=== PATIENT | female | born 1995 | race Caucasian/White ===

== ENCOUNTER → 2017-05-30 18:09 | Outpatient (CLI) | payer MEDICAID, SELFPAY ==
[2017-05-30 20:51] LABS: Chlamydia Trachomatis by PCR Negative (Negative); Neisserai gonorrhoeae by PCR Negative (Negative); Probe Check PASS; Sample Adequacy Control PASS; Specimen Processing Control PASS
== END ==
PROVIDERS: Visit Provider Obstetrics & Gynecology
DX: N89.8 Other specified noninflammatory disorders of vagina (principal); L29.8 Other pruritus
CPT/HCPCS: 87070; 87205; 87491; 87591

== ENCOUNTER → 2017-07-15 11:46 | Outpatient (CLI) | payer MEDICAID, SELFPAY ==
[2017-07-15 16:31] LABS: Absolute Lymphocyte Count 3.25 X10^3/ul (0.83-4.51); Absolute Neutrophil Count 8.9 X10^3/uL (2.0-7.7); Basophil# 0.05 X10^3/uL; Basophil% 0.4 % (0-1); Hematocrit 36.9 % (37-47); Hemoglobin 11.7 g/dl (12.0-15.0); Lymphocyte # 3.25 X10^3/ul (4.0); Lymphocyte % 24.2 % (19-41); Mean Corp Hgb Conc 31.7 g/gl (32-36); Mean Corpuscular Volume 85.2 fL (81-99); Mean Platelet Vol. 10.6 fl (6.2-12.0); Monocyte# 0.73 X10^3/uL; Monocyte% 5.4 % (0-10); Neutrophil # 8.93 X10^3/uL (2.7-7.7); Neutrophil % 66.6 % (47-70); Platelet Count 427 K/mm3 (150-450); RBC Distribution Width CV 14.5 % (11.6-14.6); RBC Distribution Width SD 44.4 fl (35.1-43.9); Red Blood Count 4.33 M/mm3 (4.2-5.4); White Blood Count 13.4 K/mm3 (4.4-11.0)
[2017-07-15 16:40] LABS: POSITIVE COUNT NO; POSITIVE DIFFERENTIAL NO; POSITIVE MORPHOLOGY NO
== END ==
PROVIDERS: Nurse Practitioner Women's Health; Visit Provider Obstetrics & Gynecology
DX: N92.1 Excessive and frequent menstruation with irregular cycle (principal)
CPT/HCPCS: 36415; 85025

== ENCOUNTER → 2017-07-18 13:26 | Outpatient (CLI) | payer MEDICAID, SELFPAY ==
--- NOTE | 2017-07-18 13:27 | US_ITS ---
STUDY: ULTRASOUND OF THE FEMALE PELVIS - COMPLETE REASON FOR EXAM: Female, 22 years old. Menorrhagia LMP: 07/08/2017 TECHNIQUE: Transabdominal and Transvaginal TECHNICAL QUALITY: Adequate. COMPARISON: None. FINDINGS: The uterus is anteverted and is in a midline position. The uterus measures 8.3 x 4.5 x 3.1 cm. There is a Nabothian cyst of the cervix. The endometrium measures 3 mm in thickness, and is hyperechoic. There is no demonstrated endometrial mass. There is no demonstrated myometrial mass. I.U.D. - The patient does not have an I.U.D. The right ovary is visualized. The right ovary measures 4.1 x 2.6 x 2.6 cm. There is no right ovarian cyst or ovarian mass. There is no visualized right adnexal mass or complex lesion. There is normal arterial and normal venous vascularity. The left ovary is visualized. The left ovary measures 2.7 x 2.7 x 3.8 cm. There is no left ovarian cyst or ovarian mass. There is no visualized left adnexal mass or complex lesion. There is normal arterial and normal venous vascularity. There is minimal fluid in the cul-de-sac. The pre void volume of the bladder was 44 ml. Polycystic ovary disease: No. US/Pelvic (Non ) IMPRESSION: Normal female pelvis. Electronically Signed: Blake Pennington DO at 15:09 EDT Tel , Service support ,
--- NOTE | 2017-07-18 13:27 | US_ITS ---
STUDY: ULTRASOUND OF THE FEMALE PELVIS - COMPLETE REASON FOR EXAM: Female, 22 years old. Menorrhagia LMP: 07/08/2017 TECHNIQUE: Transabdominal and Transvaginal TECHNICAL QUALITY: Adequate. COMPARISON: None. FINDINGS: The uterus is anteverted and is in a midline position. The uterus measures 8.3 x 4.5 x 3.1 cm. There is a Nabothian cyst of the cervix. The endometrium measures 3 mm in thickness, and is hyperechoic. There is no demonstrated endometrial mass. There is no demonstrated myometrial mass. I.U.D. - The patient does not have an I.U.D. The right ovary is visualized. The right ovary measures 4.1 x 2.6 x 2.6 cm. There is no right ovarian cyst or ovarian mass. There is no visualized right adnexal mass or complex lesion. There is normal arterial and normal venous vascularity. The left ovary is visualized. The left ovary measures 2.7 x 2.7 x 3.8 cm. There is no left ovarian cyst or ovarian mass. There is no visualized left adnexal mass or complex lesion. There is normal arterial and normal venous vascularity. There is minimal fluid in the cul-de-sac. The pre void volume of the bladder was 44 ml. Polycystic ovary disease: No. US/Transvaginal Non- IMPRESSION: Normal female pelvis. Electronically Signed: Blake Pennington DO at 15:09 EDT Tel , Service support ,
== END ==
PROVIDERS: Family Provider Nurse Practitioner Family; PCP Nurse Practitioner Family; Visit Provider Nurse Practitioner Women's Health
DX: N92.1 Excessive and frequent menstruation with irregular cycle (principal)
CPT/HCPCS: 76830; 76856; 93976

== ENCOUNTER 2017-12-03 14:38 | Emergency (ER) | payer MEDICAID, SELFPAY ==
[2017-12-03 14:38] VITALS: BP 167/98; PULSE 99; RESP 16; TEMP 37.2; O2SAT 98; BMI 48.5
--- NOTE | 2017-12-03 16:03 | ED.DCSUM_ITS ---
- ER Visit Summary Date of Service: 12/03/17 Chief Complaint: Abdominal pain and diarrhea History of Present Illness: The patient is a 22 F who goes to the [facility]. She reports that 2 days ago she had 4-6 episodes of diarrhea that was not black or bloody. States that she had no diarrhea yesterday. Approximately 930 yesterday evening she took a dose of Pepto-Bismol for heartburn/indigestion. States that today she has had 4 episodes of diarrhea. 3 of these have been black and the last one was dark green. Patient reports that she has cramping epigastric pain that began today. Stated 10 at worst and 6 out of 10 currently. Is worsened by food and relieved by remaining still. She has had nausea without vomiting. She also reports that she has had a poor appetite for 1-2 weeks. She has never had anything like this before. Patient denies sick contacts. Has not been camping out of the country. No possible bad food exposure. Does not drink well water. No recent antibiotic use. Physical Examination: Vitals: Stable. Afebrile. General: Well-nourished and well-developed. Head: Normocephalic atraumatic. Neck: Supple, no lymphadenopathy. No JVD. Nontender. Cardiovascular: Regular rate and rhythm. No murmurs. Respiratory: No respiratory distress. Clear to auscultation bilaterally. Abdominal: Soft, mild epigastric tenderness to palpation, nondistended, normal bowel sounds. No guarding, rebound, or peritoneal signs. Back: Nontender. Extremities: Nontender, no edema. Skin: Normal color, no rash. Neurologic: Alert and oriented ?3. Cranial nerves II through XII are intact. Normal strength and sensation. Psych: Normal affect. Test Results: CBC is remarkable for a white count of 15.0, H&H of 11.0 and 35.9 , platelets of 451. Chem-7 is normal. Of note her BUN is 10. LFTs marked for an AST of 10. Lipase is normal. test is negative. Emergency Department Course and Treatment: Patient was given a dose of Zofran IV and a GI cocktail p.o. She is resting comfortably. Treatment Plan: I suspect the patient's black stool was from the Pepto-Bismol she took yesterday. She will be discharged on Prilosec and Zofran. Instructed to follow-up the [facility] Pastor in 3-5 days if not improving. Return to the emergency department for any worsening symptoms. Disposition: To home in improved and stable condition. Impression: 1. Diarrhea. This note was generated with [employer] dictation software. It may contain incorrect words, spelling, and punctuation that were not noted in review of the chart prior to signing ED Disposition - Plan for ED Patient: Chief Complaint: GI Bleed Instructions: ED Diarrhea Viral Prescriptions: Ondansetron [Zofran Odt] 4 mg PO Q8H PRN PRN #10 tablet PRN Reason: Nausea Omeprazole [Prilosec] 20 mg PO DAILY #30 capsule Referrals: [facility] Lur[facility] Pastor [Primary Care Provider] - 3-5 Days if not improving
[2017-12-03] MEDS: 0.9% Normal Saline 1,000 ML 1000 ML IV (16:06)
[2017-12-03] MEDS: Mag Hydrox/Al Hydrox/Simeth 30 ML UDC PO (16:06)
[2017-12-03] MEDS: Ondansetron 4 MG/2 ML Vial IV (16:06)
[2017-12-03 16:11] LABS: Absolute Lymphocyte Count 3.45 X10^3/ul (0.83-4.51); Absolute Neutrophil Count 10.4 X10^3/uL (2.0-7.7); Basophil# 0.05 X10^3/uL; Basophil% 0.3 % (0-1); Eosinophils% 3.3 % (0-5); Hematocrit 35.9 % (37-47); Lymphocyte # 3.45 X10^3/ul (4.0); Lymphocyte % 22.9 % (19-41); Mean Corp Hgb Conc 30.6 g/gl (32-36); Mean Corpuscular Hgb 24.8 pg (27.0-32.0); Mean Corpuscular Volume 80.9 fL (81-99); Mean Platelet Vol. 9.8 fl (6.2-12.0); Monocyte# 0.67 X10^3/uL; Monocyte% 4.5 % (0-10); Neutrophil # 10.35 X10^3/uL (2.7-7.7); Neutrophil % 68.9 % (47-70); Platelet Count 451 K/mm3 (150-450); RBC Distribution Width CV 15.5 % (11.6-14.6); RBC Distribution Width SD 45.7 fl (35.1-43.9); Red Blood Count 4.44 M/mm3 (4.2-5.4)
[2017-12-03 16:15] LABS: POSITIVE COUNT NO; POSITIVE DIFFERENTIAL NO; POSITIVE MORPHOLOGY NO
[2017-12-03 16:20] LABS: AST(SGOT) 10 U/L (15-37); Alanine Aminotransfer ALT/SGPT 15 U/L (13-56); Albumin, Serum 3.2 g/dL (3.2-5.0); Alkaline Phosphatase 86 U/L (45-117); Anion Gap 6 (5-15); BUN 10 mg/dL (7-18); BUN/Creat Ratio 13.5 RATIO (10-20); Bilirubin, Direct 0.09 mg/dL (0.00-0.30); Calcium,Total 8.7 mg/dL (8.5-10.1); Chloride 107 mmol/L (98-107); Creatinine, Serum 0.74 mg/dL (0.55-1.02); EST Glomerular Filtration Rate 105 mL/min (>60); Est Glom Filt Rate - Afr Amer 127 mL/min (>60); Estimated Creatinine Clearance 116.95 ml/min; Glucose 93 mg/dL (74-106); Lipase 104 U/L (73-393); Potassium 3.5 mmol/L (3.5-5.1); Protein, Total 7.2 g/dL (6.4-8.2); Sodium Level 142 mmol/L (136-145)
[2017-12-03 16:29] LABS: Pregnancy, Serum, hCG Quali. NEGATIVE Negative (0-9 Nonpreg)
[2017-12-03 16:55] VITALS: BP 128/74; PULSE 79; RESP 14; O2SAT 98
== END 2017-12-03 16:56 | disposition home or self-care (01) ==
LOC: ED 15:32
PROVIDERS: Emergency Provider Emergency Medicine
DX: R19.7 Diarrhea, unspecified (principal); R10.13 Epigastric pain
CPT/HCPCS: 80048; 80076; 83690; 84703; 85025; 99284; J7030; A4216; J2405

== ENCOUNTER 2018-04-16 14:52 | Emergency (ER) | payer MEDICAID, SELFPAY ==
[2018-04-16 14:52] VITALS: BMI 47.3
[2018-04-16 14:53] VITALS: BP 179/91; PULSE 101; RESP 18; TEMP 36.4; O2SAT 100; BMI 47.1
--- NOTE | 2018-04-16 16:31 | ED.DCSUM_ITS ---
- ER Visit Summary Date of Service: 04/16/18 Chief Complaint: Atraumatic left shoulder pain and foot pain times 1 month History of Present Illness: The patient is a 22 F Patient presents with atraumatic left shoulder pain and left foot pain. She denies any paresthesia, anesthesia motors. She denies radicular pain. She does report pain medial side of the left arm and states occasionally will shoot down to her wrist. She states she may have lifted something heavy. She does not do overhead work. She has no prior history of shoulder problems. She denies cardiac respiratory symptoms. Her blood pressure is elevated. She denies history of hypertension. She states the pain in her foot is worse when she puts pressure on it. She denies symptoms of claudication. She denies discoloration. There is no known history. Physical Examination: Vital signs remarkable for a blood pressure of 179/91. Repeat is 157/86. BMI is 47.2. HEENT exam unremarkable. There is no pain abrasion over the clavicle or AC joint. She has had pain the patient over the deltoid muscle and proximal humerus. She reports pain medial side with abduction to 90 degrees. Axillary, median, radial and ulnar function intact. Biceps, brachialis and triceps reflex are 2+ and symmetric. Radial pulses palpable and symmetric. Examination left foot reveals no swelling, discoloration. There is no pain to palpation. DP PT pulses are palpable. No rash or lesions noted. Test Results: Three-view x-ray of shoulder was interpreted by me as negative for fracture, subluxation, dislocation or calcification of the supraspinatus tendon. Emergency Department Course and Treatment: X-ray of the left shoulder was obtained to determine if there is evidence of calcification of the supraspinatus tendon or any abnormalities would explain her pain. Treatment Plan: Avoid activity causing pain, ice and anti-inflammatory Disposition: Discharged home Impression: 1. Left shoulder muscle strain nonspecified 2. Left foot pain unknown etiology This note was generated with [employer] dictation software. It may contain incorrect words, spelling, and punctuation that were not noted in review of the chart prior to signing ED Disposition - Plan for ED Patient: Chief Complaint: Upper Extremity Injury Instructions: ED Sprain Shoulder Referrals: Lurdes Arellano [Primary Care Provider] - 1 Week if not improving
--- NOTE | 2018-04-16 16:45 | RAD_ITS ---
STUDY: X-RAY - LEFT SHOULDER REASON FOR EXAM: Female, 22 years old. Left shoulder pain. Unsure of injury. TECHNIQUE: 4 view(s) of the shoulder. COMPARISON: None. FINDINGS: Normal glenohumeral articulation. Normal acromioclavicular joint. Normal acromion. Normal humeral head and visualized proximal humerus. The soft tissue structures are unremarkable. Normal visualized pulmonary apex. RAD/Shoulder min 2 Views IMPRESSION: Normal x-ray examination of the shoulder. Electronically Signed: Thierno Booth MD at 17:24 EST Tel , Service support ,
[2018-04-16 17:06] VITALS: BP 134/80; PULSE 94; RESP 16
== END 2018-04-16 17:07 | disposition home or self-care (01) ==
PROVIDERS: Emergency Provider Emergency Medicine
DX: S46.912A Strain of unspecified muscle, fascia and tendon at shoulder and upper arm level, left arm, initial encounter (principal); X58.XXXA Exposure to other specified factors, initial encounter; M79.672 Pain in left foot; E66.9 Obesity, unspecified; Z68.42 Body mass index [BMI] 45.0-49.9, adult; Z79.899 Other long term (current) drug therapy
CPT/HCPCS: 73030; 99282

== ENCOUNTER 2018-10-07 14:48 | Emergency (ER) | payer MEDICAID, SELFPAY ==
[2018-10-07 14:50] VITALS: BP 167/96; PULSE 101; RESP 18; TEMP 36.2; BMI 47.1
--- NOTE | 2018-10-07 15:12 | ED.VISSUMM ---
- ER Visit Summary Date of Service: 10/07/18 Chief Complaint: [Abdominal pain] History of Present Illness: The patient is a 23 F [presents the emergency department with complaint of abdominal pain that she is had off-and-on for couple of months. Patient states that over the last week she has had decreased appetite and nausea. Patient's complaining of a change in her stool that is somewhat black and kevin. Patient denies using ibuprofen or any type of NSAIDs on a regular basis. Patient is currently on her menstrual period. She denies any fevers. She denies diarrhea but states that the stool is more loose. She denies recent travel. She denies recent antibiotic usage. Patient has a history of PCOS and hypothyroidism. Past surgical history includes tonsils and adenoids.] Physical Examination: [HEENT-PERRLA, EOMI. Cranial nerves II through XII grossly intact. TMs clear. Mucous membranes moist. No adenopathy. Cardiovascular-regular rate and rhythm without murmur or ectopy Lungs-clear to auscultation, chest wall stable without crepitus or subcu emphysema Abdomen-normoactive bowel sounds, soft. Patient has some mild diffuse tenderness over the epigastric region. There is no rebound, rigidity, or perineal signs. No tenderness over McBurney's. She has a negative Clement sign. No masses palpated. Patient is morbidly obese. Rectal exam-patient had no hemorrhoids or fissures noted. No rectal masses palpated in the rectal vault. Patient had brown stool that was formed. Extremities-intact ?4, normal range of motion, normal pulses, atraumatic] Test Results: [CBC with differential white of 14.6, hemoglobin 12, hematocrit 38, placed 398. Chemistries unremarkable. LFTs were normal. Lipase was normal. Urinalysis was normal. hCG was negative. Hemoccult was negative. CT flank showed a right ovarian cyst otherwise nothing acute. She has no tenderness over the right lower quadrant and I feel the cyst is in incidental finding and not the cause of her symptoms.] Emergency Department Course and Treatment: [She was given normal saline and Zofran.] Treatment Plan: [Patient will be given a prescription for Zofran and referral to general surgery medical transcription radiology if her symptoms persist as she may need further work-up such as possibly EGD or colonoscopy.] Disposition: [Discharged home in stable condition] Impression: Abdominal pain-etiology uncertain [] This note was generated with [employer] dictation software. It may contain incorrect words, spelling, and punctuation that were not noted in review of the chart prior to signing ED Disposition - Plan for ED Patient: Referrals: Mariana Pastor,Lurdes Goff [Primary Care Provider] -
[2018-10-07 15:32] LABS: Absolute Lymphocyte Count 3.17 X10^3/ul (0.83-4.51); Absolute Neutrophil Count 10.4 X10^3/uL (2.0-7.7); Basophil# 0.04 X10^3/uL; Basophil% 0.3 % (0-1); Eosinophil# 0.33 X10^3/uL; Eosinophils% 2.3 % (0-5); Hematocrit 38.5 % (37-47); Hemoglobin 12.5 g/dl (12.0-15.0); Lymphocyte # 3.17 X10^3/ul (4.0); Lymphocyte % 21.8 % (19-41); Mean Corp Hgb Conc 32.5 g/gl (32-36); Mean Corpuscular Hgb 25.8 pg (27.0-32.0); Mean Corpuscular Volume 79.5 fL (81-99); Mean Platelet Vol. 9.5 fl (6.2-12.0); Monocyte% 4.1 % (0-10); Neutrophil % 71.3 % (47-70); Platelet Count 398 K/mm3 (150-450); RBC Distribution Width CV 15.8 % (11.6-14.6); RBC Distribution Width SD 46.1 fl (35.1-43.9); Red Blood Count 4.84 M/mm3 (4.2-5.4); White Blood Count 14.6 K/mm3 (4.4-11.0)
[2018-10-07 15:35] LABS: POSITIVE COUNT NO; POSITIVE DIFFERENTIAL NO; POSITIVE MORPHOLOGY NO
[2018-10-07 15:47] LABS: ALB/GLOB Ratio 0.8 RATIO (0.9-2.4); AST(SGOT) 13 U/L (15-37); Alanine Aminotransfer ALT/SGPT 14 U/L (13-56); Albumin, Serum 3.3 g/dL (3.2-5.0); Alkaline Phosphatase 107 U/L (45-117); Anion Gap 8 (5-15); BUN 9 mg/dL (7-18); BUN/Creat Ratio 11.1 RATIO (10-20); Calcium,Total 8.9 mg/dL (8.5-10.1); Chloride 104 mmol/L (98-107); Creatinine, Serum 0.81 mg/dL (0.55-1.02); EST Glomerular Filtration Rate 94 mL/min (>60); Est Glom Filt Rate - Afr Amer 113 mL/min (>60); Estimated Creatinine Clearance 105.94 ml/min; Glucose 111 mg/dL (74-106); Lipase 85 U/L (73-393); Potassium 3.6 mmol/L (3.5-5.1); Protein, Total 7.3 g/dL (6.4-8.2); Sodium Level 139 mmol/L (136-145)
[2018-10-07 15:54] LABS: Internal QC Validated? YES +Cl - CLEAR BKGD; Pregnancy, Serum, hCG Quali. NEGATIVE Negative
[2018-10-07 15:58] LABS: Lactic Acid 1.1 mmol/L (0.4-2.0)
[2018-10-07 16:07] LABS: Color, Urine Yellow (Yellow); Glucose, Dipstick Normal (Normal); Ketone-Dipstick 5 mg/dl (Negative); Leukocyte Esterase-Dipstick 25 /ul (Negative); Nitrite-Dipstick Negative (Negative); Occult Blood-Urine 10 /ul (Negative); Protein-Dipstick 15 mg/dl (Negative); Red Blood Cells-Urine 0 SEEN /hpf (0-5); Urine Bilirubin Dipstick Negative (Negative); Urine Clarity Clear (Clear); Urine Urobilinogen Normal (Normal); Urine pH 6.5 (5.0 - 8.0)
--- NOTE | 2018-10-07 16:07 | CT_ITS ---
STUDY: CT ABDOMEN AND PELVIS WITHOUT CONTRAST REASON FOR EXAM: Female, 23 years old. Epigastric abdominal pain. RADIATION DOSAGE (If Supplied By Facility): CTDIvol = ( 23.49 ) mGy, DLP = ( 1460.32 ) mGycm TECHNIQUE: Transaxial images were obtained from the dome of the diaphragm to the symphysis pubis without oral contrast, and without intravenous contrast. Sagittal and coronal images were reconstructed. Individualized dose optimization techniques were used for this CT. COMPARISON: None. FINDINGS: Lung bases are clear. Visualized heart is normal. The liver is unremarkable. The gallbladder is unremarkable. The spleen and pancreas are unremarkable. The adrenal glands are normal. The kidneys are unremarkable. No stones or hydronephrosis. The aorta is normal in caliber. There is no free fluid, free air, or organized collection. No bowel obstruction or inflammatory change. Normal appendix. Urinary bladder is unremarkable. The right ovary is prominent compared to the left. There is a 2.6 cm cyst, likely physiologic but slightly greater than a typical follicular cyst. Normal abdominal wall. Normal osseous structures. CT/Abdomen/Pelvis without Cont IMPRESSION: Mild right ovarian prominence with a 2.6 cm cyst or dominant follicle. Consider pelvic ultrasound with duplex imaging if the patient has pelvic pain. Electronically Signed: Ranjana Turcios MD at 16:57 EDT Tel , Service support ,
[2018-10-07 16:18] LABS: Bacteria RARE /hpf (None Seen); Mucous, Urine 3+ /hpf (<or=2+); Squamous Epithelial Cells - UA 0-5 SEEN /hpf (5-10); White Blood Cells 0-5 SEEN /hpf (0-5)
--- NOTE | 2018-10-07 17:03 | ED.DEP ---
ED Disposition - Plan for ED Patient: Instructions: ABDOMINAL PAIN, Unknown Cause, (Female) Prescriptions: Ondansetron [Zofran Odt] 4 mg PO Q8H PRN PRN #10 tab PRN Reason: Nausea Prescription Printed Referrals: Lurdes Arellano [Primary Care Provider] - Yaneth Ontiveros MD [STAFF PHYSICIAN] - 3-5 Days
[2018-10-07 17:23] VITALS: BP 150/81; PULSE 86; RESP 18
== END 2018-10-07 17:16 | disposition home or self-care (01) ==
LOC: ED 15:18
PROVIDERS: Emergency Provider Emergency Medicine
DX: R10.13 Epigastric pain (principal); E03.9 Hypothyroidism, unspecified; E28.2 Polycystic ovarian syndrome; Z79.899 Other long term (current) drug therapy; Z72.0 Tobacco use
CPT/HCPCS: 74176; 80053; 81001; 82274; 83605; 83690; 84703; 85025; 99283; A4216

== ENCOUNTER → 2018-10-20 13:55 | Outpatient (CLI) | payer MEDICAID, SELFPAY ==
[2018-10-07 14:50] VITALS: BMI 47.1
--- NOTE | 2018-10-20 13:57 | US_ITS ---
STUDY: ULTRASOUND OF THE FEMALE PELVIS - COMPLETE REASON FOR EXAM: Female, 23 years old. Pain LMP: October 15, 2018 TECHNIQUE: Endovaginal TECHNICAL QUALITY: Adequate. COMPARISON: None. FINDINGS: The uterus is anteverted and is in a midline position. The uterus measures 6.9 x 4.5 x 2.5 cm. Nabothian cyst at the uterine cervix. The endometrium measures 2.3 mm in thickness, and is hyperechoic. There is no demonstrated endometrial mass. There is no demonstrated myometrial mass. The patient does not have an I.U.D. The right ovary is visualized. The right ovary measures 5.7 x 3.2 x 3.0 cm. There is a 3 cm right ovarian cyst. A 3 mm echogenic focus with posterior shadowing possibly a focal calcification. There is normal arterial and normal venous vascularity. The left ovary is visualized. The left ovary measures 3.8 x 3.2 x 2.6 cm. There is no left ovarian cyst or ovarian mass. There is no visualized left adnexal mass or complex lesion. There is normal arterial and normal venous vascularity. There is no fluid in the cul-de-sac. The pre void volume of the bladder was 145 ml. US/Pelvic (Non ) IMPRESSION: Nabothian cyst. Right ovarian cyst and possible calcific focus. Electronically Signed: Kristian Lange DO at 18:28 EDT Tel [phone], Service support ,
--- NOTE | 2018-10-20 13:57 | US_ITS ---
STUDY: ULTRASOUND OF THE FEMALE PELVIS - COMPLETE REASON FOR EXAM: Female, 23 years old. Pain LMP: October 15, 2018 TECHNIQUE: Endovaginal TECHNICAL QUALITY: Adequate. COMPARISON: None. FINDINGS: The uterus is anteverted and is in a midline position. The uterus measures 6.9 x 4.5 x 2.5 cm. Nabothian cyst at the uterine cervix. The endometrium measures 2.3 mm in thickness, and is hyperechoic. There is no demonstrated endometrial mass. There is no demonstrated myometrial mass. The patient does not have an I.U.D. The right ovary is visualized. The right ovary measures 5.7 x 3.2 x 3.0 cm. There is a 3 cm right ovarian cyst. A 3 mm echogenic focus with posterior shadowing possibly a focal calcification. There is normal arterial and normal venous vascularity. The left ovary is visualized. The left ovary measures 3.8 x 3.2 x 2.6 cm. There is no left ovarian cyst or ovarian mass. There is no visualized left adnexal mass or complex lesion. There is normal arterial and normal venous vascularity. There is no fluid in the cul-de-sac. The pre void volume of the bladder was 145 ml. US/Transvaginal Non- IMPRESSION: Nabothian cyst. Right ovarian cyst and possible calcific focus. Electronically Signed: Kristian Lange DO at 18:28 EDT Tel [phone], Service support ,
== END ==
PROVIDERS: Referring Provider Obstetrics & Gynecology; Visit Provider Obstetrics & Gynecology
DX: R10.2 Pelvic and perineal pain (principal)
CPT/HCPCS: 76830; 76856; 93976

== ENCOUNTER → 2018-11-05 14:35 | Outpatient (CLI) | payer MEDICAID, SELFPAY ==
[2018-11-05 11:09] VITALS: BMI 47.1
[2018-11-05 16:45] LABS: Chlamydia Trachomatis by PCR Negative (Negative); Neisserai gonorrhoeae by PCR Negative (Negative); Probe Check PASS; Sample Adequacy Control PASS; Specimen Processing Control PASS
[2018-11-11 10:54] LABS: HPV Reflexed? NOT INDICATED
== END ==
PROVIDERS: Referring Provider Nurse Practitioner Women's Health; Visit Provider Nurse Practitioner Women's Health
DX: Z12.4 Encounter for screening for malignant neoplasm of cervix (principal); A64 Unspecified sexually transmitted disease
CPT/HCPCS: 87491; 87591; 87624; 88175; G0145

== ENCOUNTER → 2018-12-24 08:00 | Outpatient (CLI) | payer MEDICAID, SELFPAY ==
[2018-11-05 11:09] VITALS: BMI 47.1
--- NOTE | 2018-12-24 08:02 | US_ITS ---
STUDY: ULTRASOUND OF THE FEMALE PELVIS - COMPLETE REASON FOR EXAM: Female, 23 years old. Follow-up right ovarian cyst . LMP: December 11, 2018. TECHNIQUE: Transabdominal and Transvaginal TECHNICAL QUALITY: Adequate. COMPARISON: Pelvic ultrasound, October 20, 2018. FINDINGS: The uterus is anteverted and is in a midline position. The uterus measures 7.8 x 3.0 x 4.2 cm cm. There is a Nabothian cyst of the cervix. The endometrium measures mm in thickness, and is hyperechoic. There is no demonstrated endometrial mass. There is no demonstrated myometrial mass. I.U.D. - The patient does not have an I.U.D. The right ovary is visualized. The right ovary measures 5.5 x 2.9 x 2.5 cm. There is a 2.6 x 3.0 x 2.0 cm simple cyst. This appears essentially stable. Focal calcification described on the prior study is not appreciated. There is no visualized right adnexal mass or complex lesion. There is normal arterial and normal venous vascularity. The left ovary is visualized. The left ovary measures 4.2 x 3.2 x 2.5 cm. There are multiple follicles of the left ovary without a dominant cyst. There is no visualized left adnexal mass or complex lesion. There is normal arterial and normal venous vascularity. There is no fluid in the cul-de-sac. The urinary bladder was incompletely distended. Polycystic ovary disease: No. US/Pelvic (Non ) IMPRESSION: 1. Stable right renal cyst. The questionable calcific focus seen on the prior study is no longer noted. 2. Stable uterus and left ovary. Electronically Signed: Miguelito Mares DO at 17:29 EDT Tel [phone], Service support ,
--- NOTE | 2018-12-24 08:02 | US_ITS ---
STUDY: ULTRASOUND OF THE FEMALE PELVIS - COMPLETE REASON FOR EXAM: Female, 23 years old. Follow-up right ovarian cyst . LMP: December 11, 2018. TECHNIQUE: Transabdominal and Transvaginal TECHNICAL QUALITY: Adequate. COMPARISON: Pelvic ultrasound, October 20, 2018. FINDINGS: The uterus is anteverted and is in a midline position. The uterus measures 7.8 x 3.0 x 4.2 cm cm. There is a Nabothian cyst of the cervix. The endometrium measures mm in thickness, and is hyperechoic. There is no demonstrated endometrial mass. There is no demonstrated myometrial mass. I.U.D. - The patient does not have an I.U.D. The right ovary is visualized. The right ovary measures 5.5 x 2.9 x 2.5 cm. There is a 2.6 x 3.0 x 2.0 cm simple cyst. This appears essentially stable. Focal calcification described on the prior study is not appreciated. There is no visualized right adnexal mass or complex lesion. There is normal arterial and normal venous vascularity. The left ovary is visualized. The left ovary measures 4.2 x 3.2 x 2.5 cm. There are multiple follicles of the left ovary without a dominant cyst. There is no visualized left adnexal mass or complex lesion. There is normal arterial and normal venous vascularity. There is no fluid in the cul-de-sac. The urinary bladder was incompletely distended. Polycystic ovary disease: No. US/Transvaginal Non- IMPRESSION: 1. Stable right renal cyst. The questionable calcific focus seen on the prior study is no longer noted. 2. Stable uterus and left ovary. Electronically Signed: Miguelito Mares DO at 17:29 EDT Tel [phone], Service support ,
== END ==
PROVIDERS: Referring Provider Nurse Practitioner Women's Health; Visit Provider Nurse Practitioner Women's Health
DX: N83.201 Unspecified ovarian cyst, right side (principal)
CPT/HCPCS: 76830; 76856; 93976

== ENCOUNTER → 2019-12-14 | Outpatient (CLI) | payer MEDICAID, SELFPAY ==
[2019-12-14 13:14] VITALS: BMI 47.1
[2019-12-17 13:17] LABS: HPV APTIMA, High Risk Negative (Negative)
== END | disposition home or self-care (01) ==
LOC: LABSPEC 14:03
PROVIDERS: Referring Provider Nurse Practitioner Women's Health; Visit Provider Nurse Practitioner Women's Health
DX: N87.0 Mild cervical dysplasia (principal)
CPT/HCPCS: 87624; 88175; G0145

== ENCOUNTER → 2020-01-27 15:53 | Outpatient (CLI) | payer MEDICAID, SELFPAY ==
[2019-12-14 13:14] VITALS: BMI 47.1
[2020-01-27 16:49] LABS: Absolute Lymphocyte Count 3.49 X10^3/uL (0.83-4.51); Basophil# 0.07 X10^3/uL; Basophil% 0.5 % (0-1); Eosinophil# 0.33 X10^3/uL; Eosinophils% 2.4 % (0-5); Hematocrit 38.6 % (37-47); Lymphocyte # 3.49 X10^3/ul (4.0); Lymphocyte % 25.6 % (19-41); Mean Corp Hgb Conc 31.1 g/dL (32-36); Mean Corpuscular Hgb 25.8 pg (27.0-32.0); Mean Platelet Vol. 10.2 fl (6.2-12.0); Monocyte# 0.73 X10^3/uL; Monocyte% 5.4 % (0-10); NRBC Flagged by Analyzer 0 % (0-5); Neutrophil # 8.95 X10^3/uL (2.7-7.7); Neutrophil % 65.6 % (47-70); Platelet Count 481 K/mm3 (150-450); RBC Distribution Width CV 15.2 % (11.6-14.6); RBC Distribution Width SD 46.1 fl (35.1-43.9); Red Blood Count 4.65 M/mm3 (4.2-5.4); White Blood Count 13.6 K/mm3 (4.4-11.0)
[2020-01-27 17:50] LABS: Vitamin D,25 Hydroxy 61.3 ng/mL
[2020-01-27 18:11] LABS: ALB/GLOB Ratio 0.8 RATIO (0.9-2.4); AST(SGOT) 16 U/L (15-37); Alanine Aminotransfer ALT/SGPT 18 U/L (13-56); Albumin, Serum 3.3 g/dL (3.2-5.0); Alkaline Phosphatase 103 U/L (45-117); Anion Gap 6 (5-15); BUN 12 mg/dL (7-18); BUN/Creat Ratio 15.5 RATIO (10-20); Calcium,Total 9.2 mg/dL (8.5-10.1); Chloride 106 mmol/L (98-107); Cholesterol 166 mg/dL (200); Creatinine, Serum 0.78 mg/dL (0.55-1.02); EST Glomerular Filtration Rate 97 mL/min (>60); Est Glom Filt Rate - Afr Amer 118 mL/min (>60); Globulin 4.1 g/dL (2.2-4.2); Glucose 97 mg/dL (74-106); High Density Lipoprotein 44 mg/dL; Potassium 3.8 mmol/L (3.5-5.1); Protein, Total 7.4 g/dL (6.4-8.2); Sodium Level 137 mmol/L (136-145); Thyroid Stim Hormone (TSH) 2.37 uIU/mL (0.358-3.74); Triglycerides 171 mg/dL; Very Low Density Lipoprotein 34 mg/dL (5-40)
== END ==
DX: E03.9 Hypothyroidism, unspecified (principal); E55.9 Vitamin D deficiency, unspecified; E66.01 Morbid (severe) obesity due to excess calories
CPT/HCPCS: 36415; 80053; 80061; 82306; 84439; 84443; 85025

== ENCOUNTER → 2020-12-14 | Outpatient (CLI) | payer MEDICAID, SELFPAY ==
[2020-12-19 22:32] LABS: HPV Reflexed? NOT INDICATED
== END | disposition home or self-care (01) ==
LOC: LABSPEC 15:43
PROVIDERS: Referring Provider Nurse Practitioner Women's Health; Visit Provider Nurse Practitioner Women's Health
DX: Z12.4 Encounter for screening for malignant neoplasm of cervix (principal)
CPT/HCPCS: 88175; G0145

== ENCOUNTER 2021-01-30 18:35 | Emergency (ER) | payer MEDICAID, SELFPAY ==
[2021-01-30 18:37] VITALS: BP 163/83; PULSE 86; RESP 14; TEMP 36.2; O2SAT 96; BMI 44.3
--- NOTE | 2021-01-30 18:43 | EX.ED.GENINJ ---
HPI History of Present Illness Chief Complaint: Laceration Informant: patient Onset/Context/Timing Onset: Today and Hours (1) Mechanism/Context: Incised (Accidentally while cutting boxes with a newly-bladed box knife) Quality of Pain: - (sore) Location: L middle finger Current Severity: Mild Maximum Severity: Moderate Associated Symptoms Associated Symptoms: Negative for Parasthesias, Weakness and Loss of function Narrative Narrative: None work-related injury, patient accidentally cut her left middle finger with a razor blade when she was using a box knife to help break down some boxes. [id number]. Tetanus Immunization: 5-10 years [facility] Medical History (Updated 01/30/21 @ 18:[address] Angelito Bauman MD) Abnormal Pap smear of cervix PCOS (polycystic ovarian syndrome) Thyroid disease Home Medications cholecalciferol (vitamin D3) 1,250 mcg (50,000 unit) capsule 50,000 unit PO QWEEK 05/30/17 [History Last Taken Unknown] levothyroxine 75 mcg tablet 75 mcg PO DAILY 05/30/17 [History Last Taken Unknown] metformin 500 mg tablet 500 mg PO DAILY 05/30/17 [History Last Taken Unknown] spironolactone 50 mg tablet 50 mg PO QAM 05/30/17 [History Last Taken Unknown] norethindrone (contraceptive) 0.35 mg tablet 0.35 mg PO QDAY #84 tab 12/14/20 [Rx Last Taken Unknown] Allergy/AdvReac Type Severity Reaction Status Date / Time clindamycin Allergy Rash Verified 01/30/21 18:36 Family History Grandfather Heart disease Mother Diabetes Grandmother Diabetes Surgical History History of tonsillectomy Social History current occupational status: employed current occupation: [employer] Smoking Status: Current every day smoker tobacco type: cigarettes alcohol intake: never substance use type: does not use caffeine: Yes what type of physical activity do you participate in: none seatbelt use: always do you feel safe at home: Yes additional social history: single ROS ROS ED Constitutional Constitutional ED: Denies chills or fever(s) Musculoskeletal Musculoskeletal: Reports extremity pain; Denies neck pain Integumentary Reports as per HPI and wounds; Denies Abrasions or rash Neurologic Neurologic: Denies paresthesias or weakness EXAM Physical Exam Const Vital Signs: 01/30/21 18:37 Temperature 97.1 F L Temperature Source Temporal Pulse Rate 86 Respiratory Rate 14 Blood Pressure 163/83 H Blood Pressure Mean 109 Pulse Ox 96 Positive well nourished and well developed General Appearance ED: well developed and NAD Neck full ROM and supple Back/Spine normal ROM and normal to inspection Extremity Extremity Narrative: Partial-thickness laceration present to the radial aspect of the left long finger distal phalanx. No bony tenderness. No subungual hematoma. Nail intact without damage. FDS, FDP, extensor all intact. No other injuries apparent to the hand. Neuro oriented x3, no focal motor deficits and no sensory deficits noted Sensorium / Orientation: alert Psych mental status grossly normal and thought process normal Skin no wounds Skin Narrative: 1 cm curvilinear partial-thickness laceration to the radial aspect of the left middle finger distal phalanx, just at the radial aspect of the nail. No active bleeding, not able to easily pull up a flap of skin, no tissue loss. Rashes: no rashes MDM MDM MDM Narrative Medical decision making narrative: I think her tetanus is up-to-date enough to avoid updating her further since this is not a high risk tetanus injury. This wound appears to be holding together well without bleeding, she states that it was a flap there, I think it would be reasonable to clean it and manage it conservatively with bandage without suturing which she is okay with. Discharge Plan Triage Chief Complaint: Laceration ED Provider: Angelito Bauman Dx/Rx/DC Orders Clinical Impression: Laceration of left middle finger Instructions: ED Laceration Small or ... Prescriptions: No Action metformin 500 mg tablet 500 mg PO DAILY RF: 0 cholecalciferol (vitamin D3) 50,000 unit capsule 50,000 unit PO QWEEK RF: 0 spironolactone 50 mg tablet 50 mg PO QAM RF: 0 levothyroxine 75 mcg tablet 75 mcg PO DAILY RF: 0 norethindrone (contraceptive) [Jacquelin] 0.35 mg tablet 0.35 mg PO QDAY Qty: 84 RF: 4 Primary Care Provider: [facility] Lurdes Montiel [facility]errals: [facility] Goff [Primary Care Provider] - As Needed Disposition Disposition: Home, Self Care
== END 2021-01-30 18:50 | disposition home or self-care (01) ==
LOC: ED 18:50
PROVIDERS: Emergency Provider Emergency Medicine
DX: S61.213A Laceration without foreign body of left middle finger without damage to nail, initial encounter (principal); W26.0XXA Contact with knife, initial encounter; Y93.89 Activity, other specified; Y92.9 Unspecified place or not applicable; Y99.9 Unspecified external cause status; F17.210 Nicotine dependence, cigarettes, uncomplicated; E07.9 Disorder of thyroid, unspecified; Z79.899 Other long term (current) drug therapy
CPT/HCPCS: 99282

== ENCOUNTER → 2021-02-09 15:40 | Outpatient (CLI) | payer MEDICAID, SELFPAY ==
[2021-02-09 17:13] LABS: Absolute Lymphocyte Count 3.22 X10^3/uL (0.83-4.51); Absolute Neutrophil Count 6.8 X10^3/uL (2.0-7.7); Basophil# 0.07 X10^3/uL; Basophil% 0.6 % (0-1); Eosinophil# 0.32 X10^3/uL; Eosinophils% 2.9 % (0-5); Hematocrit 40.1 % (37-47); Hemoglobin 12.5 g/dL (12.0-15.0); Lymphocyte # 3.22 X10^3/ul (0.83-4.51); Mean Corp Hgb Conc 31.2 g/dL (32-36); Mean Corpuscular Hgb 26.1 pg (27.0-32.0); Mean Corpuscular Volume 83.7 fL (81-99); Mean Platelet Vol. 10.2 fl (6.2-12.0); Monocyte# 0.65 X10^3/uL; Monocyte% 5.8 % (0-10); NRBC Flagged by Analyzer 0 % (0-5); Neutrophil # 6.82 X10^3/uL (2.7-7.7); Neutrophil % 61.3 % (47-70); Platelet Count 498 K/mm3 (150-450); RBC Distribution Width CV 14.4 % (11.6-14.6); RBC Distribution Width SD 44.1 fl (35.1-43.9); Red Blood Count 4.79 M/mm3 (4.2-5.4); White Blood Count 11.1 K/mm3 (4.4-11.0)
[2021-02-09 17:40] LABS: Vitamin B12 342 pg/mL (211-911); Vitamin D,25 Hydroxy 67.4 ng/mL
[2021-02-09 17:48] LABS: ALB/GLOB Ratio 0.8 RATIO (0.9-2.4); AST(SGOT) 13 U/L (15-37); Alanine Aminotransfer ALT/SGPT 16 U/L (13-56); Albumin, Serum 3.2 g/dL (3.2-5.0); Alkaline Phosphatase 97 U/L (45-117); Anion Gap 6 (5-15); BUN 13 mg/dL (7-18); BUN/Creat Ratio 17.4 RATIO (10-20); Calcium,Total 8.9 mg/dL (8.5-10.1); Chloride 106 mmol/L (98-107); Cholesterol 157 mg/dL (200); Creatinine, Serum 0.75 mg/dL (0.55-1.02); EST Glomerular Filtration Rate 101 mL/min (>60); Est Glom Filt Rate - Afr Amer 122 mL/min (>60); Globulin 4.1 g/dL (2.2-4.2); Glucose 85 mg/dL (74-106); High Density Lipoprotein 34 mg/dL; Iron 48 ug/dL (50-170); Iron Binding Capacity,Total 429 ug/dL (250-450); Potassium 3.8 mmol/L (3.5-5.1); Protein, Total 7.3 g/dL (6.4-8.2); Sodium Level 138 mmol/L (136-145); Thyroid Stim Hormone (TSH) 1.89 uIU/mL (0.358-3.74); Triglycerides 179 mg/dL; Very Low Density Lipoprotein 36 mg/dL (5-40)
== END ==
PROVIDERS: Referring Provider Nurse Practitioner Adult Health; Visit Provider Nurse Practitioner Adult Health
DX: E03.9 Hypothyroidism, unspecified (principal)
CPT/HCPCS: 36415; 80053; 80061; 82306; 82607; 83540; 83550; 84443; 85025

== ENCOUNTER → 2021-08-07 | Outpatient (CLI) | payer MEDICAID, SELFPAY | END | disposition home or self-care (01) | LOC: SL 21:29 | PROVIDERS: Visit Provider Nurse Practitioner Adult Health | DX: F51.11 Primary hypersomnia (principal); R53.83 Other fatigue | CPT/HCPCS: 95810 ==

== ENCOUNTER → 2021-08-09 | Outpatient (CLI) | payer MEDICAID, SELFPAY ==
[2021-08-09 14:19] LABS: Absolute Lymphocyte Count 3.19 X10^3/uL (0.83-4.51); Absolute Neutrophil Count 8.5 X10^3/uL (2.0-7.7); Basophil# 0.09 X10^3/uL; Basophil% 0.7 % (0-1); Eosinophil# 0.43 X10^3/uL; Eosinophils% 3.3 % (0-5); Hemoglobin 13.2 g/dL (12.0-15.0); Lymphocyte # 3.19 X10^3/ul (0.83-4.51); Lymphocyte % 24.6 % (19-41); Mean Corp Hgb Conc 32.2 g/dL (32-36); Mean Corpuscular Hgb 26.9 pg (27.0-32.0); Mean Corpuscular Volume 83.7 fL (81-99); Mean Platelet Vol. 9.5 fl (6.2-12.0); Monocyte% 5.4 % (0-10); NRBC Flagged by Analyzer 0 % (0-5); Neutrophil # 8.51 X10^3/uL (2.7-7.7); Neutrophil % 65.7 % (47-70); Platelet Count 412 K/mm3 (150-450); RBC Distribution Width SD 46.2 fl (35.1-43.9)
[2021-08-09 14:39] LABS: Iron 77 ug/dL (50-170); Iron Binding Capacity,Total 378 ug/dL (250-450); PERCENT IRON SATURATION 20.4 % (15.0-55.0)
== END | disposition home or self-care (01) ==
LOC: LAB 13:51
PROVIDERS: Referring Provider Nurse Practitioner Adult Health; Visit Provider Nurse Practitioner Adult Health
DX: D50.9 Iron deficiency anemia, unspecified (principal)
CPT/HCPCS: 36415; 83540; 83550; 85025

== ENCOUNTER → 2021-11-28 | Outpatient (CLI) | payer MEDICAID, SELFPAY ==
[2021-11-28 13:14] LABS: Hematocrit 38.2 % (37-47); Hemoglobin 12.4 g/dL (12.0-15.0); Mean Corp Hgb Conc 32.5 g/dL (32-36); Mean Corpuscular Hgb 27.7 pg (27.0-32.0); Mean Corpuscular Volume 85.5 fL (81-99); Mean Platelet Vol. 9.6 fl (6.2-12.0); Platelet Count 404 K/mm3 (150-450); RBC Distribution Width CV 14.4 % (11.6-14.6); RBC Distribution Width SD 45.1 fl (35.1-43.9); Red Blood Count 4.47 M/mm3 (4.2-5.4); White Blood Count 13.4 K/mm3 (4.4-11.0)
[2021-11-28 13:33] LABS: Hemoglobin A1c 5.4 % (3.8-5.6)
[2021-11-28 13:42] LABS: ALB/GLOB Ratio 0.8 RATIO (0.9-2.4); AST(SGOT) 13 U/L (15-37); Alanine Aminotransfer ALT/SGPT 21 U/L (13-56); Albumin, Serum 3.3 g/dL (3.2-5.0); Alkaline Phosphatase 88 U/L (45-117); Anion Gap 3 (5-15); BUN 9 mg/dL (7-18); BUN/Creat Ratio 12.9 RATIO (10-20); Calcium,Total 8.8 mg/dL (8.5-10.1); Chloride 104 mmol/L (98-107); Cholesterol 178 mg/dL (200); EST Glomerular Filtration Rate 108 mL/min (>60); Est Glom Filt Rate - Afr Amer 131 mL/min (>60); Glucose 98 mg/dL (74-106); High Density Lipoprotein 29 mg/dL; Potassium 3.9 mmol/L (3.5-5.1); Protein, Total 7.3 g/dL (6.4-8.2); Sodium Level 136 mmol/L (136-145); Triglycerides 169 mg/dL; Very Low Density Lipoprotein 34 mg/dL (5-40)
[2021-11-28 13:43] LABS: Vitamin D,25 Hydroxy 67.9 ng/mL
== END | disposition home or self-care (01) ==
LOC: LAB 12:53
PROVIDERS: Visit Provider Nurse Practitioner Adult Health
DX: Z13.220 Encounter for screening for lipoid disorders (principal); E03.9 Hypothyroidism, unspecified; E61.1 Iron deficiency; Z83.3 Family history of diabetes mellitus
CPT/HCPCS: 36415; 80053; 80061; 82306; 83036; 85027

== ENCOUNTER 2021-11-30 17:41 | Emergency (ER) | payer MEDICAID, SELFPAY ==
[2021-11-30 17:42] VITALS: BP 158/86; PULSE 107; RESP 16; TEMP 36.2; O2SAT 99; BMI 46.5
--- NOTE | 2021-11-30 18:02 | EX.ED.DYSGE1 ---
HPI History of Present Illness Chief Complaint: Other, Pain/Inj Detail of Chief Complaint: Neck abscess denied Informant: patient and parent Onset/Context/Timing Onset: Yesterday Context: Gradual Onset Timing: Intermittent Quality: Complained of pain and palpable mass anterior right side of the neck Location: Anterior right side of the neck Current Severity: Not palpable today Maximum Severity: Discomfort that was alleviated with ibuprofen Worsened by: Unknown Relieved by: Ibuprofen Associated Symptoms Associated Symptoms: No other symptoms or injury Narrative Narrative: Patient is a 26-year-old who had a tooth extracted approximately 2 to 3 months ago. He presents because she felt a palpable mass and was concern for abscess anterior right neck. She has a history of anterior right neck abscess. She states it happens 1-2 times a year. She denies dysphonia. She has difficulty swallowing. She denies difficulty opening closing her mouth. She denies change in voice. She denies fever, chills night sweats. She denies rash. She denies history of medic fever. She denies heart murmur. She does have history of type 2 diabetes and hypertension as well as hypothyroidism. Prior similar symptoms: Yes Recent Illness/Hospitalization: No PFSH PFSH Medical History Abnormal Pap smear of cervix Encounter for screening for COVID-19 PCOS (polycystic ovarian syndrome) Thyroid disease URI (upper respiratory infection) Home Medications cholecalciferol (vitamin D3) 1,250 mcg (50,000 unit) capsule 50,000 unit PO QWEEK 05/30/17 [History Last Taken Unknown] levothyroxine 75 mcg tablet 75 mcg PO DAILY 05/30/17 [History Last Taken Unknown] metformin 500 mg tablet 500 mg PO DAILY 05/30/17 [History Last Taken Unknown] spironolactone 50 mg tablet 50 mg PO QAM 05/30/17 [History Last Taken Unknown] norethindrone (contraceptive) 0.35 mg tablet (Jacquelin) 0.35 mg PO QDAY #84 tabs 12/14/20 [Rx Last Taken Unknown] Allergy/AdvReac Type Severity Reaction Status Date / Time clindamycin Allergy Rash Verified 11/30/21 17:42 Family History Grandfather Heart disease Mother Diabetes Grandmother Diabetes Surgical History History of tonsillectomy Social History current occupational status: employed current occupation: [employer] Smoking Status: Current every day smoker tobacco type: cigarettes alcohol intake: never substance use type: does not use caffeine: Yes what type of physical activity do you participate in: none seatbelt use: always do you feel safe at home: Yes additional social history: single ROS ROS ED Constitutional Constitutional ED: Denies chills, fever(s), subjective, sweats or weight loss Eyes Eyes: Denies blurry vision, change in vision or diplopia ENT ENT ED: Denies ear pain, rhinorrhea or sore throat Cardiovascular Cardiovascular: Denies chest pain or palpitations Respiratory/Chest Respiratory/Chest: Denies cough, dyspnea or dyspnea on exertion Gastrointestinal Gastrointestinal: Denies nausea or vomiting Musculoskeletal Musculoskeletal: Reports neck pain; Denies arthralgias, back pain or myalgias Integumentary Reports abscess; Denies rash Neurologic Neurologic: Denies headache(s), paresthesias or weakness Hematologic/Lymphatic Hematologic/Lymphatic: Reports systems reviewed and no addt'l complaints, except as documented EXAM Physical Exam Const Vital Signs: 11/30/21 17:42 Temperature 97.1 F L Temperature Source Temporal Pulse Rate 107 H Respiratory Rate 16 Blood Pressure 158/86 H Blood Pressure Mean 110 Pulse Ox 99 Oxygen Delivery Method Room Air Positive well nourished, well developed and obese General Appearance ED: well developed and NAD; Negative for cyanotic, diaphoretic or pallor Nutritional Appearance: obese HEENT Reports moist mucous membranes HEENT Narrative: Uvula is midline. There is no erythema exudate the posterior pharynx. There is no intra peritonsillar cellulitis or abscess. Patient has no dysphonia. Patient has numerous fillings noted. There is evidence of gingivitis. There is no trismus. Palpation of the floor of the mouth elicits no palpable mass or tenderness. Eyes PERRL and EOMs intact bilaterally General Eye ED: Negative for pale conjunctiva or scleral icterus Neck no lymphadenopathy, supple and no JVD Neck Narrative: Trachea is midline. There is no inspiratory expiratory stridor. There is no asymmetry. There is no rash. Resp normal respiratory effort and clear to auscultation bilaterally Cardio regular rate, regular rhythm, S1 normal heart sound, S2 normal heart sound and no murmurs Extremity normal to inspection Neuro oriented x3, CN's II-XII intact bilaterally and no sensory deficits noted Sensorium / Orientation: alert Motor Exam: strength 5/5 throughout Psych mental status grossly normal Skin no rashes or lesions noted, no wounds and skin turgor normal General Skin Exam: Negative for jaundice or pallor MDM MDM MDM Narrative Medical decision making narrative: Patient was informed that there is a small possible anterior cervical lymph node. The area of concern for patient is her hyoid bone. Since patient is afebrile. Has no dysphonia no stridor no objective findings she was discharged to home to follow-up with her primary care physician at [facility]. Discharge Plan Triage Chief Complaint: Other, Pain/Inj ED Provider: Alonso Leyva Dx/Rx/DC Orders Clinical Impression: Neck pain on right side Instructions: ED Pain, Acute, Uncertain Cause Prescriptions: No Action metformin 500 mg tablet 500 mg PO DAILY cholecalciferol (vitamin D3) 50,000 unit capsule 50,000 unit PO QWEEK spironolactone 50 mg tablet 50 mg PO QAM levothyroxine 75 mcg tablet 75 mcg PO DAILY norethindrone (contraceptive) [Jacquelin] 0.35 mg tablet 0.35 mg PO QDAY Qty: 84 4RF Rx Instructions: start day 1 of menstrual cycle Primary Care Provider: [facility] - 3-5 Days if not improving Activity Restrictions/Additional Instructions: If you have change in your voice, difficulty swallowing, difficulty breathing. Return to the emergency department immediately 2. If you develop a fever or tenderness/pain right side of your neck follow-up at [facility]. Disposition Disposition: Home, Self Care
[2021-11-30 18:30] VITALS: BP 134/78; PULSE 66; RESP 14; TEMP 37.1; O2SAT 100
== END 2021-11-30 18:31 | disposition home or self-care (01) ==
PROVIDERS: Emergency Provider Emergency Medicine; PCP Nurse Practitioner Adult Health; Visit Provider Emergency Medicine
DX: M54.2 Cervicalgia (principal); Z68.42 Body mass index [BMI] 45.0-49.9, adult; E11.9 Type 2 diabetes mellitus without complications; E03.9 Hypothyroidism, unspecified; E66.9 Obesity, unspecified; F17.210 Nicotine dependence, cigarettes, uncomplicated; Z79.84 Long term (current) use of oral hypoglycemic drugs; Z79.899 Other long term (current) drug therapy
CPT/HCPCS: 99282

== ENCOUNTER → 2021-12-12 | Outpatient (CLI) | payer MEDICAID, SELFPAY | END | disposition home or self-care (01) | LOC: SL 10:16 | PROVIDERS: PCP Nurse Practitioner Adult Health; Visit Provider Internal Medicine Critical Care Medicine | DX: G47.10 Hypersomnia, unspecified (principal) | CPT/HCPCS: 95801; 95806 ==

== ENCOUNTER 2021-12-29 14:04 | Emergency (ER) | payer MEDICAID, SELFPAY ==
[2021-12-29 14:05] VITALS: BP 147/96; PULSE 80; RESP 16; TEMP 36.7; O2SAT 98; BMI 43.8
[2021-12-29 15:18] LABS: Mucous, Urine 0 SEEN /hpf (<or=2+); Red Blood Cells-Urine 0 SEEN /hpf (0-5)
[2021-12-29 15:26] LABS: Absolute Lymphocyte Count 3.01 X10^3/uL (0.83-4.51); Absolute Neutrophil Count 9.8 X10^3/uL (2.0-7.7); Basophil# 0.07 X10^3/uL; Basophil% 0.5 % (0-1); Eosinophil# 0.21 X10^3/uL; Eosinophils% 1.5 % (0-5); Hematocrit 40.6 % (37-47); Hemoglobin 12.9 g/dL (12.0-15.0); Lymphocyte # 3.01 X10^3/ul (0.83-4.51); Lymphocyte % 21.8 % (19-41); Mean Corp Hgb Conc 31.8 g/dL (32-36); Mean Corpuscular Hgb 27.6 pg (27.0-32.0); Mean Corpuscular Volume 86.9 fL (81-99); Mean Platelet Vol. 10.2 fl (6.2-12.0); Monocyte# 0.64 X10^3/uL; Monocyte% 4.6 % (0-10); NRBC Flagged by Analyzer 0 % (0-5); Neutrophil % 71.2 % (47-70); Platelet Count 413 K/mm3 (150-450); RBC Distribution Width SD 44.3 fl (35.1-43.9); Red Blood Count 4.67 M/mm3 (4.2-5.4); White Blood Count 13.8 K/mm3 (4.4-11.0)
[2021-12-29 15:32] LABS: Color, Urine Yellow (Yellow); Glucose, Dipstick Normal (Normal); Ketone-Dipstick Negative (Negative); Leukocyte Esterase-Dipstick Negative /ul (Negative); Nitrite-Dipstick Negative (Negative); Occult Blood-Urine Negative /ul (Negative); Protein-Dipstick Negative (Negative); Specific Gravity, Urine 1.015 (1.002-1.030); Urine Bilirubin Dipstick Negative (Negative); Urine Clarity Sl. Cloudy (Clear); Urine Urobilinogen Normal (Normal)
--- NOTE | 2021-12-29 15:36 | EX.ED.DYSGE1 ---
HPI History of Present Illness Chief Complaint: Dizziness Informant: patient Narrative Narrative: Patient presents with just feeling foggy. She has nausea and diarrhea. She is having epigastric burning. She has not actually vomited. She saw her doctor 2 weeks ago for burning in her epigastrium and chest. She was placed on Pepcid. But she states it did not help a lot. But she only took it if she had symptoms and she is not taking it now. She has history of polycystic ovarian syndrome. She has been taking all of her other medicines. She denies these being new. Her symptoms get worse if she tries to eat because that makes her more nauseated. She does not have a headache. No fevers. No sore throat congestion cough. Her stool is been light espinosa to yellow and watery. She is urinating okay. [facility] Medical History Abnormal Pap smear of cervix Encounter for screening for COVID-19 PCOS (polycystic ovarian syndrome) Thyroid disease URI (upper respiratory infection) Home Medications cholecalciferol (vitamin D3) 1,250 mcg (50,000 unit) capsule 50,000 unit PO QWEEK 05/30/17 [History Last Taken Unknown] levothyroxine 75 mcg tablet 75 mcg PO DAILY 05/30/17 [History Last Taken Unknown] metformin 500 mg tablet 500 mg PO DAILY 05/30/17 [History Last Taken Unknown] spironolactone 50 mg tablet 50 mg PO QAM 05/30/17 [History Last Taken Unknown] norethindrone (contraceptive) 0.35 mg tablet (Jacquelin) 0.35 mg PO QDAY #84 tabs 12/14/20 [Rx Last Taken Unknown] esomeprazole magnesium 20 mg capsule,delayed release (Nexium) 20 mg PO DAILY #30 caps 12/29/21 [Rx Last Taken Unknown] ondansetron 4 mg disintegrating tablet 4 mg PO Q8H PRN nausea and vomiting #10 tabs 12/29/21 [Rx Last Taken Unknown] Allergy/AdvReac Type Severity Reaction Status Date / Time clindamycin Allergy Rash Verified 12/29/21 14:04 Family History Grandfather Heart disease Mother Diabetes Grandmother Diabetes Surgical History History of tonsillectomy Social History current occupational status: employed current occupation: [employer] Smoking Status: Current every day smoker tobacco type: cigarettes alcohol intake: never substance use type: does not use caffeine: Yes what type of physical activity do you participate in: none seatbelt use: always do you feel safe at home: Yes additional social history: single ROS ROS ED Constitutional Constitutional ED: Denies chills, fever(s) or subjective Eyes Eyes: Denies diplopia ENT ENT ED: Denies ear pain, rhinorrhea or sore throat Cardiovascular Cardiovascular: Denies chest pain or palpitations Respiratory/Chest Respiratory/Chest: Denies cough, dyspnea or sputum Gastrointestinal Gastrointestinal: Reports abdominal pain, diarrhea and nausea; Denies constipation, melena or vomiting Genitourinary Genitourinary ED: Denies dysuria or hematuria Musculoskeletal Musculoskeletal: Denies arthralgias, back pain or myalgias Integumentary Denies rash Neurologic Neurologic: Denies headache(s), paresthesias or weakness Endocrine Endocrinology: Denies polydipsia or polyuria Hematologic/Lymphatic Hematologic/Lymphatic: Denies easy bleeding or easy bruising Allergic/Immunologic Allergic/Immunologic ED: Denies urticaria EXAM Physical Exam Const Vital Signs: 12/29/21 14:05 12/29/21 15:24 Temperature 98.0 F Temperature Source Temporal Pulse Rate 80 Respiratory Rate 16 Respiratory Effort Normal Non-Labored Respiratory Pattern Normal Blood Pressure 147/96 H Blood Pressure Mean 113 Pulse Ox 98 Oxygen Delivery Method Room Air Positive well nourished and well developed General Appearance ED: well developed and NAD; Negative for pallor HEENT HEENT Narrative: Mildly dry mucous membranes. No sinus tenderness. Eyes PERRL and EOMs intact bilaterally General Eye ED: Negative for scleral icterus Neck no lymphadenopathy and no JVD Resp normal respiratory effort and clear to auscultation bilaterally Auscultation: Negative for rales, rhonchi or wheezes Cardio regular rate, regular rhythm and no murmurs GI normal to inspection, nondistended, normoactive bowel sounds and non-tender GI Narrative: Abdomen is soft. She feels some mild discomfort with palpation of the epigastrium but no objective tenderness. Certainly no rebound or guarding. No right upper quadrant tenderness. No complaints at all or tenderness in the lower abdomen. I see no rashes. I note no hernia. Back/Spine no CVA tenderness Extremity normal to inspection General Extremety ED: Negative for tenderness Neuro Sensorium / Orientation: alert Psych mental status grossly normal Skin no rashes or lesions noted General Skin Exam: Negative for jaundice or pallor MDM MDM MDM Narrative Medical decision making narrative: Patient CBC shows mild elevation of her white count but this is chronic for her. Electrolytes are unremarkable. Urinalysis is not a clean-catch but no other abnormalities. Liver function test are negative. Patient is feeling better with meds. I think her symptoms are likely due to a viral illness. She states she already had COVID-negative. She has a foggy feeling, nausea vomiting diarrhea and tiredness. We will get her started on next as she has a background history of GERD and is not taking anything. I will also give her prescription for Zofran. We discussed reasons to return. She should be rechecked by her physician in a few days Lab Data Attestation: I reviewed the patient's lab results. Labs: Laboratory Results - last 24 hr 12/29/21 12/29/21 12/29/21 15:12 15:20 15:20 WBC 13.8 H RBC 4.67 Hgb 12.9 Hct 40.6 MCV 86.9 MCH 27.6 MCHC 31.8 L RDW Std Deviation 44.3 H RDW Coeff of Julienne 14.0 Plt Count 413 MPV 10.2 Immature Gran % (Auto) 0.400 Neut % (Auto) 71.2 H Lymph % (Auto) 21.8 Keith % (Auto) 4.6 Eos % (Auto) 1.5 Baso % (Auto) 0.5 Absolute Neuts (auto) 9.8 H Absolute Lymphs (auto) 3.01 Nucleated RBC % 0 Sodium 138 Potassium 4.1 Chloride 106 Carbon Dioxide 24.0 Anion Gap 8 BUN 11 Creatinine 0.77 Estim Creat Clear Calc 108.61 Est GFR (MDRD) Af Amer 117 Est GFR (MDRD) Non-Af 97 BUN/Creatinine Ratio 14.3 Glucose 89 Calcium 9.7 Total Bilirubin Direct Bilirubin AST ALT Alkaline Phosphatase Total Protein Albumin Globulin Lipase Serum , Qual Urine Color Yellow Urine Clarity Sl. Cloudy Urine pH 7.0 Ur Specific Corinne 1.015 Urine Protein Negative Urine Glucose (UA) Normal Urine Ketones Negative Urine Occult Blood Negative Urine Nitrite Negative Urine Bilirubin Negative Urine Urobilinogen Normal Ur Leukocyte Esterase Negative Urine RBC 0 SEEN Urine WBC 0-5 SEEN Ur Squamous Epith Cells 10-25 SEEN Urine Bacteria 2+ Urine Mucus 0 SEEN 12/29/21 12/29/21 15:20 15:20 WBC RBC Hgb Hct MCV MCH MCHC RDW Std Deviation RDW Coeff of Julienne Plt Count MPV Immature Gran % (Auto) Neut % (Auto) Lymph % (Auto) Keith % (Auto) Eos % (Auto) Baso % (Auto) Absolute Neuts (auto) Absolute Lymphs (auto) Nucleated RBC % Sodium Potassium Chloride Carbon Dioxide Anion Gap BUN Creatinine Estim Creat Clear Calc Est GFR (MDRD) Af Amer Est GFR (MDRD) Non-Af BUN/Creatinine Ratio Glucose Calcium Total Bilirubin 0.40 Direct Bilirubin < 0.05 AST 30 ALT 19 Alkaline Phosphatase 86 Total Protein 6.9 Albumin 3.4 Globulin 3.5 Lipase 118 Serum , Qual NEGATIVE Urine Color Urine Clarity Urine pH Ur Specific Corinne Urine Protein Urine Glucose (UA) Urine Ketones Urine Occult Blood Urine Nitrite Urine Bilirubin Urine Urobilinogen Ur Leukocyte Esterase Urine RBC Urine WBC Ur Squamous Epith Cells Urine Bacteria Urine Mucus Discharge Plan Triage Chief Complaint: Dizziness ED Provider: Amilcar Ayala Dx/Rx/DC Orders Clinical Impression: Nausea vomiting and diarrhea Instructions: ED Vomiting and Diarrhea ... Prescriptions: New ondansetron 4 mg tablet,disintegrating 4 mg PO Q8H PRN (Reason: nausea and vomiting) Qty: 10 0RF esomeprazole magnesium [Nexium] 20 mg capsule,delayed release(DR/EC) 20 mg PO DAILY Qty: 30 0RF No Action metformin 500 mg tablet 500 mg PO DAILY cholecalciferol (vitamin D3) 50,000 unit capsule 50,000 unit PO QWEEK spironolactone 50 mg tablet 50 mg PO QAM levothyroxine 75 mcg tablet 75 mcg PO DAILY norethindrone (contraceptive) [Jacquelin] 0.35 mg tablet 0.35 mg PO QDAY Qty: 84 4RF Rx Instructions: start day 1 of menstrual cycle Primary Care Provider: Raya Serrano Referrals: Raya Serrano, [employer] [Primary Care Provider] - 3-5 Days if not improving Disposition Disposition: Home, Self Care
[2021-12-29 15:39] LABS: Anion Gap 8 (5-15); BUN 11 mg/dL (7-18); BUN/Creat Ratio 14.3 RATIO (10-20); Calcium,Total 9.7 mg/dL (8.5-10.1); Chloride 106 mmol/L (98-107); Creatinine, Serum 0.77 mg/dL (0.55-1.02); EST Glomerular Filtration Rate 97 mL/min (>60); Est Glom Filt Rate - Afr Amer 117 mL/min (>60); Estimated Creatinine Clearance 108.61 ml/min; Glucose 89 mg/dL (74-106); Potassium 4.1 mmol/L (3.5-5.1); Sodium Level 138 mmol/L (136-145)
[2021-12-29 15:42] LABS: Internal QC Validated? YES +Cl - CLEAR BKGD; Pregnancy, Serum, hCG Quali. NEGATIVE Negative
[2021-12-29] MEDS: Ondansetron 4 MG/2 ML Vial IV (15:43)
[2021-12-29] MEDS: 0.9% Normal Saline 1,000 ML 999 ML IV (15:43)
[2021-12-29 16:01] LABS: Bacteria 2+ /hpf (None Seen); Squamous Epithelial Cells - UA 10-25 SEEN /hpf (5-10); White Blood Cells 0-5 SEEN /hpf (0-5)
[2021-12-29 16:13] LABS: AST(SGOT) 30 U/L (15-37); Alanine Aminotransfer ALT/SGPT 19 U/L (13-56); Albumin, Serum 3.4 g/dL (3.2-5.0); Alkaline Phosphatase 86 U/L (45-117); Bilirubin, Direct < 0.05 mg/dL (0.00-0.30); Globulin 3.5 g/dL (2.2-4.2); Lipase 118 U/L (73-393); Protein, Total 6.9 g/dL (6.4-8.2)
[2021-12-29 17:21] VITALS: BP 168/72; RESP 16; O2SAT 98
== END 2021-12-29 17:21 | disposition home or self-care (01) ==
PROVIDERS: Emergency Provider Emergency Medicine; PCP Nurse Practitioner Adult Health; Visit Provider Emergency Medicine
DX: R11.2 Nausea with vomiting, unspecified (principal); R19.7 Diarrhea, unspecified
CPT/HCPCS: 80048; 80076; 81001; 83690; 84703; 85025; 96361; 96374; 99283; J7030; A4216; J2405

== ENCOUNTER → 2022-05-30 | Outpatient (CLI) | payer MEDICAID, SELFPAY ==
[2022-05-30 17:27] LABS: T4 Free Direct 1.25 ng/dL (0.76-1.46); Thyroid Stim Hormone (TSH) 2.47 uIU/mL (0.358-3.74)
== END | disposition home or self-care (01) ==
LOC: LAB 16:32
PROVIDERS: Visit Provider Nurse Practitioner Family
DX: E03.9 Hypothyroidism, unspecified (principal)
CPT/HCPCS: 36415; 84439; 84443

== ENCOUNTER 2023-07-24 22:25 | Emergency (ER) | payer MEDICAID, SELFPAY ==
[2023-07-24 22:26] VITALS: BP 160/99; PULSE 139; RESP 18; TEMP 36.4; O2SAT 100; BMI 44.1
--- NOTE | 2023-07-24 23:06 | RAD_ITS ---
EXAM: XR CHEST, 2 VIEWS CLINICAL INDICATION: cough TECHNIQUE: Frontal and lateral views of the chest. COMPARISON: 03/06/2016 FINDINGS: LUNGS AND PLEURAL SPACES: Subtle bibasilar pulmonary opacities, left greater than right may be atelectasis or pneumonia. No pneumothorax. No effusion. HEART: No significant abnormality. Cardiac silhouette not enlarged. MEDIASTINUM: Central airways and mediastinal contour are unremarkable. BONES/JOINTS: No significant abnormality. No acute fracture. SOFT TISSUES: No significant abnormality. RAD/Chest PA and Lateral IMPRESSION: Subtle bibasilar pulmonary opacities, left greater than right may be atelectasis or pneumonia. Electronically Signed: Aleksey Stiles DO at 23:22 EDT ,
[2023-07-24 23:45] VITALS: BP 141/88; BP 144/88; PULSE 104; RESP 16; TEMP 36.6; O2SAT 98
--- NOTE | 2023-07-24 23:45 | EDS_ITS ---
HPI History of Present Illness Chief Complaint: Palpitations Informant: patient and parent Narrative Narrative: Patient is a 28-year-old female with past medical history of hypothyroidism tobacco abuse and morbid obesity. She states she has had cough and wheeze for multiple days and went to an urgent care where she was diagnosed with bronchitis. He was placed on a cough suppressant as well as albuterol inhaler and prednisone. She states since using the albuterol and prednisone she folic her heart has been racing and she feels increased anxiety and secondary to this comes in for evaluation [facility] Medical History (Updated 07/25/23 @ 00:[address] Sam Esquivel, DO) Abnormal Pap smear of cervix Anxiety Depression Elevated blood pressure reading Hypothyroidism PCOS (polycystic ovarian syndrome) Smoker Thyroid disease Home Medications cholecalciferol (vitamin D3) 1,250 mcg (50,000 unit) capsule 50,000 unit PO QWEEK 05/30/17 [History Last Taken Unknown] levothyroxine 75 mcg tablet 75 mcg PO DAILY 05/30/17 [History Last Taken Unknown] metformin 500 mg tablet 500 mg PO DAILY 05/30/17 [History Last Taken Unknown] spironolactone 50 mg tablet 50 mg PO QAM 05/30/17 [History Last Taken Unknown] esomeprazole magnesium 20 mg capsule,delayed release (Nexium) 20 mg PO DAILY #30 caps 12/29/21 [Rx Last Taken Unknown] ondansetron 4 mg disintegrating tablet 4 mg PO Q8H PRN nausea and vomiting #10 tabs 12/29/21 [Rx Last Taken Unknown] norethindrone (contraceptive) 0.35 mg tablet (Jacquelin) 0.35 mg PO QDAY #84 tabs 02/24/23 [Rx Last Taken Unknown] doxycycline hyclate 100 mg capsule 100 mg PO BID 10 days #20 caps 07/24/23 [Rx Last Taken Unknown] Allergy/AdvReac Type Severity Reaction Status Date / Time clindamycin Allergy Rash Verified 07/24/23 22:28 Family History Grandfather Heart disease Mother Diabetes Grandmother Diabetes Surgical History History of tonsillectomy Social History current occupational status: employed current occupation: [employer] Smoking Status: Current every day smoker tobacco type: cigarettes alcohol intake: never substance use type: does not use caffeine: Yes what type of physical activity do you participate in: none frequency: 3-4 times per week seatbelt use: always do you feel safe at home: Yes additional social history: single ROS ROS ED Constitutional Constitutional ED: Denies chills or fever(s) ENT ENT ED: Reports rhinorrhea and sore throat Cardiovascular Cardiovascular: Denies chest pain Respiratory/Chest Respiratory/Chest: Reports cough; Denies dyspnea Gastrointestinal Gastrointestinal: Denies abdominal pain, diarrhea, nausea or vomiting Genitourinary Genitourinary ED: Denies dysuria Musculoskeletal Musculoskeletal: Denies myalgias Integumentary Denies rash Neurologic Neurologic: Denies headache(s) Psychiatric Psychiatric: Reports anxiety Hematologic/Lymphatic Hematologic/Lymphatic: Denies easy bleeding or easy bruising EXAM Physical Exam Const Vital Signs: 07/24/23 22:26 07/24/23 22:40 07/24/23 22:55 Temperature 97.6 F L Temperature Source Temporal Pulse Rate 139 H Respiratory Rate 18 Respiratory Effort Normal Respiratory Pattern Normal Blood Pressure 160/99 H Blood Pressure Mean 119 Pulse Ox 100 Oxygen Delivery Method Room Air 07/24/23 23:45 07/24/23 23:45 Temperature 97.9 F 97.9 F Temperature Source Oral Pulse Rate 104 H 104 H Respiratory Rate 16 16 Respiratory Effort Respiratory Pattern Blood Pressure 144/88 H 141/88 H Blood Pressure Mean 106 105 Pulse Ox 98 98 Oxygen Delivery Method Room Air Positive well nourished, well developed and obese General Appearance ED: well developed; Negative for pallor Nutritional Appearance: obese HEENT HEENT Narrative: Cobblestoning is noted in the posterior pharynx consistent with sinus drainage No airway edema or compromise. No tongue or lip swelling or oral lesions No secondary findings in the posterior pharynx to suggest infection Eyes PERRL and EOMs intact bilaterally General Eye ED: Negative for scleral icterus Neck supple and no JVD Resp normal respiratory effort Resp Narrative: Breath sounds are diminished throughout with diffuse expiratory wheeze but otherwise no nasal flaring retractions tachypnea or accessory muscle use Cardio regular rhythm Rate: tachycardic and other Other Details: Tachycardic rate with regular rhythm No murmurs rubs or gallops Radial and carotid pulses are equal and symmetric Extremity normal to inspection Extremity Narrative: No asymmetric edema no pitting edema negative Homans' sign bilaterally Neuro oriented x3, CN's II-XII intact bilaterally and no sensory deficits noted Sensorium / Orientation: alert Motor Exam: strength 5/5 throughout Psych Psych Narrative: Patient has a nervous/anxious affect Skin no rashes or lesions noted and no wounds General Skin Exam: Negative for jaundice or pallor MDM MDM MDM Narrative Medical decision making narrative: Patient presented to the ER hypertensive and tachycardic. She has history of anxiety and has been using albuterol as well as taking prednisone. She is in no respiratory distress but with the symptoms and vitals there is concern for cardiac dysrhythmia versus adverse medication reaction versus pneumonia. There is also concern for potential DVT/PE the patient denies any recent surgery travel or history of this and she does not have chest pain with inspiration. 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 With concern for pneumonia chest x-ray was obtained which shows subtle bibasilar opacities concerning for developing infection. At this time the patient is not hypoxic or in respiratory distress or showing physical exam changes suggesting sepsis so there is no need for laboratory evaluation. Patient will be placed on antibiotics secondary to this x-ray read. Without any type of medication given the patient's heart rate reduced to essentially normal at 104. This indicates that her tachycardia is most likely anxiety driven. Therefore at this time with no signs of respiratory distress and spontaneous improvement of symptoms I do not feel there is need for further workup and he is otherwise safe for discharge Radiography Diagnostic Testing: Clinical Impression(s) from Imaging Studies Chest X-Ray 07/24/23 23:06 IMPRESSION: Subtle bibasilar pulmonary opacities, left greater than right may be atelectasis or pneumonia. Electronically Signed: Aleksey Stiles DO at 23:22 EDT , 2 view chest x-ray as interpreted by the emergency medicine physician reveals subtle bibasilar haziness concerning for atelectasis versus developing pneumonia Discharge Plan Triage Chief Complaint: Palpitations ED Provider: Sam Esquivel Dx/Rx/DC Orders Clinical Impression: Tobacco use, Pneumonia, Anxiety, Obesity Instructions: ED Pneumonia (Adult) Prescriptions: New doxycycline hyclate 100 mg capsule 100 mg PO BID 10 Days Qty: 20 0RF No Action metformin 500 mg tablet 500 mg PO DAILY cholecalciferol (vitamin D3) 50,000 unit capsule 50,000 unit PO QWEEK spironolactone 50 mg tablet 50 mg PO QAM levothyroxine 75 mcg tablet 75 mcg PO DAILY norethindrone (contraceptive) [Jacquelin] 0.35 mg tablet 0.35 mg PO QDAY Qty: 84 4RF ondansetron 4 mg tablet,disintegrating 4 mg PO Q8H PRN (Reason: nausea and vomiting) Qty: 10 0RF esomeprazole magnesium [Nexium] 20 mg capsule,delayed release(DR/EC) 20 mg PO DAILY Qty: 30 0RF Primary Care [facility] - Activity Restrictions/Additional Instructions: The radiologist felt you are developing pneumonia in your lower lung field and secondary to this take the doxycycline/antibiotic as directed. Continue all the other medications prescribed by the urgent care but please stop using the prednisone as I feel your anxiety and palpitations are related to this. Return to ER should you have any further concerns Disposition Disposition: Home, Self Care Discharge Date/Time: 07/24/23 23:54
[2023-07-24] MEDS: Doxycycline 100 MG CAPSULE PO (23:52)
== END 2023-07-24 23:54 | disposition home or self-care (01) ==
PROVIDERS: Emergency Provider Emergency Medicine; Visit Provider Emergency Medicine
DX: R00.2 Palpitations (principal); E66.01 Morbid (severe) obesity due to excess calories; Z68.41 Body mass index [BMI] 40.0-44.9, adult; F41.8 Other specified anxiety disorders; J18.9 Pneumonia, unspecified organism; F17.210 Nicotine dependence, cigarettes, uncomplicated
CPT/HCPCS: 71046; 99283

== ENCOUNTER 2023-11-22 19:06 | Emergency (ER) | payer MEDICAID, SELFPAY ==
[2023-11-22 19:07] VITALS: BP 155/84; PULSE 75; RESP 18; TEMP 35.1; O2SAT 99; BMI 42.3
--- NOTE | 2023-11-22 20:10 | RAD_ITS ---
INDICATION: COUGH EXAMINATION/TECHNIQUE: X-RAY - XR Chest 1 View COMPARISON: Prior study dated: 07/24/2023 FINDINGS: LINES/DEVICES: None. LUNGS: The lungs are well expanded. No consolidation, edema or effusion. No pneumothorax. MEDIASTINUM AND CARDIOVASCULAR STRUCTURES: Cardiac silhouette not enlarged. Central airways and mediastinal contour are unremarkable. BONES AND SOFT TISSUES: No acute abnormality. RAD/Chest 1 View (Portable) IMPRESSION: No acute pulmonary finding. Electronically Signed: Dre Starkey MD at 22:02 EDT ,
[2023-11-22] MEDS: dexAMETHasone 10 MG/ML Vial PO.IVFORM (20:17)
--- NOTE | 2023-11-22 21:54 | EDS_ITS ---
HPI History of Present Illness Chief Complaint: Cold Sx Informant: patient and parent Narrative Narrative: Patient is a 28-year-old female with history of hypothyroidism and morbid obesity. She states she recently tested positive for COVID-19. She states last night she was lying down and trying to sleep and had difficulty breathing as she felt congested and also noted that her heart rate seem to be dropping low. This concerned her and she could not fall back asleep secondary to this. With concern that her COVID could be worsening her that she may need admitted secondary to that she presents for evaluation [facility] Medical History (Updated 11/26/23 @ 01:[address] Sam Esquivel, DO) Anxiety Depression Hypothyroidism Smoker Elevated blood pressure reading Abnormal Pap smear of cervix PCOS (polycystic ovarian syndrome) Thyroid disease Home Medications ?Medication ?Instructions ?Recorded ?Last Taken ?Type cholecalciferol (vitamin D3) 1,250 50,000 unit PO QWEEK 05/30/17 Unknown History mcg (50,000 unit) capsule levothyroxine 75 mcg tablet 75 mcg PO DAILY 05/30/17 Unknown History metformin 500 mg tablet 500 mg PO DAILY 05/30/17 Unknown History spironolactone 50 mg tablet 50 mg PO QAM 05/30/17 Unknown History esomeprazole magnesium 20 mg 20 mg PO DAILY #30 caps 12/29/21 Unknown Rx capsule,delayed release (Nexium) ondansetron 4 mg disintegrating 4 mg PO Q8H PRN nausea and 12/29/21 Unknown Rx tablet vomiting #10 tabs norethindrone (contraceptive) 0.35 0.35 mg PO QDAY #84 tabs 02/24/23 Unknown Rx mg tablet (Jacquelin) doxycycline hyclate 100 mg capsule 100 mg PO BID 10 days #20 caps 07/24/23 Unknown Rx azelastine 137 mcg (0.1 %) nasal 2 spray intranasal BID #30 mL 11/22/23 Unknown Rx spray dexamethasone 6 mg tablet 6 mg PO DAILY 10 days #10 tabs 11/22/23 Unknown Rx Allergy/AdvReac Type Severity Reaction Status Date / Time clindamycin Allergy Rash Verified 11/22/23 19:07 Family History Grandfather Heart disease Mother Diabetes Grandmother Diabetes Surgical History History of tonsillectomy Social History current occupational status: employed current occupation: [employer] Smoking Status: Current every day smoker tobacco type: cigarettes alcohol intake: never substance use type: does not use caffeine: Yes what type of physical activity do you participate in: none frequency: 3-4 times per week seatbelt use: always do you feel safe at home: Yes additional social history: single ROS ROS ED Constitutional Constitutional ED: Reports chills, fever(s) and subjective ENT ENT ED: Reports rhinorrhea and sore throat Cardiovascular Cardiovascular: Denies chest pain or racing heartbeat Respiratory/Chest Respiratory/Chest: Reports cough and dyspnea Gastrointestinal Gastrointestinal: Denies abdominal pain, diarrhea, nausea or vomiting Genitourinary Genitourinary ED: Denies dysuria Musculoskeletal Musculoskeletal: Reports myalgias Integumentary Denies rash Neurologic Neurologic: Denies headache(s) Hematologic/Lymphatic Hematologic/Lymphatic: Denies easy bleeding or easy bruising Allergic/Immunologic Allergic/Immunologic ED: Denies mouth swelling or tongue swelling EXAM Physical Exam Const Vital Signs: 11/22/23 19:07 11/22/23 19:39 Temperature 95.1 F L Temperature Source Temporal Pulse Rate 75 Respiratory Rate 18 Respiratory Effort Normal Non-Labored Respiratory Pattern Normal Blood Pressure 155/84 H Blood Pressure Mean 107 Pulse Ox 99 Positive well nourished, well developed and obese General Appearance ED: well developed; Negative for pallor Nutritional Appearance: obese HEENT HEENT Narrative: No tongue or lip swelling no oral lesions no airway edema or compromise There is cobblestoning noted in the posterior pharynx consistent with sinus drainage No secondary findings to suggest infection Eyes PERRL and EOMs intact bilaterally General Eye ED: Negative for pale conjunctiva or scleral icterus Neck supple and no JVD Chest Wall palpation of chest normal Chest Narrative: No bony deformity or crepitance noted Resp normal respiratory effort Resp Narrative: Breath sounds are diminished throughout with faint expiratory wheeze in the bilateral lower lobes No orthopnea noted No nasal flaring retractions or accessory muscle use Cardio regular rate and regular rhythm GI normal to inspection, nondistended, normoactive bowel sounds, non-tender, non- distended and no masses Auscultation: normoactive bowel sounds Palpation: soft Extremity normal to inspection Extremity Narrative: No asymmetric edema no pitting edema negative Homans' sign bilaterally Neuro oriented x3, CN's II-XII intact bilaterally and no sensory deficits noted Sensorium / Orientation: alert Motor Exam: strength 5/5 throughout Psych Psych Narrative: Patient has a nervous/anxious affect Skin no rashes or lesions noted General Skin Exam: Negative for jaundice or pallor MDM MDM MDM Narrative Medical decision making narrative: Patient arrived to the ER hypertensive but otherwise with stable vitals. She reported difficulty sleeping when lying down secondary to congestion and sensation that her heart rate was dropping low. Differential diagnosis is pneumonia versus cardiac dysrhythmia versus pleural effusion or pneumothorax. Chest x-ray was obtained which revealed no acute lung pathology. The patient did not have any orthopnea on physical exam and when she was laid flat her heart rate went from 70-65 going against the bradycardia she noted at home. Therefore at this time patient does not have a cardiac dysrhythmia there is no acute lung pathology she is not hypoxic or requiring supplemental oxygen and therefore she can be discharged home as her COVID-19 is not leading to signs of distress History & Record Review Discussion w/independent historian: Patient and Family Radiography Diagnostic Testing: Clinical Impression(s) from Imaging Studies Chest X-Ray 11/22/23 20:10 IMPRESSION: No acute pulmonary finding. Electronically Signed: Dre Starkey MD at 22:02 EDT Reading Location ID and State: [address] [place] [id number] Tel , Service support , Chest x-ray as interpreted by the emergency medicine physician reveals no acute infiltrate pneumothorax or pleural effusion Discharge Plan Triage Chief Complaint: Cold Sx ED Provider: Sam Esquivel Dx/Rx/DC Orders Clinical Impression: COVID-19, Obesity, Hypothyroidism Instructions: Coronavirus Disease 2019 (COVID-19): Caring for Yourself or Others Prescriptions: New azelastine 137 mcg (0.1 %) spray,non-aerosol 2 spray intranasal BID Qty: 30 0RF Rx Instructions: administer into each nostril dexamethasone 6 mg tablet 6 mg PO DAILY 10 Days Qty: 10 0RF No Action metformin 500 mg tablet 500 mg PO DAILY cholecalciferol (vitamin D3) 50,000 unit capsule 50,000 unit PO QWEEK spironolactone 50 mg tablet 50 mg PO QAM levothyroxine 75 mcg tablet 75 mcg PO DAILY norethindrone (contraceptive) [Jacquelin] 0.35 mg tablet 0.35 mg PO QDAY Qty: 84 4RF ondansetron 4 mg tablet,disintegrating 4 mg PO Q8H PRN (Reason: nausea and vomiting) Qty: 10 0RF esomeprazole magnesium [Nexium] 20 mg capsule,delayed release(DR/EC) 20 mg PO DAILY Qty: 30 0RF doxycycline hyclate 100 mg capsule 100 mg PO BID 10 Days Qty: 20 0RF Primary Care Provider: [facility] Lurdes Montiel Referrals: [facility] Dinesh,Lurdes Goff [Primary Care Provider] - Print Language: Estonian Disposition Disposition: Home, Self Care Discharge Date/Time: 11/22/23 22:03
[2023-11-22 21:58] VITALS: BP 160/90; PULSE 69; RESP 18; TEMP 36.7; O2SAT 99
== END 2023-11-22 22:03 | disposition home or self-care (01) ==
PROVIDERS: Emergency Provider Emergency Medicine; Visit Provider Emergency Medicine
DX: U07.1 COVID-19 (principal); E03.9 Hypothyroidism, unspecified; E66.9 Obesity, unspecified; F17.210 Nicotine dependence, cigarettes, uncomplicated; Z79.84 Long term (current) use of oral hypoglycemic drugs; Z79.890 Hormone replacement therapy; Z79.899 Other long term (current) drug therapy
CPT/HCPCS: 71045; 99282

== ENCOUNTER → 2023-12-10 | Outpatient (CLI) | payer MEDICAID, SELFPAY ==
[2023-12-10 12:41] LABS: Absolute Lymphocyte Count 3.27 X10^3/uL (0.83-4.51); Absolute Neutrophil Count 7.7 X10^3/uL (2.0-7.7); Basophil# 0.08 X10^3/uL; Basophil% 0.7 % (0-1); Eosinophil# 0.44 X10^3/uL; Eosinophils% 3.6 % (0-5); Hematocrit 36.9 % (37-47); Hemoglobin 11.8 g/dL (12.0-15.0); Lymphocyte # 3.27 X10^3/ul (0.83-4.51); Lymphocyte % 26.7 % (19-41); Mean Corpuscular Hgb 27.6 pg (27.0-32.0); Mean Corpuscular Volume 86.2 fL (81-99); Monocyte# 0.73 X10^3/uL; NRBC Flagged by Analyzer 0 % (0-5); Neutrophil % 62.8 % (47-70); Platelet Count 410 K/mm3 (150-450); RBC Distribution Width CV 14.3 % (11.6-14.6); RBC Distribution Width SD 45.2 fl (35.1-43.9); Red Blood Count 4.28 M/mm3 (4.2-5.4); White Blood Count 12.2 K/mm3 (4.4-11.0)
[2023-12-10 12:56] LABS: Vitamin D,25 Hydroxy 55.5 ng/mL
[2023-12-10 13:02] LABS: Cholesterol 162 mg/dL (200); High Density Lipoprotein 30 mg/dL; Iron 32 ug/dL (50-170); Iron Binding Capacity,Total 321 ug/dL (250-450); T4 Free Direct 1.26 ng/dL (0.76-1.46); Triglycerides 126 mg/dL; Very Low Density Lipoprotein 25 mg/dL (5-40)
[2023-12-10 13:07] LABS: Hemoglobin A1c 5.3 % (3.8-5.6)
== END | disposition home or self-care (01) ==
LOC: VSLAB 10:52
PROVIDERS: PCP Nurse Practitioner Family; Visit Provider Nurse Practitioner Family
DX: E03.9 Hypothyroidism, unspecified (principal); E61.1 Iron deficiency; R73.03 Prediabetes; E55.9 Vitamin D deficiency, unspecified; E88.9 Metabolic disorder, unspecified
CPT/HCPCS: 36415; 80061; 82306; 83036; 83540; 83550; 84439; 84443; 85025

== ENCOUNTER 2023-12-22 13:15 | Emergency (ER) | payer MEDICAID, SELFPAY ==
[2023-12-22 13:15] VITALS: BP 93/75; PULSE 96; RESP 18; TEMP 36.1; O2SAT 100; BMI 41.6
--- NOTE | 2023-12-22 13:37 | CT_ITS ---
STUDY: CT ABDOMEN AND PELVIS WITH CONTRAST REASON FOR EXAM: Female, 28 years old. epigastric pain, dark stools RADIATION DOSAGE (If Supplied By Facility): CTDIvol = ( 15.41 ) mGy, DLP = ( 1341.35 ) mGycm TECHNIQUE: Transaxial images were obtained from the dome of the diaphragm to the symphysis pubis without oral contrast. IV 100mL Isovue-370 was administered. Sagittal and coronal images were reconstructed. Individualized dose optimization techniques were used for this CT. The protocol utilizes one or more of the following dose reduction techniques: automated exposure control, adjustment of mA and/or kV according to patient size,and/or use of iterative reconstruction technique. COMPARISON: October 07, 2018 CT abdomen and pelvis FINDINGS: The visualized lung bases are unremarkable. The visualized portions of the heart are within normal limits. Normal liver. Normal gallbladder and extrahepatic biliary system. Normal spleen. Normal pancreas. Normal bilateral adrenal glands. Normal right kidney. Normal left kidney. Normal visualized stomach. Normal small intestine. Colonic diverticulosis. Residual oral contrast noted in the colon. The appendix is visualized and appears normal. Normal abdominal aorta. Normal inferior vena cava. Normal retroperitoneum. Normal urinary bladder. Possible hydrosalpinx on the right measuring 2.5 x 5.9 cm. Recommend pelvic ultrasound Normal abdominal wall. Normal osseous structures. CT/Abdomen/Pelvis W IV Cont ONLY IMPRESSION: Possible hydrosalpinx on the right. Otherwise no acute disease. Recommend pelvic ultrasound. Electronically Signed: Mau Spears MD at 16:43 EDT ,
[2023-12-22] MEDS: 0.9% Normal Saline (1000mL) 1,000 ML 999 ML IV (13:47)
[2023-12-22] MEDS: Pantoprazole Sodium 40 MG in 0.9% Normal Saline (100mL MB+) 100 ML 330 MG IV (14:00)
[2023-12-22 14:03] LABS: Absolute Lymphocyte Count 2.69 X10^3/uL (0.83-4.51); Absolute Neutrophil Count 7.7 X10^3/uL (2.0-7.7); Basophil# 0.08 X10^3/uL; Basophil% 0.7 % (0-1); Eosinophil# 0.24 X10^3/uL; Eosinophils% 2.1 % (0-5); Hematocrit 38.2 % (37-47); Hemoglobin 12.3 g/dL (12.0-15.0); Lymphocyte # 2.69 X10^3/ul (0.83-4.51); Lymphocyte % 23.8 % (19-41); Mean Corp Hgb Conc 32.2 g/dL (32-36); Mean Corpuscular Hgb 27.3 pg (27.0-32.0); Mean Corpuscular Volume 84.9 fL (81-99); Mean Platelet Vol. 10.1 fl (6.2-12.0); Monocyte# 0.55 X10^3/uL; Monocyte% 4.9 % (0-10); NRBC Flagged by Analyzer 0 % (0-5); Neutrophil # 7.68 X10^3/uL (2.7-7.7); Neutrophil % 68.1 % (47-70); Platelet Count 425 K/mm3 (150-450); RBC Distribution Width CV 14.2 % (11.6-14.6); RBC Distribution Width SD 43.6 fl (35.1-43.9); White Blood Count 11.3 K/mm3 (4.4-11.0)
[2023-12-22 14:10] LABS: AST(SGOT) 12 U/L (15-37); Alanine Aminotransfer ALT/SGPT 17 U/L (13-56); Albumin, Serum 3.6 g/dL (3.2-5.0); Alkaline Phosphatase 95 U/L (45-117); Anion Gap 7 (5-15); BUN 10 mg/dL (7-18); BUN/Creat Ratio 12.7 RATIO (10-20); Calcium,Total 9.6 mg/dL (8.5-10.1); Chloride 109 mmol/L (98-107); Creatinine, Serum 0.79 mg/dL (0.55-1.02); EST Glomerular Filtration Rate 92 mL/min (>60); Est Glom Filt Rate - Afr Amer 112 mL/min (>60); Estimated Creatinine Clearance 143.87 ml/min; Globulin 3.7 g/dL (2.2-4.2); Glucose 95 mg/dL (74-106); Lipase 27 U/L (13-75); Potassium 3.6 mmol/L (3.5-5.1); Protein, Total 7.3 g/dL (6.4-8.2); Sodium Level 139 mmol/L (136-145)
[2023-12-22 14:33] LABS: Mucous, Urine 0 SEEN /hpf (<or=2+); Red Blood Cells-Urine 0 SEEN /hpf (0-5); White Blood Cells 0 SEEN /hpf (0-5)
[2023-12-22 14:43] LABS: Color, Urine Yellow (Yellow); Glucose, Dipstick Normal (Normal); Ketone-Dipstick Negative (Negative); Leukocyte Esterase-Dipstick Negative /ul (Negative); Nitrite-Dipstick Negative (Negative); Occult Blood-Urine Negative /ul (Negative); Protein-Dipstick Negative (Negative); Urine Bilirubin Dipstick Negative (Negative); Urine Clarity Sl. Cloudy (Clear); Urine Urobilinogen Normal (Normal)
[2023-12-22 14:51] LABS: Internal QC Validated? YES +Cl - CLEAR BKGD
[2023-12-22 14:52] LABS: Pregnancy, Urine Negative Negative; Record Kit Lot#,Urine Preg 772476
[2023-12-22 14:56] LABS: Bacteria 1+ /hpf (None Seen); Squamous Epithelial Cells - UA 0-5 SEEN /hpf (5-10)
[2023-12-22 15:25] VITALS: BP 141/93; PULSE 83; RESP 14; O2SAT 99
--- NOTE | 2023-12-22 16:18 | EX.ED.DYSGE1 ---
HPI History of Present Illness Chief Complaint: GI Bleed Narrative Narrative: Patient is a 28-year-old female past medical history anxiety, depression, hypothyroidism, hypertension, PCOS who presents to the emergency department the chief complaint of abdominal pain for approximately 2 weeks ever since she discontinued her antibiotic that she was on for an infected tooth and for dark stools that she noted last night and then today. Patient denies any blood thinning medications. Patient states her pain is worsening in her upper portion of her abdomen which also prompted her to come here for further evaluation management. She states that nothing like this has happened before. [facility] Medical History Anxiety Depression Hypothyroidism Smoker Elevated blood pressure reading Abnormal Pap smear of cervix PCOS (polycystic ovarian syndrome) Thyroid disease Home Medications ?Medication ?Instructions ?Recorded ?Last Taken ?Type cholecalciferol (vitamin D3) 1,250 50,000 unit PO QWEEK 05/30/17 Unknown History mcg (50,000 unit) capsule levothyroxine 75 mcg tablet 75 mcg PO DAILY 05/30/17 Unknown History metformin 500 mg tablet 500 mg PO DAILY 05/30/17 Unknown History spironolactone 50 mg tablet 50 mg PO QAM 05/30/17 Unknown History esomeprazole magnesium 20 mg 20 mg PO DAILY #30 caps 12/29/21 Unknown Rx capsule,delayed release (Nexium) ondansetron 4 mg disintegrating 4 mg PO Q8H PRN nausea and 12/29/21 Unknown Rx tablet vomiting #10 tabs norethindrone (contraceptive) 0.35 0.35 mg PO QDAY #84 tabs 02/24/23 Unknown Rx mg tablet (Jacquelin) doxycycline hyclate 100 mg capsule 100 mg PO BID 10 days #20 caps 07/24/23 Unknown Rx azelastine 137 mcg (0.1 %) nasal 2 spray intranasal BID #30 mL 11/22/23 Unknown Rx spray dexamethasone 6 mg tablet 6 mg PO DAILY 10 days #10 tabs 11/22/23 Unknown Rx pantoprazole 40 mg tablet,delayed 40 mg PO DAILY #40 tabs 12/22/23 Unknown Rx release (Protonix) Allergy/AdvReac Type Severity Reaction Status Date / Time clindamycin Allergy Rash Verified 12/22/23 13:15 Family History Grandfather Heart disease Mother Diabetes Grandmother Diabetes Surgical History History of tonsillectomy Social History current occupational status: employed current occupation: [employer] Smoking Status: Current every day smoker tobacco type: cigarettes alcohol intake: never substance use type: does not use caffeine: Yes what type of physical activity do you participate in: none frequency: 3-4 times per week seatbelt use: always do you feel safe at home: Yes additional social history: single ROS ROS ED ROS Narrative Constitutional: Denies any fevers, chills, headaches, lightheadedness, dizziness Cardiovascular: Denies chest pain or palpitations Respiratory: Denies coughing wheezing shortness of breath Abdomen: Complains of abdominal pain as noted above as well as dark stools as noted above denies any vomiting : Denies any urinary symptoms Neurological: Denies any numbness, weakness, tingling Musculoskeletal: Denies back pain Skin: Denies rashes or lesions EXAM Physical Exam Narrative Exam Narrative: General: Patient was lying in bed rest comfortably did not appear to be in acute distress Head: Atraumatic, normocephalic Eyes: PERRL bilaterally, EOMI bilateral, no conjunctival injection noted Neck: Soft, supple, trachea midline Cardiovascular: Regular rate and rhythm no murmurs gallops rubs noted Respiratory: Clear to auscultation bilaterally no rales rhonchi or wheezes noted Abdomen: Soft, nondistended, nontender to palpation, bowel sounds present x 4 Extremities: +5/5 strength noted in the bilateral upper and lower extremities Neurological: Patient following commands knew that she was at [facility] years 2023 Skin: Warm, dry, intact Const Vital Signs: 12/22/23 13:15 12/22/23 15:25 Temperature 97 F L Temperature Source Temporal Pulse Rate 96 83 Respiratory Rate 18 14 Blood Pressure 93/75 141/93 H Blood Pressure Mean 81 109 Pulse Ox 100 99 Oxygen Delivery Method Room Air Room Air MDM MDM MDM Narrative Medical decision making narrative: Patient is a 28-year-old female who presented to the emerged part with chief complaint of abdominal pain dark tarry stools. Patient will have a workup performed here on the differential diagnose includes but not limited to viral gastroenteritis, upper gastrointestinal bleed, hemorrhoids, H. pylori. Once workup is obtained reviewed she will be reevaluated. Patient CBC reviewed and show white blood count 11,000, hemoglobin stable 12.3, platelet count was noted be normal at 425. Patient sodium normal at 139, potassium normal at 3.6, creatinine normal at 0.79. Patient's AST and ALT were 12 and 17 respectively, lipase normal at 27. Patient's urinalysis did not reveal any evidence of infection test was negative. Patient CT abdomen pelvis with IV contrast reviewed showed a possible hydrosalpinx on the right no acute processes recommending outpatient ultrasound. Patient was given a hard copy of these results for her own personal records and was advised to call her OB for ultrasound. She can also follow-up on these results with her primary care physician. Did repeat abdominal exam at 4:50 PM and no tenderness to palpation on exam no rebound or guarding noted no concern for a surgical abdomen rectal exam was performed and small amount of sample was obtained was noted to be dark in nature. At this point in time the patient would like to go home. Patient will be placed on Protonix 40 mg twice a day for 5 days and then encouraged to transition to Protonix 40 mg daily. She was given gastroenterology follow-up. Patient was encouraged return with worsening symptoms or other concerns. She is agreeable with this plan all question concerns answered she is discharged home in stable condition. Lab Data Labs: Laboratory Results - last 24 hr 12/22/23 12/22/23 13:49 14:26 WBC 11.3 H RBC 4.50 Hgb 12.3 Hct 38.2 MCV 84.9 MCH 27.3 MCHC 32.2 RDW Std Deviation 43.6 RDW Coeff of Julienne 14.2 Plt Count 425 MPV 10.1 Immature Gran % (Auto) 0.400 Neut % (Auto) 68.1 Lymph % (Auto) 23.8 Marinette % (Auto) 4.9 Eos % (Auto) 2.1 Baso % (Auto) 0.7 Absolute Neuts (auto) 7.7 Absolute Lymphs (auto) 2.69 Nucleated RBC % 0 Sodium 139 Potassium 3.6 Chloride 109 H Carbon Dioxide 23.0 Anion Gap 7 BUN 10 Creatinine 0.79 Estim Creat Clear Calc 143.87 Est GFR (MDRD) Af Amer 112 Est GFR (MDRD) Non-Af 92 BUN/Creatinine Ratio 12.7 Glucose 95 Calcium 9.6 Total Bilirubin 0.40 AST 12 L ALT 17 Alkaline Phosphatase 95 Total Protein 7.3 Albumin 3.6 Globulin 3.7 Albumin/Globulin Ratio 1.0 Lipase 27 Urine Color Yellow Urine Clarity Sl. Cloudy Urine pH 7.0 Ur Specific Galt 1.010 Urine Protein Negative Urine Glucose (UA) Normal Urine Ketones Negative Urine Occult Blood Negative Urine Nitrite Negative Urine Bilirubin Negative Urine Urobilinogen Normal Ur Leukocyte Esterase Negative Urine RBC 0 SEEN Urine WBC 0 SEEN Ur Squamous Epith Cells 0-5 SEEN Urine Bacteria 1+ Urine Mucus 0 SEEN Urine Test Negative Radiography Diagnostic Testing: Clinical Impression(s) from Imaging Studies Abdomen/Pelvis CT 12/22/23 13:37 IMPRESSION: Possible hydrosalpinx on the right. Otherwise no acute disease. Recommend pelvic ultrasound. Electronically Signed: Mau Spears MD at 16:43 EDT Reading Location ID and State: [facility] / MD Tel , Service support , Discharge Plan Triage Chief Complaint: GI Bleed ED Provider: Stephen Alston Dx/Rx/DC Orders Clinical Impression: Abdominal pain, Acute upper GI bleed Prescriptions: New pantoprazole [Protonix] 40 mg tablet,delayed release (DR/EC) 40 mg PO DAILY Qty: 40 0RF No Action metformin 500 mg tablet 500 mg PO DAILY cholecalciferol (vitamin D3) 50,000 unit capsule 50,000 unit PO QWEEK spironolactone 50 mg tablet 50 mg PO QAM levothyroxine 75 mcg tablet 75 mcg PO DAILY norethindrone (contraceptive) [Jacquelin] 0.35 mg tablet 0.35 mg PO QDAY Qty: 84 4RF ondansetron 4 mg tablet,disintegrating 4 mg PO Q8H PRN (Reason: nausea and vomiting) Qty: 10 0RF esomeprazole magnesium [Nexium] 20 mg capsule,delayed release(DR/EC) 20 mg PO DAILY Qty: 30 0RF doxycycline hyclate 100 mg capsule 100 mg PO BID 10 Days Qty: 20 0RF azelastine 137 mcg (0.1 %) spray,non-aerosol 2 spray intranasal BID Qty: 30 0RF Rx Instructions: administer into each nostril dexamethasone 6 mg tablet 6 mg PO DAILY 10 Days Qty: 10 0RF Primary Care Provider: Blanka Lara Referrals: Blanka Lara, GLASS GLAZIER-C [Primary Care Provider] - Friend,DO Kaleb [Med Staff - Active Staff] - Activity Restrictions/Additional Instructions: Take 40 mg of Protonix twice a day for 5 days and then transition to 40 mg daily. Follow-up on the CT abdomen pelvis results with ultrasound as we discussed here. Follow-up with your OB team as well as your primary care physician and you referred to a senior administrative assistant follow-up with them. Return with worsening symptoms or other concerns as discussed here. Print Language: Frisian Disposition Disposition: Home, Self Care
== END 2023-12-22 17:26 | disposition home or self-care (01) ==
PROVIDERS: Emergency Provider Emergency Medicine; PCP Nurse Practitioner Family; Visit Provider Emergency Medicine
DX: K92.1 Melena (principal); I10 Essential (primary) hypertension; F17.210 Nicotine dependence, cigarettes, uncomplicated; Z79.899 Other long term (current) drug therapy
CPT/HCPCS: 74177; 80053; 81001; 81025; 82274; 83690; 85025; 96361; 96365; 99282; Q9967; A4216

== ENCOUNTER 2023-12-29 19:33 | Emergency (ER) | payer MEDICAID, SELFPAY ==
[2023-12-29 19:34] VITALS: BP 174/91; PULSE 90; RESP 18; TEMP 36.6; O2SAT 100; BMI 40.7
--- NOTE | 2023-12-29 19:37 | EKG12_ITS ---
Test Reason : DYSRHYTHMIA Blood Pressure : / mmHG Vent. Rate : 082 BPM Atrial Rate : 082 BPM P-R Int : 160 ms QRS Dur : 084 ms QT Int : 376 ms P-R-T Axes : 044 -04 012 degrees QTc Int : 439 ms Normal sinus rhythm Normal ECG Confirmed by BERNADETTE LLANOS, TONG ([id number]), metropolitan editor BRIONNA LOCKETT ([id number]) on 12/30/2023 7:47:55 AM Referred By: Confirmed By:TONG FLEMING MD
[2023-12-29 20:07] LABS: Absolute Lymphocyte Count 3.42 X10^3/uL (0.83-4.51); Basophil# 0.09 X10^3/uL; Basophil% 0.8 % (0-1); Eosinophil# 0.26 X10^3/uL; Eosinophils% 2.3 % (0-5); Hematocrit 39.8 % (37-47); Hemoglobin 13.1 g/dL (12.0-15.0); Lymphocyte # 3.42 X10^3/ul (0.83-4.51); Lymphocyte % 29.9 % (19-41); Mean Corp Hgb Conc 32.9 g/dL (32-36); Mean Corpuscular Hgb 27.6 pg (27.0-32.0); Mean Corpuscular Volume 83.8 fL (81-99); Mean Platelet Vol. 10.1 fl (6.2-12.0); Monocyte# 0.64 X10^3/uL; Monocyte% 5.6 % (0-10); NRBC Flagged by Analyzer 0 % (0-5); Neutrophil # 6.98 X10^3/uL (2.7-7.7); Neutrophil % 61.1 % (47-70); Platelet Count 458 K/mm3 (150-450); RBC Distribution Width CV 14.3 % (11.6-14.6); RBC Distribution Width SD 43.4 fl (35.1-43.9); Red Blood Count 4.75 M/mm3 (4.2-5.4); White Blood Count 11.4 K/mm3 (4.4-11.0)
[2023-12-29 20:24] LABS: Anion Gap 10 (5-15); BUN 8 mg/dL (7-18); BUN/Creat Ratio 9.6 RATIO (10-20); Calcium,Total 9.4 mg/dL (8.5-10.1); Chloride 108 mmol/L (98-107); Creatinine, Serum 0.84 mg/dL (0.55-1.02); EST Glomerular Filtration Rate 86 mL/min (>60); Est Glom Filt Rate - Afr Amer 105 mL/min (>60); Glucose 112 mg/dL (74-106); Potassium 4.5 mmol/L (3.5-5.1); Sodium Level 137 mmol/L (136-145)
[2023-12-29 20:52] LABS: Partial Thromboplast Time 30.9 Seconds (24.1-36.2)
[2023-12-29 21:14] LABS: Internal QC Validated? YES +Cl - CLEAR BKGD; Pregnancy, Serum, hCG Quali. NEGATIVE Negative
[2023-12-29 21:15] LABS: Record Kit Lot#, Serum Preg. 772476
[2023-12-29 21:34] VITALS: BP 150/84; PULSE 69; RESP 14; O2SAT 100
--- NOTE | 2023-12-29 21:46 | EX.ED.DYSGE1 ---
HPI History of Present Illness Chief Complaint: General Illness Informant: patient Narrative Narrative: Patient states for the past 2 or 3 days she has felt lightheaded and malaised. She has had some tingling all over on occasion but not right now. She denies any fevers, cough, vomiting or diarrhea, other obvious causes of an illness. Denies any recent medication changes except for being on pantoprazole the last time she was here which was about a week ago, she states she had some epigastric discomfort still there but not as bad. She denies any disequilibrium or vertiginous symptoms. When standing up versus changing positions versus turning her head, none of the lightheadedness changes. She states it is a little better when she is lying down trying to sleep. States she also is having a white chunky vaginal discharge without itching or vaginal pain, and she noticed that her urine is cloudy but no dysuria. [facility] Medical History Vitamin D deficiency Iron deficiency Fatigue Anxiety Depression Hypothyroidism Body mass index [BMI] 45.0-49.9, adult Obesity VINEET I (cervical intraepithelial neoplasia I) Abnormal Pap smear of cervix PCOS (polycystic ovarian syndrome) Home Medications ?Medication ?Instructions ?Recorded ?Last Taken ?Type cholecalciferol (vitamin D3) 1,250 50,000 unit PO QWEEK 05/30/17 Unknown History mcg (50,000 unit) capsule levothyroxine 75 mcg tablet 75 mcg PO DAILY 05/30/17 Unknown History spironolactone 50 mg tablet 50 mg PO QAM 05/30/17 Unknown History esomeprazole magnesium 20 mg 20 mg PO DAILY #30 caps 12/29/21 Unknown Rx capsule,delayed release (Nexium) norethindrone (contraceptive) 0.35 0.35 mg PO QDAY #84 tabs 02/24/23 Unknown Rx mg tablet (Jacquelin) pantoprazole 40 mg tablet,delayed 40 mg PO DAILY #40 tabs 12/22/23 Unknown Rx release (Protonix) ferrous sulfate 325 mg (65 mg 325 mg PO DAILY 12/26/23 Unknown History iron) tablet fluconazole 150 mg tablet 150 mg PO .once #1 TAB 12/29/23 Unknown Rx Allergy/AdvReac Type Severity Reaction Status Date / Time clindamycin Allergy Rash Verified 12/29/23 19:37 Family History Grandfather Heart disease Mother Diabetes Grandmother Diabetes Surgical History History of tonsillectomy Social History current occupational status: employed current occupation: [employer] Smoking Status: Current some day smoker tobacco type: cigarettes alcohol intake: never substance use type: does not use caffeine: Yes what type of physical activity do you participate in: none frequency: 3-4 times per week seatbelt use: always do you feel safe at home: Yes additional social history: single ROS ROS ED Constitutional Constitutional ED: Reports fatigue; Denies chills or fever(s) Eyes Eyes: Denies change in vision or diplopia ENT ENT ED: Denies rhinorrhea or sore throat Cardiovascular Cardiovascular: Denies chest pain or palpitations Respiratory/Chest Respiratory/Chest: Denies cough or dyspnea Gastrointestinal Gastrointestinal: Denies abdominal pain, diarrhea, nausea or vomiting Genitourinary Genitourinary ED: Reports urinary frequency and other Details: cloudy urine; white heterogenous vaginal discharge w/o vaginal pain or pruritis ; Denies dysuria or hematuria Musculoskeletal Musculoskeletal: Denies back pain or neck pain Integumentary Denies abscess or rash Neurologic Neurologic: Reports paresthesias; Denies headache(s) or weakness Psychiatric Psychiatric: Denies suicidal thoughts EXAM Physical Exam Const Vital Signs: 12/29/23 19:34 12/29/23 19:37 12/29/23 21:34 Temperature 98 F Temperature Source Oral Pulse Rate 90 69 Respiratory Rate 18 14 Respiratory Effort Respiratory Pattern Blood Pressure 174/91 H 150/84 H Blood Pressure Mean 118 106 Pulse Ox 100 100 Oxygen Delivery Method Room Air Room Air Room Air 12/29/23 22:25 12/29/23 23:00 Temperature Temperature Source Pulse Rate 70 Respiratory Rate 20 H Respiratory Effort Normal Respiratory Pattern Normal Blood Pressure 155/83 H Blood Pressure Mean 107 Pulse Ox 100 Oxygen Delivery Method Room Air Positive well nourished, well developed and obese General Appearance ED: well developed and NAD Nutritional Appearance: obese HEENT Reports moist mucous membranes normocephalic and atraumatic Eyes PERRL and EOMs intact bilaterally Neck full ROM, no lymphadenopathy and supple Resp normal respiratory effort and clear to auscultation bilaterally Cardio regular rate, regular rhythm and no murmurs GI non-tender and non-distended Auscultation: normoactive bowel sounds Palpation: soft Back/Spine no CVA tenderness General Back: other FROM Extremity normal to inspection General Extremety ED: Negative for edema, pulses abnormal or tenderness General Extremity: Negative for edema or pulses abnormal Neuro oriented x3, CN's II-XII intact bilaterally and no sensory deficits noted Sensorium / Orientation: awake and alert Motor Exam: strength 5/5 throughout Psych mental status grossly normal Skin no rashes or lesions noted and no wounds MDM MDM MDM Narrative Medical decision making narrative: Basic labs were obtained in addition to which is negative, she has a decreased bicarb, but no elevated anion gap consistent with a nonanion gap metabolic acidosis. Urinalysis obtained. 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 She does not have any other likely cause of an acute acidosis right now. She does not have acute electrolyte disorder to suggest adrenal insufficiency. It is noted her blood pressure is elevated, 170/91 which could be causing some of her symptoms if it is acute. This was rechecked later it is 150/84. However when I went back to reevaluate the patient after her urinalysis returned negative for infection, she is in the 170s. Renal function is normal. The urine shows protein, her pH is about 6, it is still possible this is aldosterone-related RTA type IV, and after IV fluids her lightheadedness is a little better but still possible blood pressure is related. I want her to follow-up for recheck before committing her to blood pressure medication, unclear at this time if she needs further testing but I do not think she needs anything else emergently. She is comfortable with this plan we are also going to prescribe her fluconazole for the vaginal discharge which may be yeast. Lab Data Attestation: I reviewed the patient's lab results. Labs: Laboratory Results - last 24 hr 12/29/23 12/29/23 20:04 22:28 WBC 11.4 H RBC 4.75 Hgb 13.1 Hct 39.8 MCV 83.8 MCH 27.6 MCHC 32.9 RDW Std Deviation 43.4 RDW Coeff of Julienne 14.3 Plt Count 458 H MPV 10.1 Immature Gran % (Auto) 0.300 Neut % (Auto) 61.1 Lymph % (Auto) 29.9 [place] % (Auto) 5.6 Eos % (Auto) 2.3 Baso % (Auto) 0.8 Absolute Neuts (auto) 7.0 Absolute Lymphs (auto) 3.42 Nucleated RBC % 0 APTT 30.9 Sodium 137 Potassium 4.5 Chloride 108 H Carbon Dioxide 19.0 L Anion Gap 10 BUN 8 Creatinine 0.84 Estim Creat Clear Calc 133.70 Est GFR (MDRD) Af Amer 105 Est GFR (MDRD) Non-Af 86 BUN/Creatinine Ratio 9.6 L Glucose 112 H Calcium 9.4 Serum , Qual NEGATIVE Urine Color Yellow Urine Clarity Sl. Cloudy Urine pH 6.0 Ur Specific [place] 1.020 Urine Protein 30 H Urine Glucose (UA) Normal Urine Ketones 15 H Urine Occult Blood Negative Urine Nitrite Negative Urine Bilirubin 1 H Urine Urobilinogen 4 H Ur Leukocyte Esterase 25 H Urine RBC 0 SEEN Urine WBC 0-5 SEEN Ur Squamous Epith Cells 5-10 SEEN Amorphous Sediment 1+ URATE Urine Bacteria 0 SEEN Urine Mucus 2+ Rhythm Strip Rhythm Strip: Sinus Rhythm Rate: 90 Ectopy: None EKG Initial EKG: Attestation: I personally reviewed and interpreted this EKG as follows: Interpretation: Sinus Rhythm and No Acute Injury Pattern Comments: nml EKG Discharge Plan Triage Chief Complaint: General Illness ED Provider: Angelito Bauman Dx/Rx/DC Orders Clinical Impression: Lightheadedness, Candidiasis of vagina, Metabolic acidosis, normal anion gap (NAG), Episode of hypertension Instructions: Candidiasis Vaginal, Hypertension Dc Prescriptions: New fluconazole 150 mg tablet 150 mg PO .once Qty: 1 0RF No Action cholecalciferol (vitamin D3) 50,000 unit capsule 50,000 unit PO QWEEK spironolactone 50 mg tablet 50 mg PO QAM levothyroxine 75 mcg tablet 75 mcg PO DAILY norethindrone (contraceptive) [Jacquelin] 0.35 mg tablet 0.35 mg PO QDAY Qty: 84 4RF ferrous sulfate 325 mg (65 mg iron) tablet 325 mg PO DAILY esomeprazole magnesium [Nexium] 20 mg capsule,delayed release(DR/EC) 20 mg PO DAILY Qty: 30 0RF pantoprazole [Protonix] 40 mg tablet,delayed release (DR/EC) 40 mg PO DAILY Qty: 40 0RF Primary Care Provider: Blakna Lara Referrals: Blanka Lara, PLASTIC PRESS OPERATOR-C [Primary Care Provider] - As soon as possible (For reevaluation including blood pressure recheck) Print Language: [place]
[2023-12-29] MEDS: 0.9% Normal Saline (500mL Bag) 500 ML 999 ML IV (22:22)
[2023-12-29 22:35] LABS: Bacteria 0 SEEN /hpf (None Seen); Red Blood Cells-Urine 0 SEEN /hpf (0-5)
[2023-12-29 22:37] LABS: Color, Urine Yellow (Yellow); Glucose, Dipstick Normal (Normal); Ketone-Dipstick 15 mg/dl (Negative); Leukocyte Esterase-Dipstick 25 /ul (Negative); Nitrite-Dipstick Negative (Negative); Occult Blood-Urine Negative /ul (Negative); Protein-Dipstick 30 mg/dl (Negative); Urine Clarity Sl. Cloudy (Clear); Urine Urobilinogen 4 mg/dl (Normal)
[2023-12-29 23:00] VITALS: BP 155/83; PULSE 70; RESP 20; O2SAT 100
[2023-12-29 23:15] LABS: Urine Bilirubin Dipstick 1 mg/dL (Negative)
[2023-12-29 23:19] LABS: Amorphous Sediment 1+ URATE; Mucous, Urine 2+ /hpf (<or=2+); Squamous Epithelial Cells - UA 5-10 SEEN /hpf (5-10); White Blood Cells 0-5 SEEN /hpf (0-5)
[2023-12-29 23:41] VITALS: BP 177/82; PULSE 72; RESP 20; TEMP 36.2; O2SAT 100
== END 2023-12-29 23:41 | disposition home or self-care (01) ==
PROVIDERS: Emergency Provider Emergency Medicine; PCP Nurse Practitioner Family; Visit Provider Emergency Medicine
DX: R42 Dizziness and giddiness (principal); B37.31 Acute candidiasis of vulva and vagina; E87.21 Acute metabolic acidosis; R03.0 Elevated blood-pressure reading, without diagnosis of hypertension; F17.210 Nicotine dependence, cigarettes, uncomplicated
CPT/HCPCS: 80048; 81001; 84703; 85025; 85730; 93005; 99284; J7040; A4216

== ENCOUNTER → 2024-01-14 | Outpatient (CLI) | payer MEDICAID, SELFPAY | END | disposition home or self-care (01) | PROVIDERS: PCP Nurse Practitioner Family; Referring Provider Nurse Practitioner Women's Health; Visit Provider Nurse Practitioner Women's Health | DX: Z11.3 Encounter for screening for infections with a predominantly sexual mode of transmission (principal) | CPT/HCPCS: 87491; 87591 ==

== ENCOUNTER → 2024-02-04 | Outpatient (CLI) | payer MEDICAID, SELFPAY ==
--- NOTE | 2024-02-04 14:31 | US_ITS ---
STUDY: ULTRASOUND OF THE FEMALE PELVIS - COMPLETE REASON FOR EXAM: Female, 28 years old. pelvic pain LMP: 01/22/2024 TECHNIQUE: Transabdominal and Transvaginal TECHNICAL QUALITY: Adequate. COMPARISON: 12/24/2018 FINDINGS: The uterus is anteverted and is in a midline position. The uterus measures 7.9 x 4.6 x 3.2 cm. Fluid in the endocervical canal. The endometrium measures 4 mm in thickness, and is hyperechoic. There is no demonstrated endometrial mass. There is no demonstrated myometrial mass. I.U.D. - The patient does not have an I.U.D. The right ovary is visualized. The right ovary measures 4.7 x 3.3 x 3.3 cm. There is no right ovarian cyst or ovarian mass. 4.1 cm oval anechoic mass with increased transmission within the right adnexa consistent with a par ovarian cyst. There is normal arterial and normal venous vascularity. The left ovary is visualized. The left ovary measures 4.6 x 3.7 x 2.7 cm. There is no left ovarian cyst or ovarian mass. There is no visualized left adnexal mass or complex lesion. There is normal arterial and normal venous vascularity. There is no fluid in the cul-de-sac. The pre void volume of the bladder was ml. The post void volume of the bladder was ml. Polycystic ovary disease: No. US/Pelvic w/ Transvaginal IMPRESSION: Some fluid in the endocervical canal. 4.1 cm right ovarian exophytic corpus luteum cyst or a par ovarian cyst. Electronically Signed: Thierno Cuenca MD at 12:12 EDT ,
== END | disposition home or self-care (01) ==
LOC: US 14:28 → SL 14:31
PROVIDERS: PCP Nurse Practitioner Family; Referring Provider Nurse Practitioner Family; Visit Provider Nurse Practitioner Family
DX: G47.10 Hypersomnia, unspecified (principal)
CPT/HCPCS: 76830; 76856; 95810

== ENCOUNTER → 2024-02-11 | Outpatient (CLI) | payer MEDICAID, SELFPAY ==
[2024-02-11 09:20] LABS: Absolute Lymphocyte Count 3.77 X10^3/uL (0.83-4.51); Absolute Neutrophil Count 6.6 X10^3/uL (2.0-7.7); Basophil% 0.9 % (0-1); Eosinophil# 0.44 X10^3/uL; Eosinophils% 3.8 % (0-5); Hematocrit 37.5 % (37-47); Lymphocyte # 3.77 X10^3/ul (0.83-4.51); Lymphocyte % 32.3 % (19-41); Mean Corpuscular Hgb 28.1 pg (27.0-32.0); Mean Corpuscular Volume 87.8 fL (81-99); Mean Platelet Vol. 9.9 fl (6.2-12.0); Monocyte# 0.74 X10^3/uL; Monocyte% 6.3 % (0-10); NRBC Flagged by Analyzer 0 % (0-5); Neutrophil # 6.56 X10^3/uL (2.7-7.7); Neutrophil % 56.3 % (47-70); Platelet Count 414 K/mm3 (150-450); RBC Distribution Width SD 44.6 fl (35.1-43.9); Red Blood Count 4.27 M/mm3 (4.2-5.4); White Blood Count 11.7 K/mm3 (4.4-11.0)
[2024-02-11 09:48] LABS: AST(SGOT) 8 U/L (15-37); Alanine Aminotransfer ALT/SGPT 15 U/L (13-56); Albumin, Serum 3.3 g/dL (3.2-5.0); Alkaline Phosphatase 89 U/L (45-117); Anion Gap 5 (5-15); BUN 7 mg/dL (7-18); BUN/Creat Ratio 9.8 RATIO (10-20); Calcium,Total 9.1 mg/dL (8.5-10.1); Chloride 109 mmol/L (98-107); Creatinine, Serum 0.72 mg/dL (0.55-1.02); EST Glomerular Filtration Rate 103 mL/min (>60); Est Glom Filt Rate - Afr Amer 125 mL/min (>60); Globulin 3.4 g/dL (2.2-4.2); Glucose 93 mg/dL (74-106); Potassium 3.3 mmol/L (3.5-5.1); Protein, Total 6.7 g/dL (6.4-8.2); Sodium Level 142 mmol/L (136-145); T4 Free Direct 1.06 ng/dL (0.76-1.46)
== END | disposition home or self-care (01) ==
LOC: VSLAB 08:39
PROVIDERS: PCP Nurse Practitioner Family; Visit Provider Nurse Practitioner Family
DX: E03.9 Hypothyroidism, unspecified (principal); T50.905A Adverse effect of unspecified drugs, medicaments and biological substances, initial encounter
CPT/HCPCS: 36415; 80053; 84439; 84443; 85025

== ENCOUNTER 2024-03-02 11:34 | Day surgery (SDC) | payer MEDICAID, SELFPAY ==
[2024-03-02] VITALS (7 sets, daily range): BP systolic 130–149; BP diastolic 76–93; PULSE 71–78; RESP 16; TEMP 36.8–36.9; O2SAT 98–100; BMI 41.6
[2024-03-02 12:33] LABS: Internal QC Validated? YES +Cl - CLEAR BKGD; Pregnancy, Urine Negative Negative
--- NOTE | 2024-03-02 13:00 | PRE.ANES_ITS ---
ASA Classification* ASA Classification ASA Classification: 3 Assessment & Plan Anesthesia* Anesthesia Assessment Anesthesia Assessment: Discussed sedation and/or anesthesia options, risks, benefits, and alternatives with patient/parents/legal guardian/POA. Questions invited. The patient/parents/legal guardian/POA seems to understand and agrees to proceed with anesthesia plan. Reviewed the physical assessment, medical history, allergy history and patient home medications list prior to surgery/procedure/anesthetic and documented any changes. Performed airway and anesthesia risk assessments. Anesthesia Type Anesthesia Type: MAC History Source History Obtained from:: Patient and Chart Anesthesia Focused Assessment* Temperature: 98.3 F Pulse Rate: 78 Blood Pressure: 143/91 Respiratory Rate: 16 Pulse Ox: 100 Oxygen Delivery Method: Room Air Airway Assessment Mouth opens: >3 cm Mallampati Score: III Teeth Condition: Chipped/Broken (Patient has 2 broken teeth right upper and lower molars.) Neck Range of motion (ROM): Full ROM Focused Labs Anesthesia Preop lab: CBC WBC 11.7 K/mm3 (4.4-11.0) H 02/11/24 08:39 RBC 4.27 M/mm3 (4.2-5.4) 02/11/24 08:39 Hgb 12.0 g/dL (12.0-15.0) 02/11/24 08:39 Hct 37.5 % (37-47) 02/11/24 08:39 Plt Count 414 K/mm3 (150-450) 02/11/24 08:39 CHEMISTRY Potassium 3.3 mmol/L (3.5-5.1) L 02/11/24 08:39 Sodium 142 mmol/L (136-145) 02/11/24 08:39 BUN 7 mg/dL (7-18) 02/11/24 08:39 Creatinine 0.72 mg/dL (0.55-1.02) 02/11/24 08:39 Glucose 93 mg/dL (74-106) 02/11/24 08:39 TSH 4.000 uIU/mL (0.358-3.740) H 02/11/24 08:39 COAG Urine Test Negative Negative 03/02/24 11:59 Tst Clinic Negative 10/15/17 15:06 Pre-Assessment Diagnosis/Proposed Procedure Planned Operative Procedure(s): EGD Anesthesia History Anesthesia History - skills instructor: Anesthesia History - skills instructor Hx Hospitalization No 02/27/24 13:41 Any Problems With Anesthesia No 02/27/24 13:41 Cholinesterase deficiency No 02/27/24 13:41 You/Your Family Experience No 02/27/24 13:41 fever (hyperthermia) with Relationship Recent Exposure to Contagious No 03/02/24 12:09 Disease Does patient have nerve No 02/27/24 13:41 stimulator Patient instructed to have device shut off --Does patient have Pacemaker No 03/02/24 12:09 or ICD? When Was Last Pacemaker Check QUESTION #4 FULL TEXT: You/Your Family Experience fever (hyperthermia) with Anesthesia Last Oral Intake Last Oral intake: Last Oral Intake NPO since 11:00 03/02/24 12:09 Meds taken in AM with sips of water? Meds patient instructed to take am of surgery PONV PONV - skills instructor: PONV - skills instructor Female Yes 02/27/24 13:41 HX of Motion Sickness No 02/27/24 13:41 HX of N/V After Surgery No 02/27/24 13:41 Non-Smoker No 02/27/24 13:41 Duration of Surgery greater No 02/27/24 13:41 than 60 minutes Number of Risk Factors 1 02/27/24 13:41 PONV Score Low Risk 02/27/24 13:41 Height & Weight Height & Weight: Anesthesia: Height & Weight Height 5 ft 7 in 03/02/24 12:09 Weight: 120.656 kg 03/02/24 12:09 Body Mass Index (BMI) 41.6 03/02/24 12:09 Respiratory Assessment Respiratory Assessment - skills instructor: Respiratory Tract Infection Hx - skills instructor Hx Respiratory Tract Infection No 02/27/24 13:41 STOP Sleep Apnea STOP Sleep Apnea - skills instructor: STOP Sleep Apnea - skills instructor Hx Hypertension Yes: CONTROLLED WITH MED 02/27/24 13:41 Hx Sleep Apnea No 02/27/24 13:41 CPAP BIPAP Do you snore loudly (louder No 02/27/24 13:41 than talking or can be heard Do you often feel tired/ No 02/27/24 13:41 fatigued/ sleepy during daytime? Has anyone observed you stop No 02/27/24 13:41 breathing during sleep? STOP Results Negative 02/27/24 13:41 QUESTION #5 FULL TEXT : Do you snore loudly (louder than talking or can be heard through closed doors)? 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 Specify any problems Hx of Preganancy in last 3 No 02/27/24 13:41 Months Nurse Filling Out Transfusion NBUCHER 02/27/24 13:41 & Questions: Date: 02/27/24 02/27/24 13:41 Time: 13:43 02/27/24 13:41 Patient unable to answer at this time (ie. confused, unrespo /Reproduction History /Reproductive History - skills instructor: /Reproductive Hx- skills instructor Hx Now Gestational Age (in weeks): EDC: Hx Hx Para Hx Section SAB No 03/02/24 10:10 PFSH Medical History COVID-19 Rash Thyroid disease Low iron Heartburn Gastric reflux Smoker Bradycardia Vitamin D deficiency Iron deficiency Fatigue Anxiety Depression Hypothyroidism Body mass index [BMI] 45.0-49.9, adult Obesity VINEET I (cervical intraepithelial neoplasia I) Abnormal Pap smear of cervix PCOS (polycystic ovarian syndrome) Home Medications ?Medication ?Instructions ?Recorded ?Last Taken ?Type cholecalciferol (vitamin D3) 1,250 50,000 unit PO QWEEK 05/30/17 Unknown History mcg (50,000 unit) capsule levothyroxine 75 mcg tablet 75 mcg PO DAILY 05/30/17 Unknown History spironolactone 50 mg tablet 50 mg PO QAM 05/30/17 03/02/24 History ferrous sulfate 325 mg (65 mg 325 mg PO DAILY 12/26/23 Unknown History iron) tablet pantoprazole 40 mg tablet,delayed 40 mg PO QDAY 02/03/24 Unknown History release cetirizine 10 mg tablet (24Hour 10 mg PO DAILY 02/27/24 Unknown History Allergy) norethindrone (contraceptive) 0.35 0.35 mg PO QDAY #84 tabs 03/02/24 03/02/24 Rx mg tablet (Jacquelin) Allergy/AdvReac Type Severity Reaction Status Date / Time clindamycin Allergy Rash Verified 03/02/24 12:09 Family History Grandfather Heart disease Mother Diabetes Grandmother Diabetes Surgical History History of tonsillectomy Social History current occupational status: employed current occupation: [employer] Smoking Status: Current every day smoker (Patient smoked today.) tobacco type: cigarettes alcohol intake: never substance use type: does not use caffeine: Yes what type of physical activity do you participate in: none frequency: 3-4 times per week seatbelt use: always do you feel safe at home: Yes additional social history: single Review of Systems (Anesthesia) ROS Narrative System reviewed and no additional complaints, except as documented.
--- NOTE | 2024-03-02 13:00 | EGD_PTH ---
PATHOLOGY RESULTS PATIENT: RAMY RIVERA LOC: EN U#:[id number] AGE/SX: 28/F ROOM: RE03/02/[address]: Dr. Kaleb Power DO : 1995 BED: DIS: 03/02/2024 SPEC #: [id number] RECD: 03/02/24 17:14 STATUS: BIGG REMarixa #: [id number] DARREN: 03/02/24 13:[address]: Kaleb Power DEPT: SURGICAL PATHOLOGY RECD BY: Danyel Tolentino ENTERED: 03/03/24 07:45 SP TYPE: EGD BIOPSY OT DR: Blanka Lara, [facility], AGRICULTURAL SCIENTIST-C Tissues: Duodenum, NOS Procedures: Surgery Specimen Level IV HEADER OPERATION: EGD with biopsy PRE-OP DIAGNOSIS: Abdominal pain TISSUE SUBMITTED: Duodenum biopsy MICROSCOPIC DIAGNOSIS Duodenum, biopsy: Fragments of duodenal mucosa, no pathologic diagnosis. Fragments of gastric mucosa with mild chronic inflammation. See comment. 03/04/2024 COMMENT Immunohistochemistry for H.pylori can be performed if clinically indicated. Please notify the laboratory if it is needed. MICROSCOPIC DESCRIPTION Slides are reviewed. GROSS DESCRIPTION Received in fixative is one container labeled with the patient's name and designated Duodenum biopsy. The specimen consists of multiple irregular fragments of light espinosa soft tissue that in aggregate measure 1.2 x 0.4 x 0.1 cm. The specimen is totally submitted in one cassette. 03/03/2024 TC:3 CPT:86096
--- NOTE | 2024-03-02 13:16 | PCM.HP.BLA ---
History and Physical Date of Admission: 03/02/24 Nurse's Note: OV 02.03.24 Pt here for c/o abdominal pressure she has been experiencing for about a month. She takes pantoprazole daily. Has never had an EGD or colonoscopy. [facility] Medical History Bradycardia Vitamin D deficiency Iron deficiency Fatigue Anxiety Depression Hypothyroidism Body mass index [BMI] 45.0-49.9, adult Obesity VINEET I (cervical intraepithelial neoplasia I) Abnormal Pap smear of cervix PCOS (polycystic ovarian syndrome) Surgical History History of tonsillectomy Family History Grandfather Heart diseaseMother DiabetesGrandmother Diabetes Social History current occupational status: employed current occupation: [employer] Smoking Status: Current some day smoker tobacco type: cigarettes alcohol intake: never substance use type: does not use caffeine: Yes what type of physical activity do you participate in: none frequency: 3-4 times per week seatbelt use: always do you feel safe at home: Yes additional social history: single HPI HPI Chief Complaint: abdominal pressure Details: RAMY RIVERA, is a 28 F who presents to the office today for establishment with [facility]. She has a PMHx of VINEET I, anxiety, depression, PCOS, hypothyroidism, iron deficiency, bradycardia and hydrosalpinx. She is here today for evaluation of abdominal/epigastric pressure which has been persistent for over a month now. She was seen in the ED here at [facility] about a month ago with normal work up. She has been taking Pantoprazole daily since then and has not noticed much of a difference. She feels all this is related to taking Amoxicillin for a tooth infection. She also mentions that she has intentionally lost some weight recently and wonders if this could be attributing it this feeling. She has had gastritis in the past and tells me it does not feel the same. She has never had an EGD. She denies n/v, heartburn, diarrhea constipation or melena. [facility] ED 12.22.23; visit for abdominal pain and dark stool CT abdomen pelvis 9.06.14; Possible hydrosalpinx on the right. Otherwise no acute disease. Recommend pelvic ultrasound. ROS Const Constitutional: Positive for fatigue and headache(s); No fever(s) or weight change ENT ENT: Positive for headache(s); No difficulty swallowing Gastro GI: Positive for abdominal pain, bloating, heartburn and excessive flatus; No belching, change in bowel habits, change in stool character, coffee ground emesis, constipation, cramping, diarrhea, difficulty swallowing, feeling full early, incontinent of stools, Vomiting blood/hematemesis, Blood in stool, loose stools, Black,tarry stools, nausea/dyspepsia, pain with swallowing, vomiting or other Musc Musculoskeletal: No joint pain Skin Skin: No yellowing of the eye or itchy eyes Neuro Neurology: Positive for headache(s) Psych Psychiatric: Positive for anxiety and Positive for depression Endo Endocrine: Positive for fatigue; No weight change Aller/Imm Allergy/Immunologic: No itchy eyes Brett/Lymp Hematologic/Lymphatic: No easy bleeding or easy bruising Exam Const General: cooperative and comfortable Nutritional Appearance: average body habitus and well nourished HENWA Head: normal to inspection Ears: hearing grossly normal bilaterally Nose: external nose normal Face and sinus: normal facial exam Eyes General: appearance normal, both eyes and all related structures Neck Neck: normal visual inspection Chest Chest palpation & inspection: normal inspection of the chest Resp Effort & Inspection: normal respiratory effort GI Inspection: normal to inspection Palpation: no hepatosplenomegaly Skin General: no rashes or lesions noted Neuro General: patient alert Extrem General: normal to inspection Psych Affect: normal affect Assessment and Plan Assessment and Plan (1) Abdominal pain: Plan: Pt is a 28 yo female here for evaluation of abdominal/epigastric pressure that started over a month ago. She was taking amoxicillin for a tooth infection when this all started. She has also had an intentional weight loss and wonders if this has attributed to it. It does not feel like heartburn to her and daily PPI therapy has not been helpful. She will undergo EGD to evaluate her upper GI tract to rule out hiatal hernia, GERD or ulcer. She is agreeable to this plan -EGD -Continue PPI -F/u in 3 months I have examined the patient and the H&P has been reviewed. There are no clinical changes since date of exam.
--- NOTE | 2024-03-02 13:46 | OP.CCLET_ITS ---
03/02/2024 Blanka Lara [facility], Database Administration Manager-c Re : Upper GI endoscopy procedure for Gabrielle Cooper Dear Marco This procedure was performed on Saturday, March 02, 2024. My impressions and recommendations are as follows: Impressions : - Normal esophagus. - Bilious gastric fluid. - Erythematous mucosa in the gastric body. Biopsied. - Erythematous duodenopathy. Recommendations : - Discharge patient to home. - Resume previous diet. - Continue present medications. - Await pathology results. My findings are described in the full procedure note, which is enclosed. If I can be of further assistance, please feel free to contact me at . Sincerely, Kaleb Power, 03/02/2024 1:46:12 PM This report has been signed electronically.
--- NOTE | 2024-03-02 13:46 | OP.EGD_ITS ---
Patient Name: Gabrielle Cooper Procedure Date: 03/02/2024 1:22 PM Date of : 1995 Age: 28 Procedure: Upper GI endoscopy Indications: Epigastric abdominal pain, Functional Dyspepsia, Failure to respond to medical treatment Providers: Kaleb Power DO Referring MD: Blanka Lara [facility] [place], [employer] Medicines: Monitored Anesthesia Care Patient Profile: This is a 28 year old female. Refer to note in patient chart for documentation of history and physical. Patient has symptoms of chronic abdominal distention, acute epigastric abdominal pain, chronic dyspepsia and chronic nausea. Complications: No immediate complications. Procedure: Pre-Anesthesia Assessment: - Prior to the procedure, a History and Physical was performed, and patient medications and allergies were reviewed. The patient is competent. The risks and benefits of the procedure and the sedation options and risks were discussed with the patient. All questions were answered and informed consent was obtained. Patient identification and proposed procedure were verified by the physician in the pre-procedure area. Mental Status Examination: alert and oriented. Airway Examination: normal oropharyngeal airway and neck mobility. Respiratory Examination: clear to auscultation. CV Examination: normal. Prophylactic Antibiotics: The patient does not require prophylactic antibiotics. Prior Anticoagulants: The patient has taken no anticoagulant or antiplatelet agents. ASA Grade Assessment: II - A patient with mild systemic disease. After reviewing the risks and benefits, the patient was deemed in satisfactory condition to undergo the procedure. The anesthesia plan was to use monitored anesthesia care (MAC). Immediately prior to administration of medications, the patient was re-assessed for adequacy to receive sedatives. The heart rate, respiratory rate, oxygen saturations, blood pressure, adequacy of pulmonary ventilation, and response to care were monitored throughout the procedure. The physical status of the patient was re-assessed after the procedure. After obtaining informed consent, the endoscope was passed under direct vision. Throughout the procedure, the patient's blood pressure, pulse, and oxygen saturations were monitored continuously. The gastroscope was introduced through the mouth, and advanced to the second part of duodenum. The upper GI endoscopy was accomplished without difficulty. The patient tolerated the procedure well. Scope In: 1:35:15 PM Scope Out: 1:39:11 PM Total Procedure Duration Time 0 hours 3 minutes 56 seconds Findings: The examined esophagus was normal. Bilious fluid was found in the gastric body. Patchy mildly erythematous mucosa without bleeding was found in the gastric body. Biopsies were taken with a cold forceps for histology. Verification of patient identification for the specimen was done. Estimated blood loss was minimal. Biopsies were taken with a cold forceps for Helicobacter pylori testing. Verification of patient identification for the specimen was done. Estimated blood loss was minimal. Lack contraction of the stomach. Reglan was given during the procedure to increase gastric motility. Patchy mildly erythematous mucosa without active bleeding and with no stigmata of bleeding was found in the duodenal bulb. Impression: - Normal esophagus. - Bilious gastric fluid. - Erythematous mucosa in the gastric body. Biopsied. - Erythematous duodenopathy. Recommendation: - Discharge patient to home. - Resume previous diet. - Continue present medications. - Await pathology results. Procedure Code(s): --- Professional --- 37280, Esophagogastroduodenoscopy, flexible, transoral; with biopsy, single or multiple CPT copyright 2021 [employer]. All rights reserved. The codes documented in this report are preliminary and upon outpatient coder review may be revised to meet current compliance requirements. Kaleb Power DO 03/02/2024 1:46:12 PM This report has been signed electronically. Number of Addenda: 0 Note Initiated On: 03/02/2024 1:22 PM
--- NOTE | 2024-03-02 13:48 | PCM.POST.ANE ---
Anesthesia: Postop Eval I Current Vital Signs Temperature: 98.3 F Pulse Rate: 74 Blood Pressure: 149/93 Respiratory Rate: 16 Pulse Ox: 99 Oxygen Delivery Method: Room Air Assessment Airway patent: Yes Spontaneous unlabored respirations: Yes Mental status: Awake and Calm nausea: No Vomiting: No Anesthesia Complication: No Fluid Hydration Crystalloid volume administer (ml): 30 Total IV fluid infused: 30 Progress Note Anesthesia document: Postop Eval 1 completed: Yes
--- NOTE | 2024-03-02 16:24 | PCM.POSTANE2 ---
Anesthesia Postop Eval I Sum Postop Eval Completion status Anesthesia document: Postop Eval 1 completed: Yes Anesthesia Postop Eval I Summary Anesthesia Postop Eval I Summary: Anesthesia Postop Eval I: Assessment Summary Airway patent Yes 03/02/24 13:49 [email or web address] Spontaneous unlabored Yes 03/02/24 13:49 [email or web address] respirations Mental status Awake,Calm 03/02/24 13:49 [email or web address] nausea No 03/02/24 13:49 [email or web address] Vomiting No 03/02/24 13:49 [email or web address] Anesthesia Postop Eval I: Fluid Summary Crystalloid volume administer 30 03/02/24 13:49 [email or web address] (ml) Colloids volume administered ( ml) Blood Product volume administered (ml) Total IV fluid infused 30 03/02/24 13:49 [email or web address] Anesthesia Postop Eval I: Summary Notes Anesthesia Complication No 03/02/24 13:49 [email or web address] Anesthesia Complication Comment: Post-operative progress note Anesthesia: Postop Eval II Evaluation Mental status: Awake and Calm Pain Level: 0 nausea: No Vomiting: No Complications Anesthesia Complication: No
== END 2024-03-02 14:33 | disposition home or self-care (01) ==
LOC: EN 11:35 → AC 11:37
PROVIDERS: Anesthesiology; PCP Nurse Practitioner Family; Referring Provider Nurse Practitioner Family; Visit Provider Internal Medicine Gastroenterology
PROC: 0DJ08ZZ Inspection of Upper Intestinal Tract, Via Natural or Artificial Opening Endoscopic (ICD-10-PCS; CPT 43235; principal; 2024-03-02 12:55)
DX: K31.89 Other diseases of stomach and duodenum (principal); F17.210 Nicotine dependence, cigarettes, uncomplicated; E03.9 Hypothyroidism, unspecified; E55.9 Vitamin D deficiency, unspecified; E61.1 Iron deficiency; Z12.4 Encounter for screening for malignant neoplasm of cervix; Z79.899 Other long term (current) drug therapy; K21.9 Gastro-esophageal reflux disease without esophagitis
CPT/HCPCS: 43239; 81025; 88175; 88305; G0145; J2405

== ENCOUNTER → 2024-03-02 | Outpatient (CLI) | payer MEDICAID, SELFPAY | END | disposition home or self-care (01) | LOC: LABSPEC 16:51 | PROVIDERS: PCP Nurse Practitioner Family; Referring Provider Nurse Practitioner Women's Health; Visit Provider Nurse Practitioner Women's Health | DX: Z12.4 Encounter for screening for malignant neoplasm of cervix (principal) | CPT/HCPCS: G0145; 88175 ==

== ENCOUNTER → 2024-03-10 | Outpatient (CLI) | payer MEDICAID, SELFPAY ==
--- NOTE | 2024-03-10 15:21 | US_ITS ---
PROCEDURE: ULTRASOUND OF THE FEMALE PELVIS - COMPLETE REASON FOR EXAM: Female, 28 years old. ovarian cyst f/u TECHNIQUE: Transabdominal and Transvaginal TECHNICAL QUALITY: Adequate. COMPARISON: Pelvic ultrasound dated February 04, 2024. CT of abdomen and pelvis dated December 22, 2023 FINDINGS: * Bilateral simple ovarian cyst are identified in the CT of abdomen and pelvis dated December 22, 2023. * On the pelvic ultrasound dated February 04, 2024 the previously seen left ovarian cyst have resolved, but the right ovarian exophytic cortical based cyst was still present maximally measuring 4.1 cm * On the current study there is no interval change in the cortical-based exophytic cyst arising from the inferior aspect of the right ovary maximally measuring 3.8 x 4.4 x 2.0 cm, which accounting for slight measuring technique and results in no interval change. There is no vascular flow or soft tissue components or septations within this cyst which is simple and benign in appearance. The cysts can be followed up within 3-6 months until 1 year of stability and no interval change or complexity has occurred. The uterus is anteverted and is in a midline position. The uterus measures 7.9 x 5.3 x 3.6 cm. There is no demonstrated myometrial mass. The endometrium measures 6.7 mm in thickness, and is hyperechoic. Minimal endometrial fluid is present. There is no demonstrated endometrial mass. Normal uterine cervix. The right ovary is visualized. The right ovary measures 4.2 x 5.2 x 2.9 cm. There is no right ovarian mass. There is no visualized right adnexal mass or complex lesion. The left ovary is visualized. The left ovary measures 5.0 x 3.8 x 3.3 cm. The degenerated left ovarian follicle noted measuring 1.7 cm which is of no clinical significance and is a normal physiologic process. There is no left ovarian mass. There is no visualized left adnexal mass or complex lesion. Normal color vascular flow and Doppler signal is demonstrated in both ovaries. There is no fluid in the cul-de-sac. US/Pelvic w/ Transvaginal IMPRESSION: 1. Bilateral simple ovarian cyst are identified in the CT of abdomen and pelvis dated December 22, 2023. 2. On the pelvic ultrasound dated February 04, 2024 the previously seen left ovarian cyst have resolved, but the right ovarian exophytic cortical based cyst was still present maximally measuring 4.1 cm 3. On the current study there is no interval change in the cortical-based exophytic cyst arising from the inferior aspect of the right ovary maximally measuring 3.8 x 4.4 x 2.0 cm, which accounting for slight measuring technique and results in no interval change. There is no vascular flow or soft tissue components or septations within this cyst which is simple and benign in appearance. The cysts can be followed up within 3-6 months until 1 year of stability and no interval change or complexity has occurred. Electronically Signed: Raymundo Bo MD at 10:51 EST ,
== END | disposition home or self-care (01) ==
LOC: US 15:21
PROVIDERS: PCP Nurse Practitioner Family; Referring Provider Nurse Practitioner Women's Health; Visit Provider Nurse Practitioner Women's Health
DX: N83.209 Unspecified ovarian cyst, unspecified side (principal)
CPT/HCPCS: 76830; 76856

== ENCOUNTER → 2024-04-12 | Outpatient (CLI) | payer MEDICAID, SELFPAY ==
--- NOTE | 2024-04-12 12:39 | NM_ITS ---
CLINICAL: 28-year-old female with history of epigastric pain. SEMI-SOLID PHASE 99m Tc SULFUR COLLOID GASTRIC EMPTYING STUDY COMPARISON: None available FINDINGS: The patient was administered 1.1 mCi of 99m Tc sulfur colloid mixed with oatmeal and consumed per os. Image acquisitions in the anterior-posterior projections were obtained for 60 minutes. There is prompt visualization of the stomach. There is no gastroesophageal reflux identified. The T ? linear fit was calculated to be 53.72 minutes, (Normal: 12-56 minutes). NM/Gastric Emptying Study IMPRESSION: 1. NORMAL 99m Tc sulfur colloid semi-solid phase (oatmeal) gastric emptying imaging examination. A. There is upper limits of normal and preserved semi-solid phase gastric emptying compared to normal controls with maintained first order kinetics throughout all components of the examination. (Augusto et al, J Nucl Med Tech 38: 186, 2010). Electronically Signed: Thierno Damon DO at 10:24 EST ,
== END | disposition home or self-care (01) ==
LOC: NM 12:39
PROVIDERS: PCP Nurse Practitioner Family; Referring Provider Student in an Organized Health Care Education/Training Program; Visit Provider Student in an Organized Health Care Education/Training Program
DX: R10.13 Epigastric pain (principal)
CPT/HCPCS: 78264; A9541

== ENCOUNTER → 2024-05-06 | Outpatient (CLI) | payer MEDICAID, SELFPAY ==
[2024-05-06 16:30] LABS: Absolute Neutrophil Count 7.8 X10^3/uL (2.0-7.7); Basophil# 0.11 X10^3/uL; Basophil% 0.8 % (0-1); Eosinophil# 0.42 X10^3/uL; Eosinophils% 3.1 % (0-5); Hematocrit 37.8 % (37-47); Hemoglobin 12.3 g/dL (12.0-15.0); Lymphocyte % 33.7 % (19-41); Mean Corp Hgb Conc 32.5 g/dL (32-36); Mean Corpuscular Hgb 27.6 pg (27.0-32.0); Mean Corpuscular Volume 84.9 fL (81-99); Mean Platelet Vol. 9.7 fl (6.2-12.0); Monocyte# 0.71 X10^3/uL; Monocyte% 5.2 % (0-10); NRBC Flagged by Analyzer 0 % (0-5); Neutrophil # 7.78 X10^3/uL (2.7-7.7); Platelet Count 416 K/mm3 (150-450); RBC Distribution Width CV 13.6 % (11.6-14.6); RBC Distribution Width SD 42.5 fl (35.1-43.9); Red Blood Count 4.45 M/mm3 (4.2-5.4); White Blood Count 13.7 K/mm3 (4.4-11.0)
[2024-05-06 16:50] LABS: ALB/GLOB Ratio 0.9 RATIO (0.9-2.4); AST(SGOT) 12 U/L (15-37); Alanine Aminotransfer ALT/SGPT 15 U/L (13-56); Albumin, Serum 3.4 g/dL (3.2-5.0); Alkaline Phosphatase 93 U/L (45-117); Anion Gap 6 (5-15); BUN 12 mg/dL (7-18); BUN/Creat Ratio 18.2 RATIO (10-20); Calcium,Total 9.1 mg/dL (8.5-10.1); Chloride 107 mmol/L (98-107); Creatinine, Serum 0.66 mg/dL (0.55-1.02); EST Glomerular Filtration Rate 113 mL/min (>60); Est Glom Filt Rate - Afr Amer 137 mL/min (>60); Globulin 3.8 g/dL (2.2-4.2); Glucose 78 mg/dL (74-106); Iron 24 ug/dL (50-170); Iron Binding Capacity,Total 422 ug/dL (250-450); PERCENT IRON SATURATION 5.7 % (15.0-55.0); Potassium 3.8 mmol/L (3.5-5.1); Protein, Total 7.2 g/dL (6.4-8.2); Sodium Level 139 mmol/L (136-145); T4 Total, Thyroxin 12.4 ug/dL (4.8-13.9)
== END | disposition home or self-care (01) ==
LOC: VSLAB 15:51
PROVIDERS: PCP Nurse Practitioner Family
DX: E03.9 Hypothyroidism, unspecified (principal); E61.1 Iron deficiency; R03.0 Elevated blood-pressure reading, without diagnosis of hypertension
CPT/HCPCS: 36415; 80053; 83540; 83550; 84436; 84443; 85025

== ENCOUNTER → 2024-06-30 | Outpatient (CLI) | payer MEDICAID, SELFPAY ==
[2024-06-30 16:43] LABS: Absolute Lymphocyte Count 2.54 X10^3/uL (0.83-4.51); Basophil% 0.8 % (0-1); Eosinophil# 0.42 X10^3/uL; Eosinophils% 3.3 % (0-5); Hematocrit 40.1 % (37-47); Hemoglobin 13.1 g/dL (12.0-15.0); Lymphocyte # 2.54 X10^3/ul (0.83-4.51); Lymphocyte % 19.8 % (19-41); Mean Corp Hgb Conc 32.7 g/dL (32-36); Mean Corpuscular Hgb 28.2 pg (27.0-32.0); Mean Corpuscular Volume 86.2 fL (81-99); Mean Platelet Vol. 9.9 fl (6.2-12.0); Monocyte# 0.73 X10^3/uL; Monocyte% 5.7 % (0-10); NRBC Flagged by Analyzer 0 % (0-5); Neutrophil # 8.98 X10^3/uL (2.7-7.7); Neutrophil % 69.9 % (47-70); Platelet Count 407 K/mm3 (150-450); RBC Distribution Width CV 13.9 % (11.6-14.6); Red Blood Count 4.65 M/mm3 (4.2-5.4); White Blood Count 12.8 K/mm3 (4.4-11.0)
[2024-06-30 18:11] LABS: Ferritin 94 ng/mL (22-378); Iron 68 ug/dL (50-170); Iron Binding Capacity,Total 320 ug/dL (250-450); Iron Binding Capacity,Unsat 252 ug/dL (228-428)
== END | disposition home or self-care (01) ==
LOC: BIMLAB 16:01
PROVIDERS: PCP Internal Medicine; Referring Provider Internal Medicine; Visit Provider Internal Medicine
DX: E61.1 Iron deficiency (principal)
CPT/HCPCS: 36415; 82728; 83540; 83550; 85025

== ENCOUNTER → 2024-07-21 | Outpatient (CLI) | payer MEDICAID, SELFPAY ==
--- NOTE | 2024-07-21 12:49 | US_ITS ---
PROCEDURE: PELVIC W/ TRANSVAGINAL REASON FOR EXAM: Follow-up for right ovarian cyst. TECHNIQUE: Transabdominal and transvaginal pelvic ultrasound COMPARISON: Comparison is made with prior study dated July 05, 2024. FINDINGS: Measurements: Uterus: 7.8 cm x 5 cm x 3.2 cm with a volume of 78.05 mL Endometrial Thickness: 6.7 mm Right Ovary: 3.3 cm x 2.6 cm x 3.1 cm with a volume of 32.4 mL. Left Ovary: 3.7 cm x 2.9 cm x 3.7 cm with a volume of 33.7 mL. TRANSABDOMINAL: Uterus: Unremarkable Endometrium: Unremarkable Right ovary: Residual 4.8 cm 3.8 cm x 2.5 cm right ovarian cyst. Left ovary: Unremarkable Transvaginal sonography was performed to better visualize the endometrium. TRANSVAGINAL: Uterus: Unremarkable Endometrium: Unremarkable Right ovary: Persistent 4.8 cm x 3.8 cm 2.5 cm right ovarian cyst. Left ovary: Unremarkable Other adnexal findings: None. Cul-de-sac: No free intraperitoneal fluid identified. Tenderness: US/Pelvic w/ Transvaginal IMPRESSION: Persistent 4.8 cm x 3.8 cm 2.5 cm right ovarian cyst. Reading Location: [place] [id number]
== END | disposition home or self-care (01) ==
LOC: OPUS 12:48
PROVIDERS: PCP Internal Medicine; Referring Provider Nurse Practitioner Women's Health; Visit Provider Nurse Practitioner Women's Health
DX: N83.201 Unspecified ovarian cyst, right side (principal)
CPT/HCPCS: 76830; 76856

== ENCOUNTER 2024-08-11 17:51 | Emergency (ER) | payer MEDICAID, SELFPAY ==
[2024-08-11 17:52] VITALS: BP 157/84; PULSE 92; RESP 15; TEMP 36.9; O2SAT 95; BMI 44.6
--- NOTE | 2024-08-11 20:50 | RAD_ITS ---
PROCEDURE: CHEST PA AND LATERAL 08/11/2024 REASON FOR EXAM: COUGH TECHNIQUE: Frontal and lateral views of the chest. FINDINGS: Hardware: None Heart: The heart size is normal. Mediastinum: The mediastinal contour is unremarkable. Lungs: The lungs are clear. Bones: The bones are unremarkable. RAD/Chest PA and Lateral IMPRESSION: NO ACUTE FINDINGS. Reading Location: [id number]
[2024-08-11 21:03] VITALS: PULSE 88; RESP 18
[2024-08-11] MEDS: Ipratropium/Albuterol Sulfate 3 ML AMPUL.NEB INHALATION (21:03)
--- NOTE | 2024-08-11 21:33 | EDS_ITS ---
HPI History of Present Illness Chief Complaint: Cold Sx Narrative Narrative: Chief complaint and HPI: Cough and viral type symptoms. 29-year-old female with past medical history of anxiety, depression, PCOS presents for evaluation of cough and viral type symptoms. Onset of symptoms was Friday. Patient states that she has had some upper back pain secondary to the cough however this is currently resolved. States she went to urgent care and was given Tessalon Perles and inhaler. Has been using these. No history of asthma. Endorses OTC medications including Mucine. Patient states her symptoms have not improved which is why she presents for further evaluation. She denies any fever, chills, chest pain, shortness of breath, abdominal pain, nausea, vomiting. Review of systems: See HPI Medications: As listed on the chart Allergies: As listed on the chart PFSH: Per chart Vital signs: As listed on the chart. Reviewed. Physical exam: Gen: A&O x3, NAD Head: Normocephalic, atraumatic Eyes: No sclera icterus, conjunctiva clear, PERRL, EOMI ENT: TMs clear BL, moist mucous membranes, posterior oropharynx unremarkable, uvula midline, tonsils not enlarged, no tonsillar exudates Neck: Trachea midline, No JVD, Full ROM, No meningismus CV: RRR, no murmurs, no peripheral edema Resp: Lungs CTA BL, few intermittent wheezing, + cough GI: Abd soft, non-distended, non-tender, no r/r/g Musc: Full ROM, no deformity Skin: Warm, dry, no rash Neuro: Alert, oriented, grossly intact, sensation intact Psych: Cooperative, appropriate mood and affect [facility] Medical History Hypertension Dermatitis Hypersomnolence COVID-19 Rash Thyroid disease Low iron Heartburn Gastric reflux Smoker Bradycardia Vitamin D deficiency Iron deficiency Fatigue Anxiety Depression Hypothyroidism Body mass index [BMI] 45.0-49.9, adult Obesity VINEET I (cervical intraepithelial neoplasia I) Abnormal Pap smear of cervix PCOS (polycystic ovarian syndrome) Home Medications ?Medication ?Instructions ?Recorded ?Last Taken ?Type cholecalciferol (vitamin D3) 1,250 50,000 unit PO QWEE K 05/30/17 Unknown History mcg (50,000 unit) capsule levothyroxine 75 mcg tablet 75 mcg PO DAILY 05/30/17 U nknown History spironolactone 50 mg tablet 50 mg PO QAM 05/30/1702/19 History ferrous sulfate 325 mg (65 mg 325 mg PO DAILY 12/26/23 Unknown History iron) tablet cetirizine 10 mg tablet (24Hour 10 mg PO DAILY 4 Unknown History Allergy) norethindrone (contraceptive) 0.35 0.35 mg PO QDAY #84 tabs 03/02/24 03/02/24 Rx mg tablet (Jacquelin) omeprazole 40 mg capsule,delayed 40 mg PO QDAY #60 cap s 03/10/24 Unknown Rx release docusate sodium 100 mg capsule 100 mg PO QDAY #60 caps 05/07/24 Unknown Rx triamcinolone acetonide 0.1 % 1 applic topical BID PRN rash 06/30/24 Unknown Rx topical cream #453.6 grams Allergy/AdvReac Type Severity Reaction Status Date / Time amoxicillin Allergy Intermediate Rash Verified 08/11/24 17:55 clindamycin Allergy Rash Verified 08/11/24 17:55 Family History Grandfather Heart disease Mother Diabetes Grandmother Diabetes Surgical History History of tonsillectomy Social History adopted: No household members: family current occupational status: employed current occupation: [employer] Smoking Status: Current every day smoker tobacco type: cigarettes alcohol intake: never substance use type: does not use caffeine: Yes frequency: 3-4 times per week seatbelt use: always do you feel safe at home: Yes additional social history: single EXAM Physical Exam Const Vital Signs: 08/11/24 17:52 08/11/24 20:18 08/11/24 21:03 Temperature 98.5 F Temperature Source Oral Pulse Rate 92 88 Respiratory Rate 15 18 Respiratory Effort Normal Non-Labored Respiratory Pattern Normal Normal Blood Pressure 157/84 H Blood Pressure Mean 108 Pulse Ox 95 Oxygen Delivery Method Room Air MDM MDM MDM Narrative Medical decision making narrative: 29-year-old female with past medical history of anxiety, depression, PCOS presents for evaluation of cough and viral type symptoms. Physical exam unremarkable except for few intermittent expiratory wheezing. Differential diagnosis includes but is not limited to viral syndrome, COVID-19 infection, influenza, suspect less likely pneumonia. Vital stable other than mild hypertension. DuoNeb ordered for symptoms. COVID, flu, RSV testing ordered with chest x-ray. I do not think any laboratory workup is needed at this time. Patient is in agreement. COVID, flu, RSV negative. Chest x-ray was personally reviewed and interpreted by me, ED physician. No pneumonia, effusion, cardiomegaly, pneumothorax. Radiology in agreement. On reevaluation, wheezing has resolved. Patient symptoms are likely secondary to viral illness. No need for antibiotics at this time. Follow-up with PCP. She was educated to continue her OTC medications as well as inhaler as needed for wheezing. Return precautions explained. She confirmed understanding of the plan. At the end of her stay in the emergency department, we did lose access to our computer system therefore discharge order and instructions were given via paper. Impression: 1. Viral syndrome 2. Cough Radiography Diagnostic Testing: Clinical Impression(s) from Imaging Studies Chest X-Ray 08/11/24 20:50 IMPRESSION: NO ACUTE FINDINGS. Reading Location: [facility] Discharge Plan Triage Chief Complaint: Cold Sx ED Provider: Nathen Jacobo Dx/Rx/DC Orders Prescriptions: No Action cholecalciferol (vitamin D3) 50,000 unit capsule 50,000 unit PO QWEEK spironolactone 50 mg tablet 50 mg PO QAM levothyroxine 75 mcg tablet 75 mcg PO DAILY ferrous sulfate 325 mg (65 mg iron) tablet 325 mg PO DAILY docusate sodium 100 mg capsule 100 mg PO QDAY Qty: 60 2RF norethindrone (contraceptive) [Jacquelin] 0.35 mg tablet 0.35 mg PO QDAY Qty: 84 4RF triamcinolone acetonide 0.1 % cream 1 applic topical BID PRN (Reason: rash) Qty: 453.6 2RF cetirizine [24Hour Allergy] 10 mg tablet 10 mg PO DAILY omeprazole 40 mg capsule,delayed release(DR/EC) 40 mg PO QDAY Qty: 60 3RF Primary Care Provider: Lenore Meier Referrals: Lenore Meier MD [Primary Care Provider] - Print Language: Croatian Disposition Disposition: Home, Self Care Discharge Date/Time: 08/11/24 22:38
--- NOTE | 2024-08-12 00:59 | ED.RN ---
See downtime charting.
== END 2024-08-11 22:38 | disposition home or self-care (01) ==
LOC: ED 21:02
PROVIDERS: Emergency Provider Surgery; PCP Internal Medicine; Visit Provider Surgery
DX: B34.9 Viral infection, unspecified (principal); R05.9 Cough, unspecified; F17.210 Nicotine dependence, cigarettes, uncomplicated; Z86.16 Personal history of COVID-19
CPT/HCPCS: 71046; 87631; 94640; 99282

== ENCOUNTER 2024-12-16 19:31 | Emergency (ER) | payer BC, MEDICAID, SELFPAY ==
[2024-12-16 19:32] VITALS: BP 145/74; PULSE 73; RESP 16; TEMP 36.8; O2SAT 100; BMI 46.5
[2024-12-16 20:06] VITALS: BP 147/84; PULSE 76; RESP 18; TEMP 36.6; O2SAT 100
--- NOTE | 2024-12-16 20:06 | ED.VIS.GI ---
HPI HPI - GI History of Present Illness Chief Complaint: Diarrhea Diarrhea/Melena/Hematochezia GI Symptom: Positive for Diarrhea Onset: Month(s) (1) Stool Quality: Positive for Watery Narrative Narrative: 29-year-old female past medical history of gastroparesis and constipation as well as gastritis presents with diarrhea that she has had for a month. 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 Power's office today. They took a stool sample and did laboratory work. However, after her appointment she has had 7 episodes of watery stool. She states she usually only has 4-5 episodes a day over the last month. Usually, with her gastroparesis she is constipated so this is different for her. She states that she does not know what to do because she feels dehydrated and weak and she is continuing to have diarrhea multiple episodes a day. She denies any fevers or chills, no nausea or vomiting, no dysuria or hematuria, no exacerbating or alleviating factors. [facility] Medical History Axillary lump Hypertension Dermatitis Hypersomnolence COVID-19 Rash Thyroid disease Low iron Heartburn Gastric reflux Smoker Bradycardia Vitamin D deficiency Iron deficiency Fatigue Anxiety Depression Hypothyroidism Body mass index [BMI] 45.0-49.9, adult Obesity VINEET I (cervical intraepithelial neoplasia I) Abnormal Pap smear of cervix PCOS (polycystic ovarian syndrome) Home Medications ?Medication ?Instructions ?Recorded ?Last Taken ?Type cholecalciferol (vitamin D3) 1,250 50,000 unit PO QWEEK 05/30/17 Unknown History mcg (50,000 unit) capsule spironolactone 50 mg tablet 50 mg PO QAM 05/30/17 03/02/24 History ferrous sulfate 325 mg (65 mg 325 mg PO DAILY 12/26/23 Unknown History iron) tablet norethindrone (contraceptive) 0.35 0.35 mg PO QDAY #84 tabs 03/02/24 03/02/24 Rx mg tablet (Jacquelin) omeprazole 40 mg capsule,delayed 40 mg PO QDAY #60 caps 03/10/24 Unknown Rx release triamcinolone acetonide 0.1 % 1 applic topical BID PRN rash 06/30/24 Unknown Rx topical cream #453.6 grams amlodipine 5 mg tablet 5 mg PO QDAY #30 tabs 10/06/24 Unknown Rx levothyroxine 75 mcg tablet 75 mcg PO DAILY #90 tabs 11/23/24 Unknown Rx Allergy/AdvReac Type Severity Reaction Status Date / Time amoxicillin Allergy Intermediate Rash Verified 12/16/24 19:35 clindamycin Allergy Rash Verified 12/16/24 19:35 Family History Grandfather Heart disease Mother Diabetes Grandmother Diabetes Surgical History History of tonsillectomy Social History adopted: No household members: family current occupational status: employed current occupation: [employer] Smoking Status: Current every day smoker tobacco type: cigarettes alcohol intake: never substance use type: does not use caffeine: Yes frequency: 3-4 times per week seatbelt use: always do you feel safe at home: Yes additional social history: single ROS ROS ED ROS Narrative Review of systems positive for epigastric pain, as well as multiple episodes of watery diarrhea daily for the last month. Endorses generalized weakness and feelings of dehydration. No fevers or chills, no nausea or vomiting, denies prior abdominal surgeries. EXAM Physical Exam Narrative Exam Narrative: Afebrile. Vital signs noted. Nontoxic-appearing. Cardiovascular examination reveals a regular rate and rhythm. Lungs are clear to auscultation bilaterally. Abdomen is soft and nontender with the exception of minimal tenderness in the epigastrium, but no guarding or rebound. Positive bowel sounds. Neurological examination nonfocal, nonlateralizing. Const Vital Signs: 12/16/24 19:32 12/16/24 20:06 12/16/24 21:00 Temperature 98.3 F 97.9 F 97.9 F Temperature Source Temporal Temporal Temporal Pulse Rate 73 76 72 Respiratory Rate 16 18 19 H Blood Pressure 145/74 H 147/84 H 140/87 H Blood Pressure Mean 97 105 104 Pulse Ox 100 100 99 Oxygen Delivery Method Room Air Room Air Room Air 12/16/24 21:31 12/16/24 22:00 Temperature 98 F Temperature Source Oral Pulse Rate 97 78 Respiratory Rate 18 21 H Blood Pressure 138/79 H Blood Pressure Mean 98 Pulse Ox 100 99 Oxygen Delivery Method Room Air Room Air MDM MDM MDM Narrative Medical decision making narrative: Differential diagnosis includes but not limited to gastroenteritis versus colitis versus pancreatitis versus diverticulitis. I reviewed her prior laboratory work and ED visits. I do feel CT imaging is indicated today. Patient will be bolused normal saline 1 L intravenously. I did review her note from the gastroenterology [facility] today. Stool studies were sent. She has been having 3-4 watery stools for the last 2 months according to the note. She has to follow-up in 3 months and consider colonoscopy. I reviewed her laboratory work today and she does have a leukocytosis of 18.3, but compared to prior labs this is a chronic leukocytosis. Hemoglobin 12.9 with hematocrit 39.1, platelet count 391. Sodium is normal at 139 with potassium 3.4, carbon dioxide normal at 22.7, BUN and creatinine normal. LFTs show slightly elevated alk phos of 106 which I think is nonspecific. Lipase normal at 25. I doubt pancreatitis. Urinalysis is negative for infection. 0-5 WBCs. I do not feel antibiotics are indicated for a urinary tract infection. Review of the radiology report of the CT of the abdomen pelvis shows no acute process, no obstruction, no thickened colonic wall. At this point in time, I am unsure as to the cause of her daily diarrhea for 2 months, I do feel she can be discharged to follow-up with gastroenterology. Repeat examination shows that she feels improved and is motivated for discharge after IV fluids. Return instructions were reviewed. Disposition is discharged home in stable condition. History & Record Review Discussion w/independent historian: Patient Additional record(s) reviewed:: Prior outpatient record (Today's gastroenterology visit) and Prior ED visit Lab Data Attestation: I reviewed the patient's lab results. Labs: Laboratory Results - last 24 hr 12/16/24 20:40 WBC 18.3 H RBC 4.40 Hgb 12.9 Hct 39.1 MCV 88.9 MCH 29.3 MCHC 33.0 RDW Std Deviation 44.5 H RDW Coeff of Julienne 13.7 Plt Count 391 MPV 10.2 Immature Gran % (Auto) 0.400 Neut % (Auto) 60.4 Lymph % (Auto) 27.1 [place] % (Auto) 4.7 Eos % (Auto) 6.7 H Baso % (Auto) 0.7 Absolute Neuts (auto) 11.0 H Absolute Lymphs (auto) 4.95 H Nucleated RBC % 0 Sodium 139 Potassium 3.4 Chloride 102 Carbon Dioxide 22.7 Anion Gap 14 BUN 8 Creatinine 0.72 Estim Creat Clear Calc 166.83 Est GFR (MDRD) Non-Af 116 BUN/Creatinine Ratio 10.6 Glucose 93 Calcium 9.2 Total Bilirubin 0.19 AST 15 ALT 11 Alkaline Phosphatase 106 H Total Protein 7.5 Albumin 4.4 Globulin 3.2 Albumin/Globulin Ratio 1.4 Lipase 25 Serum , Qual NEGATIVE Urine Color Straw Urine Clarity Clear Urine pH 6.0 Ur Specific [place] 1.015 Urine Protein 15 H Urine Glucose (UA) Normal Urine Ketones Negative Urine Occult Blood Negative Urine Nitrite Negative Urine Bilirubin Negative Urine Urobilinogen Normal Ur Leukocyte Esterase Negative Urine RBC 0-5 SEEN Urine WBC 0-5 SEEN Ur Squamous Epith Cells 0-5 SEEN Urine Bacteria 0 SEEN Urine Mucus 0 SEEN Radiography Diagnostic Testing: Clinical Impression(s) from Imaging Studies Abdomen/Pelvis CT 12/16/24 21:32 IMPRESSION: 1. No acute findings in the abdomen or pelvis. 2. Right adnexal cyst measures 4.2 x 5.2 x 4.0 cm. Reading Location: [facility] Discharge Plan Triage Chief Complaint: Diarrhea ED Provider: Stef Jaimes Dx/Rx/DC Orders Clinical Impression: Watery stools, Epigastric pain, Diarrhea Instructions: ED Diarrhea, Unknown Cause, ED Epigastric Pain Uncertain Cause Prescriptions: No Action cholecalciferol (vitamin D3) 50,000 unit capsule 50,000 unit PO QWEEK spironolactone 50 mg tablet 50 mg PO QAM ferrous sulfate 325 mg (65 mg iron) tablet 325 mg PO DAILY norethindrone (contraceptive) [Jacquelin] 0.35 mg tablet 0.35 mg PO QDAY Qty: 84 4RF triamcinolone acetonide 0.1 % cream 1 applic topical BID PRN (Reason: rash) Qty: 453.6 2RF amlodipine 5 mg tablet 5 mg PO QDAY Qty: 30 3RF omeprazole 40 mg capsule,delayed release(DR/EC) 40 mg PO QDAY Qty: 60 3RF levothyroxine 75 mcg tablet 75 mcg PO DAILY Qty: 90 0RF Primary Care Provider: Lenore Meier Referrals: Lenore Meier MD [Primary Care Provider] - As soon as possible Friend,DO Kaleb [Med Staff - Active Staff] - As soon as possible Activity Restrictions/Additional Instructions: Follow-up with gastroenterology again, and let them know that you are in the emergency department. You can return to the emergency department with fever, increased pain, or any new or worsening symptoms as well. Print Language: Georgian Disposition Disposition: Home, Self Care
--- OUTSIDE RECORDS SUMMARY | 2024-12-16 20:28 | XMS RPT_ITS | CCD ---
Author Organization [facility] Care Team Providers Care Matcher Operator Name Role Phone Unavailable Primary Care Provider UnavailMARGI Olsen Attending Unavaila RAYA Orellana Referring Unavailable Maggie, COAGULATING DRYING SUPERVISOR-C Raya Primary Care Provider GLENN Serrano-C Raya Referring Provider Pedro ELIZABETH, COAGULATING DRYING SUPERVISOR-C Diane Attending Provider Gage Loagn Primary Care Provider Gage Logan Primary Care Provider PHILLIP BOYKIN Admitting Unavailable KENYA CERNASSICA COAGULATING DRYING SUPERVISOR%C Referring Unavailab le KENYA CERNASSICA COAGULATING DRYING SUPERVISOR%C Consulting Unavailab le PHILLIP BOYKIN Attending Unavailable PHILLIP BOYKIN Primary Care Unavailable PROVIDER, UNKNOWN Consulting Unavailable Gage Logan CNP Primary Care Provider Nehemiah COAGULATING DRYING SUPERVISORKenyaBlanka Primary Care Provider Nehemiah COAGULATING DRYING SUPERVISOR-CKenyaBlanka Primary Care Provider Nehemiah COAGULATING DRYING SUPERVISOR-C, Blanka Referring Provider Agapito Perez Attending Provider Keren Newsome Attending Provider Keren Newsome Referring Provider Anitha ELIZABETH-CKathy Attending Provider Hardeep LLANOS, Dr. Grover Attending Provider Hardeep LLANOS, Dr. Grover Primary Care Provider Hardeep LLANOS, Dr. Grover Referring Provider Nehemiah ELIZABETH-C, Blanka Primary Care Provider Nehemiah COAGULATING DRYING SUPERVISOR-C, Blanka Referring Provider Pedro COAGULATING DRYING SUPERVISOR-C, Diane Attending Provider York COAGULATING DRYING SUPERVISOR-C, Diane Referring Provider Nehemiah COAGULATING DRYING SUPERVISOR-C, Blanka Primary Care Provider Keren Newsome Attending Provider [phone] [facility] center[facility]SobeidaDr. Nathen aguustine DO Emergency Provider GAGE LOGAN Primary Care Unavailable NEHEMIAH, BLANKA Primary Care Unavailable DALIA GONZALES Attending Unavailable NEHEMIAH, BLANKA Primary Care Unavailable JAKE BERNABE Attending Unavailable NEHEMIAH, BLANKA Primary Care Unavailable NEHEMIAH, BLANKA Primary Care Unavailable Nehemiah COAGULATING DRYING SUPERVISOR-C, Blanka Primary Care Provider Nehemiah COAGULATING DRYING SUPERVISOR-C, Blanka [facility] august[facility] DO Attending Provider Oleghe, Efewongbe Referring Unavailable Oleghe, Efewongbe Attending Unavailable Oleghe, Efewongbe Primary Care Unavailable [facility], Blanka Primary Care Unavailabl e Stephen Alston Attending Unavailable Nehemiah VS, Blanka Primary Care Unavailabl e Angelito Bauman Attending Unavailable Nehemiah VS, Blanka Primary Care Unavailabl e Pedro COAGULATING DRYING SUPERVISOR, Diane Referring Unavailable Pedro COAGULATING DRYING SUPERVISORDiane Attending Unavailable [facility], Blanka Primary Care Unavailabl Keren Palomares Referring Unavailable Keren Shields Attending Unavailable Nehemiah VS, Blanka Primary Care Unavailabl e Enhemiah VSC, Blanka Referring Unavailabl e Oleghe, Efewongbe Attending Unavailable Oleghe, Efewongbe Primary Care Unavailable Oleghe, Efewongbe Referring Unavailable Oleghe, Efewongbe Attending Unavailable Nehemiah VS, Blanka Primary Care Unavailabl e Pedro COAGULATING DRYING SUPERVISOR, Diane Attending Unavailable Pedro COAGULATING DRYING SUPERVISOR, Diane Referring Unavailable Nehemiah VSC, Blanka Referring Unavailabl e Kaleb Power Attending Unavailable Nehemiah VS, Blanka Primary Care Unavailabl e Nehemiah VSC, Blanka Attending Unavailabl e Nehemiah VSC, [facility] Primary Care Unavailabl e Nehemiah VSC, Blanka Attending Unavailabl e Nehemiah VSC, [facility] Primary Care Unavailabl e Nehemiah VSC, [facility] Primary Care Unavailabl e Pedro COAGULATING DRYING SUPERVISOR, Diane Attending Unavailable Pedro COAGULATING DRYING SUPERVISOR, Diane Referring Unavailable Pedro COAGULATING DRYING SUPERVISOR, Diane Attending Unavailable Pedro COAGULATING DRYING SUPERVISOR, Diane Referring Unavailable Nehemiah [facility], [facility] Primary Care Unavailabl e [facility] Primary Care Unavailable Nathen Jacobo Attending Unavailabl e Nehemiah VSC, Blanka Referring Unavailabl e Keren Shields Attending Unavailable Nehemiah VSC, [facility] Primary Care Unavailabl e Nehemiah VSC, Blanka Referring Unavailabl e Nehemiah VSC, [facility] Primary Care Unavailabl e Pedro COAGULATING DRYING SUPERVISOR, Diane Attending Unavailable Nehemiah VSC, Blanka Referring Unavailabl e Nehemiha VSC, [facility] Primary Care Unavailabl e Agapito Perez Attending Unavailable [facility] Primary Care Unavailable Pedro COAGULATING DRYING SUPERVISOR, Diane Attending Unavailable Pedro COAGULATING DRYING SUPERVISOR, Diane Referring Unavailable Nehemiah VS, [facility] Primary Care Unavailabl e Beam VSCMinbulance Attending Unavailable Nehemiah [facility], [facility] Primary Care Unavailabl e Pedro COAGULATING DRYING SUPERVISOR, Diane Attending Unavailable Pedro COAGULATING DRYING SUPERVISOR, Diane Referring Unavailable Nehemiah [facility], [facility] Primary Care Unavailabl e Nehemiah VSC, Blanka Referring Unavailabl e Keren Shields Attending Unavailable Nehemiah VSC, Blanka Referring Unavailabl e Nehemiah VSC, [facility] Primary Care Unavailabl e Sal Shinril Attending Unavailable Nehemiah VSC, [facility] Primary Care Unavailabl e Nehemiah VSC, Blanka Referring Unavailabl e York COAGULATING DRYING SUPERVISOR, Diane Attending Unavailable Nehemiah C, [facility] Primary Care Unavailabl e Nehemiah VSC, Blanka Referring Unavailabl e Friend, Kaleb Attending Unavailable Friend, Kaleb Consulting Unavailable Nehemiah C, Blanka Referring Unavailabl e Nehemiah VSC, [facility] Primary Care Unavailabl e Pedro COAGULATING DRYING SUPERVISOR, Diane [facility]ending [facility] Olee, Efewongbe Referring Unavailable Keren Shields Attending Unavailable Nehemiah VSC, Blanka Attending Michael Cerna [facility], Blanka [facility]ff [facility] Referring Michael Vasquez COAGULATING DRYING SUPERVISOR, Diane Consulting Unavailable Hardeep LLANOS, Dr. Grover Primary Care Provider Hardeep LLANOS, Dr. Grover Attending Provider [phone] Hardeep LLANOS, Dr. Grover Referring Provider [phone] Keren Newsome Attending Provider [phone] Allergies Allergy Classification Reported Allergen(s) Allergy Type Date of Onset Reaction(s) Facility (20 sources) Clindamycin; Translations: [CLINDAMYCIN] Drug Allergy 04-18-2016 [facility] (1 source) Clindamycin Drug Allergy [facility] (5 sources) Amoxicillin Drug Allergy 06-30-2024 [facility] (1 source) Amoxicillin Drug Allergy 10-06-2024 [facility] (1 source) Clindamycin Drug Allergy 10-06-2024 [facility] Medications Current Medications Medication Drug Class(es) Dates Sig (Normalized) Sig (Original) [id number] 200 actuat albuterol 0.09 mg/actuat metered dose inhaler (14 sources) beta2-Adrenergic Agonist Start: 08-09-2024 take 2 puff(s) by inhalation every six hours as needed for wheezing albuterol HFA (PROVENTIL HFA, VENTOLIN HFA) 90 mcg/actuation inhaler Inhale 2 puffs as instructed every 6 hours as needed for wheezing/shortnes s of breath. 8 g 08/09/2024 Active Start: 02-19-2016 End: 05-30-2017 Albuterol Sulfate 1 INHALER inhaler Discontinued 1 - 2 NMA INHALATION EVERY 4 HOURS NEEDED as needed for Wheezing 1 0 February 19, 2016 12:00am May 30, 2017 12:22pm Start: 02-19-2016 End: 05-30-2017 take 1 puff(s) by inhalation every four hours as needed Albuterol Sulfate Discontinued 1 - 2 PUFF INHALATION EVERY 4 HOURS NEEDED February 19, 2016 12:00am May 30, 2017 12:22pm amLODIPine 5 mg oral tablet (2 sources) Dihydropyridine Calcium Channel Natividad Start: 10-06-2024 take 1 tablet by mouth once daily Amlodipine 5 mg tablet Active 5 mg PO daily 30 October 06, 2024 12:00am amoxicillin 875 mg oral tablet (2 sources) Penicillin-class Antibacterial Start: 08-18-2024 End: 08-25-2024 take 1 tablet by mouth twice daily amoxicillin (AMOXIL) 875 mg tablet Indications: Acute bronchitis, unspecified organism Take 1 tablet by mouth two times a day for 7 days. 14 tablet 08/18/2024 08/25/2024 Active Start: 08-29-2023 End: 09-08-2023 take 1 tablet by mouth twice daily amoxicillin (AMOXIL) 875 mg tablet Indications: Toothache Take 1 tablet by mouth two times a day for 10 days. 20 tablet 0 08/29/2023 09/08/2023 Active amoxicillin 875 mg / clavulanate 125 mg oral tablet (1 source) Penicillin-class Antibacterial Start: 03-29-2024 End: 04-05-2024 take 1 tablet by mouth twice daily amoxicillin-clavulanate potassium (AUGMENTIN) 875-125 mg per tablet Take 1 tablet by mouth two times a day for 7 days. 14 tablet 03/29/2024 04/05/2024 Active benzonatate 100 mg oral capsule (1 source) Non-narcotic Antitussive Start: 08-09-2024 End: 08-16-2024 take 1 capsule by mouth every eight hours as needed benzonatate (TESSALON PERLE) 100 mg capsule Take 1 capsule by mouth three times a day as needed for cough for up to 7 days. 21 capsule 08/09/2024 08/16/2024 Active Calcium Carbonate / vitamin D3 (7 sources) CALCIUM CARBONAT E/VITAMIN D3 (VITAMIN D-3 ORAL) Take by mouth. Active CALCIUM CARBONAT E/VITAMIN D3 (VITAMIN D-3 ORAL) Take by mouth. 0 Active Comment on above: Take by mouth. cholecalciferol 1.25 mg oral capsule (17 sources) Vitamin D Start: 09-06-2021 Cholecalciferol (vitamin D3) 1.25 MG (10845 UT) capsule Take 50,000 Units by mouth. Taking 54832 units weekly 0 09/06/2021 Active Start: 05-30-2017 take 1 capsule by mo [facility] every week Cholecalciferol (Vitamin D3) 50,000 unit capsule Active 87119 U PO EVERY WEEK May 30, 2017 1:00am ferrous sulfate 325 mg oral tablet (10 sources) Start: 12-26-2023 take 1 tablet by mouth once daily Ferrous Sulfate 325 mg (65 mg iron) tablet Active 325 mg PO DAILY December 26, 2023 12:00am Start: 09-06-2021 take 1 tablet by osmin once daily ferrous sulfate 325 (65 Fe) MG tablet Take 325 mg by mouth daily. 0 09/06/2021 Active take 1 tablet by osmin th once daily ferrous sulfate 325 mg (65 mg iron) tablet Take 1 tablet by mouth once daily. Active 12 hr guaiFENesin 600 mg extended release oral tablet (6 sources) Start: 10-24-2020 take 2 tablets by mouth twice daily guaiFENesin (MUCINEX) 600 mg 12 hr tablet Indications: Suspected COVID-19 virus infection Take 2 tablets by mouth twice daily. 40 tablet 10/24/2020 Active Comment on above: Take 2 tablets by [facility] twice daily. ibuprofen 600 mg oral tablet (7 sources) Nonsteroidal Anti-inflammatory Drug Start: 02-28-2020 take 1 tablet by mouth every six hours as needed ibuprofen (MOTRIN) 600 mg tablet Take 1 tablet by mouth every 6 hours as needed for Pain. 20 tablet 02/28/2020 Active Comment on above: Take 1 tablet by osmin every 6 hours as needed for Pain. levothyroxine sodium 0.075 mg oral tablet (20 sources) l-Thyroxine Start: 05-30-2017 End: 11-23-2024 take 1 tablet by mouth once daily Levothyroxine 75 mcg tablet Active 75 ug PO DAILY 90 0 November 23, 2024 11:33am Start: 11-10-2016 End: 05-30-2017 take 1 tablet by mouth once daily Levothyroxine 50 MCG tablet Discontinued 50 ug PO DAILY November 10, 2016 12:00am May 30, 2017 12:24pm LEVOTHYROXINE SO DIUM (LEVOTHYROXINE ORAL) Take by mouth. Active LEVOTHYROXINE SO DIUM (LEVOTHYROXINE ORAL) Take by mouth. 0 Active Comment on above: Take by mouth. omeprazole 40 mg delayed release oral capsule (17 sources) Proton Pump Inhibitor Start: 03-10-2024 take 1 capsule by mouth once daily Omeprazole 40 mg capsule,delayed release(DR/EC) Active 40 mg PO daily 60 3 March 10, 2024 1:00am Start: 12-03-2017 End: 12-14-2019 take 1 capsule by mouth once daily Omeprazole 20 MG capsule Discontinued 20 mg PO DAILY 30 0 December 03, 2017 12:00am December 14, 2019 1:03pm predniSONE 20 mg oral tablet (13 sources) Start: 08-18-2024 End: 08-22-2024 take 2 tablets by mouth once daily predniSONE (DELTASONE) 20 mg tablet Indications: Acute bronchitis, unspecified organism Take 2 tablets by mouth once daily for 4 days. 8 tablet 08/18/2024 08/22/2024 Active Start: 03-19-2021 End: 03-24-2021 take 2 tablets by mouth once daily Prednisone 10 mg tablet Discontinued 20 mg PO DAILY 10 5 0 March 19, 2021 1:00am March 23, 2021 1:00am March 24, 2021 1:01am Start: 03-19-2021 End: 03-24-2021 take 20 mg by mouth once daily Prednisone Discontinued 20 MG PO DAILY 10 5 March 19, 2021 1:00am March 24, 2021 1:01am spironolactone 50 mg oral tablet (17 sources) Aldosterone Antagonist Start: 05-30-2017 take 1 tablet by mouth once daily in the morning Spironolactone 50 mg tablet Active 50 mg PO EVERY MORNING May 30, 2017 1:00am triamcinolone acetonide 1 mg/ml topical cream (5 sources) Corticosteroid Start: 06-30-2024 Triamcinolone Acetonide 0.1 % cream Active 1 NMA TOPICAL TWICE A DAY as needed for rash 453.6 2 June 30, 2024 12:00am Completed/Discontinued Medications Medication Drug Class(es) Dates Sig (Normalized) Sig (Original) azelastine hydrochloride 0.137 mg/actuat metered dose nasal spray (5 sources) Histamine-1 Receptor Antagonist Start: 11-22-2023 End: 12-29-2023 Azelastine 137 mcg (0.1 %) spray,non-aerosol Discontinued 2 NMA INTRANASAL TWICE A DAY 30 0 November 22, 2023 12:00am December 29, 2023 10:27pm administer into each nostril cetirizine hydrochloride 10 mg oral tablet (5 sources) Histamine-1 Receptor Antagonist Start: 02-27-2024 End: 10-06-2024 take 1 tablet by mouth once daily Cetirizine (24hour Allergy) 10 mg tablet Discontinued 10 mg PO DAILY February 27, 2024 1:00am October 06, 2024 1:40pm Desogestrel-Ethinyl Estradiol (20 sources) Progestin, Estrogen Start: 10-15-2017 End: 10-15-2017 Desogestrel-Ethiny l Estradiol (Apri) 0.15-0.03 mg tablet Discontinued 1 TABLET PO daily October 15, 2017 2:34pm October 15, 2017 2:48pm Start: 10-15-2017 End: 10-15-2017 take 0.15 tablet by mouth once daily Desogestrel-Ethinyl Estradiol (Apri) 0.15-0.03 mg tablet Discontinued 1 {tbl} PO daily October 15, 2017 12:00am October 15, 2017 2:48pm Start: 10-15-2017 End: 10-15-2017 Desogestrel-Ethinyl Estradio l (Apri) 0.15-0.03 mg tablet Discontinued 1 TABLET PO daily October 14, 2017 11:00pm October 15, 2017 1:48pm Start: 10-15-2017 End: 10-15-2017 Desogestrel-Ethinyl Estradio l (Apri) 0.15-0.03 mg tablet Discontinued 1 TABLET PO daily October 15, 2017 12:00am October 15, 2017 2:48pm Start: 05-30-2017 End: 07-15-2017 Desogestrel-Ethinyl Estradio l (Apri) 0.15-0.03 mg tablet Discontinued 1 TABLET PO daily May 30, 2017 12:32pm July 15, 2017 11:33am Start: 05-30-2017 End: 07-15-2017 take 0.15 tablet by mouth once daily Desogestrel-Ethinyl Estradiol (Apri) 0.15-0.03 mg tablet Discontinued 1 {tbl} PO daily 17 04May 30, 2017 1:00am July 15, 2017 11:33am Start: 05-30-2017 End: 07-15-2017 take 0.15 tablet by mouth once daily Desogestrel-Ethinyl Estradiol (Apri) 0.15-0.03 mg tablet Discontinued 1 {tbl} PO daily May 30, 2017 1:00am July 15, 2017 11:33am Start: 05-30-2017 End: 07-15-2017 Desogestrel-Ethinyl Estradio l (Apri) 0.15-0.03 mg tablet Discontinued 1 TABLET PO daily May 30, 2017 12:00am July 15, 2017 10:33am Start: 05-30-2017 End: 07-15-2017 Desogestrel-Ethinyl Estradio l (Apri) 0.15-0.03 mg tablet Discontinued 1 TABLET PO daily May 30, 2017 1:00am July 15, 2017 11:33am dexamethasone 6 mg oral tablet (5 sources) Corticosteroid Start: 11-22-2023 End: 12-26-2023 take 1 tablet by mouth once daily Dexamethasone 6 mg tablet Discontinued 6 mg PO DAILY 10 10 0 November 22, 2023 12:00am December 26, 2023 12:53pm docusate sodium 100 mg oral capsule (5 sources) Start: 05-07-2024 End: 12-16-2024 take 1 capsule by mouth once daily Docusate Sodium 100 mg capsule Discontinued 100 mg PO daily 60 May 07, 2024 1:00am December 16, 2024 9:34am doxycycline hyclate 100 mg oral capsule (6 sources) Tetracycline-class Drug Start: 07-24-2023 End: 12-26-2023 take 1 capsule by mouth twice daily Doxycycline Hyclate 100 mg capsule Discontinued 100 mg PO TWICE A DAY 20 10 0 July 24, 2023 12:00am December 26, 2023 12:53pm ergocalciferol 1.25 mg oral capsule (12 sources) Provitamin D2 Compound Start: 11-10-2016 End: 05-30-2017 Ergocalciferol (Vitamin D2) 50,000 UNIT capsule Discontinued 32718 U PO Q7D November 10, 2016 12:00am May 30, 2017 12:23pm esomeprazole 20 mg delayed release oral capsule (8 sources) Proton Pump Inhibitor Start: 12-29-2021 End: 01-14-2024 take 1 capsule by mouth once daily Esomeprazole Magnesium (Nexium) 20 mg capsule,delayed release(DR/EC) Discontinued 20 mg PO DAILY 30 0 December 29, 2021 12:00am January 14, 2024 2:59pm Norgestimate-Ethinyl Estradiol (20 sources) Progestin, Estrogen Start: 12-14-2020 End: 12-14-2020 Norgestimate-Ethiny l Estradiol (Sprintec (28)) 0.25-35 mg-mcg tablet Discontinued 1 {tbl} PO daily 84 5 December 14, 2020 2:00pm December 14, 2020 2:17pm Start: 12-14-2020 End: 12-14-2020 Norgestimate-Ethinyl Estradi ol (Sprintec (28)) 0.25-35 mg-mcg tablet Discontinued 1 {tbl} PO daily 84 December 14, 2020 2:00pm December 14, 2020 2:17pm Start: 12-14-2020 End: 12-14-2020 take 1 tablet by mouth once daily Norgestimate-Ethinyl Estradiol (Sprintec (28)) 0.25-35 mg-mcg tablet Discontinued 1 TABLET PO daily December 14, 2020 1:00pm December 14, 2020 1:17pm Start: 12-14-2020 End: 12-14-2020 take 1 tablet by mouth once daily Norgestimate-Ethinyl Estradiol (Sprintec (28)) 0.25-35 mg-mcg tablet Discontinued 1 TABLET PO daily December 14, 2020 2:00pm December 14, 2020 2:17pm Start: 01-24-2020 End: 12-29-2021 take 1 tablet by mouth once daily SPRINTEC 0.25-35 mg-mcg per tablet Take 1 tablet by mouth once daily. 01/24/2020 12/29/2021 Discontinued Start: 12-14-2019 End: 12-14-2020 Norgestimate-Ethinyl Estradi ol (Sprintec (28)) 0.25-35 mg-mcg tablet Discontinued 1 {tbl} PO daily 84 5 December 14, 2019 1:10pm December 14, 2020 2:00pm Start: 12-14-2019 End: 12-14-2020 Norgestimate-Ethinyl Estradi ol (Sprintec (28)) 0.25-35 mg-mcg tablet Discontinued 1 {tbl} PO daily 84 December 14, 2019 1:10pm December 14, 2020 2:00pm Start: 12-14-2019 End: 12-14-2020 take 1 tablet by mouth once daily Norgestimate-Ethinyl Estradiol (Sprintec (28)) 0.25-35 mg-mcg tablet Discontinued 1 TABLET PO daily 84 December 14, 2019 12:10pm December 14, 2020 1:00pm Start: 12-14-2019 End: 12-14-2020 take 1 tablet by mouth once daily Norgestimate-Ethinyl Estradiol (Sprintec (28)) 0.25-35 mg-mcg tablet Discontinued 1 TABLET PO daily December 14, 2019 1:10pm December 14, 2020 2:00pm Start: 11-30-2019 End: 12-14-2019 Norgestimate-Ethinyl Estradi ol (Sprintec (28)) 0.25-35 mg-mcg tablet Discontinued 1 {tbl} PO daily 84 0 November 30, 2019 1:20pm December 14, 2019 1:10pm Start: 11-30-2019 End: 12-14-2019 Norgestimate-Ethinyl Estradi ol (Sprintec (28)) 0.25-35 mg-mcg tablet Discontinued 1 {tbl} PO daily November 30, 2019 1:20pm December 14, 2019 1:10pm Start: 11-30-2019 End: 12-14-2019 take 1 tablet by mouth once daily Norgestimate-Ethinyl Estradiol (Sprintec (28)) 0.25-35 mg-mcg tablet Discontinued 1 TABLET PO daily November 30, 2019 12:20pm December 14, 2019 12:10pm Start: 11-30-2019 End: 12-14-2019 take 1 tablet by mouth once daily Norgestimate-Ethinyl Estradiol (Sprintec (28)) 0.25-35 mg-mcg tablet Discontinued 1 TABLET PO daily November 30, 2019 1:20pm December 14, 2019 1:10pm Start: 10-19-2019 End: 11-30-2019 Norgestimate-Ethinyl Estradi ol (Sprintec (28)) 0.25-35 mg-mcg tablet Discontinued 1 {tbl} PO daily 84 0 October 19, 2019 3:28pm November 30, 2019 1:20pm Start: 10-19-2019 End: 11-30-2019 Norgestimate-Ethinyl Estradi ol (Sprintec (28)) 0.25-35 mg-mcg tablet Discontinued 1 {tbl} PO daily 84 October 19, 2019 3:28pm November 30, 2019 1:20pm Start: 10-19-2019 End: 11-30-2019 take 1 tablet by mouth once daily Norgestimate-Ethinyl Estradiol (Sprintec (28)) 0.25-35 mg-mcg tablet Discontinued 1 TABLET PO daily 84 October 19, 2019 2:28pm November 30, 2019 12:20pm Start: 10-19-2019 End: 11-30-2019 take 1 tablet by mouth once daily Norgestimate-Ethinyl Estradiol (Sprintec (28)) 0.25-35 mg-mcg tablet Discontinued 1 TABLET PO daily 84 October 19, 2019 3:28pm November 30, 2019 1:20pm Start: 11-05-2018 End: 10-19-2019 Norgestimate-Ethinyl Estradi ol (Sprintec (28)) 0.25-35 mg-mcg tablet Discontinued 1 {tbl} PO daily 84 4 November 05, 2018 11:25am October 19, 2019 3:28pm Start: 11-05-2018 End: 10-19-2019 Norgestimate-Ethinyl Estradi ol (Sprintec (28)) 0.25-35 mg-mcg tablet Discontinued 1 {tbl} PO daily 84 November 05, 2018 11:25am October 19, 2019 3:28pm Start: 11-05-2018 End: 10-19-2019 take 1 tablet by mouth once daily Norgestimate-Ethinyl Estradiol (Sprintec (28)) 0.25-35 mg-mcg tablet Discontinued 1 TABLET PO daily 84 November 05, 2018 10:25am October 19, 2019 2:28pm Start: 11-05-2018 End: 10-19-2019 take 1 tablet by mouth once daily Norgestimate-Ethinyl Estradiol (Sprintec (28)) 0.25-35 mg-mcg tablet Discontinued 1 TABLET PO daily 84 November 05, 2018 11:25am October 19, 2019 3:28pm Start: 09-21-2018 End: 11-05-2018 Norgestimate-Ethinyl Estradi ol (Sprintec (28)) 0.25-35 mg-mcg tablet Discontinued 1 {tbl} PO daily 84 2 September 21, 2018 3:55pm November 05, 2018 11:25am Start: 09-21-2018 End: 11-05-2018 Norgestimate-Ethinyl Estradi ol (Sprintec (28)) 0.25-35 mg-mcg tablet Discontinued 1 {tbl} PO daily 84 September 21, 2018 3:55pm November 05, 2018 11:25am Start: 09-21-2018 End: 11-05-2018 take 1 tablet by mouth once daily Norgestimate-Ethinyl Estradiol (Sprintec (28)) 0.25-35 mg-mcg tablet Discontinued 1 TABLET PO daily 84 September 21, 2018 2:55pm November 05, 2018 10:25am Start: 09-21-2018 End: 11-05-2018 take 1 tablet by mouth once daily Norgestimate-Ethinyl Estradiol (Sprintec (28)) 0.25-35 mg-mcg tablet Discontinued 1 TABLET PO daily 84 September 21, 2018 3:55pm November 05, 2018 11:25am Start: 08-13-2018 End: 09-21-2018 Norgestimate-Ethinyl Estradi ol (Sprintec (28)) 0.25-35 mg-mcg tablet Discontinued 1 {tbl} PO daily 84 0 August 13, 2018 4:25pm September 21, 2018 3:56pm Start: 08-13-2018 End: 09-21-2018 Norgestimate-Ethinyl Estradi ol (Sprintec (28)) 0.25-35 mg-mcg tablet Discontinued 1 {tbl} PO daily 84 August 13, 2018 4:25pm September 21, 2018 3:56pm Start: 08-13-2018 End: 09-21-2018 take 1 tablet by mouth once daily Norgestimate-Ethinyl Estradiol (Sprintec (28)) 0.25-35 mg-mcg tablet Discontinued 1 TABLET PO daily August 13, 2018 3:25pm September 21, 2018 2:56pm Start: 08-13-2018 End: 09-21-2018 take 1 tablet by mouth once daily Norgestimate-Ethinyl Estradiol (Sprintec (28)) 0.25-35 mg-mcg tablet Discontinued 1 TABLET PO daily August 13, 2018 4:25pm September 21, 2018 3:56pm Start: 01-07-2018 End: 08-13-2018 Norgestimate-Ethinyl Estradi ol (Sprintec (28)) 0.25-35 mg-mcg tablet Discontinued 1 {tbl} PO daily 84 January 07, 2018 3:30pm August 13, 2018 4:26pm Start: 01-07-2018 End: 08-13-2018 Norgestimate-Ethinyl Estradi ol (Sprintec (28)) 0.25-35 mg-mcg tablet Discontinued 1 {tbl} PO daily January 07, 2018 3:30pm August 13, 2018 4:26pm Start: 01-07-2018 End: 08-13-2018 take 1 tablet by mouth once daily Norgestimate-Ethinyl Estradiol (Sprintec (28)) 0.25-35 mg-mcg tablet Discontinued 1 TABLET PO daily January 07, 2018 2:30pm August 13, 2018 3:26pm Start: 01-07-2018 End: 08-13-2018 take 1 tablet by mouth once daily Norgestimate-Ethinyl Estradiol (Sprintec (28)) 0.25-35 mg-mcg tablet Discontinued 1 TABLET PO daily January 07, 2018 3:30pm August 13, 2018 4:26pm Start: 10-15-2017 End: 01-07-2018 take 1 tablet by mouth once daily Norgestimate-Ethinyl Estradiol (Sprintec (28)) 0.25-35 mg-mcg tablet Discontinued 1 TABLET PO daily October 15, 2017 2:48pm January 07, 2018 3:32pm Start: 10-15-2017 End: 01-07-2018 Norgestimate-Ethinyl Estradi ol (Sprintec (28)) 0.25-35 mg-mcg tablet Discontinued 1 {tbl} PO daily 16 07October 15, 2017 12:00am January 07, 2018 3:32pm Start: 10-15-2017 End: 01-07-2018 Norgestimate-Ethinyl Estradi ol (Sprintec (28)) 0.25-35 mg-mcg tablet Discontinued 1 {tbl} PO daily October 15, 2017 12:00am January 07, 2018 3:32pm Start: 10-15-2017 End: 01-07-2018 take 1 tablet by mouth once daily Norgestimate-Ethinyl Estradiol (Sprintec (28)) 0.25-35 mg-mcg tablet Discontinued 1 TABLET PO daily October 14, 2017 11:00pm January 07, 2018 2:32pm Start: 10-15-2017 End: 01-07-2018 take 1 tablet by mouth once daily Norgestimate-Ethinyl Estradiol (Sprintec (28)) 0.25-35 mg-mcg tablet Discontinued 1 TABLET PO daily October 15, 2017 12:00am January 07, 2018 3:32pm fluconazole 150 mg oral tablet (5 sources) Azole Antifungal Start: 12-29-2023 End: 01-14-2024 take 1 tablet by mouth once Fluconazole 150 mg tablet Discontinued 150 mg PO .once 1 0 December 29, 2023 12:00am January 14, 2024 2:59pm Inhalational Spacing Device (1 source) Start: 08-09-2024 End: 08-09-2024 Inhalational Spacing Device 1 device one time only for 1 dose. 1 each 08/09/2024 08/09/2024 metFORMIN hydrochloride 500 mg oral tablet (20 sources) Biguanide Start: 05-30-2017 End: 12-29-2023 take 1 tablet by mouth once daily Metformin 500 mg tablet Discontinued 500 mg PO DAILY May 30, 2017 1:00am December 29, 2023 10:27pm METFORMIN HCL (M ETFORMIN ORAL) Indications: Sore throat Take by mouth. Active METFORMIN HCL (M ETFORMIN ORAL) Indications: Sore throat Take by mouth. 0 Active Comment on above: Take by mouth. naproxen 500 mg oral tablet (12 sources) Nonsteroidal Anti-inflammatory Drug Start: 10-09-19 End: 12-14-19 take 1 tablet by mouth every twelve hours at mealtime Naproxen 500 mg tablet Discontinued 500 mg PO Q12H 30 2 October 08, 2018 12:00am December 14, 2019 1:03pm administer with food or milk norethindrone 0.35 mg oral tablet (20 sources) Start: 12-15-19 End: 03-02-20 take 1 tablet by mouth once daily Norethindrone (Contraceptive) (Jacquelin) 0.35 mg tablet Discontinued 0.35 mg PO daily 84 February 24, 2023 9:18am March 02, 2024 11:15am Comment on above: TAKE 1 TABLET BY OSMIN TH EVERY DAY. START DAY 1 OF MENSTRUAL CYCLE ondansetron 4 mg disintegrating oral tablet (20 sources) Serotonin-3 Receptor Antagonist Start: 12-30-19 End: 12-29-19 take 1 tablet by mouth every eight hours as needed for nausea and vomiting Ondansetron 4 mg tablet,disintegratin g Discontinued 4 mg PO Q8H as needed for nausea and vomiting 10 December 29, 2021 12:00am December 29, 2023 10:28pm Start: 10-07-2018 End: 12-14-2019 take 1 tablet by mouth every eight hours as needed for nausea Ondansetron 4 MG tablet Discontinued 4 mg PO EVERY 8 HOURS NEEDED as needed for Nausea October 07, 2018 12:00am December 14, 2019 1:03pm pantoprazole 40 mg delayed release oral tablet (14 sources) Proton Pump Inhibitor Start: 12-22-2023 End: 03-10-2024 take 1 tablet by mouth once daily Pantoprazole 40 mg tablet,delayed release (DR/EC) Discontinued 40 mg PO daily February 03, 2024 12:00am March 10, 2024 1:50pm Problems Active Problems Problem Classification Problem Date Documented Da te Episodic/Chronic Abdominal pain (20 sources) Pain in pelvis; Translations: [Pelvic and perineal pain] Onset: 4 03-02-2024 Episodic Acute bronchitis (2 sources) Acute bronchitis; Translations: [Acute bronchitis, unspecified] Onset: 5 08-18-2024 Episodic Allergic reactions (9 sources) Inflammatory dermatosis; Translations: [Dermatitis, unspecified] 06-30-2024 Episodic Anxiety disorders (10 sources) Anxiety; Translations: [Anxiety disorder, unspecified] 12-26-2023 Chronic Cardiac dysrhythmias (6 sources) Bradycardia; Translations: [Bradycardia, unspecified] Onset: 4 01-28-2024 Episodic Conditions associated with dizziness or vertigo (6 sources) Lightheadedness; Translations: [Dizziness and giddiness] Onset: 4 01-06-2024 Episodic Disorders of teeth and jaw (2 sources) Toothache; Translations: [Other specified disorders of teeth and supporting structures] 08-29-2023 Episodic Essential hypertension (15 sources) Elevated blood pressure; Translations: [Essential (primary) hypertension] 01-06-2024 Chronic Fluid and electrolyte disorders (5 sources) Metabolic acidosis, normal anion gap (NAG); Translations: [Normal anion gap metabolic acidosis] 01-06-2024 Episodic Gastrointestinal hemorrhage (6 sources) Acute upper gastrointestinal hemorrhage; Translations: [Gastrointestinal hemorrhage, unspecified] Onset: 4 12-30-2023 Episodic Genitourinary symptoms and ill-defined conditions (1 source) Increased frequency of urination; Translations: [Frequency of micturition] 06-28-2023 Episodic Inflammatory diseases of female pelvic organs (6 sources) Hydrosalpinx; 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] Onset: 4 01-14-2024 Chronic Malaise and fatigue (6 sources) Fatigue; Translations: [Other fatigue] Onset: 4 12-26-2023 Episodic Menstrual disorders (20 sources) Menometrorrhagia; Translations: [Excessive and frequent menstruation with irregular cycle] Onset: 6 02-19-2022 Chronic Comment on above: managed with progest erone OCP Mood disorders (5 sources) Depressive disorder; Translations: [Depression] 12-26-2023 Chronic Mycoses (5 sources) Candidiasis of vagina; Translations: [Candidiasis of vagina] 01-06-2024 Episodic Nausea and vomiting (8 sources) Nausea, vomiting and diarrhea; Translations: [Nausea with vomiting, unspecified] 01-06-2022 Episodic Nutritional deficiencies (5 sources) Vitamin D deficiency; Translations: [Vitamin D deficiency, unspecified] 12-26-2023 Chronic Nutritional deficiencies (10 sources) Iron deficiency; Translations: [Iron deficiency] Onset: 03-22-06-30-2024 Episodic Open wounds of extremities (12 sources) Laceration of left middle finger; Translations: [Laceration without foreign body of left middle finger without damage to nail, initial encounter] 02-07-2021 Episodic Other circulatory disease (12 sources) Elevated blood pressure; Translations: [Elevated blood-pressure reading, without diagnosis of hypertension] 12-14-2020 Episodic Comment on above: r/t combo OCP Other circulatory disease (1 source) Elevated blood-pressure reading without diagnosis of hypertension; Translations: [Elevated blood-pressure reading, without diagnosis of hypertension] 02-06-2024 Episodic Other endocrine disorders (9 sources) Polycystic ovary; Translations: [Polycystic ovarian syndrome] 06-30-2024 Chronic Other female genital disorders (12 sources) Cervical intraepithelial neoplasia grade 1; Translations: [Mild cervical dysplasia] 02-19-2022 Episodic Comment on above: colp 04/2017. Neg 10/20; 2019.2022 Other female genital disorders (1 source) Vaginal discharge; Translations: [Other specified noninflammatory disorders of vagina] 06-28-2023 Episodic Other gastrointestinal disorders (8 sources) Constipation; Translations: [Constipation, unspecified] 05-07-2024 Episodic Other gastrointestinal disorders (2 sources) Loose stool; Translations: [Other fecal abnormalities] 12-16-2024 Episodic Other nutritional; endocrine; and metabolic disorders (12 sources) Obesity; Translations: [Obesity, unspecified] 12-14-2020 Chronic Other nutritional; endocrine; and metabolic disorders (7 sources) Body mass index 40+ - severely obese; Translations: [Morbid (severe) obesity due to excess calories] Chronic Other nutritional; endocrine; and metabolic disorders (1 source) Obesity, unspecified; Translations: [Obesity, unspecified] 02-19-2022 Chronic Other skin disorders (2 sources) Mass of axilla; Translations: [Localized swelling, mass and lump, unspecified upper limb] 10-06-2024 Episodic Other upper respiratory infections (7 sources) Upper respiratory infection; Translations: [Acute upper respiratory infection, unspecified] Onset: 5 08-09-2024 Episodic Ovarian cyst (8 sources) Cyst of ovary; Translations: [Unspecified ovarian cyst, right side] Onset: 5 03-02-2024 Episodic Comment on above: 02/2024 4.1cm. 4.8cm. Chronic pain Pneumonia (except that caused by tuberculosis or sexually transmitted disease) (6 sources) Pneumonia; Translations: [Pneumonia, unspecified organism] 07-24-2023 Episodic Residual codes; unclassified (15 sources) Hypersomnia; Translations: [Hypersomnia, unspecified] Chronic Residual codes; unclassified (1 source) Hypersomnia, unspecified; Translations: [Hypersomnia, unspecified] Onset: 5 Chronic Residual codes; unclassified (12 sources) Tobacco use and exposure - finding; Translations: [Tobacco use] 02-19-2022 Episodic Comment on above: counseled: has decre ased. counseled Spondylosis; intervertebral disc disorders; other back problems (10 sources) Neck pain; Translations: [Cervicalgia] 12-08-2021 Episodic Thyroid disorders (20 sources) Acquired hypothyroidism; Translations: [Hypothyroidism, unspecified] Onset: 6 04-18-2016 Chronic Unclassified (4 sources) G47.10 - Hypersomnia, unspecified Unclassified (1 source) Cough, unspecified; Translations: [Cough, unspecified] Onset: 5 Viral infection (5 sources) Disease caused by 2019-nCoV; Translations: [COVID-19] 03-02-2024 Episodic Past or Other Problems Problem Classification Problem Date Documented Da te Episodic/Chronic Immunizations and screening for infectious disease (6 sources) Patient encounter status; Translations: [Encounter for screening for COVID-19] Onset: 02-04-2024 Episodic Other female genital disorders (2 sources) Mild cervical dysplasia; Translations: [Mild dysplasia of cervix] Onset: 03-02-2024 02-19-2022 Episodic Other gastrointestinal disorders (1 source) Constipation, unspecified; Translations: [Constipation, unspecified] Onset: 09-10-2024 Episodic Other screening for suspected conditions (not mental disorders or infectious disease) (1 source) Encounter for screening for malignant neoplasm of cervix; Translations: [Encounter for screening for malignant neoplasm of cervix] Onset: 03-09-2024 Episodic Residual codes; unclassified (2 sources) Tobacco use; Translations: [Tobacco use disorder] Onset: 03-02-2024 02-19-2022 Episodic Results Test Name Value Interpretation Reference Range Facility Internal Medicine Office Vis iton 10-06-2024 Internal Medicine Office Visit [facility] [address] [place] [address] [place] [address] OFFICE VISIT Date of Service: 10/06/24 MR#: [id number] Acct: [id number] Name: GABRIELLE COOPER Rep #: [id number] : 1995 Provider: Dr. Lenore chauhan MD Age/Sex: 29/F Location: [facility] Status: Signed Intake Vital Signs 06/30/24 15:38 08/11/24 17:52 10/06/24 13:38 Height 5 ft 7 in 5 ft 7 in 5 ft 7 in Weight: 300 lb BMI 47.0 BP 142/80 H Blood Pressure Location Lt brachial Position Sitting Respiration 18 Pulse 93 Pulse Source Monitor Temp 98.2 F Temp Source Temporal Pulse Oximetry (%) 98 Oxygen Delivery Method room air Intake Visit Reasons: 3 M FU Chief Complaint: 3 M FU Is patient in pain?: No Allergies amoxicillin Allergy (Intermediate, Verified 10/06/24 13:40) Rash clindamycin Allergy (Verified 10/06/24 13:40) Rash Medications ???Medication ???Instructions ???Recorded ???Confirmed ???Type cholecalciferol (vitamin D3) 1,250 50,000 unit PO QWEEK 05/30/17 History mcg (50,000 unit) capsule spironolactone 50 mg tablet 50 mg PO QAM 05/30/17 10/06/24 His tory ferrous sulfate 325 mg (65 mg 325 mg PO DAILY 12/26/23 10/06/24 History iron) tablet norethindrone (contraceptive) 0.35 0.35 mg PO QDAY #84 tabs 4 10/06/24 Rx mg tablet (Jacquelin) omeprazole 40 mg capsule,delayed 40 mg PO QDAY #60 caps 03/10/24 Rx release docusate sodium 100 mg capsule 100 mg PO QDAY #60 caps 05/07/24 0 10/06/24 Rx triamcinolone acetonide 0.1 % 1 applic topical BID PRN rash 06/1910/06/24 Rx topical cream #453.6 grams levothyroxine 75 mcg tablet 75 mcg PO DAILY #90 tabs 08/23/24 10/06/24 Rx amlodipine 5 mg tablet 5 mg PO QDAY #30 tabs 10/06/24 Rx PFSH Medical History (Updated 10/06/24 @ 20:[address] Lenore Meier MD) Axillary lump Hypertension Dermatitis Hypersomnolence COVID-19 Rash Thyroid disease Low iron Heartburn Gastric reflux Smoker Bradycardia Vitamin D deficiency Iron deficiency Fatigue Anxiety Depression Hypothyroidism Body mass index [BMI] 45.0-49.9, adult Obesity VINEET I (cervical intraepithelial neoplasia I) Abnormal Pap smear of cervix PCOS (polycystic ovarian syndrome) Surgical History History of tonsillectomy Family History Grandfather Heart disease Mother Diabetes Grandmother Diabetes Social History adopted: No household members: family current occupational status: employed current occupation: [employer] Smoking Status: Current every day smoker tobacco type: cigarettes alcohol intake: never substance use type: does not use caffeine: Yes frequency: 3-4 times per week seatbelt use: always do you feel safe at home: Yes additional social history: single HPI HPI Chief Complaint: 3 M FU Details: Gabrielle Cooper, is a 29-year-old female presenting with concerns of elevated blood pressure and an axillary lump. The patient reports her blood pressure readings at home range between 135 and 140 mmHg, despite adherence to spironolactone therapy. She has made dietary changes, including increased water intake and healthier food choices, such as grilled chicken and vegetables. Despite these efforts, her blood pressure remains elevated. She however states that she continues to smoke and does consume a large amount of Mountain Dew. The patient noticed a lump in her right axilla approximately two weeks ago, which appeared shortly after shaving. The lump has not increased in size, is non-tender, and initially had some drainage, which has since resolved. Yet to schedule with sleep medicine due to her schedule. Had a sleep study which was not suggestive of significant sleep apnea. Still reports concerns with sleep. Attestation: Documentation on this patient encounter was supported using ambient scribe technology/ voice AI technology. The patient consented to recording for the purpose of documenting the encounter. Provider reviewed content of the generated note prior to signature. ROS Const Constitutional: No body ache, chills, excessive sweating, fatigue, fever(s), frequent falls, headache(s), snoring, weight change, sleep problems, abnormal sleep pattern or change in appetite Eyes Eyes: No blurry vision, change in vision, eye pain or Light sensitivity ENT ENT: No abnormal hearing, ear or mastoid pain, tinnitus, nasal congestion, headache(s), neck pain or sore throat Resp Respiratory: No cough, shortness of breath, snoring or wheezing Cardio Cardiology: No chest pain at rest, chest pain with exertion, excessive sweating, shortness of breath, dyspnea on e (more content not included)... Normal [facility] 08-18-2024 [facility] Office Visit ([facility] ) GABRIELLE COOPER ([id number]) 1995 F Date Time Provider Department 08/18/24 4:45 PM DALIA GONZALES [facility] During your visit today, we recorded the following information about you: Temperature Pulse Respiration Blood pressure 98.7 degrees 92/minute 16/minute 120/78 Weight 130 kg Dalia Gonzales, JORDEN.[employer]BESTOS REMOVER 08/18/2024 4:55 PM Signed Acute Bronchitis What is acute bronchitis? Acute bronchitis is an infection of the bronchial (say: ?oopnq-oqm-puj?) tree. The bronchial tree is made up of the tubes that carry air into your lungs. When these tubes get infected, they swell and mucus (thick fluid) forms inside them. This makes it hard for you to breathe. You may cough up mucus and wheeze (make a whistling sound when you breathe). What causes acute bronchitis? Acute bronchitis is almost always caused by viruses that attack the lining of the bronchial tree and cause infection. As your body fights back against these viruses, more swelling occurs and more mucus is made. It takes time for your body to kill the viruses and heal the damage to your bronchial tubes. In most cases, the same viruses that cause colds cause acute bronchitis. Research has shown that bacterial infection is a much less common cause of bronchitis than we used to think. Very rarely, an infection caused by a fungus can cause acute bronchitis. How do people get acute bronchitis? The viruses that cause acute bronchitis are sprayed into the air or onto people?s hands when they cough. You can get acute bronchitis if you breathe in these viruses. You can also get it if you touch a hand that is coated with the viruses. If you smoke or are around damaging fumes (such as those in certain kinds of factories), you are more likely to get acute bronchitis and to have it longer. This is because your bronchial tree is already damaged. How is acute bronchitis treated? Most cases of acute bronchitis will go away on their own after a few days or a week. It's a good idea to get plenty of rest, drink lots of noncaffeinated fluids (for example, water and fruit juices) and increase the humidity in your environment. Because acute bronchitis is usually caused by viruses, antibiotics (medicines that kill bacteria) usually do not help. Even if you cough up mucus that is colored or thick, antibiotics probably won?t help you get better any faster. If you smoke, you should cut down on the number of cigarettes you smoke, or stop smoking altogether. This will help your bronchial tree heal faster. For some people with acute bronchitis, doctors prescribe medicines that are usually used to treat asthma. These medicines can help open the bronchial tubes and clear out mucus. They are usually given with an inhaler. An inhaler sprays the medicine right into the bronchial tree. Your doctor will decide if this treatment is right for you. How long will the cough from acute bronchitis last? You should call your doctor if: You continue to wheeze and cough for more than 2 weeks, especially at night or when you are active. You continue to cough for more than 2 weeks and sometimes have a bad-tasting fluid come up into your mouth. You have a cough, you feel very sick and weak, and you have a high fever that doesn?t go down. You cough up blood. You have trouble breathing when you lie down. Your feet swell. Sometimes the cough from acute bronchitis lasts for several weeks or months. Usually this happens because the bronchial tree is taking a long time to heal. However, a cough that doesn?t go away may be a sign of another problem, like asthma or pneumonia. If you smoke it is advised that you quit smoking. CONTACT YOUR DOCTOR IF: You have fevers for longer than five days or a fever more than 102 degrees You are still sick after 10 days After several days you are getting worse rather than better 4. You develop nausea, vomiting, diarrhea, or a rash. Go to the ER if you - experience pressure or pain in your chest - experience difficulty swallowing - experience difficulty breathing Follow up with your physician in 5-7 days or before if your symptoms get worse. Thank you for coming to [facility] today. I appreciate your confidence in choosing the [facility] for your medical care. Dalia Gonzales APRN.ASBESTOS REMOVER [facility] [address] [facility] [id number] Dalia Gonzales APRN.CNP 08/18/2024 5:02 PM Signed [facility] PATIENT NAME: Gabrielle Cooper DATE OF : 1995 TODAYS' DATE: 08/18/2024 Subjective: Ms. Cooper is a 29 year old female The patient is a 29-year-old female presenting for follow-up of a persistent cough and new onset rash. History of Present Illness: Cough: - Persistent cough x2 weeks. - Initial symptoms included cough, congestion, and wheezing (more content not included)... Normal [facility] Chest PA and Lateralon 08-11 Chest PA and Lateral [facility] Imaging Services [address] [place], [place] [address] Chest PA and Lateral MR#: [id number] Acct: [id number] Name: GABRIELLE COOPER Rep #: [id number] : 1995 F 29 From: Thierno Cuenca MD PCP: Dr. Lenore Meier MD Status: [facility] ER Study: Chest PA and Lateral Date of Exam: 08/11/24 Exam# [id number] Ordering Dr: Nathen Jacobo DO PROCEDURE: CHEST PA AND LATERAL 08/11/2024 REASON FOR EXAM: COUGH TECHNIQUE: Frontal and lateral views of the chest. FINDINGS: Hardware: None Heart: The heart size is normal. Mediastinum: The mediastinal contour is unremarkable. Lungs: The lungs are clear. Bones: The bones are unremarkable. RAD/Chest PA and Lateral IMPRESSION: NO ACUTE FINDINGS. Reading Location: [facility] CC: Dr. Nathen Jacobo DO; Dr. Lenore Meier MD Project Engineering Manager: Signed Normal [facility] Emergency Department Summary on 08-11-2024 Emergency Department Summary [facility] Medical Records Department [address] [place] [id number] Emergency Department Summary 08/11/24 MR#: [id number] Acct: [id number] Name: GABRIELLE COOPER Rep #: [id number] : 1995 29 From: Nathen Jacobo DO PCP: Dr. Lenore Meier MD Status:DEP ER Location: ED HPI History of Present Illness Chief Complaint: Cold Sx Narrative Narrative: Chief complaint and HPI: Cough and viral type symptoms. 29-year-old female with past medical history of anxiety, depression, PCOS presents for evaluation of cough and viral type symptoms. Onset of symptoms was Friday. Patient states that she has had some upper back pain secondary to the cough however this is currently resolved. States she went to urgent care and was given Tessalon Perles and inhaler. Has been using these. No history of asthma. Endorses OTC medications including Mucine. Patient states her symptoms have not improved which is why she presents for further evaluation. She denies any fever, chills, chest pain, shortness of breath, abdominal pain, nausea, vomiting. Review of systems: See HPI Medications: As listed on the chart Allergies: As listed on the chart PFSH: Per chart Vital signs: As listed on the chart. Reviewed. Physical exam: Gen: A O x3, NAD Head: Normocephalic, atraumatic Eyes: No sclera icterus, conjunctiva clear, PERRL, EOMI ENT: TMs clear BL, moist mucous membranes, posterior oropharynx unremarkable, uvula midline, tonsils not enlarged, no tonsillar exudates Neck: Trachea midline, No JVD, Full ROM, No meningismus CV: RRR, no murmurs, no peripheral edema Resp: Lungs CTA BL, few intermittent wheezing, + cough GI: Abd soft, non-distended, non-tender, no r/r/g Musc: Full ROM, no deformity Skin: Warm, dry, no rash Neuro: Alert, oriented, grossly intact, sensation intact Psych: Cooperative, appropriate mood and affect [facility] Medical History Hypertension Dermatitis Hypersomnolence COVID-19 Rash Thyroid disease Low iron Heartburn Gastric reflux Smoker Bradycardia Vitamin D deficiency Iron deficiency Fatigue Anxiety Depression Hypothyroidism Body mass index [BMI] 45.0-49.9, adult Obesity VINEET I (cervical intraepithelial neoplasia I) Abnormal Pap smear of cervix PCOS (polycystic ovarian syndrome) Home Medications ???Medication ???Instructions ???Recorded ???Last Taken ???Type cholecalciferol (vitamin D3) 1,250 50,000 unit PO QWEEK 05/30/17 Un known History mcg (50,000 unit) capsule levothyroxine 75 mcg tablet 75 mcg PO DAILY 05/30/17 Unknown H istory spironolactone 50 mg tablet 50 mg PO QAM 05/30/17 03/02/24 His tory ferrous sulfate 325 mg (65 mg 325 mg PO DAILY 12/26/23 Unknown H istory iron) tablet cetirizine 10 mg tablet (24Hour 10 mg PO DAILY 02/27/24 Unknown Hi story Allergy) norethindrone (contraceptive) 0.35 0.35 mg PO QDAY #84 tabs 4 03/02/24 Rx mg tablet (Jacquelin) omeprazole 40 mg capsule,delayed 40 mg PO QDAY #60 caps 03/10/24 Un known Rx release docusate sodium 100 mg capsule 100 mg PO QDAY #60 caps 05/07/24 U nknown Rx triamcinolone acetonide 0.1 % 1 applic topical BID PRN rash 06/19 06/15 Unknown Rx topical cream #453.6 grams Allergy/AdvReac Type Severity Reaction Status Date / Time amoxicillin Allergy Intermediate Rash Verified 08/11/24 17:55 clindamycin Allergy Rash Verified 08/11/24 17:55 Family History Grandfather Heart disease Mother Diabetes Grandmother Diabetes Surgical History History of tonsillectomy Social History adopted: No household members: family current occupational status: employed current occupation: [employer] Smoking Status: Current every day smoker tobacco type: cigarettes alcohol intake: never substance use type: does not use caffeine: Yes frequency: 3-4 times per week seatbelt use: always do you feel safe at home: Yes additional social history: single EXAM Physical Exam Const Vital Signs: 08/11/24 17:52 08/11/24 20:18 08/11/24 21:03 Temperature 98.5 F Temperature Source Oral Pulse Rate 92 88 Respiratory Rate 15 18 Respiratory Effort Normal Non-Labored Respiratory Pattern Normal Normal Blood Pressure 157/84 H Blood Pressure Mean 108 Pulse Ox 95 Oxygen Delivery Method Room Air MDM MDM MDM Narrative Medical decision making narrative: 29-year-old female with past medical history of anxiety, depression, PCOS presents for evaluation of cough and viral type symptoms. Physical exam unremarkable except for few intermittent expiratory wheezing. Differential diagnosis includ (more content not included)... Normal [facility] Influenza virus A and B and SARS-CoV-2 (COVID-19) and Respiratory syncytial virus RNAOrdered By: Nathen Jacobo on 08-11-2024 SARS-CoV-2 (COVID-19) RNA MAGDA+probe Ql (Unsp spec) [facility] M100.678on 08-11-2024 M100.678 Pending SARS-CoV-2 (COVID 19) Negative INFLUENZA A Negative INFLUENZA B Negative RSV PCR Negative Normal [facility] Comment on above: Performed By: #### L 7400.0353 #### [facility] [place], [address] CNOVon 08-09-2024 CNOV Office Visit (WSTR ) NICOLEGABRIELLE ([id number]) 1995 F Date Time Provider Department 08/09/24 7:30 PM JAKE BERNABE [facility] During your visit today, we recorded the following information about you: Temperature Pulse Respiration Blood pressure 97.8 degrees 88/minute 18/minute 118/78 Weight 128.2 kg Jake Bernabe APRN.ASBESTOS REMOVER 08/09/2024 7:50 PM Signed Subjective HPI Nontoxic-appearing 29-year-old female presents urgent care chief complaint cough wheezing nasal congestion sore throat. Duration of symptoms 3 days. Associate symptoms listed above. OTC medications none today. Sick contacts unknown. States mother sick currently with similar signs and symptoms her started a few days after patient's. States does have some shortness of breath with coughing. Did have a rescue inhaler at home where she had a couple puffs less. Did try to use that this did not help. Denies any chest pain or hemoptysis. No pleuritic pain. No fevers. Is not . Is not breast-feeding. Past medical history prescription medications allergies reviewed. .Patient presents with: Cough: Cough and wheezing x 3 days PAST MEDICAL HISTORY Diagnosis Date Hypothyroidism PCOS (polycystic ovarian syndrome) Pre-diabetes PAST SURGICAL HISTORY Procedure Laterality Date TONSILLECTOMY AND ADENOIDECTOMY HX ALLERGIES Clindamycin MEDICATIONS cholecalciferol, Vitamin D3, (VITAMIN D3) 1,250 mcg (50,000 unit) cap capsule Take 1 capsule by mouth one time a week. pantoprazole DR (PROTONIX) 40 mg tablet Take 1 tablet by mouth every afternoon. spironolactone (ALDACTONE) 50 mg tablet Take 50 mg by mouth once daily. ferrous sulfate 325 mg (65 mg iron) tablet Take 1 tablet by mouth once daily. Norethindrone, Contraceptive, 0.35 mg tablet TAKE 1 TABLET BY MOUTH EVERY DAY. START DAY 1 OF MENSTRUAL CYCLE guaiFENesin (MUCINEX) 600 mg 12 hr tablet Take 2 tablets by mouth twice daily. (Patient not taking: Reported on 06/28/2023) ibuprofen (MOTRIN) 600 mg tablet Take 1 tablet by mouth every 6 hours as needed for Pain. (Patient not taking: Reported on 02/06/2024) METFORMIN HCL (METFORMIN ORAL) Take by mouth. (Patient not taking: Reported on 02/06/2024) CALCIUM CARBONATE/VITAMIN D3 (VITAMIN D-3 ORAL) Take by mouth. levothyroxine (SYNTHROID) 75 mcg tablet Take 1 tablet by mouth once daily. FAMILY HISTORY Problem Relation Age of Onset Diabetes Mother Social History Tobacco Use Smoking status: Every Day Current packs/day: 0.50 Average packs/day: 0.5 packs/day for 12.3 years (6.2 ttl pk-yrs) Types: Cigarettes Start date: 04/21/2012 Smokeless tobacco: Never Substance Use Topics Alcohol use: No Drug use: No BP 118/78 Pulse 88 Temp 36.6 ?C (97.8 ?F) (Tympanic) Resp 18 Wt 128.2 kg (282 lb 10.1 oz) LMP 01/21/2024 (Approximate) SpO2 97% BMI 43.84 kg/m? Review of Systems Constitutional: Negative for chills, fever and malaise/fatigue. HENT: Positive for congestion and sore throat. Negative for ear discharge, ear pain and sinus pain. Eyes: Negative for blurred vision, pain, discharge and redness. Respiratory: Positive for cough and wheezing. Negative for hemoptysis, sputum production, shortness of breath and stridor. Cardiovascular: Negative for chest pain. Gastrointestinal: Negative for abdominal pain, diarrhea, nausea and vomiting. Musculoskeletal: Negative for myalgias. Skin: Negative for itching and rash. Neurological: Positive for headaches. Negative for dizziness. Objective Physical Exam Constitutional: General: She is not in acute distress. Appearance: She is not diaphoretic. HENT: Head: Normocephalic. Jaw: No trismus, tenderness, swelling or pain on movement. Nose: Congestion present. Mouth/Throat: Mouth: Mucous membranes are moist. Pharynx: Oropharynx is clear. Uvula midline. No pharyngeal swelling, oropharyngeal exudate, posterior oropharyngeal erythema or uvula swelling. Eyes: Conjunctiva/sclera: Conjunctivae normal. Pupils: Pupils are equal, round, and reactive to light. Cardiovascular: Rate and Rhythm: Normal rate and regular rhythm. Heart sounds: Normal heart sounds. Pulmonary: Effort: Pulmonary effort is normal. No tachypnea, accessory muscle usage or respiratory distress. Breath sounds: No stridor. Wheezing present. No rhonchi or rales. Abdominal: General: There is no distension. Palpations: Abdomen is soft. Tenderness: There is no abdominal tenderness. There is no guarding or rebound. Musculoskeletal: Cervical back: Normal range of motion and neck supple. No edema, erythema, rigidity or tenderness. No pain with movement. Normal range of motion. Lymphadenopathy: Cervical: No cervical adenopathy. Skin: General: Skin is warm and dry. Neurological: Mental Status: She is alert and oriented to person, place, and time. ASSESSMENT/PLAN: 1. URI wi (more content not included)... Normal [facility] Pelvic w/ Transvaginalon Pelvic w/ Transvaginal [facility] Imaging Services [address] [place] [address] [id number] Pelvic w/ Transvaginal MR#: [id number] Acct: [id number] Name: GABRIELLE COOPER Rep #: [id number] : 1995 F 29 From: Samir harris MD PCP: Dr. Lenore Meier MD Status: REG CLI Study: Pelvic w/ Transvaginal Date of Exam: 07/21/24 Exam# [id number] Ordering Dr: Diane Vasquez COAGULATING DRYING SUPERVISOR COAGULATING DRYING SUPERVISOR -C PROCEDURE: PELVIC W/ TRANSVAGINAL REASON FOR EXAM: Follow-up for right ovarian cyst. TECHNIQUE: Transabdominal and transvaginal pelvic ultrasound COMPARISON: Comparison is made with prior study dated July 05, 2024. FINDINGS: Measurements: Uterus: 7.8 cm x 5 cm x 3.2 cm with a volume of 78.05 mL Endometrial Thickness: 6.7 mm Right Ovary: 3.3 cm x 2.6 cm x 3.1 cm with a volume of 32.4 mL. Left Ovary: 3.7 cm x 2.9 cm x 3.7 cm with a volume of 33.7 mL. TRANSABDOMINAL: Uterus: Unremarkable Endometrium: Unremarkable Right ovary: Residual 4.8 cm 3.8 cm x 2.5 cm right ovarian cyst. Left ovary: Unremarkable Transvaginal sonography was performed to better visualize the endometrium. TRANSVAGINAL: Uterus: Unremarkable Endometrium: Unremarkable Right ovary: Persistent 4.8 cm x 3.8 cm 2.5 cm right ovarian cyst. Left ovary: Unremarkable Other adnexal findings: None. Cul-de-sac: No free intraperitoneal fluid identified. Tenderness: US/Pelvic w/ Transvaginal IMPRESSION: Persistent 4.8 cm x 3.8 cm 2.5 cm right ovarian cyst. Reading Location: [place] [address] CC: BELLA Vasquez; Dr. Lenore Meier MD Project Engineering Manager: Signed Normal [facility] Absolute lymphocyte countOrd ered By: Lenore Meier on 06-30-2024 Lymphocytes Auto (Unsp spec) [#/Vol] 2.54 10*3/uL 0.83-4.51 [facility] Absolute neutrophil countOrd ered By: Lenore Meier on 06-30-2024 Neutrophils (Bld) [#/Vol] 9.0 10*3/uL High 2.0-7.7 [facility] Automated lymphocyte count a s percentage of total leukocytesOrdered By: Lenore Meier on 06-30-2024 Lymphocytes/100 WBC Auto (Unsp spec) 19.8 % 19-41 [facility] Basophil percentageOrdered B y: Lenore Meier on 06-30-2024 Basophils/100 WBC (Bld) 0.8 % 0-[address] [facility] CBC W/Diff, Automatedon 06-19 Absolute Lymph 2.54 X10 3/uL Normal 0.83-4.51 [facility] Comment on above: Performed By: #### L 501.9310, L500.4050, L100.0100, L503.6030, L501.9520 #### [facility] [address] [place], [address] Absolute Neut 9.0 X10 3/uL High 2.0-7.7 [facility] Comment on above: Performed By: #### L 501.9310, L500.4050, L100.0100, L503.6030, L501.9520 #### [facility] [address] [place], [address] Basophils/100 WBC (Bld) 0.8 % Normal 0-[address] [facility] Comment on above: Performed By: #### L 501.9310, L500.4050, L100.0100, L503.6030, L501.9520 #### [facility] [address] [place], [address] Eosinophils/100 WBC (Bld) 3.3 % Normal 0-5 [facility] Comment on above: Performed By: #### L 501.9310, L500.4050, L100.0100, L503.6030, L501.9520 #### [facility] [address] [place], [address] Erythrocyte distribution width (RBC) [Ratio] 13.9 % Normal 11.6-14.6 [facility] Comment on above: Performed By: #### L 501.9310, L500.4050, L100.0100, L503.6030, L501.9520 #### [facility] [address] [place], [address] Hematocrit (Bld) [Volume fraction] 40.1 % Normal 37-47 [facility] Comment on above: Performed By: #### L 501.9310, L500.4050, L100.0100, L503.6030, L501.9520 #### [facility] [address] [place], [address] Hemoglobin (Bld) [Mass/Vol] 13.1 g/dL Normal 12.0-15.0 [facility] Comment on above: Performed By: #### L 501.9310, L500.4050, L100.0100, L503.6030, L501.9520 #### [facility] [address] [place], [address] IG% 0.500 Normal 0.0-0.9 [facility] Comment on above: Result Comment: IG% - Immature Granulocytes (promyelocytes, myelocytes and metamyelocytes) > 1% indicates that a LEFT SHIFT is Present. Performed By: #### L 501.9310, L500.4050, L100.0100, L503.6030, L501.9520 #### [facility] [address] [place], [address] Lymphocytes/100 WBC (Bld) 19.8 % Normal 19-41 [facility] Comment on above: Performed By: #### L 501.9310, L500.4050, L100.0100, L503.6030, L501.9520 #### [facility] [address] [place], [address] MCH (RBC) [Entitic mass] 28.2 pg Normal 27.0-32.0 [facility] Comment on above: Performed By: #### L 501.9310, L500.4050, L100.0100, L503.6030, L501.9520 #### [facility] [address] [place], [address] MCHC (RBC) [Mass/Vol] 32.7 g/dL Normal 32-36 [facility] Comment on above: Performed By: #### L 501.9310, L500.4050, L100.0100, L503.6030, L501.9520 #### [facility] [address] [place], [address] MCV (RBC) [Entitic vol] 86.2 fL Normal 81-[address] [facility] Comment on above: Performed By: #### L 501.9310, L500.4050, L100.0100, L503.6030, L501.9520 #### [facility] [address] [place], [address] Monocytes/100 WBC (Bld) 5.7 % Normal 0-[address] [facility] Comment on above: Performed By: #### L 501.9310, L500.4050, L100.0100, L503.6030, L501.9520 #### [facility] [address] [place], [address] Neutrophils/100 WBC (Bld) 69.9 % Normal 47-70 [facility] Comment on above: Performed By: #### L 501.9310, L500.4050, L100.0100, L503.6030, L501.9520 #### [facility] [address] [place], [address] Nucleated RBC (Bld) [#/Vol] 0 10*3/uL Normal 0-5 [facility] Comment on above: Performed By: #### L 501.9310, L500.4050, L100.0100, L503.6030, L501.9520 #### [facility] [address] [place], [address] Platelet mean volume (Bld) [Entitic vol] 9.9 fL Normal 6.2-12.0 [facility] Comment on above: Performed By: #### L 501.9310, L500.4050, L100.0100, L503.6030, L501.9520 #### [facility] [address] [place], [address] Platelets (Bld) [#/Vol] 407 10*3/uL Normal 150-450 [facility] Comment on above: Performed By: #### L 501.9310, L500.4050, L100.0100, L503.6030, L501.9520 #### [facility] [address] [place], [address] RBC (Bld) [#/Vol] 4.65 10*6/uL Normal 4.2-5.4 [facility] Comment on above: Performed By: #### L 501.9310, L500.4050, L100.0100, L503.6030, L501.9520 #### [facility] [address] [place], [address] RDW SD 44.0 fl High 35.1-43.9 [facility] Comment on above: Performed By: #### L 501.9310, L500.4050, L100.0100, L503.6030, L501.9520 #### [facility] [address] [place], [address] WBC (Bld) [#/Vol] 12.8 10*3/uL High 4.4-11.0 [facility] Comment on above: Performed By: #### L 501.9310, L500.4050, L100.0100, L503.6030, L501.9520 #### [facility] [address] [place], [address] Calculated total iron bindin g capacityOrdered By: [facility] Zunildasteff on 06-30-2024 Total Iron Binding Capacity 320 ug/dL 250-450 [facility] Eosinophil percentageOrdered By: [facility] Mauroe on 06-30-2024 Eosinophils/100 WBC (Bld) 3.3 % 0-5 [facility] Erythrocyte distribution wid th ratioOrdered By: joseongbe Krishsteff on 06-30-2024 Erythrocyte distribution width (RBC) [Ratio] 13.9 % 11.6-14.6 [facility] Erythrocyte distribution wid th standard deviationOrdered By: Madinaadamaris Rutherfordpiasteff on 06-30-2024 Erythrocyte distribution width (RBC) [Entitic vol] 44.0 fL High 35.1-43.9 [facility] Erythrocyte distribution width (RBC) [Ratio] 44.0 fl High 35.1-43.9 [facility] Ferritinon 06-30-2024 Ferritin [Mass/Vol] 94 ng/mL Normal 22-378 [facility] Comment on above: Performed By: #### L 501.9310, L500.4050, L100.0100, L503.6030, L501.9520 #### [facility] [address] [place], [address] Hematocrit Auto (Bld) [Volum e fraction]Ordered By: Lenore Meier on 06-30-2024 Hematocrit (Bld) [Volume fraction] 40.1 % 37-47 [facility] Hemoglobin measurementOrdere d By: Lenore Meier on 06-30-2024 Hemoglobin (Bld) [Mass/Vol] 13.1 g/dL 12.0-15.0 [facility] Immature granulocytes/100 WB C Auto (Bld)Ordered By: Lenore Meier on 06-30-2024 Immature granulocytes/100 WBC (Bld) 0.500 % 0.0-0.9 [facility] Comment on above: IG% - Immature Granu locytes (promyelocytes, myelocytes and metamyelocytes) > 1% indicates that a LEFT SHIFT is Present. Internal Medicine Office Vis itojosee 06-30-2024 Internal Medicine Office Visit [facility] [address] [place] [address] [place] [address] OFFICE VISIT Date of Service: 06/30/24 MR#: [id number] Acct: [id number] Name: GABRIELLE COOPER Rep #: [id number] : 1995 Provider: Dr. Lenore chauhan MD Age/Sex: 29/F Location: [facility] Status: Signed Intake Vital Signs 03/02/24 12:09 06/30/24 15:38 Height 5 ft 7 in 5 ft 7 in Weight: 283 lb BMI 44.3 BP 142/80 H Blood Pressure Location Lt brachial Position Sitting Respiration 18 Pulse 105 H Pulse Source Monitor Temp 97.6 F L Temp Source Temporal Pulse Oximetry (%) 98 Oxygen Delivery Method room air Intake Visit Reasons: EST NEW PT - WC PT Chief Complaint: EST NEW PT- WC PT Is patient in pain?: No Allergies amoxicillin Allergy (Intermediate, Verified 06/30/24 15:39) Rash clindamycin Allergy (Verified 06/30/24 15:39) Rash Medications ???Medication ???Instructions ???Recorded ???Confirmed ???Type cholecalciferol (vitamin D3) 1,250 50,000 unit PO QWEEK 05/30/17 History mcg (50,000 unit) capsule levothyroxine 75 mcg tablet 75 mcg PO DAILY 05/30/17 06/30/24 History spironolactone 50 mg tablet 50 mg PO QAM 05/30/17 06/30/24 His tory ferrous sulfate 325 mg (65 mg 325 mg PO DAILY 12/26/23 06/30/24 History iron) tablet cetirizine 10 mg tablet (24Hour 10 mg PO DAILY 02/27/24 06/30/24 H istory Allergy) norethindrone (contraceptive) 0.35 0.35 mg PO QDAY #84 tabs 4 06/30/24 Rx mg tablet (Jacquelin) omeprazole 40 mg capsule,delayed 40 mg PO QDAY #60 caps 03/10/24 Rx release docusate sodium 100 mg capsule 100 mg PO QDAY #60 caps 05/07/24 0 06/30/24 Rx triamcinolone acetonide 0.1 % 1 applic topical BID PRN rash 06/1906/30/24 Rx topical cream #453.6 grams [facility] Medical History (Updated 06/30/24 @ 16:[address] Lenore Meier MD) Hypertension Dermatitis Hypersomnolence COVID-19 Rash Thyroid disease Low iron Heartburn Gastric reflux Smoker Bradycardia Vitamin D deficiency Iron deficiency Fatigue Anxiety Depression Hypothyroidism Body mass index [BMI] 45.0-49.9, adult Obesity VINEET I (cervical intraepithelial neoplasia I) Abnormal Pap smear of cervix PCOS (polycystic ovarian syndrome) Surgical History History of tonsillectomy Family History Grandfather Heart disease Mother Diabetes Grandmother Diabetes Social History (Updated 06/30/24 @ 15:41 by Bhavna Kelley LPN) adopted: No household members: family current occupational status: employed current occupation: [employer] Smoking Status: Current every day smoker (Patient smoked today.) tobacco type: cigarettes alcohol intake: never substance use type: does not use caffeine: Yes frequency: 3-4 times per week seatbelt use: always do you feel safe at home: Yes additional social history: single HPI HPI Chief Complaint: EST NEW PT- WC PT Details: GABRIELLE COOPER, is a 29 F who presents to the office today to establish care. Has some concerns. She reports rash which has been intermittent over the last couple of months. Noted that it flares up with amoxicillin. Has stopped any further use of amoxicillin. Has also noted increased rash on exposure to the sun. Tried an OTC antihistamine which was initially helpful but not completely. History of iron deficiency, currently on ferrous sulfate. She reports heavy menstrual bleeds. Has been on ferrous for many years. Recent labs reviewed and iron level still low. Has not tried iron infusions. She also reports sleeping for very long hours but still feeling tired when she wakes up. Had a sleep study done last year which was not suggestive of sleep apnea. Symptoms continue. Has not been seen by sleep specialist. Chronic history of hypertension, blood pressure today at 142/80 mmHg. She states that she has checked it at home and her readings on average range from 130 systolic to 150. History of tobacco abuse. Does not routinely exercise and eats a lot of fast foods. Currently at a BMI of 44.3. Other chronic medical conditions are stable. ROS Const Constitutional: No body ache, chills, excessive sweating, fatigue, fever(s), frequent falls, headache(s), snoring, weight change, sleep problems, abnormal sleep pattern or change in appetite Eyes Eyes: No blurry vision, change in vision, discharge, floaters, visual disturbances, eye pain or Light sensitivity ENT ENT: No abnormal hearing, ear or mastoid pain, tinnitus, balance problems, nosebleed/epistaxis, nasal congestion, headache(s), neck pain or sore throat Resp Respiratory: No cough, excessive phlegm production, pain on inspiration, shortness of breath, snoring or wheezing Cardi (more content not included)... Normal [facility] Iron (Unsp spec) [Mass/Mass] Ordered By: Lenore Meier on 06-30-2024 Iron [Mass/Vol] 68 ug/dL 50-170 [facility] Iron measurement (mass/mass) Ordered By: Lenore Meier on 06-30-2024 Iron (Unsp spec) [Mass/Mass] 68 ug/dL 50-170 [facility] Iron saturation [Mass fracti on]Ordered By: Lenore Maurosteff on 06-30-2024 Iron Saturation 21.0 % 13-59 [facility] Iron+Iron Binding Capacityon 06-30-2024 Iron [Mass/Vol] 68 ug/dL Normal 50-170 [facility] Comment on above: Performed By: #### L 501.9310, L500.4050, L100.0100, L503.6030, L501.9520 #### [facility] [address] [place], [address] IRON SATURATION 21.0 Normal 13-59 [facility] Comment on above: Performed By: #### L 501.9310, L500.4050, L100.0100, L503.6030, L501.9520 #### [facility] [address] [place], [address] TIBC 320 ug/dL Normal 250-450 [facility] Comment on above: Performed By: #### L 501.9310, L500.4050, L100.0100, L503.6030, L501.9520 #### [facility] [address] [place], [address] UIBC 252 ug/dL Normal 228-428 [facility] Comment on above: Performed By: #### L 501.9310, L500.4050, L100.0100, L503.6030, L501.9520 #### [facility] [address] [place], [address] Lymphocytes Auto (Unsp spec) [#/Vol]Ordered By: Franciscaaleydadiana Rutherfordpiasteff on 06-30-2024 Lymphocytes (Bld) [#/Vol] 2.54 10*3/uL 0.83-4.51 [facility] Lymphocytes/100 WBC Auto (Un sp spec)Ordered By: Franciscaaleydadiana Rutherfordpiae on 06-30-2024 Lymphocytes/100 WBC (Bld) 19.8 % 19-41 [facility] MCV (mean corpuscular volume ) determinationOrdered By: Lenore Mauroe on 06-30-2024 MCV (RBC) [Entitic vol] 86.2 fL 81-[address] [facility] Mean corpuscular hemoglobin (MCH) determinationOrdered By: Lenore Meier on 06-30-2024 MCH (RBC) [Entitic mass] 28.2 pg 27.0-32.0 [facility] Mean corpuscular hemoglobin concentration (MCHC) determinationOrdered By: Franciscashoshonediana Meier on 06-30-2024 MCHC (RBC) [Mass/Vol] 32.7 g/dL 32-36 [facility] Mean platelet volume determi nationOrdered By: Lenore Rutherfordpiasteff on 06-30-2024 Platelet mean volume (Bld) [Entitic vol] 9.9 fL 6.2-12.0 [facility] Monocyte percentageOrdered B y: Lenore Mauroe on 06-30-2024 Monocytes/100 WBC (Bld) 5.7 % 0-[address] [facility] Neutrophil percentageOrdered By: Lenore Meier on 06-30-2024 Neutrophils/100 WBC (Bld) 69.9 % 47-70 [facility] No Panel InformationOrdered By: Lenore Meier on 06-30-2024 Unsaturated Iron Binding Capacity 252 ug/dL 228-428 [facility] Nucleated red blood cell per centageOrdered By: Lenore Mauroe on 06-30-2024 Nucleated RBC/100 WBC (Bld) [Ratio] 0 % 0-5 [facility] Platelet countOrdered By: Madina joseneville Meier on 06-30-2024 Platelets (Bld) [#/Vol] 407 10*3/uL 150-450 [facility] RBC Auto (Bld) [#/Vol]Ordere d By: Lenore Krishnino on 06-30-2024 RBC (Bld) [#/Vol] 4.65 10*6/uL 4.2-5.4 [facility] Serum or plasma ferritin filipe surement (mass/volume)Ordered By: Lenore Meier on 06-30-2024 Ferritin [Mass/Vol] 94 ng/mL 22-378 [facility] Serum or plasma iron saturat ion measurement (mass fraction)Ordered By: Lenore Meier on 06-30-2024 Iron saturation [Mass fraction] 21.0 % 13-59 [facility] White blood cell (WBC) count Ordered By: Madinajoseshoshonediana Rutherfordpiasteff on 06-30-2024 WBC (Bld) [#/Vol] 12.8 10*3/uL High 4.4-11.0 [facility] Gastroenterology Visit Repor ton 05-07-2024 Gastroenterology Visit Report [facility] [address] [place] [address] OFFICE VISIT Date of Service: 05/07/24 MR#: [id number] Acct: [id number] Name: GABRIELLE COOPER Rep #: [id number] : 1995 Provider: AKI Seaman Age/Sex: 28/F Location: [facility] Status: Signed Intake Vital Signs 01/28/24 09:29 03/02/24 12:09 Height 5 ft 7 in 5 ft 7 in Intake Visit Reasons: 3 M FU Chief Complaint: constipation Allergies clindamycin Allergy (Verified 03/02/24 12:09) Rash Nurse's Note: OV 05.06.24 Pt here for f/u and reports constipation, cramping, bloating and indigestion. Pt reports a formed BM daily. Pt was recently on Amoxicillin and noticed her BM seemed to be normal during the course of ATB then when she finished her BM went back to foul smelly and hard. Continues omeprazole daily. [facility] Medical History COVID-19 Rash Thyroid disease Low iron Heartburn Gastric reflux Smoker Bradycardia Vitamin D deficiency Iron deficiency Fatigue Anxiety Depression Hypothyroidism Body mass index [BMI] 45.0-49.9, adult Obesity VINEET I (cervical intraepithelial neoplasia I) Abnormal Pap smear of cervix PCOS (polycystic ovarian syndrome) Surgical History History of tonsillectomy Family History Grandfather Heart disease Mother Diabetes Grandmother Diabetes Social History current occupational status: employed current occupation: [employer] Smoking Status: Current every day smoker (Patient smoked today.) tobacco type: cigarettes alcohol intake: never substance use type: does not use caffeine: Yes what type of physical activity do you participate in: none frequency: 3-4 times per week seatbelt use: always do you feel safe at home: Yes additional social history: single HPI HPI Chief Complaint: constipation Details: GABRIELLE COOPER, is a 28 F who presents to the office today for f/u. [facility] ED 9.2.14; abd pain and dark stool. normal work up. CT abd/pelvis 9..24;CT abdomen pelvis 9..24; Possible hydrosalpinx on the right. Otherwise no acute disease. Recommend pelvic ultrasound. BGI established 10.15.24 w/ abd/epigastric pain and pressure for one month. EGD 03.02.24; - Normal esophagus. - Bilious gastric fluid. - Erythematous mucosa in the gastric body. Biopsied. - Erythematous duodenopathy. GES 12.23.24; 53 minutes normal OV 1.17.25 Pt has been doing well. She is no longer having abd/epigastric pain. She has been on omeprazole 40 mg which she feels has helped. She has also been adhering to a gastroparesis diet. She is having new issues with constipation. Her stools are large an much harder to pass than usual. She is having a bm once a day or every couple of days. She was on amoxicillin recently which helped with her bowels. She is not taking any stool softeners or laxatives. ROS Const Constitutional: Positive for fatigue; No fever(s) or weight change ENT ENT: No difficulty swallowing Gastro GI: Positive for change in bowel habits, constipation and heartburn; No abdominal pain, belching, bloating, change in stool character, coffee ground emesis, cramping, diarrhea, difficulty swallowing, feeling full early, excessive flatus, incontinent of stools, Vomiting blood/hematemesis, Blood in stool, loose stools, Black,tarry stools, nausea/dyspepsia, pain with swallowing, vomiting or other Musc Musculoskeletal: No joint pain Skin Skin: Positive for dry skin and rash; No yellowing of the eye or itchy eyes Psych Psychiatric: No anxiety and No depression Endo Endocrine: Positive for fatigue; No weight change Aller/Imm Allergy/Immunologic: No itchy eyes Brett/Lymp Hematologic/Lymphatic: No easy bleeding or easy bruising Exam Const General: cooperative and comfortable Nutritional Appearance: average body habitus and well nourished [facility] Head: normal to inspection Ears: hearing grossly normal bilaterally Nose: external nose normal Face and sinus: normal facial exam Eyes General: appearance normal, both eyes and all related structures Neck Neck: normal visual inspection Chest Chest palpation inspection: normal inspection of the chest and normal palpation of entire chest wall Resp Effort Inspection: normal respiratory effort Auscultation: Bilateral: Clear to Auscultation Cardio Palpation: normal PMI Rate: regular rate Rhythm: regular rhythm GI Inspection: normal to inspection Auscultation: normal bowel sounds Percussion: normal to percussion Palpation: no hepatosplenomegaly Skin General: no rashes or lesions noted Neuro General: patient alert Ex (more content not included)... Normal [facility] Absolute neutrophil countOrd ered By: [facility] on 05-06-2024 Neutrophils (Bld) [#/Vol] 7.8 10*3/uL High 2.0-7.7 [facility] Albumin to globulin ratioOrd ered By: [facility] on 05-06-2024 Albumin/Globulin [Mass ratio] 0.9 {ratio} 0.9-2.4 [facility] Basophil percentageOrdered B y: [facility] on 05-06-2024 Basophils/100 WBC (Bld) 0.8 % 0-[address] [facility] Bilirubin, totalOrdered By: [facility] on 05-06-2024 Bilirubin [Mass/Vol] 0.10 mg/dL Low 0.20-1.00 [facility] Comment on above: For patients on eltr ombopag therapy, use of Dimension [place] TBIL is not recommended. Blood urea nitrogen (BUN)/cr eatinine ratioOrdered By: Kathy Welsh on 05-06-2024 Urea nitrogen/Creatinine [Mass ratio] 18.2 mg/mg 10-20 [facility] CBC W/Diff, Automatedon 04-21 Absolute Lymph 4.60 X10 3/uL High 0.83-4.51 [facility] Comment on above: Performed By: #### L 501.9310, L500.4050, L100.0100, L503.6030, L501.9520 #### [facility] [address] [place], [address] Absolute Neut 7.8 X10 3/uL High 2.0-7.7 [facility] Comment on above: Performed By: #### L 501.9310, L500.4050, L100.0100, L503.6030, [id number] #### [facility] [address] [place], [address] Basophils/100 WBC (Bld) 0.8 % Normal 0-[address] [facility] Comment on above: Performed By: #### L 501.9310, L500.4050, L100.0100, L503.6030, [id number] #### [facility] [address] [place], [address] Eosinophils/100 WBC (Bld) 3.1 % Normal 0-5 [facility] Comment on above: Performed By: #### L 501.9310, L500.4050, L100.0100, L503.6030, [id number] #### [facility] [address] [place], [address] Erythrocyte distribution width (RBC) [Ratio] 13.6 % Normal 11.6-14.6 [facility] Comment on above: Performed By: #### L 501.9310, L500.4050, L100.0100, L503.6030, [id number] #### [facility] [address] [place], [address] Hematocrit (Bld) [Volume fraction] 37.8 % Normal 37-47 [facility] Comment on above: Performed By: #### L 501.9310, L500.4050, L100.0100, L503.6030, L501.9520 #### [facility] [address] [place], [address] Hemoglobin (Bld) [Mass/Vol] 12.3 g/dL Normal 12.0-15.0 [facility] Comment on above: Performed By: #### L 501.9310, L500.4050, L100.0100, L503.6030, L501.9520 #### [facility] [address] [place], [address] IG% 0.200 Normal 0.0-0.9 [facility] Comment on above: Result Comment: IG% - Immature Granulocytes (promyelocytes, myelocytes and metamyelocytes) > 1% indicates that a LEFT SHIFT is Present. Performed By: #### L 501.9310, L500.4050, L100.0100, L503.6030, L501.9520 #### [facility] [address] [place], [address] Lymphocytes/100 WBC (Bld) 33.7 % Normal 19-41 [facility] Comment on above: Performed By: #### L 501.9310, L500.4050, L100.0100, L503.6030, L501.9520 #### [facility] [address] [place], [address] MCH (RBC) [Entitic mass] 27.6 pg Normal 27.0-32.0 [facility] Comment on above: Performed By: #### L 501.9310, L500.4050, L100.0100, L503.6030, L501.9520 #### [facility] [address] [place], [address] MCHC (RBC) [Mass/Vol] 32.5 g/dL Normal 32-36 [facility] Comment on above: Performed By: #### L 501.9310, L500.4050, L100.0100, L503.6030, L501.9520 #### [facility] [address] [place], [address] MCV (RBC) [Entitic vol] 84.9 fL Normal 81-99 [facility] Comment on above: Performed By: #### L 501.9310, L500.4050, L100.0100, L503.6030, L501.9520 #### [facility] [address] [place], [address] Monocytes/100 WBC (Bld) 5.2 % Normal 0-10 [facility] Comment on above: Performed By: #### L 501.9310, L500.4050, L100.0100, L503.6030, L501.9520 #### [facility] [address] [place], [address] Neutrophils/100 WBC (Bld) 57.0 % Normal 47-70 [facility] Comment on above: Performed By: #### L 501.9310, L500.4050, L100.0100, L503.6030, L501.9520 #### [facility] [address] [place], [address] Nucleated RBC (Bld) [#/Vol] 0 10*3/uL Normal 0-5 [facility] Comment on above: Performed By: #### L 501.9310, L500.4050, L100.0100, L503.6030, L501.9520 #### [facility] [address] [place], [address] Platelet mean volume (Bld) [Entitic vol] 9.7 fL Normal 6.2-12.0 [facility] Comment on above: Performed By: #### L 501.9310, L500.4050, L100.0100, L503.6030, L501.9520 #### [facility] [address] [place], [address] Platelets (Bld) [#/Vol] 416 10*3/uL Normal 150-450 [facility] Comment on above: Performed By: #### L 501.9310, L500.4050, L100.0100, L503.6030, L501.9520 #### [facility] [address] [place], [address] RBC (Bld) [#/Vol] 4.45 10*6/uL Normal 4.2-5.4 [facility] Comment on above: Performed By: #### L 501.9310, L500.4050, L100.0100, L503.6030, L501.9520 #### [facility] [address] [place], [address] RDW SD 42.5 fl Normal 35.1-43.9 [facility] Comment on above: Performed By: #### L 501.9310, L500.4050, L100.0100, L503.6030, L501.9520 #### [facility] [address] [place], [address] WBC (Bld) [#/Vol] 13.7 10*3/uL High 4.4-11.0 [facility] Comment on above: Performed By: #### L 501.9310, L500.4050, L100.0100, L503.6030, L501.9520 #### [facility] [address] [place], [address] Carbon dioxide measurementOr dered By: Zebulun Beam on 05-06-2024 CO2 [Moles/Vol] 26.0 mmol/L 21.0-32.0 [facility] Chloride measurementOrdered By: Zebulun Beam on 05-06-2024 Chloride [Moles/Vol] 107 mmol/L 98-107 [facility] Comprehensive Metabolic Prof ilon 05-06-2024 Albumin [Mass/Vol] 3.4 g/dL Normal 3.2-5.0 [facility] Comment on above: Performed By: #### L 501.9310, L500.4050, L100.0100, L503.6030, L501.9520 #### [facility] [address] [place], [address] Albumin/Globulin [Mass ratio] 0.9 {ratio} Normal 0.9-2.4 [facility] Comment on above: Performed By: #### L 501.9310, L500.4050, L100.0100, L503.6030, L501.9520 #### [facility] [address] [place], [address] ALK P 93 U/L Normal 45-117 [facility] Comment on above: Performed By: #### L 501.9310, L500.4050, L100.0100, L503.6030, L501.9520 #### [facility] [address] [place], [address] ALT [Catalytic activity/Vol] 15 U/L Normal 13-56 [facility] Comment on above: Performed By: #### L 501.9310, L500.4050, L100.0100, L503.6030, L501.9520 #### [facility] [address] [place], [address] AST [Catalytic activity/Vol] 12 U/L Low 15-37 [facility] Comment on above: Performed By: #### L 501.9310, L500.4050, L100.0100, L503.6030, L501.9520 #### [facility] [address] [place], [address] Bilirubin [Mass/Vol] 0.10 mg/dL Low 0.20-1.00 [facility] Comment on above: Result Comment: For patients on eltrombopag therapy, use of Dimension [place] TBIL is not recommended. Performed By: #### L 501.9310, L500.4050, L100.0100, L503.6030, L501.9520 #### [facility] [address] [place], [address] BUN/CRE 18.2 RATIO Normal 10-20 [facility] Comment on above: Performed By: #### L 501.9310, L500.4050, L100.0100, L503.6030, L501.9520 #### [facility] [address] [place], [address] CA,Total 9.1 mg/dL Normal 8.5-10.1 [facility] Comment on above: Performed By: #### L 501.9310, L500.4050, L100.0100, L503.6030, L501.9520 #### [facility] [address] [place], [address] Chloride [Moles/Vol] 107 mmol/L Normal 98-107 [facility] Comment on above: Performed By: #### L 501.9310, L500.4050, L100.0100, L503.6030, L501.9520 #### [facility] [address] [place], [address] CO2 [Moles/Vol] 26.0 mmol/L Normal 21.0-32.0 [facility] Comment on above: Performed By: #### L 501.9310, L500.4050, L100.0100, L503.6030, L501.9520 #### [facility] [address] [place], [address] Creatinine [Mass/Vol] 0.66 mg/dL Normal 0.55-1.02 [facility] Comment on above: Result Comment: The validity of the calculated GFR GFRAA in patients over 70 years has not been determined. Clinical correlation is essential. Performed By: #### L 501.9310, L500.4050, L100.0100, L503.6030, L501.9520 #### [facility] [address] [place], [address] EST GFR - AA 137 mL/min Normal >60 [facility] Comment on above: Result Comment: Afri can Malagasy GFR Calc Performed By: #### L 501.9310, L500.4050, L100.0100, L503.6030, L501.9520 #### [facility] [address] [place], [address] GAP 6 Normal 5-15 [facility] Comment on above: Performed By: #### L 501.9310, L500.4050, L100.0100, L503.6030, L501.9520 #### [facility] [address] [place], [address] GFR/1.73 sq M.predicted among non-blacks MDRD (S/P/Bld) [Vol rate/Area] 113 mL/min/{1.73_m2} Normal >60 [facility] Comment on above: Result Comment: Non- GFR Calc Performed By: #### L 501.9310, L500.4050, L100.0100, L503.6030, L501.9520 #### [facility] [address] [place], [address] Globulin (S) [Mass/Vol] 3.8 g/dL Normal 2.2-4.2 [facility] Comment on above: Performed By: #### L 501.9310, L500.4050, L100.0100, L503.6030, L501.9520 #### [facility] [address] [place], [address] Glucose [Mass/Vol] 78 mg/dL Normal 74-106 [facility] Comment on above: Performed By: #### L 501.9310, L500.4050, L100.0100, L503.6030, L501.9520 #### [facility] [address] [place], [address] Potassium [Moles/Vol] 3.8 mmol/L Normal 3.5-5.1 [facility] Comment on above: Performed By: #### L 501.9310, L500.4050, L100.0100, L503.6030, L501.9520 #### [facility] [address] [place], [address] Sodium [Moles/Vol] 139 mmol/L Normal 136-145 [facility] Comment on above: Performed By: #### L 501.9310, L500.4050, L100.0100, L503.6030, L501.9520 #### [facility] [address] [place], [address] T PROT 7.2 g/dL Normal 6.4-8.2 [facility] Comment on above: Performed By: #### L 501.9310, L500.4050, L100.0100, L503.6030, L501.9520 #### [facility] [address] [place], [address] Urea nitrogen [Mass/Vol] 12 mg/dL Normal 7-18 [facility] Comment on above: Performed By: #### L 501.9310, L500.4050, L100.0100, L503.6030, L501.9520 #### [facility] [place], [address] Eosinophil percentageOrdered By: [facility] 05-[facility]24 Eosinophils/100 WBC (Bld) 3.1 % 0-5 [facility] Erythrocyte distribution wid th ratioOrdered By: [facility] on 05-06-2024 Erythrocyte distribution width (RBC) [Ratio] 13.6 % 11.6-14.6 [facility] Erythrocyte distribution wid th standard deviationOrdered By: [facility] on 05-06-2024 Erythrocyte distribution width (RBC) [Entitic vol] 42.5 fL 35.1-43.9 [facility] Estimated glomerular filtrat ion rate (GFR) AmericanOrdered By: [facility] on 05-06-2024 Estimated GFR (MDRD) Amer 137 mL/min >60 [facility] Comment on above: GFR Calc Glomerular filtration rate ( GFR) estimationOrdered By: [facility] on 05-06-2024 Estimated GFR (MDRD) Non-Af Amer 113 mL/min >60 [facility] Comment on above: Non- GFR Calc Glucose measurementOrdered B y: [facility] on 05-06-2024 Glucose [Mass/Vol] 78 mg/dL 74-106 [facility] Hematocrit Auto (Bld) [Volum e fraction]Ordered By: [facility] on 05-06-2024 Hematocrit (Bld) [Volume fraction] 37.8 % 37-47 [facility] Hemoglobin measurementOrdere d By: [facility] on 05-06-2024 Hemoglobin (Bld) [Mass/Vol] 12.3 g/dL 12.0-15.0 [facility] Immature granulocytes/100 WB C Auto (Bld)Ordered By: [facility] on 05-06-2024 Immature granulocytes/100 WBC (Bld) 0.200 % 0.0-0.9 [facility] Comment on above: IG% - Immature Granu locytes (promyelocytes, myelocytes and metamyelocytes) > 1% indicates that a LEFT SHIFT is Present. Iron (Unsp spec) [Mass/Mass] Ordered By: Zebulun Beam on 05-06-2024 Iron [Mass/Vol] 24 ug/dL Low 50-170 [facility] Iron saturation [Mass fracti on]Ordered By: Zebulun Beam on 05-06-2024 Iron Saturation 5.7 % Low 15.0-55.0 [facility] Iron+Iron Binding Capacityon 05-06-2024 Iron [Mass/Vol] 24 ug/dL Low 50-170 [facility] Comment on above: Performed By: #### L 501.9310, L500.4050, L100.0100, L503.6030, L501.9520 #### [facility] [address] [place], [address] IRON SATURATION 5.7 Low 15.0-55.0 [facility] Comment on above: Performed By: #### L 501.9310, L500.4050, L100.0100, L503.6030, L501.9520 #### [facility] [address] [place], [address] TIBC 422 ug/dL Normal 250-450 [facility] Comment on above: Performed By: #### L 501.9310, L500.4050, L100.0100, L503.6030, L501.9520 #### [facility] [address] [place], [place], [id number] Laboratory - Chemistry and C hemistry - challengeOrdered By: Zebulun Beam on 05-06-2024 AST [Catalytic activity/Vol] 12 U/L Low 15-37 [facility] Lymphocytes Auto (Unsp spec) [#/Vol]Ordered By: Zebulun Beam on 05-06-2024 Lymphocytes (Bld) [#/Vol] 4.60 10*3/uL High 0.83-4.51 [facility] Lymphocytes/100 WBC Auto (Un sp spec)Ordered By: Zebulun Beam on 05-06-2024 Lymphocytes/100 WBC (Bld) 33.7 % 19-41 [facility] MCV (mean corpuscular volume ) determinationOrdered By: Zebulun Beam on 05-06-2024 MCV (RBC) [Entitic vol] 84.9 fL 81-[address] [facility] Mean corpuscular hemoglobin (MCH) determinationOrdered By: Zebulun Beam on 05-06-2024 MCH (RBC) [Entitic mass] 27.6 pg 27.0-32.0 [facility] Mean corpuscular hemoglobin concentration (MCHC) determinationOrdered By: Zebulun Beam on 05-06-2024 MCHC (RBC) [Mass/Vol] 32.5 g/dL 32-36 [facility] Mean platelet volume determi nationOrdered By: Zebulun Beam on 05-06-2024 Platelet mean volume (Bld) [Entitic vol] 9.7 fL 6.2-12.0 [facility] Monocyte percentageOrdered B y: Zebulun Beam on 05-06-2024 Monocytes/100 WBC (Bld) 5.2 % 0-[address] [facility] Neutrophil percentageOrdered By: Zebulun Beam on 05-06-2024 Neutrophils/100 WBC (Bld) 57.0 % 47-70 [facility] Nucleated red blood cell per centageOrdered By: Zebulun Beam on 05-06-2024 Nucleated RBC/100 WBC (Bld) [Ratio] 0 % 0-5 [facility] Platelet countOrdered By: Min pepperun Beam on 05-06-2024 Platelets (Bld) [#/Vol] 416 10*3/uL 150-450 [facility] Potassium measurementOrdered By: Zebulun Beam on 05-06-2024 Potassium [Moles/Vol] 3.8 mmol/L 3.5-5.1 [facility] RBC Auto (Bld) [#/Vol]Ordere d By: Zebulun Beam on 05-06-2024 RBC (Bld) [#/Vol] 4.45 10*6/uL 4.2-5.4 [facility] Serum anion gap measurementO rdered By: Zebulun Beam on 05-06-2024 Anion gap [Moles/Vol] 6 mmol/L 5-15 [facility] Serum globulin measurementOr dered By: Kathy Welsh on 05-06-2024 Globulin (S) [Mass/Vol] 3.8 g/dL 2.2-4.[address] [facility] Serum or plasma alanine yanez otransferase (ALT) measurementOrdered By: Kathy Beam on 05-06-2024 ALT [Catalytic activity/Vol] 15 U/L 13-56 [facility] Serum or plasma albumin teo urement (mass/volume)Ordered By: Kathy Beam on 05-06-2024 Albumin [Mass/Vol] 3.4 g/dL 3.2-5.0 [facility] Serum or plasma alkaline alberto sphatase measurementOrdered By: Kathy Welsh on 05-06-2024 ALP [Catalytic activity/Vol] 93 U/L 45-117 [facility] Serum or plasma calcium teo urement (mass/volume)Ordered By: Kathy Welsh on 05-06-2024 Calcium [Mass/Vol] 9.1 mg/dL 8.5-10.1 [facility] Serum or plasma creatinine m easurement (mass/volume)Ordered By: Kathy Welsh on 05-06-2024 Creatinine [Mass/Vol] 0.66 mg/dL 0.55-1.02 [facility] Comment on above: The validity of the calculated GFR & GFRAA in patients over 70 years has not been determined. Clinical correlation is essential. Serum or plasma thyroxine (T 4) measurement (mass/volume)Ordered By: Kathy Welsh on 05-06-2024 T4 [Mass/Vol] 12.4 ug/dL 4.8-13.9 [facility] Serum or plasma urea nitroge n measurement (mass/volume)Ordered By: Kathy Welsh on 05-06-2024 Urea nitrogen [Mass/Vol] 12 mg/dL 7-18 [facility] Sodium levelOrdered By: Flavio Welsh on 05-06-2024 Sodium [Moles/Vol] 139 mmol/L 136-145 [facility] T4 Total, Thyroxinon 025 T4 [Mass/Vol] 12.4 ug/dL Normal 4.8-13.9 [facility] Comment on above: Performed By: #### L 501.9310, L500.4050, L100.0100, L503.6030, L501.9520 #### [facility] [address] [place], [place], [address] TIBCOrdered By: Kathy Beam on 05-06-2024 Total Iron Binding Capacity 422 ug/dL 250-450 [facility] TSH QnOrdered By: Kathy Be am on 05-06-2024 Thyroid Stimulating Hormone (TSH) 2.640 uIU/mL 0.358-3.740 [facility] Thyroid Stim Hormone (TSH)on 05-06-2024 TSH 2.640 uIU/mL Normal 0.358-3.740 [facility] Comment on above: Performed By: #### L 501.9310, L500.4050, L100.0100, L503.6030, L501.9520 #### [facility] [address] [place], [address] Total proteinOrdered By: Simone Welsh on 05-06-2024 Protein [Mass/Vol] 7.2 g/dL 6.4-8.2 [facility] White blood cell (WBC) count Ordered By: Kathy Welsh on 05-06-2024 WBC (Bld) [#/Vol] 13.7 10*3/uL High 4.4-11.0 [facility] Gastric Emptying Studyon Gastric Emptying Study [facility] Imaging Services [address] [place] [address] [id number] Gastric Emptying Study MR#: [id number] Acct: [id number] Name: GABRIELLE COOPER Rep #: [id number] : 1995 F 28 From: Thierno Mitchell PCP: ANSELMO Irene, [employer]-C Status: REG CLI Study: Gastric Emptying Study Date of Exam: 04/12/24 Exam# [id number] Ordering Dr: Keren Shields [id number] CLINICAL: 28-year-old female with history of epigastric pain. SEMI-SOLID PHASE 99m Tc SULFUR COLLOID GASTRIC EMPTYING STUDY COMPARISON: None available FINDINGS: The patient was administered 1.1 mCi of 99m Tc sulfur colloid mixed with oatmeal and consumed per os. Image acquisitions in the anterior-posterior projections were obtained for 60 minutes. There is prompt visualization of the stomach. There is no gastroesophageal reflux identified. The T ? linear fit was calculated to be 53.72 minutes, (Normal: 12-56 minutes). NM/Gastric Emptying Study IMPRESSION: 1. NORMAL 99m Tc sulfur colloid semi-solid phase (oatmeal) gastric emptying imaging examination. A. There is upper limits of normal and preserved semi-solid phase gastric emptying compared to normal controls with maintained first order kinetics throughout all components of the examination. (Augusto et al, J Nucl Med Tech 38: 186, 2010). 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 Subjective Gabrielle Cooper is a 28 year old female. HPI Presents with a chief complaint of right lower tooth pain over the past 4 days. She has had some drainage from it. She has had tooth infections previously. She does have a dental appointment in 2 days for [facility]. No fevers or chills. Review of Systems Constitutional: Negative. HENT: Positive for dental problem. Respiratory: Negative. Cardiovascular: Negative. Genitourinary: Negative. Musculoskeletal: Negative. All other systems reviewed and are negative. PAST MEDICAL HISTORY Diagnosis Date Hypothyroidism PCOS (polycystic ovarian syndrome) Pre-diabetes Current Outpatient Medications Medication Sig Dispense Refill cholecalciferol, Vitamin D3, (VITAMIN D3) 1,250 mcg (50,000 unit) cap capsule Take 1 capsule by mouth one time a week. pantoprazole DR (PROTONIX) 40 mg tablet Take 1 tablet by mouth every afternoon. spironolactone (ALDACTONE) 50 mg tablet Take 50 mg by mouth once daily. ferrous sulfate 325 mg (65 mg iron) tablet Take 1 tablet by mouth once daily. Norethindrone, Contraceptive, 0.35 mg tablet TAKE 1 TABLET BY MOUTH EVERY DAY. START DAY 1 OF MENSTRUAL CYCLE CALCIUM CARBONATE/VITAMIN D3 (VITAMIN D-3 ORAL) Take by mouth. levothyroxine (SYNTHROID) 75 mcg tablet Take 1 tablet by mouth once daily. amoxicillin-clavulanat e potassium (AUGMENTIN) 875-125 mg per tablet Take 1 tablet by mouth two times a day for 7 days. 14 tablet 0 guaiFENesin (MUCINEX) 600 mg 12 hr tablet Take 2 tablets by mouth twice daily. (Patient not taking: Reported on 06/28/2023) 40 tablet 0 ibuprofen (MOTRIN) 600 mg tablet Take 1 tablet by mouth every 6 hours as needed for Pain. (Patient not taking: Reported on 02/06/2024) 20 tablet 0 METFORMIN HCL (METFORMIN ORAL) Take by mouth. (Patient not taking: Reported on 02/06/2024) No current facility-administered medications for this visit. PAST SURGICAL HISTORY Procedure Laterality Date TONSILLECTOMY AND ADENOIDECTOMY HX FAMILY HISTORY Problem Relation Age of Onset Diabetes Mother Social History Tobacco Use Smoking status: Every Day Current packs/day: 0.50 Average packs/day: 0.5 packs/day for 11.9 years (6.0 ttl pk-yrs) Types: Cigarettes Start date: 04/21/2012 Smokeless tobacco: Never Substance Use Topics Alcohol use: No Drug use: No Objective BP 118/68 Pulse 88 Temp 36.8 ?C (98.3 ?F) Resp 16 Wt 125.3 kg (276 lb 3.8 oz) LMP 01/21/2024 (Approximate) SpO2 98% BMI 42.85 kg/m? Physical Exam Vitals reviewed. Constitutional: Appearance: Normal appearance. HENT: Head: Normocephalic and atraumatic. Mouth/Throat: Comments: Patient has some mild gumline swelling of tooth #29 and 30. Dental decay and cracked tooth noted. Skin: General: Skin is warm and dry. Neurological: Mental Status: She is alert. Assessment and Plan ASSESSMENT/PLAN: 1. Dental infection - ICD9: 522.4, ICD10: K04.7 Will treat with Augmentin. Follow-up with dentist. Patient agreeable. Beto Dobson PA-C Allergies As of Date: 03/29/2024 Noted Allergy Reaction CLINDAMYCIN 04/18/2016 2 - Rash Date Reviewed: 03/29/2024 Reviewed by: Esther Gentile MA - Fully Assessed Reason for Visit: Dental Problem [31] Cmt: right bottom tooth pain x 4 days Primary Visit Diagnosis:Dental infection [K04.7] Order(s):amoxicillin-c lavulanate potassium (AUGMENTIN) 875-125 mg per tabletTake 1 tablet by mouth two times a day for 7 days.Disp: 14 tabletRfl: 0 Prescriptions as of 03/29/2024 - amoxicillin-clavulanat e potassium (AUGMENTIN) 875-125 mg per tablet Take 1 tablet by mouth two times a day for 7 days. - cholecalciferol, Vitamin D3, (VITAMIN D3) 1,250 mcg (50,000 unit) cap capsule Take 1 capsule by mouth one time a week. - pantoprazole DR (PROTONIX) 40 mg tablet Take 1 tablet by mouth every afternoon. - spironolactone (ALDACTONE) 50 mg tablet Take 50 mg by mouth once daily. - ferrous sulfate 325 mg (65 mg iron) tablet Take 1 tablet by mouth once daily. - Norethindrone, Contraceptive, 0.35 mg tablet TAKE 1 TABLET BY MOUTH EVERY DAY. START DAY 1 OF MENSTRUAL CYCLE - guaiFENesin (MUCINEX) 600 mg 12 hr tablet Take 2 tablets by mouth twice daily. - ibuprofen (MOTRIN) 600 mg tablet Take 1 tablet by mouth every 6 hours as needed for Pain. - METFORMIN HCL (METFORMIN ORAL) Take by mouth. - CALCIUM CARBONATE/VITAMIN D3 (VITAMIN D-3 ORAL) Take by mouth. - levothyroxine (SYNTHROID) 75 mcg tablet Take 1 t (more content not included)... Normal [facility] Office Visit Reporton 2023 Office Visit Report [facility] [address] [place] [address] OFFICE VISIT Date of Service: 03/22/24 MR#: [id number] Acct: [id number] Patient: GABRIELLE COOPER Rep #: [id number] : 1995 Provider: AKI Zamudio Age/Sex: 28/F Location: [facility] Status: Signed Intake Vital Signs 03/02/24 12:09 Height 5 ft 7 in Intake Visit Reasons: PE NON DOT DRUG SCREEN/ DOMETIC Chief Complaint: Annual Allergies clindamycin Allergy (Verified 03/02/24 12:09) Rash Office Procedures [facility] Billing Sheet Testing Pre-Employment Drug Screen: Yes 03/24/24 0749 Date Agapito PRABHAKAR Cosigner Signature: Date (if applicable) CC: Normal [facility] PAP I-G w/rfx hrHPV-Aptimaon 03-11-2024 ADEQ Comment Normal . [facility] Comment on above: Order Comment: Speci men Comment: [id number] Specimen Comment: No. of containers..01 ThinPrep Vial Result Comment: Sati sfactory for evaluation. Endocervical and/or squamous metaplastic cells (endocervical component) are present. Performed By: #### L 7400.0353 #### [facility] [address] [place], [address] COMM . Normal . [facility] Comment on above: Order Comment: Speci men Comment: [id number] Specimen Comment: No. of containers..01 ThinPrep Vial Performed By: #### L 7400.0353 #### [facility] [address] [place], [address] COMMENT Comment Normal . [facility] Comment on above: Order Comment: Speci men Comment: [id number] Specimen Comment: No. of containers..01 ThinPrep Vial Result Comment: This liquid based ThinPrep(R) pap test was screened with the use of an image guided system. Performed By: #### L 7400.0353 #### [facility] [address] [place], [address] DIAG Comment Normal . [facility] Comment on above: Order Comment: Speci men Comment: [id number] Specimen Comment: No. of containers..01 ThinPrep Vial Result Comment: NEGA TIVE FOR INTRAEPITHELIAL LESION OR MALIGNANCY. Performed By: #### L 7400.0353 #### [facility] [address] [place], [address] HPV RFLX Comment Normal . [facility] Comment on above: Order Comment: Speci men Comment: [id number] Specimen Comment: No. of containers..01 ThinPrep Vial Result Comment: The HPV DNA reflex criteria were not met with this specimen result therefore, no HPV testing was performed. Performed at: [address] [id number] Reel Cart Operator: Elaine Lorenz MD, Phone: [phone] Performed By: #### L 7400.0353 #### [facility] [address] [place], [address] PAPSMR Comment Normal . [facility] Comment on above: Order Comment: Speci men Comment: [id number] Specimen Comment: No. of containers..01 ThinPrep Vial Result Comment: The Pap smear is a screening test designed to aid in the detection of premalignant and malignant conditions of the uterine cervix. It is not a diagnostic procedure and should not be used as the sole means of detecting cervical cancer. Both false-positive and false-negative reports do occur. Performed By: #### L 7400.0353 #### [facility] [address] [place], [address] PERFORM Comment Normal . [facility] Comment on above: Order Comment: Speci men Comment: [id number] Specimen Comment: No. of containers..01 ThinPrep Vial Result Comment: Aleksander Duncan Beef Grinder (ASCP) Performed By: #### L 7400.0353 #### [facility] [address] [place], [place], [address] Pelvic w/ Transvaginalon Pelvic w/ Transvaginal [facility] Services [address] [place], [place] [address] Pelvic w/ Transvaginal MR#: [id number] Acct: [id number] Name: GABRIELLE COOPER Rep #: [id number] : 1995 F 28 From: Raymundo tovar MD PCP: ANSELMO Irene, COAGULATING DRYING SUPERVISOR-C Status: [facility] CLI Study: Pelvic w/ Transvaginal Date of Exam: 03/10/24 Exam# [id number] Ordering Dr: Diane Vasquez NP COAGULATING DRYING SUPERVISOR -C [id number] PROCEDURE: ULTRASOUND OF THE FEMALE PELVIS - COMPLETE REASON FOR EXAM: Female, 28 years old. ovarian cyst f/u TECHNIQUE: Transabdominal and Transvaginal TECHNICAL QUALITY: Adequate. COMPARISON: Pelvic ultrasound dated February 04, 2024. CT of abdomen and pelvis dated December 22, 2023 FINDINGS: * Bilateral simple ovarian cyst are identified in the CT of abdomen and pelvis dated December 22, 2023. * On the pelvic ultrasound dated February 04, 2024 the previously seen left ovarian cyst have resolved, but the right ovarian exophytic cortical based cyst was still present maximally measuring 4.1 cm * On the current study there is no interval change in the cortical-based exophytic cyst arising from the inferior aspect of the right ovary maximally measuring 3.8 x 4.4 x 2.0 cm, which accounting for slight measuring technique and results in no interval change. There is no vascular flow or soft tissue components or septations within this cyst which is simple and benign in appearance. The cysts can be followed up within 3-6 months until 1 year of stability and no interval change or complexity has occurred. The uterus is anteverted and is in a midline position. The uterus measures 7.9 x 5.3 x 3.6 cm. There is no demonstrated myometrial mass. The endometrium measures 6.7 mm in thickness, and is hyperechoic. Minimal endometrial fluid is present. There is no demonstrated endometrial mass. Normal uterine cervix. The right ovary is visualized. The right ovary measures 4.2 x 5.2 x 2.9 cm. There is no right ovarian mass. There is no visualized right adnexal mass or complex lesion. The left ovary is visualized. The left ovary measures 5.0 x 3.8 x 3.3 cm. The degenerated left ovarian follicle noted measuring 1.7 cm which is of no clinical significance and is a normal physiologic process. There is no left ovarian mass. There is no visualized left adnexal mass or complex lesion. Normal color vascular flow and Doppler signal is demonstrated in both ovaries. There is no fluid in the cul-de-sac. US/Pelvic w/ Transvaginal IMPRESSION: 1. Bilateral simple ovarian cyst are identified in the CT of abdomen and pelvis dated December 22, 2023. 2. On the pelvic ultrasound dated February 04, 2024 the previously seen left ovarian cyst have resolved, but the right ovarian exophytic cortical based cyst was still present maximally measuring 4.1 cm 3. On the current study there is no interval change in the cortical-based exophytic cyst arising from the inferior aspect of the right ovary maximally measuring 3.8 x 4.4 x 2.0 cm, which accounting for slight measuring technique and results in no interval change. There is no vascular flow or soft tissue components or septations within this cyst which is simple and benign in appearance. The cysts can be followed up within 3-6 months until 1 year of stability and no interval change or complexity has occurred. Electronically Signed: Raymundo Bo MD at 10:51 EST Reading Location ID and State: [facility] / [place] , Service support , CC: BELLA Vasquez; [facility] Cerna Project Engineering Manager: Signed Normal [facility] EGD Reporton 03-02-2024 EGD Report [facility] Medical Records Department [address] [place] [address] EGD Report MR#: [id number] Acct: [id number] Name: GABRIELLE COOPER Rep #: [id number] : 1995 28 From: Kaleb Power DO PCP: ANSELMO Irene, BELLA Status:REG [facility] Patient Name: Gabrielle Cooper Procedure Date: 03/02/2024 1:22 PM Date of : 1995 Age: 28 Procedure: Upper GI endoscopy Indications: Epigastric abdominal pain, Functional Dyspepsia, Failure to respond to medical treatment Providers: Kaleb Power DO Referring MD: Blanka Simmons, Glenn-c Medicines: Monitored Anesthesia Care Patient Profile: This is a 28 year old female. Refer to note in patient chart for documentation of history and physical. Patient has symptoms of chronic abdominal distention, acute epigastric abdominal pain, chronic dyspepsia and chronic nausea. Complications: No immediate complications. Procedure: Pre-Anesthesia Assessment: - Prior to the procedure, a History and Physical was performed, and patient medications and allergies were reviewed. The patient is competent. The risks and benefits of the procedure and the sedation options and risks were discussed with the patient. All questions were answered and informed consent was obtained. Patient identification and proposed procedure were verified by the physician in the pre-procedure area. Mental Status Examination: alert and oriented. Airway Examination: normal oropharyngeal airway and neck mobility. Respiratory Examination: clear to auscultation. CV Examination: normal. Prophylactic Antibiotics: The patient does not require prophylactic antibiotics. Prior Anticoagulants: The patient has taken no anticoagulant or antiplatelet agents. ASA Grade Assessment: II - A patient with mild systemic disease. After reviewing the risks and benefits, the patient was deemed in satisfactory condition to undergo the procedure. The anesthesia plan was to use monitored anesthesia care (MAC). Immediately prior to administration of medications, the patient was re-assessed for adequacy to receive sedatives. The heart rate, respiratory rate, oxygen saturations, blood pressure, adequacy of pulmonary ventilation, and response to care were monitored throughout the procedure. The physical status of the patient was re-assessed after the procedure. After obtaining informed consent, the endoscope was passed under direct vision. Throughout the procedure, the patient's blood pressure, pulse, and oxygen saturations were monitored continuously. The gastroscope was introduced through the mouth, and advanced to the second part of duodenum. The upper GI endoscopy was accomplished without difficulty. The patient tolerated the procedure well. Scope In: 1:35:15 PM Scope Out: 1:39:11 PM Total Procedure Duration Time 0 hours 3 minutes 56 seconds Findings: The examined esophagus was normal. Bilious fluid was found in the gastric body. Patchy mildly erythematous mucosa without bleeding was found in the gastric body. Biopsies were taken with a cold forceps for histology. Verification of patient identification for the specimen was done. Estimated blood loss was minimal. Biopsies were taken with a cold forceps for Helicobacter pylori testing. Verification of patient identification for the specimen was done. Estimated blood loss was minimal. Lack contraction of the stomach. Reglan was given during the procedure to increase gastric motility. Patchy mildly erythematous mucosa without active bleeding and with no stigmata of bleeding was found in the duodenal bulb. Impression: - Normal esophagus. - Bilious gastric fluid. - Erythematous mucosa in the gastric body. Biopsied. - Erythematous duodenopathy. Recommendation: - Discharge patient to home. - Resume previous diet. - Continue present medications. - Await pathology results. Procedure Code(s): --- Professional --- 91060, Esophagogastroduodenos copy, flexible, transoral; with biopsy, single or multiple CPT copyright 2021 [employer]. All rights reserved. The codes documented in this report are preliminary and upon rental car porter review may be revised to meet current compliance requirements. Kaleb Power DO 03/02/2024 1:46:12 PM This report has been signed electronically. Number of Addenda: 0 Note Initiated On: 03/02/2024 1:22 PM 03/02/24 1346 Date Kaleb Power DO Cosigner Signature: Date (if indicated) CC: [facility] COAGULATING DRYING SUPERVISOR-C Blanka Cerna; Kaleb Power DO Date Dictated: 03/02/24 1322 Date Transcribed: Project Engineering Manager: LISSETT Signed Normal [facility] H Pylori (initial)on 024 H Pylori (initial) -- ---- Patient Age/Sex Location Account Attending Physician ---- GABRIELLE COOPER EN [id number] Kaleb Power DO ---- Specimen: [id number] Received: 03/12/24-1545 Status: BIGG [place] Num: [id number] Spec Type: IMMUNO Subm Dr: Kaleb Power, PHYSICIAN INSTITUTION [place] [address] SPECIMEN INFORMATION: Tissue Source: Duodenum biopsy Clinical Info: Abdominal pain Specimen Number: [id number] CPT code: 64803 METHODOLOGY: Deparaffinized sections of prefer/formalin-fixed tissue or PAP/DQ stained slides are incubated with monoclonal/polyclonal antibodies/oligonucleo tide probes. Localization is made via biotin free immunoperoxidase method. Appropriate controls are performed and reacted as expected. Results on target cell population are indicated in the following table: RESULTS: ANTIBODY / CLONE RESULT H Pylori (polyclonal) negative These tests were developed and their performance characteristics determined by [facility]. They may not have been cleared or approved by the U.S. Food and Drug Administration. The FDA has determined that such clearance or approval is not necessary. The above immunohistochemical/du alISH markers are ordered and reviewed by the Pathologist. INTERPRETATION: Duodenum, biopsy: Negative for Helicobacter pylori organisms. AM. 03/15/2024 Signed (signature on file) Dr. Rob Peralta DO 03/15/24 1310 ---- Normal [facility] Comment on above: Performed By: #### L 501.9310, L500.4050, L100.0100, L503.6030, L501.9520 #### [facility] [address] [place], [address] MR/POSTOP.ANEon 03-02-2024 MR/POSTOP.ANE [facility] Medical Records Department [address] [place] [address] Anesthesia Postop Eval I 03/02/24 1348 MR#: [id number] Acct: [id number] Name: ADEEL COOPERATUL KAISER Rep #: [id number] : 1995 28 From: William Alston PCP: ANSELMO Irene, COAGULATING DRYING SUPERVISOR-C Status:REG SDC Y Race: C Location: [place] [address] Anesthesia: Postop Eval I Current Vital Signs Temperature: 98.3 F Pulse Rate: 74 Blood Pressure: 149/93 Respiratory Rate: 16 Pulse Ox: 99 Oxygen Delivery Method: Room Air Assessment Airway patent: Yes Spontaneous unlabored respirations: Yes Mental status: Awake and Calm nausea: No Vomiting: No Anesthesia Complication: No Fluid Hydration Crystalloid volume administer (ml): 30 Total IV fluid infused: 30 Progress Note Anesthesia document: Postop Eval 1 completed: Yes 03/02/24 1349 Date William Shepard Signature: Date CC: Signed Normal [facility] [id number] 03-02-2024 MR/POSTOPAN2 [facility] Medical Records Department [address] [place] [address] Anesthesia Postop Eval II 03/02/24 1624 MR#: [id number] Acct: [id number] Name: ADEEL COOPERATUL KAISER Rep #: [id number] : 1995 28 From: Fredy Grant MD PCP: Blanka Nehemiah, VSC, COAGULATING DRYING SUPERVISOR-C Status:DEP SDC Y Race: C Location: EN Anesthesia Postop Eval I Sum Postop Eval Completion status Anesthesia document: Postop Eval 1 completed: Yes Anesthesia Postop Eval I Summary Anesthesia Postop Eval I Summary: Anesthesia Postop Eval I: Assessment Summary Airway patent Yes 03/02/24 13:49 [email or web address] Spontaneous unlabored Yes 03/02/24 13:49 [email or web address] respirations Mental status Awake,Calm 03/02/24 13:49 [email or web address] nausea No 03/02/24 13:49 [email or web address] Vomiting No 03/02/24 13:49 [email or web address] Anesthesia Postop Eval I: Fluid Summary Crystalloid volume administer 30 03/02/24 13:49 [email or web address] (ml) Colloids volume administered ( ml) Blood Product volume administered (ml) Total IV fluid infused 30 03/02/24 13:49 [email or web address] Anesthesia Postop Eval I: Summary Notes Anesthesia Complication No 03/02/24 13:49 [email or web address] Anesthesia Complication Comment: Post-operative progress note Anesthesia: Postop Eval II Evaluation Mental status: Awake and Calm Pain Level: 0 nausea: No Vomiting: No Complications Anesthesia Complication: No 03/02/24 1625 Date Fredy Shepard Signature: Date CC: Signed Normal [facility] Him Director Office Visit Reporton 03-02-2024 Him Director Office Visit Report [facility] [address], [address] [place] [address] OFFICE VISIT Date of Service: 03/02/24 MR#: [id number] Acct: [id number] Name: GABRIELLE COOPER Rep #: [id number] : 1995 Provider: BELLA atkins Age/Sex: 28/F Location[place] [facility] [place] Status: Signed Intake Vital Signs 01/28/24 09:29 03/02/24 10:04 03/02/24 10:10 Height 5 ft 7 in 5 ft 7 in 5 ft 7 in Weight: 267 lb BMI 41.8 BP 126/82 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) Chief Complaint: Annual Visitor Services Specialist Required: No Is patient in pain?: No Allergies clindamycin Allergy (Verified 03/02/24 10:13) Rash Medications ???Medication ???Instructions ???Recorded ???Confirmed ???Type cholecalciferol (vitamin D3) 1,250 50,000 unit PO QWEEK 05/30/17 03/02/24 History mcg (50,000 unit) capsule levothyroxine 75 mcg tablet 75 mcg PO DAILY 05/30/17 03/02/24 History spironolactone 50 mg tablet 50 mg PO QAM 05/30/17 03/02/24 History ferrous sulfate 325 mg (65 mg 325 mg PO DAILY 12/26/23 03/02/24 History iron) tablet pantoprazole 40 mg tablet,delayed 40 mg PO QDAY 02/03/24 03/02/24 History release cetirizine 10 mg tablet (24Hour 10 mg PO DAILY 02/27/24 03/02/24 History Allergy) norethindrone (contraceptive) 0.35 0.35 mg PO QDAY #84 tabs 03/02/24 03/02/24 Rx mg tablet (Jacquelni) Is last menstrual period known: Yes Last Menstrual Period: 01/24/24 Post menopausal: No Patient : No : No Control Method: OCP [facility] Medical History (Updated 03/02/24 @ 10:30 by Diane Vasquez COAGULATING DRYING SUPERVISOR, COAGULATING DRYING SUPERVISOR-C) COVID-19 Rash Thyroid disease Low iron Heartburn Gastric reflux Smoker Bradycardia Vitamin D deficiency Iron deficiency Fatigue Anxiety Depression Hypothyroidism Body mass index [BMI] 45.0-49.9, adult Obesity VINEET I (cervical intraepithelial neoplasia I) Abnormal Pap smear of cervix PCOS (polycystic ovarian syndrome) Surgical History History of tonsillectomy Family History Grandfather Heart disease Mother Diabetes Grandmother Diabetes Social History current occupational status: employed current occupation: [employer] Smoking Status: Current some day smoker tobacco type: cigarettes alcohol intake: never substance use type: does not use caffeine: Yes what type of physical activity do you participate in: none frequency: 3-4 times per week seatbelt use: always do you feel safe at home: Yes additional social history: single History 0 Elective abortions Hx Para Spontaneous abortions Hx # Term Pregnancies Ectopic pregnancies Hx # Pregnancies Multiple births # of living children HPI Encounter for routine gynecological examination Details: GABRIELLE COOPER is a 28 year old who presents for annual exam. Seen in December for pelvic pain. US indicated 4cm cyst. States pain has resolved. Has follow up US later today. Wishes to continue POP. Same sexual partner. Last PAP: 2020 History of abnormal PAP: colp 04/2017 VINEET 1. neg since Last mammogram: age 36 Colon cancer screening: age 46 Other preventative health care screenings: Christie Cerna/Shell Female Reproductive History Last Menstrual Period: 01/24/24 Questions: metorrhagia: No, sexually active: Yes, dyspareunia: No and PCB: No ROS Const Constitutional: Denies fatigue, weight gain or weight loss Cardio Card: Denies chest pain Resp Resp: Denies cough or dyspnea on exertion GI GI: Denies abdominal pain, bloating, change in stool character, constipation or vomiting : Reports as per HPI; Denies difficulty voiding, pelvic pain, urinary frequency, urinary incontinence, urinary urgency, vaginal discharge or vaginal pruritus Exam Const General: cooperative, healthy appearing, no acute distress and well developed Nutritional Appearance: obese Orientation: alert, oriented to person and oriented to place HENNE Head: normal to inspection Neck Neck: normal visual inspection Thyroid: thyroid normal Lymphatic: no lymphadenopathy noted Chest Breast inspection: normal inspection of the breasts and normal inspection of the axillae Breast palpation: normal palpation of the breasts, normal palpation of the axillae and no axillary lymphadenopathy Resp Effort Inspection: normal respiratory effort GI Palpation: soft, no masses and nontender Rectal Exam: deferred External Female Exam: normal external appearance and normal appearance of the urethra Urethra: normal appearance of the urethra and normal palpation Speculum Exam - Vagina: normal appearance of the vagina and normal vaginal discharge Speculum Exam - Cervix: normal (more content not included)... Normal [facility] ,Urineon 03-02-2024 Beta HCG ( test) Ql (U) Negative Normal [facility] Comment on above: Result Comment: Very dilute urine specimens, as indicated by a low specific gravity, may not contain admitting representative levels of hCG. If is still suspected, a first morning urine specimen should be collected 48 hours later and tested. Performed By: #### L 400.7600 #### [facility] [address] [place], [address] Surgery Specimen Level Toan 03-02-2024 Surgery Specimen Level IV ---- Patient Age/Sex Location Account Attending Physician ---- GABRIELLE COOPER 28/ EN [id number] Kaleb Power DO ---- Specimen: [id number] Received: 03/02/24 Status: BIGG Te[place]ada Num: [id number] Spec Type: EGD BIOPSY Subm Dr: Kaleb Power, HEADER OPERATION: EGD with biopsy PRE-OP DIAGNOSIS: Abdominal pain TISSUE SUBMITTED: Duodenum biopsy ---- MICROSCOPIC DIAGNOSIS Duodenum, biopsy: Fragments of duodenal mucosa, no pathologic diagnosis. Fragments of gastric mucosa with mild chronic inflammation. See comment. Tutu 03/04/2024 COMMENT Immunohistochemistry for H.pylori can be performed if clinically indicated. Please notify the laboratory if it is needed. MICROSCOPIC DESCRIPTION Slides are reviewed. GROSS DESCRIPTION Received in fixative is one container labeled with the patient's name and designated Duodenum biopsy. The specimen consists of multiple irregular fragments of light espinosa soft tissue that in aggregate measure 1.2 x 0.4 x 0.1 cm. The specimen is totally submitted in one cassette. . 03/03/2024 TC:3 CPT:71749 ---- Patient Age/Sex Location Account Attending Physician ---- GABRIELLE COOPER EN [id number] Kaleb Power DO ---- Signed (signature on file) Dr. Bharat Bejarano MD 03/04/24 1113 ---- Normal [facility] Comment on above: Performed By: #### L 7400.0353 #### [facility] [address] [place], [address] CBC W/Diff, Automatedon 10-2 -2023 Absolute Lymph 3.77 X10 3/uL Normal 0.83-4.51 [facility] Comment on above: Performed By: #### L 100.0100, L500.4050, L501.9520, L506.0400 #### [facility] [address] [place], [address] Absolute Neut 6.6 X10 3/uL Normal 2.0-7.7 [facility] Comment on above: Performed By: #### L 100.0100, L500.4050, L501.9520, L506.0400 #### [facility] [address] [place], [address] Basophils/100 WBC (Bld) 0.9 % Normal 0-[address] [facility] Comment on above: Performed By: #### L 100.0100, L500.4050, L501.9520, L506.0400 #### [facility] [address] [place], [address] Eosinophils/100 WBC (Bld) 3.8 % Normal 0-5 [facility] Comment on above: Performed By: #### L 100.0100, L500.4050, L501.9520, L506.0400 #### [facility] [address] [place], [address] Erythrocyte distribution width (RBC) [Ratio] 14.0 % Normal 11.6-14.6 [facility] Comment on above: Performed By: #### L 100.0100, L500.4050, L501.9520, L506.0400 #### [facility] [address] [place], [address] Hematocrit (Bld) [Volume fraction] 37.5 % Normal 37-47 [facility] Comment on above: Performed By: #### L 100.0100, L500.4050, L501.9520, L506.0400 #### [facility] [address] [place], [address] Hemoglobin (Bld) [Mass/Vol] 12.0 g/dL Normal 12.0-15.0 [facility] Comment on above: Performed By: #### L 100.0100, L500.4050, L501.9520, L506.0400 #### [facility] [address] [place], [address] IG% 0.400 Normal 0.0-0.9 [facility] Comment on above: Result Comment: IG% - Immature Granulocytes (promyelocytes, myelocytes and metamyelocytes) > 1% indicates that a LEFT SHIFT is Present. Performed By: #### L 100.0100, L500.4050, L501.9520, L506.0400 #### [facility] [address] [place], [address] Lymphocytes/100 WBC (Bld) 32.3 % Normal 19-41 [facility] Comment on above: Performed By: #### L 100.0100, L500.4050, L501.9520, L506.0400 #### [facility] [address] [place], [address] MCH (RBC) [Entitic mass] 28.1 pg Normal 27.0-32.0 [facility] Comment on above: Performed By: #### L 100.0100, L500.4050, L501.9520, L506.0400 #### [facility] [address] [place], [address] MCHC (RBC) [Mass/Vol] 32.0 g/dL Normal 32-36 [facility] Comment on above: Performed By: #### L 100.0100, L500.4050, L501.9520, L506.0400 #### [facility] [address] [place], [address] MCV (RBC) [Entitic vol] 87.8 fL Normal 81-99 [facility] Comment on above: Performed By: #### L 100.0100, L500.4050, L501.9520, L506.0400 #### [facility] [address] [place], [address] Monocytes/100 WBC (Bld) 6.3 % Normal 0-10 [facility] Comment on above: Performed By: #### L 100.0100, L500.4050, L501.9520, L506.0400 #### [facility] [address] [place], [address] Neutrophils/100 WBC (Bld) 56.3 % Normal 47-70 [facility] Comment on above: Performed By: #### L 100.0100, L500.4050, L501.9520, L506.0400 #### [facility] [address] [place], [address] Nucleated RBC (Bld) [#/Vol] 0 10*3/uL Normal 0-5 [facility] Comment on above: Performed By: #### L 100.0100, L500.4050, L501.9520, L506.0400 #### [facility] [address] [place], [address] Platelet mean volume (Bld) [Entitic vol] 9.9 fL Normal 6.2-12.0 [facility] Comment on above: Performed By: #### L 100.0100, L500.4050, L501.9520, L506.0400 #### [facility] [address] [place], [address] Platelets (Bld) [#/Vol] 414 10*3/uL Normal 150-450 [facility] Comment on above: Performed By: #### L 100.0100, L500.4050, L501.9520, L506.0400 #### [facility] [address] [place], [address] RBC (Bld) [#/Vol] 4.27 10*6/uL Normal 4.2-5.4 [facility] Comment on above: Performed By: #### L 100.0100, L500.4050, L501.9520, L506.0400 #### [facility] [address] [place], [address] RDW SD 44.6 fl High 35.1-43.9 [facility] Comment on above: Performed By: #### L 100.0100, L500.4050, L501.9520, L506.0400 #### [facility] [address] [place], [address] WBC (Bld) [#/Vol] 11.7 10*3/uL High 4.4-11.0 [facility] Comment on above: Performed By: #### L 100.0100, L500.4050, L501.9520, L506.0400 #### [facility] [address] [place], [address] Comprehensive Metabolic Prof ilon 02-11-2024 Albumin [Mass/Vol] 3.3 g/dL Normal 3.2-5.0 [facility] Comment on above: Performed By: #### L 100.0100, L500.4050, L501.9520, L506.0400 #### [facility] [address] [place], [address] Albumin/Globulin [Mass ratio] 1.0 {ratio} Normal 0.9-2.4 [facility] Comment on above: Performed By: #### L 100.0100, L500.4050, L501.9520, L506.0400 #### [facility] [address] [place], [address] ALK P 89 U/L Normal 45-117 [facility] Comment on above: Performed By: #### L 100.0100, L500.4050, L501.9520, L506.0400 #### [facility] [address] [place], [address] ALT [Catalytic activity/Vol] 15 U/L Normal 13-56 [facility] Comment on above: Performed By: #### L 100.0100, L500.4050, L501.9520, L506.0400 #### [facility] [address] [place], [address] AST [Catalytic activity/Vol] 8 U/L Low 15-37 [facility] Comment on above: Performed By: #### L 100.0100, L500.4050, L501.9520, L506.0400 #### [facility] [address] [place], [address] Bilirubin [Mass/Vol] 0.20 mg/dL Normal 0.20-1.00 [facility] Comment on above: Result Comment: For patients on eltrombopag therapy, use of Dimension [place] TBIL is not recommended. Performed By: #### L 100.0100, L500.4050, L501.9520, L506.0400 #### [facility] [address] [place], [address] BUN/CRE 9.8 RATIO Low 10-20 [facility] Comment on above: Performed By: #### L 100.0100, L500.4050, L501.9520, L506.0400 #### [facility] [address] [place], [address] CA,Total 9.1 mg/dL Normal 8.5-10.1 [facility] Comment on above: Performed By: #### L 100.0100, L500.4050, L501.9520, L506.0400 #### [facility] [address] [place], [address] Chloride [Moles/Vol] 109 mmol/L High 98-107 [facility] Comment on above: Performed By: #### L 100.0100, L500.4050, L501.9520, L506.0400 #### [facility] [address] [place], [address] CO2 [Moles/Vol] 27.0 mmol/L Normal 21.0-32.0 [facility] Comment on above: Performed By: #### L 100.0100, L500.4050, L501.9520, L506.0400 #### [facility] [address] [place], [address] Creatinine [Mass/Vol] 0.72 mg/dL Normal 0.55-1.02 [facility] Comment on above: Result Comment: The validity of the calculated GFR GFRAA in patients over 70 years has not been determined. Clinical correlation is essential. Performed By: #### L 100.0100, L500.4050, L501.9520, L506.0400 #### [facility] [address] [place], [address] EST GFR - AA 125 mL/min Normal >60 [facility] Comment on above: Result Comment: Afri can Malagasy GFR Calc Performed By: #### L 100.0100, L500.4050, L501.9520, L506.0400 #### [facility] [address] [place], [address] GAP 5 Normal 5-15 [facility] Comment on above: Performed By: #### L 100.0100, L500.4050, L501.9520, L506.0400 #### [facility] [address] [place], [address] GFR/1.73 sq M.predicted among non-blacks MDRD (S/P/Bld) [Vol rate/Area] 103 mL/min/{1.73_m2} Normal >60 [facility] Comment on above: Result Comment: Non- GFR Calc Performed By: #### L 100.0100, L500.4050, L501.9520, L506.0400 #### [facility] [address] [place], [address] Globulin (S) [Mass/Vol] 3.4 g/dL Normal 2.2-4.2 [facility] Comment on above: Performed By: #### L 100.0100, L500.4050, L501.9520, L506.0400 #### [facility] [address] [place], [address] Glucose [Mass/Vol] 93 mg/dL Normal 74-106 [facility] Comment on above: Performed By: #### L 100.0100, L500.4050, L501.9520, L506.0400 #### [facility] [address] [place], [address] Potassium [Moles/Vol] 3.3 mmol/L Low 3.5-5.1 [facility] Comment on above: Performed By: #### L 100.0100, L500.4050, L501.9520, L506.0400 #### [facility] [address] [place], [address] Sodium [Moles/Vol] 142 mmol/L Normal 136-145 [facility] Comment on above: Performed By: #### L 100.0100, L500.4050, L501.9520, L506.0400 #### [facility] [address] [place], [address] T PROT 6.7 g/dL Normal 6.4-8.2 [facility] Comment on above: Performed By: #### L 100.0100, L500.4050, L501.9520, L506.0400 #### [facility] [address] [place], [address] Urea nitrogen [Mass/Vol] 7 mg/dL Normal 7-18 [facility] Comment on above: Performed By: #### L 100.0100, L500.4050, L501.9520, L506.0400 #### [facility] [address] [place], [address] T4 Free Directon 02-11-2024 T4 FREE DIRECT 1.06 ng/dL Normal 0.76-1.46 [facility] Comment on above: Performed By: #### L 501.9310, L500.4050, L100.0100, L503.6030, L501.9520 #### [facility] [address] [place], [address] Thyroid Stim Hormone (TSH)on 02-11-2024 TSH 4.000 uIU/mL High 0.358-3.740 [facility] Comment on above: Performed By: #### L 100.0100, L500.4050, L501.9520, L506.0400 #### [facility] [place], [address] CNOVon 02-06-2024 CNOV Office Visit (UCWSTR ) GABRIELLE COOPER ([id number]) 1995 F Date Time Provider Department 02/06/24 1:30 PM ARDEN HANNA WS During your visit today, we recorded the following information about you: Temperature Pulse Respiration Blood pressure 98.1 degrees 97/minute 16/minute 152/82 Weight Last Period 118.4 kg 01/21/24 Arden Hanna APRN.ASBESTOS REMOVER 02/06/2024 1:29 PM Signed This note was created using NoteWriter. Subjective Gabrielle Cooper is a 28 year old female. HPI Pt was on Amoxicillin for an infected tooth about two weeks ago. Once the atb was finished pt felt a warm sensation in her body, feeling flushed, and confused. January 27 she was in the hospital for some abdominal issues her SBP was in the 170s. Prior to this her BP had been in the 120s. Review of Systems Constitutional: Negative for fatigue and fever. HENT: Negative for facial swelling. Skin: Negative for rash. Neurological: Negative for speech difficulty and headaches. Objective BP 152/82 Pulse 97 Temp 36.7 ?C (98.1 ?F) (Left Tympanic) Resp 16 Wt 118.4 kg (261 lb 0.4 oz) LMP 01/21/2024 (Approximate) SpO2 98% BMI 40.49 kg/m? Physical Exam Vitals and nursing note reviewed. Constitutional: General: She is not in acute distress. Appearance: Normal appearance. She is not ill-appearing. HENT: Head: Normocephalic. Mouth/Throat: Mouth: Mucous membranes are moist. Eyes: Conjunctiva/sclera: Conjunctivae normal. Cardiovascular: Rate and Rhythm: Normal rate and regular rhythm. Pulmonary: Effort: Pulmonary effort is normal. Breath sounds: Normal breath sounds. Musculoskeletal: General: Normal range of motion. Cervical back: Normal range of motion. Skin: General: Skin is warm and dry. Neurological: General: No focal deficit present. Mental Status: She is alert and oriented to person, place, and time. Cranial Nerves: No cranial nerve deficit. Sensory: No sensory deficit. Motor: No weakness. Gait: Gait normal. Psychiatric: Mood and Affect: Mood normal. Behavior: Behavior normal. Assessment and Plan ASSESSMENT/PLAN: 1. Elevated blood pressure reading without diagnosis of hypertension - ICD9: 796.2, ICD10: R03.0 -Recheck of blood pressure here was 138/78. Patient had a normal neurologic exam. I did not appreciate any blistering of the skin or of the mouth lips or tongue. I discussed with patient that a week out from finishing amoxicillin her body should have metabolized it out of her system. Patient does note follow-up with PCP in approximately 5 days. I instructed patient to monitor for any signs of blistering of skin along with any mental status changes. She should follow-up with her PCP for continued blood pressure monitoring and if anything worsens in the meantime she should go to the ER for evaluation. Patient understands and is agreeable. Arden Hanna APRN.KIA Allergies As of Date: 02/06/2024 Noted Allergy Reaction CLINDAMYCIN 04/18/2016 2 - Rash Date Reviewed: 02/06/2024 Reviewed by: Arden Hanna APRN.ASBESTOS REMOVER - Fully Assessed Reason for Visit: Warm feeling with hot flashes with brain fog AND tachycardia [Other] Primary Visit Diagnosis:Elevated blood pressure reading without diagnosis of hypertension [R03.0] Prescriptions as of 02/06/2024 - cholecalciferol, Vitamin D3, (VITAMIN D3) 1,250 mcg (50,000 unit) cap capsule Take 1 capsule by mouth one time a week. - pantoprazole DR (PROTONIX) 40 mg tablet Take 1 tablet by mouth every afternoon. - spironolactone (ALDACTONE) 50 mg tablet Take 50 mg by mouth once daily. - ferrous sulfate 325 mg (65 mg iron) tablet Take 1 tablet by mouth once daily. - Norethindrone, Contraceptive, 0.35 mg tablet TAKE 1 TABLET BY MOUTH EVERY DAY. START DAY 1 OF MENSTRUAL CYCLE - guaiFENesin (MUCINEX) 600 mg 12 hr tablet Take 2 tablets by mouth twice daily. - ibuprofen (MOTRIN) 600 mg tablet Take 1 tablet by mouth every 6 hours as needed for Pain. - METFORMIN HCL (METFORMIN ORAL) Take by mouth. - CALCIUM CARBONATE/VITAMIN D3 (VITAMIN D-3 ORAL) Take by mouth. - levothyroxine (SYNTHROID) 75 mcg tablet Take 1 tablet by mouth once daily. Problem List As Of Date 02/06/2024 Noted Resolved Irregular menstrual cycle [N92.6] 04/18/2016 Acquired hypothyroidism [E03.9] 04/18/2016 Letter Text Encounter Status:Closed by ARDEN HANNA on 02/06/24 Normal [facility] Pelvic w/ Transvaginalon Pelvic w/ Transvaginal [facility] Imaging Services [address] [place], [place] [address] Pelvic w/ Transvaginal MR#: [id number] Acct: [id number] Name: GABRIELLE COOPER Rep #: [id number] : 1995 F 28 From: Thierno Cuenca MD PCP: ANSELMO Irene, COAGULATING DRYING SUPERVISOR-C Status: REG CLI Study: Pelvic w/ Transvaginal Date of Exam: 02/04/24 Exam# [id number] Ordering Dr: Diane Vasquez NP COAGULATING DRYING SUPERVISOR -C [id number] STUDY: ULTRASOUND OF THE FEMALE PELVIS - COMPLETE REASON FOR EXAM: Female, 28 years old. pelvic pain LMP: 01/22/2024 TECHNIQUE: Transabdominal and Transvaginal TECHNICAL QUALITY: Adequate. COMPARISON: 12/24/2018 FINDINGS: The uterus is anteverted and is in a midline position. The uterus measures 7.9 x 4.6 x 3.2 cm. Fluid in the endocervical canal. The endometrium measures 4 mm in thickness, and is hyperechoic. There is no demonstrated endometrial mass. There is no demonstrated myometrial mass. I.U.D. - The patient does not have an I.U.D. The right ovary is visualized. The right ovary measures 4.7 x 3.3 x 3.3 cm. There is no right ovarian cyst or ovarian mass. 4.1 cm oval anechoic mass with increased transmission within the right adnexa consistent with a par ovarian cyst. There is normal arterial and normal venous vascularity. The left ovary is visualized. The left ovary measures 4.6 x 3.7 x 2.7 cm. There is no left ovarian cyst or ovarian mass. There is no visualized left adnexal mass or complex lesion. There is normal arterial and normal venous vascularity. There is no fluid in the cul-de-sac. The pre void volume of the bladder was ml. The post void volume of the bladder was ml. Polycystic ovary disease: No. US/Pelvic w/ Transvaginal IMPRESSION: Some fluid in the endocervical canal. 4.1 cm right ovarian exophytic corpus luteum cyst or a par ovarian cyst. Electronically Signed: Thierno Cuenca MD at 12:12 EDT , CC: BELLA Vasquez; [facility] Cerna Project Engineering Manager: Signed Normal [facility] Gastroenterology Visit Repor ton 02-03-2024 Gastroenterology Visit Report [facility] [address] [place] [address] OFFICE VISIT Date of Service: 02/03/24 MR#: [id number] Acct: [id number] Name: GABRIELLE COOPER Rep #: [id number] : 1995 Provider: AKI Seaman Age/Sex: 28/F Location: [facility] Status: Signed Intake Vital Signs 12/29/23 19:34 01/28/24 09:29 Height 5 ft 7 in 5 ft 7 in Weight: 262 lb BMI 41.0 BP 129/88 H Blood Pressure Location Lt brachial Position Sitting Respiration 16 Pulse 79 Pulse Source Monitor Intake Visit Reasons: Abdominal pain Chief Complaint: abdominal pressure Visitor Services Specialist Required: No Is patient in pain?: No Allergies clindamycin Allergy (Verified 01/28/24 09:39) Rash Medications ???Medication ???Instructions ???Recorded ???Confirmed ???Type cholecalciferol (vitamin D3) 1,250 50,000 unit PO QWEEK 05/30/17 02/03/24 History mcg (50,000 unit) capsule levothyroxine 75 mcg tablet 75 mcg PO DAILY 05/30/17 02/03/24 History spironolactone 50 mg tablet 50 mg PO QAM 05/30/17 01/14/24 History norethindrone (contraceptive) 0.35 0.35 mg PO QDAY #84 tabs 02/24/23 02/03/24 Rx mg tablet (Jacquelin) ferrous sulfate 325 mg (65 mg 325 mg PO DAILY 12/26/23 02/03/24 History iron) tablet pantoprazole 40 mg tablet,delayed 40 mg PO QDAY 02/03/24 02/03/24 History release Post menopausal: No Patient : No Have you fallen in the past year?: No Nurse's Note: OV 02.03.24 Pt here for c/o abdominal pressure she has been experiencing for about a month. She takes pantoprazole daily. Has never had an EGD or colonoscopy. [facility] Medical History Bradycardia Vitamin D deficiency Iron deficiency Fatigue Anxiety Depression Hypothyroidism Body mass index [BMI] 45.0-49.9, adult Obesity VINEET I (cervical intraepithelial neoplasia I) Abnormal Pap smear of cervix PCOS (polycystic ovarian syndrome) Surgical History History of tonsillectomy Family History Grandfather Heart disease Mother Diabetes Grandmother Diabetes Social History current occupational status: employed current occupation: [employer] Smoking Status: Current some day smoker tobacco type: cigarettes alcohol intake: never substance use type: does not use caffeine: Yes what type of physical activity do you participate in: none frequency: 3-4 times per week seatbelt use: always do you feel safe at home: Yes additional social history: single HPI HPI Chief Complaint: abdominal pressure Details: GABRIELLE COOPER, is a 28 F who presents to the office today for establishment with [facility]. She has a PMHx of VINEET I, anxiety, depression, PCOS, hypothyroidism, iron deficiency, bradycardia and hydrosalpinx. She is here today for evaluation of abdominal/epigastric pressure which has been persistent for over a month now. She was seen in the ED here at [facility] about a month ago with normal work up. She has been taking Pantoprazole daily since then and has not noticed much of a difference. She feels all this is related to taking Amoxicillin for a tooth infection. She also mentions that she has intentionally lost some weight recently and wonders if this could be attributing it this feeling. She has had gastritis in the past and tells me it does not feel the same. She has never had an EGD. She denies n/v, heartburn, diarrhea constipation or melena. [facility] ED .06.14; visit for abdominal pain and dark stool CT abdomen pelvis .06.14; Possible hydrosalpinx on the right. Otherwise no acute disease. Recommend pelvic ultrasound. ROS Const Constitutional: Positive for fatigue and headache(s); No fever(s) or weight change ENT ENT: Positive for headache(s); No difficulty swallowing Gastro GI: Positive for abdominal pain, bloating, heartburn and excessive flatus; No belching, change in bowel habits, change in stool character, coffee ground emesis, constipation, cramping, diarrhea, difficulty swallowing, feeling full early, incontinent of stools, Vomiting blood/hematemesis, Blood in stool, loose stools, Black,tarry stools, nausea/dyspepsia, pain with swallowing, vomiting or other Musc Musculoskeletal: No joint pain Skin Skin: No yellowing of the eye or itchy eyes Neuro Neurology: Positive for headache(s) Psych Psychiatric: Positive for anxiety and Positive for depression Endo Endocrine: Positive for fatigue; No weight change Aller/Imm Allergy/Immunologic: No itchy eyes Brett/Lymp Hematologic/Lymphatic: No easy bleeding or easy bruising Exam Const General: cooperative and comfortable Nutritional Appearance: average body habitus and well nour (more content not included)... Normal [facility] 12 Lead EKG performed by [facility] on 01-28-2024 12 Lead EKG performed by [facility] [address] [place] [address] 12 Lead EKG performed by [facility] 01/28/24928 MR#: [id number] Acct: [id number] Name: GABRIELLE COOPER Rep #: [id number] : 1995 28 From: Brad Shin MD Attending Dr: Dr. Brad Shin MD Status: DEP A MB Ordering Dr: Brad Shin MD Date: 01/28/24 Location: [facility] Sex: F C Admitted: [facility]/12 Lead EKG performed by [facility] Sinus Rhythm -Horizontal axis for age. BORDERLINE 01/28/24 1037 Date Brad Shin MD CC: ANSELMO COAGULATING DRYING SUPERVISORAricC Blanka Cerna Date Dictated: 01/28/24928 Date Transcribed: 01/28/24928 Project Engineering Manager: [place] Signed Normal [facility] Cardiology Visit Reporton Cardiology Visit Report [facility] [address] [place] [address] OFFICE VISIT Date of Service: 01/28/24 MR#: [id number] Acct: [id number] Name: GABRIELLE COOPER Rep #: [id number] : 1995 Provider: Dr. Brad Shin MD Age/Sex: 28/F Location: [facility] Status: Signed [facility] History of Present Illness Details: 28-year-old lady with no previous cardiac history but a history of obesity, hypothyroidism, PCOS, COVID at the end of September 2023 who has been complaining of fatigue occasional dizziness and noticing that her heart rate is slow especially at night. She did acquire a pulse oximeter machine after she developed COVID and has been noticing that some of her heart rate has been going down to the 40s at night. There are no associated symptoms. She has had no neck arm or jaw discomfort suggest angina no significant dizziness or diaphoresis. Her TSH is noted to be normal with mildly elevated T4. Her hemoglobin is also noted to be normal. Her physical exam here today is unremarkable. Intake Vital Signs 11/22/23 19:07 01/14/24 15:00 01/28/24 09:29 Height 5 ft 7 in 5 ft 7 in 5 ft 7 in Weight: 262 lb BMI 41.0 BP 129/88 H Blood Pressure Location Lt brachial Position Sitting Respiration 16 Pulse 79 Pulse Source Monitor Intake Visit Reasons: BRADYCARDIA (SELF) Visitor Services Specialist Required: No Accompanied by: Self Is patient in pain?: No Allergies clindamycin Allergy (Verified 01/28/24 09:39) Rash Medications ???Medication ???Instructions ???Recorded ???Confirmed ???Type cholecalciferol (vitamin D3) 1,250 50,000 unit PO QWEEK 05/30/17 01/14/24 History mcg (50,000 unit) capsule levothyroxine 75 mcg tablet 75 mcg PO DAILY 05/30/17 01/14/24 History spironolactone 50 mg tablet 50 mg PO QAM 05/30/17 01/14/24 History norethindrone (contraceptive) 0.35 0.35 mg PO QDAY #84 tabs 02/24/23 01/14/24 Rx mg tablet (Jacquelin) ferrous sulfate 325 mg (65 mg 325 mg PO DAILY 12/26/23 01/14/24 History iron) tablet [facility] Medical History Bradycardia Vitamin D deficiency Iron deficiency Fatigue Anxiety Depression Hypothyroidism Body mass index [BMI] 45.0-49.9, adult Obesity VINEET I (cervical intraepithelial neoplasia I) Abnormal Pap smear of cervix PCOS (polycystic ovarian syndrome) Surgical History History of tonsillectomy Family History Grandfather Heart disease Mother Diabetes Grandmother Diabetes Social History current occupational status: employed current occupation: [employer] Smoking Status: Current some day smoker tobacco type: cigarettes alcohol intake: never substance use type: does not use caffeine: Yes what type of physical activity do you participate in: none frequency: 3-4 times per week seatbelt use: always do you feel safe at home: Yes additional social history: single ROS Const Const: Positive for fatigue; Negative for weakness, headache(s), daytime sleepiness or difficulty sleeping ENT ENT: Positive for dizziness (with position changes); Negative for headache(s) or Nosebleed/epistaxis Cardio Chest Pain: Yes Frequency: daily (all day) Character: other (heaviness) Onset: exercise Location: mid sternal Duration: continuous Exacerbation: exercise Palpitations: Yes feels like its: fast and pounding Edema: None Resp Respiratory: Positive for SOB with activity; Negative for SOB at rest, SOB orthopnea SOB lying down or Cough GI GI: Negative nausea, vomiting or heartburn Neuro Neuro: Positive for dizziness (with position changes); Negative for lightheadedness, near syncope, headache(s) or weakness Endo Endo: Positive for fatigue Cardiology Exam Const Appearance: cooperative, healthy appearing, no acute distress, well developed and well groomed Nutritional Appearance: average body habitus and well nourished Orientation: alert, awake and oriented x3 Head Head: normal to inspection, normocephalic and atraumatic Ears: hearing grossly normal bilaterally and external ears normal Nose: external nose normal, nares normal, nasal mucous membranes and turbinates normal, septum normal and no nasal discharge Face and Sinus: face symmetric Mouth: oral mucosae normal, tongue normal, oropharynx normal and moist mucous membranes Teeth and gingiva: dentition normal Throat: posterior oropharynx normal, tonsils normal and uvula midline Eyes General: appearance normal, both eyes and all related structures Eyelids: eyelids normal Conjunctivae: conjunctivae normal Pupils: PERRL, normal by confrontation and accommodation normal EOM: EOM intact bilater (more content not included)... Normal [facility] M8200.2203on 01-14-2024 M8200.2203 Pending Chlamydia Trachomatis PCR NEGATIVE for Chlamydia trachomatis N. gonorrhoeae PCR Negative for N. gonorrhoeae Normal [facility] Comment on above: Performed By: #### L 501.9310, L500.4050, L100.0100, L503.6030, L501.9520 #### [facility] [address] [place], [address] Him Director Office Visit Reporton 01-14-2024 Him Director Office Visit Report [facility] [address], [address] [place] [address] OFFICE VISIT Date of Service: 01/14/24 MR#: [id number] Acct: [id number] Name: GABRIELLE COOPER Rep #: [id number] : 1995 Provider: BELLA atkins Age/Sex: 28/F Location[place] [facility] Status: Signed Intake Vital Signs 12/29/23 19:34 01/14/24 14:49 01/14/24 15:00 Height 5 ft 7 in 5 ft 7 in 5 ft 7 in Weight: 264 lb BMI 41.3 BP 124/72 H Intake Visit Reasons: ER FU CYST ON RIGHT OVARY Chief Complaint: ER F/U cyst on Right ovary Visitor Services Specialist Required: No Is patient in pain?: No Allergies clindamycin Allergy (Verified 01/14/24 14:49) Rash Medications ???Medication ???Instructions ???Recorded ???Confirmed ???Type cholecalciferol (vitamin D3) 1,250 50,000 unit PO QWEEK 05/30/17 01/14/24 History mcg (50,000 unit) capsule levothyroxine 75 mcg tablet 75 mcg PO DAILY 05/30/17 01/14/24 History spironolactone 50 mg tablet 50 mg PO QAM 05/30/17 01/14/24 History norethindrone (contraceptive) 0.35 0.35 mg PO QDAY #84 tabs 02/24/23 01/14/24 Rx mg tablet (Jacquelin) pantoprazole 40 mg tablet,delayed 40 mg PO DAILY #40 tabs 12/22/23 01/14/24 Rx release (Protonix) ferrous sulfate 325 mg (65 mg 325 mg PO DAILY 12/26/23 01/14/24 History iron) tablet Is last menstrual period known: Yes Last Menstrual Period: 01/14/24 Post menopausal: No Patient : No : No [facility] Medical History Vitamin D deficiency Iron deficiency Fatigue Anxiety Depression Hypothyroidism Body mass index [BMI] 45.0-49.9, adult Obesity VINEET I (cervical intraepithelial neoplasia I) Abnormal Pap smear of cervix PCOS (polycystic ovarian syndrome) Surgical History History of tonsillectomy Family History Grandfather Heart disease Mother Diabetes Grandmother Diabetes Social History current occupational status: employed current occupation: [employer] Smoking Status: Current some day smoker tobacco type: cigarettes alcohol intake: never substance use type: does not use caffeine: Yes what type of physical activity do you participate in: none frequency: 3-4 times per week seatbelt use: always do you feel safe at home: Yes additional social history: single HPI ER FU CYST ON RIGHT OVARY Details: GABRIELLE COOPER is a 28 year old who presents for ED followup for pelvic pain. Seen [facility] ED 12/21. CT indicated right hydrosalpinx. She states her pain has resolved. She is on jacquelin and states having normal menses each month. Female Reproductive History Last Menstrual Period: 01/14/24 History 0 Elective abortions Hx Para Spontaneous abortions Hx # Term Pregnancies Ectopic pregnancies Hx # Pregnancies Multiple births # of living children ROS Const Constitutional: Reports system reviewed and no additional complaints, except as documented Eyes Eyes: Reports system reviewed and no additional complaints, except as documented GI GI: Denies abdominal pain or change in bowel habits : Reports as per HPI Exam Const General: cooperative and no acute distress Orientation: oriented x3 HENMT Head: normal to inspection and normocephalic Eyes General: appearance normal, both eyes and all related structures Neck Neck: normal visual inspection Resp Effort Inspection: normal respiratory effort Neuro Cognition: normal cognition Speech: speech normal Psych Appearance: grossly normal Mood: congruent mood Affect: normal affect Speech and Movement: speech and movement normal Attitude: cooperative Judgment: judgment good Coding Level of Care Code Off vis,est,level 3 Diagnoses Pelvic pain R10.2 Hydrosalpinx N70.11 Assessment and Plan Assessment and Plan (1) Pelvic pain: Status: Acute (2) Hydrosalpinx: Status: Acute Orders: Orders Pelvic w/ Transvaginal Today R10.2 - Pelvic and perineal pain Chlamydia/Neisseria PCR Today Z11.3 - Encounter for screening for infections with a predominantly sexual mode of transmission Plan Proceed with pelvic US Urine GCC for rule infection Annual is scheduled Feb 2024 and will call if pain recurs. 01/14/24 1523 Date Diane York COAGULATING DRYING SUPERVISOR COAGULATING DRYING SUPERVISOR-C Cosigner Signature: Date (if applicable) CC: Normal [facility] 12 Lead EKGon 12-29-2023 12 Lead EKG [facility] Cardiovascular Services [address] [place] [address] 12 Lead EKG 12/29/234 MR#: [id number] Acct: [id number] Name: GABRIELLE COOPER Rep #: [id number] : 1995 28 From: Brad Shin MD Attending Dr: Status: DEP ER Ordering Dr: Angelito Bauman MD Date: 12/29/23 Location: ED Sex: F C Admitted: Test Reason : DYSRHYTHMIA Blood Pressure : / mmHG Vent. Rate : 082 BPM Atrial Rate : 082 BPM P-R Int : 160 ms QRS Dur : 084 ms QT Int : 376 ms P-R-T Axes : 044 -04 012 degrees QTc Int : 439 ms Normal sinus rhythm Normal ECG Confirmed by BERNADETTE LLANOS, BRAD ([id number]), copy editor BRIONNA LOCKETT ([id number]) on 12/30/2023 7:47:55 AM Referred By: Confirmed By:BRAD SHIN MD 12/30/23 0748 Date Brad Shin MD CC: [facility] COAGULATING DRYING SUPERVISOR-C Blanka Cerna; Dr. Angelito Bauman MD Signed Normal [facility] Basic Metabolic Profile (BMP )on 12-29-2023 BUN/CRE 9.6 RATIO Low 10-20 [facility] Comment on above: Performed By: #### L 501.9310, L500.4050, L100.0100, L503.6030, L501.9520 #### [facility] [address] [place], [address] CA,Total 9.4 mg/dL Normal 8.5-10.1 [facility] Comment on above: Performed By: #### L 501.9310, L500.4050, L100.0100, L503.6030, L501.9520 #### [facility] [address] [place], [address] Chloride [Moles/Vol] 108 mmol/L High 98-107 [facility] Comment on above: Performed By: #### L 501.9310, L500.4050, L100.0100, L503.6030, L501.9520 #### [facility] [address] [place], [address] CO2 [Moles/Vol] 19.0 mmol/L Low 21.0-32.0 [facility] Comment on above: Performed By: #### L 501.9310, L500.4050, L100.0100, L503.6030, L501.9520 #### [facility] [address] [place], [address] Creatinine [Mass/Vol] 0.84 mg/dL Normal 0.55-1.02 [facility] Comment on above: Result Comment: The validity of the calculated GFR GFRAA in patients over 70 years has not been determined. Clinical correlation is essential. Performed By: #### L 501.9310, L500.4050, L100.0100, L503.6030, L501.9520 #### [facility] [address] [place], [address] ECRCL 133.70 ml/min Normal [facility] Comment on above: Performed By: #### L 501.9310, L500.4050, L100.0100, L503.6030, L501.9520 #### [facility] [address] [place], [address] EST GFR - AA 105 mL/min Normal >60 [facility] Comment on above: Result Comment: Afri can Malagasy GFR Calc Performed By: #### L 501.9310, L500.4050, L100.0100, L503.6030, L501.9520 #### [facility] [address] [place], [address] GAP 10 Normal 5-15 [facility] Comment on above: Performed By: #### L 501.9310, L500.4050, L100.0100, L503.6030, L501.9520 #### [facility] [address] [place], [address] GFR/1.73 sq M.predicted among non-blacks MDRD (S/P/Bld) [Vol rate/Area] 86 mL/min/{1.73_m2} Normal >60 [facility] Comment on above: Result Comment: Non- GFR Calc Performed By: #### L 501.9310, L500.4050, L100.0100, L503.6030, L501.9520 #### [facility] [address] [place], [address] Glucose [Mass/Vol] 112 mg/dL High 74-106 [facility] Comment on above: Result Comment: Fast ing Glucose result from 100 to 125 mg/dL suggests IMPAIRED HOMEOSTASIS per A.D.A. criteria. Performed By: #### L 501.9310, L500.4050, L100.0100, L503.6030, L501.9520 #### [facility] [address] [place], [address] Potassium [Moles/Vol] 4.5 mmol/L Normal 3.5-5.1 [facility] Comment on above: Performed By: #### L 501.9310, L500.4050, L100.0100, L503.6030, L501.9520 #### [facility] [address] [place], [address] Sodium [Moles/Vol] 137 mmol/L Normal 136-145 [facility] Comment on above: Performed By: #### L 501.9310, L500.4050, L100.0100, L503.6030, L501.9520 #### [facility] [address] [place], [address] Urea nitrogen [Mass/Vol] 8 mg/dL Normal 7-18 [facility] Comment on above: Performed By: #### L 501.9310, L500.4050, L100.0100, L503.6030, L501.9520 #### [facility] [address] [place], [address] CBC W/Diff, Automatedon 09-0 -2023 Absolute Lymph 3.42 X10 3/uL Normal 0.83-4.51 [facility] Comment on above: Performed By: #### L 501.9310, L500.4050, L100.0100, L503.6030, L501.9520 #### [facility] [address] [place], [address] Absolute Neut 7.0 X10 3/uL Normal 2.0-7.7 [facility] Comment on above: Performed By: #### L 501.9310, L500.4050, L100.0100, L503.6030, L501.9520 #### [facility] [address] [place], [address] Basophils/100 WBC (Bld) 0.8 % Normal 0-[address] [facility] Comment on above: Performed By: #### L 501.9310, L500.4050, L100.0100, L503.6030, L501.9520 #### [facility] [address] [place], [address] Eosinophils/100 WBC (Bld) 2.3 % Normal 0-5 [facility] Comment on above: Performed By: #### L 501.9310, L500.4050, L100.0100, L503.6030, L501.9520 #### [facility] [address] [place], [address] Erythrocyte distribution width (RBC) [Ratio] 14.3 % Normal 11.6-14.6 [facility] Comment on above: Performed By: #### L 501.9310, L500.4050, L100.0100, L503.6030, L501.9520 #### [facility] [address] [place], [address] Hematocrit (Bld) [Volume fraction] 39.8 % Normal 37-47 [facility] Comment on above: Performed By: #### L 501.9310, L500.4050, L100.0100, L503.6030, L501.9520 #### [facility] [address] [place], [address] Hemoglobin (Bld) [Mass/Vol] 13.1 g/dL Normal 12.0-15.0 [facility] Comment on above: Performed By: #### L 501.9310, L500.4050, L100.0100, L503.6030, L501.9520 #### [facility] [address] [place], [address] IG% 0.300 Normal 0.0-0.9 [facility] Comment on above: Result Comment: IG% - Immature Granulocytes (promyelocytes, myelocytes and metamyelocytes) > 1% indicates that a LEFT SHIFT is Present. Performed By: #### L 501.9310, L500.4050, L100.0100, L503.6030, L501.9520 #### [facility] [address] [place], [address] Lymphocytes/100 WBC (Bld) 29.9 % Normal 19-41 [facility] Comment on above: Performed By: #### L 501.9310, L500.4050, L100.0100, L503.6030, L501.9520 #### [facility] [address] [place], [address] MCH (RBC) [Entitic mass] 27.6 pg Normal 27.0-32.0 [facility] Comment on above: Performed By: #### L 501.9310, L500.4050, L100.0100, L503.6030, L501.9520 #### [facility] [address] [place], [address] MCHC (RBC) [Mass/Vol] 32.9 g/dL Normal 32-36 [facility] Comment on above: Performed By: #### L 501.9310, L500.4050, L100.0100, L503.6030, L501.9520 #### [facility] [address] [place], [address] MCV (RBC) [Entitic vol] 83.8 fL Normal 81-[address] [facility] Comment on above: Performed By: #### L 501.9310, L500.4050, L100.0100, L503.6030, L501.9520 #### [facility] [address] [place], [address] Monocytes/100 WBC (Bld) 5.6 % Normal 0-[address] [facility] Comment on above: Performed By: #### L 501.9310, L500.4050, L100.0100, L503.6030, L501.9520 #### [facility] [address] [place], [address] Neutrophils/100 WBC (Bld) 61.1 % Normal 47-70 [facility] Comment on above: Performed By: #### L 501.9310, L500.4050, L100.0100, L503.6030, L501.9520 #### [facility] [address] [place], [address] Nucleated RBC (Bld) [#/Vol] 0 10*3/uL Normal 0-5 [facility] Comment on above: Performed By: #### L 501.9310, L500.4050, L100.0100, L503.6030, L501.9520 #### [facility] [address] [place], [address] Platelet mean volume (Bld) [Entitic vol] 10.1 fL Normal 6.2-12.0 [facility] Comment on above: Performed By: #### L 501.9310, L500.4050, L100.0100, L503.6030, L501.9520 #### [facility] [address] [place], [address] Platelets (Bld) [#/Vol] 458 10*3/uL High 150-450 [facility] Comment on above: Performed By: #### L 501.9310, L500.4050, L100.0100, L503.6030, L501.9520 #### [facility] [address] [place], [address] RBC (Bld) [#/Vol] 4.75 10*6/uL Normal 4.2-5.4 [facility] Comment on above: Performed By: #### L 501.9310, L500.4050, L100.0100, L503.6030, L501.9520 #### [facility] [address] [place], [address] RDW SD 43.4 fl Normal 35.1-43.9 [facility] Comment on above: Performed By: #### L 501.9310, L500.4050, L100.0100, L503.6030, L501.9520 #### [facility] [address] [place], [address] WBC (Bld) [#/Vol] 11.4 10*3/uL High 4.4-11.0 [facility] Comment on above: Performed By: #### L 501.9310, L500.4050, L100.0100, L503.6030, L501.9520 #### [facility] [address] [place], [address] Emergency Department Summary on 12-29-2023 Emergency Department Summary [facility] Medical Records Department [address] [place] [address] Emergency Department Summary 12/29/23 MR#: [id number] Acct: [id number] Name: GABRIELLE COOPER Rep #: [id number] : 1995 28 From: Angelito Bauman MD PCP: ANSELMO Irene, COAGULATING DRYING SUPERVISOR-C Status:REG ER Location: ED HPI History of Present Illness Chief Complaint: General Illness Informant: patient Narrative Narrative: Patient states for the past 2 or 3 days she has felt lightheaded and malaised. She has had some tingling all over on occasion but not right now. She denies any fevers, cough, vomiting or diarrhea, other obvious causes of an illness. Denies any recent medication changes except for being on pantoprazole the last time she was here which was about a week ago, she states she had some epigastric discomfort still there but not as bad. She denies any disequilibrium or vertiginous symptoms. When standing up versus changing positions versus turning her head, none of the lightheadedness changes. She states it is a little better when she is lying down trying to sleep. States she also is having a white chunky vaginal discharge without itching or vaginal pain, and she noticed that her urine is cloudy but no dysuria. [facility] Medical History Vitamin D deficiency Iron deficiency Fatigue Anxiety Depression Hypothyroidism Body mass index [BMI] 45.0-49.9, adult Obesity VINEET I (cervical intraepithelial neoplasia I) Abnormal Pap smear of cervix PCOS (polycystic ovarian syndrome) Home Medications ???Medication ???Instructions ???Recorded ???Last Taken ???Type cholecalciferol (vitamin D3) 1,250 50,000 unit PO QWEEK 05/30/17 Unknown History mcg (50,000 unit) capsule levothyroxine 75 mcg tablet 75 mcg PO DAILY 05/30/17 Unknown History spironolactone 50 mg tablet 50 mg PO QAM 05/30/17 Unknown History esomeprazole magnesium 20 mg 20 mg PO DAILY #30 caps 12/29/21 Unknown Rx capsule,delayed release (Nexium) norethindrone (contraceptive) 0.35 0.35 mg PO QDAY #84 tabs 02/24/23 Unknown Rx mg tablet (Jacquelin) pantoprazole 40 mg tablet,delayed 40 mg PO DAILY #40 tabs 12/22/23 Unknown Rx release (Protonix) ferrous sulfate 325 mg (65 mg 325 mg PO DAILY 12/26/23 Unknown History iron) tablet fluconazole 150 mg tablet 150 mg PO .once #1 TAB 12/29/23 Unknown Rx Allergy/AdvReac Type Severity Reaction Status Date / Time clindamycin Allergy Rash Verified 12/29/23 19:37 Family History Grandfather Heart disease Mother Diabetes Grandmother Diabetes Surgical History History of tonsillectomy Social History current occupational status: employed current occupation: [employer] Smoking Status: Current some day smoker tobacco type: cigarettes alcohol intake: never substance use type: does not use caffeine: Yes what type of physical activity do you participate in: none frequency: 3-4 times per week seatbelt use: always do you feel safe at home: Yes additional social history: single ROS ROS ED Constitutional Constitutional ED: Reports fatigue; Denies chills or fever(s) Eyes Eyes: Denies change in vision or diplopia ENT ENT ED: Denies rhinorrhea or sore throat Cardiovascular Cardiovascular: Denies chest pain or palpitations Respiratory/Chest Respiratory/Chest: Denies cough or dyspnea Gastrointestinal Gastrointestinal: Denies abdominal pain, diarrhea, nausea or vomiting Genitourinary Genitourinary ED: Reports urinary frequency and other Details: cloudy urine; white heterogenous vaginal discharge w/o vaginal pain or pruritis ; Denies dysuria or hematuria Musculoskeletal Musculoskeletal: Denies back pain or neck pain Integumentary Denies abscess or rash Neurologic Neurologic: Reports paresthesias; Denies headache(s) or weakness Psychiatric Psychiatric: Denies suicidal thoughts EXAM Physical Exam Const Vital Signs: 12/29/23 19:34 12/29/23 19:37 12/29/23 21:34 Temperature 98 F Temperature Source Oral Pulse Rate 90 69 Respiratory Rate 18 14 Respiratory Effort Respiratory Pattern Blood Pressure 174/91 H 150/84 H Blood Pressure Mean 118 106 Pulse Ox 100 100 Oxygen Delivery Method Room Air Room Air Room Air 12/29/23 22:25 12/29/23 23:00 Temperature Temperature Source Pulse Rate 70 Respiratory Rate 20 H Respiratory Effort Normal Respiratory Pattern Normal Blood Pressure 155/83 H Blood Pressure Mean 107 Pulse Ox 100 Oxygen Delivery Method Room Air Positive well nourished, well developed and obese General Appearance ED: well developed and N (more content not included)... Normal [facility] Partial Thromboplast Timeon 12-29-2023 aPTT Coag (Bld) [Time] 30.9 s Normal 24.1-36.2 [facility] Comment on above: Performed By: #### L 501.9310, L500.4050, L100.0100, L503.6030, L501.9520 #### [facility] [address] [place], [address] ,Serum,hCG Quali.on 12-29-2023 HCG, SERUM QUAL Negative Normal [facility] Comment on above: Performed By: #### L 501.9310, L500.4050, L100.0100, L503.6030, L501.9520 #### [facility] [address] [place], [address] Urinalysis, Completeon 12-28 AMORPHOUS 1+ URATE Normal [facility] Comment on above: Order Comment: CLEAN CATCH Performed By: #### L 501.9310, L500.4050, L100.0100, L503.6030, L501.9520 #### [facility] [address] [place], [address] EPI,SQUAMOUS 5-10 SEEN Normal 5-10 [facility] Comment on above: Order Comment: CLEAN CATCH Performed By: #### L 501.9310, L500.4050, L100.0100, L503.6030, L501.9520 #### [facility] [address] [place], [address] Mucus Ql (Urine sed) 2+ /hpf Normal [facility] Comment on above: Order Comment: CLEAN CATCH Performed By: #### L 501.9310, L500.4050, L100.0100, L503.6030, L501.9520 #### [facility] [address] [place], [address] WBC 0-5 SEEN Normal 0-5 [facility] Comment on above: Order Comment: CLEAN CATCH Performed By: #### L 501.9310, L500.4050, L100.0100, L503.6030, L501.9520 #### [facility] [address] [place], [address] BACTERIA 0 SEEN Normal None Seen [facility] Comment on above: Order Comment: CLEAN CATCH Performed By: #### L 501.9310, L500.4050, L100.0100, L503.6030, L501.9520 #### [facility] [address] [place], [address] RBC 0 SEEN Normal 0-5 [facility] Comment on above: Order Comment: CLEAN CATCH Performed By: #### L 501.9310, L500.4050, L100.0100, L503.6030, L501.9520 #### [facility] [address] [place], [address] EMERGENCY REPORTon 4 EMERGENCY REPORT [facility] EMERGENCY ROOM REPORT NAME ACCOUNT SEX AGE ADMIT DISCHARGE PT MED. RECORD# NUMBER DATE DATE TYPE GABRIELLE COOPER [id number] F 28 12/18/23 12/18/23 3 R [id number] ROOM: ER DATE OF : 1995 DICTATING PHYSICIAN: Phillip Boykin CHIEF COMPLAINT: Shortness of breath and slow heart rate. HISTORY OF PRESENT ILLNESS: The patient states that about a month ago she had pneumonia and that turned into COVID. She seemed to improve and felt pretty well for a week or two but over the last couple of weeks has felt more short of breath, particularly with activity. She feels like she cannot catch her breath at times. Her heart rate goes up and down. She states that when she lies down her heart rate will drop sometimes into the 50s, which is unusual for her. She is not having any fever. She was given an inhaler to use, which she has used but does not notice much improvement. She presents for evaluation for these symptoms. She has not had nausea, vomiting or weight change. PAST MEDICAL HISTORY: She does not have any known heart or lung disease. She was told she might have asthma and to use the inhaler but has not been diagnosed with asthma previously. She does have a history of hypothyroidism. PAST SURGICAL HISTORY: She has had previous remote tonsillectomy. MEDICATIONS: Per medication reconciliation list. SOCIAL HISTORY: She lives at home. She is . She does not smoke or drink alcohol. REVIEW OF SYSTEMS: No recent injury or trauma, otherwise as mentioned. PHYSICAL EXAMINATION: GENERAL: This is a 28-year-old, heavy-built, pleasant female who does not appear toxic. She does seem mildly anxious. SKIN: Her skin is pink, warm and dry. HEENT: Examination is all within normal limits. NECK: Her neck is supple without adenopathy. LUNGS: Her lungs are clear without crackles or wheezes. CARDIAC: Cardiac examination is a regular rhythm without any ectopy, murmurs, gallops or rubs. ABDOMEN: Abdomen is soft and nontender. EXTREMITIES: She moves her extremities appropriately without any focal weaknesses. Good peripheral pulses and good capillary refill. VITAL SIGNS: Temperature is 99.2, pulse 80, respirations 19, blood pressure 146/88, and oxygen saturation 100%. DIAGNOSTIC DATA: The patient had an EKG which showed sinus rhythm, basically Page 1 of 2 GABRIELLE COOPER Emergency Room Report GABRIELLE COOPER : 1995 normal without any acute abnormalities. Chest x-ray was normal, as read by Radiology. Laboratory studies returned showing a CBC with a white count of 12,500, normal differential, and normal hemoglobin and hematocrit. Her d-dimer was normal at 207. CMP was all within normal limits with BUN and creatinine of 8 and 0.74. CRP is slightly elevated at 1.64. Anion gap is normal. Lactate was 0.9. BNP was 20. EMERGENCY DEPARTMENT COURSE AND TREATMENT: She was given a liter of IV fluids. The patient presents with some dyspnea of uncertain cause. Her oxygen saturations had been 99-100% here. I have not seen any significant arrhythmias, bradycardia or tachycardia. This may be consistent with some post-COVID syndrome type symptoms, but I see no evidence of any other acute cardiopulmonary or infection etiology. She is to follow up with her primary care provider within the next week if no improvement, returning if symptoms worsen. Dictated By: Phillip Boykin MD 12/18/23 18:57 JOB #: [id number] Transcribed By: kaia 12/19/23 08:50 Electronically signed by: DAVID Boykin M.D. 12/25/23 07:12 Page 2 of 2 GABRIELLE COOPER Emergency Room Report Normal [facility] Abdomen/Pelvis W IV Cont ONL Yon 12-22-2023 Abdomen/Pelvis W IV Cont ONLY [facility] Imaging Services [address] [place], [place] [address] Abdomen/Pelvis W IV Cont ONLY MR#: [id number] Acct: [id number] Name: GABRIELLE COOPER Rep #: [id number] : 1995 F 28 From: Mau Ko PCP: ANSELMO Irene, COAGULATING DRYING SUPERVISOR-C Status: REG ER Study: Abdomen/Pelvis W IV Cont ONLY Date of Exam: Exam# [id number] Ordering Dr: Stephen Alston DO [id number] STUDY: CT ABDOMEN AND PELVIS WITH CONTRAST REASON FOR EXAM: Female, 28 years old. epigastric pain, dark stools RADIATION DOSAGE (If Supplied By Facility): CTDIvol = ( 15.41 ) mGy, DLP = ( 1341.35 ) mGycm TECHNIQUE: Transaxial images were obtained from the dome of the diaphragm to the symphysis pubis without oral contrast. IV 100mL Isovue-370 was administered. Sagittal and coronal images were reconstructed. Individualized dose optimization techniques were used for this CT. The protocol utilizes one or more of the following dose reduction techniques: automated exposure control, adjustment of mA and/or kV according to patient size,and/or use of iterative reconstruction technique. COMPARISON: October 07, 2018 CT abdomen and pelvis FINDINGS: The visualized lung bases are unremarkable. The visualized portions of the heart are within normal limits. Normal liver. Normal gallbladder and extrahepatic biliary system. Normal spleen. Normal pancreas. Normal bilateral adrenal glands. Normal right kidney. Normal left kidney. Normal visualized stomach. Normal small intestine. Colonic diverticulosis. Residual oral contrast noted in the colon. The appendix is visualized and appears normal. Normal abdominal aorta. Normal inferior vena cava. Normal retroperitoneum. Normal urinary bladder. Possible hydrosalpinx on the right measuring 2.5 x 5.9 cm. Recommend pelvic ultrasound Normal abdominal wall. Normal osseous structures. CT/Abdomen/Pelvis W IV Cont ONLY IMPRESSION: Possible hydrosalpinx on the right. Otherwise no acute disease. Recommend pelvic ultrasound. Electronically Signed: Mau Spears MD at 16:43 EDT , CC: [facility] COAGULATING DRYING SUPERVISORBret Cerna; Dr. Stephen Alston, Project Engineering Manager: Signed Normal [facility] CBC W/Diff, Automatedon Absolute Lymph 2.69 X10 3/uL Normal 0.83-4.51 [facility] Comment on above: Performed By: #### L 501.9310, L500.4050, L100.0100, L503.6030, L501.9520 #### [facility] [address] [place], [address] Absolute Neut 7.7 X10 3/uL Normal 2.0-7.7 [facility] Comment on above: Performed By: #### L 501.9310, L500.4050, L100.0100, L503.6030, L501.9520 #### [facility] [address] [place], [address] Basophils/100 WBC (Bld) 0.7 % Normal 0-[address] [facility] Comment on above: Performed By: #### L 501.9310, L500.4050, L100.0100, L503.6030, L501.9520 #### [facility] [address] [place], [address] Eosinophils/100 WBC (Bld) 2.1 % Normal 0-5 [facility] Comment on above: Performed By: #### L 501.9310, L500.4050, L100.0100, L503.6030, L501.9520 #### [facility] [address] [place], [address] Erythrocyte distribution width (RBC) [Ratio] 14.2 % Normal 11.6-14.6 [facility] Comment on above: Performed By: #### L 501.9310, L500.4050, L100.0100, L503.6030, L501.9520 #### [facility] [address] [place], [address] Hematocrit (Bld) [Volume fraction] 38.2 % Normal 37-47 [facility] Comment on above: Performed By: #### L 501.9310, L500.4050, L100.0100, L503.6030, L501.9520 #### [facility] [address] [place], [address] Hemoglobin (Bld) [Mass/Vol] 12.3 g/dL Normal 12.0-15.0 [facility] Comment on above: Performed By: #### L 501.9310, L500.4050, L100.0100, L503.6030, L501.9520 #### [facility] [address] [place], [address] IG% 0.400 Normal 0.0-0.9 [facility] Comment on above: Result Comment: IG% - Immature Granulocytes (promyelocytes, myelocytes and metamyelocytes) > 1% indicates that a LEFT SHIFT is Present. Performed By: #### L 501.9310, L500.4050, L100.0100, L503.6030, L501.9520 #### [facility] [address] [place], [address] Lymphocytes/100 WBC (Bld) 23.8 % Normal 19-41 [facility] Comment on above: Performed By: #### L 501.9310, L500.4050, L100.0100, L503.6030, L501.9520 #### [facility] [address] [place], [address] MCH (RBC) [Entitic mass] 27.3 pg Normal 27.0-32.0 [facility] Comment on above: Performed By: #### L 501.9310, L500.4050, L100.0100, L503.6030, L501.9520 #### [facility] [address] [place], [address] MCHC (RBC) [Mass/Vol] 32.2 g/dL Normal 32-36 [facility] Comment on above: Performed By: #### L 501.9310, L500.4050, L100.0100, L503.6030, L501.9520 #### [facility] [address] [place], [address] MCV (RBC) [Entitic vol] 84.9 fL Normal 81-99 [facility] Comment on above: Performed By: #### L 501.9310, L500.4050, L100.0100, L503.6030, L501.9520 #### [facility] [address] [place], [address] Monocytes/100 WBC (Bld) 4.9 % Normal 0-[address] [facility] Comment on above: Performed By: #### L 501.9310, L500.4050, L100.0100, L503.6030, L501.9520 #### [facility] [address] [place], [address] Neutrophils/100 WBC (Bld) 68.1 % Normal 47-70 [facility] Comment on above: Performed By: #### L 501.9310, L500.4050, L100.0100, L503.6030, L501.9520 #### [facility] [address] [place], [address] Nucleated RBC (Bld) [#/Vol] 0 10*3/uL Normal 0-5 [facility] Comment on above: Performed By: #### L 501.9310, L500.4050, L100.0100, L503.6030, L501.9520 #### [facility] [address] [place], [address] Platelet mean volume (Bld) [Entitic vol] 10.1 fL Normal 6.2-12.0 [facility] Comment on above: Performed By: #### L 501.9310, L500.4050, L100.0100, L503.6030, L501.9520 #### [facility] [address] [place], [address] Platelets (Bld) [#/Vol] 425 10*3/uL Normal 150-450 [facility] Comment on above: Performed By: #### L 501.9310, L500.4050, L100.0100, L503.6030, L501.9520 #### [facility] [address] [place], [address] RBC (Bld) [#/Vol] 4.50 10*6/uL Normal 4.2-5.4 [facility] Comment on above: Performed By: #### L 501.9310, L500.4050, L100.0100, L503.6030, L501.9520 #### [facility] [address] [place], [address] RDW SD 43.6 fl Normal 35.1-43.9 [facility] Comment on above: Performed By: #### L 501.9310, L500.4050, L100.0100, L503.6030, L501.9520 #### [facility] [address] [place], [address] WBC (Bld) [#/Vol] 11.3 10*3/uL High 4.4-11.0 [facility] Comment on above: Performed By: #### L 501.9310, L500.4050, L100.0100, L503.6030, L501.9520 #### [facility] [address] [place], [address] Comprehensive Metabolic Prof ilon 12-22-2023 Albumin [Mass/Vol] 3.6 g/dL Normal 3.2-5.0 [facility] Comment on above: Performed By: #### L 501.9310, L500.4050, L100.0100, L503.6030, L501.9520 #### [facility] [address] [place], [address] Albumin/Globulin [Mass ratio] 1.0 {ratio} Normal 0.9-2.4 [facility] Comment on above: Performed By: #### L 501.9310, L500.4050, L100.0100, L503.6030, L501.9520 #### [facility] [address] [place], [address] ALK P 95 U/L Normal 45-117 [facility] Comment on above: Performed By: #### L 501.9310, L500.4050, L100.0100, L503.6030, L501.9520 #### [facility] [address] [place], [address] ALT [Catalytic activity/Vol] 17 U/L Normal 13-56 [facility] Comment on above: Performed By: #### L 501.9310, L500.4050, L100.0100, L503.6030, L501.9520 #### [facility] [address] [place], [address] AST [Catalytic activity/Vol] 12 U/L Low 15-37 [facility] Comment on above: Performed By: #### L 501.9310, L500.4050, L100.0100, L503.6030, L501.9520 #### [facility] [address] [place], [address] Bilirubin [Mass/Vol] 0.40 mg/dL Normal 0.20-1.00 [facility] Comment on above: Result Comment: For patients on eltrombopag therapy, use of Dimension [place] TBIL is not recommended. Performed By: #### L 501.9310, L500.4050, L100.0100, L503.6030, L501.9520 #### [facility] [address] [place], [address] BUN/CRE 12.7 RATIO Normal 10-20 [facility] Comment on above: Performed By: #### L 501.9310, L500.4050, L100.0100, L503.6030, L501.9520 #### [facility] [address] [place], [address] CA,Total 9.6 mg/dL Normal 8.5-10.1 [facility] Comment on above: Performed By: #### L 501.9310, L500.4050, L100.0100, L503.6030, L501.9520 #### [facility] [address] [place], [address] Chloride [Moles/Vol] 109 mmol/L High 98-107 [facility] Comment on above: Performed By: #### L 501.9310, L500.4050, L100.0100, L503.6030, L501.9520 #### [facility] [address] [place], [address] CO2 [Moles/Vol] 23.0 mmol/L Normal 21.0-32.0 [facility] Comment on above: Performed By: #### L 501.9310, L500.4050, L100.0100, L503.6030, L501.9520 #### [facility] [address] [place], [address] Creatinine [Mass/Vol] 0.79 mg/dL Normal 0.55-1.02 [facility] Comment on above: Result Comment: The validity of the calculated GFR GFRAA in patients over 70 years has not been determined. Clinical correlation is essential. Performed By: #### L 501.9310, L500.4050, L100.0100, L503.6030, L501.9520 #### [facility] [address] [place], [address] ECRCL 143.87 ml/min Normal [facility] Comment on above: Performed By: #### L 501.9310, L500.4050, L100.0100, L503.6030, L501.9520 #### [facility] [address] [place], [address] EST GFR - AA 112 mL/min Normal >60 [facility] Comment on above: Result Comment: Afri can Malagasy GFR Calc Performed By: #### L 501.9310, L500.4050, L100.0100, L503.6030, L501.9520 #### [facility] [address] [place], [address] GAP 7 Normal 5-15 [facility] Comment on above: Performed By: #### L 501.9310, L500.4050, L100.0100, L503.6030, L501.9520 #### [facility] [address] [place], [address] GFR/1.73 sq M.predicted among non-blacks MDRD (S/P/Bld) [Vol rate/Area] 92 mL/min/{1.73_m2} Normal >60 [facility] Comment on above: Result Comment: Non- GFR Calc Performed By: #### L 501.9310, L500.4050, L100.0100, L503.6030, L501.9520 #### [facility] [address] [place], [address] Globulin (S) [Mass/Vol] 3.7 g/dL Normal 2.2-4.2 [facility] Comment on above: Performed By: #### L 501.9310, L500.4050, L100.0100, L503.6030, L501.9520 #### [facility] [address] [place], [address] Glucose [Mass/Vol] 95 mg/dL Normal 74-106 [facility] Comment on above: Performed By: #### L 501.9310, L500.4050, L100.0100, L503.6030, L501.9520 #### [facility] [address] [place], [address] Potassium [Moles/Vol] 3.6 mmol/L Normal 3.5-5.1 [facility] Comment on above: Performed By: #### L 501.9310, L500.4050, L100.0100, L503.6030, L501.9520 #### [facility] [address] [place], [address] Sodium [Moles/Vol] 139 mmol/L Normal 136-145 [facility] Comment on above: Performed By: #### L 501.9310, L500.4050, L100.0100, L503.6030, L501.9520 #### [facility] [address] [place], [address] T PROT 7.3 g/dL Normal 6.4-8.2 [facility] Comment on above: Performed By: #### L 501.9310, L500.4050, L100.0100, L503.6030, L501.9520 #### [facility] [address] 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 Stephen Alston DO on 12/22/23 at 1654 Rectal exam performed and was noted to have dark stool this was sent to the lab. 12/22/23 1654 Cosigner Signature (if applicable): cc: ANSELMO COAGULATING DRYING SUPERVISOR-C Blanka Cerna * Signed HPI History of Present Illness Chief Complaint: GI Bleed Narrative Narrative: Patient is a 28-year-old female past medical history anxiety, depression, hypothyroidism, hypertension, PCOS who presents to the emergency department the chief complaint of abdominal pain for approximately 2 weeks ever since she discontinued her antibiotic that she was on for an infected tooth and for dark stools that she noted last night and then today. Patient denies any blood thinning medications. Patient states her pain is worsening in her upper portion of her abdomen which also prompted her to come here for further evaluation management. She states that nothing like this has happened before. [facility] Medical History Anxiety Depression Hypothyroidism Smoker Elevated blood pressure reading Abnormal Pap smear of cervix PCOS (polycystic ovarian syndrome) Thyroid disease Home Medications ???Medication ???Instructions ???Recorded ???Last Taken ???Type cholecalciferol (vitamin D3) 1,250 50,000 unit PO QWEEK 05/30/17 Unknown History mcg (50,000 unit) capsule levothyroxine 75 mcg tablet 75 mcg PO DAILY 05/30/17 Unknown History metformin 500 mg tablet 500 mg PO DAILY 05/30/17 Unknown History spironolactone 50 mg tablet 50 mg PO QAM 05/30/17 Unknown History esomeprazole magnesium 20 mg 20 mg PO DAILY #30 caps 12/29/21 Unknown Rx capsule,delayed release (Nexium) ondansetron 4 mg disintegrating 4 mg PO Q8H PRN nausea and 12/29/21 Unknown Rx tablet vomiting #10 tabs norethindrone (contraceptive) 0.35 0.35 mg PO QDAY #84 tabs 02/24/23 Unknown Rx mg tablet (Jacquelin) doxycycline hyclate 100 mg capsule 100 mg PO BID 10 days #20 caps 07/24/23 Unknown Rx azelastine 137 mcg (0.1 %) nasal 2 spray intranasal BID #30 mL 11/22/23 Unknown Rx spray dexamethasone 6 mg tablet 6 mg PO DAILY 10 days #10 tabs 11/22/23 Unknown Rx pantoprazole 40 mg tablet,delayed 40 mg PO DAILY #40 tabs 12/22/23 Unknown Rx release (Protonix) Allergy/AdvReac Type Severity Reaction Status Date / Time clindamycin Allergy Rash Verified 12/22/23 13:15 Family History Grandfather Heart disease Mother Diabetes Grandmother Diabetes Surgical History History of tonsillectomy Social History current occupational status: employed current occupation: [employer] Smoking Status: Current every day smoker tobacco type: cigarettes alcohol intake: never substance use type: does not use caffeine: Yes what type of physical activity do you participate in: none frequency: 3-4 times per week seatbelt use: always do you feel safe at home: Yes additional social history: single ROS ROS ED ROS Narrative Constitutional: Denies any fevers, chills, headaches, lightheadedness, dizziness Cardiovascular: Denies chest pain or palpitations Respiratory: Denies coughing wheezing shortness of breath Abdomen: Complains of abdominal pain as noted above as well as dark stools as noted above denies any vomiting : Denies any urinary symptoms Neurological: Denies any numbness, weakness, tingling Musculoskeletal: Denies back pain Skin: Denies rashes or lesions EXAM Physical Exam Narrative Exam Narrative: General: Patient was lying in bed rest comfortably did not appear to be in acute distress Head: Atraumatic, normocephalic Eyes: PERRL bilaterally, EOMI bilateral, no conjunctival injection noted Neck: Soft, supple, trachea midline Cardiovascular: Regular rate and rhythm no murmurs gallops rubs noted Respiratory: Clear to auscultation bilaterally no rales rhonchi or wheezes noted Abdomen: Soft, nondistended, nontender to palpation, bowel sounds present x 4 Extremities: +5/5 strength noted in the bilateral upper and lower extremities Neurological: Patient following commands knew that she was at [facility] years 2023 Skin: Warm, dry, intact Const Vital Signs: 12/22/23 13:15 12/22/23 15:25 Temperature 97 F L Temperature Source Temporal Pulse Rate 96 83 Respiratory Rate 18 14 Blood Pressure 93/75 141/93 H Blood Pressure M (more content not included)... Normal [facility] Lipaseon 12-22-2023 Lipase [Catalytic activity/Vol] 27 U/L Normal 13-75 [facility] Comment on above: Result Comment: Traci tuttle note: LIPASE revised reference range effective 22. New Lipase methodology. Expected to produce lower values than the previous assay method. NEW Reference Range: 13 - 75 U/L Performed By: #### L 501.9310, L500.4050, L100.0100, L503.6030, L501.9520 #### [facility] [facility] [address] [place], [address] ,Urineon 12-22-2023 Beta HCG ( test) Ql (U) Negative Normal [facility] Comment on above: Order Comment: CLEAN CATCH Result Comment: Very dilute urine specimens, as indicated by a low specific gravity, may not contain admitting representative levels of hCG. If is still suspected, a first morning urine specimen should be collected 48 hours later and tested. Performed By: #### L 501.9310, L500.4050, L100.0100, L503.6030, L501.9520 #### [facility] [address] [place], [address] Stool Occult Blood iFOBon STOB Negative Normal [facility] Comment on above: Performed By: #### L 501.9310, L500.4050, L100.0100, L503.6030, L501.9520 #### [facility] [address] [place], [address] Urinalysis, Completeon 12-21 BACTERIA 1+ /hpf Normal None Seen [facility] Comment on above: Order Comment: CLEAN CATCH Performed By: #### L 501.9310, L500.4050, L100.0100, L503.6030, L501.9520 #### [facility] [address] [place], [address] EPI,SQUAMOUS 0-5 SEEN Normal 5-10 [facility] Comment on above: Order Comment: CLEAN CATCH Performed By: #### L 501.9310, L500.4050, L100.0100, L503.6030, L501.9520 #### [facility] [address] [place], [address] Mucus Ql (Urine sed) 0 SEEN Normal [facility] Comment on above: Order Comment: CLEAN CATCH Performed By: #### L 501.9310, L500.4050, L100.0100, L503.6030, L501.9520 #### [facility] [address] [place], [address] RBC 0 SEEN Normal 0-5 [facility] Comment on above: Order Comment: CLEAN CATCH Performed By: #### L 501.9310, L500.4050, L100.0100, L503.6030, L501.9520 #### [facility] [address] [place], [address] WBC 0 SEEN Normal 0-5 [facility] Comment on above: Order Comment: CLEAN CATCH Performed By: #### L 501.9310, L500.4050, L100.0100, L503.6030, L501.9520 #### [facility] [address] [place], [address] C-REACTIVE PROTEINon 024 CRP 1.64 mg/dl High 0.00 - 0.90 [facility] Comment on above: Performed By: #### 2 94290 #### [facility],[address] [place] [address] 15750 CBC + DIFFon 12-18-2023 Baso # 0.02 x10EE3/UL Normal 0.00 - 0.10 [facility] Comment on above: Performed By: #### 2 79855 #### [facility],[address] [place] [address] 30201 Basophils/100 WBC (Bld) 0.1 % Normal 0.0 - 2.0 [facility] Comment on above: Performed By: #### 2 65683 #### [facility],[address] [place] [address] 84266 CBC + DIFF Normal [facility] Comment on above: Result Comment: CBC- COMPLETE BLOOD COUNT Performed By: #### 2 54863 #### [facility],[address] [place] [address] 13643 EO # 0.16 x10EE3/UL Normal 0.00 - 0.50 [facility] Comment on above: Performed By: #### 2 58693 #### [facility],[address] [place] [address] 40628 Eosinophils/100 WBC (Bld) 1.3 % Normal 0.0 - 7.0 [facility] Comment on above: Performed By: #### 2 13219 #### [facility],[address] [place] [address] 93088 Erythrocyte distribution width (RBC) [Ratio] 14.7 % Normal 12.0 - 15.6 [facility] Comment on above: Performed By: #### 2 30297 #### [facility],[address] [place] [address] Hematocrit (Bld) [Volume fraction] 35.7 % Normal 34.0 - 46.0 [facility] Comment on above: Performed By: #### 2 93920 #### [facility],[address] [place] [address] Hemoglobin (Bld) [Mass/Vol] 12.2 g/dL Normal 12.0 - 16.0 [facility] Comment on above: Performed By: #### 2 94473 #### [facility],[address] [place] [address] Lymph # 2.84 x10EE3/UL High 0.80 - 2.80 [facility] Comment on above: Performed By: #### 2 72742 #### [facility],[address] [place] [address] Lymphocytes/100 WBC (Bld) 22.8 % Normal 20.0 - 45.0 [facility] Comment on above: Performed By: #### 2 83487 #### [facility],[address] [place] [address] MANUAL DIFF N/A Normal [facility] Comment on above: Performed By: #### 2 91771 #### [facility],[address] [place], [place] [address] MCH (RBC) [Entitic mass] 28 pg Normal 27 - 33 [facility] Comment on above: Performed By: #### 2 55964 #### [place] [address] MCHC 34 X10 3 Normal 32 - 36 [facility] Comment on above: Performed By: #### 2 84141 #### [place] [address] MCV (RBC) [Entitic vol] 83 fL Normal 80 - 99 [facility] Comment on above: Performed By: #### 2 01925 #### [place] [id number] [place]vier # 0.47 x10EE3/UL Normal 0.20 - 1.00 [facility] Comment on above: Performed By: #### 2 72039 #### [place] [address] MONOS % 3.8 % Normal 0.0 - 10.0 [facility] Comment on above: Performed By: #### 2 01974 #### [place] [id number] Morphology Everardo (Bld) [Interp] N/A Normal [facility] Comment on above: Performed By: #### 2 26651 #### [place] [address] Neut # 8.98 x10EE3/UL High 1.50 - 7.10 [facility] Comment on above: Performed By: #### 2 93989 #### [place] [address] Neutrophils/100 WBC (Bld) 72.0 % Normal 46.0 - 76.0 [facility] Comment on above: Performed By: #### 2 44890 #### [facility],[address] [place] [address] PLATELET 407 x10EE3/UL Normal 150 - 450 [facility] Comment on above: Performed By: #### 2 42980 #### [place] [id number] Platelet mean volume (Bld) [Entitic vol] 7.6 fL Normal 6.6 - 10.5 [facility] Comment on above: Result Comment: AUTO MATED DIFFERENTIAL Performed By: #### 2 67326 #### [facility],[address] [place] [address] 45738 RBC 4.31 x 10EE6/UL Normal 4.10 - 5.30 [facility] Comment on above: Performed By: #### 2 52425 #### [facility],[address] [place] [address] 61336 WBC 12.5 x 10EE3/UL High 4.5 - 10.8 [facility] Comment on above: Performed By: #### 2 09096 #### [facility],[address] [place] [address] 73789 CHEST 2 VIEWSon 12-18-2023 CHEST 2 VIEWS [place] [address] Patient: GABRIELLE COOPER Phone#: : 1995 Age: 28 Gender: F Pt. Type: ER Account: [id number] Location: [facility] Ordering: PHILLIP BOYKIN Exam Date: 12/18/2023/16:53 Family Phys: BLANKA CERNA Charge Code: 870940 Physician: [place] Order #: [id number] Dose#: PROCEDURE: X-RAY CHEST 2 VIEWS COMPARISON: None. INDICATIONS: Shortness of breath. FINDINGS: LUNGS: Normal. No significant pulmonary parenchymal abnormalities. VASCULATURE: Normal. Unremarkable pulmonary vasculature. CARDIAC: Normal. No cardiac silhouette abnormality or cardiomegaly. MEDIASTINUM: Normal. No visible mass or adenopathy. PLEURA: Normal. No effusion or pleural thickening. BONES: Normal. No fracture or visible bony lesion. OTHER: Negative. CONCLUSION: No acute disease. Dictated by: Cayla Sal MD on 12/18/2023 at 17:07 Approved by: Cayla Sal MD on 12/18/2023 at 17:13 Normal [facility] CMP with eGFRon 12-18-2023 AGE 28 years Normal [facility] Comment on above: Performed By: #### 2 44521 #### [facility],[address] [place] [address] 62664 Albumin [Mass/Vol] 3.4 g/dL Normal 3.4 - 5.0 [facility] Comment on above: Performed By: #### 2 86935 #### [facility],[address] [place] [address] 76946 Albumin/Globulin [Mass ratio] 0.9 {ratio} Normal 0.9 - 1.6 [facility] Comment on above: Performed By: #### 2 35647 #### [facility],[address] [place] [address] 34325 ALK PHOS 92 U/L Normal 46 - 116 [facility] Comment on above: Performed By: #### 2 06874 #### [facility],[address] [place] [address] 15932 ALT [Catalytic activity/Vol] 18 U/L Normal 16 - 63 [facility] Comment on above: Performed By: #### 2 25953 #### [facility],[address] [place] [address] 18228 Anion gap [Moles/Vol] 15 mmol/L Normal 10 - 20 [facility] Comment on above: Performed By: #### 2 42557 #### [facility],[address] [place] [address] 65540 AST [Catalytic activity/Vol] 14 U/L Normal 13 - 39 [facility] Comment on above: Performed By: #### 2 39463 #### [facility],[address] [place] [address] 27113 B/C RATIO 11 ratio Normal 0 - 30 [facility] Comment on above: Performed By: #### 2 42501 #### [facility],[address] [place] [address] 71675 Bilirubin [Mass/Vol] 0.4 mg/dL Normal 0.2 - 1.0 [facility] Comment on above: Performed By: #### 2 24964 #### [facility],[address] [place] [address] 92503 Calcium [Mass/Vol] 9.1 mg/dL Normal 8.5 - 10.1 [facility] Comment on above: Performed By: #### 2 95403 #### [facility],[address] [place] [address] 70094 Chloride [Moles/Vol] 105 mmol/L Normal 98 - 107 [facility] Comment on above: Performed By: #### 2 18631 #### [facility],[address] [place] [address] 24603 CMP with eGFR Normal [facility] Comment on above: Result Comment: COMP REHENSIVE METABOLIC PANEL Performed By: #### 2 85314 #### [facility],[address] [place] [address] 20283 CO2 [Moles/Vol] 22.7 mmol/L Normal 21.0 - 32.0 [facility] Comment on above: Performed By: #### 2 62934 #### [facility],[address] [place], [place] [address] Creatinine [Mass/Vol] 0.74 mg/dL Normal 0.55 - 1.02 [facility] Comment on above: Performed By: #### 2 37123 #### [facility],[address] [place] [address] 57325 GFR/1.73 sq M.predicted among non-blacks MDRD (S/P/Bld) [Vol rate/Area] mL/min/{1.73_m2} Normal 60 - 999 [facility] Comment on above: Performed By: #### 2 25154 #### [facility],[address] [place], [place] [address] Result Comment: ACCO RDING TO THE NATIONAL KIDNEY DISEASE EDUCATION PROGRAM(NKDE), A NORMAL eGFR IS A VALUE GREATER THAN OR EQUAL TO 60 ML/MIN/1.73 SQ METERS. CHRONIC KIDNEY DISEASE: <60mL/MIN/1.73 SQ METERS KIDNEY FAILURE: <15mL/MIN/1.73 SQ METERS THIS TEST SHOULD ONLY BE USED FOR PATIENTS 18 YEARS OF AGE AND OLDER. Globulin (S) [Mass/Vol] 3.6 g/dL Normal 1.5 - 3.8 [facility] Comment on above: Performed By: #### 2 38386 #### [facility],[address] [place] [address] 55210 Glucose [Mass/Vol] 89 mg/dL Normal 74 - 106 [facility] Comment on above: Performed By: #### 2 00880 #### [facility],[address] [place] [address] 78459 Potassium [Moles/Vol] 3.6 mmol/L Normal 3.5 - 5.1 [facility] Comment on above: Performed By: #### 2 36964 #### [facility],[address] [place] [address] 43704 Protein [Mass/Vol] 7.0 g/dL Normal 6.4 - 8.2 [facility] Comment on above: Performed By: #### 2 81451 #### [facility],[address] [place] [address] 40005 Sodium [Moles/Vol] 139 mmol/L Normal 136 - 145 [facility] Comment on above: Performed By: #### 2 32184 #### [facility],[address] [place] [address] 57683 Urea nitrogen [Mass/Vol] 8 mg/dL Normal 7 - 18 [facility] Comment on above: Performed By: #### 2 53671 #### [facility],[address] [place] [address] 42177 D-DIMER, QUANTITATIVEon 11-20 D-DIMER QUANT 207 ng/ml Normal 0 - 230 [facility] Comment on above: Performed By: #### 2 26195 #### [facility],[address] [place] [address] 47065 D-DIMER, QUANTITATIVE Normal [facility] Comment on above: Result Comment: MIKE T D-DIMER Performed By: #### 2 68022 #### [facility],[address] [place] [address] 30619 LACTATEon 12-18-2023 Lactate [Moles/Vol] 0.9 mmol/L Normal 0.4 - 2.0 [facility] Comment on above: Performed By: #### 2 38650 #### [facility],[address] [place] [address] 90930 NT-proBNPon 12-18-2023 Natriuretic peptide B (Bld) [Mass/Vol] 20 pg/mL Normal 0 - 125 [facility] Comment on above: Performed By: #### 2 33902 #### [facility],[address] [place] [address] 99462 CNOVon 08-29-2023 CNOV Office Visit (UCWSTR ) GABRIELLE COOPER ([id number]) 1995 F Date Time Provider Department 08/29/23 11:45 AM JENNY MARTINO [facility] During your visit today, we recorded the following information about you: Temperature Pulse Respiration Blood pressure 98 degrees 85/minute 21/minute 124/76 Weight 129.3 kg Jenny Martino APRN.CNP 08/29/2023 12:00 PM Signed Subjective HPI HPI Gabrielle Cooper is a 28 year old female who presents today for CC of toothache. This started 1 week ago. Has tried otc medication for relief. Symptoms are worsened by nothing. Risk factors hx of poor dental health. Denies possibility of being . .Patient presents with: Dental Problem: Possible tooth infection lower left side x 1 week PAST MEDICAL HISTORY Diagnosis Date Hypothyroidism PCOS (polycystic ovarian syndrome) Pre-diabetes PAST SURGICAL HISTORY Procedure Laterality Date TONSILLECTOMY AND ADENOIDECTOMY HX ALLERGIES Clindamycin MEDICATIONS Norethindrone, Contraceptive, 0.35 mg tablet TAKE 1 TABLET BY MOUTH EVERY DAY. START DAY 1 OF MENSTRUAL CYCLE ibuprofen (MOTRIN) 600 mg tablet Take 1 tablet by mouth every 6 hours as needed for Pain. METFORMIN HCL (METFORMIN ORAL) Take by mouth. CALCIUM CARBONATE/VITAMIN D3 (VITAMIN D-3 ORAL) Take by mouth. LEVOTHYROXINE SODIUM (LEVOTHYROXINE ORAL) Take by mouth. amoxicillin (AMOXIL) 875 mg tablet Take 1 tablet by mouth two times a day for 10 days. guaiFENesin (MUCINEX) 600 mg 12 hr tablet Take 2 tablets by mouth twice daily. (Patient not taking: Reported on 06/28/2023) FAMILY HISTORY Problem Relation Age of Onset Diabetes Mother Social History Tobacco Use Smoking status: Every Day Packs/day: .5 Types: Cigarettes Start date: 04/21/2012 Smokeless tobacco: Never Substance Use Topics Alcohol use: No Drug use: No Review of Systems Constitutional: Negative for fever. HENT: Negative for congestion, ear pain, nosebleeds and sore throat. Respiratory: Negative for cough, shortness of breath and wheezing. Musculoskeletal: Negative for neck pain. Objective Blood pressure 124/76, pulse 85, temperature 36.7 ?C (98 ?F), resp. rate 21, weight 129.3 kg (285 lb 0.9 oz), last menstrual period 12/08/2021, SpO2 98%. Physical Exam Constitutional: General: She is not in acute distress. Appearance: She is not toxic-appearing or diaphoretic. HENT: Head: Normocephalic and atraumatic. Mouth/Throat: Lips: [place]. Mouth: Mucous membranes are moist. Pulmonary: Effort: Pulmonary effort is normal. No accessory muscle usage or respiratory distress. Lymphadenopathy: Cervical: No cervical adenopathy. Right cervical: No superficial cervical adenopathy. Left cervical: No superficial cervical adenopathy. Neurological: Mental Status: She is alert and oriented to person, place, and time. ASSESSMENT/PLAN: 1. Toothache - ICD9: 525.9, ICD10: K08.89 Take medication as ordered See dentist claudette Follow up if signs of infection worsen - AMOXICILLIN 875 MG TABLET Jenny Martino APRN.ASBESTOS REMOVER Allergies As of Date: 08/29/2023 Noted Allergy Reaction CLINDAMYCIN 04/18/2016 2 - Rash Date Reviewed: 08/29/2023 Reviewed by: Dayana Suarez MA - Fully Assessed Reason for Visit: Dental Problem [31] Cmt: Possible tooth infection lower left side x 1 week Primary Visit Diagnosis:Toothache [K08.89] Order(s):amoxicillin (AMOXIL) 875 mg tabletTake 1 tablet by mouth two times a day for 10 days.Disp: 20 tabletRfl: 0 Prescriptions as of 08/29/2023 - amoxicillin (AMOXIL) 875 mg tablet Take 1 tablet by mouth two times a day for 10 days. - Norethindrone, Contraceptive, 0.35 mg tablet TAKE 1 TABLET BY MOUTH EVERY DAY. START DAY 1 OF MENSTRUAL CYCLE - guaiFENesin (MUCINEX) 600 mg 12 hr tablet Take 2 tablets by mouth twice daily. - ibuprofen (MOTRIN) 600 mg tablet Take 1 tablet by mouth every 6 hours as needed for Pain. - METFORMIN HCL (METFORMIN ORAL) Take by mouth. - CALCIUM CARBONATE/VITAMIN D3 (VITAMIN D-3 ORAL) Take by mouth. - LEVOTHYROXINE SODIUM (LEVOTHYROXINE ORAL) Take by mouth. Problem List As Of Date 08/29/2023 Noted Resolved Irregular menstrual cycle [N92.6] 04/18/2016 Acquired hypothyroidism [E03.9] 04/18/2016 Prescriptions ordered this encounter Disp Refills Start End AMOXICILLIN 875 MG TABLET 20 t* 0 08/29/2023 09/08/2023 Route: ORAL Sig: Take 1 tablet by mouth two times a day for 10 days. Encounter Status:Closed by JENNY MARTINO on 08/29/23 Normal [facility] DIP, URINE (POC)on 2023 BILIRUBIN UA (POCT) Negative Negative [facility] CLARITY UA (POCT) Clear [facility] COLOR UA (POCT) Dark yellow [facility] GLUCOSE UA (POCT) Negative Negative mg/dL [facility] Hemoglobin Ql (U) Negative Negative [facility] KETONE UA (POCT) Negative Negative mg/dL [facility] LEUKOCYTES UA (POCT) Negative Negative [facility] NITRITE UA (POCT) Negative Negative [facility] PH UA (POCT) 6.0 4.5 - 8.[address] [facility] Protein Ql (U) Negative Negative mg/dL [facility] SPECIFIC GRAVITY UA (POCT) >=1.030 1.005 - 1.[address] [facility] UROBILINOGEN UA (POCT) 0.2 E.U./dL Kalina l E.U./dL [facility] Laboratory - Chemistry and C hemistry - challengeOrdered By: Blanka Cerna on 05-30-2022 Free T4 [Mass/Vol] 1.25 ng/dL 0.76-1.46 [facility] No Panel InformationOrdered By: Blanka Cerna on 05-30-2022 Thyroid Stimulating Hormone (TSH) 2.47 uIU/mL 0.358-3.74 [facility] Absolute lymphocyte counton 12-29-2021 Lymphocytes Auto (Unsp spec) [#/Vol] 3.01 10*3/uL 0.83-4.51 [facility] Work Phone: Basophil percentageon 2021 Basophils/100 WBC (Bld) 0.5 % 0-[address] [facility] Work Phone: Bilirubin [Mass/Vol] 0.40 mg/dL 0.20-1.00 [facility] Work Phone: Comment on above: For patients on eltr ombopag therapy, use of Dimension [place] TBIL is not recommended. Chloride [Moles/Vol] 106 mmol/L 98-107 [facility] Work Phone: Eosinophils/100 WBC (Bld) 1.5 % 0-5 [facility] Work Phone: Glucose [Mass/Vol] 89 mg/dL 74-106 [facility] Work Phone: Neutrophils (Bld) [#/Vol] 9.8 10*3/uL 2.0-7.7 [facility] Work Phone: Neutrophils/100 WBC (Bld) 71.2 % 47-70 [facility] Work Phone: Potassium [Moles/Vol] 4.1 mmol/L 3.5-5.1 [facility] Work Phone: Protein [Mass/Vol] 6.9 g/dL 6.4-8.2 [facility] Work Phone: Sodium [Moles/Vol] 138 mmol/L 136-145 [facility] Work Phone: WBC (Bld) [#/Vol] 13.8 10*3/uL 4.4-11.0 [facility] Work Phone: Basophil percentage 0-5 SEEN /hpf 0-5 [facility] Work Phone: Beta hCG serum qualon 2021 Beta HCG ( test) Ql Negative [facility] Work Phone: Bilirubin Test strip Ql (U)o n 12-29-2021 Bilirubin Ql (U) Negative Negative [facility] Work Phone: Blood erythrocytes count (nu mber/volume)on 12-29-2021 RBC (Bld) [#/Vol] 4.67 10*6/uL 4.2-5.4 [facility] Work Phone: Blood hemoglobin measurement (mass/volume)on 12-29-2021 Hemoglobin (Bld) [Mass/Vol] 12.9 g/dL 12.0-15.0 [facility] Work Phone: Blood lymphocytes/100 leukoc yteson 12-29-2021 Lymphocytes/100 WBC (Bld) 21.8 % 19-41 [facility] Work Phone: Blood monocytes/100 leukocyt eson 12-29-2021 Monocytes/100 WBC (Bld) 4.6 % 0-[address] [facility] Work Phone: Blood platelet mean volumeon 12-29-2021 Platelet mean volume (Bld) [Entitic vol] 10.2 fL 6.2-12.0 [facility] Work Phone: Determination of erythrocyte mean corpuscular volume (MCV)on 12-29-2021 MCV (RBC) [Entitic vol] 86.9 fL 81-[address] [facility] Work Phone: Direct bilirubinon Bilirubin.direct [Mass/Vol] mg/dL 0.00-0.30 [facility] Work Phone: [phone] Hematocrit Auto (Bld) [Volum e fraction]on 12-29-2021 Hematocrit (Bld) [Volume fraction] 40.6 % 37-47 [facility] Work Phone: [phone] Ketones Test strip Ql (U)on 12-29-2021 Ketones Ql (U) Negative Negative [facility] Work Phone: Laboratory - Chemistry and C hemistry - challengeon 12-29-2021 ALP [Catalytic activity/Vol] 86 U/L 45-117 [facility] Work Phone: [phone] ALT [Catalytic activity/Vol] 19 U/L 13-56 [facility] Work Phone: [phone] CO2 [Moles/Vol] 24.0 mmol/L 21.0-32.0 [facility] Work Phone: [phone] Globulin (S) [Mass/Vol] 3.5 g/dL 2.2-4.[address] [facility] Work Phone: Lipase [Catalytic activity/Vol] 118 U/L 73-393 [facility] Work Phone: [phone] Urea nitrogen/Creatinine [Mass ratio] 14.3 mg/mg 10-20 [facility] Work Phone: [phone] Laboratory - Hematology and Cell countson 12-29-2021 Erythrocyte distribution width (RBC) [Entitic vol] 44.3 fL 35.1-43.9 [facility] Work Phone: [phone] Erythrocyte distribution width (RBC) [Ratio] 14.0 % 11.6-14.6 [facility] Work Phone: [phone] Immature granulocytes/100 WBC (Bld) 0.400 % 0.0-0.9 [facility] Work Phone: [phone] Comment on above: IG% - Immature Granu locytes (promyelocytes, myelocytes and metamyelocytes) > 1% indicates that a LEFT SHIFT is Present. MCH (RBC) [Entitic mass] 27.6 pg 27.0-32.0 [facility] Work Phone: Nucleated RBC/100 WBC (Bld) [Ratio] 0 % 0-5 [facility] Work Phone: MCHC Auto (RBC) [Mass/Vol]on 12-29-2021 MCHC (RBC) [Mass/Vol] 31.8 g/dL 32-36 [facility] Work Phone: Mucus LM Ql (Urine sed)on Mucus Ql (Urine sed) 0 SEEN /hpf [facility] Work Phone: Nitrite Test strip Ql (U)on 12-29-2021 Nitrite Ql (U) Negative Negative [facility] Work Phone: No Panel Informationon 12-29 Estimated Creatinine Clearance Calc 108.61 ml/min [facility] Work Phone: Estimated GFR (MDRD) Amer 117 mL/min >60 [facility] Work Phone: Comment on above: GFR Calc Estimated GFR (MDRD) Non-Af Amer 97 mL/min >60 [facility] Work Phone: Comment on above: Non- GFR Calc Platelets bldon 12-29-2021 Platelets (Bld) [#/Vol] 413 10*3/uL 150-450 [facility] Work Phone: Protein Test strip Ql (U)on 12-29-2021 Protein Ql (U) Negative Negative [facility] Work Phone: Serum or plasma albumin teo urement (mass/volume)on 12-29-2021 Albumin [Mass/Vol] 3.4 g/dL 3.2-5.0 [facility] Work Phone: [phone] Serum or plasma calcium teo urement (mass/volume)on 12-29-2021 Calcium [Mass/Vol] 9.7 mg/dL 8.5-10.1 [facility] Work Phone: Serum or plasma creatinine m easurement (mass/volume)on 12-29-2021 Creatinine [Mass/Vol] 0.77 mg/dL 0.55-1.02 [facility] Work Phone: Comment on above: The validity of the calculated GFR & GFRAA in patients over 70 years has not been determined. Clinical correlation is essential. Serum or plasma urea nitroge n measurement (mass/volume)on 12-29-2021 Urea nitrogen [Mass/Vol] 11 mg/dL 7-18 [facility] Work Phone: Squamous epithelial cells de tection in urine sediment by light microscopyon 12-29-2021 Epithelial cells.squamous LM Ql (Urine sed) 10-25 SEEN /hpf 5-10 [facility] Work Phone: Thin prep Papanicolaou smear with manual screeningon 12-29-2021 Thin prep Papanicolaou smear with manual screening 30 U/L 15-37 [facility] Work Phone: Comment on above: Moderate Hemolysis, Result may be falsely increased. Thin prep Papanicolaou smear with manual screening 8 5-15 [facility] Work Phone: Urine blood detectionon 12-20-2021 RBC Ql (U) Negative Negative [facility] Work Phone: RBC Ql (U) 0 SEEN /hpf 0-5 [facility] Work Phone: Urine clarityon 12-29-2021 Clarity (U) Sl. Cloudy Clear [facility] Work Phone: Urine color determinationon 12-29-2021 Color (U) Yellow Yellow [facility] Work Phone: Urine glucose detectionon Glucose Ql (U) Normal mg/dl Normal [facility] [facility] Work Phone: Urine leukocyte esterase det ection by dipstickon 12-29-2021 Leukocyte esterase Test strip Ql (U) Negative Negative [facility] Work Phone: Urine pHon 12-29-2021 pH (U) 7.0 [pH] 5.0 - 8.0 [facility] Work Phone: Urine sediment bacteria coun t by microscopy (number/high power field)on 12-29-2021 Bacteria LM.HPF (Urine sed) [#/Area] 2 /[HPF] None Seen [facility] Work Phone: [phone] Urine specific gravity measu rementon 12-29-2021 Specific gravity (U) [Rel density] 1.015 1.002-1.030 [facility] Work Phone: [phone] Urobilinogen Auto test strip Ql (U)on 12-29-2021 Urobilinogen Ql (U) Normal mg/dl Normal [facility] Work Phone: Basophil percentageon 2021 Bilirubin [Mass/Vol] 0.30 mg/dL 0.20-1.00 [facility] Work Phone: [phone] Comment on above: For patients on eltr ombopag therapy, use of Dimension [place] TBIL is not recommended. Chloride [Moles/Vol] 104 mmol/L 98-107 [facility] Work Phone: Cholesterol [Mass/Vol] 178 mg/dL <200 [facility] Work Phone: [phone] Comment on above: <200 mg/dL Desirable 200-240 mg/dL Borderline >240 mg/dL High Risk Glucose [Mass/Vol] 98 mg/dL 74-106 [facility] Work Phone: Potassium [Moles/Vol] 3.9 mmol/L 3.5-5.1 [facility] Work Phone: [phone] Protein [Mass/Vol] 7.3 g/dL 6.4-8.2 [facility] Work Phone: Sodium [Moles/Vol] 136 mmol/L 136-145 [facility] Work Phone: [phone] Triglyceride [Mass/Vol] 169 mg/dL <[address] [facility] Work Phone: [phone] Comment on above: The drugs N-Acetylcy steine and Metamizole may falsely depress this assay.Serum Triglycerides Reference Interval Normal <150 mg/dL Borderline high 150 - 199 mg/dL High 200 - 499 mg/dL Very High > or = 500 mg/dL WBC (Bld) [#/Vol] 13.4 10*3/uL 4.4-11.0 [facility] Work Phone: [phone] Blood erythrocytes count (nu mber/volume)on 11-28-2021 RBC (Bld) [#/Vol] 4.47 10*6/uL 4.2-5.4 [facility] Work Phone: [phone] Blood hemoglobin measurement (mass/volume)on 11-28-2021 Hemoglobin (Bld) [Mass/Vol] 12.4 g/dL 12.0-15.0 [facility] Work Phone: [phone] Blood platelet mean volumeon 11-28-2021 Platelet mean volume (Bld) [Entitic vol] 9.6 fL 6.2-12.0 [facility] Work Phone: [phone] Determination of erythrocyte mean corpuscular volume (MCV)on 11-28-2021 MCV (RBC) [Entitic vol] 85.5 fL 81-[address] [facility] Work Phone: [phone] Hematocrit Auto (Bld) [Volum e fraction]on 11-28-2021 Hematocrit (Bld) [Volume fraction] 38.2 % 37-47 [facility] Work Phone: [phone] Laboratory - Chemistry and C hemistry - challengeon 11-28-2021 ALP [Catalytic activity/Vol] 88 U/L 45-117 [facility] Work Phone: [phone] ALT [Catalytic activity/Vol] 21 U/L 13-56 [facility] Work Phone: [phone] CO2 [Moles/Vol] 29.0 mmol/L 21.0-32.0 [facility] Work Phone: [phone] Globulin (S) [Mass/Vol] 4.0 g/dL 2.2-4.[address] [facility] Work Phone: [phone] Urea nitrogen/Creatinine [Mass ratio] 12.9 mg/mg 10-20 [facility] Work Phone: [phone] Laboratory - Hematology and Cell countson 11-28-2021 Erythrocyte distribution width (RBC) [Entitic vol] 45.1 fL 35.1-43.9 [facility] Work Phone: [phone] Erythrocyte distribution width (RBC) [Ratio] 14.4 % 11.6-14.6 [facility] Work Phone: [phone] MCH (RBC) [Entitic mass] 27.7 pg 27.0-32.0 [facility] Work Phone: [phone] MCHC Auto (RBC) [Mass/Vol]on 11-28-2021 MCHC (RBC) [Mass/Vol] 32.5 g/dL 32-36 [facility] Work Phone: [phone] Panel Informationon 11-28 Estimated GFR (MDRD) Amer 131 mL/min >60 [facility] Work Phone: [phone] Comment on above: GFR Calc Estimated GFR (MDRD) Non-Af Amer 108 mL/min >60 [facility] Work Phone: [phone] Comment on above: Non- GFR Calc Vitamin D 25-Hydroxy 67.9 ng/mL [facility] Work Phone: [phone] Comment on above: Vitamin D 25(OH) Sta tus Range Deficiency <20 ng/mL (50nmol/L) Insufficiency 20 - 30 ng/mL (50 - 75 nmol/L) Sufficiency 30 - 100 ng/mL (75 - 250 nmol/L) Toxicity >100 ng/mL (>250 nmol/L) Platelets bldon 11-28-2021 Platelets (Bld) [#/Vol] 404 10*3/uL 150-450 [facility] Work Phone: [phone] Serum or plasma albumin teo urement (mass/volume)on 11-28-2021 Albumin [Mass/Vol] 3.3 g/dL 3.2-5.0 [facility] Work Phone: [phone] Serum or plasma albumin/glob ulin mass ratioon 11-28-2021 Albumin/Globulin [Mass ratio] 0.8 {ratio} 0.9-2.4 [facility] Work Phone: Serum or plasma calcium teo urement (mass/volume)on 11-28-2021 Calcium [Mass/Vol] 8.8 mg/dL 8.5-10.1 [facility] Work Phone: Serum or plasma cholesterol in HDL measurement (mass/volume)on 11-28-2021 Cholesterol in HDL [Mass/Vol] 29 mg/dL >40 [facility] Work Phone: Comment on above: The drugs N-Acetylcy steine and Metamizole may falsely depress this assay. Reference Range HDL <40 mg/dL Low HDL Cholesterol HDL >or= 60 mg/dL High HDL Cholesterol Serum or plasma cholesterol in VLDL measurement (mass/volume)on 11-28-2021 Cholesterol in VLDL [Mass/Vol] 34 mg/dL 5-40 [facility] Work Phone: Serum or plasma creatinine m easurement (mass/volume)on 11-28-2021 Creatinine [Mass/Vol] 0.70 mg/dL 0.55-1.02 [facility] Work Phone: Comment on above: The validity of the calculated GFR & GFRAA in patients over 70 years has not been determined. Clinical correlation is essential. Serum or plasma low density lipoprotein (LDL) cholesterol measurement (mass/volume)on 11-28-2021 Cholesterol in LDL [Mass/Vol] 115 mg/dL 0-130 [facility] Work Phone: Serum or plasma urea nitroge n measurement (mass/volume)on 11-28-2021 Urea nitrogen [Mass/Vol] 9 mg/dL 7-18 [facility] Work Phone: [phone] Thin prep Papanicolaou smear with manual screeningon 11-28-2021 Thin prep Papanicolaou smear with manual screening 13 U/L 15-37 [facility] Work Phone: [phone] Thin prep Papanicolaou smear with manual screening 3 5-15 [facility] Work Phone: [phone] Whole blood hemoglobin A1c/t otal hemoglobin ratio (mass fraction)on 11-28-2021 HbA1c (Bld) [Mass fraction] 5.4 % 3.8-5.6 [facility] Work Phone: Comment on above: Normal < 5.7 % Predi abetic 5.7 - 6.4 % Diabetic >or= 6.5 % Please note range changes. Absolute lymphocyte counton 08-09-2021 Lymphocytes Auto (Unsp spec) [#/Vol] 3.19 10*3/uL 0.83-4.51 [facility] Work Phone: Basophil percentageon 2021 Basophils/100 WBC (Bld) 0.7 % 0-[address] [facility] Work Phone: Eosinophils/100 WBC (Bld) 3.3 % 0-5 [facility] Work Phone: Neutrophils (Bld) [#/Vol] 8.5 10*3/uL 2.0-7.7 [facility] Work Phone: Neutrophils/100 WBC (Bld) 65.7 % 47-70 [facility] Work Phone: WBC (Bld) [#/Vol] 13.0 10*3/uL 4.4-11.0 [facility] Work Phone: Blood erythrocytes count (nu mber/volume)on 08-09-2021 RBC (Bld) [#/Vol] 4.90 10*6/uL 4.2-5.4 [facility] Work Phone: Blood hemoglobin measurement (mass/volume)on 08-09-2021 Hemoglobin (Bld) [Mass/Vol] 13.2 g/dL 12.0-15.0 [facility] Work Phone: Blood lymphocytes/100 leukoc yteson 08-09-2021 Lymphocytes/100 WBC (Bld) 24.6 % 19-41 [facility] Work Phone: Blood monocytes/100 leukocyt eson 08-09-2021 Monocytes/100 WBC (Bld) 5.4 % 0-[address] [facility] Work Phone: Blood platelet mean volumeon 08-09-2021 Platelet mean volume (Bld) [Entitic vol] 9.5 fL 6.2-12.0 [facility] Work Phone: [phone] Determination of erythrocyte mean corpuscular volume (MCV)on 08-09-2021 MCV (RBC) [Entitic vol] 83.7 fL 81-[address] [facility] Work Phone: [phone] Hematocrit Auto (Bld) [Volum e fraction]on 08-09-2021 Hematocrit (Bld) [Volume fraction] 41.0 % 37-47 [facility] Work Phone: [phone] Iron measurement (mass/mass) on 08-09-2021 Iron (Unsp spec) [Mass/Mass] 77 ug/dL 50-170 [facility] Work Phone: [phone] Laboratory - Hematology and Cell countson 08-09-2021 Erythrocyte distribution width (RBC) [Entitic vol] 46.2 fL 35.1-43.9 [facility] Work Phone: [phone] Erythrocyte distribution width (RBC) [Ratio] 15.0 % 11.6-14.6 [facility] Work Phone: [phone] Immature granulocytes/100 WBC (Bld) 0.300 % 0.0-0.9 [facility] Work Phone: [phone] Comment on above: IG% - Immature Granu locytes (promyelocytes, myelocytes and metamyelocytes) > 1% indicates that a LEFT SHIFT is Present. MCH (RBC) [Entitic mass] 26.9 pg 27.0-32.0 [facility] Work Phone: [phone] Nucleated RBC/100 WBC (Bld) [Ratio] 0 % 0-5 [facility] Work Phone: [phone] MCHC Auto (RBC) [Mass/Vol]on 08-09-2021 MCHC (RBC) [Mass/Vol] 32.2 g/dL 32-36 [facility] Work Phone: [phone] No Panel Informationon 08-09 Total Iron Binding Capacity 378 ug/dL 250-450 [facility] Work Phone: [phone] Platelets bldon 08-09-2021 Platelets (Bld) [#/Vol] 412 10*3/uL 150-450 [facility] Work Phone: Serum or plasma iron saturat ion measurement (mass fraction)on 08-09-2021 Iron saturation [Mass fraction] 20.4 % 15.0-55.0 [facility] Work Phone: XR Chest PA and Lateralon IMPRESSION: Within normal limits. No acute radiographic abnormality. Project Engineering Manager: PSCB Transcribe Date/Time: Oct 24 2020 7:12P Dictated by : MARTI CRUZ MD This examination was interpreted and the report reviewed and electronically signed by: MARTI CRUZ MD on Oct 24 2020 7:14PM [facility] DIVISION OF RADIOLOGY * * *Final Report* * * DATE OF EXAM: Oct 24 2020 6:44PM WOX 5291 - XR CHEST 2V FRONTAL/LAT / PROCEDURE REASON: SOB (shortness of breath) * * * * Physician Interpretation * * * * EXAMINATION: CHEST RADIOGRAPH (2 VIEW FRONTAL & LATERAL), 10/24/2020 CLINICAL HISTORY: SOB (shortness of breath) MQ: XC2_6 EXAM DATE/TIME: 10/24/2020 6:44 PM COMPARISON: No relevant prior studies available. RESULT: Lines, tubes, and devices: None. Lungs and pleura: The lungs are clear. No pleural effusion. No pneumothorax. Cardiomediastinal silhouette: Normal cardiomediastinal silhouette. Bones and soft tissues: Unremarkable. DIVISION OF RADIOLOGY Provider, [facility] Marcial [facility] - 10/24/2020 * * *Final Report* * * DATE OF EXAM: Oct 24 2020 6:44PM WOX 5291 - XR CHEST 2V FRONTAL/LAT / PROCEDURE REASON: SOB (shortness of breath) * * * * Physician Interpretation * * * * EXAMINATION: CHEST RADIOGRAPH (2 VIEW FRONTAL & LATERAL), 10/24/2020 CLINICAL HISTORY: SOB (shortness of breath) MQ: XC2_6 EXAM DATE/TIME: 10/24/2020 6:44 PM COMPARISON: No relevant prior studies available. RESULT: Lines, tubes, and devices: None. Lungs and pleura: The lungs are clear. No pleural effusion. No pneumothorax. Cardiomediastinal silhouette: Normal cardiomediastinal silhouette. Bones and soft tissues: Unremarkable. IMPRESSION IMPRESSION: Within normal limits. No acute radiographic abnormality. Project Engineering Manager: RANGEL Transcribe Date/Time: Oct 24 2020 7:12P Dictated by : MARTI CRUZ MD This examination was interpreted and the report reviewed and electronically signed by: MARTI CRUZ MD on Oct 24 2020 7:14PM EST [facility] Radiology Study observation (narrative) Tiara ko [facility] XR Chest PA and LateralOrder ed By: Ccf Provider on 10-24-[address] [facility] Vital Signs Date Time Vital Sign Value Performing Clinician Facility 10-06-2024 13:38-0400 Body height 170.18 cm Blanka Cerna NP-C Work Phone: [phone] [place] [address] 10-06-2024 13:38-0400 Body mass index (BMI) [Ratio] 47 kg/m2 Blanka Cerna COAGULATING DRYING SUPERVISOR-C Work Phone: [phone] [place] [address] 10-06-2024 13:38-0400 Body temperature 98.2 [degF] Blanka Cerna COAGULATING DRYING SUPERVISOR-C Work Phone: [phone] [place] [address] 10-06-2024 13:38-0400 Body weight 136.07 kg Blanka Cerna COAGULATING DRYING SUPERVISOR-C Work Phone: [phone] [place] [address] 10-06-2024 13:38-0400 Diastolic blood pressure 80 mm[Hg] Blanka Cerna COAGULATING DRYING SUPERVISOR-C Work Phone: [phone] [place] [address] 10-06-2024 13:38-0400 Heart rate 93 /min Blanka Cerna COAGULATING DRYING SUPERVISOR-C Work Phone: [phone] [place] [address] 10-06-2024 13:38-0400 Respiratory rate 18 /min Blanka Cerna COAGULATING DRYING SUPERVISOR-C Work Phone: [phone] [place] [address] 10-06-2024 13:38-0400 SaO2% (BldA) [Mass fraction] 98 % Blanka Cerna COAGULATING DRYING SUPERVISOR-C Work Phone: [phone] [place] [address] 10-06-2024 13:38-0400 Systolic blood pressure 142 mm[Hg] Blanka Cerna COAGULATING DRYING SUPERVISOR-C Work Phone: [facility] 08-18-2024 16:44-0400 Body mass index (BMI) [Ratio] 44.46 kg/m2 Dalia Seraouere DRIVER [employer] Work Phone: [facility] 08-18-2024 16:44-0400 Body temperature 98.71 [degF] Dalia Seraouere DRIVER [employer] Work Phone: [facility] 08-18-2024 16:44-0400 Body weight 130 kg Dalia Larouere DRIVER [employer] Work Phone: [facility] 08-18-2024 16:44-0400 Diastolic blood pressure 78 mm[Hg] Dalia Larouere DRIVER [employer] Work Phone: [facility] 08-18-2024 16:44-0400 Heart rate 92 /min Dalia Seraouere DRIVER [employer] Work Phone: [facility] 08-18-2024 16:44-0400 Respiratory rate 16 /min Dalia Seraouere DRIVER [employer] Work Phone: [facility] 08-18-2024 16:44-0400 SaO2% (BldA) [Mass fraction] 97 % Dalia Seraouere [employer]IVER [employer] Work Phone: [facility] 08-18-2024 16:44-0400 Systolic blood pressure 120 mm[Hg] Dalia Larouere DRIVER [employer] Work Phone: [facility] 08-11-2024 21:03-0400 Heart rate 88 /min Blanka Cerna COAGULATING DRYING SUPERVISOR-C Work Phone: [facility] 08-11-2024 21:03-0400 Respiratory rate 18 /min Balnka Cerna COAGULATING DRYING SUPERVISOR-C Work Phone: [facility] 08-11-2024 17:52-0400 Body height 170.18 cm Blanka Cerna COAGULATING DRYING SUPERVISOR-C Work Phone: [facility] 08-11-2024 17:52-0400 Body mass index (BMI) [Ratio] 44.6 kg/m2 Blanka Nehemiah COAGULATING DRYING SUPERVISOR-C Work Phone: [facility] 08-11-2024 17:52-0400 Body temperature 98.5 [degF] Blanka Nehemiah COAGULATING DRYING SUPERVISOR-C Work Phone: [facility] 08-11-2024 17:52-0400 Body weight 129.27 kg Blanka Nehemiah COAGULATING DRYING SUPERVISOR-C Work Phone: [facility] 08-11-2024 17:52-0400 Diastolic blood pressure 84 mm[Hg] Blanka Nehemiah COAGULATING DRYING SUPERVISOR-C Work Phone: [facility] 08-11-2024 17:52-0400 SaO2% (BldA) [Mass fraction] 95 % Blanka Nehemiah COAGULATING DRYING SUPERVISOR-C Work Phone: [facility] 08-11-2024 17:52-0400 Systolic blood pressure 157 mm[Hg] Blankaroque Cerna COAGULATING DRYING SUPERVISOR-C Work Phone: [facility] 08-09-2024 19:32-0400 Body mass index (BMI) [Ratio] 43.84 kg/m2 Jake Bernabe [employer]IVER [employer] Work Phone: [facility] 08-09-2024 19:32-0400 Body temperature 97.81 [degF] Jake Bernabe DRIVER [employer] Work Phone: [facility] 08-09-2024 19:32-0400 Body weight 128.2 kg Jake Bernabe DRIVER [employer] Work Phone: [facility] 08-09-2024 19:32-0400 Diastolic blood pressure 78 mm[Hg] Jake Bernabe DRIVER [employer] Work Phone: [facility] 08-09-2024 19:32-0400 Heart rate 88 /min Jake Bernabe [employer]IVER [employer] Work Phone: [facility] 08-09-2024 19:32-0400 Respiratory rate 18 /min Jake Bernabe [employer]IVER [employer] Work Phone: [facility] 08-09-2024 19:32-0400 SaO2% (BldA) [Mass fraction] 97 % Jake Bernabe [employer]IVER [employer] Work Phone: [facility] 08-09-2024 19:32-0400 Systolic blood pressure 118 mm[Hg] Jake Kimbroughshahzad DRIVER [employer] Work Phone: [facility] 06-30-2024 15:38-0400 Body height 170.18 cm Blanka Cerna COAGULATING DRYING SUPERVISOR-C Work Phone: [phone] [place] [address] 06-30-2024 15:38-0400 Body mass index (BMI) [Ratio] 44.3 kg/m2 Blanka Cerna COAGULATING DRYING SUPERVISOR-C Work Phone: [phone] [place] [address] 06-30-2024 15:38-0400 Body temperature 97.6 [degF] Blanka Ceran COAGULATING DRYING SUPERVISOR-C Work Phone: [phone] [place] [address] 06-30-2024 15:38-0400 Body weight 128.36 kg Blanka Cerna COAGULATING DRYING SUPERVISOR-C Work Phone: [phone] [place] [address] 06-30-2024 15:38-0400 Diastolic blood pressure 80 mm[Hg] Blanka Cerna COAGULATING DRYING SUPERVISOR-C Work Phone: [phone] [place] [address] 06-30-2024 15:38-0400 Heart rate 105 /min Blanka Cerna COAGULATING DRYING SUPERVISOR-C Work Phone: [phone] [place] [address] 06-30-2024 15:38-0400 Respiratory rate 18 /min Blankaroque Cerna COAGULATING DRYING SUPERVISOR-C Work Phone: [phone] [place] [address] 06-30-2024 15:38-0400 SaO2% (BldA) [Mass fraction] 98 % Blanka Cerna COAGULATING DRYING SUPERVISOR-C Work Phone: [phone] [place] [address] 06-30-2024 15:38-0400 Systolic blood pressure 142 mm[Hg] Blanka Cerna COAGULATING DRYING SUPERVISOR-C Work Phone: [phone] [place] [address] 03-29-2024 13:18-0500 Body mass index (BMI) [Ratio] 42.85 kg/m2 Beto GOODSONC Work Phone: [facility] 03-29-2024 13:18-0500 Body temperature 98.29 [degF] Beto Athy PA-C Work Phone: [facility] 03-29-2024 13:18-0500 Body weight 125.3 kg Beto Athy PA-C Work Phone: [facility] 03-29-2024 13:18-0500 Diastolic blood pressure 68 mm[Hg] Beto Athy PA-C Work Phone: [facility] 03-29-2024 13:18-0500 Heart rate 88 /min Beto Athy PA-C Work Phone: [facility] 03-29-2024 13:18-0500 Respiratory rate 16 /min Beto Athy PA-C Work Phone: [facility] 03-29-2024 13:18-0500 SaO2% (BldA) [Mass fraction] 98 % Beto Athy PA-C Work Phone: [facility] 03-29-2024 13:18-0500 Systolic blood pressure 118 mm[Hg] Beto Athy PA-C Work Phone: [facility] 02-06-2024 13:08-0400 Body mass index (BMI) [Ratio] 40.49 kg/m2 Arden Moomaw [employer]IVER [employer] Work Phone: [facility] 02-06-2024 13:08-0400 Body temperature 98.1 [degF] Arden Moomaw DRIVER [employer] Work Phone: [facility] 02-06-2024 13:08-0400 Body weight 118.4 kg Arden Moomaw DRIVER [employer] Work Phone: [facility] 02-06-2024 13:08-0400 Diastolic blood pressure 82 mm[Hg] Arden Moomaw DRIVER [employer] Work Phone: [facility] 02-06-2024 13:08-0400 Heart rate 97 /min Arden Moomaw DRIVER [employer] Work Phone: [facility] 02-06-2024 13:08-0400 Respiratory rate 16 /min Arden Moomaw DRIVER [employer] Work Phone: [facility] 02-06-2024 13:08-0400 SaO2% (BldA) [Mass fraction] 98 % Arden Moomaw DRIVER [employer] Work Phone: [facility] 02-06-2024 13:08-0400 Systolic blood pressure 152 mm[Hg] Arden Moomaw DRIVER [employer] Work Phone: [facility] 08-29-2023 11:46-0400 Body mass index (BMI) [Ratio] 44.22 kg/m2 Jenny Martino DRIVER [employer] Work Phone: [facility] 08-29-2023 11:46-0400 Body temperature 98.01 [degF] Jenny Martino DRIVER [employer] Work Phone: [facility] 08-29-2023 11:46-0400 Body weight 129.3 kg Jenny Martino DRIVER [employer] Work Phone: [facility] 08-29-2023 11:46-0400 Diastolic blood pressure 76 mm[Hg] Jenny Martino DRIVER [employer] Work Phone: [facility] 08-29-2023 11:46-0400 Heart rate 85 /min Jenny Martino DRIVER [employer] Work Phone: [facility] 08-29-2023 11:46-0400 Respiratory rate 21 /min Jenny Martino DRIVER [employer] Work Phone: [facility] 08-29-2023 11:46-0400 SaO2% (BldA) [Mass fraction] 98 % Jenny Martino DRIVER [employer] Work Phone: [facility] 08-29-2023 11:46-0400 Systolic blood pressure 124 mm[Hg] Jenny Martino DRIVER [employer] Work Phone: [facility] 07-24-2023 23:45-0400 Body temperature 97.9 [degF] [facility] 07-24-2023 23:45-0400 Diastolic blood pressure 88 mm[Hg] [facility] 07-24-2023 23:45-0400 Heart rate 104 /min [facility] 07-24-2023 23:45-0400 Respiratory rate 16 /min [facility] 07-24-2023 23:45-0400 SaO2% (BldA) [Mass fraction] 98 % [facility] 07-24-2023 23:45-0400 Systolic blood pressure 141 mm[Hg] [facility] 07-24-2023 22:26-0400 Body height 170.18 cm [facility] 07-24-2023 22:26-0400 Body mass index (BMI) [Ratio] 44.1 kg/m2 [facility] 07-24-2023 22:26-0400 Body weight 127.91 kg [facility] 06-28-2023 14:17-0500 Body temperature 98.2 [degF] Carla Praisler-Wood DRIVER [employer] Work Phone: [facility] 06-28-2023 14:17-0500 Body weight 130 kg Carla Praisler-Wood DRIVER [employer] Work Phone: [facility] 06-28-2023 14:17-0500 Diastolic blood pressure 66 mm[Hg] Carla Praisler-Wood DRIVER [employer] Work Phone: [facility] 06-28-2023 14:17-0500 Heart rate 94 /min Carla Praisler-Wood DRIVER [employer] Work Phone: [facility] 06-28-2023 14:17-0500 Respiratory rate 16 /min Carla Praisler-Wood DRIVER [employer] Work Phone: [facility] 06-28-2023 14:17-0500 SaO2% (BldA) [Mass fraction] 99 % Carla Praisler-Wood DRIVER [employer] Work Phone: [facility] 06-28-2023 14:17-0500 Systolic blood pressure 112 mm[Hg] Carla Praisler-Wood DRIVER [employer] Work Phone: [facility] 02-19-2022 08:45-0400 Body height 170.18 cm COAGULATING [employer]YING SUPERVISOR-C Raya Serrano Work Phone: [facility] 02-19-2022 08:40-0400 Body mass index (BMI) [Ratio] 44.8 kg/m2 COAGULATING [employer]YING SUPERVISOR-C Raya Serrano Work Phone: [facility] 02-19-2022 08:40-0400 Body weight 129.84 kg COAGULATING DRYING SUPERVISOR-C Raya Serrano Work Phone: [facility] 02-19-2022 08:40-0400 Diastolic blood pressure 78 mm[Hg] COAGULATING DRYING SUPERVISOR-C Raya Serrano Work Phone: [facility] 02-19-2022 08:40-0400 Systolic blood pressure 134 mm[Hg] COAGULATING DRYING SUPERVISOR-C Raya Serrano Work Phone: [facility] 12-29-2021 17:21-0400 Diastolic blood pressure 72 mm[Hg] [facility] Work Phone: 12-29-2021 17:21-0400 Respiratory rate 16 /min [facility] Work Phone: 12-29-2021 17:21-0400 SaO2% (BldA) [Mass fraction] 98 % [facility] [facility] Work Phone: 12-29-2021 17:21-0400 Systolic blood pressure 168 mm[Hg] [facility] Work Phone: 12-29-2021 14:05-0400 Body height 170.18 cm [facility] Work Phone: 12-29-2021 14:05-0400 Body mass index (BMI) [Ratio] 43.8 kg/m2 [facility] Work Phone: 12-29-2021 14:05-0400 Body temperature 98 [degF] [facility] Work Phone: 12-29-2021 14:05-0400 Body weight 127 kg [facility] Work Phone: 12-29-2021 14:05-0400 Heart rate 80 /min [facility] Work Phone: 11-30-2021 18:30-0400 Body temperature 98.7 [degF] [facility] Work Phone: 11-30-2021 18:30-0400 Diastolic blood pressure 78 mm[Hg] [facility] Work Phone: 11-30-2021 18:30-0400 Heart rate 66 /min [facility] Work Phone: 11-30-2021 18:30-0400 Respiratory rate 14 /min [facility] Work Phone: 11-30-2021 18:30-0400 SaO2% (BldA) [Mass fraction] 100 % [facility] Work Phone: 11-30-2021 18:30-0400 Systolic blood pressure 134 mm[Hg] [facility] Work Phone: 11-30-2021 17:42-0400 Body height 170.18 cm [facility] Work Phone: 11-30-2021 17:42-0400 Body mass index (BMI) [Ratio] 46.5 kg/m2 [facility] Work Phone: 11-30-2021 17:42-0400 Body weight 134.6 kg [facility] Work Phone: 11-08-2021 11:09-0400 Body height 170.2 cm Trey Sumner MD Work Phone: [facility] 11-08-2021 11:09-0400 Body mass index (BMI) [Ratio] 44.64 kg/m2 Trey Sumner MD Work Phone: [facility] 11-08-2021 11:09-0400 Body weight 129.28 kg Trey Sumner MD Work Phone: [facility] Encounters Encounter Date Encounter Type Care Provider Facility Start: 12-16-2024 End: 12-16-2024 Patient encounter procedure Keren PRABHAKAR -[facility] Work Phone: Start: 12-16-2024 End: 12-16-2024 ambulatory Lenore Meier Facility:[facility] Start: 10-06-2024 End: 10-06-[address] Lenore Meier MD -[facility] Work Phone: Start: 10-06-2024 End: 10-06-2024 ambulatory Blanka Cerna COAGULATING DRYING SUPERVISOR-C Work Phone: [facility] Work Phone: Start: 08-18-2024 End: 08-18-2024 Patient encounter procedure Dalia Gonzales APRN.ASBESTOS REMOVER Work Phone: [facility] Comment on above: Acute bronchitis, un specified organism (Primary Dx) Start: 08-18-2024 End: 08-18-2024 ambulatory [facility] Facility:[facility] Start: 08-11-2024 End: 08-11-2024 Emergency department patient visit Blanka Cerna COAGULATING DRYING SUPERVISOR-C Work Phone: -Emergency Department Work Phone: Start: 08-09-2024 End: 08-09-2024 Office outpatient visit 25 minutes Jake Bernabe DRIVER MEDIC.ASBESTOS REMOVER Work Phone: [facility] Comment on above: URI with cough and c ongestion (Primary Dx) Start: 08-09-2024 End: 08-09-2024 ambulatory [facility] Facility:[facility] Start: 07-21-2024 End: 07-21-2024 ambulatory [facility] COAGULATING DRYING SUPERVISOR-C Work Phone: [facility] Work Phone: Start: 07-21-2024 End: 07-21-2024 Patient encounter procedure Diane Vasquez COAGULATING DRYING SUPERVISOR-C -[facility] Work Phone: Start: 07-21-2024 End: 07-21-2024 [facility] Start: 06-30-2024 End: 06-30-[address] Lenore Meier MD -[facility] Work Phone: Start: 06-30-2024 End: 06-30-2024 ambulatory Blanka Cerna COAGULATING DRYING SUPERVISOR-C Work Phone: [facility] Work Phone: Start: 06-30-2024 End: 06-30-2024 ambulatory [facility] Facility:[facility] Start: 06-14-2024 Encounter for other preprocedural examination Kaleb Tono [facility] Start: 05-07-2024 End: 05-07-2024 Patient encounter procedure Keren PRABHAKAR -[facility] Work Phone: Start: 05-07-2024 End: 05-07-2024 ambulatory [facility] Facility:[facility] Start: 05-06-2024 End: 05-06-2024 Patient encounter procedure Kathy TYLERC -[facility] Start: 05-06-2024 End: 05-06-2024 ambulatory [facility] Facility:[facility] Start: 04-12-2024 End: 04-12-2024 Patient encounter procedure Keren PRABHAKAR -Nuclear Medicine, [facility] Work Phone: Start: 04-12-2024 End: 04-12-2024 ambulatory [facility] Facility:[facility] Start: 03-29-2024 End: 03-29-2024 ambulatory [facility] Facility:[facility] Start: 03-29-2024 End: 03-29-2024 Patient encounter procedure Beto Dobson PABret Work Phone: [facility] Comment on above: Dental infection (Pr imary Dx) Start: 03-22-2024 End: 03-22-2024 Patient encounter procedure Agapito Mckeon PA [facility] Work Phone: Start: 03-22-2024 End: 03-22-2024 ambulatory Blanka Cerna [facility] Facility:[facility] Start: 03-10-2024 End: 03-10-2024 ambulatory Blanka [facility] Facility:[facility] Start: 03-03-2024 ambulatory Diane Vasquez COAGULATING DRYING SUPERVISOR Facil ity:[facility] Start: 03-02-2024 ambulatory Blanka Castillol in [facility] Facility:[facility] Start: 03-02-2024 Encounter for gynecological examination (general) (routine) with abnormal findings Diane Vasquez NP [facility] Start: 03-02-2024 End: 03-02-2024 [facility] Start: 03-02-2024 End: 03-02-2024 [facility] Start: 03-02-2024 End: 03-02-2024 [facility] Start: 02-11-2024 End: 02-11-2024 [facility] Start: 02-06-2024 End: 02-06-2024 ambulatory [facility] Facility:[facility] Start: 02-06-2024 End: 02-06-2024 Patient encounter procedure Arden Hanna JORDEN.ASBESTOS REMOVER Work Phone: [facility] Comment on above: Elevated blood press ure reading without diagnosis of hypertension (Primary Dx) Start: 02-04-2024 ambulatory Blanka Castillol in [facility] Facility:[facility] Start: 02-03-2024 End: 02-04-2024 [facility] Start: 01-28-2024 End: 01-28-2024 ambulatory Blanka [facility] Facility:[facility] Start: 01-14-2024 End: 01-14-2024 ambulatory Blanka [facility] Facility:[facility] Start: 01-14-2024 End: 01-14-2024 [facility] Start: 01-06-2024 ambulatory Blanka Diamond in [facility] Facility:[facility] Start: 12-29-2023 End: 12-29-2023 Emergency department patient visit Blanka Cerna [facility] Facility:[facility] Start: 12-22-2023 End: 12-22-2023 Emergency department patient visit Blanka Cerna [facility] Facility:[facility] Start: 12-18-2023 End: 12-18-2023 Emergency department patient visit PHILLIP BOYKIN [facility] Start: 08-29-2023 End: 08-29-2023 ambulatory GAGE LOGAN Facility:[facility] Start: 08-29-2023 End: 08-29-2023 Patient encounter procedure Jenny Martino APRN.ASBESTOS REMOVER Work Phone: [facility] Comment on above: Toothache (Primary D x) Start: 07-24-2023 End: 07-24-2023 Emergency department patient visit [facility]-Emergency Department Work Phone: Start: 06-28-2023 End: 06-28-2023 Patient encounter procedure Carla Way APRN.ASBESTOS REMOVER Work Phone: [facility] Comment on above: Urinary frequency (P rimary Dx); Vaginal discharge Start: 05-30-2022 End: 05-30-2022 ambulatory COAGULATING DRYING SUPERVISOR-C Raya Serrano Work Phone: [facility] Work Phone: Start: 05-30-2022 End: 05-30-2022 Patient encounter procedure COAGULATING DRYING SUPERVISOR-C Raya Serrano Work Phone: [facility]-Laboratory Start: 02-19-2022 End: 02-19-2022 Patient encounter procedure COAGULATING DRYING SUPERVISOR-C Raya Serrano Work Phone: [facility] Start: 12-29-2021 End: 12-29-2021 Emergency department patient visit [facility]-Emergency Department Start: 12-21-2021 ambulatory MARGI SUMNER Facility:[facility] Start: 12-12-2021 End: 12-12-2021 ambulatory [facility] Work Phone: Start: 12-12-2021 End: 12-12-2021 Patient encounter procedure [facility]Sleep Lab Start: 11-30-2021 End: 11-30-2021 [facility] Start: 11-28-2021 End: 11-28-2021 Patient encounter procedure [facility] Start: 11-12-2021 [facility] Start: 11-09-2021 End: 11-09-2021 Office consultation new/estab patient 60 min Trey Sumner MD Work Phone: [facility] Comment on above: Hypersomnia (Primary Dx); Morbid obesity with BMI of 40.0-44.9, adult Start: 11-09-2021 ambulatory UJ TREY SUMNER Facility:[facility] Start: 10-31-2021 ambulatory U TREYChuy SUMNER Facility:[facility] Start: 08-09-2021 End: 08-09-2021 Patient encounter procedure [facility] Start: 08-07-2021 End: 08-07-2021 Patient encounter procedure [facility] Start: 10-24-2020 End: 10-24-2020 Subsequent hospital visit by physician Xr [facility] Work Phone: Radiology Comment on above: SOB (shortness of br eath) [R06.02] Procedures Date Procedure Procedure Detail Performing Clinician Start: 08-11-2024 X-ray of chest, PA a nd lateral views Blanka TYLERC Work Phone: Start: 08-11-2024 SARS-CoV-2, Influenz a & RSV (PCR) Blanka Cerna NP-C Work Phone: Start: 07-21-2024 Pelvic echography Sherri Cerna COAGULATING DRYING SUPERVISOR-C Work Phone: Start: 06-30-2024 Total iron binding capacity measurement Blanka Cerna NP-C Work Phone: Start: 04-12-2024 Radionuclide gastric emptying study Blanka Cerna COAGULATING DRYING SUPERVISOR-C Work Phone: Start: 07-24-2023 Plain chest X-ray Start: 06-28-2023 Urnls dip stick/tabl et rgnt auto w/o microscopy Paloma Veras DRIVER MEDIC.ASBESTOS REMOVER Work Phone: Start: 10-24-2020 Radiologic exam ches t 2 views Devin Damon DRIVER MEDIC.ASBESTOS REMOVER Work Phone: Plan of Treatment Date Care Activity Detail Author Start: 06-30-2024 Patient referral [facility] Work Phone: Start: 12-21-2023 Covid-19 Vaccine () Covid-19 Vaccine () [facility] Start: 12-21-2023 Influenza vaccination [facility] Start: 07-24-2023 [facility] Start: 04-21-2023 Behavioral Health Screening Behavioral Health Screening [facility] Start: 04-21-2023 Depression Assessment Depression Ass essment [facility] Start: 12-20-2022 Covid-19 Vaccine ( season) Covid-19 Vaccine () [facility] Start: 12-20-2022 Influenza vaccination Influenza Vacc ine (#1) [facility] Start: 12-20-2021 Influenza vaccination INFLUENZA VACC INE (#1) [facility] Start: 12-12-2021 President And Ceo stdy unatnd w/mi n hrt rate/o2 sat/resp anal CURATOR OF EDUCATION STDY UNATND W/ANAL [facility] Work Phone: Start: 10-23-2020 COVID-19 VACCINE (2 - Booster for Daniel series) COVID-19 VACCINE (2 - Booster for Daniel series) [facility] Start: 07-02-2019 Urine microalbumin profile DTaP,Tdap,Td Vaccine (7 - Td or Tdap) [facility] Start: 2017 Screening for malign ant neoplasm of cervix [facility] Start: 2015 Pneumococcal vaccination Pneum ococcal Vaccine (1 of 2 - PCV) [facility] Start: 2015 Third diphtheria, te tanus and acellular pertussis (DTaP) vaccination TDAP (ADULT) [facility] Start: 2014 Annual PCP Team Borderer nely Disease Visit Annual PCP Team Chronic Disease Visit [facility] Start: 2014 Anxiety Screening Anxiety Screening [facility] Start: 2014 Depression Screening Depression Scre ening [facility] Start: 2014 Hepatitis C screening Hepatitis C Sc reening [facility] Start: 2014 Tetanus vaccination TETANUS [facility] Start: 2012 Screening for Chlamy gloria trachomatis CHLAMYDIA SCREEN [facility] Start: 2011 HIV screening HIV SCREENING DISCUSSION [facility] Start: 2007 Vaccination for radha n papillomavirus HPV VACCINE ADOL (1 - 2-dose series) [facility] Start: 2002 Pneumococcal vaccination Pneum ococcal Vaccine (1 of 2 - PCV) [facility] Start: 2002 PNEUMOCOCCAL VACCINE SERIES (1 - PCV) PNEUMOCOCCAL VACCINE SERIES (1 - PCV) [facility] Start: 1996 GONORRHEA SCREEN GONORRHEA SCREEN [facility] Start: 1996 Hepatitis C antibody , confirmatory test HEPATITIS C VIRUS SCREENING [facility] Start: 1996 Potassium [Moles/vol ume] in Serum or Plasma POTASSIUM [facility] Start: 1996 Thyroid stimulating hormone measurement TSH [facility] Bacteria identified in Urine by Culture URINE CULTURE Microbiology Routine Urinary frequency 06/28/2023 3:14 PM EST [facility] Work Phone: BACTERIAL VAGINOSIS NAAT BACTERI AL VAGINOSIS NAAT Lab Routine Vaginal discharge Ordered: 06/28/2023 [facility] Work Phone: Comment on above: Ordered: 06/28/2023 RADU/TRICHOMONAS NAAT RADU /TRICHOMONAS NAAT Lab Routine Vaginal discharge Ordered: 06/28/2023 [facility] Work Phone: Comment on above: Ordered: 06/28/2023 CBC W Auto Different ial panel - Blood [facility] Chlamydia trachomatis+Neisseria gonorrhoeae DNA [Presence] in Unspecified specimen by MAGDA with probe detection GONORRHEA/CHLAMYDIA NAAT Lab Routine Vaginal discharge Ordered: 06/28/2023 [facility] Work Phone: Comment on above: Ordered: 06/28/2023 Clostridioides diffi cile DNA [Presence] in Unspecified specimen by MAGDA with probe detection [facility] Comprehensive metabo lic 2000 panel - Serum or Plasma [facility] Giardia lamblia Ag [Presence] in Stool by Immunoassay [facility] Nucleic acid assay [facility] Ova OR parasites identification [facility] Patient Education [facility] Work Phone: Patient referral [facility] Work Phone: Protein measurement [facility] Immunizations Immunization Date Immunization Notes Care Provider [facility] 04-09-2022 influenza virus vaccine, unspecified formulation Carla Praisler-Wood DRIVER MEDIC.ASBESTOS REMOVER Work Phone: [facility] 03-08-2020 Seasonal, quadrivale nt, recombinant, injectable influenza vaccine, preservative free Carla Praisler-Wood DRIVER MEDIC.ASBESTOS REMOVER Work Phone: [facility] 03-08-2020 influenza virus vaccine, unspecified formulation Trey Sumner MD Work Phone: [facility] 07-01-2009 tetanus toxoid, redu luis manuel diphtheria toxoid, and acellular pertussis vaccine, adsorbed Carla Praisler-Wood DRIVER MEDIC.ASBESTOS REMOVER Work Phone: [facility] 12-07-2001 diphtheria, tetanus toxoids and acellular pertussis vaccine, unspecified formulation Carla Praisler-Wood DRIVER MEDIC.ASBESTOS REMOVER Work Phone: [facility] 08-14-2001 measles, mumps and rubella virus vaccine Carla Praisler-Wood DRIVER MEDIC.ASBESTOS REMOVER Work Phone: [facility] 08-14-2001 poliovirus vaccine, inactivated Carla Praisler-Wood DRIVER MEDIC.ASBESTOS REMOVER Work Phone: [facility] 10-25-1997 diphtheria, tetanus toxoids and acellular pertussis vaccine, unspecified formulation Carla Praisler-Wood DRIVER MEDIC.ASBESTOS REMOVER Work Phone: [facility] 10-25-1997 haemophilus influenz ae type b vaccine, HbOC conjugate Carla Praisler-Wood DRIVER MEDIC.ASBESTOS REMOVER Work Phone: [facility] 10-25-1997 hepatitis B vaccine, pediatric or pediatric/adolescent dosage Carla Praisler-Wood DRIVER MEDIC.ASBESTOS REMOVER Work Phone: [facility] 10-25-1997 trivalent poliovirus vaccine, live, oral Carla Hobbs-Dewey DRIVER MEDIC.ASBESTOS REMOVER Work Phone: [facility] 10-25-1997 varicella virus vaccine Taylor y Faby-Dewey DRIVER MEDIC.ASBESTOS REMOVER Work Phone: [facility] 06-07-1997 measles, mumps and rubella virus vaccine Carla Reyesisjennifer-Wood DRIVER MEDIC.ASBESTOS REMOVER Work Phone: [facility] 1996 diphtheria, tetanus toxoids and acellular pertussis vaccine, unspecified formulation Carla Praisler-Wood DRIVER MEDIC.ASBESTOS REMOVER Work Phone: [facility] 1996 haemophilus influenz ae type b vaccine, HbOC conjugate Carla Hobbs-Wood DRIVER MEDIC.ASBESTOS REMOVER Work Phone: [facility] 1996 hepatitis B vaccine, pediatric or pediatric/adolescent dosage Carla Hobbs-Wood DRIVER MEDIC.ASBESTOS REMOVER Work Phone: [facility] 1996 diphtheria, tetanus toxoids and acellular pertussis vaccine, unspecified formulation Carla Reyesisler-Wood DRIVER MEDIC.ASBESTOS REMOVER Work Phone: [facility] 1996 haemophilus influenz ae type b vaccine, HbOC conjugate Carla Reyesisjennifer-Wood DRIVER MEDIC.ASBESTOS REMOVER Work Phone: [facility] 1996 hepatitis B vaccine, pediatric or pediatric/adolescent dosage Carla Reyesisler-Wood DRIVER MEDIC.ASBESTOS REMOVER Work Phone: [facility] 1996 poliovirus vaccine, inactivated Carla Hobbs-Wood DRIVER MEDIC.ASBESTOS REMOVER Work Phone: [facility] 1996 diphtheria, tetanus toxoids and acellular pertussis vaccine, unspecified formulation Carla Way APRN.ASBESTOS REMOVER Work Phone: [facility] 1996 haemophilus influenz ae type b vaccine, HbOC conjugate Carla Way DRIVER MEDIC.ASBESTOS REMOVER Work Phone: [facility] 1996 hepatitis B vaccine, pediatric or pediatric/adolescent dosage Carla Way DRIVER MEDIC.ASBESTOS REMOVER Work Phone: [facility] 1996 poliovirus vaccine, inactivated Carla Way DRIVER MEDIC.ASBESTOS REMOVER Work Phone: [facility] 1996 hepatitis B vaccine, pediatric or pediatric/adolescent dosage Carla Way DRIVER MEDIC.ASBESTOS REMOVER Work Phone: [facility] 1996 hepatitis B vaccine, pediatric or pediatric/adolescent dosage Carla Way APRN.ASBESTOS REMOVER Work Phone: [facility] Payers Date Payer Category Payer Unknown [id number] 2023 Self-pay [id number] 2022 Unknown [id number] 2021 Unknown [id number] 2021 Unknown MARCOS MCCORMICK [facility] [id number] 2021-Present [address] [place] [address] [id number] 2016 Medicaid [id number]. [id number] 1996 Unknown [id number] 2.16.840.1.581851.3.579.2.594 1996 Unknown [id number] 2.16.840.1.863257.3.579.2.594 1996 Unknown [id number] 2.16.840.1.122465.3.579.2.594 1996 Unknown [id number] 2.16.840.1.858029.3.579.2.594 1996 Unknown [id number] 2.16.840.1.112743.3.579.2.651 Unknown [id number] 2.840.1.915653.3.579.2.462 Unknown [id number] 2.840.1.697771.3.579.2.462 Unknown [id number] 2.840.1.368506.3.579.2.462 Unknown [id number] 2.840.1.675031.3.579.2.462 Unknown [id number] 2.840.1.567902.3.579.2.462 Unknown [id number] 2.840.1.371679.3.579.2.462 Unknown [id number] 2.840.1.920704.3.579.2.462 Unknown [id number] 2.840.1.638761.3.579.2.462 Unknown [id number] 2.840.1.351704.3.579.2.462 Unknown [id number] 2.840.1.809144.3.579.2.462 Unknown [id number] 2.840.1.275356.3.579.2.462 Unknown [id number] 2.840.1.797880.3.579.2.462 Unknown [id number] 2.840.1.645513.3.579.2.462 Unknown [id number] 2.840.1.792741.3.579.2.462 Unknown [id number] 2.16.840.1.033102.3.579.2.462 Unknown [id number] 2.16.840.1.595403.3.579.2.462 Unknown [id number] 2.16.840.1.407804.3.579.2.462 Unknown [id number] 2.16.840.1.636740.3.579.2.462 Unknown [id number] 2.16.840.1.350000.3.579.2.462 Unknown [id number] 2.16.840.1.396396.3.579.2.462 Unknown [id number] 2.16.840.1.589639.3.579.2.462 Unknown [id number] 2.16.840.1.566729.3.579.2.462 Unknown [id number] 2.16.840.1.712877.3.579.2.462 Unknown [id number] 2.16.840.1.794030.3.579.2.462 Unknown [id number] 2.16.840.1.294410.3.579.2.462 Unknown [id number] 2.16.840.1.080390.3.579.2.462 Unknown [id number] 2.16840.1.069125.3.579.2.462 Social History Date Type Detail Facility Start: 03-19-2021 End: 07-24-2023 Tobacco smoking status AKIS Unknown if ever smoked [facility] Start: 1995 Sex Assigned At Female W [facility] Start: 11-08-2021 End: 08-11-2024 Tobacco smoking status NHIS Smokes tobacco daily [facility] Start: 04-21-2012 History of tobacco use Smoker [facility] Start: 03-29-2020 End: 11-08-2021 Cigarettes smoked current (pack per day) - Reported 1 [facility] Start: 11-08-2021 End: 08-18-2024 Tobacco use and exposure Smokeless tobacco non-user [facility] Start: 11-08-2021 Alcohol intake Lifetime non-d magnus (finding) [facility] Start: 1995 Sex Assigned At Not on file O [facility] Start: 04-21-2012 History of tobacco use Cigarette Smo ker [facility] Start: 06-28-2023 End: 08-18-2024 Alcohol intake Current non-drinker of alcohol (finding) [facility] Start: 03-29-2020 End: 06-28-2023 Tobacco use panel [facility] National Score (1-10 0), lower number is lower risk Not on file [facility] Start: 12-05-2022 Gender identity Identifies as female gender (finding) [facility] Start: 12-05-2022 Sexual orientation Heterosexual (fin ding) [facility] Start: 09-24-2020 End: 10-24-2020 Exposure to SARS-CoV-2 (event) Not sure [facility] Start: 07-10-2024 End: 08-12-2024 Sex Female (finding) [facility] Start: 08-18-2024 Tobacco smoking stat us NHIS Ex-smoker [facility] Mental Status Date Assessment Result Facility 08-11-2024 Cognitive function Level Of Cons ciousness Awake;Alert;Appropriate;Follow s Commands [facility] Work Phone: 07-24-2023 Cognitive function Awake;Alert;A ppropriate;Follow s Commands [facility] Work Phone: 12-29-2021 Cognitive function Level Of Cons ciousness Awake;Alert;Appropriate;Follow s Commands [facility] Work Phone: 11-30-2021 Cognitive function Level Of Cons ciousness Awake;Alert;Appropriate;Follow s Commands [facility] Work Phone: Clinical Notes 10-24-2020 to 10-06-2024 Note Date & Type Note Facility 10-06-2024 Evaluation note Diagnosis Onset Date Resolution Axillary lump acute October 06, 2024 1:29pm Hypersomnolence chronic September 1:29pm Hypertension chronic October 06 025 1:29pm Loose stools acute December 16, 2024 9:31am [facility] Work Phone: 1(934) 943-869604-30-2025 NoteHNO ID: [id number] Author: DALIA GONZALES APRN.ASBESTOS REMOVER Service: ? Author Type: Nurse Practitioner Type: Progress Notes Filed: 08/18/2024 17:02 Note Text: [facility] PATIENT NAME: Gabrielle Cooper DATE OF : 1995 TODAYS' DATE: 08/18/2024 Subjective: Ms. Cooper is a 29 year old female The patient is a 29-year-old female presenting for follow-up of a persistent cough and new onset rash. History of Present Illness: Cough: - Persistent cough x2 weeks. - Initial symptoms included cough, congestion, and wheezing. - Wheezing has resolved; cough is now productive but feels like it stays in there. - Denies dyspnea. - Previously treated with albuterol. Rash: - Rash developed on hands the day after using albuterol. - Described as little water on the hands. - Tried Zyrtec with no relief. - Rash is not pruritic, but hands are itchy. - History of other skin issues prior to this episode. Review of Systems: Ears/Nose/Mouth/Throat: (+) congestion Respiratory: (+) cough, (+) phlegm, (-) shortness of breath, (-) wheezing Skin: (+) rash, (+) itching (hands) Allergies: Allergies: Clindamycin Rash Past Medical History: PAST MEDICAL HISTORY Diagnosis Date Hypothyroidism PCOS (polycystic ovarian syndrome) Pre-diabetes Past Surgical History: PAST SURGICAL HISTORY Procedure Laterality Date TONSILLECTOMY AND ADENOIDECTOMY HX Family History: FAMILY HISTORY Problem Relation Age of Onset Diabetes Mother Tobacco History: Tobacco Use: Types: Cigarettes Medications: Current Outpatient Medications Medication Sig Dispense Refill cholecalciferol, Vitamin D3, (VITAMIN D3) 1,250 mcg (50,000 unit) cap capsule Take 1 capsule by mouth one time a week. pantoprazole DR (PROTONIX) 40 mg tablet Take 1 tablet by mouth every afternoon. spironolactone (ALDACTONE) 50 mg tablet Take 50 mg by mouth once daily. ferrous sulfate 325 mg (65 mg iron) tablet Take 1 tablet by mouth once daily. Norethindrone, Contraceptive, 0.35 mg tablet TAKE 1 TABLET BY MOUTH EVERY DAY. START DAY 1 OF MENSTRUAL CYCLE guaiFENesin (MUCINEX) 600 mg 12 hr tablet Take 2 tablets by mouth twice daily. 40 tablet 0 ibuprofen (MOTRIN) 600 mg tablet Take 1 tablet by mouth every 6 hours as needed for Pain. 20 tablet 0 METFORMIN HCL (METFORMIN ORAL) Take by mouth. CALCIUM CARBONATE/VITAMIN D3 (VITAMIN D-3 ORAL) Take by mouth. levothyroxine (SYNTHROID) 75 mcg tablet Take 1 tablet by mouth once daily. predniSONE (DELTASONE) 20 mg tablet Take 2 tablets by mouth once daily for 4 days. 8 tablet 0 amoxicillin (AMOXIL) 875 mg tablet Take 1 tablet by mouth two times a day for 7 days. 14 tablet 0 albuterol HFA (PROVENTIL HFA, VENTOLIN HFA) 90 mcg/actuation inhaler Inhale 2 puffs as instructed every 6 hours as needed for wheezing/shortness of breath. (Patient not taking: Reported on 08/18/2024) 8 g 0 No current facility-administered medications for this visit. Vitals: BP 120/78 Pulse 92 Temp 37.1 ?C (98.7 ?F) (Tympanic) Resp 16 Wt 130 kg (286 lb 9.6 oz) LMP 01/21/2024 (Approximate) SpO2 97% BMI 44.46 kg/m? Physical Exam: Physical Exam Vitals and nursing note reviewed. Constitutional: General: She is not in acute distress. HENT: Head: Normocephalic. Right Ear: Tympanic membrane, ear canal and external ear normal. Left Ear: Tympanic membrane, ear canal and external ear normal. Nose: Mucosal edema present. Mouth/Throat: Mouth: Mucous membranes are moist. Pharynx: Oropharynx is clear. Cardiovascular: Rate and Rhythm: Normal rate and regular rhythm. Pulmonary: Effort: Pulmonary effort is normal. Breath sounds: Normal breath sounds. Neurological: Mental Status: She is alert. Psychiatric: Behavior: Behavior is cooperative. Procedures ASSESSMENT/PLAN: 1. Acute bronchitis, unspecified organism (J20.9) - Symptoms of cough and congestion have slightly improved; no wheezing currently, but cough persists with difficulty expectorating sputum. - Developed a rash on hands following albuterol use; Zyrtec was ineffective in alleviating the rash. - Prescribed a course of prednisone to aid in reducing inflammation and facilitating resolution of bronchitis symptoms. - Advised to continue taking Zyrtec. - Provided a work note for today. - See patient instructions for further recommendations. - Pt education along with discharge instructions given to pt - Discussed Red Flag signs and when to go to ER. - Pt agreeable with plan and verbalizes understanding. - Follow up with PCP if symptoms worsen or do not improve in the next 2-3 days. Recording using [employer] software for draft documentation of the visit was discussed with the patient/authorized admitting representative; all questions welcomed and answered. Patient/authorized admitting representative agreed to proceed Dalia Gonzales APRN.CNP 08/18/24 5:00 PM Differential Diagnoses - Acute Bronchitis is more likely for the f (more content not included)... [facility]04-30-2025 History of Present illness Narrative* Dalia Gonzales APRN.CNP - 08/18/2024 5:00 PM EDT Images from the original note were not included. [facility] PATIENT NAME: Gabrielle Cooper DATE OF : 1995 TODAYS' DATE: 08/18/2024 Subjective: Ms. Cooper is a 29 year old female The patient is a 29-year-old female presenting for follow-up of a persistent cough and new onset rash. History of Present Illness: Cough: - Persistent cough x2 weeks. - Initial symptoms included cough, congestion, and wheezing. - Wheezing has resolved; cough is now productive but feels like it stays in there. - Denies dyspnea. - Previously treated with albuterol. Rash: - Rash developed on hands the day after using albuterol. - Described as little water on the hands. - Tried Zyrtec with no relief. - Rash is not pruritic, but hands are itchy. - History of other skin issues prior to this episode. Review of Systems: Ears/Nose/Mouth/Throat: (+) congestion Respiratory: (+) cough, (+) phlegm, (-) shortness of breath, (-) wheezing Skin: (+) rash, (+) itching (hands) Allergies: Allergies: Clindamycin Rash Past Medical History: PAST MEDICAL HISTORY Diagnosis Date Hypothyroidism PCOS (polycystic ovarian syndrome) Pre-diabetes Past Surgical History: PAST SURGICAL HISTORY Procedure Laterality Date TONSILLECTOMY AND ADENOIDECTOMY HX Family History: FAMILY HISTORY Problem Relation Age of Onset Diabetes Mother Tobacco History: Tobacco Use: Types: Cigarettes Medications: Current Outpatient Medications Medication Sig Dispense Refill cholecalciferol, Vitamin D3, (VITAMIN D3) 1,250 mcg (50,000 unit) cap capsule Take 1 capsule by mouth one time a week. pantoprazole DR (PROTONIX) 40 mg tablet Take 1 tablet by mouth every afternoon. spironolactone (ALDACTONE) 50 mg tablet Take 50 mg by mouth once daily. ferrous sulfate 325 mg (65 mg iron) tablet Take 1 tablet by mouth once daily. Norethindrone, Contraceptive, 0.35 mg tablet TAKE 1 TABLET BY MOUTH EVERY DAY. START DAY 1 OF MENSTRUAL CYCLE guaiFENesin (MUCINEX) 600 mg 12 hr tablet Take 2 tablets by mouth twice daily. 40 tablet 0 ibuprofen (MOTRIN) 600 mg tablet Take 1 tablet by mouth every 6 hours as needed for Pain. 20 tablet0 METFORMIN HCL (METFORMIN ORAL) Take by mouth. CALCIUM CARBONATE/VITAMIN D3 (VITAMIN D-3 ORAL) Take by mouth. levothyroxine (SYNTHROID) 75 mcg tablet Take 1 tablet by mouth once daily. predniSONE (DELTASONE) 20 mg tablet Take 2 tablets by mouth once daily for 4 days. 8 tablet 0 amoxicillin (AMOXIL) 875 mg tablet Take 1 tablet by mouth two times a day for 7 days. 14 tablet 0 albuterol HFA (PROVENTIL HFA, VENTOLIN HFA) 90 mcg/actuation inhaler Inhale 2 puffs as instructed every 6 hours as needed for wheezing/shortness of breath. (Patient not taking: Reported on 08/18/2024)8 g 0 No current facility-administered medications for this visit. Vitals: BP 120/78 Pulse 92 Temp 37.1 C (98.7 F) (Tympanic) Resp 16 Wt 130 kg (286 lb 9.6 oz) LMP 01/21/2024 (Approximate) SpO2 97% BMI 44.46 kg/m Physical Exam: Physical Exam Vitals and nursing note reviewed. Constitutional: General: She is not in acute distress. HENT: Head: Normocephalic. Right Ear: Tympanic membrane, ear canal and external ear normal. Left Ear: Tympanic membrane, ear canal and external ear normal. Nose: Mucosal edema present. Mouth/Throat: Mouth: Mucous membranes are moist. Pharynx: Oropharynx is clear. Cardiovascular: Rate and Rhythm: Normal rate and regular rhythm. Pulmonary: Effort: Pulmonary effort is normal. Breath sounds: Normal breath sounds. Neurological: Mental Status: She is alert. Psychiatric: Behavior: Behavior is cooperative. Procedures ASSESSMENT/PLAN: 1. Acute bronchitis, unspecified organism (J20.9) - Symptoms of cough and congestion have slightly improved; no wheezing currently, but cough persists with difficulty expectorating sputum. - Developed a rash on hands following albuterol use; Zyrtec was ineffective in alleviating the rash. - Prescribed a course of prednisone to aid in reducing inflammation and facilitating resolution of bronchitis symptoms. - Advised to continue taking Zyrtec. - Provided a work note for today. - See patient instructions for further recommendations. - Pt education along with discharge instructions given to pt - Discussed Red Flag signs and when to go to ER. - Pt agreeable with plan and verbalizes understanding. - Follow up with PCP if symptoms worsen or do not improve in the next 2-3 days. Recording using [employer] software for draft documentation of the visit was discussed with the patient/authorized admitting representative; all questions welcomed and answered. Patient/authorized admitting representative agreed to proceed Dalia Gonzales APRN.CNP 08/18/24 5:00 PM Differential Diagnoses - Acute Bronchitis is more likely for the following reason(s): suggested by H&P Disposition The patient was discharged. OTC Medications were advised: Zyrtec [facility] Instructions* Patient Instructions* Dalia Gonzales APRN.CNP - 08/18/2024 4:55 PM EDT Acute Bronchitis What is acute bronchitis? Acute bronchitis is an infection of the bronchial (say: sammy ) tree. The bronchial tree ismade up of the tubes that carry air into your lungs. When these tubes get infected, they swell and mucus (thick fluid) forms inside them. This makes it hard for you to breathe. You may cough up mucusand wheeze (make a whistling sound when you breathe). What causes acute bronchitis? Acute bronchitis is almost always caused by viruses that attack the lining of the bronchial tree and cause infection. As your body fights back against these viruses, more swelling occurs and more mucus is made. It takes time for your body to kill the viruses and heal the damage to your bronchial tubes. In most cases, the same viruses that cause colds cause acute bronchitis. Research has shown that bacterial infection is a much less common cause of bronchitis than we used to think. Very rarely, an infection caused by a fungus can cause acute bronchitis. How do people get acute bronchitis? The viruses that cause acute bronchitis are sprayed into the air or onto people s hands when they cough. You can get acute bronchitis if you breathe in these viruses. You can also get it if you toucha hand that is coated with the viruses. If you smoke or are around damaging fumes (such as those in certain kinds of factories), you are more likely to get acute bronchitis and to have it longer. This is because your bronchial tree is already damaged. How is acute bronchitis treated? Most cases of acute bronchitis will go away on their own after a few days or a week. It's a good idea to get plenty of rest, drink lots of noncaffeinated fluids (for example, water and fruit juices) and increase the humidity in your environment. Because acute bronchitis is usually caused by viruses, antibiotics (medicines that kill bacteria) usually do not help. Even if you cough up mucus that is colored or thick, antibiotics probably won t help you get better any faster. If you smoke, you should cut down on the number of cigarettes you smoke, or stop smoking altogether. This will help your bronchial tree heal faster. For some people with acute bronchitis, doctors prescribe medicines that are usually used to treat asthma. These medicines can help open the bronchial tubes and clear out mucus. They are usually givenwith an inhaler. An inhaler sprays the medicine right into the bronchial tree. Your doctor will decide if this treatment is right for you. How long will the cough from acute bronchitis last? You should call your doctor if: You continue to wheeze and cough for more than 2 weeks, especially at night or when you are active. You continue to cough for more than 2 weeks and sometimes have a bad-tasting fluid come up into your mouth. You have a cough, you feel very sick and weak, and you have a high fever that doesn t go down. You cough up blood. You have trouble breathing when you lie down. Your feet swell. Sometimes the cough from acute bronchitis lasts for several weeks or months. Usually this happens because the bronchial tree is taking a long time to heal. However, a cough that doesn t go away may be a sign of another problem, like asthma or pneumonia. If you smoke it is advised that you quit smoking. CONTACT YOUR DOCTOR IF: You have fevers for longer than five days or a fever more than 102 degrees You are still sick after 10 days After several days you are getting worse rather than better 4. You develop nausea, vomiting, diarrhea, or a rash. Go to the ER if you - experience pressure or pain in your chest - experience difficulty swallowing - experience difficulty breathing Follow up with your physician in 5-7 days or before if your symptoms get worse. Thank you for coming to [facility] today. I appreciate your confidence in choosing the [facility] for your medical care. Dalia Gonzales APRN.[employer] REMOVER [facility] [address] [facility] [id number] documented in this encounterMer[facility]04[facility] Radiology Diagnostic study note [facility] Imaging Services [address] [place], [place] [address] Chest PA and Lateral MR#: [id number] Acct: [id number] Name: GABRIELLE COOPER Rep #: [id number] : 1995 F 29 From: Abe Cuenca MD PCP: Dr. Lenore Meier MD Status: R ER Study:Chest PA and Lateral Date of Exam: 08/11/24 Exam# [id number] Ordering Dr: Nathen De Jesus DO PROCEDURE: CHEST PA AND LATERAL 08/11/2024 REASON FOR EXAM: COUGH TECHNIQUE: Frontal and lateral views of the chest. FINDINGS: Hardware: None Heart: The heart size is normal. Mediastinum: The mediastinal contour is unremarkable. Lungs: The lungs are clear. Bones: The bones are unremarkable. RAD/Chest PA and Lateral IMPRESSION: NO ACUTE FINDINGS. Reading Location: [id number] CC: Dr. Nathen Jacobo DO; Dr. Lenore Meier MD ~ Project Engineering Manager: Signed [facility]04-21-2025 NoteHNO ID: [id number] Author: JAKE BERNABE APRN.[employer] REMOVER Service: ? Author Type: Nurse Practitioner Type: Progress Notes Filed: 08/09/2024 19:50 Note Text: Subjective HPI Nontoxic-appearing 29-year-old female presents urgent care chief complaint cough wheezing nasal congestion sore throat. Duration of symptoms 3 days. Associate symptoms listed above. OTC medications none today. Sick contacts unknown. States mother sick currently with similar signs and symptoms her started a few days after patient's. States does have some shortness of breath with coughing. Did have a rescue inhaler at home where she had a couple puffs less. Did try to use that this did not help. Denies any chest pain or hemoptysis. No pleuritic pain. No fevers. Is not . Is not breast-feeding. Past medical history prescription medications allergies reviewed. .Patient presents with: Cough: Cough and wheezing x 3 days PAST MEDICAL HISTORY Diagnosis Date Hypothyroidism PCOS (polycystic ovarian syndrome) Pre-diabetes PAST SURGICAL HISTORY Procedure Laterality Date TONSILLECTOMY AND ADENOIDECTOMY HX ALLERGIES Clindamycin MEDICATIONS cholecalciferol, Vitamin D3, (VITAMIN D3) 1,250 mcg (50,000 unit) cap capsule Take 1 capsule by mouth one time a week. pantoprazole DR (PROTONIX) 40 mg tablet Take 1 tablet by mouth every afternoon. spironolactone (ALDACTONE) 50 mg tablet Take 50 mg by mouth once daily. ferrous sulfate 325 mg (65 mg iron) tablet Take 1 tablet by mouth once daily. Norethindrone, Contraceptive, 0.35 mg tablet TAKE 1 TABLET BY MOUTH EVERY DAY. START DAY 1 OF MENSTRUAL CYCLE guaiFENesin (MUCINEX) 600 mg 12 hr tablet Take 2 tablets by mouth twice daily. (Patient not taking: Reported on 06/28/2023) ibuprofen (MOTRIN) 600 mg tablet Take 1 tablet by mouth every 6 hours as needed for Pain. (Patient not taking: Reported on 02/06/2024) METFORMIN HCL (METFORMIN ORAL) Take by mouth. (Patient not taking: Reported on 02/06/2024) CALCIUM CARBONATE/VITAMIN D3 (VITAMIN D-3 ORAL) Take by mouth. levothyroxine (SYNTHROID) 75 mcg tablet Take 1 tablet by mouth once daily. FAMILY HISTORY Problem Relation Age of Onset Diabetes Mother Social History Tobacco Use Smoking status: Every Day Current packs/day: 0.50 Average packs/day: 0.5 packs/day for 12.3 years (6.2 ttl pk-yrs) Types: Cigarettes Start date: 04/21/2012 Smokeless tobacco: Never Substance Use Topics Alcohol use: No Drug use: No BP 118/78 Pulse 88 Temp 36.6 ?C (97.8 ?F) (Tympanic) Resp 18 Wt 128.2 kg (282 lb 10.1 oz) LMP 01/21/2024 (Approximate) SpO2 97% BMI 43.84 kg/m? Review of Systems Constitutional: Negative for chills, fever and malaise/fatigue. HENT: Positive for congestion and sore throat. Negative for ear discharge, ear pain and sinus pain. Eyes: Negative for blurred vision, pain, discharge and redness. Respiratory: Positive for cough and wheezing. Negative for hemoptysis, sputum production, shortness of breath and stridor. Cardiovascular: Negative for chest pain. Gastrointestinal: Negative for abdominal pain, diarrhea, nausea and vomiting. Musculoskeletal: Negative for myalgias. Skin: Negative for itching and rash. Neurological: Positive for headaches. Negative for dizziness. Objective Physical Exam Constitutional: General: She is not in acute distress. Appearance: She is not diaphoretic. HENT: Head: Normocephalic. Jaw: No trismus, tenderness, swelling or pain on movement. Nose: Congestion present. Mouth/Throat: Mouth: Mucous membranes are moist. Pharynx: Oropharynx is clear. Uvula midline. No pharyngeal swelling, oropharyngeal exudate, posterior oropharyngeal erythema or uvula swelling. Eyes: Conjunctiva/sclera: Conjunctivae normal. Pupils: Pupils are equal, round, and reactive to light. Cardiovascular: Rate and Rhythm: Normal rate and regular rhythm. Heart sounds: Normal heart sounds. Pulmonary: Effort: Pulmonary effort is normal. No tachypnea, accessory muscle usage or respiratory distress. Breath sounds: No stridor. Wheezing present. No rhonchi or rales. Abdominal: General: There is no distension. Palpations: Abdomen is soft. Tenderness: There is no abdominal tenderness. There is no guarding or rebound. Musculoskeletal: Cervical back: Normal range of motion and neck supple. No edema, erythema, rigidity or tenderness. No pain with movement. Normal range of motion. Lymphadenopathy: Cervical: No cervical adenopathy. Skin: General: Skin is warm and dry. Neurological: Mental Status: She is alert and oriented to person, place, and time. ASSESSMENT/PLAN: 1. URI with cough and congestion - ICD9: 465.9, ICD10: J06.9 - Discussed viral etiology and rationale for treatment. - Symptomatic treatment with prn analgesia - Supportive care with fluids and rest No evidence of bacterial infection on today's exam. Treat as viral etiology. Patient was educated on (more content not included)...[facility] 08-09-2024 History of Present illness Narrative* Jake Bernabe, JORDEN.[facility] - 08/09/2024 7:35 PM EDT Subjective HPI Nontoxic-appearing 29-year-old female presents urgent care chief complaint cough wheezing nasal congestion sore throat. Duration of symptoms 3 days. Associate symptoms listed above. OTC medications none today. Sick contacts unknown. States mother sick currently with similar signs and symptoms her started a few days after patient's. States does have some shortness of breath with coughing. Did havea rescue inhaler at home where she had a couple puffs less. Did try to use that this did not help. Denies any chest pain or hemoptysis. No pleuritic pain. No fevers. Is not . Is not breast-feeding. Past medical history prescription medications allergies reviewed. .Patient presents with: Cough: Cough and wheezing x 3 days PAST MEDICAL HISTORY Diagnosis Date Hypothyroidism PCOS (polycystic ovarian syndrome) Pre-diabetes PAST SURGICAL HISTORY Procedure Laterality Date TONSILLECTOMY AND ADENOIDECTOMY HX ALLERGIES Clindamycin MEDICATIONS cholecalciferol, Vitamin D3, (VITAMIN D3) 1,250 mcg (50,000 unit) cap capsule Take 1 capsule by mouth one time a week. pantoprazole DR (PROTONIX) 40 mg tablet Take 1 tablet by mouth every afternoon. spironolactone (ALDACTONE) 50 mg tablet Take 50 mg by mouth once daily. ferrous sulfate 325 mg (65 mg iron) tablet Take 1 tablet by mouth once daily. Norethindrone, Contraceptive, 0.35 mg tablet TAKE 1 TABLET BY MOUTH EVERY DAY. START DAY 1 OF MENSTRUAL CYCLE guaiFENesin (MUCINEX) 600 mg 12 hr tablet Take 2 tablets by mouth twice daily. (Patient not taking:Reported on 06/28/2023) ibuprofen (MOTRIN) 600 mg tablet Take 1 tablet by mouth every 6 hours as needed for Pain. (Patient not taking: Reported on 02/06/2024) METFORMIN HCL (METFORMIN ORAL) Take by mouth. (Patient not taking: Reported on 02/06/2024) CALCIUM CARBONATE/VITAMIN D3 (VITAMIN D-3 ORAL) Take by mouth. levothyroxine (SYNTHROID) 75 mcg tablet Take 1 tablet by mouth once daily. FAMILY HISTORY Problem Relation Age of Onset Diabetes Mother Social History Tobacco Use Smoking status: Every Day Current packs/day: 0.50 Average packs/day: 0.5 packs/day for 12.3 years (6.2 ttl pk-yrs) Types: Cigarettes Start date: 04/21/2012 Smokeless tobacco: Never Substance Use Topics Alcohol use: No Drug use: No BP 118/78 Pulse 88 Temp 36.6 C (97.8 F) (Tympanic) Resp 18 Wt 128.2 kg (282 lb 10.1 oz) LMP 01/21/2024 (Approximate) SpO2 97% BMI 43.84 kg/m Review of Systems Constitutional: Negative for chills, fever and malaise/fatigue. HENT: Positive for congestion and sore throat. Negative for ear discharge, ear pain and sinus pain. Eyes: Negative for blurred vision, pain, discharge and redness. Respiratory: Positive for cough and wheezing. Negative for hemoptysis, sputum production, shortnessof breath and stridor. Cardiovascular: Negative for chest pain. Gastrointestinal: Negative for abdominal pain, diarrhea, nausea and vomiting. Musculoskeletal: Negative for myalgias. Skin: Negative for itching and rash. Neurological: Positive for headaches. Negative for dizziness. Objective Physical Exam Constitutional: General: She is not in acute distress. Appearance: She is not diaphoretic. HENT: Head: Normocephalic. Jaw: No trismus, tenderness, swelling or pain on movement. Nose: Congestion present. Mouth/Throat: Mouth: Mucous membranes are moist. Pharynx: Oropharynx is clear. Uvula midline. No pharyngeal swelling, oropharyngeal exudate, posterior oropharyngeal erythema or uvula swelling. Eyes: Conjunctiva/sclera: Conjunctivae normal. Pupils: Pupils are equal, round, and reactive to light. Cardiovascular: Rate and Rhythm: Normal rate and regular rhythm. Heart sounds: Normal heart sounds. Pulmonary: Effort: Pulmonary effort is normal. No tachypnea, accessory muscle usage or respiratory distress. Breath sounds: No stridor. Wheezing present. No rhonchi or rales. Abdominal: General: There is no distension. Palpations: Abdomen is soft. Tenderness: There is no abdominal tenderness. There is no guarding or rebound. Musculoskeletal: Cervical back: Normal range of motion and neck supple. No edema, erythema, rigidity or tenderness. No pain with movement. Normal range of motion. Lymphadenopathy: Cervical: No cervical adenopathy. Skin: General: Skin is warm and dry. Neurological: Mental Status: She is alert and oriented to person, place, and time. ASSESSMENT/PLAN: 1. URI with cough and congestion - ICD9: 465.9, ICD10: J06.9 - Discussed viral etiology and rationale for treatment. - Symptomatic treatment with prn analgesia - Supportive care with fluids and rest No evidence of bacterial infection on today's exam. Treat as viral etiology. Patient was educated on supportive therapies. Patient will follow up with primary care provider as needed. Patient was instructed to immediately proceed to emergency room for any new, worsening, or symptoms lasting longer than anticipated. The patient's clinical presentation is otherwise unremarkable at this time. Based on exam and clinical finding, the patient is stable for discharge. Plan of care was discussed with patient. Patient verbalizes understanding and agrees to plan of care. This note was generated using Exabre software. It may contain errors in wording, punctuation, or spelling. Jake Bernabe APRN.KIA documented in this encounterMercy Health [facility]. [facility]04-[facility]25 Radiology Diagnostic study note [facility] Imaging Services [address] [place] [address] [id number] Pelvic w/ Transvaginal MR#: [id number] Acct: [id number] Name: GABRIELLE COOPER Rep #: [id number] : 1995 F 29 From: Arpit Rogers MD PCP: Dr. Lenore Meier MD Status: R EG CLI Study:Pelvic w/ Transvaginal Date of Exam: 07/21/24 Exam# [id number] Ordering Dr: Diane Vasquez NP PROCEDURE: PELVIC W/ TRANSVAGINAL REASON FOR EXAM: Follow-up for right ovarian cyst. TECHNIQUE: Transabdominal and transvaginal pelvic ultrasound COMPARISON: Comparison is made with prior study dated July 05, 2024. FINDINGS: Measurements: Uterus: 7.8 cm x 5 cm x 3.2 cm with a volume of 78.05 mL Endometrial Thickness: 6.7 mm Right Ovary: 3.3 cm x 2.6 cm x 3.1 cm with a volume of 32.4 mL. Left Ovary: 3.7 cm x 2.9 cm x 3.7 cm with a volume of 33.7 mL. TRANSABDOMINAL: Uterus: Unremarkable Endometrium: Unremarkable Right ovary: Residual 4.8 cm 3.8 cm x 2.5 cm right ovarian cyst. Left ovary: Unremarkable Transvaginal sonography was performed to better visualize the endometrium. TRANSVAGINAL: Uterus: Unremarkable Endometrium: Unremarkable Right ovary: Persistent 4.8 cm x 3.8 cm 2.5 cm right ovarian cyst. Left ovary: Unremarkable Other adnexal findings: None. Cul-de-sac: No free intraperitoneal fluid identified. Tenderness: US/Pelvic w/ Transvaginal IMPRESSION: Persistent 4.8 cm x 3.8 cm 2.5 cm right ovarian cyst. Reading Location: [facility] CC: BELLA Vasquez; Dr. Lenore Meier MD ~ Project Engineering Manager: Signed [facility]03-12-2025 Evaluation note* Diagnosis Onset Date Resolution Status Admit Date Dermatitis chronic June 30 3:30pm Hypersomnolence chronic June 3:30pm Hypertension chronic June 30, 2024 3:30pm Hypothyroidism chronic June 3:30pm Iron deficiency chronic June 3:30pm PCOS (polycystic ovarian syndrome) chronic June 30, 2024 3:30pm [facility] Services Work Phone: 1(220) 843-310701-17-2025 Evaluation note* Diagnosis Onset Date Resolution Status Admit Date Constipation acute April 10:30am Epigastric pain acute April 212024 10:30am Dermatitis chronic June 30 3:30pm Hypersomnolence chronic June 3:30pm Hypertension chronic June 30, 2024 3:30pm Hypothyroidism chronic June 3:30pm Iron deficiency chronic June 3:30pm PCOS (polycystic ovarian syndrome) chronic June 30, 2024 3:30pm [facility] Work Phone: [phone]) 902-518212-09-2024 NoteHNO ID: [id number] Author: BETO DOBSON PA-C Service: ? Author Type: Physician Office Technician Type: Progress Notes Filed: 03/29/2024 14:42 Note Text: This note was created using Pre Play Sportsriter. Subjective Gabrielle Cooper is a 28 year old female. HPI Presents with a chief complaint of right lower tooth pain over the past 4 days. She has had some drainage from it. She has had tooth infections previously. She does have a dental appointment in 2 days for [facility]. No fevers or chills. Review of Systems Constitutional: Negative. HENT: Positive for dental problem. Respiratory: Negative. Cardiovascular: Negative. Genitourinary: Negative. Musculoskeletal: Negative. All other systems reviewed and are negative. PAST MEDICAL HISTORY Diagnosis Date Hypothyroidism PCOS (polycystic ovarian syndrome) Pre-diabetes Current Outpatient Medications Medication Sig Dispense Refill cholecalciferol, Vitamin D3, (VITAMIN D3) 1,250 mcg (50,000 unit) cap capsule Take 1 capsule by mouth one time a week. pantoprazole DR (PROTONIX) 40 mg tablet Take 1 tablet by mouth every afternoon. spironolactone (ALDACTONE) 50 mg tablet Take 50 mg by mouth once daily. ferrous sulfate 325 mg (65 mg iron) tablet Take 1 tablet by mouth once daily. Norethindrone, Contraceptive, 0.35 mg tablet TAKE 1 TABLET BY MOUTH EVERY DAY. START DAY 1 OF MENSTRUAL CYCLE CALCIUM CARBONATE/VITAMIN D3 (VITAMIN D-3 ORAL) Take by mouth. levothyroxine (SYNTHROID) 75 mcg tablet Take 1 tablet by mouth once daily. amoxicillin-clavulanate potassium (AUGMENTIN) 875-125 mg per tablet Take 1 tablet by mouth two times a day for 7 days. 14 tablet 0 guaiFENesin (MUCINEX) 600 mg 12 hr tablet Take 2 tablets by mouth twice daily. (Patient not taking: Reported on 06/28/2023) 40 tablet 0 ibuprofen (MOTRIN) 600 mg tablet Take 1 tablet by mouth every 6 hours as needed for Pain. (Patient not taking: Reported on 02/06/2024) 20 tablet 0 METFORMIN HCL (METFORMIN ORAL) Take by mouth. (Patient not taking: Reported on 02/06/2024) No current facility-administered medications for this visit. PAST SURGICAL HISTORY Procedure Laterality Date TONSILLECTOMY AND ADENOIDECTOMY HX FAMILY HISTORY Problem Relation Age of Onset Diabetes Mother Social History Tobacco Use Smoking status: Every Day Current packs/day: 0.50 Average packs/day: 0.5 packs/day for 11.9 years (6.0 ttl pk-yrs) Types: Cigarettes Start date: 04/21/2012 Smokeless tobacco: Never Substance Use Topics Alcohol use: No Drug use: No Objective BP 118/68 Pulse 88 Temp 36.8 ?C (98.3 ?F) Resp 16 Wt 125.3 kg (276 lb 3.8 oz) LMP 01/21/2024 (Approximate) SpO2 98% BMI 42.85 kg/m? Physical Exam Vitals reviewed. Constitutional: Appearance: Normal appearance. HENT: Head: Normocephalic and atraumatic. Mouth/Throat: Comments: Patient has some mild gumline swelling of tooth #29 and 30. Dental decay and cracked tooth noted. Skin: General: Skin is warm and dry. Neurological: Mental Status: She is alert. Assessment and Plan ASSESSMENT/PLAN: 1. Dental infection - ICD9: 522.4, ICD10: K04.7 Will treat with Augmentin. Follow-up with dentist. Patient agreeable. AKI [facility]12-09-2024 History of Present illness Narrative* Beto Dobson PA-C - 03/29/2024 2:40 PM EST This note was created using Pre Play Sportsriter. Subjective Gabrielle Cooper is a 28 year old female. HPI Presents with a chief complaint of right lower tooth pain over the past 4 days. She has had some drainage from it. She has had tooth infections previously. She does have a dental appointment in 2 days for [facility]. No fevers or chills. Review of Systems Constitutional: Negative. HENT: Positive for dental problem. Respiratory: Negative. Cardiovascular: Negative. Genitourinary: Negative. Musculoskeletal: Negative. All other systems reviewed and are negative. PAST MEDICAL HISTORY Diagnosis Date Hypothyroidism PCOS (polycystic ovarian syndrome) Pre-diabetes Current Outpatient Medications Medication Sig Dispense Refill cholecalciferol, Vitamin D3, (VITAMIN D3) 1,250 mcg (50,000 unit) cap capsule Take 1 capsule by mouth one time a week. pantoprazole DR (PROTONIX) 40 mg tablet Take 1 tablet by mouth every afternoon. spironolactone (ALDACTONE) 50 mg tablet Take 50 mg by mouth once daily. ferrous sulfate 325 mg (65 mg iron) tablet Take 1 tablet by mouth once daily. Norethindrone, Contraceptive, 0.35 mg tablet TAKE 1 TABLET BY MOUTH EVERY DAY. START DAY 1 OF MENSTRUAL CYCLE CALCIUM CARBONATE/VITAMIN D3 (VITAMIN D-3 ORAL) Take by mouth. levothyroxine (SYNTHROID) 75 mcg tablet Take 1 tablet by mouth once daily. amoxicillin-clavulanate potassium (AUGMENTIN) 875-125 mg per tablet Take 1 tablet by mouth two times a day for 7 days. 14 tablet 0 guaiFENesin (MUCINEX) 600 mg 12 hr tablet Take 2 tablets by mouth twice daily. (Patient not taking:Reported on 06/28/2023) 40 tablet 0 ibuprofen (MOTRIN) 600 mg tablet Take 1 tablet by mouth every 6 hours as needed for Pain. (Patient not taking: Reported on 02/06/2024) 20 tablet 0 METFORMIN HCL (METFORMIN ORAL) Take by mouth. (Patient not taking: Reported on 02/06/2024) No current facility-administered medications for this visit. PAST SURGICAL HISTORY Procedure Laterality Date TONSILLECTOMY AND ADENOIDECTOMY HX FAMILY HISTORY Problem Relation Age of Onset Diabetes Mother Social History Tobacco Use Smoking status: Every Day Current packs/day: 0.50 Average packs/day: 0.5 packs/day for 11.9 years (6.0 ttl pk-yrs) Types: Cigarettes Start date: 04/21/2012 Smokeless tobacco: Never Substance Use Topics Alcohol use: No Drug use: No Objective BP 118/68 Pulse 88 Temp 36.8 C (98.3 F) Resp 16 Wt 125.3 kg (276 lb 3.8 oz) LMP 01/21/2024 (Approximate) SpO2 98% BMI 42.85 kg/m Physical Exam Vitals reviewed. Constitutional: Appearance: Normal appearance. HENT: Head: Normocephalic and atraumatic. Mouth/Throat: Comments: Patient has some mild gumline swelling of tooth #29 and 30. Dental decay and cracked tooth noted. Skin: General: Skin is warm and dry. Neurological: Mental Status: She is alert. Assessment and Plan ASSESSMENT/PLAN: 1. Dental infection - ICD9: 522.4, ICD10: K04.7 Will treat with Augmentin. Follow-up with dentist. Patient agreeable. Beto Dobson PA-C documented in this encounterMercy [facility]. 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 Location: [place] [address] History and Physical Date of Admission: 03/02/24 Nurse's Note: OV 02.03.24 Pt here for c/o abdominal pressure she has been experiencing for about a month. She takes pantoprazole daily. Has never had an EGD or colonoscopy. [facility] Medical History Bradycardia Vitamin D deficiency Iron deficiency Fatigue Anxiety Depression Hypothyroidism Body mass index [BMI] 45.0-49.9, adult Obesity VINEET I (cervical intraepithelial neoplasia I) Abnormal Pap smear of cervix PCOS (polycystic ovarian syndrome) Surgical History History of tonsillectomy Family History Grandfather Heart diseaseMother DiabetesGrandmother Diabetes Social History current occupational status: employed current occupation: [employer] Smoking Status: Current some day smoker tobacco type: cigarettes alcohol intake: never substance use type: does not use caffeine: Yes what type of physical activity do you participate in: none frequency: 3-4 times per week seatbelt use: always do you feel safe at home: Yes additional social history: single HPI HPI Chief Complaint: abdominal pressure Details: GABRIELLE COOPER, is a 28 F who presents to the office today for establishment with [facility]. She has a PMHx of VINEET I, anxiety, depression, PCOS, hypothyroidism, iron deficiency, bradycardia and hydrosalpinx. She is here today for evaluation of abdominal/epigastric pressure which has been persistent for over a month now. She was seen in the ED here at [facility] about a month ago with normal work up. She has been taking Pantoprazole daily since then and has not noticed much of a difference. She feels all this is related to taking Amoxicillin for a tooth infection. She also mentions that she has intentionally lost some weight recently and wonders if this could be attributing it this feeling. She has had gastritis in the past and tells me it does not feel the same. She has never had an EGD. She denies n/v, heartburn, diarrhea constipation or melena. [facility] ED .06.14; visit for abdominal pain and dark stool CT abdomen pelvis .06.14; Possible hydrosalpinx on the right. Otherwise no acute disease. Recommend pelvic ultrasound. ROS Const Constitutional: Positive for fatigue and headache(s); No fever(s) or weight change ENT ENT: Positive for headache(s); No difficulty swallowing Gastro GI: Positive for abdominal pain, bloating, heartburn and excessive flatus; No belching, change in bowel habits, change in stool character, coffee ground emesis, constipation, cramping, diarrhea, difficulty swallowing, feeling full early, incontinent of stools, Vomiting blood/hematemesis, Blood in stool, loose stools, Black,tarry stools, nausea/dyspepsia, pain with swallowing, vomiting or other Musc Musculoskeletal: No joint pain Skin Skin: No yellowing of the eye or itchy eyes Neuro Neurology: Positive for headache(s) Psych Psychiatric: Positive for anxiety and Positive for depression Endo Endocrine: Positive for fatigue; No weight change Aller/Imm Allergy/Immunologic: No itchy eyes Brett/Lymp Hematologic/Lymphatic: No easy bleeding or easy bruising Exam Const General: cooperative and comfortable Nutritional Appearance: average body habitus and well nourished HENMT Head: normal to inspection Ears: hearing grossly normal bilaterally Nose: external nose normal Face and sinus: normal facial exam Eyes General: appearance normal, both eyes and all related structures Neck Neck: normal visual inspection Chest Chest palpation inspection: normal inspection of the chest Resp Effort Inspection: normal respiratory effort GI Inspection: normal to inspection Palpation: no hepatosplenomegaly Skin General: no rashes or lesions noted Neuro General: patient alert Extrem General: normal to inspection Psych Affect: normal affect Assessment and Plan Assessment and Plan (1) Abdominal pain: Plan: Pt is a 28 yo female here for evaluation of abdominal/epigastric pressure that started over a month ago. She was taking amoxicillin for a tooth infection when this all started. She has also had an intentional weight loss and wonders if this has attributed to it. It does not feel like heartburn to her and daily PPI therapy has not been helpful. She will undergo EGD to evaluate her upper GI tract to rule out hiatal hernia, GERD or ulcer. S (more content not included)... [facility]10-18-2024 NoteHNO ID: [id number] Author: ARDEN HANNA APRN.ASBESTOS REMOVER Service: ? Author Type: Nurse Practitioner Type: Progress Notes Filed: 02/06/2024 13:29 Note Text: This note was created using NoteWriter. Subjective Gbarielle Cooper is a 28 year old female. HPI Pt was on Amoxicillin for an infected tooth about two weeks ago. Once the atb was finished pt felt a warm sensation in her body, feeling flushed, and confused. January 27 she was in the hospital for some abdominal issues her SBP was in the 170s. Prior to this her BP had been in the 120s. Review of Systems Constitutional: Negative for fatigue and fever. HENT: Negative for facial swelling. Skin: Negative for rash. Neurological: Negative for speech difficulty and headaches. Objective BP 152/82 Pulse 97 Temp 36.7 ?C (98.1 ?F) (Left Tympanic) Resp 16 Wt 118.4 kg (261 lb 0.4 oz) LMP 01/21/2024 (Approximate) SpO2 98% BMI 40.49 kg/m? Physical Exam Vitals and nursing note reviewed. Constitutional: General: She is not in acute distress. Appearance: Normal appearance. She is not ill-appearing. HENT: Head: Normocephalic. Mouth/Throat: Mouth: Mucous membranes are moist. Eyes: Conjunctiva/sclera: Conjunctivae normal. Cardiovascular: Rate and Rhythm: Normal rate and regular rhythm. Pulmonary: Effort: Pulmonary effort is normal. Breath sounds: Normal breath sounds. Musculoskeletal: General: Normal range of motion. Cervical back: Normal range of motion. Skin: General: Skin is warm and dry. Neurological: General: No focal deficit present. Mental Status: She is alert and oriented to person, place, and time. Cranial Nerves: No cranial nerve deficit. Sensory: No sensory deficit. Motor: No weakness. Gait: Gait normal. Psychiatric: Mood and Affect: Mood normal. Behavior: Behavior normal. Assessment and Plan ASSESSMENT/PLAN: 1. Elevated blood pressure reading without diagnosis of hypertension - ICD9: 796.2, ICD10: R03.0 -Recheck of blood pressure here was 138/78. Patient had a normal neurologic exam. I did not appreciate any blistering of the skin or of the mouth lips or tongue. I discussed with patient that a week out from finishing amoxicillin her body should have metabolized it out of her system. Patient does note follow-up with PCP in approximately 5 days. I instructed patient to monitor for any signs of blistering of skin along with any mental status changes. She should follow-up with her PCP for continued blood pressure monitoring and if anything worsens in the meantime she should go to the ER for evaluation. Patient understands and is agreeable. Arden Hanna APRN.[facility]10-18-2024 History of Present illness Narrative* Arden Hanna APRN.ASBESTOS REMOVER - 02/06/2024 1:15 PM EDT This note was created using Graphite Softwareter. Subjective Gabrielle Cooper is a 28 year old female. HPI Pt was on Amoxicillin for an infected tooth about two weeks ago. Once the atb was finished pt felt a warm sensation in her body, feeling flushed, and confused. January 27 she was in the hospital forsome abdominal issues her SBP was in the 170s. Prior to this her BP had been in the 120s. Review of Systems Constitutional: Negative for fatigue and fever. HENT: Negative for facial swelling. Skin: Negative for rash. Neurological: Negative for speech difficulty and headaches. Objective BP 152/82 Pulse 97 Temp 36.7 C (98.1 F) (Left Tympanic) Resp 16 Wt 118.4 kg (261 lb 0.4 oz) LMP 01/21/2024 (Approximate) SpO2 98% BMI 40.49 kg/m Physical Exam Vitals and nursing note reviewed. Constitutional: General: She is not in acute distress. Appearance: Normal appearance. She is not ill-appearing. HENT: Head: Normocephalic. Mouth/Throat: Mouth: Mucous membranes are moist. Eyes: Conjunctiva/sclera: Conjunctivae normal. Cardiovascular: Rate and Rhythm: Normal rate and regular rhythm. Pulmonary: Effort: Pulmonary effort is normal. Breath sounds: Normal breath sounds. Musculoskeletal: General: Normal range of motion. Cervical back: Normal range of motion. Skin: General: Skin is warm and dry. Neurological: General: No focal deficit present. Mental Status: She is alert and oriented to person, place, and time. Cranial Nerves: No cranial nerve deficit. Sensory: No sensory deficit. Motor: No weakness. Gait: Gait normal. Psychiatric: Mood and Affect: Mood normal. Behavior: Behavior normal. Assessment and Plan ASSESSMENT/PLAN: 1. Elevated blood pressure reading without diagnosis of hypertension - ICD9: 796.2, ICD10: R03.0 -Recheck of blood pressure here was 138/78. Patient had a normal neurologic exam. I did not appreciate any blistering of the skin or of the mouth lips or tongue. I discussed with patient that a week out from finishing amoxicillin her body should have metabolized it out of her system. Patient does note follow-up with PCP in approximately 5 days. I instructed patient to monitor for any signs of blistering of skin along with any mental status changes. She should follow-up with her PCP for continued blood pressure monitoring and if anything worsens in the meantime she should go to the ER for evaluation. Patient understands and is agreeable. Arden Hanna APRN.KIA documented in this encounterMer[facility]05-10-2024 NoteHNO ID: [id number] Author: JENNY MARTINO APRN.CNP Service: ? Author Type: Nurse Practitioner Type: Progress Notes Filed: 08/29/2023 12:00 Note Text: Subjective HPI HPI Gabrielle Cooper is a 28 year old female who presents today for CC of toothache. This started 1 week ago. Has tried otc medication for relief. Symptoms are worsened by nothing. Risk factors hx of poor dental health. Denies possibility of being . .Patient presents with: Dental Problem: Possible tooth infection lower left side x 1 week PAST MEDICAL HISTORY Diagnosis Date Hypothyroidism PCOS (polycystic ovarian syndrome) Pre-diabetes PAST SURGICAL HISTORY Procedure Laterality Date TONSILLECTOMY AND ADENOIDECTOMY HX ALLERGIES Clindamycin MEDICATIONS Norethindrone, Contraceptive, 0.35 mg tablet TAKE 1 TABLET BY MOUTH EVERY DAY. START DAY 1 OF MENSTRUAL CYCLE ibuprofen (MOTRIN) 600 mg tablet Take 1 tablet by mouth every 6 hours as needed for Pain. METFORMIN HCL (METFORMIN ORAL) Take by mouth. CALCIUM CARBONATE/VITAMIN D3 (VITAMIN D-3 ORAL) Take by mouth. LEVOTHYROXINE SODIUM (LEVOTHYROXINE ORAL) Take by mouth. amoxicillin (AMOXIL) 875 mg tablet Take 1 tablet by mouth two times a day for 10 days. guaiFENesin (MUCINEX) 600 mg 12 hr tablet Take 2 tablets by mouth twice daily. (Patient not taking: Reported on 06/28/2023) FAMILY HISTORY Problem Relation Age of Onset Diabetes Mother Social History Tobacco Use Smoking status: Every Day Packs/day: .5 Types: Cigarettes Start date: 04/21/2012 Smokeless tobacco: Never Substance Use Topics Alcohol use: No Drug use: No Review of Systems Constitutional: Negative for fever. HENT: Negative for congestion, ear pain, nosebleeds and sore throat. Respiratory: Negative for cough, shortness of breath and wheezing. Musculoskeletal: Negative for neck pain. Objective Blood pressure 124/76, pulse 85, temperature 36.7 ?C (98 ?F), resp. rate 21, weight 129.3 kg (285 lb 0.9 oz), last menstrual period 12/08/2021, SpO2 98%. Physical Exam Constitutional: General: She is not in acute distress. Appearance: She is not toxic-appearing or diaphoretic. HENT: Head: Normocephalic and atraumatic. Mouth/Throat: Lips: [place]. Mouth: Mucous membranes are moist. Pulmonary: Effort: Pulmonary effort is normal. No accessory muscle usage or respiratory distress. Lymphadenopathy: Cervical: No cervical adenopathy. Right cervical: No superficial cervical adenopathy. Left cervical: No superficial cervical adenopathy. Neurological: Mental Status: She is alert and oriented to person, place, and time. ASSESSMENT/PLAN: 1. Toothache - ICD9: 525.9, ICD10: K08.89 Take medication as ordered See dentist claudette Follow up if signs of infection worsen - AMOXICILLIN 875 MG TABLET Jenny Martino APRN.[facility]05-10-2024 History of Present illness Narrative* Jenny Martino APRN.ASBESTOS REMOVER - 08/29/2023 11:57 AM EDT Subjective HPI HPI Gabrielle Cooper is a 28 year old female who presents today for CC of toothache. This started 1 week ago. Has tried otc medication for relief. Symptoms are worsened by nothing. Risk factors hx of poor dental health. Denies possibility of being . .Patient presents with: Dental Problem: Possible tooth infection lower left side x 1 week PAST MEDICAL HISTORY Diagnosis Date Hypothyroidism PCOS (polycystic ovarian syndrome) Pre-diabetes PAST SURGICAL HISTORY Procedure Laterality Date TONSILLECTOMY AND ADENOIDECTOMY HX ALLERGIES Clindamycin MEDICATIONS Norethindrone, Contraceptive, 0.35 mg tablet TAKE 1 TABLET BY MOUTH EVERY DAY. START DAY 1 OF MENSTRUAL CYCLE ibuprofen (MOTRIN) 600 mg tablet Take 1 tablet by mouth every 6 hours as needed for Pain. METFORMIN HCL (METFORMIN ORAL) Take by mouth. CALCIUM CARBONATE/VITAMIN D3 (VITAMIN D-3 ORAL) Take by mouth. LEVOTHYROXINE SODIUM (LEVOTHYROXINE ORAL) Take by mouth. amoxicillin (AMOXIL) 875 mg tablet Take 1 tablet by mouth two times a day for 10 days. guaiFENesin (MUCINEX) 600 mg 12 hr tablet Take 2 tablets by mouth twice daily. (Patient not taking:Reported on 06/28/2023) FAMILY HISTORY Problem Relation Age of Onset Diabetes Mother Social History Tobacco Use Smoking status: Every Day Packs/day: .5 Types: Cigarettes Start date: 04/21/2012 Smokeless tobacco: Never Substance Use Topics Alcohol use: No Drug use: No Review of Systems Constitutional: Negative for fever. HENT: Negative for congestion, ear pain, nosebleeds and sore throat. Respiratory: Negative for cough, shortness of breath and wheezing. Musculoskeletal: Negative for neck pain. Objective Blood pressure 124/76, pulse 85, temperature 36.7 C (98 F), resp. rate 21, weight 129.3 kg (285 lb 0.9 oz), last menstrual period 12/08/2021, SpO2 98%. Physical Exam Constitutional: General: She is not in acute distress. Appearance: She is not toxic-appearing or diaphoretic. HENT: Head: Normocephalic and atraumatic. Mouth/Throat: Lips: [place]. Mouth: Mucous membranes are moist. Pulmonary: Effort: Pulmonary effort is normal. No accessory muscle usage or respiratory distress. Lymphadenopathy: Cervical: No cervical adenopathy. Right cervical: No superficial cervical adenopathy. Left cervical: No superficial cervical adenopathy. Neurological: Mental Status: She is alert and oriented to person, place, and time. ASSESSMENT/PLAN: 1. Toothache - ICD9: 525.9, ICD10: K08.89 Take medication as ordered See dentist claudette Follow up if signs of infection worsen - AMOXICILLIN 875 MG TABLET Jenny Martino APRN.KIA documented in this encounterMer[facility] Instructions* Patient Instructions* Carla Way APRN.KIA - 06/28/2023 2:42 PM EST ASSESSMENT/PLAN: 1. Urinary frequency - ICD9: 788.41, ICD10: R35.0 (primary diagnosis) acute - UA normal in office today - Send urine for culture - UA DIP, URINE (POC) - URINE CULTURE 2. Vaginal discharge - ICD9: 623.5, ICD10: N89.8 - RADU/TRICHOMONAS NAAT - BACTERIAL VAGINOSIS NAAT - GONORRHEA/CHLAMYDIA NAAT - Follow-up with your PCP in 3-5 days if symptoms have not improved or sooner if symptoms worsen - Discussed red flags and need for immediate medical evaluation if any occur. - Discussed supportive care treatment with fluids, rest and analgesia. - Discussed expected course of illness Carla Way APRN.ASBESTOS REMOVER documented in this encounterMer[facility]03-[facility]-2024 History of Present illness Narrative* Carla Way APRN.ASBESTOS REMOVER - 06/28/2023 2:37 PM EST Subjective HPI Gabrielle Cooper is a 28 year old female who presents with 3 days of urinary frequency, some abdominal cramping and bloating. She denies fever, chills. States urine feels hot when she urinates. Has had some vaginal discharge and odor. Denies concern for STD- has had same sexual partner for 8 years. LMP was 2 weeks ago; is on oral contraceptive pill. Review of Systems Constitutional: Negative for chills and fever. Respiratory: Negative. Cardiovascular: Negative. Gastrointestinal: Positive for abdominal pain (cramping). Genitourinary: Positive for frequency. See HPI Skin: Negative for itching and rash. BP 112/66 Pulse 94 Temp 36.8 C (98.2 F) Resp 16 Wt 130 kg (286 lb 9.6 oz) LMP 12/08/2021 (Approximate) SpO2 99% BMI 44.46 kg/m PAST MEDICAL HISTORY Diagnosis Date Hypothyroidism PCOS (polycystic ovarian syndrome) Pre-diabetes PAST SURGICAL HISTORY Procedure Laterality Date TONSILLECTOMY AND ADENOIDECTOMY HX ALLERGIES Clindamycin MEDICATIONS Norethindrone, Contraceptive, 0.35 mg tablet TAKE 1 TABLET BY MOUTH EVERY DAY. START DAY 1 OF MENSTRUAL CYCLE ibuprofen (MOTRIN) 600 mg tablet Take 1 tablet by mouth every 6 hours as needed for Pain. METFORMIN HCL (METFORMIN ORAL) Take by mouth. CALCIUM CARBONATE/VITAMIN D3 (VITAMIN D-3 ORAL) Take by mouth. LEVOTHYROXINE SODIUM (LEVOTHYROXINE ORAL) Take by mouth. guaiFENesin (MUCINEX) 600 mg 12 hr tablet Take 2 tablets by mouth twice daily. (Patient not taking:Reported on 06/28/2023) FAMILY HISTORY Problem Relation Age of Onset Diabetes Mother Social History Tobacco Use Smoking status: Every Day Packs/day: .5 Types: Cigarettes Start date: 04/21/2012 Smokeless tobacco: Never Substance Use Topics Alcohol use: No Drug use: No Objective Physical Exam Vitals and nursing note reviewed. Exam conducted with a hide washer present. Constitutional: General: She is not in acute distress. Appearance: Normal appearance. She is not ill-appearing. Cardiovascular: Rate and Rhythm: Normal rate. Pulmonary: Effort: Pulmonary effort is normal. Genitourinary: General: Normal vulva. Exam position: Lithotomy position. Pubic Area: No rash. Labia: Right: No rash, tenderness or lesion. Left: No rash, tenderness or lesion. Vagina: Normal. No vaginal discharge, erythema, tenderness or lesions. Cervix: Normal. No discharge, friability, lesion or erythema. Skin: General: Skin is warm and dry. Findings: No erythema or rash. Neurological: Mental Status: She is alert. ASSESSMENT/PLAN: 1. Urinary frequency - ICD9: 788.41, ICD10: R35.0 (primary diagnosis) acute - UA normal in office today - Send urine for culture - UA DIP, URINE (POC) - URINE CULTURE 2. Vaginal discharge - ICD9: 623.5, ICD10: N89.8 - RADU/TRICHOMONAS NAAT - BACTERIAL VAGINOSIS NAAT - GONORRHEA/CHLAMYDIA NAAT - Follow-up with your PCP in 3-5 days if symptoms have not improved or sooner if symptoms worsen - Discussed red flags and need for immediate medical evaluation if any occur. - Discussed supportive care treatment with fluids, rest and analgesia. - Discussed expected course of illness Carla Way APRN.ASBESTOS REMOVER documented in this encounterMer[facility]07-22-2022 Instructions* Patient Instructions* Trey Sumner MD - 11/09/2021 1:21 PM EDT Drowsy Driving Tips These suggestions will help prevent you from the risk of drowsy driving. 1. If you feel tired or drowsy do not drive. Sleepiness is a major cause of motor vehicle accidentsand accounts for 40% of all fatal crashes reported on the [facility]. No matter how much you think you can control sleepiness, you can't. 2. Ensure you follow your doctor's advice about the treatment for your sleep disorder. For example,if you have sleep apnea and use CPAP, ensure you use it fully the night before your trip. 3. Get a good night's sleep before driving. Do not reduce your sleep time if you plan a long drive the next day. Get to bed early and do not stay up late packing. 4. Avoid alcohol both the night before your trip and the during your trip. Alcohol will disrupt sleep and make you more tired the next day. Sleepiness and alcohol are additive in increasing impairment of your driving ability. 5. Avoid any sedative medications, including sedative antihistamines that are often contained in cold or allergy medications, the night before you drive as they may have long lasting effects the nextday. 6. Travel during non-sleeping hours. Accidents due to sleepiness are more common during the nighttime hours. 7. If sleepy, stop and rest. Drink coffee, walk around or have a brief nap in your car if you are sleepy. Have a 10-15 minute break after every [address] 8[address] with a paid internship. Share the driving. Relax in the back seat until it is your time to sharethe driving again. YOU CAN FIND MORE INFORMATION BY VISITING OUR WEBPAGE: [email or web address] documented in this encounterPomerene Hospital07-22-2022 History of Present illness Narrative* Mercy Bruce - 11/09/2021 1:00 PM EDT I contacted patient on 11/08/2021 11:26 AM. Answers were put into visit during pre-charting. Will the patient be in the [facility] at the time of the telehealth visit? Yes if no, notify your guest service manager & clinical guest service manager of potential issue Confirm mode for the visit (MyChart, 3rd Republican or telephone call): 3rd Republican If MyChart confirm patients knows to login 15 min in advance. If 3rd green party confirm how she wants jon contacted and put in visit notes. Yes I entered/confirmed pharmacy and updated on chart. Yes I reviewed allergies and marked reviewed on chart: Yes I reviewed tobacco use and updated on chart: Yes I reviewed medications and asked patient to have them available at time of visit. Additional medications not in med list added to list. Medications patient no longer taking removed from list. Yes Any refills needed (if yes, please queue up)? No I asked for any home vitals listed in the visit notes such as weight, blood pressure, etc and entered them into vitals. If patient is on Oxygen I documented their most recent oxygen level in the [id number].Yes Informed patient that if they do not receive link for their video visit within 15 minutes of scheduled appointment time, to contact that office directly to see if clinic is running late? Yes Sleep Patients Only I completed the flowsheets for the [place] Sleepines Scale and FOSQ. Yes * Trey Sumner MD - 11/09/2021 1:00 PM EDT I have had the pleasure of seeing Ms. Gabrielle Cooper [facility]. Impression: 1. Snoring, Sleepiness, likely due to obstructive sleep apnea. She has several risk factors for sleep disordered breathing given the history and physical examination findings. I had a long discussionwith the patient about the nature of the condition and treatment options. We will make arrangementsfor a portable in-home sleep study. Had a prior PSG but sleep time limited due to #2 2. 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 PCOS 4. No evidence of parasomnia: the sleep history was thoroughly reviewed. No indication of any unusual behavior during sleep that requires intervention. 5. No evidence of restless legs. 6. Sleep hours: adequate 7. Driving Issues: none Plan: 1. Portable in-home sleep study. Hopefully sleep will be better- to be done at [facility]. 2. We discussed treatment options and she is willing to consider CPAP treatment. If the study is positive for obstructive sleep apnea, we will therefore proceed with CPAP therapy. 3. Melatonin 3mg 2 hours prior to desired bedtime; bright light exposure x 30mins first thing when she wakes up. 4. She should never drive if drowsy and should dry chain puller at a safe place if she becomes drowsy while driving. A handout on drowsy driving tips was given to the patient. 5. Discussed importance of weight loss to sleep apnea treatment. 6. Follow up in clinic 3 months. At that time we will discuss her study results and tolerance of therapy if indicated. HPI: Chief complaint: suspected SAMIA. Previous sleep study: Yes PSG [facility] 08/07/2021 No sleep apnea. 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 She awakens at 1300 on weekdays and 1300 on weekends. She estimates a total sleep time of 7 hours each night. She falls asleep in 60 minutes,and awakens 0 times per night. Naps: No ( [ ] per week for [ ] min). Abnormal work hours (outside 6am-7 pm): No. Sleep disordered breathing symptoms (last month) Loud Snoring Rarely (less than once a week) Snorting or gasping Never Breathing stops, chokes, or struggles Never Sleepiness and fatigue frequency (last month) Tired upon awakening 5-7 times a week Very sleepy during the day 5-7 times a week Involuntarialy falling asleep Never Tired or Fatigued 5-7 times a week Fallen asleep driving Never Insomnia severity (last month). Currently having any of the following: No Difficulty falling asleep Difficulty staying asleep Problems waking up too early Abnormal behaviors frequency (last month) Problems disturb bed partner s sleep Never Unusual behaviors during sleep Never Kicking while asleep Never Acting out dreams 1-2 times a week Violent behaviors while asleep Never Hypnagogic hallucinations Rarely (less than once a week) Sleep paralysis Never Cataplexy (ever experienced) No Restless Leg Symptoms (Ever had these symptoms) Unpleasant sensations in legs and urge to move No Feelings in your legs occur mainly or only at rest Feelings in your legs improve with movement Feelings worse in the evening or night than in the morning Past Medical History: Diagnosis Date Diabetes mellitus Hypothyroidism PCOS Past Surgical History: Procedure Laterality Date TONSILLECTOMY 2011 Allergies Allergen Reactions Clindamycin Rash Current Outpatient Medications Medication Instructions ferrous sulfate 325 mg, Oral, DAILY levothyroxine (SYNTHROID) 75 mcg, DAILY metFORMIN (GLUCOPHAGE) 500 mg, Oral, DAILY norethindrone 0.35 MG tablet TAKE 1 TABLET BY MOUTH EVERY DAY. START DAY 1 OF MENSTRUAL CYCLE spironolactone (ALDACTONE) 50 mg, Oral, DAILY vitamin D3 50,000 Units, Oral, Taking 73886 units weekly Social History Tobacco Use Smoking status: Current Every Day Smoker Packs/day: 1.00 Start date: 2014 Smokeless tobacco: Never Used Substance Use Topics Alcohol use: Never Caffeine intake is [ 630 ] drinks per day, up until [ 30 ] hours before bed. Family History Problem Relation Age of Onset Diabetes Mother Known family history of sleep disorders: None Review of Systems Weight has had [ lbs gained], [ lbs lost] in the last year. Patient reported positive symptoms in the past month include: Heartburn, Trouble concentrating, Memory problems, Depression, Anxiety All other systems are negative. Physical Exam Ht 1.702 m (5' 7) Wt 129.3 kg (285 lb) BMI 44.64 kg/m Smoking Status Current Every Day Smoker Body mass index is 44.64 kg/m . Laboratory and others: Previous medical records from [facility] were reviewed. Serum Chemistry:No results found for: SODIUM, POTASSIUM, CHLORIDE, CO2, BUN, CREATSERUM, GLUCOSE HBA1c: No results found for: HGBA1C Thyroid function tests:No results found for: TSH, [id number], TMY98DQW, TSHBASELINE, TSHULTRASEN, TSHRFT4 Lipid profile: No results found for: CHOLESTEROL, TRIG, HDL, LDLCALC No results found for: FERRITIN ECHO: No results found for this or any previous visit. Diagnostic Review: ESS 1 FOSQ 16.5 HARPREET IRLS MVAP 0.485 This telehealth visit is a real time audio/visual communication. During the scheduling process, this patient has verbally consented to the submission of Telehealth visits and the patient is aware of the risks, benefits, and possible coinsurance/copay costs. This visit is being conducted by real time video due to the current COVID19 pandemic and efforts to reduce in-clinic visits, where possible, to reduce the overall risk of the spread of the illness. Time to complete visit: Provider location: [place] ACTIVITY TIME Direct synchronous communication with the patient by video or telephone 20minutes Other patient care activities related to this service including chart/data review, coordination of care, and/or preparation of documentation. 5 minutes Total time spent on this service. 25 minutes documented in this encounterOSU [facility] History of Present illness Narrative* Med Hdz RT(R) - 10/24/2020 6:40 PM EDT Radiology Service Progress Note PATIENT NAME: Gabrielle Cooper DATE OF SERVICE: October 24, 2020 TIME: 6:39 PM PATIENT IDENTITY VERIFICATION COMPLETED USING TWO (2) IDENTIFIERS: Name and Date of confirmedby patient verbally. FALL SCREENING: Has the patient had 2 falls in the last year or 1 fall with injury or currently using an Ambulatory Assistive Device (Walker, Cane, Wheelchair, Crutches, etc.)? No PATIENT GENDER DATA: Female. status: : No status: NO. PATIENT RELEVANT IMPLANT DATA REVIEWED: Not Applicable RADIOLOGY DEPARTMENT: General X-ray: Exam(s) Completed: Chest X-Ray PERIPHERAL IV DATA: Not applicable SIGNED BY: RT Bela(R) October 24, 2020 6:39 PM documented in this encounterBrandamore ClinicEvaluation noteNo assessment information availableWMercy Health St[facility] Work Phone: Evaluation note* Diagnosis Hypersomnia- Primary Hypersomnia, unspecified Morbid obesity with BMI of 40.0-44.9, adult documented in this encounter [facility]* Diagnosis Onset Date Resolution Status VINEET I (cervical intraepithelial neoplasia I) acute Obesity acute Tobacco use acute Menorrhagia with irregular cycle chronic Encounter for routine gynecological examination noneactive [facility] Work Phone: Evaluation note* Diagnosis Urinary frequency- Primary Vaginal discharge Leukorrhea, not specified as infective documented in this encounter [facility]* Diagnosis Toothache- Primary Unspecified disorder of the teeth and supporting structures documented in this encounter [facility]* Diagnosis Elevated blood pressure reading without diagnosis of hypertension- Primary documented in this encounter [facility]* Diagnosis Dental infection- Primary Acute apical periodontitis of pulpal origin documented in this encounter [facility]* Diagnosis URI with cough and congestion- Primary documented in this encounter [facility]* Diagnosis Acute bronchitis, unspecified organism- Primary [facility] Additional Instructions The radiologist felt you are developing pneumonia in your lower lung field and secondary to this take the doxycycline/antibiotic as directed. Continue all the other medications prescribed by the urgent care but please stop using the prednisone as I feel your anxiety and palpitations are related to this. Return to ER should you have any further concernsWMercy Health St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) Reason for Visit VINEET I (cervical intr aepithelial neoplasia I) Obesity Tobacco use Menorrhagia with irregular cycle Encounter for routine gynecological examination Chief Complaint RACING HEART Chief Complaint Admit Date PE NON DOT DRUG SCREEN/ DOMETIC March 22, 2024 10:31am EPIGASTRIC PAIN April 12, 2024 12:38pm 3 M FU May 07, 2024 1 0:30am EST NEW PT - WC PT June 30, 2024 3:3 0pm Reason for Visit Admit Date Constipation May 07, 2024 1 0:30am Epigastric pain May 07, 2024 1 0:30am Dermatitis June 30, 2024 3:3 0pm Hypersomnolence June 30, 2024 3:3 0pm Hypertension June 30, 2024 3:3 0pm Hypothyroidism June 30, 2024 3:3 0pm Iron deficiency June 30, 2024 3:3 0pm PCOS (polycystic ovarian syndrome) June 30, 2024 3:30pm Chief Complaint Admit Date EPIGASTRIC PAIN April 12, 2024 12:38pm 3 M FU May 07, 2024 1 0:30am EST NEW PT - WC PT June 30, 2024 3:3 0pm RIGHT OVARIAN CYST July 21, 2024 12:2 6pm Chief Complaint Admit Date 3 M FU May 07, 2024 1 0:30am EST NEW PT - WC PT June 30, 2024 3:3 0pm RIGHT OVARIAN CYST July 21, 2024 12:2 6pm COLD August 11, 2024 5:5 1pm Chief Complaint Admit Date EST NEW PT - WC PT June 30, 2024 3:3 0pm RIGHT OVARIAN CYST July 21, 2024 12:2 6pm COLD August 11, 2024 5:5 1pm 3 M FU October 06, 2024 1:29 pm Reason for Visit Admit Date Dermatitis June 30, 2024 3:3 0pm Hypersomnolence June 30, 2024 3:3 0pm Hypertension June 30, 2024 3:3 0pm Hypothyroidism June 30, 2024 3:3 0pm Iron deficiency June 30, 2024 3:3 0pm PCOS (polycystic ovarian syndrome) June 30, 2024 3:30pm Chief Complaint Admit Date 3 M FU October 06, 2024 1:29 pm ABDOMINAL PAIN DIARRHEA December 16 9:31am Reason for Visit Admit Date Axillary lump October 06, 2024 1:29 pm Hypersomnolence October 06, 2024 1:29 pm Hypertension October 06, 2024 1:29 pm Loose stools December 16, 2024 9: 31am Family History Relationship Condition Age at Onset Recorded Date/T carol grandfather Cardiac disease Unknown mother Diabetes mellitus Unknown grandmother Diabetes mellitus Unknown Advance Directives Advance Directive Response Recorded Date/ Time Living Will No January 30 6:45pm Power of Home Theater Experience Expert No January 30, 2021 6:45pm Advance Directive Response Recorded Date/ Time Living Will No November 30 5:41pm Power of Home Theater Experience Expert No November 30 5:41pm Advance Directive Response Recorded Date/ Time Living Will No December 29, 2021 3:24pm Power of Home Theater Experience Expert No December 3:24pm Advance Directive Response Recorded Date/ Time Living Will No December 29, 2021 2:24pm Power of Home Theater Experience Expert No December 2:24pm Advance Directive Response Recorded Date/ Time Living Will No July 24, 2023 10:40pm Power of Home Theater Experience Expert No July 23 10:40pm Advance Directive Response Recorded Date/ Time Living Will No December 28 10:25pm Do you have a Healthcare Power of Home Theater Experience Expert? No December 29, 2023 10:25pm Advance Directive Response Recorded Date/ Time Living Will No December 28 10:25pm Do you have a Healthcare Power of Home Theater Experience Expert? No December 29, 2023 10:25pm Do you have a Healthcare Power of Home Theater Experience Expert? No August 11, 2024 8:18pm Advance Directive Response Recorded Date/ Time Do you have a Healthcare Power of Home Theater Experience Expert? No August 11, 2024 8:18pm Summary Purpose Additional Source Comments Goals (unrecognized section and content) Goals may be documented in a n alternate sectionGoals may be documented in an alternate sectionGoals may be documented in an alternate sectionGoals may be documented in an alternate sectionGoals may be documented in an alternate sectionGoals may be documented in an alternate sectionGoals may be documented in an alternate sectionGoals may be documented in an alternate sectionGoals may be documented in an alternate sectionGoals may be documented in an alternate sectionGoals may be documented in an alternate section Reason for Visit (unrecogniz ed section and content) Reason Comments Establish Care Hypersomnia / go ove r sleep study per patient Specialty Diagnoses / Procedures Referred By Astrid augustine Referred To Contact Sleep Medicine Diagnoses Hypersomnia Raay Serrano CNP [address] [place] [address] [facility] [address] [place] [address] Referral ID Status Reason Start Date Expiration Date V isits Requested Visits Authorized [id number] New Request 10/31/2021 11/25/2022 1 1 Reason Comments Urinary Frequency pelvic cramping and bloating, vaginal discharge x 3 days Reason Comments Dental Problem Possible tooth infec tion lower left side x 1 week Reason Comments Warm feeling with hot flashes with brain fog & tachycardia Reason Comments Dental Problem right bottom tooth p ain x 4 days Reason Comments Cough Cough and wheezing x 3 days Reason Comments Hives Started after using inhaler Chest Congestion Cough INFORMATION SOURCE (unrecogn ized section and content) DATE CREATED AUTHOR 12/27/2021 [facility] DATE CREATED AUTHOR AUTHOR'S ORGANIZ ATION 12/26/2023 [facility] DATE CREATED AUTHOR AUTHOR'S ORGANIZ ATION 08/23/2024 [facility] DATE CREATED AUTHOR AUTHOR'S ORGANIZ ATION 12/12/2024 [facility] Care Teams (unrecognized sec tion and content) Team Status: Active Member Role Status Dates [facility] Family Provider Active [facility] Primary Care Provider A ctive Team Status: Inactive Member Role Status Dates Raya Serrano , COAGULATING DRYING SUPERVISOR-C Primary Care Provider, Referring P lionel Active Diane Vasquez COAGULATING DRYING SUPERVISOR, COAGULATING DRYING SUPERVISOR-C Attending Provider Active Team Status: Inactive Member Role Status Dates [facility] Primary Care Provider A ctive Blanka Cerna COAGULATING DRYING SUPERVISOR, COAGULATING DRYING SUPERVISOR-C Attending Provider Active Matcher Operator Relationship Specialty Start Date End Date Gage Logan PCP - General Family Medicine 10/07/18 Team Status: Inactive Member Role Status Dates [facility] Primary Care Provider A ctive Dr. Sam Esquivel , DO Emergency Provider Active Matcher Operator Relationship Specialty Start Date End Date Gage Logan PCP - General Family Medicine 10/07/18 Matcher Operator Relationship Specialty Start Date End Date Gage Logan CNP PCP - General Family Medicine 10/07/18 Matcher Operator Relationship Specialty Start Date End Date NehemiahBlankaGLENN [address] [place] [address] PCP - General Family Medicine 02/06/24 Matcher Operator Relationship Specialty Start Date End Date Blanka CernaGLENN [address] [place] [address] PCP - General Family Medicine 02/06/24 Team Status: Active Member Role Status Dates Dr. Lenore Meier MD Primary Care Provider Active Team Status: Inactive Member Role Status Dates Blanka Cerna VSC, COAGULATING DRYING SUPERVISOR-C Primary Care Provider Activ e Start: March 22, 2024 End: March 22, 2024 Blanka SIMMONS, COAGULATING DRYING SUPERVISOR-C Referring Provider Active Start: March 22, 2024 End: March 22, 2024 Agapito PRABHAKAR PA Attending Provider Active Start: March 22, 2024 End: March 22, 2024 Team Status: Inactive Member Role Status Dates Blanka Nehemiah VSC, COAGULATING DRYING SUPERVISOR-C Primary Care Provider Activ e Start: April 12, 2024 End: April 12, 2024 AKI Seaman Attending Provider Active Start: April 12, 2024 End: April 12, 2024 AKI Seaman Referring Provider Active Start: April 12, 2024 End: April 12, 2024 Team Status: Inactive Member Role Status Dates Blanka LEONARDC, COAGULATING DRYING SUPERVISOR-C Primary Care Provider Activ e Start: May 06, 2024 End: May 06, 2024 Kathy LEONARDC, COAGULATING DRYING SUPERVISOR-C Attending Provider Active Start: May 06, 2024 End: May 06, 2024 Team Status: Inactive Member Role Status Dates Blanka LEONARDC, COAGULATING DRYING SUPERVISOR-C Primary Care Provider Activ e Start: May 07, 2024 End: May 07, 2024 Blanka SIMMONS, COAGULATING DRYING SUPERVISOR-C Referring Provider Active Start: May 07, 2024 End: May 07, 2024 AKI Seaman Attending Provider Active Start: May 07, 2024 End: May 07, 2024 Team Status: Inactive Member Role Status Dates Blanka LEONARDC, COAGULATING DRYING SUPERVISOR-C Primary Care Provider Activ e Start: June 30, 2024 End: June 30, 2024 Blanka SIMMONS, COAGULATING DRYING SUPERVISOR-C Referring Provider Active Start: June 30, 2024 End: June 30, 2024 Dr. Lenore Meier MD Attending Provider Active Start: June 30, 2024 End: June 30, 2024 Team Status: Inactive Member Role Status Dates Dr. Lenore Meier MD Primary Care Provider Active Start: June 30, 2024 End: June 30, 2024 Dr. Lenore Meier MD Attending Provider Active Start: June 30, 2024 End: June 30, 2024 Dr. Lenore Meier MD Referring Provider Active Start: June 30, 2024 End: June 30, 2024 Team Status: Inactive Member Role Status Dates Diane Vasquez COAGULATING DRYING SUPERVISOR, COAGULATING DRYING SUPERVISOR-C Attending Provider Active Start: July 21, 2024 End: July 21, 2024 Diane Vasquez COAGULATING DRYING SUPERVISOR, COAGULATING DRYING SUPERVISOR-C Referring Provider Active Start: July 21, 2024 End: July 21, 2024 Dr. Lenore Meier MD Primary Care Provider Active Start: July 21, 2024 End: July 21, 2024 Matcher Operator Relationship Specialty Start Date End Date Blanka Cerna NP [address] [place] [address] PCP - General Family Medicine 02/06/24 Team Status: Inactive Member Role Status Dates Dr. Lenore Meier MD Primary Care Provider Active Start: August 11, 2024 End: August 11, 2024 Dr. Nathen Jacobo DO Emergency Provider Activ e Start: August 11, 2024 End: August 11, 2024 Matcher Operator Relationship Specialty Start Date End Date Blanka Cerna NP [address] [place] [address] PCP - General Family Medicine 02/06/24 Team Status: Inactive Member Role Status Dates Dr. Lenore Meier MD Primary Care Provider Active Start: August 11, 2024 End: August 11, 2024 Dr. Nathen Jacobo DO Attending Provider Activ e Start: August 11, 2024 End: August 11, 2024 Dr. Nathen Jacobo DO Emergency Provider Activ e Start: August 11, 2024 End: August 11, 2024 Team Status: Inactive Member Role Status Dates Dr. Lenore Meier MD Primary Care Provider Active Start: October 06, 2024 End: October 06, 2024 Dr. Lenore Meier MD Attending Provider Active Start: October 06, 2024 End: October 06, 2024 Dr. Lenore Meier MD Referring Provider Active Start: October 06, 2024 End: October 06, 2024 Team Status: Active Member Role/Relationship Status Dates Dr. Lenore Meier MD Primary Care Provider Active Team Status: Inactive Member Role/Relationship Status Dates Dr. Lenore Meier MD Primary Care Provider Active Start: October 06, 2024 End: October 06, 2024 Dr. Lenore Meier MD Attending Provider Active Start: October 06, 2024 End: October 06, 2024 Dr. Lenore Meier MD Referring Provider Active Start: October 06, 2024 End: October 06, 2024 Team Status: Inactive Member Role/Relationship Status Dates Dr. Lenore Meier MD Primary Care Provider Active Start: December 16, 2024 End: December 16, 2024 Dr. Lenore Meier MD Referring Provider Active Start: December 16, 2024 End: December 16, 2024 AKI Seaman Attending Provider Active Start: December 16, 2024 End: December 16, 2024 Source Comments (unrecognize d section and content) In the event this informatio n is protected by the Federal Confidentiality of Alcohol and Drug Abuse Patient Records regulations: The Federal rules restrict any use of the information to criminally investigate or prosecute any alcohol or drug abuse patient.[facility] the event this information is protected by the Federal Confidentiality of Alcohol and Drug Abuse Patient Records regulations: The Federal rules restrict any use of the information to criminally investigate or prosecute any alcohol or drug abuse patient.[facility] the event this information is protected by the Federal Confidentiality of Alcohol and Drug Abuse Patient Records regulations: The Federal rules restrict any use of the information to criminally investigate or prosecute any alcohol or drug abuse patient.[facility] the event this information is protected by the Federal Confidentiality of Alcohol and Drug Abuse Patient Records regulations: The Federal rules restrict any use of the information to criminally investigate or prosecute any alcohol or drug abuse patient.[facility] the event this information is protected by the Federal Confidentiality of Alcohol and Drug Abuse Patient Records regulations: The Federal rules restrict any use of the information to criminally investigate or prosecute any alcohol or drug abuse patient.[facility] the event this information is protected by the Federal Confidentiality of Alcohol and Drug Abuse Patient Records regulations: The Federal rules restrict any use of the information to criminally investigate or prosecute any alcohol or drug abuse patient.[facility] the event this information is protected by the Federal Confidentiality of Alcohol and Drug Abuse Patient Records regulations: The Federal rules restrict any use of the information to criminally investigate or prosecute any alcohol or drug abuse patient.[facility] FOR RECORDS PERTAINING TO PATIENTS WHO ARE OR HAVE BEEN ENROLLED IN A CHEMICAL DEPENDENCY/SUBSTANCEABUSE PROGRAM, SOME INFORMATION MAY BE OMITTED. This clinical summary was aggregated from multiple sources. Caution should be exercised in using it in the provision of clinical care. This summary normalizes information from multiple sources, and as a consequence, information in this document may materially change the coding, format and clinical context of patient data. In addition, data may be omitted in some cases. CLINICAL DECISIONS SHOULD BE BASED ON THE PRIMARY CLINICAL RECORDS. [facility]. provides no warranty or guarantee of the accuracy or completeness of information in this document.
[2024-12-16] MEDS: 0.9% Normal Saline (1000mL) 1,000 ML 999 ML IV (20:38)
[2024-12-16 21:00] VITALS: BP 140/87; PULSE 72; RESP 19; TEMP 36.6; O2SAT 99
[2024-12-16 21:09] LABS: Mucous, Urine 0 SEEN /hpf (<or=2+)
[2024-12-16 21:15] LABS: Hematocrit 39.1 % (37-47); Hemoglobin 12.9 g/dL (12.0-15.0); Immature Granulocytes Count 0.080 X10^3/uL (0.0-0.0); Mean Corp Hgb Conc 33.0 g/dL (32-36); Mean Corpuscular Volume 88.9 fL (81-99); Mean Platelet Vol. 10.2 fl (6.2-12.0); NRBC Flagged by Analyzer 0 % (0-5); Platelet Count 391 K/mm3 (150-450); RBC Distribution Width CV 13.7 % (11.6-14.6); RBC Distribution Width SD 44.5 fl (35.1-43.9); Red Blood Count 4.40 M/mm3 (4.2-5.4); White Blood Count 18.3 K/mm3 (4.4-11.0)
[2024-12-16 21:21] LABS: Color, Urine Straw (Yellow); Glucose, Dipstick Normal (Normal); Ketone-Dipstick Negative (Negative); Leukocyte Esterase-Dipstick Negative /ul (Negative); Nitrite-Dipstick Negative (Negative); Occult Blood-Urine Negative /ul (Negative); Protein-Dipstick 15 mg/dl (Negative); Specific Gravity, Urine 1.015 (1.002-1.030); Urine Bilirubin Dipstick Negative (Negative)
[2024-12-16 21:23] LABS: Internal QC Validated? YES +Cl - CLEAR BKGD; Pregnancy, Serum, hCG Quali. NEGATIVE Negative; Record Kit Lot#, Serum Preg. 962302
[2024-12-16 21:26] LABS: AST(SGOT) 15 U/L (<=31); Alanine Aminotransfer ALT/SGPT 11 U/L (<=34); Albumin, Serum 4.4 g/dL (3.5-5.0); Alkaline Phosphatase 106 U/L (35-104); Anion Gap 14 (5-15); BUN 8 mg/dL (4-19); BUN/Creat Ratio 10.6 RATIO (10-20); Calcium,Total 9.2 mg/dL (7.6-11.0); Carbon Dioxide 22.7 mmol/L (21.0-32.0); Chloride 102 mmol/L (98-108); Estimated Creatinine Clearance 166.83 ml/min (50-250); Globulin 3.2 g/dL (2.2-4.2); Glucose 93 mg/dL (70-99); Lipase 25 U/L (13-75); Potassium 3.4 mmol/L (3.3-5.1)
[2024-12-16 21:31] VITALS: PULSE 97; RESP 18; O2SAT 100
--- NOTE | 2024-12-16 21:32 | CT_ITS ---
PROCEDURE: ABDOMEN/PELVIS W IV CONT ONLY 12/16/2024 REASON FOR EXAM: DIARRHEA TECHNIQUE: ABDOMEN/PELVIS W IV CONT ONLY Coronal and Sagittal reconstruction series were provided. CONTRAST: 100 cc of Isovue 370 intravenous contrast. One or more dose reduction techniques were used (e.g., Automated exposure control, adjustment of the mA and/or kV according to patient size, use of iterative reconstruction technique. RADIATION DOSE SUMMARY: CTDlvol: 35 mGy DLP: 1437 mGycm COMPARISON: CT abdomen and pelvis 10/07/2018 FINDINGS: Lung bases: Unremarkable. Liver: Normal size. No mass. Gallbladder: Unremarkable. No biliary ductal dilatation. Spleen: Normal size. Pancreas: Normal size without evidence of mass surrounding inflammation or ductal dilation. Adrenals: Unremarkable Kidneys: Normal renal sizes. No hydronephrosis. Bladder: Unremarkable. Reproductive Organs: Uterus unremarkable. Right adnexal cyst measures 4.2 x 5.2 x 4.0 cm. No pelvic masses. Bowel: Normal. No bowel obstruction. Appendix: Normal. Lymph nodes: Unremarkable. Vasculature: The abdominal aorta and IVC are normal. Peritoneum / Retroperitoneum: No free fluid or air. Bones: No acute fractures. CT/Abdomen/Pelvis W IV Cont ONLY IMPRESSION: 1. No acute findings in the abdomen or pelvis. 2. Right adnexal cyst measures 4.2 x 5.2 x 4.0 cm. Reading Location: [facility]
[2024-12-16 21:44] LABS: Red Blood Cells-Urine 0-5 SEEN /hpf (0-5); Squamous Epithelial Cells - UA 0-5 SEEN /hpf (5-10)
[2024-12-16 22:00] VITALS: BP 138/79; PULSE 78; RESP 21; TEMP 36.6; O2SAT 99
[2024-12-16 23:09] VITALS: BP 135/73; PULSE 68; RESP 20; TEMP 36.6; O2SAT 100
== END 2024-12-16 23:10 | disposition home or self-care (01) ==
PROVIDERS: Emergency Provider Emergency Medicine; PCP Internal Medicine; Visit Provider Emergency Medicine
DX: R10.13 Epigastric pain (principal); R19.7 Diarrhea, unspecified; F17.210 Nicotine dependence, cigarettes, uncomplicated; Z86.16 Personal history of COVID-19
CPT/HCPCS: 74177; 80053; 81001; 83690; 84703; 85025; 96360; 96361; 99282; Q9967

== ENCOUNTER → 2024-12-16 | Outpatient (CLI) | payer MEDICAID, SELFPAY ==
[2024-12-16 10:43] LABS: Hematocrit 38.5 % (37-47); Hemoglobin 12.8 g/dL (12.0-15.0); Immature Granulocytes Count 0.040 X10^3/uL (0.0-0.0); Mean Corp Hgb Conc 33.2 g/dL (32-36); Mean Corpuscular Volume 88.1 fL (81-99); Mean Platelet Vol. 9.9 fl (6.2-12.0); NRBC Flagged by Analyzer 0 % (0-5); Platelet Count 382 K/mm3 (150-450); RBC Distribution Width CV 13.8 % (11.6-14.6); RBC Distribution Width SD 44.5 fl (35.1-43.9); Red Blood Count 4.37 M/mm3 (4.2-5.4); White Blood Count 14.7 K/mm3 (4.4-11.0)
[2024-12-16 11:42] LABS: AST(SGOT) 13 U/L (<=31); Alanine Aminotransfer ALT/SGPT 10 U/L (<=34); Albumin, Serum 4.1 g/dL (3.5-5.0); Alkaline Phosphatase 96 U/L (35-104); Anion Gap 10 (5-15); BUN 8 mg/dL (4-19); BUN/Creat Ratio 12.0 RATIO (10-20); Calcium,Total 9.1 mg/dL (7.6-11.0); Carbon Dioxide 24.3 mmol/L (21.0-32.0); Chloride 106 mmol/L (98-108); Globulin 2.7 g/dL (2.2-4.2); Glucose 102 mg/dL (70-99); Potassium 3.7 mmol/L (3.3-5.1)
[2024-12-21 18:08] LABS: Calprotectin, Stool 282 ug/g (0-120)
== END | disposition home or self-care (01) ==
PROVIDERS: PCP Internal Medicine; Referring Provider Student in an Organized Health Care Education/Training Program; Visit Provider Student in an Organized Health Care Education/Training Program
DX: K58.9 Irritable bowel syndrome, unspecified (principal); R19.5 Other fecal abnormalities
CPT/HCPCS: 36415; 80053; 83993; 85025; 87177; 87209; 87329; 87493; 87506

== ENCOUNTER → 2025-02-14 | Outpatient (CLI) | payer BC, MEDICAID, SELFPAY ==
[2025-02-18 00:07] LABS: Calprotectin, Stool 36 ug/g (0-120)
== END | disposition home or self-care (01) ==
LOC: LABSPEC 13:57
PROVIDERS: PCP Internal Medicine; Referring Provider Student in an Organized Health Care Education/Training Program; Visit Provider Student in an Organized Health Care Education/Training Program
DX: R19.5 Other fecal abnormalities (principal)
CPT/HCPCS: 83993

== ENCOUNTER 2025-04-07 07:43 | Day surgery (SDC) | payer BC, MEDICAID, SELFPAY ==
--- NOTE | 2025-04-06 17:22 | PAT.ANE_ITS ---
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 When Was Last Pacemaker Check QUESTION #4 FULL TEXT: You/Your Family Experience fever (hyperthermia) with Anesthesia Last Oral Intake Last Oral intake: Last Oral Intake NPO since Meds taken in AM with sips of water? Meds patient instructed to take am of surgery PONV PONV - sociology research assistant: PONV - sociology research assistant Female Yes 04/06/25 10:44 HX of Motion Sickness No 04/06/25 10:44 HX of N/V After Surgery No 04/06/25 10:44 Non-Smoker No 04/06/25 10:44 Duration of Surgery greater No 04/06/25 10:44 than 60 minutes Number of Risk Factors 1 04/06/25 10:44 PONV Score Low Risk 04/06/25 10:44 Height & Weight Height & Weight: Anesthesia: Height & Weight Height 5 ft 7 in 01/06/25 13:20 Respiratory Assessment Respiratory Assessment - sociology research assistant: Respiratory Tract Infection Hx - sociology research assistant Hx Respiratory Tract Infection No 04/06/25 10:44 STOP Sleep Apnea STOP Sleep Apnea - sociology research assistant: STOP Sleep Apnea - sociology research assistant Hx Hypertension Yes: CONTROLLED WITH MED 04/06/25 10:44 Hx Sleep Apnea No 04/06/25 10:44 CPAP BIPAP Do you snore loudly (louder No 04/06/25 10:44 than talking or can be heard Do you often feel tired/ No 04/06/25 10:44 fatigued/ sleepy during daytime? Has anyone observed you stop No 04/06/25 10:44 breathing during sleep? STOP Results Negative 04/06/25 10:44 QUESTION #5 FULL TEXT : Do you snore loudly (louder than talking or can be heard through closed doors)? 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 Specify any problems Hx of Preganancy in last 3 No 04/06/25 10:44 Months Nurse Filling Out Transfusion VCHRISTIN 04/06/25 10:44 & Questions: Date: 04/06/25 04/06/25 10:44 Time: 10:45 04/06/25 10:44 Patient unable to answer at this time (ie. confused, unrespo /Reproduction History /Reproductive History - sociology research assistant: /Reproductive Hx- sociology research assistant Hx Now No 04/06/25 10:44 Gestational Age (in weeks): EDC: Hx Hx Para Hx Section SAB No 04/06/25 10:44 Does the father of the baby or his family experience fever w Father of the baby Malignant Hypertension history comment [facility] Medical History (Updated 04/06/25 @ 10:44 by Tosin Zepeda) Cardiology follow-up encounter Encounter for vitamin deficiency screening Elevated hemoglobin A1c Morbid obesity Flu vaccine need Axillary lump Hypertension Dermatitis Hypersomnolence Rash Thyroid disease Low iron Heartburn Gastric reflux Smoker Bradycardia Vitamin D deficiency Iron deficiency Fatigue COVID-19 Anxiety Depression Hypothyroidism Body mass index [BMI] 45.0-49.9, adult Obesity VINEET I (cervical intraepithelial neoplasia I) Abnormal Pap smear of cervix PCOS (polycystic ovarian syndrome) Home Medications ?Medication ?Instructions ?Recorded ?Last Taken ?Type cholecalciferol (vitamin D3) 1,250 50,000 unit PO QWEE K 05/30/17 Unknown History mcg (50,000 unit) capsule ferrous sulfate 325 mg (65 mg 325 mg PO DAILY 12/26/23 04/04/25 History iron) tablet norethindrone (contraceptive) 0.35 0.35 mg PO QDAY #84 tabs 03/02/24 03/02/24 Rx mg tablet (Jacquelin) amlodipine 5 mg tablet 5 mg PO QDAY #30 tabs Unknown Rx levothyroxine 75 mcg tablet 75 mcg PO DAILY #90 tabs 1 Unknown Rx omeprazole 40 mg capsule,delayed 40 mg PO QDAY #60 cap s 03/09/25 Unknown Rx release spironolactone 50 mg tablet 50 mg PO DAILY 04/06/25 Un known History Allergy/AdvReac Type Severity Reaction Status Date / Time amoxicillin Allergy Intermediate Rash Verified 04/06/25 10:39 clindamycin Allergy Rash Verified 04/06/25 10:39 Family History Grandfather Heart disease Mother Diabetes Grandmother Diabetes Surgical History (Updated 04/06/25 @ 10:44 by Tosin Zepeda) Hx of esophagogastroduodenoscopy History of tonsillectomy Social History adopted: No household members: family current occupational status: employed current occupation: [employer] Smoking Status: Current every day smoker tobacco type: cigarettes alcohol intake: never substance use type: does not use caffeine: Yes frequency: 3-4 times per week seatbelt use: always do you feel safe at home: Yes additional social history: single Audit: Pertinent Findings Pertinent Findings EKG Perinent findings: 01/28/2024. Sinus rhythm. Horizontal axis for age borderline. Consult pertinent findings: 01/28/2024. Dr. Shin. 1. Bradycardia-asymptomatic nocturnal bradycardia. Likely part of a normal heart rate cycle. No changes at this time. Aggressive risk factor modification. Recommendation Anesthesia Recommendation Anesthesia recommendation: OPTIMIZED for anesthesia
[2025-04-07] VITALS (8 sets, daily range): BP systolic 123–139; BP diastolic 65–83; PULSE 68–86; RESP 16–18; TEMP 36.2–36.3; O2SAT 97–100; BMI 44.7
--- OUTSIDE RECORDS SUMMARY | 2025-04-07 07:47 | XMS RPT_ITS | CCD ---
Author Organization [facility] Care Team Providers Care Board Attendant Name Role Phone Unavailable Primary Care Provider UnavailMARGI Olsen Attending Unavaila ble RAYA SERRANO Referring Unavailable GLENN Serrano-C Raya Primary Care Provider GLENN Serrano-C Raya Referring Provider Pedro VOICE TEACHER, VOICE TEACHER-C Diane Attending Provider Gage Logan Primary Care Provider Gage Logan Primary Care Provider PHILLIP BOYKIN Admitting Unavailable BLANKA CERNA VOICE TEACHER%C Referring Unavailab le TONYA CERNAICA VOICE TEACHER%C Consulting Unavailab le PHILLIP BOYKIN Attending Unavailable PHILLIP BOYKIN Primary Care Unavailable PROVIDER, UNKNOWN Consulting Unavailable Gage Logan CNP Primary Care Provider Nehemiah VOICE TEACHERShawnBlanka Primary Care Provider Nehemiah VOICE TEACHER-C, Blanka Primary Care Provider Nehemiah VOICE TEACHER-C, Blanka Referring Provider Agapito Perez Attending Provider Keren Newsome Attending Provider Keren Newsome Referring Provider Anitha VOICE TEACHER-CKathy Attending Provider Hardeep LLANOS, Dr. Grover Attending Provider [phone] Dr. Lenore Meier MD Primary Care Provider Hardeep LLANOS, Dr. Grover Referring Provider Nehemiah VOICE TEACHER-C, Blanka Primary Care Provider Nehemiah VOICE TEACHER-C, Blanka Referring Provider Pedro VOICE TEACHER-C, Diane Attending Provider Pedro VOICE TEACHER-C, Diane Referring Provider Nehemiah VOICE TEACHER-C, Blanka Primary Care Provider Keren Newsome Attending Provider Odalis SR, Dr. Sena Emergency Provider GAGE LOGAN Primary Care Unavailable NEHEMIAH, BLANKA Primary Care Unavailable DALIA GONZALES Attending Unavailable NEHEMIAH, BLANKA Primary Care Unavailable JAKE BERNABE Attending Unavailable NEHEMIAH, BLANKA Primary Care Unavailable NEHEMIAH, BLANKA Primary Care Unavailable Nehemiah VOICE TEACHER-C, Blanka Primary Care Provider Nehemiah VOICE TEACHER-C, Blanka Referring Provider Odalis SR, Dr. Sena Attending Provider Hardeep LLANOS, Dr. Grover Primary Care Provider Hardeep LLANOS, Dr. Grover Attending Provider [phone] Hardeep LLANOS, Dr. Grover Referring Provider [phone] Keren Newsome Attending Provider Keren Newsome Referring Provider Stef Jaimes MD Emergency Provider Stef Jaimes MD Attending Provider Hardeep LLANOS, Dr. Grover Primary Care Physician Dr. Lenore Meier MD Attending Physician Keren Newsome Attending Physician Stef Jaimes MD Attending Physician Stef Jaimes MD Emergency Department Physician [facility], Blanka Primary Care Unavailabl e Pedro VOICE TEACHER, Diane Referring Unavailable [place] VOICE TEACHER, Diane Attending Unavailable [facility], Blanka Referring Unavailabl e Nehemiah [facility], Blanka Primary Care Unavailabl e Kaleb Power Attending Unavailable Oleghe, Efewongbe Primary Care Unavailable Keren Shields Referring Unavailable Keren Shields Attending Unavailable Oleghe, Efewongbe Primary Care Unavailable Nathen Jacobo Attending Unavailabl e Oleghe, Efewongbe Primary Care Unavailable Stef Jaimes Attending Unavailable [facility], [facility] Primary Care [facility]availabl e [facility] Unavailable [place] VOICE TEACHER, Diane Referring Unavailable [place] VOICE TEACHER, Diane Attending Unavailable [facility], [facility] Primary Care Unavailabl e Nehemiah [facility], Blanka Primary Care Unavailabl e Pedro VOICE TEACHER, Diane Referring Unavailable [place] VOICE TEACHER, Diane Attending Unavailable [facility], Blanka Referring Unavailabl e Nehemiah [facility], Blanka Primary Care Unavailabl e Pedro VOICE TEACHER, Diane Attending Unavailable [facility], [place] Referring Unavailabl e Agapito Perez Attending Unavailable [facility], [place] Primary Care Unavailabl e Keren Shields Attending Unavailable Keren Shields Referring Unavailable [facility], [place] Primary Care Unavailabl e Oleghe, Efewongbe Primary Care Unavailable Oleghe, Efewongbe Referring Unavailable Oleghe, Efewongbe Attending Unavailable Oleghe, Efewongbe Referring Unavailable Oleghe, Efewongbe Attending Unavailable Oleghe, Efewongbe Primary Care Unavailable Oleghe, Efewongbe Primary Care Unavailable Oleghe, Efewongbe Referring Unavailable Oleghe, Efewongbe Attending Unavailable Oleghe, Efewongbe Referring Unavailable Keren Shields Attending Unavailable Oleghe, Efewongbe Primary Care Unavailable [facility], [place] Primary Care Unavailabl e Nehemiah VS, Blanka Referring Unavailabl e Keren Shields Attending Unavailable [facility], [place] Referring Unavailabl e Kaleb Power Attending Unavailable Kaleb Power Consulting Unavailable [facility] Unavailabl e Oleghe, Efewongbe Referring Unavailable Keren Shields Attending Unavailable [facility] Referring Unavailabl e Krishghe, Efewongbe Attending Unavailable Oleghe, Efewongbe Primary Care Unavailable Pedro VOICE TEACHER, Diane Referring Unavailable Diane Vasquez NP Attending Unavailable Keren Shields Referring Unavailable Keren Shields Attending Unavailable Hardeep, Efewongbe Primary Care Unavailable Allergies Allergy Classification Reported Allergen(s) Allergy Type Date of Onset Reaction(s) Facility (20 sources) Clindamycin; Translations: [CLINDAMYCIN] Drug Allergy 04-18-2016 [facility] (1 source) Clindamycin Drug Allergy [facility]ository (8 sources) Amoxicillin Drug Allergy 06-30-2024 [facility] (1 source) Amoxicillin Drug Allergy 01-06-2025 [facility] Repository (1 source) Clindamycin Drug Allergy 01-06-2025 [facility] Repository Medications Current Medications Medication Drug Class(es) Dates Sig (Normalized) Sig (Original) [id number] 200 actuat albuterol 0.09 mg/actuat metered dose inhaler (17 sources) beta2-Adrenergic Agonist Start: 08-09-2024 take 2 [...] 2017 12:22pm amLODIPine 5 mg oral tablet (5 sources) Dihydropyridine Calcium Channel Natividad Start: 10-06-2024 take 1 tablet by mouth once daily Amlodipine 5 mg tablet Active 5 mg PO daily 30 October 06, 2024 12:00am Complies with drug therapy amoxicillin 875 mg oral tablet (2 sources) [...] by mouth. cholecalciferol 1.25 mg oral capsule (20 sources) Vitamin D Start: 09-06-2021 Cholecalciferol (vitamin D3) 1.25 MG (12185 UT) capsule Take 50,000 Units by mouth. Taking 80262 units weekly 0 09/06/2021 Active Start: 05-30-2017 take 1 capsule by [facility] every week Cholecalciferol (Vitamin D3) 50,000 unit capsule Active 76589 U PO EVERY WEEK May 30, 2017 1:00am Complies with drug therapy ferrous sulfate 325 mg oral tablet (13 sources) Start: 12-26-2023 take 1 tablet by mouth once daily Ferrous Sulfate 325 mg (65 mg iron) tablet Active 325 mg PO DAILY December 26, 2023 12:00am Complies with drug therapy Start: 09-06-2021 take 1 tablet by osmin once daily ferrous sulfate 325 (65 Fe) MG tablet Take 325 mg by mouth daily. 0 09/06/2021 Active take 1 tablet by osmin once daily ferrous sulfate 325 mg (65 [...] Comment on above: Take 2 tablets by [facility] twice daily. ibuprofen 600 mg oral tablet (7 sources) Nonsteroidal Anti-inflammatory Drug Start: 02-28-2020 take 1 tablet by mouth every six hours as needed ibuprofen (MOTRIN) 600 mg tablet Take 1 tablet by mouth every 6 hours as needed for Pain. 20 tablet 02/28/2020 Active Comment on above: Take 1 tablet by [facility] every 6 hours as needed for Pain. omeprazole 40 mg delayed release oral capsule (20 sources) Proton Pump Inhibitor Start: 03-10-2024 take 1 capsule by mouth once daily Omeprazole 40 mg capsule,delayed release(DR/EC) Active 40 mg PO daily 60 3 March 10, 2024 1:00am Complies with drug therapy Start: 12-03-2017 End: 12-14-2019 take 1 capsule by mouth once daily Omeprazole 20 MG capsule Discontinued 20 mg PO DAILY 30 0 December 03, 2017 12:00am December 14, 2019 1:03pm potassium chloride 2.67 meq/ml oral solution (1 source) Start: 01-06-2025 take 20 mEq by mouth once daily Potassium Chloride 40 mEq/15 mL liquid Active 20 meq PO daily January 06, 2025 12:00am Complies with drug therapy predniSONE 20 mg oral tablet (16 sources) Start: 08-18-2024 End: 08-22-2024 take 2 tablets by mouth once daily predniSONE (DELTASONE) 20 mg tablet Indications: Acute bronchitis, unspecified organism Take 2 tablets by mouth once daily for 4 days. 8 tablet 08/18/2024 08/22/2024 Active Start: 03-19-2021 End: 03-24-2021 take 2 tablets by mouth once daily Prednisone 10 mg tablet Discontinued 20 mg PO DAILY 10 March 19, 2021 1:00am March 23, 2021 1:00am March 24, 2021 1:01am Start: 03-19-2021 End: 03-24-2021 take 20 mg by mouth once daily Prednisone Discontinued 20 MG PO DAILY 10 March 19, 2021 1:00am March 24, 2021 1:01am spironolactone 50 mg oral tablet (20 sources) Aldosterone Antagonist Start: 05-30-2017 End: 01-06-2025 take 1 tablet by mouth once daily in the morning Spironolactone 50 mg tablet Discontinued 50 mg PO EVERY MORNING May 30, 2017 1:00am January 06, 2025 2:20pm Completed/Discontinued Medications Medication Drug Class(es) Dates Sig (Normalized) Sig (Original) azelastine hydrochloride 0.137 mg/actuat metered dose nasal spray (8 sources) Histamine-1 Receptor Antagonist Start: 11-22-2023 End: 12-29-2023 Azelastine 137 mcg (0.1 %) spray,non-aerosol Discontinued 2 NMA INTRANASAL TWICE A DAY 30 0 November 22, 2023 12:00am December 29, 2023 10:27pm administer into each nostril cetirizine hydrochloride 10 mg oral tablet (8 sources) Histamine-1 Receptor Antagonist Start: 02-27-2024 End: [...] 2017 11:33am dexamethasone 6 mg oral tablet (8 sources) Corticosteroid Start: 11-22-2023 End: 12-26-2023 take 1 tablet by mouth once daily Dexamethasone 6 mg tablet Discontinued 6 mg PO DAILY 10 10 0 November 22, 2023 12:00am December 26, 2023 12:53pm docusate sodium 100 mg oral capsule (8 sources) Start: 05-07-2024 End: 12-16-2024 take 1 capsule by mouth once daily Docusate Sodium 100 mg capsule Discontinued 100 mg PO daily 60 2 May 07, 2024 1:00am December 16, 2024 9:34am doxycycline hyclate 100 mg oral capsule (9 sources) Tetracycline-class Drug Start: 07-24-2023 End: 12-26-2023 take 1 capsule by mouth twice daily Doxycycline Hyclate 100 mg capsule Discontinued 100 mg PO TWICE A DAY 20 10 0 July 24, 2023 12:00am December 26, 2023 12:53pm ergocalciferol 1.25 mg oral capsule (15 sources) Provitamin D2 Compound Start: 11-10-2016 End: 05-30-2017 Ergocalciferol (Vitamin D2) 50,000 UNIT capsule Discontinued 19490 U PO Q7D November 10, 2016 12:00am May 30, 2017 12:23pm esomeprazole 20 mg delayed release oral capsule (11 sources) Proton Pump Inhibitor Start: 12-29-2021 End: [...] mg-mcg tablet Discontinued 1 {tbl} PO daily December 14, 2020 2:00pm December [...] mg-mcg tablet Discontinued 1 {tbl} PO daily December 14, 2019 1:10pm December 14, 2020 2:00pm Start: 12-14-2019 End: 12-14-2020 take 1 tablet by mouth once daily Norgestimate-Ethinyl Estradiol (Sprintec (28)) 0.25-35 mg-mcg tablet Discontinued 1 TABLET PO daily December 14, 2019 12:10pm December 14, 2020 1:00pm Start: 12-14-2019 End: 12-14-2020 take 1 tablet by mouth once daily Norgestimate-Ethinyl Estradiol (Sprintec (28)) 0.25-35 mg-mcg tablet Discontinued 1 TABLET PO daily 84 December 14, 2019 1:10pm December 14, 2020 2:00pm Start: 11-30-2019 End: 12-14-2019 Norgestimate-Ethinyl Estradi ol (Sprintec (28)) 0.25-35 mg-mcg tablet Discontinued 1 {tbl} PO daily 84 0 November 30, 2019 1:20pm December 14, 2019 1:10pm Start: 11-30-2019 End: 12-14-2019 Norgestimate-Ethinyl Estradi ol (Sprintec (28)) 0.25-35 mg-mcg tablet Discontinued 1 {tbl} PO daily 84 November 30, 2019 1:20pm December 14, 2019 1:10pm Start: 11-30-2019 End: 12-14-2019 take 1 tablet by mouth once daily Norgestimate-Ethinyl Estradiol (Sprintec (28)) 0.25-35 mg-mcg tablet Discontinued 1 TABLET PO daily 84 November 30, 2019 12:20pm December 14, 2019 12:10pm Start: 11-30-2019 End: 12-14-2019 take 1 tablet by mouth once daily Norgestimate-Ethinyl Estradiol (Sprintec (28)) 0.25-35 mg-mcg tablet Discontinued 1 TABLET PO daily 84 November 30, 2019 1:20pm December 14, 2019 [...] tablet Discontinued 1 TABLET PO daily 84 August 13, 2018 3:25pm September 21, 2018 2:56pm Start: 08-13-2018 End: 09-21-2018 take 1 tablet by mouth once daily Norgestimate-Ethinyl Estradiol (Sprintec (28)) 0.25-35 mg-mcg tablet Discontinued 1 TABLET PO daily 84 August 13, 2018 4:25pm [...] 2018 3:32pm fluconazole 150 mg oral tablet (8 sources) Azole Antifungal Start: 12-29-2023 End: 01-14-2024 take 1 tablet by mouth once Fluconazole 150 mg tablet Discontinued 150 mg PO .once 1 0 December 29, 2023 12:00am January 14, 2024 2:59pm Inhalational Spacing Device (1 source) Start: 08-09-2024 End: 08-09-2024 Inhalational Spacing Device 1 device one time only for 1 dose. 1 each 08/09/2024 08/09/2024 levothyroxine sodium 0.075 mg oral tablet (20 sources) l-Thyroxine Start: 05-30-2017 End: 11-23-2024 take 1 tablet by mouth once daily Levothyroxine 75 mcg tablet Discontinued 75 ug PO DAILY 90 0 August 23, 2024 7:11am November 23, 2024 11:34am Start: 11-10-2016 End: 05-30-2017 take 1 tablet by mouth once daily Levothyroxine 50 MCG tablet Discontinued 50 ug PO DAILY November 10, 2016 12:00am May 30, 2017 12:24pm LEVOTHYROXINE SO DIUM (LEVOTHYROXINE ORAL) Take by mouth. Active LEVOTHYROXINE SO DIUM (LEVOTHYROXINE ORAL) Take by mouth. 0 Active Comment on above: Take by mouth. metFORMIN hydrochloride 500 mg oral tablet (20 [...] by mouth. naproxen 500 mg oral tablet (15 sources) Nonsteroidal Anti-inflammatory Drug Start: 10-09-19 End: [...] pantoprazole 40 mg delayed release oral tablet (20 sources) Proton Pump Inhibitor Start: 12-22-2023 End: 03-10-2024 take 1 tablet by mouth once daily Pantoprazole 40 mg tablet,delayed release (DR/EC) Discontinued 40 mg PO daily February 03, 2024 12:00am March 10, 2024 1:50pm triamcinolone acetonide 1 mg/ml topical cream (8 sources) Corticosteroid Start: 06-30-2024 End: 01-06-2025 Triamcinolone Acetonide 0.1 % cream Discontinued 1 NMA TOPICAL TWICE A DAY as needed for rash 453.6 2 June 30, 2024 12:00am January 06, 2025 1:21pm Problems Active Problems Problem Classification Problem Date Documented Da te Episodic/Chronic Acute bronchitis (2 sources) Acute bronchitis; Translations: [Acute bronchitis, unspecified] Onset: 5 08-18-2024 Episodic Allergic reactions (12 sources) Inflammatory dermatosis; Translations: [Dermatitis, unspecified] 06-30-2024 Episodic Anxiety disorders (16 sources) Anxiety; Translations: [Anxiety disorder, unspecified] 12-26-2023 Chronic Cardiac dysrhythmias (8 sources) Bradycardia; Translations: [Bradycardia, unspecified] 01-28-2024 Episodic Conditions associated with dizziness or vertigo (8 sources) Lightheadedness; Translations: [Dizziness and giddiness] 01-06-2024 Episodic Diabetes mellitus without complication (1 source) High hemoglobin A1c level; Translations: [Other abnormal glucose] 01-06-2025 Episodic Disorders of teeth and jaw (2 sources) Toothache; Translations: [Other specified disorders of teeth and supporting structures] 08-29-2023 Episodic Essential hypertension (20 sources) Elevated blood pressure; Translations: [Essential (primary) hypertension] Onset: 5 01-06-2024 Chronic Fluid and electrolyte disorders (8 sources) Metabolic acidosis, normal anion gap (NAG); Translations: [Normal anion gap metabolic acidosis] 01-06-2024 Episodic Gastrointestinal hemorrhage (8 sources) Acute upper gastrointestinal hemorrhage; Translations: [Gastrointestinal hemorrhage, unspecified] 12-30-2023 Episodic Genitourinary symptoms and ill-defined conditions (1 source) Increased frequency of urination; Translations: [Frequency of micturition] 06-28-2023 Episodic Immunizations and screening for infectious disease (8 sources) Patient encounter status; Translations: [Encounter for screening for COVID-19] 01-06-2025 Episodic Inflammatory diseases of female pelvic organs (9 sources) Hydrosalpinx; 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] Onset: 4 01-14-2024 Chronic Malaise and fatigue (8 sources) Fatigue; Translations: [Other fatigue] 12-26-2023 Episodic Menstrual disorders (20 sources) Menometrorrhagia; Translations: [Excessive and frequent menstruation with irregular cycle] Onset: 6 02-19-2022 Chronic Comment on above: managed with progest erone OCP Mood disorders (8 sources) Depressive disorder; Translations: [Depression] 12-26-2023 Chronic Mycoses (8 sources) Candidiasis of vagina; Translations: [Candidiasis of vagina] 01-06-2024 Episodic Nausea and vomiting (11 sources) Nausea, vomiting and diarrhea; Translations: [Nausea with vomiting, unspecified] 01-06-2022 Episodic Nutritional deficiencies (9 sources) Vitamin D deficiency; Translations: [Vitamin D deficiency, unspecified] 12-26-2023 Chronic Open wounds of extremities (15 sources) Laceration of left middle finger; Translations: [Laceration without foreign body of left middle finger without damage to nail, initial encounter] 02-07-2021 Episodic Other circulatory disease (15 sources) Elevated blood pressure; Translations: [Elevated blood-pressure reading, without diagnosis of hypertension] 12-14-2020 Episodic Comment on above: r/t combo OCP Other circulatory disease (1 source) Elevated blood-pressure reading without diagnosis of hypertension; Translations: [Elevated blood-pressure reading, without diagnosis of hypertension] 02-06-2024 Episodic Other endocrine disorders (12 sources) Polycystic ovary; Translations: [Polycystic ovarian syndrome] 06-30-2024 Chronic Other female genital disorders (15 sources) Cervical intraepithelial neoplasia grade 1; Translations: [Mild cervical dysplasia] 02-19-2022 Episodic Comment on above: colp 04/2017. Neg 10/20; 2019.2022 Other female genital disorders (1 source) Vaginal discharge; Translations: [Other specified noninflammatory disorders of vagina] 06-28-2023 Episodic Other gastrointestinal disorders (1 source) Irritable bowel syndrome without diarrhea; Translations: [Irritable bowel syndrome, unspecified] Onset: Chronic Other gastrointestinal disorders (11 sources) Constipation; Translations: [Constipation, unspecified] 05-07-2024 Episodic Other gastrointestinal disorders (9 sources) Loose stool; Translations: [Other fecal abnormalities] 12-16-2024 Episodic Other gastrointestinal disorders (3 sources) Diarrhea; Translations: [Diarrhea, unspecified] 12-16-2024 Episodic Other gastrointestinal disorders (3 sources) Liquid stool; Translations: [Other fecal abnormalities] 12-16-2024 Episodic Other gastrointestinal disorders (1 source) Diarrhea, unspecified; Translations: [Diarrhea, unspecified] Onset: Episodic Other gastrointestinal disorders (1 source) Other fecal abnormalities; Translations: [Other fecal abnormalities] Onset: 5 Episodic Other nutritional; endocrine; and metabolic disorders (15 sources) Obesity; Translations: [Obesity, unspecified] 12-14-2020 Chronic Other nutritional; endocrine; and metabolic disorders (10 sources) Body mass index 40+ - severely obese; Translations: [Morbid (severe) obesity due to excess calories] Chronic Other nutritional; endocrine; and metabolic disorders (1 source) Obesity, unspecified; Translations: [Obesity, unspecified] 02-19-2022 Chronic Other nutritional; endocrine; and metabolic disorders (1 source) Morbid obesity; Translations: [Morbid (severe) obesity due to excess calories] 01-06-2025 Chronic Other skin disorders (8 sources) Mass of axilla; Translations: [Localized swelling, mass and lump, unspecified upper limb] 10-06-2024 Episodic Other skin disorders (1 source) Localized swelling, mass and lump, unspecified upper limb; Translations: [Localized swelling, mass and lump, unspecified upper limb] Onset: 5 Episodic Other upper respiratory infections (7 sources) Upper respiratory infection; Translations: [Acute upper respiratory infection, unspecified] Onset: 5 08-09-2024 Episodic Pneumonia (except that caused by tuberculosis or sexually transmitted disease) (9 sources) Pneumonia; Translations: [Pneumonia, unspecified organism] 07-24-2023 Episodic Residual codes; unclassified (20 sources) Hypersomnia; Translations: [Hypersomnia, unspecified] Chronic Residual codes; unclassified (1 source) Hypersomnia, unspecified; Translations: [Hypersomnia, unspecified] Onset: 5 Chronic Residual codes; unclassified (16 sources) Tobacco use and exposure - finding; Translations: [Tobacco use] 02-19-2022 Episodic Comment on above: counseled: has decre ased. counseled Spondylosis; intervertebral disc disorders; other back problems (13 sources) Neck pain; Translations: [Cervicalgia] 12-08-2021 Episodic Thyroid disorders (20 sources) Acquired hypothyroidism; Translations: [Hypothyroidism, unspecified] Onset: 6 04-18-2016 Chronic Unclassified (4 sources) G47.10 - Hypersomnia, unspecified Unclassified (1 source) Cough, unspecified; Translations: [Cough, unspecified] Onset: Viral infection (8 sources) Disease caused by 2019-nCoV; Translations: [COVID-19] 03-02-2024 Episodic Past or Other Problems Problem Classification Problem Date Documented Da te Episodic/Chronic Abdominal pain (20 sources) Pain in pelvis; Translations: [Pelvic and perineal pain] Onset: 09-10-2024 03-02-2024 Episodic Nutritional deficiencies (13 sources) Iron deficiency; Translations: [Iron deficiency] Onset: 07-10-2024 06-30-2024 Episodic Other female genital disorders (2 sources) [...] malignant neoplasm of cervix] Onset: 03-09-2024 Episodic Ovarian cyst (11 sources) Cyst of ovary; Translations: [Unspecified ovarian cyst, right side] Onset: 06-14-2024 03-02-2024 Episodic Comment on above: 02/2024 4.1cm. 4.8cm. Chronic pain Residual codes; unclassified (2 sources) Tobacco use; Translations: [Tobacco use disorder] Onset: 03-02-2024 02-19-2022 Episodic Results Test Name Value Interpretation Reference Range Facility Calprotectin, Stoolon [address] 36 ug/g Normal 0-120 [facility] Comment on above: Result Comment: Conc entration Interpretation Follow-Up < 5 - 50 ug/g Normal None >50 -120 ug/g Borderline Re-evaluate in 4-6 weeks >120 ug/g Abnormal Repeat as clinically indicated Performed at: [address] [id number] Plane Captain: Velia Meléndez MD, Phone: [phone] Performed By: #### L [id number] #### [facility] [address] [place], [address] Internal Medicine Office Vis paco 01-06-2025 Internal Medicine Office Visit [facility] [address] [place] [address] [place] [address] OFFICE VISIT Date of Service: 01/06/25 MR#: [id number] Acct: [id number] Name: GABRIELLE COOPER Rep #: [id number] : 1995 Provider: Dr. Lenore chauhan MD Age/Sex: 29/F Location: [facility] Status: Signed Intake Vital Signs 10/06/24 13:38 12/16/24 19:32 01/06/25 13:20 Height 5 ft 7 in 5 ft 7 in 5 ft 7 in Weight: 286 lb BMI 44.8 BP 140/82 H Blood Pressure Location Lt brachial Position Sitting Respiration 18 Pulse 84 Pulse Source Monitor Temp 98.3 F Temp Source Temporal Pulse Oximetry (%) 97 Oxygen Delivery Method room air Comment pt reports that she did not take her amlodipine today Intake Visit Reasons: 3 M FU Chief Complaint: 3 M FU Is patient in pain?: No Allergies amoxicillin Allergy (Intermediate, Verified 01/06/25 13:20) Rash clindamycin Allergy (Verified 01/06/25 13:20) Rash Medications ???Medication ???Instructions ???Recorded ???Confirmed ???Type cholecalciferol (vitamin D3) 1,250 50,000 unit PO QWEEK 05/30/17 History mcg (50,000 unit) capsule ferrous sulfate 325 mg (65 mg 325 mg PO DAILY 12/26/23 01/06/25 History iron) tablet norethindrone (contraceptive) 0.35 0.35 mg PO QDAY #84 tabs 4 01/06/25 Rx mg tablet (Jacquelin) omeprazole 40 mg capsule,delayed 40 mg PO QDAY #60 caps 03/10/24 Rx release amlodipine 5 mg tablet 5 mg PO QDAY #30 tabs 10/06/24 Rx levothyroxine 75 mcg tablet 75 mcg PO DAILY #90 tabs 11/23/24 01/06/25 Rx potassium chloride 40 mEq/15 mL 20 meq PO QDAY 01/06/25 01/06/25 H istory oral liquid Have you fallen in the past year?: No [facility] Medical History (Updated 01/06/25 @ 15:[address] 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 History of hypertension. She has been managing hypertension with daily amlodipine, though she hasn't consistently checked her blood pressure at home. Started at her last visit. She did not concerning side effects on amlodipine. Blood pressure today at 140/82. History of tobacco use which continues. Smoked just before her visit today. She has made dietary modifications such as reducing soda intake and increasing water and home-cooked meals. She also expresses a desire to get her vitamin B12 levels checked, as a previous test indicated borderline levels. She continues vitamin D supplementation but has not been taking B12 supplements. She reports having experienced some stomach issues. 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 Attestation: Documentation on this patient encounter was [...] Eyes: No blurry vision, change in vision, vision loss, dry eyes, eye pain or Light sensitivity ENT ENT: No abnormal hearing, ear or mastoid pain, tinnitus, nasal congestion, headache(s), neck pain or sore throat Resp Respiratory: No cough, excessive phlegm production, hemoptysis, shortne (more content not included)... Normal [facility] M7400.3302on 12-26-2024 M7400.3302 __ TESTING PERFORMED AT [facility]. ORIGINAL REPORT ON FILE IN LAB CONTAINS ADDITIONAL TEST SITE INFORMATION. Giardia Lamblia EIA NEGATIVE [facility] Comment on above: Performed By: #### L 7000.0700, M600.5000, M100.637, M7400.3302, M100.6796 #### [facility] [address] [place], [address] Ova and Parasites 8623on OP OVA AND PARASITES EXAM, ROUTINE These results were obtained using wet preparation(s) and trichrome stained smear. This test does not include testing for Crytosporidium parvum, Cyclospora, or Microsporidia. One negative specimen does not rule out the possibility of a parasitic infection. TESTING PERFORMED AT [facility]. ORIGINAL REPORT ON FILE IN LAB CONTAINS ADDITIONAL TEST SITE INFORMATION. Ova/Parasite Exam NO OVA, CYSTS, OR PARASITES FOUND. Normal [facility] Comment on above: Performed By: #### L 7000.0700, M600.5000, M100.637, M7400.3302, M100.6796 #### [facility] [address] [place], [place], [id number] Calprotectin, Stoolon [address] 282 ug/g Abnormal 0-120 [facility] Comment on above: Result Comment: Conc entration Interpretation Follow-Up < 5 - 50 ug/g Normal None >50 -120 ug/g Borderline Re-evaluate in 4-6 weeks >120 ug/g Abnormal Repeat as clinically indicated Performed at: [address] [id number] Plane Captain: Velia Meléndez MD, Phone: [phone] Performed By: #### L 7000.0700, M600.5000, M100.637, M7400.3302, M100.6796 #### [facility] [address] [place], [place], [id number] Abdomen/Pelvis W IV Cont ONL Yon 12-16-2024 Abdomen/Pelvis W IV Cont ONLY [facility] Imaging Services [address] [place], [place] [id number] Abdomen/Pelvis W IV Cont ONLY MR#: [id number] Acct: [id number] Name: GABRIELLE COOPER Rep #: [id number] : 1995 F 29 From: Manuel Wilder MD PCP: Dr. Lenore Meier MD Status: REG ER Study: Abdomen/Pelvis W IV Cont ONLY Date of Exam: Exam# [id number] Ordering Dr: Stef Jaimes MD PROCEDURE: ABDOMEN/PELVIS W IV CONT ONLY 12/16/2024 REASON FOR EXAM: DIARRHEA TECHNIQUE: ABDOMEN/PELVIS W IV CONT ONLY Coronal and Sagittal reconstruction series were provided. CONTRAST: 100 cc of Isovue 370 intravenous contrast. One or more dose reduction techniques were used (e.g., Automated exposure control, adjustment of the mA and/or kV according to patient size, use of iterative reconstruction technique. RADIATION DOSE SUMMARY: CTDlvol: 35 mGy DLP: 1437 mGycm COMPARISON: CT abdomen and pelvis 10/07/2018 FINDINGS: Lung bases: Unremarkable. Liver: Normal size. No mass. Gallbladder: Unremarkable. No biliary ductal dilatation. Spleen: Normal size. Pancreas: Normal size without evidence of mass surrounding inflammation or ductal dilation. Adrenals: Unremarkable Kidneys: Normal renal sizes. No hydronephrosis. Bladder: Unremarkable. Reproductive Organs: Uterus unremarkable. Right adnexal cyst measures 4.2 x 5.2 x 4.0 cm. No pelvic masses. Bowel: Normal. No bowel obstruction. Appendix: Normal. Lymph nodes: Unremarkable. Vasculature: The abdominal aorta and IVC are normal. Peritoneum / Retroperitoneum: No free fluid or air. Bones: No acute fractures. CT/Abdomen/Pelvis W IV Cont ONLY IMPRESSION: 1. No acute findings in the abdomen or pelvis. 2. Right adnexal cyst measures 4.2 x 5.2 x 4.0 cm. Reading Location: [facility] CC: Dr. Stef Jaimes MD; Dr. Lenore Meier MD [employer]eter: Signed Normal [facility] Absolute lymphocyte countOrd ered By: Stef Jaimes on 12-16-2024 Lymphocytes Auto (Unsp spec) [#/Vol] 4.95 10*3/uL High 0.83-4.51 [facility] Absolute lymphocyte countOrd ered By: Keren Shields on 12-16-2024 Lymphocytes Auto (Unsp spec) [#/Vol] 4.38 10*3/uL 0.83-4.51 [facility] Absolute neutrophil countOrd ered By: Stef Jaimes on 12-16-2024 Neutrophils (Bld) [#/Vol] 11.0 10*3/uL High 2.0-7.7 [facility] Absolute neutrophil countOrd ered By: Keren Shields on 12-16-2024 Neutrophils (Bld) [#/Vol] 8.0 10*3/uL High 2.0-7.7 [facility] Anion gap in Serum or Plasma Ordered By: Stef Jaimes on 12-16-2024 Anion gap [Moles/Vol] 14 mmol/L 09-02 [facility] Anion gap in Serum or Plasma Ordered By: Keren Shields on 12-16-2024 Anion gap [Moles/Vol] 10 mmol/L 09-02 [facility] Automated lymphocyte count a s percentage of total leukocytesOrdered By: Stef Jaimes on 12-16-2024 Lymphocytes/100 WBC Auto (Unsp spec) 27.1 % [facility] Automated lymphocyte count a s percentage of total leukocytesOrdered By: Keren Shields on 12-16-2024 Lymphocytes/100 WBC Auto (Unsp spec) 29.8 % [facility] BUN/creatinine ratioOrdered By: Stef Jaimes on 12-16-2024 Urea nitrogen/Creatinine [Mass ratio] 10.6 mg/mg 02-07 [facility] BUN/creatinine ratioOrdered By: Keren Shields on 12-16-2024 Urea nitrogen/Creatinine [Mass ratio] 12.0 mg/mg 02-07 [facility] Basophil percentageOrdered B y: Stef Jaimes on 12-16-2024 Basophils/100 WBC (Bld) 0.7 % 0-1 [facility] Basophil percentageOrdered B y: Keren Shields on 12-16-2024 Basophils/100 WBC (Bld) 0.7 % 0-1 [facility] Bilirubin Test strip Ql (U)O rdered By: Stef Jaimes on 12-16-2024 Bilirubin Ql (U) Negative Negative [facility] Bilirubin, totalOrdered By: Stef Jaimes on 12-16-2024 Bilirubin [Mass/Vol] 0.19 mg/dL 0.00-1.30 [facility] Bilirubin, totalOrdered By: Keren Shields on 12-16-2024 Bilirubin [Mass/Vol] 0.29 mg/dL 0.00-1.30 [facility] CBC W/Diff, Automatedon 11-20 Absolute Lymph 4.95 X10 3/uL High 0.83-4.51 [facility] Comment on above: Performed By: #### L 7000.0700, M600.5000, M100.637, M7400.3302, M100.6796 #### [facility] [address] [place], [address] Absolute Neut 11.0 X10 3/uL High 2.0-7.7 [facility] Comment on above: Performed By: #### L 7000.0700, M600.5000, M100.637, M7400.3302, M100.6796 #### [facility] [address] [place], [address] Basophils/100 WBC (Bld) 0.7 % Normal 0-1 [facility] Comment on above: Performed By: #### L 7000.0700, M600.5000, M100.637, M7400.3302, M100.6796 #### [facility] [address] [place], [address] Eosinophils/100 WBC (Bld) 6.7 % High 0-5 [facility] Comment on above: Performed By: #### L 7000.0700, M600.5000, M100.637, M7400.3302, M100.6796 #### [facility] [address] [place], [address] Erythrocyte distribution width (RBC) [Ratio] 13.7 % Normal 11.6-14.6 [facility] Comment on above: Performed By: #### L 7000.0700, M600.5000, M100.637, M7400.3302, M100.6796 #### [facility] [address] [place], [address] Hematocrit (Bld) [Volume fraction] 39.1 % Normal 37-47 [facility] Comment on above: Performed By: #### L 7000.0700, M600.5000, M100.637, M7400.3302, M100.6796 #### [facility] [address] [place], [address] Hemoglobin (Bld) [Mass/Vol] 12.9 g/dL Normal 12.0-15.0 [facility] Comment on above: Performed By: #### L 7000.0700, M600.5000, M100.637, M7400.3302, M100.6796 #### [facility] [address] [place], [address] IG% 0.400 Normal 0.0-0.9 [facility] Comment on above: Result Comment: IG% - Immature Granulocytes (promyelocytes, myelocytes and metamyelocytes) > 1% indicates that a LEFT SHIFT is Present. Performed By: #### L 7000.0700, M600.5000, M100.637, M7400.3302, M100.6796 #### [facility] [address] [place], [address] Lymphocytes/100 WBC (Bld) 27.1 % Normal 19-41 [facility] Comment on above: Performed By: #### L 7000.0700, M600.5000, M100.637, M7400.3302, M100.6796 #### [facility] [address] [place], [address] MCH (RBC) [Entitic mass] 29.3 pg Normal 27.0-32.0 [facility] Comment on above: Performed By: #### L 7000.0700, M600.5000, M100.637, M7400.3302, M100.6796 #### [facility] [address] [place], [address] MCHC (RBC) [Mass/Vol] 33.0 g/dL Normal 32-36 [facility] Comment on above: Performed By: #### L 7000.0700, M600.5000, M100.637, M7400.3302, M100.6796 #### [facility] [address] [place], [address] MCV (RBC) [Entitic vol] 88.9 fL Normal 81-99 [facility] Comment on above: Performed By: #### L 7000.0700, M600.5000, M100.637, M7400.3302, M100.6796 #### [facility] [address] [place], [address] Monocytes/100 WBC (Bld) 4.7 % Normal 0-10 [facility] Comment on above: Performed By: #### L 7000.0700, M600.5000, M100.637, M7400.3302, M100.6796 #### [facility] [address] [place], [address] Neutrophils/100 WBC (Bld) 60.4 % Normal 47-70 [facility] Comment on above: Performed By: #### L 7000.0700, M600.5000, M100.637, M7400.3302, M100.6796 #### [facility] [address] [place], [address] Nucleated RBC (Bld) [#/Vol] 0 10*3/uL Normal 0-5 [facility] Comment on above: Performed By: #### L 7000.0700, M600.5000, M100.637, M7400.3302, M100.6796 #### [facility] [address] [place], [address] Platelet mean volume (Bld) [Entitic vol] 10.2 fL Normal 6.2-12.0 [facility] Comment on above: Performed By: #### L 7000.0700, M600.5000, M100.637, M7400.3302, M100.6796 #### [facility] [address] [place], [address] Platelets (Bld) [#/Vol] 391 10*3/uL Normal 150-450 [facility] Comment on above: Performed By: #### L 7000.0700, M600.5000, M100.637, M7400.3302, M100.6796 #### [facility] [address] [place], [address] RBC (Bld) [#/Vol] 4.40 10*6/uL Normal 4.2-5.4 [facility] Comment on above: Performed By: #### L 7000.0700, M600.5000, M100.637, M7400.3302, M100.6796 #### [facility] [address] [place], [address] RDW SD 44.5 fl High 35.1-43.9 [facility] Comment on above: Performed By: #### L 7000.0700, M600.5000, M100.637, M7400.3302, M100.6796 #### [facility] [address] [place], [address] WBC (Bld) [#/Vol] 18.3 10*3/uL High 4.4-11.0 [facility] Comment on above: Performed By: #### L 7000.0700, M600.5000, M100.637, M7400.3302, M100.6796 #### [facility] [address] [place], [address] Absolute Lymph 4.38 X10 3/uL Normal 0.83-4.51 [facility] Comment on above: Performed By: #### L 7000.0700, M600.5000, M100.637, M7400.3302, M100.6796 #### [facility] [address] [place], [address] Absolute Neut 8.0 X10 3/uL High 2.0-7.7 [facility] Comment on above: Performed By: #### L 7000.0700, M600.5000, M100.637, M7400.3302, M100.6796 #### [facility] [address] [place], [address] Basophils/100 WBC (Bld) 0.7 % Normal 0-1 [facility] Comment on above: Performed By: #### L 7000.0700, M600.5000, M100.637, M7400.3302, M100.6796 #### [facility] [address] [place], [address] Eosinophils/100 WBC (Bld) 8.2 % High 0-5 [facility] Comment on above: Performed By: #### L 7000.0700, M600.5000, M100.637, M7400.3302, M100.6796 #### [facility] [address] [place], [address] Erythrocyte distribution width (RBC) [Ratio] 13.8 % Normal 11.6-14.6 [facility] Comment on above: Performed By: #### L 7000.0700, M600.5000, M100.637, M7400.3302, M100.6796 #### [facility] [address] [place], [address] Hematocrit (Bld) [Volume fraction] 38.5 % Normal 37-47 [facility] Comment on above: Performed By: #### L 7000.0700, M600.5000, M100.637, M7400.3302, M100.6796 #### [facility] [address] [place], [address] Hemoglobin (Bld) [Mass/Vol] 12.8 g/dL Normal 12.0-15.0 [facility] Comment on above: Performed By: #### L 7000.0700, M600.5000, M100.637, M7400.3302, M100.6796 #### [facility] [address] [place], [address] IG% 0.300 Normal 0.0-0.9 [facility] Comment on above: Result Comment: IG% - Immature Granulocytes (promyelocytes, myelocytes and metamyelocytes) > 1% indicates that a LEFT SHIFT is Present. Performed By: #### L 7000.0700, M600.5000, M100.637, M7400.3302, M100.6796 #### [facility] [address] [place], [address] Lymphocytes/100 WBC (Bld) 29.8 % Normal 19-41 [facility] Comment on above: Performed By: #### L 7000.0700, M600.5000, M100.637, M7400.3302, M100.6796 #### [facility] [address] [place], [address] MCH (RBC) [Entitic mass] 29.3 pg Normal 27.0-32.0 [facility] Comment on above: Performed By: #### L 7000.0700, M600.5000, M100.637, M7400.3302, M100.6796 #### [facility] [address] [place], [address] MCHC (RBC) [Mass/Vol] 33.2 g/dL Normal 32-36 [facility] Comment on above: Performed By: #### L 7000.0700, M600.5000, M100.637, M7400.3302, M100.6796 #### [facility] [address] [place], [address] MCV (RBC) [Entitic vol] 88.1 fL Normal 81-99 [facility] Comment on above: Performed By: #### L 7000.0700, M600.5000, M100.637, M7400.3302, M100.6796 #### [facility] [address] [place], [address] Monocytes/100 WBC (Bld) 6.5 % Normal 0-10 [facility] Comment on above: Performed By: #### L 7000.0700, M600.5000, M100.637, M7400.3302, M100.6796 #### [facility] [address] [place], [address] Neutrophils/100 WBC (Bld) 54.5 % Normal 47-70 [facility] Comment on above: Performed By: #### L 7000.0700, M600.5000, M100.637, M7400.3302, M100.6796 #### [facility] [address] [place], [address] Nucleated RBC (Bld) [#/Vol] 0 10*3/uL Normal 0-5 [facility] Comment on above: Performed By: #### L 7000.0700, M600.5000, M100.637, M7400.3302, M100.6796 #### [facility] [address] [place], [address] Platelet mean volume (Bld) [Entitic vol] 9.9 fL Normal 6.2-12.0 [facility] Comment on above: Performed By: #### L 7000.0700, M600.5000, M100.637, M7400.3302, M100.6796 #### [facility] [address] [place], [address] Platelets (Bld) [#/Vol] 382 10*3/uL Normal 150-450 [facility] Comment on above: Performed By: #### L 7000.0700, M600.5000, M100.637, M7400.3302, M100.6796 #### [facility] [address] [place], [address] RBC (Bld) [#/Vol] 4.37 10*6/uL Normal 4.2-5.4 [facility] Comment on above: Performed By: #### L 7000.0700, M600.5000, M100.637, M7400.3302, M100.6796 #### [facility] [address] [place], [address] RDW SD 44.5 fl High 35.1-43.9 [facility] Comment on above: Performed By: #### L 7000.0700, M600.5000, M100.637, M7400.3302, M100.6796 #### [facility] [address] [place], [address] WBC (Bld) [#/Vol] 14.7 10*3/uL High 4.4-11.0 [facility] Comment on above: Performed By: #### L 7000.0700, M600.5000, M100.637, M7400.3302, M100.6796 #### [facility] [address] [place], [address] CDIFF (PCR)on 12-16-2024 CDIFF Pending [id number] NAP1-B1 Presumptive Negative *for epidemiolologic???use C. Diff PCR Negative- No toxigenic C. Diff Detected Normal [facility] Comment on above: Performed By: #### L 7000.0700, M600.5000, M100.637, M7400.3302, M100.6796 #### [facility] [address] [place], [place], [id number] Calprotectin stoolOrdered By : Keren Shields on 12-16-2024 Calprotectin stool 282 ug/g High 0-120 [facility] Comment on above: Concentration Interp retation Follow-Up< 5 - 50 ug/g Normal None>50 -120 ug/g Borderline Re-evaluate in 4-6 weeks >120 ug/g Abnormal Repeat as clinically indicatedPerformed at: [facility] [address] [id number] Director: Velia Meléndez MD, Phone: [phone] Carbon dioxide, total [Moles /volume] in Central venous bloodOrdered By: Stef Jaimes on 12-16-2024 CO2 [Moles/Vol] 22.7 mmol/L 21.0-32.0 [facility] Carbon dioxide, total [Moles /volume] in Central venous bloodOrdered By: Keren Shields on 12-16-2024 CO2 [Moles/Vol] 24.3 mmol/L 21.0-32.0 [facility] Chloride assayOrdered By: Benjamín Jaimes on 12-16-2024 Chloride [Moles/Vol] 102 mmol/L 98-108 [facility] Chloride assayOrdered By: Comfort Shields on 12-16-2024 Chloride [Moles/Vol] 106 mmol/L 98-108 [facility] Clostridium difficile detect ion by polymerase chain reactionOrdered By: Keren Shields on 12-16-2024 C. difficile DNA MAGDA+probe Ql (Unsp spec) [facility] Comprehensive Metabolic Prof ilon 12-16-2024 Albumin [Mass/Vol] 4.4 g/dL Normal 3.5-5.0 [facility] Comment on above: Performed By: #### L 7000.0700, M600.5000, M100.637, M7400.3302, M100.6796 #### [facility] [address] [place], [address] Albumin/Globulin [Mass ratio] 1.4 {ratio} Normal 0.9-2.4 [facility] Comment on above: Performed By: #### L 7000.0700, M600.5000, M100.637, M7400.3302, M100.6796 #### [facility] [address] [place], [address] ALK PHOS 106 U/L High 35-104 [facility] Comment on above: Performed By: #### L 7000.0700, M600.5000, M100.637, M7400.3302, M100.6796 #### [facility] [address] [place], [address] ALT [Catalytic activity/Vol] 11 U/L Normal <=34 [facility] Comment on above: Performed By: #### L 7000.0700, M600.5000, M100.637, M7400.3302, M100.6796 #### [facility] [address] [place], [address] AST [Catalytic activity/Vol] 15 U/L Normal <=31 [facility] Comment on above: Performed By: #### L 7000.0700, M600.5000, M100.637, M7400.3302, M100.6796 #### [facility] [address] [place], [address] Bilirubin [Mass/Vol] 0.19 mg/dL Normal 0.00-1.30 [facility] Comment on above: Performed By: #### L 7000.0700, M600.5000, M100.637, M7400.3302, M100.6796 #### [facility] [address] [place], [address] BUN/CRE 10.6 RATIO Normal 10-20 [facility] Comment on above: Performed By: #### L 7000.0700, M600.5000, M100.637, M7400.3302, M100.6796 #### [facility] [address] [place], [address] Calcium [Mass/Vol] 9.2 mg/dL Normal 7.6-11.0 [facility] Comment on above: Performed By: #### L 7000.0700, M600.5000, M100.637, M7400.3302, M100.6796 #### [facility] [address] [place], [address] Chloride [Moles/Vol] 102 mmol/L Normal 98-108 [facility] Comment on above: Performed By: #### L 7000.0700, M600.5000, M100.637, M7400.3302, M100.6796 #### [facility] [address] [place], [address] CO2 [Moles/Vol] 22.7 mmol/L Normal 21.0-32.0 [facility] Comment on above: Performed By: #### L 7000.0700, M600.5000, M100.637, M7400.3302, M100.6796 #### [facility] [address] [place], [address] Creatinine [Mass/Vol] 0.72 mg/dL Normal 0.70-1.20 [facility] Comment on above: Performed By: #### L 7000.0700, M600.5000, M100.637, M7400.3302, M100.6796 #### [facility] [address] [place], [address] ECRCL 166.83 ml/min Normal 50-250 [facility] Comment on above: Performed By: #### L 7000.0700, M600.5000, M100.637, M7400.3302, M100.6796 #### [facility] [address] [place], [address] GAP 14 Normal 5-15 [facility] Comment on above: Performed By: #### L 7000.0700, M600.5000, M100.637, M7400.3302, M100.6796 #### [facility] [address] [place], [address] GFR/1.73 sq M.predicted among non-blacks MDRD (S/P/Bld) [Vol rate/Area] 116 mL/min/{1.73_m2} Normal >60 [facility] Comment on above: Result Comment: mL/m in/1.73m2 CKD-EPI Creatinine Equation (2020) Performed By: #### L 7000.0700, M600.5000, M100.637, M7400.3302, M100.6796 #### [facility] [address] [place], [address] Globulin (S) [Mass/Vol] 3.2 g/dL Normal 2.2-4.2 [facility] Comment on above: Performed By: #### L 7000.0700, M600.5000, M100.637, M7400.3302, M100.6796 #### [facility] [address] [place], [address] Glucose [Mass/Vol] 93 mg/dL Normal 70-99 [facility] Comment on above: Performed By: #### L 7000.0700, M600.5000, M100.637, M7400.3302, M100.6796 #### [facility] [address] [place], [address] Potassium [Moles/Vol] 3.4 mmol/L Normal 3.3-5.1 [facility] Comment on above: Performed By: #### L 7000.0700, M600.5000, M100.637, M7400.3302, M100.6796 #### [facility] [address] [place], [address] Sodium [Moles/Vol] 139 mmol/L Normal 133-145 [facility] Comment on above: Performed By: #### L 7000.0700, M600.5000, M100.637, M7400.3302, M100.6796 #### [facility] [address] [place], [address] T PROT 7.5 g/dL Normal 5.9-8.4 [facility] Comment on above: Performed By: #### L 7000.0700, M600.5000, M100.637, M7400.3302, M100.6796 #### [facility] [address] [place], [address] Urea nitrogen [Mass/Vol] 8 mg/dL Normal 4-19 [facility] Comment on above: Performed By: #### L 7000.0700, M600.5000, M100.637, M7400.3302, M100.6796 #### [facility] [address] [place], [address] Albumin [Mass/Vol] 4.1 g/dL Normal 3.5-5.0 [facility] Comment on above: Performed By: #### L 7000.0700, M600.5000, M100.637, M7400.3302, M100.6796 #### [facility] [address] [place], [address] Albumin/Globulin [Mass ratio] 1.6 {ratio} Normal 0.9-2.4 [facility] Comment on above: Performed By: #### L 7000.0700, M600.5000, M100.637, M7400.3302, M100.6796 #### [facility] [address] [place], [address] ALK PHOS 96 U/L Normal 35-104 [facility] Comment on above: Performed By: #### L 7000.0700, M600.5000, M100.637, M7400.3302, M100.6796 #### [facility] [address] [place], [address] ALT [Catalytic activity/Vol] 10 U/L Normal <=34 [facility] Comment on above: Performed By: #### L 7000.0700, M600.5000, M100.637, M7400.3302, M100.6796 #### [facility] [address] [place], [address] AST [Catalytic activity/Vol] 13 U/L Normal <=31 [facility] Comment on above: Performed By: #### L 7000.0700, M600.5000, M100.637, M7400.3302, M100.6796 #### [facility] [address] [place], [address] Bilirubin [Mass/Vol] 0.29 mg/dL Normal 0.00-1.30 [facility] Comment on above: Performed By: #### L 7000.0700, M600.5000, M100.637, M7400.3302, M100.6796 #### [facility] [address] [place], [address] BUN/CRE 12.0 RATIO Normal 10-20 [facility] Comment on above: Performed By: #### L 7000.0700, M600.5000, M100.637, M7400.3302, M100.6796 #### [facility] [address] [place], [address] Calcium [Mass/Vol] 9.1 mg/dL Normal 7.6-11.0 [facility] Comment on above: Performed By: #### L 7000.0700, M600.5000, M100.637, M7400.3302, M100.6796 #### [facility] [address] [place], [address] Chloride [Moles/Vol] 106 mmol/L Normal 98-108 [facility] Comment on above: Performed By: #### L 7000.0700, M600.5000, M100.637, M7400.3302, M100.6796 #### [facility] [address] [place], [address] CO2 [Moles/Vol] 24.3 mmol/L Normal 21.0-32.0 [facility] Comment on above: Performed By: #### L 7000.0700, M600.5000, M100.637, M7400.3302, M100.6796 #### [facility] [address] [place], [address] Creatinine [Mass/Vol] 0.66 mg/dL Low 0.70-1.20 [facility] Comment on above: Performed By: #### L 7000.0700, M600.5000, M100.637, M7400.3302, M100.6796 #### [facility] [address] [place], [address] GAP 10 Normal 5-15 [facility] Comment on above: Performed By: #### L 7000.0700, M600.5000, M100.637, M7400.3302, M100.6796 #### [facility] [address] [place], [address] GFR/1.73 sq M.predicted among non-blacks MDRD (S/P/Bld) [Vol rate/Area] 123 mL/min/{1.73_m2} Normal >60 [facility] Comment on above: Result Comment: mL/m in/1.73m2 CKD-EPI Creatinine Equation (2020) Performed By: #### L 7000.0700, M600.5000, M100.637, M7400.3302, M100.6796 #### [facility] [address] [place], [address] Globulin (S) [Mass/Vol] 2.7 g/dL Normal 2.2-4.2 [facility] Comment on above: Performed By: #### L 7000.0700, M600.5000, M100.637, M7400.3302, M100.6796 #### [facility] [address] [place], [address] Glucose [Mass/Vol] 102 mg/dL High 70-99 [facility] Comment on above: Performed By: #### L 7000.0700, M600.5000, M100.637, M7400.3302, M100.6796 #### [facility] [address] [place], [address] Potassium [Moles/Vol] 3.7 mmol/L Normal 3.3-5.1 [facility] Comment on above: Performed By: #### L 7000.0700, M600.5000, M100.637, M7400.3302, M100.6796 #### [facility] [address] [place], [address] Sodium [Moles/Vol] 140 mmol/L Normal 133-145 [facility] Comment on above: Performed By: #### L 7000.0700, M600.5000, M100.637, M7400.3302, M100.6796 #### [facility] [address] [place], [address] T PROT 6.8 g/dL Normal 5.9-8.4 [facility] Comment on above: Performed By: #### L 7000.0700, M600.5000, M100.637, M7400.3302, M100.6796 #### [facility] [address] [facility] [place], [address] Urea nitrogen [Mass/Vol] 8 mg/dL Normal 4-19 [facility] Comment on above: Performed By: #### L 7000.0700, M600.5000, M100.637, M7400.3302, M100.6796 #### [facility] [address] [facility] [place], [address] ENTERIC PATHOGEN PANEL STOOL on 12-16-2024 EP PANEL 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 Not Detected VIBRIO Not Detected Yersinia Not Detected Normal [facility] Comment on above: Performed By: #### L 7000.0700, M600.5000, M100.637, M7400.3302, M100.6796 #### [facility] [address] [place], [address] Emergency Department Summary on 12-16-2024 Emergency Department Summary [facility] Medical Records Department [address] [place] [address] Emergency Department Summary 12/16/24 MR#: [id number] Acct: [id number] Name: GABRIELLE COOPER Rep #: [id number] : 1995 29 From: Stef Jaimes MD PCP: Dr. Lenore Meier MD Status:REG ER Location: ED HPI HPI - GI History of Present Illness Chief Complaint: Diarrhea Diarrhea/Melena/Hemato chezia GI Symptom: Positive for Diarrhea Onset: Month(s) (1) Stool Quality: Positive for Watery Narrative Narrative: 29-year-old female past medical history of gastroparesis and constipation as well as gastritis presents with diarrhea that she has had for a month. She states that she went and saw her real estate executive assistant/OMAR at Dr. Power's office today. They took a stool sample and did laboratory work. However, after her appointment she has had 7 episodes of watery stool. She states she usually only has 4-5 episodes a day over the last month. Usually, with her gastroparesis she is constipated so this is different for her. She states that she does not know what to do because she feels dehydrated and weak and she is continuing to have diarrhea multiple episodes a day. She denies any fevers or chills, no nausea or vomiting, no dysuria or hematuria, no exacerbating or alleviating factors. [facility] Medical History Axillary lump Hypertension Dermatitis Hypersomnolence COVID-19 Rash [...] Un known History mcg (50,000 unit) capsule spironolactone 50 mg tablet 50 mg PO QAM 05/30/17 03/02/24 His tory ferrous sulfate 325 mg (65 mg 325 mg PO DAILY 12/26/23 Unknown H istory iron) tablet norethindrone (contraceptive) 0.35 0.35 mg PO QDAY #84 tabs 4 03/02/24 Rx mg tablet (Jacquelin) omeprazole 40 mg capsule,delayed 40 mg PO QDAY #60 caps 03/10/24 Un known Rx release triamcinolone acetonide 0.1 % 1 applic topical BID PRN rash 06/19 06/15 Unknown Rx topical cream #453.6 grams amlodipine 5 mg tablet 5 mg PO QDAY #30 tabs 10/06/24 Unk nown Rx levothyroxine 75 mcg tablet 75 mcg PO DAILY #90 tabs 11/23/24 Unknown Rx Allergy/AdvReac Type Severity Reaction Status Date / Time amoxicillin Allergy Intermediate Rash Verified 12/16/24 19:35 clindamycin Allergy Rash Verified 12/16/24 19:35 Family History Grandfather Heart disease Mother Diabetes Grandmother Diabetes Surgical History History of tonsillectomy Social History adopted: No household members: family current occupational status: employed current occupation: [employer] Smoking Status: Current every day smoker tobacco type: cigarettes alcohol intake: never substance use type: does not use caffeine: Yes frequency: 3-4 times per week seatbelt use: always do you feel safe at home: Yes additional social history: single ROS ROS ED ROS Narrative Review of systems positive for epigastric pain, as well as multiple episodes of watery diarrhea daily for the last month. Endorses generalized weakness and feelings of dehydration. No fevers or chills, no nausea or vomiting, denies prior abdominal surgeries. EXAM Physical Exam Narrative Exam Narrative: Afebrile. Vital signs noted. Nontoxic-appearing. Cardiovascular examination reveals a regular rate and rhythm. Lungs are clear to auscultation bilaterally. Abdomen is soft and nontender with the exception of minimal tenderness in the epigastrium, but no guarding or rebound. Positive bowel sounds. Neurological examination nonfocal, nonlateralizing. Const Vital Signs: 12/16/24 19:32 12/16/24 20:06 12/16/24 21:00 Temperature 98.3 F 97.9 F 97.9 F Temperature Source Temporal Temporal Temporal Pulse Rate 73 76 72 Respiratory Rate 16 18 19 H Blood Pressure 145/74 H 147/84 H 140/87 H Blood Pressure Mean 97 105 104 Pulse Ox 100 100 99 Oxygen Delivery Method Room Air Room Air Room Air 12/16/24 21:31 12/16/24 22:00 Temperature 98 F Temperature Source Oral Pulse Rate 97 78 Respiratory Rate 18 21 H Blood Pressure 138/79 H Blood Pressure Mean 98 Pulse Ox 100 99 Oxygen Delivery Method Room Air Room Air MDM MDM MDM N (more content not included)... Normal [facility] Eosinophil percentageOrdered By: Stef Jaimes on 12-16-2024 Eosinophils/100 WBC (Bld) 6.7 % High 0-5 [facility] Eosinophil percentageOrdered By: Keren Shields on 12-16-2024 Eosinophils/100 WBC (Bld) 8.2 % High 0-5 [facility] Erythrocyte distribution wid th ratioOrdered By: Stef Jaimes on 12-16-2024 Erythrocyte distribution width (RBC) [Ratio] 13.7 % 11.6-14.6 [facility] Erythrocyte distribution wid th ratioOrdered By: Keren Shields on 12-16-2024 Erythrocyte distribution width (RBC) [Ratio] 13.8 % 11.6-14.6 [facility] Erythrocyte distribution wid th standard deviationOrdered By: Stef Jaimes on 12-16-2024 Erythrocyte distribution width (RBC) [Ratio] 44.5 fl High 35.1-43.9 [facility] Erythrocyte distribution wid th standard deviationOrdered By: Keren Shields on 12-16-2024 Erythrocyte distribution width (RBC) [Ratio] 44.5 fl High 35.1-43.9 [facility] Gastroenterology Visit Repor ton 12-16-2024 Gastroenterology Visit Report [facility] [address] [place] [address] OFFICE VISIT Date of Service: 12/16/24 MR#: [id number] Acct: [id number] Name: GABRIELLE COOPER Rep #: [id number] : 1995 Provider: AKI Seaman Age/Sex: 29/F Location: [facility] Status: Signed Intake Vital Signs 10/06/24 13:38 Height 5 ft 7 in Weight: 300 lb BMI 47.0 BP 142/80 H Blood Pressure Location Lt brachial Position Sitting Respiration 18 Pulse 93 Pulse Source Monitor Temp 98.2 F Temp Source Temporal Pulse Oximetry (%) 98 Oxygen Delivery Method room air Intake Visit Reasons: ABDOMINAL PAIN DIARRHEA Chief Complaint: Loose stool Allergies amoxicillin Allergy (Intermediate, Verified 10/06/24 13:40) Rash clindamycin Allergy (Verified 10/06/24 13:40) Rash Medications ???Medication ???Instructions ???Recorded ???Confirmed ???Type cholecalciferol (vitamin D3) 1,250 50,000 unit PO QWEEK 05/30/17 History mcg (50,000 unit) capsule spironolactone 50 mg tablet 50 mg PO QAM 05/30/17 12/16/24 His tory ferrous sulfate 325 mg (65 mg 325 mg PO DAILY 12/26/23 12/16/24 History iron) tablet norethindrone (contraceptive) 0.35 0.35 mg PO QDAY #84 tabs 4 12/16/24 Rx mg tablet (Jacquelin) omeprazole 40 mg capsule,delayed 40 mg PO QDAY #60 caps 03/10/24 Rx release triamcinolone acetonide 0.1 % 1 applic topical BID PRN rash 06/1912/16/24 Rx topical cream #453.6 grams amlodipine 5 mg tablet 5 mg PO QDAY #30 tabs 10/06/24 Rx levothyroxine 75 mcg tablet 75 mcg PO DAILY #90 tabs 11/23/24 12/16/24 Rx [facility] Medical History (Updated 12/16/24 @ 09:47 by AKI Seaman) Axillary lump Hypertension Dermatitis Hypersomnolence COVID-19 Rash [...] family current occupational status: employed current occupation: [employer] Smoking Status: Current every day smoker tobacco type: cigarettes alcohol intake: never substance use type: does not use caffeine: Yes frequency: 3-4 times per week seatbelt use: always do you feel safe at home: Yes additional social history: single HPI HPI Chief Complaint: Loose stool Details: GABRIELLE COOPER, is a 29 F who presents to the office today for follow-up. [facility] ED 9.2.14; abd pain and dark stool. normal work up. CT abd/pelvis .06.14;CT abdomen pelvis 9.06.14; Possible hydrosalpinx on the right. Otherwise no acute disease. Recommend pelvic ultrasound. [facility] established 10.15.24 w/ abd/epigastric pain and pressure for one month. EGD 03.02.24; - Normal esophagus. - Bilious gastric fluid. - Erythematous mucosa in the gastric body. Biopsied. - Erythematous duodenopathy. GES 04.12.24; 53 minutes normal OV 1.17.25 Pt has [...] not taking any stool softeners or laxatives. OV 8..25 patient having loose stool over the past 2 months. She is having loose stool 3-4 times per day. She describes it as watery and yellow. Symptoms are not related to oral intake and can happen randomly. She has abdominal cramping prior to the bowel movement. She denies nocturnal symptoms. Patient typically has constipation. Drinking Kefir did help her stools become a little bit more formed. ROS Const Constitutional: Positive for fatigue; No fever(s) or weight change ENT ENT: No difficulty swallowing Gastro GI: Positive for abdominal pain, bloating, change in bowel habits, constipation, diarrhea, heartburn, excessive flatus and nausea/dyspepsia; No belching, change in stool character, coffee ground emesis, cramping, difficulty swallowing, feeling full early, incontinent of stools, Vomiting blood/hematemesis, Blood in stool, loose stools, Black,tarry stools, pain with swallowing, vomitin (more content not included)... Normal [facility] Glomerular filtration rate ( GFR) estimation/1.73 sq m using serum, plasma, or whole bOrdered By: Stef Jaimes on 12-16-2024 GFR/1.73 sq M.predicted among non-blacks MDRD (S/P/Bld) [Vol rate/Area] 116 mL/min/{1.73_m2} >60 [facility] Comment on above: mL/min/1.73m2 CKD-EP I Creatinine Equation (2020) Glomerular filtration rate ( GFR) estimation/1.73 sq m using serum, plasma, or whole bOrdered By: Keren Shields on 12-16-2024 GFR/1.73 sq M.predicted among non-blacks MDRD (S/P/Bld) [Vol rate/Area] 123 mL/min/{1.73_m2} >60 [facility] Comment on above: mL/min/1.73m2 CKD-EP I Creatinine Equation (2020) Hematocrit Auto (Bld) [Volum e fraction]Ordered By: Stef aJimes on 12-16-2024 Hematocrit (Bld) [Volume fraction] 39.1 % 37-47 [facility] Hematocrit Auto (Bld) [Volum e fraction]Ordered By: Keren Shields on 12-16-2024 Hematocrit (Bld) [Volume fraction] 38.5 % 37-47 [facility] Hemoglobin measurementOrdere d By: Stef Jaimes on 12-16-2024 Hemoglobin (Bld) [Mass/Vol] 12.9 g/dL 12.0-15.0 [facility] Hemoglobin measurementOrdere d By: Keren Shields on 12-16-2024 Hemoglobin (Bld) [Mass/Vol] 12.8 g/dL 12.0-15.0 [facility] Immature granulocytes/100 WB C Auto (Bld)Ordered By: Stef Jaimes on 12-16-2024 Immature granulocytes/100 WBC (Bld) 0.400 % 0.0-0.9 [facility] Comment on above: IG% - Immature Granu locytes (promyelocytes, myelocytes and metamyelocytes) > 1% indicates that a LEFT SHIFT is Present. Immature granulocytes/100 WB C Auto (Bld)Ordered By: Keren Shields on 12-16-2024 Immature granulocytes/100 WBC (Bld) 0.300 % 0.0-0.9 [facility] Comment on above: IG% - Immature Granu locytes (promyelocytes, myelocytes and metamyelocytes) > 1% indicates that a LEFT SHIFT is Present. Ketones Test strip Ql (U)Ord ered By: Stef Jaimes on 12-16-2024 Ketones Ql (U) Negative Negative [facility] - Chemistry and C hemistry - challengeOrdered By: Stef Jaimes on 12-16-2024 AST [Catalytic activity/Vol] 15 U/L <32 [facility] - Chemistry and C hemistry - challengeOrdered By: Keren Shields on 12-16-2024 AST [Catalytic activity/Vol] 13 U/L <32 [facility] Lipaseon 12-16-2024 Lipase [Catalytic activity/Vol] 25 U/L Normal 13-75 [facility] Comment on above: Result Comment: Traci tuttle note: LIPASE revised reference range effective 22. New Lipase methodology. Expected to produce lower values than the previous assay method. NEW Reference Range: 13 - 75 U/L Performed By: #### L 7000.0700, M600.5000, M100.637, M7400.3302, M100.6796 #### [facility] [address] [place], [address] Lipase measurementOrdered By : Stef Jaimes on 12-16-2024 Lipase [Catalytic activity/Vol] 25 U/L 13-75 [facility] Comment on above: Please note:LIPASE r evised reference range effective 22. New Lipase methodology. Expected to produce lower values than the previous assay method. NEW Reference Range: 13 - 75 U/L MCV (mean corpuscular volume ) determinationOrdered By: Stef Jaimes on 12-16-2024 MCV (RBC) [Entitic vol] 88.9 fL 81-99 [facility] MCV (mean corpuscular volume ) determinationOrdered By: Keren Shields on 12-16-2024 MCV (RBC) [Entitic vol] 88.1 fL 81-99 [facility] Mean corpuscular hemoglobin (MCH) determinationOrdered By: Stef Jaimes on 12-16-2024 MCH (RBC) [Entitic mass] 29.3 pg 27.0-32.0 [facility] Mean corpuscular hemoglobin (MCH) determinationOrdered By: Keren Shields on 12-16-2024 MCH (RBC) [Entitic mass] 29.3 pg 27.0-32.0 [facility] Mean corpuscular hemoglobin concentration (MCHC) determinationOrdered By: Stef Jaimes on 12-16-2024 MCHC (RBC) [Mass/Vol] 33.0 g/dL - [facility] Mean corpuscular hemoglobin concentration (MCHC) determinationOrdered By: Keren Shields on 12-16-2024 MCHC (RBC) [Mass/Vol] 33.2 g/dL -36 [facility] Mean platelet volume determi nationOrdered By: Stef Jaimes on 12-16-2024 Platelet mean volume (Bld) [Entitic vol] 10.2 fL 6.2-12.0 [facility] Mean platelet volume determi nationOrdered By: Keren Shields on 12-16-2024 Platelet mean volume (Bld) [Entitic vol] 9.9 fL 6.2-12.0 [facility] Microscopic analysis of urin e for red blood cells (RBC)Ordered By: Stef Jaimes on 12-16-2024 Microscopic analysis of urine for red blood cells (RBC) 0-5 SEEN /hpf 0-5 [facility] Monocyte percentageOrdered B y: Stef Jaimes on 12-16-2024 Monocytes/100 WBC (Bld) 4.7 % 0-10 [facility] Monocyte percentageOrdered B y: Keren Shields on 12-16-2024 Monocytes/100 WBC (Bld) 6.5 % 0-10 [facility] Mucus LM Ql (Urine sed)Order ed By: Stef Jaimes on 12-16-2024 Mucus Ql (Urine sed) 0 SEEN /hpf [facility] Neutrophil percentageOrdered By: Stef Jaimes on 12-16-2024 Neutrophils/100 WBC (Bld) 60.4 % 47-70 [facility] Neutrophil percentageOrdered By: Keren Shields on 12-16-2024 Neutrophils/100 WBC (Bld) 54.5 % 47-70 [facility] Nitrite Test strip Ql (U)Ord ered By: Stef Jaimes on 12-16-2024 Nitrite Ql (U) Negative Negative [facility] Nucleated red blood cell per centageOrdered By: Stef Jaimes on 12-16-2024 Nucleated RBC/100 WBC (Bld) [Ratio] 0 % 0-5 [facility] Nucleated red blood cell per centageOrdered By: Keren Shields on 12-16-2024 Nucleated RBC/100 WBC (Bld) [Ratio] 0 % 0-5 [facility] Platelet countOrdered By: Benjamín Jaimes on 12-16-2024 Platelets (Bld) [#/Vol] 391 10*3/uL 150-450 [facility] Platelet countOrdered By: Comfort Shields on 12-16-2024 Platelets (Bld) [#/Vol] 382 10*3/uL 150-450 [facility] Potassium measurement (mass/ volume)Ordered By: Stef Jaimes on 12-16-2024 Potassium (Unsp spec) [Mass/Vol] 3.4 mmol/L 3.3-5.1 [facility] Potassium measurement (mass/ volume)Ordered By: Keren Shields on 12-16-2024 Potassium (Unsp spec) [Mass/Vol] 3.7 mmol/L 3.3-5.1 [facility] ,Serum,hCG Quali.on 12-16-2024 HCG, SERUM QUAL Negative Normal [facility] Comment on above: Performed By: #### L 7000.0700, M600.5000, M100.637, M7400.3302, M100.6796 #### [facility] [address] [place] [address], [address] Protein Test strip Ql (U)Ord ered By: Stef Jaimes on 12-16-2024 Protein Ql (U) 15 mg/dl High Negative [facility] RBC Auto (Bld) [#/Vol]Ordere d By: Stef Jaimes on 12-16-2024 RBC (Bld) [#/Vol] 4.40 10*6/uL 4.2-5.4 [facility] RBC Auto (Bld) [#/Vol]Ordere d By: Keren Shields on 12-16-2024 RBC (Bld) [#/Vol] 4.37 10*6/uL 4.2-5.4 [facility] Serum beta-hCG test, qualita tiveOrdered By: Stef Jaimes on 12-16-2024 Beta HCG ( test) Ql Negative [facility] Serum creatinine measurement (mass/volume)Ordered By: Stef Jaimes on 12-16-2024 Creatinine [Mass/Vol] 0.72 mg/dL 0.70-1.20 [facility] Serum creatinine measurement (mass/volume)Ordered By: Keren Shields on 12-16-2024 Creatinine [Mass/Vol] 0.66 mg/dL Low 0.70-1.20 [facility] Serum globulin measurementOr dered By: Stef Jaimes on 12-16-2024 Globulin (S) [Mass/Vol] 3.2 g/dL 2.2-4.2 [facility] Serum globulin measurementOr dered By: Keren Shields on 12-16-2024 Globulin (S) [Mass/Vol] 2.7 g/dL 2.2-4.2 [facility] Serum glucose measurement (m ass/volume)Ordered By: Stef Jaimes on 12-16-2024 Glucose [Mass/Vol] 93 mg/dL 70- [facility] Serum glucose measurement (m ass/volume)Ordered By: Keren Shields on 12-16-2024 Glucose [Mass/Vol] 102 mg/dL High 70-99 [facility] Serum or plasma alanine yanez otransferase (ALT) measurementOrdered By: Stef Jaimes on 12-16-2024 ALT [Catalytic activity/Vol] 11 U/L <35 [facility] Serum or plasma alanine yanez otransferase (ALT) measurementOrdered By: Keren Shields on 12-16-2024 ALT [Catalytic activity/Vol] 10 U/L <35 [facility] Serum or plasma albumin teo urement (mass/volume)Ordered By: Stef Jaimes on 12-16-2024 Albumin [Mass/Vol] 4.4 g/dL 3.5-5.0 [facility] Serum or plasma albumin teo urement (mass/volume)Ordered By: Keren Shields on 12-16-2024 Albumin [Mass/Vol] 4.1 g/dL 3.5-5.0 [facility] Serum or plasma albumin/glob ulin mass ratioOrdered By: Stef Jaimes on 12-16-2024 Albumin/Globulin [Mass ratio] 1.4 {ratio} 0.9-2.4 [facility] Serum or plasma albumin/glob ulin mass ratioOrdered By: Keren Shields on 12-16-2024 Albumin/Globulin [Mass ratio] 1.6 {ratio} 0.9-2.4 [facility] Serum or plasma alkaline alberto sphatase measurementOrdered By: Stef Jaimes on 12-16-2024 ALP [Catalytic activity/Vol] 106 U/L High 35-104 [facility] Serum or plasma alkaline alberto sphatase measurementOrdered By: Keren Shields on 12-16-2024 ALP [Catalytic activity/Vol] 96 U/L 35-104 [facility] [facility] Serum or plasma calcium teo urement (mass/volume)Ordered By: Stef Jaimes on 12-16-2024 Calcium [Mass/Vol] 9.2 mg/dL 7.6-11.0 [facility] Serum or plasma calcium teo urement (mass/volume)Ordered By: Keren Shields on 12-16-2024 Calcium [Mass/Vol] 9.1 mg/dL 7.6-11.0 [facility] Serum or plasma urea nitroge n measurement (mass/volume)Ordered By: Stef Jaimes on 12-16-2024 Urea nitrogen [Mass/Vol] 8 mg/dL 08-07 [facility] Serum or plasma urea nitroge n measurement (mass/volume)Ordered By: Keren Shields on 12-16-2024 Urea nitrogen [Mass/Vol] 8 mg/dL - [facility] Sodium levelOrdered By: Stef Jaimes on 12-16-2024 Sodium [Moles/Vol] 139 mmol/L 133-145 [facility] Sodium levelOrdered By: Inocencio Shields on 12-16-2024 Sodium [Moles/Vol] 140 mmol/L 133-145 [facility] Squamous epithelial cells de tection in urine sediment by light microscopyOrdered By: Stef Jaimes on 12-16-2024 Epithelial cells.squamous LM Ql (Urine sed) 0-5 SEEN /hpf 5-10 [facility] Total proteinOrdered By: Francia Jaimes on 12-16-2024 Protein [Mass/Vol] 7.5 g/dL 5.9-8.4 [facility] Total proteinOrdered By: Juliette Shields on 12-16-2024 Protein [Mass/Vol] 6.8 g/dL 5.9-8.4 [facility] Urinalysis, Completeon 12-16 EPI,SQUAMOUS 0-5 SEEN Normal 5-10 [facility] Comment on above: Order Comment: CLEAN CATCH Performed By: #### L 400.0001 #### [facility] [address] [place], [address] RBC 0-5 SEEN Normal 0-5 [facility] Comment on above: Order Comment: CLEAN CATCH Performed By: #### L 400.0001 #### [facility] [address] [place], [address] WBC 0-5 SEEN Normal 0-5 [facility] Comment on above: Order Comment: CLEAN CATCH Performed By: #### L 400.0001 #### [facility] [address] [place], [address] BACTERIA 0 SEEN Normal None Seen [facility] Comment on above: Order Comment: CLEAN CATCH Performed By: #### L 400.0001 #### [facility] [address] [place], [address] Mucus Ql (Urine sed) 0 SEEN Normal [facility] Comment on above: Order Comment: CLEAN CATCH Performed By: #### L 400.0001 #### [facility] [address] [place], [address] Urine clarityOrdered By: Francia Jaimes on 12-16-2024 Clarity (U) Clear Clear [facility] Urine color determinationOrd ered By: Stef Jaimes on 12-16-2024 Color (U) Straw Yellow [facility] Urine glucose detectionOrder ed By: Stef Jaimes on 12-16-2024 Glucose Ql (U) Normal mg/dl Normal [facility] Urine leukocyte esterase det ection by dipstickOrdered By: Stef Jaimes on 12-16-2024 Leukocyte esterase Test strip Ql (U) Negative Negative [facility] Urine pHOrdered By: Stef maldonado on 12-16-2024 pH (U) 6.0 [pH] 5.0 - 8.0 [facility] Urine sediment bacteria coun t by microscopy (number/high power field)Ordered By: Stef Jaimes on 12-16-2024 Bacteria LM.HPF (Urine sed) [#/Area] 0 /[HPF] None Seen [facility] Urine specific gravity measu rementOrdered By: Stef Jaimes on 12-16-2024 Specific gravity (U) [Rel density] 1.015 1.002-1.030 [facility] Urine urobilinogen measureme ntOrdered By: Stef Jaimes on 12-16-2024 Urobilinogen Ql (U) Normal mg/dl Normal [facility] White blood cell (WBC) count Ordered By: Stef Jaimes on 12-16-2024 WBC (Bld) [#/Vol] 18.3 10*3/uL High 4.4-11.0 [facility] White blood cell (WBC) count Ordered By: Keren Shields on 12-16-2024 WBC (Bld) [#/Vol] 14.7 10*3/uL High 4.4-11.0 [facility] White blood cell countOrdere d By: Stef Jaimes on 12-16-2024 White blood cell count 0-5 SEEN /hpf 0-5 [facility] Internal Medicine Office Vis paco 10-06-2024 Internal Medicine Office Visit [facility] [address] [place], [place] [address] OFFICE VISIT Date of Service: 10/06/24 MR#: [id number] Acct: [id number] Name: GABRIELLE COOPER Rep #: [id number] : 1995 Provider: Dr. Lenore chauhan MD Age/Sex: 29/F Location[facility] Status: Signed Intake Vital Signs 06/30/24 15:38 [...] family current occupational status: employed current occupation: [employer] Smoking Status: Current every day smoker tobacco [...] on e (more content not included)... [facility] ([facility] ) GABRIELLE COOPER ([id number]) 1995 F Date Time Provider Department 08/18/24 4:45 PM DALIA GONZALES [facility] During your visit today, we recorded the following information about you: Temperature Pulse Respiration Blood pressure 98.7 degrees 92/minute 16/minute 120/78 Weight 130 kg Dalia Gonzales APRN.CNP 08/18/2024 4:55 PM Signed Acute Bronchitis What is acute bronchitis? Acute bronchitis is an infection of the bronchial (say: ?mqhgr-zqo-ypz?) tree. The bronchial tree is made up [...] get worse. Thank you for coming to [facility] today. I appreciate your confidence in choosing the [facility] for your medical care. Dalia Gonzales APRN.COMPLIANCE TESTING ANALYST [facility] [address] [facility] [id number] Dalia Gonzales APRN.CNP 08/18/2024 5:02 PM Signed [...] and wheezing (more content not included)... Normal [facility] Chest PA and Lateralon 08-11 Chest PA and Lateral [facility] Imaging Services [address] [place], [place] [address] Chest PA and Lateral MR#: [id number] Acct: [id number] Name: GABRIELLE COOPER Rep #: [id number] : 1995 F 29 From: Thierno Cuenca MD PCP: Dr. Lenore Meier MD Status: REG ER Study: Chest PA and Lateral Date of Exam: 08/11/24 Exam# [id number] Ordering Dr: Nathen Jacobo DO PROCEDURE: CHEST PA AND LATERAL 08/11/2024 REASON FOR EXAM: COUGH TECHNIQUE: Frontal and lateral views of the chest. FINDINGS: Hardware: None Heart: The heart size is normal. Mediastinum: The mediastinal contour is unremarkable. Lungs: The lungs are clear. Bones: The bones are unremarkable. RAD/Chest PA and Lateral IMPRESSION: NO ACUTE FINDINGS. Reading Location: [facility] CC: Dr. Nathen Jacobo DO; Dr. Lenore Meier MD [employer] Riveter: Signed Normal [facility] Emergency Department Summary on 08-11-2024 Emergency Department Summary [facility] Medical Records Department [address] [place] [address] Emergency Department Summary 08/11/24 MR#: [id number] Acct: [id number] Name: GABRIELLE COOPER Rep #: [id number] : 1995 29 From: Natehn Jacobo DO PCP: Dr. Lenore Meier MD [...] intact Psych: Cooperative, appropriate [facility] History Hypertension Dermatitis Hypersomnolence COVID-19 Rash [...] family current occupational status: employed current occupation: [employer] Smoking Status: Current every day smoker tobacco [...] diagnosis includ (more content not included)... Normal [facility] Influenza virus A and B and SARS-CoV-2 (COVID-19) and Respiratory syncytial virus RNAOrdered By: Nathen Jacobo on 08-11-2024 SARS-CoV-2 (COVID-19) RNA MAGDA+probe Ql (Unsp spec) [facility] M100.678on 08-11-2024 M100.678 Pending SARS-CoV-2 (COVID 19) Negative INFLUENZA A Negative INFLUENZA B Negative RSV PCR Negative Normal [facility] Comment on above: Performed By: #### L 7000.0700, M600.5000, M100.637, M7400.3302, M100.6796 #### [facility] [place], [address] CNOVon 08-09-2024 [facility] Office Visit ([facility] ) GABRIELLE COOPER ([id number]) 1995 F Date Time Provider Department 08/09/24 7:30 PM JAKE BERNABE [facility] During your visit today, we recorded the following information about you: Temperature Pulse Respiration Blood pressure 97.8 degrees 88/minute 18/minute 118/78 Weight 128.2 kg CarisafrankshahzadJakeJORDEN.KIA 08/09/2024 7:50 PM Signed Subjective HPI Nontoxic-appearing [...] URI wi (more content not included)... Normal [facility] Pelvic w/ Transvaginalon Pelvic w/ Transvaginal [facility] Imaging Services [address] [place], [place] [address] Pelvic w/ Transvaginal MR#: [id number] Acct: [id number] Name: GABRIELLE COOPER Rep #: [id number] : 1995 F 29 From: Samir harris MD PCP: Dr. Lenore Meier MD Status: REG CLI Study: Pelvic w/ Transvaginal Date of Exam: 07/21/24 Exam# [id number] Ordering Dr: Diane Vasquez VOICE TEACHER VOICE TEACHER -C PROCEDURE: PELVIC W/ TRANSVAGINAL REASON FOR [...] 2.5 cm right ovarian cyst. Reading Location: [place] [address] CC: BELLA Vasquez; Dr. Lenore Meier MD [employer]eter: Signed Normal [facility] Absolute lymphocyte countOrd ered By: Lenore Meier on 06-30-2024 Lymphocytes Auto (Unsp spec) [#/Vol] 2.54 10*3/uL 0.83-4.51 [facility] Absolute neutrophil countOrd ered By: Lenore Meier on 06-30-2024 Neutrophils (Bld) [#/Vol] 9.0 10*3/uL High 2.0-7.7 [facility] Automated lymphocyte count a s percentage of total leukocytesOrdered By: Lenore Meier on 06-30-2024 Lymphocytes/100 WBC Auto (Unsp spec) 19.8 % 19-41 [facility] Basophil percentageOrdered B y: Lenore Meier on 06-30-2024 Basophils/100 WBC (Bld) 0.8 % 0-1 [facility] CBC W/Diff, Automatedon 06-19 Absolute Lymph 2.54 X10 3/uL Normal 0.83-4.51 [facility] Comment on above: Performed By: #### L 503.6030, L503.6550, L100.0100 #### [facility] [address] [place], [address] Absolute Neut 9.0 X10 3/uL High 2.0-7.7 [facility] Comment on above: Performed By: #### L 503.6030, L503.6550, L100.0100 #### [facility] [address] [place], [address] Basophils/100 WBC (Bld) 0.8 % Normal 0-1 [facility] Comment on above: Performed By: #### L 503.6030, L503.6550, L100.0100 #### [facility] [address] [place], [address] Eosinophils/100 WBC (Bld) 3.3 % Normal 0-5 [facility] Comment on above: Performed By: #### L 503.6030, L503.6550, L100.0100 #### [facility] [address] [place], [address] Erythrocyte distribution width (RBC) [Ratio] 13.9 % Normal 11.6-14.6 [facility] Comment on above: Performed By: #### L 503.6030, L503.6550, L100.0100 #### [facility] [address] [place], [address] Hematocrit (Bld) [Volume fraction] 40.1 % Normal 37-47 [facility] Comment on above: Performed By: #### L 503.6030, L503.6550, L100.0100 #### [facility] [address] [place], [address] Hemoglobin (Bld) [Mass/Vol] 13.1 g/dL Normal 12.0-15.0 [facility] Comment on above: Performed By: #### L 503.6030, L503.6550, L100.0100 #### [facility] [address] [place], [address] IG% 0.500 Normal 0.0-0.9 [facility] Comment on above: Result Comment: IG% - Immature Granulocytes (promyelocytes, myelocytes and metamyelocytes) > 1% indicates that a LEFT SHIFT is Present. Performed By: #### L 503.6030, L503.6550, L100.0100 #### [facility] [address] [place], [address] Lymphocytes/100 WBC (Bld) 19.8 % Normal 19-41 [facility] Comment on above: Performed By: #### L 503.6030, L503.6550, L100.0100 #### [facility] [address] [place], [address] MCH (RBC) [Entitic mass] 28.2 pg Normal 27.0-32.0 [facility] Comment on above: Performed By: #### L 503.6030, L503.6550, L100.0100 #### [facility] [address] [place], [address] MCHC (RBC) [Mass/Vol] 32.7 g/dL Normal 32-36 [facility] Comment on above: Performed By: #### L 503.6030, L503.6550, L100.0100 #### [facility] [address] [place], [address] MCV (RBC) [Entitic vol] 86.2 fL Normal 81-99 [facility] Comment on above: Performed By: #### L 503.6030, L503.6550, L100.0100 #### [facility] [address] [place], [address] Monocytes/100 WBC (Bld) 5.7 % Normal 0-10 [facility] Comment on above: Performed By: #### L 503.6030, L503.6550, L100.0100 #### [facility] [address] [place], [address] Neutrophils/100 WBC (Bld) 69.9 % Normal 47-70 [facility] Comment on above: Performed By: #### L 503.6030, L503.6550, L100.0100 #### [facility] [address] [place], [address] Nucleated RBC (Bld) [#/Vol] 0 10*3/uL Normal 0-5 [facility] Comment on above: Performed By: #### L 503.6030, L503.6550, L100.0100 #### [facility] [address] [place], [address] Platelet mean volume (Bld) [Entitic vol] 9.9 fL Normal 6.2-12.0 [facility] Comment on above: Performed By: #### L 503.6030, L503.6550, L100.0100 #### [facility] [address] [place], [address] Platelets (Bld) [#/Vol] 407 10*3/uL Normal 150-450 [facility] Comment on above: Performed By: #### L 503.6030, L503.6550, L100.0100 #### [facility] [address] [place], [address] RBC (Bld) [#/Vol] 4.65 10*6/uL Normal 4.2-5.4 [facility] Comment on above: Performed By: #### L 503.6030, L503.6550, L100.0100 #### [facility] [address] [place], [address] RDW SD 44.0 fl High 35.1-43.9 [facility] Comment on above: Performed By: #### L 503.6030, L503.6550, L100.0100 #### [facility] [address] [place], [address] WBC (Bld) [#/Vol] 12.8 10*3/uL High 4.4-11.0 [facility] Comment on above: Performed By: #### L 503.6030, L503.6550, L100.0100 #### [facility] [address] [place], [address] Calculated total iron bindin g capacityOrdered By: Lenore Meier on 06-30-2024 Total Iron Binding Capacity 320 ug/dL 250-450 [facility] Eosinophil percentageOrdered By: Efewongbe Zunildae on 06-30-2024 Eosinophils/100 WBC (Bld) 3.3 % 0-5 [facility] Erythrocyte distribution wid th ratioOrdered By: adamaris Meier on 06-30-2024 Erythrocyte distribution width (RBC) [Ratio] 13.9 % 11.6-14.6 [facility] Erythrocyte distribution wid th standard deviationOrdered By: [facility] Rutherfordsteff on 06-30-2024 Erythrocyte distribution width (RBC) [Entitic vol] 44.0 fL High 35.1-43.9 [facility] Erythrocyte distribution width (RBC) [Ratio] 44.0 fl High 35.1-43.9 [facility] Ferritinon 06-30-2024 Ferritin [Mass/Vol] 94 ng/mL Normal 22-378 [facility] Comment on above: Performed By: #### L 7000.0700, M600.5000, M100.637, M7400.3302, M100.6796 #### [facility] [address] [place], [place], [address] Hematocrit Auto (Bld) [Volum e fraction]Ordered By: [facility] Krishpiasteff on 06-30-2024 Hematocrit (Bld) [Volume fraction] 40.1 % 37-47 [facility] Hemoglobin measurementOrdere d By: josehillsdiana Rutherfordpiasteff on 06-30-2024 Hemoglobin (Bld) [Mass/Vol] 13.1 g/dL 12.0-15.0 [facility] Immature granulocytes/100 WB C Auto (Bld)Ordered By: josehillsdiana Rutherfordsteff on 06-30-2024 Immature granulocytes/100 WBC (Bld) 0.500 % 0.0-0.9 [facility] Comment on above: IG% - Immature Granu locytes (promyelocytes, myelocytes and metamyelocytes) > 1% indicates that a LEFT SHIFT is Present. Internal Medicine Office Vis paco 06-30-2024 Internal Medicine Office Visit [facility] [place], [place] [address] OFFICE VISIT Date of Service: 06/30/24 MR#: [id number] Acct: [id number] Name: GABRIELLE COOPER Rep #: [id number] : 1995 Provider: Dr. Lenore chauhan MD Age/Sex: 29/F Location[place] [facility] Status: Signed Intake Vital Signs 03/02/24 12:09 [...] rash 06/1906/30/24 Rx topical cream #453.6 grams PFS Medical History (Updated 06/30/24 @ 16:37 by [...] family current occupational status: employed current occupation: [employer] Smoking Status: Current every day smoker (Patient [...] wheezing Cardi (more content not included)... Normal [facility] Iron (Unsp spec) [Mass/Mass] Ordered By: Lenore Meier on 06-30-2024 Iron [Mass/Vol] 68 ug/dL 50-170 [facility] Iron measurement (mass/mass) Ordered By: Lenore Meier on 06-30-2024 Iron (Unsp spec) [Mass/Mass] 68 ug/dL 50-170 [facility] Iron saturation [Mass fracti on]Ordered By: Lenore Meier on 06-30-2024 Iron Saturation 21.0 % 13-59 [facility] Iron+Iron Binding Capacityon 06-30-2024 Iron [Mass/Vol] 68 ug/dL Normal 50-170 [facility] Comment on above: Performed By: #### L 503.6030, L503.6550, L100.0100 #### [facility] [address] [place], [address] IRON SATURATION 21.0 Normal 13-59 [facility] Comment on above: Performed By: #### L 503.6030, L503.6550, L100.0100 #### [facility] [address] [place], [address] TIBC 320 ug/dL Normal 250-450 [facility] Comment on above: Performed By: #### L 503.6030, L503.6550, L100.0100 #### [facility] [address] [place], [address] UIBC 252 ug/dL Normal 228-428 [facility] Comment on above: Performed By: #### L 503.6030, L503.6550, L100.0100 #### [facility] [place], [address] Lymphocytes Auto (Unsp spec) [#/Vol]Ordered By: Lenore Meier on 06-30-2024 Lymphocytes (Bld) [#/Vol] 2.54 10*3/uL 0.83-4.51 [facility] Lymphocytes/100 WBC Auto (Un sp spec)Ordered By: Lenore Meier on 06-30-2024 Lymphocytes/100 WBC (Bld) 19.8 % 19-41 [facility] MCV (mean corpuscular volume ) determinationOrdered By: Lenore Meier on 06-30-2024 MCV (RBC) [Entitic vol] 86.2 fL 81-99 [facility] Mean corpuscular hemoglobin (MCH) determinationOrdered By: Lenore Meier on 06-30-2024 MCH (RBC) [Entitic mass] 28.2 pg 27.0-32.0 [facility] Mean corpuscular hemoglobin concentration (MCHC) determinationOrdered By: Lenore Meier on 06-30-2024 MCHC (RBC) [Mass/Vol] 32.7 g/dL 32-36 [facility] Mean platelet volume determi nationOrdered By: Lenore Meier on 06-30-2024 Platelet mean volume (Bld) [Entitic vol] 9.9 fL 6.2-12.0 [facility] Monocyte percentageOrdered B y: Lenore Meier on 06-30-2024 Monocytes/100 WBC (Bld) 5.7 % 0-10 [facility] Neutrophil percentageOrdered By: Lenore Meier on 06-30-2024 Neutrophils/100 WBC (Bld) 69.9 % 47-70 [facility] No Panel InformationOrdered By: Lenore Meier on 06-30-2024 Unsaturated Iron Binding Capacity 252 ug/dL 228-428 [facility] Nucleated red blood cell per centageOrdered By: Lillianadiana Rutherfordpiasteff on 06-30-2024 Nucleated RBC/100 WBC (Bld) [Ratio] 0 % 0-5 [facility] Platelet countOrdered By: Madina Meier on 06-30-2024 Platelets (Bld) [#/Vol] 407 10*3/uL 150-450 [facility] RBC Auto (Bld) [#/Vol]Ordere d By: Lenore Meier on 06-30-2024 RBC (Bld) [#/Vol] 4.65 10*6/uL 4.2-5.4 [facility] Serum or plasma ferritin filipe surement (mass/volume)Ordered By: Lenore Krishpiasteff on 06-30-2024 Ferritin [Mass/Vol] 94 ng/mL 22-378 [facility] Serum or plasma iron saturat ion measurement (mass fraction)Ordered By: Lenore Krishnino on 06-30-2024 Iron saturation [Mass fraction] 21.0 % 13-59 [facility] White blood cell (WBC) count Ordered By: Lenore Krishpiasteff on 06-30-2024 WBC (Bld) [#/Vol] 12.8 10*3/uL High 4.4-11.0 [facility] Gastroenterology Visit Repor ton 05-07-2024 Gastroenterology Visit Report [facility]enterology [address] [place] [address] OFFICE VISIT Date of Service: 05/07/24 MR#: [id number] Acct: [id number] Name: GABRIELLE COOPER Rep #: [id number] : 1995 Provider: AKI Seaman Age/Sex: 28/F Location: [facility] Status: Signed Intake Vital Signs 01/28/24 09:29 [...] foul smelly and hard. Continues omeprazole daily. [facility] Medical History COVID-19 Rash Thyroid disease Low [...] History current occupational status: employed current occupation: [employer] Smoking Status: Current every day smoker (Patient [...] presents to the office today for f/u. [facility] ED 9.2.14; abd pain and dark stool. normal work up. CT abd/pelvis 9.2.24;CT abdomen pelvis 9..24; Possible hydrosalpinx on the right. Otherwise no acute disease. Recommend pelvic ultrasound. BGI established 10.15.24 w/ abd/epigastric pain and pressure for one month. EGD 03.02.24; - Normal esophagus. - Bilious gastric fluid. - Erythematous mucosa in the gastric body. Biopsied. - Erythematous duodenopathy. GES 04.12.24; 53 minutes normal OV 1.17.25 Pt has [...] Appearance: average body habitus and well nourished [facility] Head: normal to inspection Ears: hearing grossly [...] alert Ex (more content not included)... Normal [facility] Absolute neutrophil countOrd ered By: Kathy Welsh on 05-06-2024 Neutrophils (Bld) [#/Vol] 7.8 10*3/uL High 2.0-7.7 [facility] Albumin to globulin ratioOrd ered By: Kathy [facility] on 05-06-2024 Albumin/Globulin [Mass ratio] 0.9 {ratio} 0.9-2.4 [facility] Basophil percentageOrdered B y: Zebulun Beam on 05-06-2024 Basophils/100 WBC (Bld) 0.8 % 0-1 [facility] Bilirubin, totalOrdered By: Zebulun Beam on 05-06-2024 Bilirubin [Mass/Vol] 0.10 mg/dL Low 0.20-1.00 [facility] Comment on above: For patients on eltr ombopag therapy, use of Dimension [place] TBIL is not recommended. Blood urea nitrogen (BUN)/cr eatinine ratioOrdered By: Zebulun Beam on 05-06-2024 Urea nitrogen/Creatinine [Mass ratio] 18.2 mg/mg 10-20 [facility] CBC W/Diff, Automatedon 04-21 Absolute Lymph 4.60 X10 3/uL High 0.83-4.51 [facility] Comment on above: Performed By: #### L 7000.0700, M600.5000, M100.637, M7400.3302, M100.6796 #### [facility] [address] [place], [address] Absolute Neut 7.8 X10 3/uL High 2.0-7.7 [facility] Comment on above: Performed By: #### L 7000.0700, M600.5000, M100.637, M7400.3302, M100.6796 #### [facility] [address] [place], [address] Basophils/100 WBC (Bld) 0.8 % Normal 0-1 [facility] Comment on above: Performed By: #### L 7000.0700, M600.5000, M100.637, M7400.3302, M100.6796 #### [facility] [address] [place], [address] Eosinophils/100 WBC (Bld) 3.1 % Normal 0-5 [facility] Comment on above: Performed By: #### L 7000.0700, M600.5000, M100.637, M7400.3302, M100.6796 #### [facility] [address] [place], [address] Erythrocyte distribution width (RBC) [Ratio] 13.6 % Normal 11.6-14.6 [facility] Comment on above: Performed By: #### L 7000.0700, M600.5000, M100.637, M7400.3302, M100.6796 #### [facility] [address] [place], [address] Hematocrit (Bld) [Volume fraction] 37.8 % Normal 37-47 [facility] Comment on above: Performed By: #### L 7000.0700, M600.5000, M100.637, M7400.3302, M100.6796 #### [facility] [address] [place], [address] Hemoglobin (Bld) [Mass/Vol] 12.3 g/dL Normal 12.0-15.0 [facility] Comment on above: Performed By: #### L 7000.0700, M600.5000, M100.637, M7400.3302, M100.6796 #### [facility] [address] [place], [address] IG% 0.200 Normal 0.0-0.9 [facility] Comment on above: Result Comment: IG% - Immature Granulocytes (promyelocytes, myelocytes and metamyelocytes) > 1% indicates that a LEFT SHIFT is Present. Performed By: #### L 7000.0700, M600.5000, M100.637, M7400.3302, M100.6796 #### [facility] [address] [place], [address] Lymphocytes/100 WBC (Bld) 33.7 % Normal 19-41 [facility] Comment on above: Performed By: #### L 7000.0700, M600.5000, M100.637, M7400.3302, M100.6796 #### [facility] [address] [place], [address] MCH (RBC) [Entitic mass] 27.6 pg Normal 27.0-32.0 [facility] Comment on above: Performed By: #### L 7000.0700, M600.5000, M100.637, M7400.3302, M100.6796 #### [facility] [address] [place], [address] MCHC (RBC) [Mass/Vol] 32.5 g/dL Normal 32-36 [facility] Comment on above: Performed By: #### L 7000.0700, M600.5000, M100.637, M7400.3302, M100.6796 #### [facility] [address] [place], [address] MCV (RBC) [Entitic vol] 84.9 fL Normal 81-99 [facility] Comment on above: Performed By: #### L 7000.0700, M600.5000, M100.637, M7400.3302, M100.6796 #### [facility] [address] [place], [address] Monocytes/100 WBC (Bld) 5.2 % Normal 0-10 [facility] Comment on above: Performed By: #### L 7000.0700, M600.5000, M100.637, M7400.3302, M100.6796 #### [facility] [address] [place], [address] Neutrophils/100 WBC (Bld) 57.0 % Normal 47-70 [facility] Comment on above: Performed By: #### L 7000.0700, M600.5000, M100.637, M7400.3302, M100.6796 #### [facility] [address] [place], [address] Nucleated RBC (Bld) [#/Vol] 0 10*3/uL Normal 0-5 [facility] Comment on above: Performed By: #### L 7000.0700, M600.5000, M100.637, M7400.3302, M100.6796 #### [facility] [address] [place], [address] Platelet mean volume (Bld) [Entitic vol] 9.7 fL Normal 6.2-12.0 [facility] Comment on above: Performed By: #### L 7000.0700, M600.5000, M100.637, M7400.3302, M100.6796 #### [facility] [address] [place], [address] Platelets (Bld) [#/Vol] 416 10*3/uL Normal 150-450 [facility] Comment on above: Performed By: #### L 7000.0700, M600.5000, M100.637, M7400.3302, M100.6796 #### [facility] [address] [place], [address] RBC (Bld) [#/Vol] 4.45 10*6/uL Normal 4.2-5.4 [facility] Comment on above: Performed By: #### L 7000.0700, M600.5000, M100.637, M7400.3302, M100.6796 #### [facility] [address] [place], [address] RDW SD 42.5 fl Normal 35.1-43.9 [facility] Comment on above: Performed By: #### L 7000.0700, M600.5000, M100.637, M7400.3302, M100.6796 #### [facility] [address] [place], [address] WBC (Bld) [#/Vol] 13.7 10*3/uL High 4.4-11.0 [facility] Comment on above: Performed By: #### L 7000.0700, M600.5000, M100.637, M7400.3302, M100.6796 #### [facility] [address] [place], [address] Carbon dioxide measurementOr dered By: Zebulun Beam on 05-06-2024 CO2 [Moles/Vol] 26.0 mmol/L 21.0-32.0 [facility] Chloride measurementOrdered By: Zebulun Beam on 05-06-2024 Chloride [Moles/Vol] 107 mmol/L 98-107 [facility] Comprehensive Metabolic Prof ilon 05-06-2024 Albumin [Mass/Vol] 3.4 g/dL Normal 3.2-5.0 [facility] Comment on above: Performed By: #### L 7000.0700, M600.5000, M100.637, M7400.3302, M100.6796 #### [facility] [address] [place], [address] Albumin/Globulin [Mass ratio] 0.9 {ratio} Normal 0.9-2.4 [facility] Comment on above: Performed By: #### L 7000.0700, M600.5000, M100.637, M7400.3302, M100.6796 #### [facility] [address] [place], [address] ALK P 93 U/L Normal 45-117 [facility] Comment on above: Performed By: #### L 7000.0700, M600.5000, M100.637, M7400.3302, M100.6796 #### [facility] [address] [place], [address] ALT [Catalytic activity/Vol] 15 U/L Normal 13-56 [facility] Comment on above: Performed By: #### L 7000.0700, M600.5000, M100.637, M7400.3302, M100.6796 #### [facility] [address] [place], [address] AST [Catalytic activity/Vol] 12 U/L Low 15-37 [facility] Comment on above: Performed By: #### L 7000.0700, M600.5000, M100.637, M7400.3302, M100.6796 #### [facility] [address] [place], [address] Bilirubin [Mass/Vol] 0.10 mg/dL Low 0.20-1.00 [facility] Comment on above: Result Comment: For patients on eltrombopag therapy, use of Dimension [place] TBIL is not recommended. Performed By: #### L 7000.0700, M600.5000, M100.637, M7400.3302, M100.6796 #### [facility] [address] [place], [address] BUN/CRE 18.2 RATIO Normal 10-20 [facility] Comment on above: Performed By: #### L 7000.0700, M600.5000, M100.637, M7400.3302, M100.6796 #### [facility] [address] [place], [address] CA,Total 9.1 mg/dL Normal 8.5-10.1 [facility] Comment on above: Performed By: #### L 7000.0700, M600.5000, M100.637, M7400.3302, M100.6796 #### [facility] [address] [place], [address] Chloride [Moles/Vol] 107 mmol/L Normal 98-107 [facility] Comment on above: Performed By: #### L 7000.0700, M600.5000, M100.637, M7400.3302, M100.6796 #### [facility] [address] [place], [address] CO2 [Moles/Vol] 26.0 mmol/L Normal 21.0-32.0 [facility] Comment on above: Performed By: #### L 7000.0700, M600.5000, M100.637, M7400.3302, M100.6796 #### [facility] [address] [place], [address] Creatinine [Mass/Vol] 0.66 mg/dL Normal 0.55-1.02 [facility] Comment on above: Result Comment: The validity of the calculated GFR GFRAA in patients over 70 years has not been determined. Clinical correlation is essential. Performed By: #### L 7000.0700, M600.5000, M100.637, M7400.3302, M100.6796 #### [facility] [address] [place], [address] EST GFR - AA 137 mL/min Normal >60 [facility] Comment on above: Result Comment: Afri can [place] GFR Calc Performed By: #### L 7000.0700, M600.5000, M100.637, M7400.3302, M100.6796 #### [facility] [address] [place], [address] GAP 6 Normal 5-15 [facility] Comment on above: Performed By: #### L 7000.0700, M600.5000, M100.637, M7400.3302, M100.6796 #### [facility] [address] [place], [address] GFR/1.73 sq M.predicted among non-blacks MDRD (S/P/Bld) [Vol rate/Area] 113 mL/min/{1.73_m2} Normal >60 [facility] Comment on above: Result Comment: Non- GFR Calc Performed By: #### L 7000.0700, M600.5000, M100.637, M7400.3302, M100.6796 #### [facility] [address] [place], [address] Globulin (S) [Mass/Vol] 3.8 g/dL Normal 2.2-4.2 [facility] Comment on above: Performed By: #### L 7000.0700, M600.5000, M100.637, M7400.3302, M100.6796 #### [facility] [address] [place], [address] Glucose [Mass/Vol] 78 mg/dL Normal 74-106 [facility] Comment on above: Performed By: #### L 7000.0700, M600.5000, M100.637, M7400.3302, M100.6796 #### [facility] [address] [place], [address] Potassium [Moles/Vol] 3.8 mmol/L Normal 3.5-5.1 [facility] Comment on above: Performed By: #### L 7000.0700, M600.5000, M100.637, M7400.3302, M100.6796 #### [facility] [address] [place], [address] Sodium [Moles/Vol] 139 mmol/L Normal 136-145 [facility] Comment on above: Performed By: #### L 7000.0700, M600.5000, M100.637, M7400.3302, M100.6796 #### [facility] [address] [place], [address] T PROT 7.2 g/dL Normal 6.4-8.2 [facility] Comment on above: Performed By: #### L 7000.0700, M600.5000, M100.637, M7400.3302, M100.6796 #### [facility] [address] [place], [address] Urea nitrogen [Mass/Vol] 12 mg/dL Normal 7-18 [facility] Comment on above: Performed By: #### L 7000.0700, M600.5000, M100.637, M7400.3302, M100.6796 #### [facility] [address] [place], [address] Eosinophil percentageOrdered By: Siennan Beam on 05-06-2024 Eosinophils/100 WBC (Bld) 3.1 % 0-5 [facility] Erythrocyte distribution wid th ratioOrdered By: mireillejosee Beam on 05-06-2024 Erythrocyte distribution width (RBC) [Ratio] 13.6 % 11.6-14.6 [facility] Erythrocyte distribution wid th standard deviationOrdered By: [facility] Be[facility] on 05-06-2024 Erythrocyte distribution width (RBC) [Entitic vol] 42.5 fL 35.1-43.9 [facility] Estimated glomerular filtrat ion rate (GFR) AmericanOrdered By: Minbulun Beam on 05-06-2024 Estimated GFR (MDRD) Amer 137 mL/min >60 [facility] Comment on above: GFR Calc Glomerular filtration rate ( GFR) estimationOrdered By: Minbulun Beam on 05-06-2024 Estimated GFR (MDRD) Non-Af Amer 113 mL/min >60 [facility] Comment on above: Non- GFR Calc Glucose measurementOrdered B y: Kathy Beam on 05-06-2024 Glucose [Mass/Vol] 78 mg/dL 74-106 [facility] Hematocrit Auto (Bld) [Volum e fraction]Ordered By: Kathy Beam on 05-06-2024 Hematocrit (Bld) [Volume fraction] 37.8 % 37-47 [facility] Hemoglobin measurementOrdere d By: Flaviolun Beam on 05-06-2024 Hemoglobin (Bld) [Mass/Vol] 12.3 g/dL 12.0-15.0 [facility] Immature granulocytes/100 WB C Auto (Bld)Ordered By: Kathy Welsh on 05-06-2024 Immature granulocytes/100 WBC (Bld) 0.200 % 0.0-0.9 [facility] Comment on above: IG% - Immature Granu locytes (promyelocytes, myelocytes and metamyelocytes) > 1% indicates that a LEFT SHIFT is Present. Iron (Unsp spec) [Mass/Mass] Ordered By: Kathy Welsh on 05-06-2024 Iron [Mass/Vol] 24 ug/dL Low 50-170 [facility] Iron saturation [Mass fracti on]Ordered By: Kathy Welsh on 05-06-2024 Iron Saturation 5.7 % Low 15.0-55.0 [facility] Iron+Iron Binding Capacityon 05-06-2024 Iron [Mass/Vol] 24 ug/dL Low 50-170 [facility] Comment on above: Performed By: #### L 7000.0700, M600.5000, M100.637, M7400.3302, M100.6796 #### [facility] [address] [place], [address] IRON SATURATION 5.7 Low 15.0-55.0 [facility] Comment on above: Performed By: #### L 7000.0700, M600.5000, M100.637, M7400.3302, M100.6796 #### [facility] [address] [place], [address] TIBC 422 ug/dL Normal 250-450 [facility] Comment on above: Performed By: #### L 7000.0700, M600.5000, M100.637, M7400.3302, M100.6796 #### [facility] [address] [place], [address] Laboratory - Chemistry and C hemistry - challengeOrdered By: Kathy Welsh on 05-06-2024 AST [Catalytic activity/Vol] 12 U/L Low 15-37 [facility] Lymphocytes Auto (Unsp spec) [#/Vol]Ordered By: Zebulun Beam on 05-06-2024 Lymphocytes (Bld) [#/Vol] 4.60 10*3/uL High 0.83-4.51 [facility] Lymphocytes/100 WBC Auto (Un sp spec)Ordered By: Zebulun Beam on 05-06-2024 Lymphocytes/100 WBC (Bld) 33.7 % 19-41 [facility] MCV (mean corpuscular volume ) determinationOrdered By: Zebulun Beam on 05-06-2024 MCV (RBC) [Entitic vol] 84.9 fL 81-99 [facility] Mean corpuscular hemoglobin (MCH) determinationOrdered By: Zebulun Beam on 05-06-2024 MCH (RBC) [Entitic mass] 27.6 pg 27.0-32.0 [facility] Mean corpuscular hemoglobin concentration (MCHC) determinationOrdered By: Zebulun Beam on 05-06-2024 MCHC (RBC) [Mass/Vol] 32.5 g/dL 32-36 [facility] Mean platelet volume determi nationOrdered By: Zebulun Beam on 05-06-2024 Platelet mean volume (Bld) [Entitic vol] 9.7 fL 6.2-12.0 [facility] Monocyte percentageOrdered B y: Zebulun Beam on 05-06-2024 Monocytes/100 WBC (Bld) 5.2 % 0-10 [facility] Neutrophil percentageOrdered By: Zebulun Beam on 05-06-2024 Neutrophils/100 WBC (Bld) 57.0 % 47-70 [facility] Nucleated red blood cell per centageOrdered By: Zebulun Beam on 05-06-2024 Nucleated RBC/100 WBC (Bld) [Ratio] 0 % 0-5 [facility] Platelet countOrdered By: Ze bulun Beam on 05-06-2024 Platelets (Bld) [#/Vol] 416 10*3/uL 150-450 [facility] Potassium measurementOrdered By: Zebulun Beam on 05-06-2024 Potassium [Moles/Vol] 3.8 mmol/L 3.5-5.1 [facility] RBC Auto (Bld) [#/Vol]Ordere d By: Kathy Welsh on 05-06-2024 RBC (Bld) [#/Vol] 4.45 10*6/uL 4.2-5.4 [facility] Serum anion gap measurementO rdered By: Kathy Welsh on 05-06-2024 Anion gap [Moles/Vol] 6 mmol/L 5-15 [facility] Serum globulin measurementOr dered By: Kathy Welsh on 05-06-2024 Globulin (S) [Mass/Vol] 3.8 g/dL 2.2-4.2 [facility] Serum or plasma alanine yanez otransferase (ALT) measurementOrdered By: Kathy Welsh on 05-06-2024 ALT [Catalytic activity/Vol] 15 U/L 13-56 [facility] Serum or plasma albumin teo urement (mass/volume)Ordered By: Kathy Welsh on 05-06-2024 Albumin [Mass/Vol] 3.4 g/dL 3.2-5.0 [facility] Serum or plasma alkaline alberto sphatase measurementOrdered By: Flaviojosee Welsh on 05-06-2024 ALP [Catalytic activity/Vol] 93 U/L 45-117 [facility] Serum or plasma calcium teo urement (mass/volume)Ordered By: Kathy Welsh on 05-06-2024 Calcium [Mass/Vol] 9.1 mg/dL 8.5-10.1 [facility] Serum or plasma creatinine m easurement (mass/volume)Ordered By: Kathy Welsh on 05-06-2024 Creatinine [Mass/Vol] 0.66 mg/dL 0.55-1.02 [facility] Comment on above: The validity of the calculated GFR & GFRAA in patients over 70 years has not been determined. Clinical correlation is essential. Serum or plasma thyroxine (T 4) measurement (mass/volume)Ordered By: Kathy Welsh on 05-06-2024 T4 [Mass/Vol] 12.4 ug/dL 4.8-13.9 [facility] Serum or plasma urea nitroge n measurement (mass/volume)Ordered By: Kathy Beam on 05-06-2024 Urea nitrogen [Mass/Vol] 12 mg/dL 7-18 [facility] Sodium levelOrdered By: Flavio lucas Beam on 05-06-2024 Sodium [Moles/Vol] 139 mmol/L 136-145 [facility] T4 Total, Thyroxinon 025 T4 [Mass/Vol] 12.4 ug/dL Normal 4.8-13.9 [facility] Comment on above: Performed By: #### L 7000.0700, M600.5000, M100.637, M7400.3302, M100.6796 #### [facility] [address] [place], [address] TIBCOrdered By: Kathy Welsh on 05-06-2024 Total Iron Binding Capacity 422 ug/dL 250-450 [facility] TSH QnOrdered By: Kathy Patino am on 05-06-2024 Thyroid Stimulating Hormone (TSH) 2.640 uIU/mL 0.358-3.740 [facility] Thyroid Stim Hormone (TSH)on 05-06-2024 TSH 2.640 uIU/mL Normal 0.358-3.740 [facility] Comment on above: Performed By: #### L 7000.0700, M600.5000, M100.637, M7400.3302, M100.6796 #### [facility] [address] [place], [place], [address] Total proteinOrdered By: Simone Welsh on 05-06-2024 Protein [Mass/Vol] 7.2 g/dL 6.4-8.2 [facility] White blood cell (WBC) count Ordered By: Kathy Welsh on 05-06-2024 WBC (Bld) [#/Vol] 13.7 10*3/uL High 4.4-11.0 [facility] Gastric Emptying Studyon Gastric Emptying Study [facility] Imaging Services [address] [place], [place] [address] Gastric Emptying Study MR#: [id number] Acct: [id number] Name: GABRIELLE COOPER Rep #: [id number] : 1995 F 28 From: Thierno Mitchell PCP: Blanka Cerna Amalia, VOICE TEACHER-C Status: REG CLI Study: Gastric Emptying Study Date of Exam: 04/12/24 Exam# [id number] Ordering Dr: Keren Shields [id number] CLINICAL: 28-year-old female with history of epigastric [...] Damon DO at 10:24 EST , CC: [facility] Cerna; AKI Seaman Golf Stud Riveter: Signed Normal [facility] CNOVon 03-29-2024 CNOV Office Visit (UCWSTR ) GABRIELLE COOPER ([id number]) 1995 F Date Time Provider Department 03/29/24 2:00 PM BETO DOBSON [facility] During your visit today, we recorded the following information about you: Temperature Pulse Respiration Blood pressure 98.3 degrees 88/minute 16/minute 118/68 Weight 125.3 kg Gregorio Dobsonprudence Erwin PA-C 03/29/2024 2:42 PM Signed This note was created using NoteWriter. Subjective Gabrielle Cooper is a 28 year old female. HPI Presents with a chief complaint of right lower tooth pain over the past 4 days. She has had some drainage from it. She has had tooth infections previously. She does have a dental appointment in 2 days for [facility]. No fevers or chills. Review of [...] Augmentin. Follow-up with dentist. Patient agreeable. AKI Dunaway-C Allergies As of Date: 03/29/2024 Noted Allergy [...] 1 t (more content not included)... Normal [facility] Office Visit Reporton 2023 Office Visit Report [facility] [address] [place] [address] OFFICE VISIT Date of Service: 03/22/24 MR#: [id number] Acct: [id number] Patient: GABRIELLE COOPER Rep #: [id number] : 1995 Provider: AKI Zamudio Age/Sex: 28/F Location: [facility] Status: Signed Intake Vital Signs 03/02/24 12:09 Height 5 ft 7 in Intake Visit Reasons: PE NON DOT DRUG SCREEN/ DOMETIC Chief Complaint: Annual Allergies clindamycin Allergy (Verified 03/02/24 12:09) Rash Office Procedures [facility] Billing Sheet Testing Pre-Employment Drug Screen: Yes 03/24/24 0749 Date Agapito PRABHAKAR Cosigner Signature: Date (if applicable) CC: Normal [facility] PAP I-G w/rfx hrHPV-Aptimaon 03-11-2024 ADEQ Comment Normal . [facility] Comment on above: Order Comment: Speci men Comment: [id number] Comment: No. of containers..01 ThinPrep Vial Result Comment: Sati sfactory for evaluation. Endocervical and/or squamous metaplastic cells (endocervical component) are present. Performed By: #### L 7000.0700, M600.5000, M100.637, M7400.3302, M100.6796 #### [facility] [address] [place], [address] COMM . Normal . [facility] Comment on above: Order Comment: Speci men Comment: [id number] Comment: No. of containers..01 ThinPrep Vial Performed By: #### L 7000.0700, M600.5000, M100.637, M7400.3302, M100.6796 #### [facility] [address] [place], [place], [address] COMMENT Comment Normal . [facility] Comment on above: Order Comment: Speci men Comment: [id number] Comment: No. of containers..01 ThinPrep Vial Result Comment: This liquid based ThinPrep(R) pap test was screened with the use of an image guided system. Performed By: #### L 7000.0700, M600.5000, M100.637, M7400.3302, M100.6796 #### [facility] [address] [place], [place], [address] DIAG Comment Normal . [facility] Comment on above: Order Comment: Speci men Comment: [id number] Comment: No. of containers..01 ThinPrep Vial Result Comment: NEGA TIVE FOR INTRAEPITHELIAL LESION OR MALIGNANCY. Performed By: #### L 7000.0700, M600.5000, M100.637, M7400.3302, M100.6796 #### [facility] [address] [place], [address] HPV RFLX Comment Normal . [facility] Comment on above: Order Comment: Speci men Comment: [id number] Comment: No. of containers..01 ThinPrep Vial Result Comment: The HPV DNA reflex criteria were not met with this specimen result therefore, no HPV testing was performed. Performed at: [facility] [address] [id number] Pl[address] Captain: Elaine Lorenz MD, Phone: [phone] Performed By: #### L 7000.0700, M600.5000, M100.637, M7400.3302, M100.6796 #### [facility] [address] [place], [address] PAPSMR Comment Normal . [facility] Comment on above: Order Comment: Speci men Comment: [id number] Comment: No. of containers..01 ThinPrep Vial Result Comment: The Pap smear is a screening test designed to aid in the detection of premalignant and malignant conditions of the uterine cervix. It is not a diagnostic procedure and should not be used as the sole means of detecting cervical cancer. Both false-positive and false-negative reports do occur. Performed By: #### L 7000.0700, M600.5000, M100.637, M7400.3302, M100.6796 #### [facility] [address] [place], [place], [address] PERFORM Comment Normal . [facility] Comment on above: Order Comment: Speci men Comment: [id number] Comment: No. of containers..01 ThinPrep Vial Result Comment: Aleksander Duncan Director Of Sustainability Programs (ASCP) Performed By: #### L 7000.0700, M600.5000, M100.637, M7400.3302, M100.6796 #### [facility] [address] [place], [place], [address] Pelvic w/ Transvaginalon Pelvic w/ Transvaginal [facility] Imaging Services [address] [place] [address] Pelvic w/ Transvaginal MR#: [id number] Acct: [id number] Name: GABREILLE COOPER Rep #: [id number] : 1995 F 28 From: Raymundo erwin MD PCP: ANSELMO Irene, VOICE TEACHER-C Status: REG CLI Study: Pelvic w/ Transvaginal Date of Exam: 03/10/24 Exam# [id number] Ordering Dr: Diane Vasquez NP VOICE TEACHER -[id number] PROCEDURE: ULTRASOUND OF THE FEMALE PELVIS - [...] Signed: Raymundo Bo MD at 10:51 EST , CC: BELLA Vasquez; [facility] Cerna Golf Stud Riveter: Signed Normal [facility] EGD Reporton 03-02-2024 EGD Report [facility] Medical Records Department [address] [place] [address] EGD Report MR#: [id number] Acct: [id number] Name: GABRIELLE COOPER Rep #: [id number] : 1995 28 From: Kaleb Power DO PCP: ANSELMO Irene, NAYELIC Status:REG SDC Patient Name: Gabrielle Cooper Procedure Date: 03/02/2024 1:22 PM Date of : 1995 Age: 28 Procedure: Upper GI endoscopy Indications: Epigastric abdominal pain, Functional Dyspepsia, Failure to respond to medical treatment Providers: Kaleb Power DO Referring MD: Blanka Simmons, Supervisor [employer]-amalia Medicines: Monitored Anesthesia Care Patient Profile: This [...] pathology results. Procedure Code(s): --- Professional --- 68760, Esophagogastroduodenos copy, flexible, transoral; with biopsy, single or multiple CPT copyright 2021 [employer]. All rights reserved. The codes documented in this report are preliminary and upon bakery associate review may be revised to meet current compliance requirements. Kaleb Power DO 03/02/2024 1:46:12 PM This report has been signed electronically. Number of Addenda: 0 Note Initiated On: 03/02/2024 1:22 PM 03/02/24 1346 Date Kaleb Martin Signature: Date (if indicated) CC: [facility] [facility] VOICE TEACHER-C Blanka Cerna; Kaleb Power DO Date Dictated: 03/02/242 Date Transcribed: Golf Stud Riveter: LISSETT Signed Normal [facility] H Pylori (initial)on H Pylori (initial) -- ---- Patient Age/Sex Location Account Attending Physician ---- GABRIELLE COOPER / EN [id number] Kaleb Power DO ---- Specimen: [id number] Received: 03/12/24 Status: BIGG [place] Num: [id number] Spec Type: IMMUNO Subm Dr: Kaleb Power DO PHYSICIAN INSTITUTION [place] [address] SPECIMEN INFORMATION: Tissue Source: Duodenum biopsy Clinical Info: Abdominal pain Specimen Number: [id number] CPT code: 04019 METHODOLOGY: Deparaffinized sections of prefer/formalin-fixed tissue or PAP/DQ stained slides are incubated with monoclonal/polyclonal antibodies/oligonucleo tide probes. Localization is made via biotin free immunoperoxidase method. Appropriate controls are performed and reacted as expected. Results on target cell population are indicated in the following table: RESULTS: ANTIBODY / CLONE RESULT H Pylori (polyclonal) negative These tests were developed and their performance characteristics determined by [facility]. They may not have been cleared or approved by the U.S. Food and Drug Administration. The FDA has determined that such clearance or approval is not necessary. The above immunohistochemical/du alISH markers are ordered and reviewed by the Pathologist. INTERPRETATION: Duodenum, biopsy: Negative for Helicobacter pylori organisms. AM.mr 03/15/2024 Signed (signature on file) Dr. Rob Peralta, 03/15/24 1310 ---- Normal [facility] Comment on above: Performed By: #### L 7000.0700, M600.5000, M100.637, M7400.3302, M100.6796 #### [facility] [address] [facility] [place], [address] MR/POSTOP.[place] 03-02-2024 MR/POSTOP.[facility] Medical Records Department [address] [place] [address] Anesthesia Postop Eval I 03/02/24 1348 MR#: [id number] Acct: [id number] Name: GABRIELLE COOPER Rep #: [id number] : 1995 28 From: William Alston PCP: ANSELMO Irene, VOICE TEACHER-C Status:REG SDC Y Race: C Location: [place] [address] Anesthesia: Postop Eval I Current Vital Signs [...] 1 completed: Yes 03/02/24 1349 Date William Rodriguezignheather Signature: Date CC: Signed Normal [facility] MR/[id number] 03-02-2024 [facility] Medical Records Department [address] [place] [address] Anesthesia Postop Eval II 03/02/24 1624 MR#: [id number] Acct: [id number] Name: GABRIELLE COOPER Rep #: [id number] : 1995 28 From: Fredy Grant MD PCP: ANSELMO Irene, VOICE TEACHER-C Status:[facility] Y Race: C Location: [place] Anesthesia Postop [...] Anesthesia Complication: No 03/02/24 1625 Date Fredy Rodriguezignheather Signature: Date CC: Signed Normal [facility] Machine Precision Etcher Office Visit Reporton 03-02-2024 Machine Precision Etcher Office Visit Report [facility] [address], [address] [place] [address] OFFICE VISIT Date of Service: 03/02/24 MR#: [id number] Acct: [id number] Name: GABRIELLE COOPER Rep #: [id number] : 1995 Provider: BELLA atkins Age/Sex: 28/F [place] [facility]: Signed Intake Vital Signs 01/28/24 09:29 03/02/24 10:04 03/02/24 10:10 Height 5 ft 7 in 5 ft 7 in 5 ft 7 in Weight: 267 lb BMI 41.8 BP 126/82 H Intake Visit Reasons: Annual (COOKER SYRUP) Chief Complaint: Annual Admin Asst Required: No Is patient in pain?: No [...] #84 tabs 03/02/24 03/02/24 Rx mg tablet (Jacquelin) Is last menstrual period known: Yes Last Menstrual Period: 01/24/24 Post menopausal: No Patient : No : No Control Method: O[facility] Medical History (Updated 03/02/24 @ 10:30 by Diane Vasquez VOICE TEACHER, VOICE TEACHER-C) COVID-19 Rash Thyroid disease Low iron Heartburn [...] History current occupational status: employed current occupation: [employer] Smoking Status: Current some day smoker tobacco [...] oriented to person and oriented to place HENNV Head: normal to inspection Neck Neck: normal [...] Cervix: normal (more content not included)... Normal [facility] ,Urineon 03-02-2024 Beta HCG ( test) Ql (U) Negative Normal [facility] Comment on above: Result Comment: Very dilute urine specimens, as indicated by a low specific gravity, may not contain patient support representative levels of hCG. If is still suspected, a first morning urine specimen should be collected 48 hours later and tested. Performed By: #### L 7000.0700, M600.5000, M100.637, M7400.3302, M100.6796 #### [facility] [address] [place], [address] Surgery Specimen Level Toan 03-02-2024 Surgery Specimen Level IV ---- Patient Age/Sex Location Account Attending Physician ---- GABRIELLE COOPER EN [id number] Kaleb Power DO ---- Specimen: [id number] Received: 03/02/24 Status: BIGG [place] Num: [id number] Spec Type: EGD BIOPSY Subm Dr: Kaleb Power DO HEAD OPERATION: EGD with biopsy PRE-OP DIAGNOSIS: Abdominal pain TISSUE SUBMITTED: Duodenum biopsy ---- MICROSCOPIC DIAGNOSIS Duodenum, biopsy: Fragments of duodenal mucosa, no pathologic diagnosis. Fragments of gastric mucosa with mild chronic inflammation. See comment. 03/04/2024 COMMENT Immunohistochemistry for H.pylori can be [...] specimen is totally submitted in one cassette. 03/03/2024 TC:3 [facility]:[id number] ---- Patient Age/Sex Location Account Attending Physician ---- GABRIELLE COOPER / EN [id number] Kaleb Power DO ---- Signed (signature on file) Dr. Bharat Bejarano MD 03/04/24 1113 ---- Normal [facility] Comment on above: Performed By: #### P SUIV #### [facility] [address] [place], [address] CNOVon 02-06-2024 CNOV Office Visit (UCWSTR ) GABRIELLE COOPER ([id number]) 1995 F Date Time Provider Department 02/06/24 1:30 PM ARDEN HANNA WSTR During your visit today, we recorded the following information about you: Temperature Pulse Respiration Blood pressure 98.1 degrees 97/minute 16/minute 152/82 Weight Last Period 118.4 kg 01/21/24 Arden Hanna, SOL[employer]GY SYSTEM INSTALLER HELPER.COMPLIANCE TESTING ANALYST 02/06/2024 1:29 PM Signed This note was created using [employer]Mission[employer]. Subjective Gabrielle Cooper is a 28 year [...] Date Reviewed: 02/06/2024 Reviewed by: Arden Hanna APRN.COMPLIANCE TESTING ANALYST - Fully Assessed Reason for Visit: Warm [...] Status:Closed by ARDEN HANNA on 02/06/24 Normal [facility] EMERGENCY REPORTon EMERGENCY REPORT [facility] EMERGENCY ROOM REPORT NAME ACCOUNT SEX AGE ADMIT DISCHARGE PT MED. RECORD# NUMBER DATE DATE TYPE GABRIELLE COOPER [id number] F 28 12/18/23 12/18/23 3 R 96052 ROOM: ER DATE OF : 1995 DICTATING [...] Phillip Boykin MD 12/18/23 18:57 JOB #: [id number] Transcribed By: kaia 12/19/23 08:50 Electronically signed by: DAVID Boykin M.D. 12/25/23 07:12 Page 2 of 2 GABRIELLE COOPER Emergency Room Report Normal [facility] C-REACTIVE PROTEINon 024 CRP 1.64 mg/dl High 0.00 - 0.90 [facility] Comment on above: Performed By: #### 2 48213 #### [facility],[address] [place] [address] CBC + DIFFon 12-18-2023 Baso # 0.02 x10EE3/UL Normal 0.00 - 0.10 [facility] Comment on above: Performed By: #### 2 78187 #### [facility],[address] [place] [address] 42452 Basophils/100 WBC (Bld) 0.1 % Normal 0.0 - 2.0 [facility] Comment on above: Performed By: #### 2 92997 #### [facility],[address] [place] [address] 69445 CBC + DIFF Normal [facility] Comment on above: Result Comment: CBC- COMPLETE BLOOD COUNT Performed By: #### 2 03587 #### [facility],[address] [place] [address] 45673 EO # 0.16 x10EE3/UL Normal 0.00 - 0.50 [facility] Comment on above: Performed By: #### 2 57980 #### [facility],[address] [place] [address] 70522 Eosinophils/100 WBC (Bld) 1.3 % Normal 0.0 - 7.0 [facility] Comment on above: Performed By: #### 2 83329 #### [facility],[address] [place] [address] 60143 Erythrocyte distribution width (RBC) [Ratio] 14.7 % Normal 12.0 - 15.6 [facility] Comment on above: Performed By: #### 2 21466 #### [facility],[address] [place] [address] 23274 Hematocrit (Bld) [Volume fraction] 35.7 % Normal 34.0 - 46.0 [facility] Comment on above: Performed By: #### 2 72019 #### [facility],[address] [place] [address] 67137 Hemoglobin (Bld) [Mass/Vol] 12.2 g/dL Normal 12.0 - 16.0 [facility] Comment on above: Performed By: #### 2 17707 #### [facility],[address] [place] [address] Lymph # 2.84 x10EE3/UL High 0.80 - 2.80 [facility] Comment on above: Performed By: #### 2 97790 #### [facility],[address] [place] [address] Lymphocytes/100 WBC (Bld) 22.8 % Normal 20.0 - 45.0 [facility] Comment on above: Performed By: #### 2 43597 #### [facility],[address] [place], [place] [phone] MANUAL DIFF N/A Normal [facility] Comment on above: Performed By: #### 2 88870 #### [facility],[address] [place] [address] MCH (RBC) [Entitic mass] 28 pg Normal 27 - 33 [facility] Comment on above: Performed By: #### 2 80177 #### [facility],[address] [place], [place] [address] MCHC 34 X10 3 Normal 32 - 36 [facility] Comment on above: Performed By: #### 2 85215 #### [facility],[address] [place] [address] 50640 MCV (RBC) [Entitic vol] 83 fL Normal 80 - 99 [facility] Comment on above: Performed By: #### 2 71466 #### [facility],[address] [place], [place] [address] [place] # 0.47 x10EE3/UL Normal 0.20 - 1.00 [facility] Comment on above: Performed By: #### 2 88574 #### [facility],[address] [place] [address] 50580 MONOS % 3.8 % Normal 0.0 - 10.0 [facility] Comment on above: Performed By: #### 2 82034 #### [facility],[address] [place] [address] 87101 Morphology Everardo (Bld) [Interp] N/A Normal [facility] Comment on above: Performed By: #### 2 04841 #### [facility],[address] [place] [address] 70042 Neut # 8.98 x10EE3/UL High 1.50 - 7.10 [facility] Comment on above: Performed By: #### 2 31060 #### [address] [address] Neutrophils/100 WBC (Bld) 72.0 % Normal 46.0 - 76.0 [facility] Comment on above: Performed By: #### 2 03447 #### [facility],[address] [place] [address] 07992 PLATELET 407 x10EE3/UL Normal 150 - 450 [facility] Comment on above: Performed By: #### 2 65033 #### [facility],[address] [place] [address] 33208 Platelet mean volume (Bld) [Entitic vol] 7.6 fL Normal 6.6 - 10.5 [facility] Comment on above: Result Comment: AUTO MATED DIFFERENTIAL Performed By: #### 2 90715 #### [facility],[address] [place] [address] 06590 RBC 4.31 x 10EE6/UL Normal 4.10 - 5.30 [facility] Comment on above: Performed By: #### 2 11294 #### [facility],[address] [place] [address] 52526 WBC 12.5 x 10EE3/UL High 4.5 - 10.8 [facility] Comment on above: Performed By: #### 2 61877 #### [facility],[address] [place] [address] 91648 CHEST 2 VIEWSon 12-18-2023 CHEST 2 VIEWS [place] [id number] Patient: GABRIELLE COOPER Phone#: : 1995 Age: 28 Gender: F Pt. Type: ER Account: [id number] Location: 052 Ordering: PHILLIP BOYKIN Exam Date: 12/18/2023/16:53 Family Phys: BLANKA CERNA Charge Code: 360052 Physician: [place] Order #: [id number] Dose#: PROCEDURE: X-RAY CHEST 2 VIEWS COMPARISON: [...] Sal MD on 12/18/2023 at 17:13 Normal [facility] CMP with eGFRon 12-18-2023 AGE 28 years Normal [facility] Comment on above: Performed By: #### 2 66741 #### [facility],[address] [place] [address] 80016 Albumin [Mass/Vol] 3.4 g/dL Normal 3.4 - 5.0 [facility] Comment on above: Performed By: #### 2 44320 #### [facility],[address] [place] [address] 32062 Albumin/Globulin [Mass ratio] 0.9 {ratio} Normal 0.9 - 1.6 [facility] Comment on above: Performed By: #### 2 22308 #### [facility],[address] [place] [address] 62612 ALK PHOS 92 U/L Normal 46 - 116 [facility] Comment on above: Performed By: #### 2 15306 #### [facility],[address] [place] [address] 33355 ALT [Catalytic activity/Vol] 18 U/L Normal 16 - 63 [facility] Comment on above: Performed By: #### 2 57391 #### [facility],[address] [place] [address] 35880 Anion gap [Moles/Vol] 15 mmol/L Normal 10 - 20 [facility] Comment on above: Performed By: #### 2 19066 #### [facility],[address] [place] [address] 95786 AST [Catalytic activity/Vol] 14 U/L Normal 13 - 39 [facility] Comment on above: Performed By: #### 2 65815 #### [facility],[address] [place] [address] 70419 B/C RATIO 11 ratio Normal 0 - 30 [facility] Comment on above: Performed By: #### 2 04490 #### [facility],[address] [place] [address] 40732 Bilirubin [Mass/Vol] 0.4 mg/dL Normal 0.2 - 1.0 [facility] Comment on above: Performed By: #### 2 60769 #### [facility],[address] [place] [address] 46760 Calcium [Mass/Vol] 9.1 mg/dL Normal 8.5 - 10.1 [facility] Comment on above: Performed By: #### 2 80532 #### [facility],[address] [place] [address] 51800 Chloride [Moles/Vol] 105 mmol/L Normal 98 - 107 [facility] Comment on above: Performed By: #### 2 84401 #### [facility],[address] [place] [address] 33473 CMP with eGFR Normal [facility] Comment on above: Result Comment: COMP REHENSIVE METABOLIC PANEL Performed By: #### 2 78378 #### [facility],[address] [place] [address] 29605 CO2 [Moles/Vol] 22.7 mmol/L Normal 21.0 - 32.0 [facility] Comment on above: Performed By: #### 2 41493 #### [facility],[address] [place], [place] [address] Creatinine [Mass/Vol] 0.74 mg/dL Normal 0.55 - 1.02 [facility] Comment on above: Performed By: #### 2 51146 #### [facility],[address] [place], [place] [address] GFR/1.73 sq M.predicted among non-blacks MDRD (S/P/Bld) [Vol rate/Area] mL/min/{1.73_m2} Normal 60 - 999 [facility] Comment on above: Performed By: #### 2 43730 #### [facility],[address] [place], [place] [phone] Result Comment: ACCO RDING TO THE NATIONAL KIDNEY DISEASE EDUCATION PROGRAM(NKDE), A NORMAL eGFR IS A VALUE GREATER THAN OR EQUAL TO 60 ML/MIN/1.73 SQ METERS. CHRONIC KIDNEY DISEASE: <60mL/MIN/1.73 SQ METERS KIDNEY FAILURE: <15mL/MIN/1.73 SQ METERS THIS TEST SHOULD ONLY BE USED FOR PATIENTS 18 YEARS OF AGE AND OLDER. Globulin (S) [Mass/Vol] 3.6 g/dL Normal 1.5 - 3.8 [facility] Comment on above: Performed By: #### 2 52292 #### [facility],[address] [place] [address] 98051 Glucose [Mass/Vol] 89 mg/dL Normal 74 - 106 [facility] Comment on above: Performed By: #### 2 68552 #### [facility],[address] [place] [address] 12021 Potassium [Moles/Vol] 3.6 mmol/L Normal 3.5 - 5.1 [facility] Comment on above: Performed By: #### 2 62336 #### [facility],[address] [place] [address] 90613 Protein [Mass/Vol] 7.0 g/dL Normal 6.4 - 8.2 [facility] Comment on above: Performed By: #### 2 78804 #### [facility],[address] [place] [address] 81118 Sodium [Moles/Vol] 139 mmol/L Normal 136 - 145 [facility] Comment on above: Performed By: #### 2 33340 #### [facility],[address] [place], [place] [phone] Urea nitrogen [Mass/Vol] 8 mg/dL Normal 7 - 18 [facility] Comment on above: Performed By: #### 2 07317 #### [facility],[address] [place] [address] 17127 D-DIMER, QUANTITATIVEon 11-20 D-DIMER QUANT 207 ng/ml Normal 0 - 230 [facility] Comment on above: Performed By: #### 2 71833 #### [facility],[address] [place] [address] 34736 D-DIMER, QUANTITATIVE Normal [facility] Comment on above: Result Comment: MIKE T D-DIMER Performed By: #### 2 46971 #### [facility],[address] [place] [address] 45761 LACTATEon 12-18-2023 Lactate [Moles/Vol] 0.9 mmol/L Normal 0.4 - 2.0 [facility] Comment on above: Performed By: #### 2 85549 #### [facility],[address] [place] [address] 74694 NT-proBNPon 12-18-2023 Natriuretic peptide B (Bld) [Mass/Vol] 20 pg/mL Normal 0 - 125 [facility] Comment on above: Performed By: #### 2 08075 #### [facility],[address] [place] [address] 05863 CNOVon 08-29-2023 CNOV Office Visit (UCWSTR ) GABRIELLE COOPER ([id number]) 1995 F Date Time Provider Department 08/29/23 11:45 AM JENNY MARTINO [facility] During your visit today, we recorded the following information about you: Temperature Pulse Respiration Blood pressure 98 degrees 85/minute 21/minute 124/76 Weight 129.3 kg Jenny Martino APRN.CNP 08/29/2023 12:00 PM Signed Subjective HPI HPI Gabrielle Erwin Allison is a 28 year old female who [...] HENT: Head: Normocephalic and atraumatic. Mouth/Throat: Lips: [place]. Mouth: Mucous membranes are moist. Pulmonary: Effort: [...] - AMOXICILLIN 875 MG TABLET Jenny Martino APRN.COMPLIANCE TESTING ANALYST Allergies As of Date: 08/29/2023 Noted Allergy [...] Status:Closed by JENNY MARTINO on 08/29/23 Normal [facility] UA DIP, URINE (POC)on 2023 BILIRUBIN UA (POCT) Negative Negative [facility] CLARITY UA (POCT) Clear [facility] COLOR UA (POCT) Dark yellow [facility] GLUCOSE UA (POCT) Negative Negative mg/dL [facility] Hemoglobin Ql (U) Negative Negative [facility] KETONE UA (POCT) Negative Negative mg/dL [facility] LEUKOCYTES UA (POCT) Negative Negative [facility] NITRITE UA (POCT) Negative Negative [facility] PH UA (POCT) 6.0 4.5 - 8.0 [facility] Protein Ql (U) Negative Negative mg/dL [facility] SPECIFIC GRAVITY UA (POCT) >=1.030 1.005 - 1.030 [facility] UROBILINOGEN UA (POCT) 0.2 E.U./dL Kalina l E.U./dL [facility] Laboratory - Chemistry and C hemistry - challengeOrdered By: Blanka Cerna on 05-30-2022 Free T4 [Mass/Vol] 1.25 ng/dL 0.76-1.46 [facility] No Panel InformationOrdered By: Blanka Cerna on 05-30-2022 Thyroid Stimulating Hormone (TSH) 2.47 uIU/mL 0.358-3.74 [facility] Absolute lymphocyte counton 12-29-2021 Lymphocytes Auto (Unsp spec) [#/Vol] 3.01 10*3/uL 0.83-4.51 [facility] Work Phone: Basophil percentageon 2021 Basophils/100 WBC (Bld) 0.5 % 0-1 [facility] Work Phone: Bilirubin [Mass/Vol] 0.40 mg/dL 0.20-1.00 [facility] Work Phone: Comment on above: For patients on eltr ombopag therapy, use of Dimension [place] TBIL is not recommended. Chloride [Moles/Vol] 106 mmol/L 98-107 [facility] Work Phone: Eosinophils/100 WBC (Bld) 1.5 % 0-5 [facility] Work Phone: Glucose [Mass/Vol] 89 mg/dL 74-106 [facility] Work Phone: Neutrophils (Bld) [#/Vol] 9.8 10*3/uL 2.0-7.7 [facility] Work Phone: Neutrophils/100 WBC (Bld) 71.2 % 47-70 [facility] Work Phone: Potassium [Moles/Vol] 4.1 mmol/L 3.5-5.1 [facility] Work Phone: Protein [Mass/Vol] 6.9 g/dL 6.4-8.2 [facility] Work Phone: Sodium [Moles/Vol] 138 mmol/L 136-145 [facility] Work Phone: WBC (Bld) [#/Vol] 13.8 10*3/uL 4.4-11.0 [facility] Work Phone: Basophil percentage 0-5 SEEN /hpf 0-5 [facility] Work Phone: Beta hCG serum qualon 2021 Beta HCG ( test) Ql Negative [facility] Work Phone: Bilirubin Test strip Ql (U)o n 12-29-2021 Bilirubin Ql (U) Negative Negative [facility] Work Phone: Blood erythrocytes count (nu mber/volume)on 12-29-2021 RBC (Bld) [#/Vol] 4.67 10*6/uL 4.2-5.4 [facility] Work Phone: Blood hemoglobin measurement (mass/volume)on 12-29-2021 Hemoglobin (Bld) [Mass/Vol] 12.9 g/dL 12.0-15.0 [facility] Work Phone: Blood lymphocytes/100 leukoc yteson 12-29-2021 Lymphocytes/100 WBC (Bld) 21.8 % 19-41 [facility] Work Phone: Blood monocytes/100 leukocyt eson 12-29-2021 Monocytes/100 WBC (Bld) 4.6 % 0-10 [facility] Work Phone: Blood platelet mean volumeon 12-29-2021 Platelet mean volume (Bld) [Entitic vol] 10.2 fL 6.2-12.0 [facility] Work Phone: Determination of erythrocyte mean corpuscular volume (MCV)on 12-29-2021 MCV (RBC) [Entitic vol] 86.9 fL 81-99 [facility] Work Phone: Direct bilirubinon 2 Bilirubin.direct [Mass/Vol] mg/dL 0.00-0.30 [facility] Work Phone: Hematocrit Auto (Bld) [Volum e fraction]on 12-29-2021 Hematocrit (Bld) [Volume fraction] 40.6 % 37-47 [facility] Work Phone: Ketones Test strip Ql (U)on 12-29-2021 Ketones Ql (U) Negative Negative [facility] Work Phone: Laboratory - Chemistry and C hemistry - challengeon 12-29-2021 ALP [Catalytic activity/Vol] 86 U/L 45-117 [facility] Work Phone: ALT [Catalytic activity/Vol] 19 U/L 13-56 [facility] Work Phone: [phone] CO2 [Moles/Vol] 24.0 mmol/L 21.0-32.0 [facility] Work Phone: Globulin (S) [Mass/Vol] 3.5 g/dL 2.2-4.2 [facility] Work Phone: Lipase [Catalytic activity/Vol] 118 U/L 73-393 [facility] Work Phone: [phone] Urea nitrogen/Creatinine [Mass ratio] 14.3 mg/mg 10-20 [facility] Work Phone: Laboratory - Hematology and Cell countson 12-29-2021 Erythrocyte distribution width (RBC) [Entitic vol] 44.3 fL 35.1-43.9 [facility] Work Phone: [phone] Erythrocyte distribution width (RBC) [Ratio] 14.0 % 11.6-14.6 [facility] Work Phone: [phone] Immature granulocytes/100 WBC (Bld) 0.400 % 0.0-0.9 [facility] Work Phone: [phone] Comment on above: IG% - Immature Granu locytes (promyelocytes, myelocytes and metamyelocytes) > 1% indicates that a LEFT SHIFT is Present. MCH (RBC) [Entitic mass] 27.6 pg 27.0-32.0 [facility] Work Phone: Nucleated RBC/100 WBC (Bld) [Ratio] 0 % 0-5 [facility] Work Phone: MCHC Auto (RBC) [Mass/Vol]on 12-29-2021 MCHC (RBC) [Mass/Vol] 31.8 g/dL 32-36 [facility] Work Phone: Mucus LM Ql (Urine sed)on Mucus Ql (Urine sed) 0 SEEN /hpf [facility] Work Phone: Nitrite Test strip Ql (U)on 12-29-2021 Nitrite Ql (U) Negative Negative [facility] Work Phone: No Panel Informationon 12-29 Estimated Creatinine Clearance Calc 108.61 ml/min [facility] Work Phone: Estimated GFR (MDRD) Amer 117 mL/min >60 [facility] Work Phone: Comment on above: GFR Calc Estimated GFR (MDRD) Non-Af Amer 97 mL/min >60 [facility] Work Phone: Comment on above: Non- GFR Calc Platelets bldon 12-29-2021 Platelets (Bld) [#/Vol] 413 10*3/uL 150-450 [facility] Work Phone: Protein Test strip Ql (U)on 12-29-2021 Protein Ql (U) Negative Negative [facility] Work Phone: Serum or plasma albumin teo urement (mass/volume)on 12-29-2021 Albumin [Mass/Vol] 3.4 g/dL 3.2-5.0 [facility] Work Phone: Serum or plasma calcium teo urement (mass/volume)on 12-29-2021 Calcium [Mass/Vol] 9.7 mg/dL 8.5-10.1 [facility] Work Phone: Serum or plasma creatinine m easurement (mass/volume)on 12-29-2021 Creatinine [Mass/Vol] 0.77 mg/dL 0.55-1.02 [facility] Work Phone: Comment on above: The validity of the calculated GFR & GFRAA in patients over 70 years has not been determined. Clinical correlation is essential. Serum or plasma urea nitroge n measurement (mass/volume)on 12-29-2021 Urea nitrogen [Mass/Vol] 11 mg/dL 7-18 [facility] Work Phone: Squamous epithelial cells de tection in urine sediment by light microscopyon 12-29-2021 Epithelial cells.squamous LM Ql (Urine sed) 10-25 SEEN /hpf 5-10 [facility] Work Phone: Thin prep Papanicolaou smear with manual screeningon 12-29-2021 Thin prep Papanicolaou smear with manual screening 30 U/L 15-37 [facility] Work Phone: Comment on above: Moderate Hemolysis, Result may be falsely increased. Thin prep Papanicolaou smear with manual screening 8 5-15 [facility] Work Phone: Urine blood detectionon 12-20 RBC Ql (U) Negative Negative [facility] Work Phone: RBC Ql (U) 0 SEEN /hpf 0-5 [facility] Work Phone: Urine clarityon 12-29-2021 Clarity (U) Sl. Cloudy Clear [facility] Work Phone: Urine color determinationon 12-29-2021 Color (U) Yellow Yellow [facility] Work Phone: Urine glucose detectionon Glucose Ql (U) Normal mg/dl Normal [facility] Work Phone: Urine leukocyte esterase det ection by dipstickon 12-29-2021 Leukocyte esterase Test strip Ql (U) Negative Negative [facility] Work Phone: Urine pHon 12-29-2021 pH (U) 7.0 [pH] 5.0 - 8.0 [facility] Work Phone: Urine sediment bacteria coun t by microscopy (number/high power field)on 12-29-2021 Bacteria LM.HPF (Urine sed) [#/Area] 2 /[HPF] None Seen [facility] Work Phone: Urine specific gravity measu rementon 12-29-2021 Specific gravity (U) [Rel density] 1.015 1.002-1.030 [facility] Work Phone: Urobilinogen Auto test strip Ql (U)on 12-29-2021 Urobilinogen Ql (U) Normal mg/dl Normal [facility] Work Phone: Basophil percentageon 2021 Bilirubin [Mass/Vol] 0.30 mg/dL 0.20-1.00 [facility] Work Phone: Comment on above: For patients on eltr ombopag therapy, use of Dimension [place] TBIL is not recommended. Chloride [Moles/Vol] 104 mmol/L 98-107 [facility] Work Phone: Cholesterol [Mass/Vol] 178 mg/dL <200 [facility] Work Phone: Comment on above: <200 mg/dL Desirable 200-240 mg/dL Borderline >240 mg/dL High Risk Glucose [Mass/Vol] 98 mg/dL 74-106 [facility] Work Phone: Potassium [Moles/Vol] 3.9 mmol/L 3.5-5.1 [facility] Work Phone: Protein [Mass/Vol] 7.3 g/dL 6.4-8.2 [facility] Work Phone: [phone] Sodium [Moles/Vol] 136 mmol/L 136-145 [facility] Work Phone: [phone] Triglyceride [Mass/Vol] 169 mg/dL <199 [facility] Work Phone: [phone] Comment on above: The drugs N-Acetylcy steine and Metamizole may falsely depress this assay.Serum Triglycerides Reference Interval Normal <150 mg/dL Borderline high 150 - 199 mg/dL High 200 - 499 mg/dL Very High > or = 500 mg/dL WBC (Bld) [#/Vol] 13.4 10*3/uL 4.4-11.0 [facility] Work Phone: Blood erythrocytes count (nu mber/volume)on 11-28-2021 RBC (Bld) [#/Vol] 4.47 10*6/uL 4.2-5.4 [facility] Work Phone: [phone] Blood hemoglobin measurement (mass/volume)on 11-28-2021 Hemoglobin (Bld) [Mass/Vol] 12.4 g/dL 12.0-15.0 [facility] Work Phone: [phone] Blood platelet mean volumeon 11-28-2021 Platelet mean volume (Bld) [Entitic vol] 9.6 fL 6.2-12.0 [facility] Work Phone: [phone] Determination of erythrocyte mean corpuscular volume (MCV)on 11-28-2021 MCV (RBC) [Entitic vol] 85.5 fL 81-99 [facility] Work Phone: [phone] Hematocrit Auto (Bld) [Volum e fraction]on 11-28-2021 Hematocrit (Bld) [Volume fraction] 38.2 % 37-47 [facility] Work Phone: Laboratory - Chemistry and C hemistry - challengeon 11-28-2021 ALP [Catalytic activity/Vol] 88 U/L 45-117 [facility] Work Phone: [phone] ALT [Catalytic activity/Vol] 21 U/L 13-56 [facility] Work Phone: [phone] CO2 [Moles/Vol] 29.0 mmol/L 21.0-32.0 [facility] Work Phone: [phone] Globulin (S) [Mass/Vol] 4.0 g/dL 2.2-4.2 [facility] Work Phone: [phone] Urea nitrogen/Creatinine [Mass ratio] 12.9 mg/mg 10-20 [facility] Work Phone: [phone] Laboratory - Hematology and Cell countson 11-28-2021 Erythrocyte distribution width (RBC) [Entitic vol] 45.1 fL 35.1-43.9 [facility] Work Phone: [phone] Erythrocyte distribution width (RBC) [Ratio] 14.4 % 11.6-14.6 [facility] Work Phone: [phone] MCH (RBC) [Entitic mass] 27.7 pg 27.0-32.0 [facility] Work Phone: MCHC Auto (RBC) [Mass/Vol]on 11-28-2021 MCHC (RBC) [Mass/Vol] 32.5 g/dL 32-36 [facility] Work Phone: No Panel Informationon 11-28 Estimated GFR (MDRD) Amer 131 mL/min >60 [facility] Work Phone: Comment on above: GFR Calc Estimated GFR (MDRD) Non-Af Amer 108 mL/min >60 [facility] Work Phone: Comment on above: Non- GFR Calc Vitamin D 25-Hydroxy 67.9 ng/mL [facility] Work Phone: Comment on above: Vitamin D 25(OH) Sta tus Range Deficiency <20 ng/mL (50nmol/L) Insufficiency 20 - 30 ng/mL (50 - 75 nmol/L) Sufficiency 30 - 100 ng/mL (75 - 250 nmol/L) Toxicity >100 ng/mL (>250 nmol/L) Platelets bldon 11-28-2021 Platelets (Bld) [#/Vol] 404 10*3/uL 150-450 [facility] Work Phone: Serum or plasma albumin teo urement (mass/volume)on 11-28-2021 Albumin [Mass/Vol] 3.3 g/dL 3.2-5.0 [facility] Work Phone: Serum or plasma albumin/glob ulin mass ratioon 11-28-2021 Albumin/Globulin [Mass ratio] 0.8 {ratio} 0.9-2.4 [facility] Work Phone: [phone] Serum or plasma calcium teo urement (mass/volume)on 11-28-2021 Calcium [Mass/Vol] 8.8 mg/dL 8.5-10.1 [facility] Work Phone: [phone] Serum or plasma cholesterol in HDL measurement (mass/volume)on 11-28-2021 Cholesterol in HDL [Mass/Vol] 29 mg/dL >40 [facility] Work Phone: Comment on above: The drugs N-Acetylcy steine and Metamizole may falsely depress this assay. Reference Range HDL <40 mg/dL Low HDL Cholesterol HDL >or= 60 mg/dL High HDL Cholesterol Serum or plasma cholesterol in VLDL measurement (mass/volume)on 11-28-2021 Cholesterol in VLDL [Mass/Vol] 34 mg/dL 5-40 [facility] Work Phone: Serum or plasma creatinine m easurement (mass/volume)on 11-28-2021 Creatinine [Mass/Vol] 0.70 mg/dL 0.55-1.02 [facility] Work Phone: Comment on above: The validity of the calculated GFR & GFRAA in patients over 70 years has not been determined. Clinical correlation is essential. Serum or plasma low density lipoprotein (LDL) cholesterol measurement (mass/volume)on 11-28-2021 Cholesterol in LDL [Mass/Vol] 115 mg/dL 0-130 [facility] Work Phone: Serum or plasma urea nitroge n measurement (mass/volume)on 11-28-2021 Urea nitrogen [Mass/Vol] 9 mg/dL 7-18 [facility] Work Phone: [phone] Thin prep Papanicolaou smear with manual screeningon 11-28-2021 Thin prep Papanicolaou smear with manual screening 13 U/L 15-37 [facility] Work Phone: [phone] Thin prep Papanicolaou smear with manual screening 3 5-15 [facility] Work Phone: [phone] Whole blood hemoglobin A1c/t otal hemoglobin ratio (mass fraction)on 11-28-2021 HbA1c (Bld) [Mass fraction] 5.4 % 3.8-5.6 [facility] Work Phone: Comment on above: Normal < 5.7 % Predi abetic 5.7 - 6.4 % Diabetic >or= 6.5 % Please note range changes. Absolute lymphocyte counton 08-09-2021 Lymphocytes Auto (Unsp spec) [#/Vol] 3.19 10*3/uL 0.83-4.51 [facility] Work Phone: Basophil percentageon 2021 Basophils/100 WBC (Bld) 0.7 % 0-1 [facility] Work Phone: Eosinophils/100 WBC (Bld) 3.3 % 0-5 [facility] Work Phone: [phone] Neutrophils (Bld) [#/Vol] 8.5 10*3/uL 2.0-7.7 [facility] Work Phone: [phone] Neutrophils/100 WBC (Bld) 65.7 % 47-70 [facility] Work Phone: [phone] WBC (Bld) [#/Vol] 13.0 10*3/uL 4.4-11.0 [facility] Work Phone: [phone] Blood erythrocytes count (nu mber/volume)on 08-09-2021 RBC (Bld) [#/Vol] 4.90 10*6/uL 4.2-5.4 [facility] Work Phone: [phone] Blood hemoglobin measurement (mass/volume)on 08-09-2021 Hemoglobin (Bld) [Mass/Vol] 13.2 g/dL 12.0-15.0 [facility] Work Phone: [phone] Blood lymphocytes/100 leukoc yteson 08-09-2021 Lymphocytes/100 WBC (Bld) 24.6 % 19-41 [facility] Work Phone: [phone] Blood monocytes/100 leukocyt eson 08-09-2021 Monocytes/100 WBC (Bld) 5.4 % 0-10 [facility] Work Phone: [phone] Blood platelet mean volumeon 08-09-2021 Platelet mean volume (Bld) [Entitic vol] 9.5 fL 6.2-12.0 [facility] Work Phone: Determination of erythrocyte mean corpuscular volume (MCV)on 08-09-2021 MCV (RBC) [Entitic vol] 83.7 fL 81-99 [facility] Work Phone: Hematocrit Auto (Bld) [Volum e fraction]on 08-09-2021 Hematocrit (Bld) [Volume fraction] 41.0 % 37-47 [facility] Work Phone: [phone] Iron measurement (mass/mass) on 08-09-2021 Iron (Unsp spec) [Mass/Mass] 77 ug/dL 50-170 [facility] Work Phone: [phone] Laboratory - Hematology and Cell countson 08-09-2021 Erythrocyte distribution width (RBC) [Entitic vol] 46.2 fL 35.1-43.9 [facility] Work Phone: [phone] Erythrocyte distribution width (RBC) [Ratio] 15.0 % 11.6-14.6 [facility] Work Phone: [phone] Immature granulocytes/100 WBC (Bld) 0.300 % 0.0-0.9 [facility] Work Phone: [phone] Comment on above: IG% - Immature Granu locytes (promyelocytes, myelocytes and metamyelocytes) > 1% indicates that a LEFT SHIFT is Present. MCH (RBC) [Entitic mass] 26.9 pg 27.0-32.0 [facility] Work Phone: [phone] Nucleated RBC/100 WBC (Bld) [Ratio] 0 % 0-5 [facility] Work Phone: [phone] MCHC Auto (RBC) [Mass/Vol]on 08-09-2021 MCHC (RBC) [Mass/Vol] 32.2 g/dL 32-36 [facility] Work Phone: [phone] Panel Informationon 08-09 Total Iron Binding Capacity 378 ug/dL 250-450 [facility] Work Phone: [phone] Platelets bldon 08-09-2021 Platelets (Bld) [#/Vol] 412 10*3/uL 150-450 [facility] Work Phone: [phone] Serum or plasma iron saturat ion measurement (mass fraction)on 08-09-2021 Iron saturation [Mass fraction] 20.4 % 15.0-55.0 [facility] Work Phone: XR Chest PA and Lateralon IMPRESSION: Within normal limits. No acute radiographic abnormality. Golf Stud Riveter: RANGEL Transcribe Date/Time: Oct 24 2020 7:12P Dictated by : MARTI CRUZ MD This examination was interpreted and the report reviewed and electronically signed by: MARTI CRUZ MD on Oct 24 2020 7:14PM [facility] DIVISION OF RADIOLOGY * * *Final Report* [...] soft tissues: Unremarkable. DIVISION OF RADIOLOGY Provider, [facility] - 10/24/2020 * * *Final Report* * [...] Within normal limits. No acute radiographic abnormality. Golf Stud Riveter: RANGEL Transcribe Date/Time: Oct 24 2020 7:12P Dictated by : MARTI CRUZ MD This examination was interpreted and the report reviewed and electronically signed by: MARTI CRUZ MD on Oct 24 2020 7:14PM EST [facility] Radiology Study observation (narrative) Tiara victoria [facility] XR Chest PA and LateralOrder ed By: [facility] Provider on 10-24-2020 [facility] Vital Signs Date Time Vital Sign Value Performing Clinician Facility 01-06-2025 13:20-0400 Body height 170.[address] Lenore Meier MD Work Phone: [facility] 01-06-2025 13:20-0400 Body mass index (BMI) [Ratio] 44.8 kg/m2 Dr. Lenore Meier MD Work Phone: [facility] 01-06-2025 13:20-0400 Body temperature 98.3 [degF] Dr. Lenore Meier MD Work Phone: [facility] 01-06-2025 13:20-0400 Body weight 129.[address] Lenore Meier MD Work Phone: [facility] 01-06-2025 13:20-0400 Diastolic blood pressure 82 mm[Hg] Dr. Lenore Meier MD Work Phone: [facility] 01-06-2025 13:20-0400 Heart rate 84 /min Dr. Lenore Meier MD Work Phone: [facility] 01-06-2025 13:20-0400 Respiratory rate 18 /min Dr. Lenore Meier MD Work Phone: [facility] 01-06-2025 13:20-0400 SaO2% (BldA) [Mass fraction] 97 % Dr. Lenore Meier MD Work Phone: [facility] 01-06-2025 13:20-0400 Systolic blood pressure 140 mm[Hg] Dr. Lenore Meier MD Work Phone: [facility] 12-16-2024 23:09-0400 Body temperature 98 [degF] Dr. Lenore Meier MD Work Phone: [facility] 12-16-2024 23:09-0400 Diastolic blood pressure 73 mm[Hg] Dr. Lenore Meier MD Work Phone: [facility] 12-16-2024 23:09-0400 Heart rate 68 /min Dr. Lenore Meier MD Work Phone: [facility] 12-16-2024 23:09-0400 Respiratory rate 20 /min Dr. Lenore Meier MD Work Phone: [facility] 12-16-2024 23:09-0400 SaO2% (BldA) [Mass fraction] 100 % Dr. Lenore Meier MD Work Phone: [facility] 12-16-2024 23:09-0400 Systolic blood pressure 135 mm[Hg] Dr. Lenore Meier MD Work Phone: [facility] 12-16-2024 19:32-0400 Body height 170.[address] Lenore Meier MD Work Phone: [facility] 12-16-2024 19:32-0400 Body mass index (BMI) [Ratio] 46.5 kg/m2 Dr. Lenore Meier MD Work Phone: [facility] 12-16-2024 19:32-0400 Body weight 134.[address] Lenore Meier MD Work Phone: [facility] 10-06-2024 13:38-0400 Body height 170.18 cm Blanka TYLERC Work Phone: [facility] 10-06-2024 13:38-0400 Body mass index (BMI) [Ratio] 47 kg/m2 Blanka TYLERC Work Phone: [facility] 10-06-2024 13:38-0400 Body temperature 98.2 [degF] Blanka Cerna NP-C Work Phone: [facility] 10-06-2024 13:38-0400 Body weight 136.07 kg Blankaroque Cerna VOICE TEACHER-C Work Phone: [facility] 10-06-2024 13:38-0400 Diastolic blood pressure 80 mm[Hg] Blanka Cerna VOICE TEACHER-C Work Phone: [facility] 10-06-2024 13:38-0400 Heart rate 93 /min Blanka Cerna VOICE TEACHER-C Work Phone: [facility] 10-06-2024 13:38-0400 Respiratory rate 18 /min Blankaroque Cerna VOICE TEACHER-C Work Phone: [facility] 10-06-2024 13:38-0400 SaO2% (BldA) [Mass fraction] 98 % Blankaroque Cerna VOICE TEACHER-C Work Phone: [facility] 10-06-2024 13:38-0400 Systolic blood pressure 142 mm[Hg] Blanka Cerna VOICE TEACHER-C Work Phone: [facility] 08-18-2024 16:44-0400 Body mass index (BMI) [Ratio] 44.46 kg/m2 Dalia Larouere SOLAR ENERGY SYSTEM INSTALLER HELPER.COMPLIANCE TESTING ANALYST Work Phone: [facility] 08-18-2024 16:44-0400 Body temperature 98.71 [degF] Dalia Larouere SOLAR ENERGY SYSTEM INSTALLER HELPER.COMPLIANCE TESTING ANALYST Work Phone: [facility] 08-18-2024 16:44-0400 Body weight 130 kg Dalia Larouere SOLAR ENERGY SYSTEM INSTALLER HELPER.COMPLIANCE TESTING ANALYST Work Phone: [facility] 08-18-2024 16:44-0400 Diastolic blood pressure 78 mm[Hg] Dalia Larouere SOLAR ENERGY SYSTEM INSTALLER HELPER.COMPLIANCE TESTING ANALYST Work Phone: [facility] 08-18-2024 16:44-0400 Heart rate 92 /min Dalia Larouere SOLAR ENERGY SYSTEM INSTALLER HELPER.COMPLIANCE TESTING ANALYST Work Phone: [facility] 08-18-2024 16:44-0400 Respiratory rate 16 /min Dalia Larouere SOLAR ENERGY SYSTEM INSTALLER HELPER.COMPLIANCE TESTING ANALYST Work Phone: [facility] 08-18-2024 16:44-0400 SaO2% (BldA) [Mass fraction] 97 % Dalia Gonzales APRN.COMPLIANCE TESTING ANALYST Work Phone: [facility] 08-18-2024 16:44-0400 Systolic blood pressure 120 mm[Hg] Dalia Gonzales SOLAR ENERGY SYSTEM INSTALLER HELPER.COMPLIANCE TESTING ANALYST Work Phone: [facility] 08-11-2024 21:03-0400 Heart rate 88 /min Blanka Cerna VOICE TEACHER-C Work Phone: [facility] 08-11-2024 21:03-0400 Respiratory rate 18 /min Blanka Cerna VOICE TEACHER-C Work Phone: [phone] [place] [address] 08-11-2024 17:52-0400 Body height 170.18 cm Blanka Cerna VOICE TEACHER-C Work Phone: [phone] [place] [address] 08-11-2024 17:52-0400 Body mass index (BMI) [Ratio] 44.6 kg/m2 Blanka Cerna VOICE TEACHER-C Work Phone: [phone] [place] [address] 08-11-2024 17:52-0400 Body temperature 98.5 [degF] Blanka Cerna VOICE TEACHER-C Work Phone: [phone] [place] [address] 08-11-2024 17:52-0400 Body weight 129.27 kg Blanka Cerna VOICE TEACHER-C Work Phone: [facility] 08-11-2024 17:52-0400 Diastolic blood pressure 84 mm[Hg] Blanka Cerna VOICE TEACHER-C Work Phone: [phone] [place] [address] 08-11-2024 17:52-0400 SaO2% (BldA) [Mass fraction] 95 % Blanka Cerna VOICE TEACHER-C Work Phone: [facility] 08-11-2024 17:52-0400 Systolic blood pressure 157 mm[Hg] Blanka Cerna VOICE TEACHER-C Work Phone: [phone] [place] [address] 08-09-2024 19:32-0400 Body mass index (BMI) [Ratio] 43.84 kg/m2 [facility] SOLAR ENERGY SYSTEM INSTALLER HELPER.COMPLIANCE TESTING ANALYST Work Phone: [facility] 08-09-2024 19:32-0400 Body temperature 97.81 [degF] [facility] SOLAR ENERGY SYSTEM INSTALLER HELPER.COMPLIANCE TESTING ANALYST Work Phone: [facility] 08-09-2024 19:32-0400 Body weight 128.2 kg [facility] SOLAR ENERGY SYSTEM INSTALLER HELPER.COMPLIANCE TESTING ANALYST Work Phone: [facility] 08-09-2024 19:32-0400 Diastolic blood pressure 78 mm[Hg] [facility] SOLAR ENERGY SYSTEM INSTALLER HELPER.COMPLIANCE TESTING ANALYST Work Phone: [facility] 08-09-2024 19:32-0400 Heart rate 88 /min [facility] SOLAR ENERGY SYSTEM INSTALLER HELPER.COMPLIANCE TESTING ANALYST Work Phone: [facility] 08-09-2024 19:32-0400 Respiratory rate 18 /min [facility] SOLAR ENERGY SYSTEM INSTALLER HELPER.COMPLIANCE TESTING ANALYST Work Phone: [facility] 08-09-2024 19:32-0400 SaO2% (BldA) [Mass fraction] 97 % [facility] SOLAR ENERGY SYSTEM INSTALLER HELPER.COMPLIANCE TESTING ANALYST Work Phone: [facility] 08-09-2024 19:32-0400 Systolic blood pressure 118 mm[Hg] [facility] SOLAR ENERGY SYSTEM INSTALLER HELPER.COMPLIANCE TESTING ANALYST Work Phone: [facility] 06-30-2024 15:38-0400 Body height 170.18 cm Blanka Cerna NP-C Work Phone: [facility] 06-30-2024 15:38-0400 Body mass index (BMI) [Ratio] 44.3 kg/m2 Blanka Cerna NP-C Work Phone: [facility] 06-30-2024 15:38-0400 Body temperature 97.6 [degF] Blanka Cerna VOICE TEACHER-C Work Phone: [facility] 06-30-2024 15:38-0400 Body weight 128.36 kg Blanka Cerna NP-C Work Phone: [facility] 06-30-2024 15:38-0400 Diastolic blood pressure 80 mm[Hg] Blanka Cerna VOICE TEACHER-C Work Phone: [facility] 06-30-2024 15:38-0400 Heart rate 105 /min Blanka Cerna VOICE TEACHER-C Work Phone: [facility] 06-30-2024 15:38-0400 Respiratory rate 18 /min Blanka Cerna VOICE TEACHER-C Work Phone: [facility] 06-30-2024 15:38-0400 SaO2% (BldA) [Mass fraction] 98 % Blanka Cerna VOICE TEACHER-C Work Phone: [facility] 06-30-2024 15:38-0400 Systolic blood pressure 142 mm[Hg] Blanka Cerna VOICE TEACHER-C Work Phone: [facility] 03-29-2024 13:18-0500 Body mass index (BMI) [Ratio] 42.85 kg/m2 Beto Athy PA-C Work Phone: [facility] 03-29-2024 13:18-0500 Body temperature 98.29 [degF] Beto Athy PA-C Work Phone: [facility] 03-29-2024 13:18-0500 Body weight 125.3 kg Beto Athy PA-C Work Phone: [facility] 03-29-2024 13:18-0500 Diastolic blood pressure 68 mm[Hg] Beto Athy PA-C Work Phone: [facility] 03-29-2024 13:18-0500 Heart rate 88 /min Beto Athy PA-C Work Phone: [facility] 03-29-2024 13:18-0500 Respiratory rate 16 /min Beto Athy PA-C Work Phone: [facility] 03-29-2024 13:18-0500 SaO2% (BldA) [Mass fraction] 98 % Beto Athy PA-C Work Phone: [facility] 03-29-2024 13:18-0500 Systolic blood pressure 118 mm[Hg] Beto Dobson PA-C Work Phone: [facility] 02-06-2024 13:08-0400 Body mass index (BMI) [Ratio] 40.49 kg/m2 Arden Moomaw SOLAR ENERGY SYSTEM INSTALLER HELPER.COMPLIANCE TESTING ANALYST Work Phone: [facility] 02-06-2024 13:08-0400 Body temperature 98.1 [degF] Arden Moomaw SOLAR ENERGY SYSTEM INSTALLER HELPER.COMPLIANCE TESTING ANALYST Work Phone: [facility] 02-06-2024 13:08-0400 Body weight 118.4 kg Arden Moomaw SOLAR ENERGY SYSTEM INSTALLER HELPER.COMPLIANCE TESTING ANALYST Work Phone: [facility] 02-06-2024 13:08-0400 Diastolic blood pressure 82 mm[Hg] Arden Moomaw SOLAR ENERGY SYSTEM INSTALLER HELPER.COMPLIANCE TESTING ANALYST Work Phone: [facility] 02-06-2024 13:08-0400 Heart rate 97 /min Arden Moomaw SOLAR ENERGY SYSTEM INSTALLER HELPER.COMPLIANCE TESTING ANALYST Work Phone: [facility] 02-06-2024 13:08-0400 Respiratory rate 16 /min Arden Moomaw SOLAR ENERGY SYSTEM INSTALLER HELPER.COMPLIANCE TESTING ANALYST Work Phone: [facility] 02-06-2024 13:08-0400 SaO2% (BldA) [Mass fraction] 98 % Arden Moomaw SOLAR ENERGY SYSTEM INSTALLER HELPER.COMPLIANCE TESTING ANALYST Work Phone: [facility] 02-06-2024 13:08-0400 Systolic blood pressure 152 mm[Hg] Arden Moomaw SOLAR ENERGY SYSTEM INSTALLER HELPER.COMPLIANCE TESTING ANALYST Work Phone: [facility] 08-29-2023 11:46-0400 Body mass index (BMI) [Ratio] 44.22 kg/m2 Jenny Martino SOLAR ENERGY SYSTEM INSTALLER HELPER.COMPLIANCE TESTING ANALYST Work Phone: [facility] 08-29-2023 11:46-0400 Body temperature 98.01 [degF] Jenny Martino SOLAR ENERGY SYSTEM INSTALLER HELPER.COMPLIANCE TESTING ANALYST Work Phone: [facility] 08-29-2023 11:46-0400 Body weight 129.3 kg Jenny Martino SOLAR ENERGY SYSTEM INSTALLER HELPER.COMPLIANCE TESTING ANALYST Work Phone: [facility] 08-29-2023 11:46-0400 Diastolic blood pressure 76 mm[Hg] Jenny Martino SOLAR ENERGY SYSTEM INSTALLER HELPER.COMPLIANCE TESTING ANALYST Work Phone: [facility] 08-29-2023 11:46-0400 Heart rate 85 /min Jenny Martino SOLAR ENERGY SYSTEM INSTALLER HELPER.COMPLIANCE TESTING ANALYST Work Phone: [facility] 08-29-2023 11:46-0400 Respiratory rate 21 /min Jenny Martino SOLAR ENERGY SYSTEM INSTALLER HELPER.COMPLIANCE TESTING ANALYST Work Phone: [facility] 08-29-2023 11:46-0400 SaO2% (BldA) [Mass fraction] 98 % Jenny Martino SOLAR ENERGY SYSTEM INSTALLER HELPER.COMPLIANCE TESTING ANALYST Work Phone: [facility] 08-29-2023 11:46-0400 Systolic blood pressure 124 mm[Hg] Jenny Martino SOLAR ENERGY SYSTEM INSTALLER HELPER.COMPLIANCE TESTING ANALYST Work Phone: [facility] 07-24-2023 23:45-0400 Body temperature 97.9 [degF] [facility] 07-24-2023 23:45-0400 Diastolic blood pressure 88 mm[Hg] [facility] 07-24-2023 23:45-0400 Heart rate 104 /min [facility] 07-24-2023 23:45-0400 Respiratory rate 16 /min [facility] 07-24-2023 23:45-0400 SaO2% (BldA) [Mass fraction] 98 % [facility] 07-24-2023 23:45-0400 Systolic blood pressure 141 mm[Hg] [facility] 07-24-2023 22:26-0400 Body height 170.18 cm [facility] 07-24-2023 22:26-0400 Body mass index (BMI) [Ratio] 44.1 kg/m2 [facility] 07-24-2023 22:26-0400 Body weight 127.91 kg [facility] 06-28-2023 14:17-0500 Body temperature 98.2 [degF] Carla Way SOLAR ENERGY SYSTEM INSTALLER HELPER.COMPLIANCE TESTING ANALYST Work Phone: [facility] 06-28-2023 14:17-0500 Body weight 130 kg Carla Praisler-Wood SOLAR ENERGY SYSTEM INSTALLER HELPER.COMPLIANCE TESTING ANALYST Work Phone: [facility] 06-28-2023 14:17-0500 Diastolic blood pressure 66 mm[Hg] Carla Praisler-Wood SOLAR ENERGY SYSTEM INSTALLER HELPER.COMPLIANCE TESTING ANALYST Work Phone: [facility] 06-28-2023 14:17-0500 Heart rate 94 /min Carla Praisler-Wood SOLAR ENERGY SYSTEM INSTALLER HELPER.COMPLIANCE TESTING ANALYST Work Phone: [facility] 06-28-2023 14:17-0500 Respiratory rate 16 /min Carla Praisler-Wood SOLAR ENERGY SYSTEM INSTALLER HELPER.COMPLIANCE TESTING ANALYST Work Phone: [facility] 06-28-2023 14:17-0500 SaO2% (BldA) [Mass fraction] 99 % Carla Praisler-Wood SOLAR ENERGY SYSTEM INSTALLER HELPER.COMPLIANCE TESTING ANALYST Work Phone: [facility] 06-28-2023 14:17-0500 Systolic blood pressure 112 mm[Hg] Carla Praisler-Wood SOLAR ENERGY SYSTEM INSTALLER HELPER.COMPLIANCE TESTING ANALYST Work Phone: [facility] 02-19-2022 08:45-0400 Body height 170.18 cm VOICE TEACHER-C Raya Serrano Work Phone: [facility] 02-19-2022 08:40-0400 Body mass index (BMI) [Ratio] 44.8 kg/m2 VOICE TEACHER-C Raya Serrano Work Phone: [facility] 02-19-2022 08:40-0400 Body weight 129.84 kg VOICE TEACHER-C Raya Serrano Work Phone: [facility] 02-19-2022 08:40-0400 Diastolic blood pressure 78 mm[Hg] VOICE TEACHER-C Raya Serrano Work Phone: [facility] 02-19-2022 08:40-0400 Systolic blood pressure 134 mm[Hg] VOICE TEACHER-C Raya Serrano Work Phone: [facility] 12-29-2021 17:21-0400 Diastolic blood pressure 72 mm[Hg] [facility] Work Phone: 12-29-2021 17:21-0400 Respiratory rate 16 /min [facility] Work Phone: 12-29-2021 17:21-0400 SaO2% (BldA) [Mass fraction] 98 % [facility] Work Phone: 12-29-2021 17:21-0400 Systolic blood pressure 168 mm[Hg] [facility] Work Phone: 12-29-2021 14:05-0400 Body height 170.18 cm [facility] Work Phone: 12-29-2021 14:05-0400 Body mass index (BMI) [Ratio] 43.8 kg/m2 [facility] Work Phone: 12-29-2021 14:05-0400 Body temperature 98 [degF] [facility] Work Phone: 12-29-2021 14:05-0400 Body weight 127 kg [facility] Work Phone: 12-29-2021 14:05-0400 Heart rate 80 /min [facility] Work Phone: 11-30-2021 18:30-0400 Body temperature 98.7 [degF] [facility] Work Phone: 11-30-2021 18:30-0400 Diastolic blood pressure 78 mm[Hg] [facility] Work Phone: 11-30-2021 18:30-0400 Heart rate 66 /min [facility] Work Phone: 11-30-2021 18:30-0400 Respiratory rate 14 /min [facility] Work Phone: 11-30-2021 18:30-0400 SaO2% (BldA) [Mass fraction] 100 % [facility] Work Phone: 11-30-2021 18:30-0400 Systolic blood pressure 134 mm[Hg] [facility] Work Phone: 11-30-2021 17:42-0400 Body height 170.18 cm [facility] Work Phone: 11-30-2021 17:42-0400 Body mass index (BMI) [Ratio] 46.5 kg/m2 [facility] Work Phone: 11-30-2021 17:42-0400 Body weight 134.6 kg [facility] Work Phone: 11-08-2021 11:09-0400 Body height 170.2 cm Trey Sumner MD Work Phone: [facility] 11-08-2021 11:09-0400 Body mass index (BMI) [Ratio] 44.64 kg/m2 Trey Sumner MD Work Phone: [facility] 11-08-2021 11:09-0400 Body weight 129.28 kg Trey Sumner MD Work Phone: [facility] Encounters Encounter Date Encounter Type Care Provider Facility Start: 02-14-2025 End: 02-14-2025 ambulatory Lenore Meier Facility:[facility] Start: 01-06-2025 End: 01-06-[address] Lenore Meier MD -[facility] Work Phone: Start: 01-06-2025 End: 01-06-[address] Lenore Meier MD Work Phone: -[facility] Start: 12-16-2024 End: 12-16-2024 Emergency department patient visit Dr. Lenore Meier MD Work Phone: -Emergency Department Work Phone: Start: 12-16-2024 End: 12-16-2024 Patient encounter procedure Keren PRABHAKAR -[facility] Work Phone: Start: 12-16-2024 End: 12-16-[address] Lenore Meier MD Work Phone: -[facility] Start: 12-16-2024 End: 12-16-2024 ambulatory [facility] Facility:[facility] Start: 10-06-2024 End: 10-06-[address] Lenore Meier MD -[facility] Work Phone: Start: 10-06-2024 End: 10-06-2024 ambulatory Blanka Nehemiah VOICE TEACHER-C Work Phone: [facility] Work Phone: Start: 08-18-2024 End: 08-18-2024 Patient encounter procedure Dalia Gonzales APRN.COMPLIANCE TESTING ANALYST Work Phone: [facility] Comment on above: Acute bronchitis, un specified organism (Primary Dx) Start: 08-18-2024 End: 08-18-2024 ambulatory [facility] Facility:[facility] Start: 08-11-2024 End: 08-11-2024 [facility] Work Phone: -[facility] Work Phone: Start: 08-09-2024 End: 08-09-2024 Office outpatient visit 25 minutes Jake Bernabe APRN.COMPLIANCE TESTING ANALYST Work Phone: [facility] Comment on above: URI with cough and c ongestion (Primary Dx) Start: 08-09-2024 End: 08-09-2024 ambulatory [facility] Facility:[facility] Start: 07-21-2024 End: 07-21-2024 ambulatory [facility] VOICE TEACHER-C Work Phone: [facility] Work Phone: Start: 07-21-2024 End: 07-21-2024 Patient encounter procedure Diane Vasquez VOICE TEACHER-C -[facility] Work Phone: Start: 07-21-2024 End: 07-21-2024 ambulatory Franciscahillsdiana Meier Facility:[facility] Start: 06-30-2024 End: 06-30-[address] Lenore Meier MD -[facility] Work Phone: Start: 06-30-2024 End: 06-30-2024 ambulatory Blanka TYLERC Work Phone: [facility] Work Phone: Start: 06-30-2024 End: 06-30-2024 ambulatory Lenore Meier Facility:[facility] Start: 06-14-2024 Encounter for other preprocedural examination Kaleb Power [facility] Start: 05-07-2024 End: 05-07-2024 Patient encounter procedure Keren PRABHAKAR -[facility] Work Phone: Start: 05-07-2024 End: 05-07-2024 ambulatory Blanka [facility] Facility:[facility] Start: 05-06-2024 End: 05-06-2024 Patient encounter procedure Kathy TYLERC -Laboratory, [facility] Start: 05-06-2024 End: 05-06-2024 [facility] Start: 04-12-2024 End: 04-12-2024 Patient encounter procedure Keren PRABHAKAR -Nuclear Medicine, [facility] Work Phone: Start: 04-12-2024 End: 04-12-2024 ambulatory Keren Shields Facility:[facility] Start: 03-29-2024 End: 03-29-2024 [facility] Start: 03-29-2024 End: 03-29-2024 Patient encounter procedure Beto Dobson PA-C Work Phone: [facility] Comment on above: Dental infection (Pr imary Dx) Start: 03-22-2024 End: 03-22-2024 Patient encounter procedure Agapito PRABHAKAR [facility] Work Phone: Start: 03-22-2024 End: 03-22-2024 ambulatory [facility] Facility:[facility] Start: 03-10-2024 End: 03-10-2024 ambulatory Diane Vasquez VOICE TEACHER Facility:[facility] Start: 03-03-2024 ambulatory Blanka Castillol in [facility] Facility:[facility] Start: 03-02-2024 ambulatory Blanka Castillol in [facility] Facility:[facility] Start: 03-02-2024 Encounter for gynecological examination (general) (routine) with abnormal findings Diane Vasquez VOICE TEACHER [facility] Start: 03-02-2024 End: 03-02-20[facility] Start: 03-02-2024 End: 03-02-2024 ambulatory [facility] Start: 03-02-2024 End: 03-02-2024 ambulatory [facility] Facility:[facility] Start: 02-06-2024 End: 02-06-2024 ambulatory [facility] Facility:[facility] Start: 02-06-2024 End: 02-06-2024 Patient encounter procedure Arden Hanna SOLAR ENERGY SYSTEM INSTALLER HELPER.COMPLIANCE TESTING ANALYST Work Phone: [facility] Comment on above: Elevated blood press ure reading without diagnosis of hypertension (Primary Dx) Start: 12-18-2023 End: 12-18-2023 Emergency department patient visit PHILLIP Holland BOYKIN [facility] Start: 08-29-2023 End: 08-29-2023 ambulatory GAGE LOGAN Facility:[facility] Start: 08-29-2023 End: 08-29-2023 Patient encounter procedure Jenny Martino APRN.COMPLIANCE TESTING ANALYST Work Phone: [facility] Comment on above: Toothache (Primary D x) Start: 07-24-2023 End: 07-24-2023 Emergency department patient visit [facility]-Emergency Department Work Phone: Start: 06-28-2023 End: 06-28-2023 Patient encounter procedure Carla Way APRN.COMPLIANCE TESTING ANALYST Work Phone: [facility] Comment on above: Urinary frequency (P rimary Dx); Vaginal discharge Start: 05-30-2022 End: 05-30-2022 ambulatory VOICE TEACHER-C Raya Serrano Work Phone: [facility] Work Phone: Start: 05-30-2022 End: 05-30-2022 Patient encounter procedure VOICE TEACHER-C Raya Serrano Work Phone: [facility]-Laboratory Start: 02-19-2022 End: 02-19-2022 Patient encounter procedure VOICE TEACHER-C Raya Serrano Work Phone: [facility] Start: 12-29-2021 End: 12-29-2021 Emergency department patient visit [facility]-Emergency Department Start: 12-21-2021 ambulatory UJM TREY SUMNER Facility:[facility] Start: 12-12-2021 End: 12-12-2021 ambulatory [facility] Work Phone: Start: 12-12-2021 End: 12-12-2021 Patient encounter procedure [facility]-Sleep Lab Start: 11-30-2021 End: 11-30-2021 Emergency department patient visit [facility]-Emergency Department Start: 11-28-2021 End: 11-28-2021 Patient encounter procedure [facility]Laboratory Start: 11-12-2021 [facility] Start: 11-09-2021 End: 11-09-2021 Office consultation new/estab patient 60 min Trey Sumner MD Work Phone: Sleep Medicine [facility] Comment on above: Hypersomnia (Primary Dx); Morbid obesity with BMI of 40.0-44.9, adult Start: 11-09-2021 ambulatory [facility] TREY SUMNER Facility:[facility] Start: 10-31-2021 ambulatory [facility] TREY SUMNER Facility:[facility] Start: 08-09-2021 End: 08-09-2021 Patient encounter procedure [facility]-Laboratory Start: 08-07-2021 End: 08-07-2021 Patient encounter procedure [facility]Sleep Lab Start: 10-24-2020 End: 10-24-2020 Subsequent hospital visit by physician Xr [facility] Work Phone: Radiology Comment on above: SOB (shortness of br eath) [R06.02] Procedures Date Procedure Procedure Detail Performing Clinician Start: 12-16-2024 Computed tomography of abdomen and pelvis with intravenous contrast Dr. Lenore Meier MD Work Phone: Start: 12-16-[address] Lenore Meier MD Work Phone: Start: 12-16-2024 Urnls dip stick/tabl et reagent auto microscopy Dr. Lenore Meier MD Work Phone: Start: 12-16-2024 Iadna-dna/rna gi pth gn multiplex probe tq 6-11 Dr. Lenore Meier MD Work Phone: Start: 12-16-2024 [address] difficil e detection Dr. Lenore Meier MD Work Phone: Start: 12-16-2024 End: 12-16-2024 Giardia lamblia antigen assay Dr. Lenore Meier MD Work Phone: Start: 12-16-[address] Lenore Meier MD Work Phone: Start: 12-16-2024 Ova [place] parasites identification Dr. Lenore Meier MD Work Phone: Start: 08-11-2024 X-ray of chest, PA a nd lateral views Blanka Cerna VOICE TEACHER-C Work Phone: Start: 08-11-2024 SARS-CoV-2, Influenz a & RSV (PCR) Blanka Cerna VOICE TEACHER-C Work Phone: Start: 07-21-2024 Pelvic echography Sherri Cerna VOICE TEACHER-C Work Phone: Start: 06-30-2024 Total iron binding c apacity measurement Blanka Cerna VOICE TEACHER-C Work Phone: Start: 04-12-2024 Radionuclide gastric emptying study Blanka Cerna VOICE TEACHERAricC Work Phone: Start: 07-24-2023 Plain chest X-ray Start: 06-28-2023 Urnls dip stick/tabl et rgnt auto w/o microscopy Paloma Eda SOLAR ENERGY SYSTEM INSTALLER HELPER.COMPLIANCE TESTING ANALYST Work Phone: Start: 10-24-2020 Radiologic exam ches t 2 views Devin Nelson SOLAR ENERGY SYSTEM INSTALLER HELPER.COMPLIANCE TESTING ANALYST Work Phone: Plan of Treatment Date Care Activity Detail Author Start: 01-06-2025 Vitamin B12 measurement [facility] Start: 01-06-2025 Vitamin D, 25-hydrox y measurement [facility] Start: 12-16-2024 [facility] Start: 12-16-2024 Abdomen/Pelvis W IV Cont ONLY Abdomen/Pelvis W IV Cont ONLY [facility] Start: 12-16-2024 CT Abdomen and Pelvi s W contrast IV [facility] Start: 12-16-2024 Protein measurement [facility] Start: 12-16-2024 End: 12-16-2024 [facility] Start: 12-16-2024 Giardia Antigen (DENZEL) Giardia Antige n (DENZEL) [facility] Start: 12-16-2024 Ova and Parasites Ova and Parasites [facility] Start: 06-30-2024 Patient referral [facility] Work Phone: Start: 12-21-2023 Covid-19 Vaccine ( season) Covid-19 Vaccine () [facility] Start: 12-21-2023 Influenza vaccination C [facility] Start: 07-24-2023 [facility] Start: 04-21-2023 Behavioral Health Screening Behavioral Health Screening [facility] Start: 04-21-2023 Depression Assessment Depression Ass essment [facility] Start: 12-20-2022 Covid-19 Vaccine ( season) Covid-19 Vaccine ( season) [facility] Start: 12-20-2022 Influenza vaccination Influenza Vacc ine (#1) [facility] Start: 12-20-2021 Influenza vaccination INFLUENZA VACC INE (#1) [facility] Start: 12-12-2021 Tractor Sweeper Driver stdy unatnd w/mi n hrt rate/o2 sat/resp anal TERMINAL CARMAN STDY UNATND W/ANAL [facility] Work Phone: Start: 10-23-2020 COVID-19 VACCINE (2 - Booster for Daniel series) COVID-19 VACCINE (2 - Booster for Daniel series) [facility] Start: 07-02-2019 Urine microalbumin profile DTaP,Tdap,Td Vaccine (7 - Td or Tdap) [facility] Start: 2017 Screening for malign ant neoplasm of cervix [facility] Start: 2015 Pneumococcal vaccination Pneum ococcal Vaccine (1 of 2 - PCV) [facility] Start: 2015 Third diphtheria, te tanus and acellular pertussis (DTaP) vaccination TDAP (ADULT) [facility] Start: 2014 Annual PCP Team Track Oiler nely Disease Visit Annual PCP Team Chronic Disease Visit [facility] Start: 2014 Anxiety Screening Anxiety Screening [facility] Start: 2014 Depression Screening Depression Scre ening [facility] Start: 2014 Hepatitis C screening Hepatitis C Sc ya [facility] Start: 2014 Tetanus vaccination TETANUS [facility] Start: 2012 Screening for Chlamy gloria trachomatis CHLAMYDIA SCREEN [facility] Start: 2011 HIV screening HIV SCREENING DISCUSSION [facility] Start: 2007 Vaccination for radha n papillomavirus HPV VACCINE ADOL (1 - 2-dose series) [facility] Start: 2002 Pneumococcal vaccination Pneum ococcal Vaccine (1 of 2 - PCV) [facility] Start: 2002 PNEUMOCOCCAL VACCINE SERIES (1 - PCV) PNEUMOCOCCAL VACCINE SERIES (1 - PCV) [facility] Start: 1996 GONORRHEA SCREEN GONORRHEA SCREEN [facility] Start: 1996 Hepatitis C antibody , confirmatory test HEPATITIS C VIRUS SCREENING [facility] Start: 1996 Potassium [Moles/vol ume] in Serum or Plasma POTASSIUM [facility] Start: 1996 Thyroid stimulating hormone measurement TSH [facility] Bacteria identified in Urine by Culture URINE CULTURE Microbiology Routine Urinary frequency 06/28/2023 3:14 PM EST [facility] Work Phone: BACTERIAL VAGINOSIS NAAT BACTERI AL VAGINOSIS NAAT Lab Routine Vaginal discharge Ordered: 06/28/2023 [facility] Work Phone: Comment on above: Ordered: 06/28/2023 RADU/TRICHOMONAS NAAT RADU /TRICHOMONAS NAAT Lab Routine Vaginal discharge Ordered: 06/28/2023 [facility] Work Phone: Comment on above: Ordered: 06/28/2023 CBC W Auto Different ial panel - Blood [facility] Chlamydia trachomatis+Neisseria gonorrhoeae DNA [Presence] in Unspecified specimen by MAGDA with probe detection GONORRHEA/CHLAMYDIA NAAT Lab Routine Vaginal discharge Ordered: 06/28/2023 [facility] Work Phone: Comment on above: Ordered: 06/28/2023 Clostridioides diffi cile DNA [Presence] in Unspecified specimen by MAGDA with probe detection [facility] metabo lic 1999 panel - Serum or Plasma [facility] metabo lic 1999 panel - Serum or Plasma [facility] Giardia lamblia Ag [Presence] in Stool by Immunoassay [facility] Giardia lamblia anti gen assay [facility] Hemoglobin A1c/Hemoglobin.total in Blood [facility] Nucleic acid assay [facility] Ova OR parasites identification [facility] Ova OR parasites identification [facility] Patient Education [facility] Work Phone: Patient referral [facility] Work Phone: Protein measurement [facility] Thyroid stimulating hormone measurement [facility] Immunizations Immunization Date Immunization Notes Care Provider Angela mckeon 01-06-2025 influenza, injectabl e, madin victor manuel canine kidney, preservative free Dr. Lenore Meier MD Work Phone: [facility] 08-28-2024 hepatitis A vaccine, adult dosage Dr. Lenore Meier MD Work Phone: [facility] 08-28-2024 Human Papillomavirus 9-valent vaccine Dr. Lenore Meier MD Work Phone: [facility] 12-24-2023 Influenza, injectabl e, Madin [place] Canine Kidney, preservative free, quadrivalent Dr. Lenore Meier MD Work Phone: [facility] 12-24-2023 Pfizer Covid-19 (Comirnaty) Dr. Lenore Meier MD Work Phone: [facility] 07-12-2022 Covid Pfizer Bivalen t Booster Dr. Lenore Meier MD Work Phone: [facility] 04-09-2022 influenza, injectabl e, quadrivalent, preservative free Dr. Lenore Meier MD Work Phone: [facility] 04-09-2022 influenza virus vacc ine, unspecified formulation Carla Way SOLAR ENERGY SYSTEM INSTALLER HELPER.COMPLIANCE TESTING ANALYST Work Phone: [facility] 08-28-2020 Covid (Haroldo & Haroldo) Dr. Lenore Meier MD Work Phone: [facility] 03-08-2020 Seasonal, quadrivale nt, recombinant, injectable influenza vaccine, preservative free Carla Way SOLAR ENERGY SYSTEM INSTALLER HELPER.COMPLIANCE TESTING ANALYST Work Phone: [facility] 03-08-2020 influenza virus vacc ine, unspecified formulation Trey Sumner MD Work Phone: [facility] 07-01-2009 tetanus toxoid, redu luis manuel diphtheria toxoid, and acellular pertussis vaccine, adsorbed Carla Way SOLAR ENERGY SYSTEM INSTALLER HELPER.COMPLIANCE TESTING ANALYST Work Phone: [facility] 12-07-2001 diphtheria, tetanus toxoids and acellular pertussis vaccine Dr. Lenore Meier MD Work Phone: [facility] 12-07-2001 diphtheria, tetanus toxoids and acellular pertussis vaccine, unspecified formulation Caral Way APRN.COMPLIANCE TESTING ANALYST Work Phone: [facility] 08-14-2001 measles, mumps and rubella virus vaccine Carla Way APRN.COMPLIANCE TESTING ANALYST Work Phone: [facility] 08-14-[address] poliovirus vaccine, inactivated Carla [address] APRN.COMPLIANCE TESTING ANALYST Work Phone: [facility] 10-25-1997 diphtheria, tetanus toxoids and acellular pertussis vaccine Dr. Lenore Meier MD Work Phone: [facility] 10-25-1997 diphtheria, tetanus toxoids and acellular pertussis vaccine, unspecified formulation Carla Way APRN.COMPLIANCE TESTING ANALYST Work Phone: [facility] 10-25-1997 haemophilus influenz ae type b vaccine, HbOC conjugate Carla Way APRN.COMPLIANCE TESTING ANALYST Work Phone: [facility] 10-25-1997 haemophilus influenz ae type b vaccine, PRP-T conjugate Dr. Lenore Meier MD Work Phone: [facility] 10-25-1997 hepatitis B vaccine, pediatric or pediatric/adolescent dosage Carla Way APRN.COMPLIANCE TESTING ANALYST Work Phone: [facility] 10-25-1997 trivalent poliovirus vaccine, live, oral Carla Way APRN.COMPLIANCE TESTING ANALYST Work Phone: [facility] 10-25-[address] APRN.COMPLIANCE TESTING ANALYST Work Phone: [facility] 06-07-1997 measles, mumps and rubella virus vaccine Carla Way APRN.COMPLIANCE TESTING ANALYST Work Phone: [facility] 1996 diphtheria, tetanus toxoids and acellular pertussis vaccine Dr. Lenore Meier MD Work Phone: [facility] 1996 diphtheria, tetanus toxoids and acellular pertussis vaccine, unspecified formulation Carla Way APRN.COMPLIANCE TESTING ANALYST Work Phone: [facility] 1996 haemophilus influenz ae type b vaccine, HbOC conjugate Carla Praisler-Wood SOLAR ENERGY SYSTEM INSTALLER HELPER.COMPLIANCE TESTING ANALYST Work Phone: [facility] 1996 haemophilus influenz ae type b vaccine, PRP-T conjugate Dr. Lenore Meier MD Work Phone: [facility] 1996 hepatitis B vaccine, pediatric or pediatric/adolescent dosage Carla Praisler-Wood SOLAR ENERGY SYSTEM INSTALLER HELPER.COMPLIANCE TESTING ANALYST Work Phone: [facility] 1996 diphtheria, tetanus toxoids and acellular pertussis vaccine Dr. Lenore Meier MD Work Phone: [facility] 1996 diphtheria, tetanus toxoids and acellular pertussis vaccine, unspecified formulation Carla Praisler-Wood SOLAR ENERGY SYSTEM INSTALLER HELPER.COMPLIANCE TESTING ANALYST Work Phone: [facility] 1996 haemophilus influenz ae type b vaccine, HbOC conjugate Carla Praisler-Wood SOLAR ENERGY SYSTEM INSTALLER HELPER.COMPLIANCE TESTING ANALYST Work Phone: [facility] 1996 haemophilus influenz ae type b vaccine, PRP-T conjugate Dr. Lenore Meier MD Work Phone: [facility] 1996 hepatitis B vaccine, pediatric or pediatric/adolescent dosage Carla Praisler-Wood SOLAR ENERGY SYSTEM INSTALLER HELPER.COMPLIANCE TESTING ANALYST Work Phone: [facility] 1996 poliovirus vaccine, inactivated Carla [employer]AR [employer]ERGY SYSTEM INSTALLER HELPER.COMPLIANCE TESTING ANALYST Work Phone: [facility] 1996 diphtheria, tetanus toxoids and acellular pertussis vaccine Dr. Lenore Meier MD Work Phone: [facility] 1996 diphtheria, tetanus toxoids and acellular pertussis vaccine, unspecified formulation Carla Praisler-Wood SOLAR ENERGY SYSTEM INSTALLER HELPER.COMPLIANCE TESTING ANALYST Work Phone: [facility] 1996 haemophilus influenz ae type b vaccine, HbOC conjugate Carla Praisler-Wood [employer] ENERGY SYSTEM INSTALLER HELPER.COMPLIANCE TESTING ANALYST Work Phone: [facility] 1996 haemophilus influenz ae type b vaccine, PRP-T conjugate Dr. Lenore Meier MD Work Phone: [facility] 1996 hepatitis B vaccine, pediatric or pediatric/adolescent dosage Carla Way SOLAR ENERGY SYSTEM INSTALLER HELPER.COMPLIANCE TESTING ANALYST Work Phone: [facility] 1996 poliovirus vaccine, inactivated [address] SOLAR ENERGY SYSTEM INSTALLER HELPER.COMPLIANCE TESTING ANALYST Work Phone: [facility] 1996 hepatitis B vaccine, pediatric or pediatric/adolescent dosage Carla Way SOLAR ENERGY SYSTEM INSTALLER HELPER.COMPLIANCE TESTING ANALYST Work Phone: [facility] 1996 hepatitis B vaccine, pediatric or pediatric/adolescent dosage Carla Way SOLAR ENERGY SYSTEM INSTALLER HELPER.COMPLIANCE TESTING ANALYST Work Phone: [facility] Payers Date Payer Category Payer Unknown [id number] 2024 Self-pay [id number] 2024 Unknown [id number] 2022 Unknown [id number] 2021 Unknown [id number] 2021 Unknown [facility]OS [facility]ICK [facility] [id number] 2021-Present [address] [place] [address] [id number]. [id number] 2016 Medicaid [id number]. [id number] 1996 Unknown [id number] 2.16.840.1.503489.3.579.2.594 1996 Unknown [id number] 2.16.840.1.640843.3.579.2.594 1996 Unknown [id number] 2.16.840.1.915924.3.579.2.594 1996 Unknown [id number] 2.16.840.1.776294.3.579.2.594 1996 Unknown [id number] 2.16.840.1.227930.3.579.2.651 Unknown [id number] 2..840.1.371046.3.579.2.462 Unknown [id number] 2..840.1.724005.3.579.2.462 Unknown [id number] .840.1.979313.3.579.2.462 Unknown [id number] 2.840.1.835610.3.579.2.462 Unknown [id number] 2.840.1.768270.3.579.2.462 Unknown [id number] 2.840.1.803297.3.579.2.462 Unknown [id number] 2.840.1.962634.3.579.2.462 Unknown [id number] .840.1.872966.3.579.2.462 Unknown [id number] 2.840.1.221713.3.579.2.462 Unknown [id number] 2.840.1.670435.3.579.2.462 Unknown [id number] 2.840.1.572860.3.579.2.462 Unknown [id number] .840.1.503462.3.579.2.462 Unknown [id number] 2.840.1.581512.3.579.2.462 Unknown [id number] 2.840.1.047848.3.579.2.462 Unknown [id number] 2.840.1.789065.3.579.2.462 Unknown [id number] 2.16.840.1.680370.3.579.2.462 Unknown [id number] 2.16.840.1.319294.3.579.2.462 Unknown [id number] 2.16.840.1.450740.3.579.2.462 Unknown [id number] 2.16.840.1.340593.3.579.2.462 Unknown [id number] 2.16840.1.437877.3.579.2.462 Unknown [id number] 2.16.840.1.351405.3.579.2.462 Social History Date Type Detail Facility Start: 03-19-2021 End: 07-24-2023 Tobacco smoking status NJIS Unknown if ever smoked [facility] Start: 1995 Sex Assigned At Female W [facility] Start: 11-08-2021 End: 12-16-2024 Tobacco smoking status NJIS Smokes tobacco daily [facility] Start: 04-21-2012 History of tobacco use Smoker [facility] Start: 03-29-2020 End: 11-08-2021 Cigarettes smoked current (pack per day) - Reported 1 [facility] Start: 11-08-2021 End: 08-18-2024 Tobacco use and exposure Smokeless tobacco non-user [facility] Start: 11-08-2021 Alcohol intake Lifetime non-d magnus (finding) [facility] Start: 1995 Sex Assigned At Not on file [facility] Start: 04-21-2012 History of tobacco use Cigarette Smo ker [facility] Start: 06-28-2023 End: 08-18-2024 Alcohol intake Current non-drinker of alcohol (finding) [facility] Start: 03-29-2020 End: 06-28-2023 Tobacco use panel [facility] National Score (1-10 0), lower number is lower risk Not on file [facility] Start: 12-05-2022 Gender identity Identifies as female gender (finding) [facility] Start: 12-05-2022 Sexual orientation Heterosexual (fin ding) [facility] Start: 09-24-2020 End: 10-24-2020 Exposure to SARS-CoV-2 (event) Not sure [facility] Start: 07-10-2024 End: 08-12-2024 Sex Female (finding) [facility] Start: 08-18-2024 Tobacco smoking stat [facility] Ex-smoker [facility] Mental Status Date Assessment Result Facility 08-11-2024 Cognitive function Level Of Cons ciousness Awake;Alert;Appropriate;Follow s Commands [facility] Work Phone: 07-24-2023 Cognitive function Awake;Alert;A ppropriate;Follow s Commands [facility] Work Phone: 12-29-2021 Cognitive function Level Of Cons ciousness Awake;Alert;Appropriate;Follow s Commands [facility] Work Phone: 11-30-2021 Cognitive function Level Of Cons ciousness Awake;Alert;Appropriate;Follow s Commands [facility] Work Phone: Clinical Notes 10-24-2020 to 01-06-2025 Note Date & Type Note Facility 01-06-2025 Progress note [facility] 01-06-2025 Progress note Note Date/Time January 06, 2025 2:00pm [facility] [address] [place] [address] OFFICE VISIT Date of Service: 01/06/25 MR#: [id number] Acct: [id number] Name: GABRIELLE COOPER Rep #: [id number] : 1995 Provider: Dr. Francisca Meier MD Age/Sex: 29/F Location: [facility] Status: Signed Intake Vital Signs 10/06/24 13:38 12/16/24 19:32 01/06/25 13:20 Height 5 ft 7 in 5 ft 7 in 5 ft 7 in Weight: 286 lb BMI 44.8 BP 140/82 H Blood Pressure Location Lt brachial Position Sitting Respiration 18 Pulse 84 Pulse Source Monitor Temp 98.3 F Temp Source Temporal Pulse Oximetry (%) 97 Oxygen Delivery Method room air Comment pt reports that she did not take her amlodipine today Intake Visit Reasons: 3 M FU Chief Complaint: 3 M FU Is patient in pain?: No Allergies amoxicillin Allergy (Intermediate, Verified 01/06/25 13:20) Rash clindamycin Allergy (Verified 01/06/25 13:20) Rash Medications ?Medication ?Instructions ?Recorded ?Confirmed ?Type cholecalciferol (vitamin D3) 1,250 50,000 unit PO QWEE K 05/30/17 01/06/25 History mcg (50,000 unit) capsule ferrous sulfate 325 mg (65 mg 325 mg PO DAILY 12/26/23 01/06/25 History iron) tablet norethindrone (contraceptive) 0.35 0.35 mg PO QDAY #84 tabs 03/02/24 01/06/25 Rx mg tablet (Jacquelin) omeprazole 40 mg capsule,delayed 40 mg PO QDAY #60 cap s 03/10/24 01/06/25 Rx release amlodipine 5 mg tablet 5 mg PO QDAY #30 tabs 01/06/25 Rx levothyroxine 75 mcg tablet 75 mcg PO DAILY #90 tabs 0 11/23/24 01/06/25 Rx potassium chloride 40 mEq/15 mL 20 meq PO QDAY 5 01/06/25 History oral liquid Have you fallen in the past year?: No [facility] Medical History (Updated 01/06/25 @ 15:[address] 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 History of hypertension. She has been managing hypertension with daily amlodipine, though she hasn't consistently checked her blood pressure at home. Started at her last visit. She did not concerning side effects on amlodipine. Blood pressure today at 140/82. History of tobacco use which continues. Smoked just before her visit today. She has made dietary modifications such as reducing soda intake and increasing water and home-cooked meals. She also expresses a desire to get her vitamin B12 levels checked, as a previous test indicated borderline levels. She continues vitamin D supplementation but has not been taking B12 supplements. She reports having experienced some stomach issues. 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 Attestation: Documentation on this patient encounter was [...] Eyes: No blurry vision, change in vision, vision loss, dry eyes, eye pain or Light sensitivity ENT ENT: No abnormal hearing, ear or mastoid pain, tinnitus, nasal congestion, headache(s), neck pain or sore throat Resp Respiratory: No cough, excessive phlegm production, hemoptysis, shortness of breath, snoring or wheezing Cardio Cardiology: No chest pain at rest, chest pain with exertion, excessive sweating, shortness of breath, dyspnea on exertion, lightheadedness, orthopnea or palpitations Gastro GI: No abdominal pain, change in bowel habits, constipation, cramping, diarrhea, nausea/dyspepsia or vomiting Genitourinary-Female: No burning urination, painful urination, urinary incontinence, urinary frequency, abnormal vaginal bleeding or pelvic pain Musc Musculoskeletal: No abnormal gait, joint pain, back pain, limited range of motion, neck pain, numbness or tingling Skin Skin: No dry skin, redness, lesions, itchy eyes, rash or wounds Neuro Neurology: No abnormal gait, abnormal hearing, frequent falls, headache(s), memory loss, numbness or tingling Psych Psychiatric: No abnormal sleep pattern, No anxiety, No change in appetite, No irritability, No memory loss and No Thoughts of harming yourself/Others Endo Endocrine: No cold intolerance, excessive sweating, fatigue, flushing, heat intolerance, increased thirst/drinking, increased hunger or weight change Aller/Imm Allergy/Immunologic: No itchy eyes, seasonal allergy symptoms, hives or wheezing Brett/Lymp Hematologic/Lymphatic: No easy bleeding, easy bruising, enlarged lymph nodes or other Exam Const General: cooperative, comfortable and no acute distress Orientation: alert, awake and oriented x3 HENMT Head: normal to inspection, normocephalic and atraumatic Ears: hearing grossly normal bilaterally Neck Neck: normal visual inspection, full ROM, no lymphadenopathy and supple Resp Effort & Inspection: normal respiratory effort and able to speak in complete sentences Auscultation: Bilateral: Clear to Auscultation Cardio Rate: regular rate Rhythm: regular rhythm Heart Sounds: S1 normal and S2 normal GI Palpation: soft (Nontender, no palpable organomegaly) Neuro General: patient alert, patient awake, patient oriented x3, moves all extremities and CN's II-XI intact bilaterally Extrem General: no clubbing, cyanosis or edema Psych Appearance: grossly normal Mental Status: mental status grossly normal Mood: congruent mood Affect: normal affect Immunizations Flucelvax [id number] (PF) 45 mcg (15 mcg x 3)/0.5 mL IM syringe Performing Provider: Lenore Meier MD Performing Location: [facility] Administered by: Ramona Sheffield MA on 01/06/25 14:21 Dose Route Admin Location Dispensed Lot Number Expiration Date Pack age NDC NDC Searchlight Operator 0.5 mL IM Left Deltoid 0.5 mL [id number] 08/28/25 31539-575-10 [id number] [employer] VIS Given Date VIS Provided VIS Publication Date 01/06/25 Single Vaccine 24 Eligibility Eligibility Date Funding Source Not Applicable Coding Level of Care Code Off vis,est,level 4 Diagnoses Hypertension I10 Tobacco use Z72.0 Vitamin D deficiency E55.9 Hypothyroidism E03.9 Loose stools R19.5 Flu vaccine need Z23 Assessment and Plan Assessment and Plan (1) Hypertension: Status: Chronic Plan: Not optimal. Blood pressure today at 140/82 not so much different from her last check. Continue with amlodipine once daily. Emphasized the importance of regular blood pressure monitoring at home. If home readings remain elevated, will increase amlodipine to 10 mg daily. Encouraged lifestyle modifications including dietary improvements and the cessation of smoking. Call with blood pressure update in 1 week. Follow-up in 3 months. (2) Tobacco use: Status: Acute Plan: Smoking cessation as above, she voiced understanding. (3) Vitamin D deficiency: Status: Chronic Plan: Chronic history of, she states that she has been taking her vitamin D supplements consistently. Repeat vitamin D level prior to next visit. Will also add on a B12 level. (4) Hypothyroidism: Status: Chronic Plan: Continue levothyroxine, 75 mcg daily. Repeat TSH prior to next visit. (5) Loose stools: Status: Acute Plan: As above, following up with GI and plan is for scope. Will review records. (6) Flu vaccine need: Status: Acute Plan: Flu vaccine given. This note was generated with [employer] dictation software. It may contain incorrect words, spelling, and punctuation that were not noted in checking the note before signing. Orders: Orders Influenza Immunization Today Z23 - Encounter for immunization Comprehensive Metabolic Profil 3 Months I10 - Essential (primary) hypertension Thyroid Stim Hormone (TSH) 3 Months E03.9 - Hypothyroidism, unspecified Hemoglobin A1c 3 Months E66.01 - Morbid (severe) obesity due to excess calories, R73.09 - Other abnormal glucose Vitamin B12 Today Z13.21 - Encounter for screening for nutritional disorder Vitamin D,25 Hydroxy Today E55.9 - Vitamin D deficiency, unspecified Medications: Discontinued spironolactone Discontinued Reason: Ordered/Entered in error 50 mg PO QAM Patient Instructions: - Monitor your blood pressure at home and keep a log of the readings. - Aim to quit smoking as soon as possible; consider counseling or medication aids. - Maintain the current healthy diet and increased water intake. - Report your blood pressure readings and any new symptoms in one week. - Return in three months for a regular follow-up. Clinical Quality Measures Falls Risk Screening/Assistive Devices Have you fallen in the past year?: No 01/06/25 1558 <Electronically signed by Lenore oneill MD> Date _ Lenore Meier MD Cosigner Signature: Date (if applicable) CC: ~ [facility] Work Phone: 1(207) 311-956708-28-2025 Discharge summary [facility] Medical Records Department [address] [place] [id number] Emergency Department Summary 12/16/24 MR#: [id number] Acct: [id number] Name: GABRIELLE COOPER Rep #:[id number] : 1995 29 From: Stef Jaimes MD PCP: Dr. Lenore Meier MD Status:R ER Location: ED HPI HPI - GI History of Present Illness Chief Complaint: Diarrhea Diarrhea/Melena/Hematochezia GI Symptom: Positive for Diarrhea Onset: Month(s) (1) Stool Quality: Positive for Watery Narrative Narrative: 29-year-old female past medical history of gastroparesis and constipation as well as gastritis presents with diarrhea that she has had for a month. She states that she went and saw her real estate executive assistant/OMAR at Dr. Power's office today. They took a stool sample and did laboratory work. However, after her appointment she has had 7 episodes of watery stool. She states she usually onlyhas 4-5 episodes a day over the last month. Usually, with her gastroparesis sheis constipated so this is different for her. She states that she does not know what to do because she feels dehydrated and weak and she is continuing to have diarrhea multiple episodes a day. She denies any fevers or chills, no nauseaorvomiting, no dysuria or hematuria, no exacerbating or alleviating factors. [facility] Medical History Axillary lump Hypertension Dermatitis Hypersomnolence COVID-19 Rash Thyroid disease Low iron Heartburn Gastric reflux Smoker Bradycardia Vitamin D deficiency Iron deficiency Fatigue Anxiety Depression Hypothyroidism Body mass index [BMI] 45.0-49.9, adult Obesity VINEET I (cervical intraepithelial neoplasia I) Abnormal Pap smear of cervix PCOS (polycystic ovarian syndrome) Home Medications ?Medication ?Instructions ?Recorded ?Last Taken ?Type cholecalciferol (vitamin D3) 1,250 50,000 unit PO QWEE K 05/30/17 Unknown History mcg (50,000 unit) capsule spironolactone 50 mg tablet 50 mg PO QAM 05/30/1702/19 History ferrous sulfate 325 mg (65 mg 325 mg PO DAILY 12/26/23 Unknown History iron) tablet norethindrone (contraceptive) 0.35 0.35 mg PO QDAY #84 tabs 03/02/24 03/02/24 Rx mg tablet (Jacquelin) omeprazole 40 mg capsule,delayed 40 mg PO QDAY #60 cap s 03/10/24 Unknown Rx release triamcinolone acetonide 0.1 % 1 applic topical BID PRN rash 06/30/24 Unknown Rx topical cream #453.6 grams amlodipine 5 mg tablet 5 mg PO QDAY #30 tabs Unknown Rx levothyroxine 75 mcg tablet 75 mcg PO DAILY #90 tabs 0 11/23/24 Unknown Rx Allergy/AdvReac Type Severity Reaction Status Date / Time amoxicillin Allergy Intermediate Rash Verified 12/16/24 19:35 clindamycin Allergy Rash Verified 12/16/24 19:35 Family History Grandfather Heart disease Mother Diabetes Grandmother Diabetes Surgical History History of tonsillectomy Social History adopted: No household members: family current occupational status: employed current occupation: [employer] Smoking Status: Current every day smoker tobacco type: cigarettes alcohol intake: never substance use type: does not use caffeine: Yes frequency: 3-4 times per week seatbelt use: always do you feel safe at home: Yes additional social history: single ROS ROS ED ROS Narrative Review of systems positive for epigastric pain, as well as multiple episodes of watery diarrhea daily for the last month. Endorses generalized weakness and feelings of dehydration. No fevers or chills, no nausea or vomiting, denies prior abdominal surgeries. EXAM Physical Exam Narrative Exam Narrative: Afebrile. Vital signs noted. Nontoxic-appearing. Cardiovascular examination reveals a regular rate and rhythm. Lungs are clear to auscultation bilaterally. Abdomen is soft and nontender with the exception of minimal tenderness in the epigastrium, but no guarding or rebound. Positive bowel sounds. Neurological examination nonfocal, nonlateralizing. Const Vital Signs: 12/16/24 19:32 12/16/24 20:06 12/16/24 21:00 Temperature 98.3 F 97.9 F 97.9 F Temperature Source Temporal Temporal Temporal Pulse Rate 73 76 72 Respiratory Rate 16 18 19 H Blood Pressure 145/74 H 147/84 H 140/87 H Blood Pressure Mean 97 105 104 Pulse Ox 100 100 99 Oxygen Delivery Method Room Air Room Air Room Air 12/16/24 21:31 12/16/24 22:00 Temperature 98 F Temperature Source Oral Pulse Rate 97 78 Respiratory Rate 18 21 H Blood Pressure 138/79 H Blood Pressure Mean 98 Pulse Ox 100 99 Oxygen Delivery Method Room Air Room Air MDM MDM MDM Narrative Medical decision making narrative: Differential diagnosis includes but not limited to gastroenteritis versus colitis versus pancreatitis versus diverticulitis. I reviewed her prior laboratory work and ED visits. I do feel CT imaging is indicated today. Patient will be bolused normal saline 1 L intravenously. I did review her note from the gastroenterology OMAR today. Stool studies were sent. She has been having 3-4 watery stools for the last 2 months according to the note. She has to follow-up in 3 months and consider colonoscopy. I reviewed her laboratory work today and she does have a leukocytosis of 18.3, but compared to prior labs this is a chronic leukocytosis. Hemoglobin 12.9 with hematocrit 39.1, platelet count 391. Sodium is normal at 139 with potassium 3.4, carbon dioxide normal at 22.7, BUN and creatinine normal. LFTs show slightly elevated alk phos of 106 which I think is nonspecific. Lipase normal at 25. I doubt pancreatitis. Urinalysis is negative for infection. 0-5 WBCs. I do not feel antibiotics are indicated for a urinary tract infection. Review of the radiology report of the CT of the abdomen pelvis shows no acute process, no obstruction, no thickened colonic wall. At this point in time, I am unsure as to the cause of her daily diarrhea for 2 months, I do feel she can be discharged to follow-up with gastroenterology. Repeat examination shows that she feels improved and is motivated for discharge after IV fluids. Return instructions were reviewed. Disposition is discharged home in stable condition. History & Record Review Discussion w/independent historian: Patient Additional record(s) reviewed:: Prior outpatient record (Today's gastroenterology visit) and Prior ED visit Lab Data Attestation: I reviewed the patient's lab results. Labs: Laboratory Results - last 24 hr 12/16/24 20:40 WBC 18.3 H RBC 4.40 Hgb 12.9 Hct 39.1 MCV 88.9 MCH 29.3 MCHC 33.0 RDW Std Deviation 44.5 H RDW Coeff of Julienne 13.7 Plt Count 391 MPV 10.2 Immature Gran % (Auto) 0.400 Neut % (Auto) 60.4 Lymph % (Auto) 27.1 [place] % (Auto) 4.7 Eos % (Auto) 6.7 H Baso % (Auto) 0.7 Absolute Neuts (auto) 11.0 H Absolute Lymphs (auto) 4.95 H Nucleated RBC % 0 Sodium 139 Potassium 3.4 Chloride 102 Carbon Dioxide 22.7 Anion Gap 14 BUN 8 Creatinine 0.72 Estim Creat Clear Calc 166.83 Est GFR (MDRD) Non-Af 116 BUN/Creatinine Ratio 10.6 Glucose 93 Calcium 9.2 Total Bilirubin 0.19 AST 15 ALT 11 Alkaline Phosphatase 106 H Total Protein 7.5 Albumin 4.4 Globulin 3.2 Albumin/Globulin Ratio 1.4 Lipase 25 Serum , Qual NEGATIVE Urine Color Straw Urine Clarity Clear Urine pH 6.0 Ur Specific [place] 1.015 Urine Protein 15 H Urine Glucose (UA) Normal Urine Ketones Negative Urine Occult Blood Negative Urine Nitrite Negative Urine Bilirubin Negative Urine Urobilinogen Normal Ur Leukocyte Esterase Negative Urine RBC 0-5 SEEN Urine WBC 0-5 SEEN Ur Squamous Epith Cells 0-5 SEEN Urine Bacteria 0 SEEN Urine Mucus 0 SEEN Radiography Diagnostic Testing: Clinical Impression(s) from Imaging Studies Abdomen/Pelvis CT 12/16/24 21:32 IMPRESSION: 1. No acute findings in the abdomen or pelvis. 2. Right adnexal cyst measures 4.2 x 5.2 x 4.0 cm. Reading Location: [facility] Discharge Plan Triage Chief Complaint: Diarrhea ED Provider: Stef Jaimes Dx/Rx/DC Orders Clinical Impression: Watery stools, Epigastric pain, Diarrhea Instructions: ED Diarrhea, Unknown Cause, ED Epigastric Pain Uncertain Cause Prescriptions: No Action cholecalciferol (vitamin D3) 50,000 unit capsule 50,000 unit PO QWEEK spironolactone 50 mg tablet 50 mg PO QAM ferrous sulfate 325 mg (65 mg iron) tablet 325 mg PO DAILY norethindrone (contraceptive) [Jacquelin] 0.35 mg tablet 0.35 mg PO QDAY Qty: 84 4RF triamcinolone acetonide 0.1 % cream 1 applic topical BID PRN (Reason: rash) Qty: 453.6 2RF amlodipine 5 mg tablet 5 mg PO QDAY Qty: 30 3RF omeprazole 40 mg capsule,delayed release(DR/EC) 40 mg PO QDAY Qty: 60 3RF levothyroxine 75 mcg tablet 75 mcg PO DAILY Qty: 90 0RF Primary Care Provider: Lenore Meier Referrals: Lenore Meier MD [Primary Care Provider] - As soon as possible Friend,DO Kaleb [Med Staff - Active Staff] - As soon as possible Activity Restrictions/Additional Instructions: Follow-up with gastroenterology again, and let them know that you are in the emergency department. You can return to the emergency department with fever, increased pain, or any new or worsening symptoms as well. Print Language: Kyrgyz Disposition Disposition: Home, Self Care What to do if you have Problems For any increased pain, shortness of breath, bleeding, nausea or vomiting, chestpain, or any unexpected problems, contact your Primary Care Provider. Call [facility] ([phone]) or report tothe closest Emergency Room. Call 911 if necessary. 12/16/24 9319 Cosigner Signature (if applicable): CC: Dr. Lenore Meier MD ~ Signed [facility]08-28-2025 Radiology Diagnostic study note [facility] Imaging Services [address] [place], [place] [address] Abdomen/Pelvis W IV Cont ONLY MR#: [id number] Acct: [id number] Name: GABRIELLE COOPER Rep #: [id number] : 1995 29 From: Manuel Wilder MD PCP: Dr. Lenore Meier MD Status: R EG ER Study:Abdomen/Pelvis W IV Cont ONLY Date of E xam: 12/16/24 Exam# [id number] Ordering Dr: Stef Jaimes MD PROCEDURE: ABDOMEN/PELVIS W IV CONT ONLY 12/16/2024 REASON FOR EXAM: DIARRHEA TECHNIQUE: ABDOMEN/PELVIS W IV CONT ONLY Coronal and Sagittal reconstruction series were provided. CONTRAST: 100 cc of Isovue 370 intravenous contrast. One or more dose reduction techniques were used (e.g., Automated exposure control, adjustment of the mA and/or kV according to patient size, use of iterative reconstruction technique. RADIATION DOSE SUMMARY: CTDlvol: 35 mGy DLP: 1437 mGycm COMPARISON: CT abdomen and pelvis 10/07/2018 FINDINGS: Lung bases: Unremarkable. Liver: Normal size. No mass. Gallbladder: Unremarkable. No biliary ductal dilatation. Spleen: Normal size. Pancreas: Normal size without evidence of mass surrounding inflammation or ductal dilation. Adrenals: Unremarkable Kidneys: Normal renal sizes. No hydronephrosis. Bladder: Unremarkable. Reproductive Organs: Uterus unremarkable. Right adnexal cyst measures 4.2 x 5.2x 4.0 cm. No pelvic masses. Bowel: Normal. No bowel obstruction. Appendix: Normal. Lymph nodes: Unremarkable. Vasculature: The abdominal aorta and IVC are normal. Peritoneum / Retroperitoneum: No free fluid or air. Bones: No acute fractures. CT/Abdomen/Pelvis W IV Cont ONLY IMPRESSION: 1. No acute findings in the abdomen or pelvis. 2. Right adnexal cyst measures 4.2 x 5.2 x 4.0 cm. Reading Location: [facility] CC: Dr. Stef Jaimes MD; Dr. Lenore Meier MD ~ Golf Stud Riveter: Signed [facility]08-28-2025 Discharge summary Author Stef Jaimes [facility] Note Date/Time December 16, 2024 11 :06pm [facility] Medical Records Department [address] [place] [address] Emergency Department Summary 12/16/24 MR#: [id number] Acct: [id number] Name: GABRIELLE COOPER Rep #:[id number] : 1995 29 From: Stef Jaimes MD PCP: Dr. Lenore Meier MD Status:R EG ER Location: ED HPI HPI - GI History of Present Illness Chief Complaint: Diarrhea Diarrhea/Melena/Hematochezia GI Symptom: Positive for Diarrhea Onset: Month(s) (1) Stool Quality: Positive for Watery Narrative Narrative: 29-year-old female past medical history of gastroparesis and constipation as well as gastritis presents with diarrhea that she has had for a month. She states that she went and saw her real estate executive assistant/OMAR at Dr. Power's office today. They took a stool sample and did laboratory work. However, after her appointment she has had 7 episodes of watery stool. She states she usually onlyhas 4-5 episodes a day over the last month. Usually, with her gastroparesis sheis constipated so this is different for her. She states that she does not know what to do because she feels dehydrated and weak and she is continuing to have diarrhea multiple episodes a day. She denies any fevers or chills, no nausea orvomiting, no dysuria or hematuria, no exacerbating or alleviating factors. [facility] Medical History Axillary lump Hypertension Dermatitis Hypersomnolence COVID-19 Rash Thyroid disease Low iron Heartburn Gastric reflux Smoker Bradycardia Vitamin D deficiency Iron deficiency Fatigue Anxiety Depression Hypothyroidism Body mass index [BMI] 45.0-49.9, adult Obesity VINEET I (cervical intraepithelial neoplasia I) Abnormal Pap smear of cervix PCOS (polycystic ovarian syndrome) Home Medications ?Medication ?Instructions ?Recorded ?Last Taken ?Type cholecalciferol (vitamin D3) 1,250 50,000 unit PO QWEE K 05/30/17 Unknown History mcg (50,000 unit) capsule spironolactone 50 mg tablet 50 mg PO QAM 05/30/1702/19 History ferrous sulfate 325 mg (65 mg 325 mg PO DAILY 12/26/23 Unknown History iron) tablet norethindrone (contraceptive) 0.35 0.35 mg PO QDAY #84 tabs 03/02/24 03/02/24 Rx mg tablet (Jacquelin) omeprazole 40 mg capsule,delayed 40 mg PO QDAY #60 cap s 03/10/24 Unknown Rx release triamcinolone acetonide 0.1 % 1 applic topical BID PRN rash 06/30/24 Unknown Rx topical cream #453.6 grams amlodipine 5 mg tablet 5 mg PO QDAY #30 tabs Unknown Rx levothyroxine 75 mcg tablet 75 mcg PO DAILY #90 tabs 0 11/23/24 Unknown Rx Allergy/AdvReac Type Severity Reaction Status Date / Time amoxicillin Allergy Intermediate Rash Verified 12/16/24 19:35 clindamycin Allergy Rash Verified 12/16/24 19:35 Family History Grandfather Heart disease Mother Diabetes Grandmother Diabetes Surgical History History of tonsillectomy Social History adopted: No household members: family current occupational status: employed current occupation: [employer] Smoking Status: Current every day smoker tobacco type: cigarettes alcohol intake: never substance use type: does not use caffeine: Yes frequency: 3-4 times per week seatbelt use: always do you feel safe at home: Yes additional social history: single ROS ROS ED ROS Narrative Review of systems positive for epigastric pain, as well as multiple episodes of watery diarrhea daily for the last month. Endorses generalized weakness and feelings of dehydration. No fevers or chills, no nausea or vomiting, denies prior abdominal surgeries. EXAM Physical Exam Narrative Exam Narrative: Afebrile. Vital signs noted. Nontoxic-appearing. Cardiovascular examination reveals a regular rate and rhythm. Lungs are clear to auscultation bilaterally. Abdomen is soft and nontender with the exception of minimal tenderness in the epigastrium, but no guarding or rebound. Positive bowel sounds. Neurological examination nonfocal, nonlateralizing. Const Vital Signs: 12/16/24 19:32 12/16/24 20:06 12/16/24 21:00 Temperature 98.3 F 97.9 F 97.9 F Temperature Source Temporal Temporal Temporal Pulse Rate 73 76 72 Respiratory Rate 16 18 19 H Blood Pressure 145/74 H 147/84 H 140/87 H Blood Pressure Mean 97 105 104 Pulse Ox 100 100 99 Oxygen Delivery Method Room Air Room Air Room Air 12/16/24 21:31 12/16/24 22:00 Temperature 98 F Temperature Source Oral Pulse Rate 97 78 Respiratory Rate 18 21 H Blood Pressure 138/79 H Blood Pressure Mean 98 Pulse Ox 100 99 Oxygen Delivery Method Room Air Room Air MDM MDM MDM Narrative Medical decision making narrative: Differential diagnosis includes but not limited to gastroenteritis versus colitis versus pancreatitis versus diverticulitis. I reviewed her prior laboratory work and ED visits. I do feel CT imaging is indicated today. Patient will be bolused normal saline 1 L intravenously. I did review her note from the gastroenterology OMAR today. Stool studies were sent. She has been having 3-4 watery stools for the last 2 months according to the note. She has to follow-up in 3 months and consider colonoscopy. I reviewed her laboratory work today and she does have a leukocytosis of 18.3, but compared to prior labs this is a chronic leukocytosis. Hemoglobin 12.9 with hematocrit 39.1, platelet count 391. Sodium is normal at 139 with potassium 3.4, carbon dioxide normal at 22.7, BUN and creatinine normal. LFTs show slightly elevated alk phos of 106 which I think is nonspecific. Lipase normal at 25. I doubt pancreatitis. Urinalysis is negative for infection. 0-5 WBCs. I do not feel antibiotics are indicated for a urinary tract infection. Review of the radiology report of the CT of the abdomen pelvis shows no acute process, no obstruction, no thickened colonic wall. At this point in time, I am unsure as to the cause of her daily diarrhea for 2 months, I do feel she can be discharged to follow-up with gastroenterology. Repeat examination shows that she feels improved and is motivated for discharge after IV fluids. Return instructions were reviewed. Disposition is discharged home in stable condition. History & Record Review Discussion w/independent historian: Patient Additional record(s) reviewed:: Prior outpatient record (Today's gastroenterology visit) and Prior ED visit Lab Data Attestation: I reviewed the patient's lab results. Labs: Laboratory Results - last 24 hr 12/16/24 20:40 WBC 18.3 H RBC 4.40 Hgb 12.9 Hct 39.1 MCV 88.9 MCH 29.3 MCHC 33.0 RDW Std Deviation 44.5 H RDW Coeff of Julienne 13.7 Plt Count 391 MPV 10.2 Immature Gran % (Auto) 0.400 Neut % (Auto) 60.4 Lymph % (Auto) 27.1 [place] % (Auto) 4.7 Eos % (Auto) 6.7 H Baso % (Auto) 0.7 Absolute Neuts (auto) 11.0 H Absolute Lymphs (auto) 4.95 H Nucleated RBC % 0 Sodium 139 Potassium 3.4 Chloride 102 Carbon Dioxide 22.7 Anion Gap 14 BUN 8 Creatinine 0.72 Estim Creat Clear Calc 166.83 Est GFR (MDRD) Non-Af 116 BUN/Creatinine Ratio 10.6 Glucose 93 Calcium 9.2 Total Bilirubin 0.19 AST 15 ALT 11 Alkaline Phosphatase 106 H Total Protein 7.5 Albumin 4.4 Globulin 3.2 Albumin/Globulin Ratio 1.4 Lipase 25 Serum , Qual NEGATIVE Urine Color Straw Urine Clarity Clear Urine pH 6.0 Ur Specific [place] 1.015 Urine Protein 15 H Urine Glucose (UA) Normal Urine Ketones Negative Urine Occult Blood Negative Urine Nitrite Negative Urine Bilirubin Negative Urine Urobilinogen Normal Ur Leukocyte Esterase Negative Urine RBC 0-5 SEEN Urine WBC 0-5 SEEN Ur Squamous Epith Cells 0-5 SEEN Urine Bacteria 0 SEEN Urine Mucus 0 SEEN Radiography Diagnostic Testing: Clinical Impression(s) from Imaging Studies Abdomen/Pelvis CT 12/16/24 21:32 IMPRESSION: 1. No acute findings in the abdomen or pelvis. 2. Right adnexal cyst measures 4.2 x 5.2 x 4.0 cm. Reading Location: [facility] Discharge Plan Triage Chief Complaint: Diarrhea ED Provider: Stef Jaimes Dx/Rx/DC Orders Clinical Impression: Watery stools, Epigastric pain, Diarrhea Instructions: ED Diarrhea, Unknown Cause, ED Epigastric Pain Uncertain Cause Prescriptions: No Action cholecalciferol (vitamin D3) 50,000 unit capsule 50,000 unit PO QWEEK spironolactone 50 mg tablet 50 mg PO QAM ferrous sulfate 325 mg (65 mg iron) tablet 325 mg PO DAILY norethindrone (contraceptive) [Jacquelin] 0.35 mg tablet 0.35 mg PO QDAY Qty: 84 4RF triamcinolone acetonide 0.1 % cream 1 applic topical BID PRN (Reason: rash) Qty: 453.6 2RF amlodipine 5 mg tablet 5 mg PO QDAY Qty: 30 3RF omeprazole 40 mg capsule,delayed release(DR/EC) 40 mg PO QDAY Qty: 60 3RF levothyroxine 75 mcg tablet 75 mcg PO DAILY Qty: 90 0RF Primary Care Provider: Lenore Meier Referrals: Lenore Meier MD [Primary Care Provider] - As soon as possible Friend,DO Kaleb [Med Staff - Active Staff] - As soon as possible Activity Restrictions/Additional Instructions: Follow-up with gastroenterology again, and let them know that you are in the emergency department. You can return to the emergency department with fever, increased pain, or any new or worsening symptoms as well. Print Language: Kyrgyz Disposition Disposition: Home, Self Care What to do if you have Problems For any increased pain, shortness of breath, bleeding, nausea or vomiting, chestpain, or any unexpected problems, contact your Primary Care Provider. Call [facility] ([phone]) or report to the closest Emergency Room. Call 911 if necessary. 12/16/24 2306 <Electronically signed by Stef Jaimes MD> Cosigner Signature (if applicable): CC: Dr. Lenore Meier MD ~ Signed [facility] Work Phone: 1(984) 930-449206-18-2025 Evaluation note* Diagnosis Onset Date Resolution Status Admit Date Axillary lump acute October 06, 2024 1:29pm Hypersomnolence chronic September 1:29pm Hypertension chronic October 06, 2 025 1:29pm Loose stools acute December 16, 2024 9:31am [facility] Work Phone: 1(690) 153-774206-18-2025 Evaluation note* Diagnosis Onset Date Resolution Status Admit Date Axillary lump acute October 06, 2024 1:29pm Hypersomnolence chronic September 1:29pm Hypertension chronic October 06, 025 1:29pm Loose stools acute December 16, 2024 9:31am Flu vaccine need acute 2024 1:11pm Loose stools acute January 062024 1:11pm Tobacco use acute December 1:11pm Hypertension chronic January 062024 1:11pm Hypothyroidism chronic January 06, 2025 1:11pm Vitamin D deficiency chronic Dec 1:11pm [facility] Work Phone: 1(444) 573-647504-30-2025 NoteHNO ID: [id number] Author: DALIA GONZALES APRN.COMPLIANCE TESTING ANALYST Service: ? Author Type: Nurse Practitioner Type: [...] in the next 2-3 days. Recording using Wikinvest software for draft documentation of the visit was discussed with the patient/authorized patient support representative; all questions welcomed and answered. Patient/authorized patient support representative agreed to proceed Dalia Gonzales APRN.CNP 08/18/24 5:00 PM Differential Diagnoses - Acute Bronchitis is more likely for the f (more content not included)... [facility]04-30-2025 History of Present illness Narrative* Dalia [...] in the next 2-3 days. Recording using Wikinvest software for draft documentation of the visit was discussed with the patient/authorized patient support representative; all questions welcomed and answered. Patient/authorized patient support representative agreed to proceed Dalia Gonzales APRN.CNP 08/18/24 5:00 PM Differential Diagnoses - Acute Bronchitis is more likely for the following reason(s): suggested by H&P Disposition The patient was discharged. OTC Medications were advised: Zyrtec [facility]04-30-2025 Instructions* Patient Instructions* Dalia Gonzales APRN.CNP - 08/18/2024 4:55 PM EDT Acute Bronchitis What is acute bronchitis? Acute bronchitis is an infection of the bronchial (say: bvpfa-rqh-aby ) tree. The bronchial tree ismade up [...] get worse. Thank you for coming to [facility] today. I appreciate your confidence in choosing the [facility] for your medical care. Dalia Gonzales APRN.KIA [facility] [address] [facility] [phone] documented in this encounterUc Health04-23-2025 Radiology Diagnostic study note [facility] Imaging Services [address] [place], [place] [id number] Chest PA and Lateral MR#: [id number] Acct: [id number] Name: GABRIELLE COOPER Rep #: [id number] : 1995 F 29 From: Abe Cuenca MD PCP: Dr. Lenore Meier MD Status: R EG ER Study:Chest PA and Lateral Date of Exam: 08/11/24 Exam# [id number] Ordering Dr: Nathen De Jesus DO PROCEDURE: CHEST PA AND LATERAL 08/11/2024 REASON FOR EXAM: COUGH TECHNIQUE: Frontal and lateral views of the chest. FINDINGS: Hardware: None Heart: The heart size is normal. Mediastinum: The mediastinal contour is unremarkable. Lungs: The lungs are clear. Bones: The bones are unremarkable. RAD/Chest PA and Lateral IMPRESSION: NO ACUTE FINDINGS. Reading Location: [id number] CC: Dr. Nathen Jacobo DO; Dr. Lenore Meier MD ~ Golf Stud Riveter: Signed [facility]04-21-2025 NoteHNO ID: [id number] Author: JAKE BERNABE APRN.COMPLIANCE TESTING ANALYST Service: ? Author Type: Nurse Practitioner Type: [...] Patient was educated on (more content not included)...[facility] 08-09-2024 History of Present illness Narrative* Jake Bernabe, JORDEN.[facility] - 08/09/2024 7:35 PM EDT Subjective [...] of care. This note was generated using Derbywire software. It may contain errors in wording, punctuation, or spelling. Jake Bernabe APRN.COMPLIANCE TESTING ANALYST documented in this encounterUc Health04-02-2025 Radiology Diagnostic study note [facility] Imaging Services [address] [place], [place] [address] Pelvic w/ Transvaginal MR#: [id number] Acct: [id number] Name: GABRIELLE COOPER Rep #: [id number] : 1995 F 29 From: Arpit Rogers MD PCP: Dr. Lenore Meier MD Status: R EG CLI Study:Pelvic w/ Transvaginal Date of Exam: 07/21/24 Exam# [id number] Ordering Dr: Diane Vasquez VOICE TEACHER VOICE TEACHER-C PROCEDURE: PELVIC W/ TRANSVAGINAL REASON FOR EXAM: [...] 2.5 cm right ovarian cyst. Reading Location: [place] [address] CC: BELLA Vasquez; Dr. Lenore Meier MD ~ Golf Stud Riveter: Signed [facility]03-12-2025 Evaluation note* Diagnosis Onset Date Resolution Status Admit Date Dermatitis chronic June 30 3:30pm Hypersomnolence chronic June 3:30pm Hypertension chronic June 30, 2024 3:30pm Hypothyroidism chronic June 3:30pm Iron deficiency chronic June 3:30pm PCOS (polycystic ovarian syndrome) chronic June 30, 2024 3:30pm [facility] Work Phone: [phone] Evaluation note* Diagnosis Onset Date Resolution Status Admit Date Constipation acute April 10:30am Epigastric pain acute April 212024 10:30am Dermatitis chronic June 30 3:30pm Hypersomnolence chronic June 3:30pm Hypertension chronic June 30, 2024 3:30pm Hypothyroidism chronic June 3:30pm Iron deficiency chronic June 3:30pm PCOS (polycystic ovarian syndrome) chronic June 30, 2024 3:30pm [facility] Work Phone: 1(223) 286-861612-09-2024 NoteHNO ID: [id number] Author: BETO DOBSON PA-C Service: ? Author Type: Physician Medication Assistant Type: Progress Notes Filed: 03/29/2024 14:42 Note Text: This note was created using EnviroMissionriter. Subjective Gabrielle Cooper is a 28 year old female. HPI Presents with a chief complaint of right lower tooth pain over the past 4 days. She has had some drainage from it. She has had tooth infections previously. She does have a dental appointment in 2 days for [facility]. No fevers or chills. Review of [...] with Augmentin. Follow-up with dentist. Patient agreeable. [facility] History of Present illness Narrative* Beto Dobson PA-C - 03/29/2024 2:40 PM EST This note was created using EnviroMissionriter. Subjective Gabrielle Cooper is a 28 year old female. HPI Presents with a chief complaint of right lower tooth pain over the past 4 days. She has had some drainage from it. She has had tooth infections previously. She does have a dental appointment in 2 days for [facility]. No fevers or chills. Review of [...] agreeable. Beto Dobson PA-C documented in this encounterUc Health11-12-2024 [facility] Medical Records Department [address] [place] [address] History Physical Exam 03/02/24 1316 MR#: [id number] Acct: [id number] Name: GABRIELLE COOPER Rep #: [id number] : 1995 28 From: Kaleb Friend DO PCP: Blanka Cerna Amalia, VOICE TEACHER-C Status:[facility] Location: [place] [address] History and Physical Date of Admission: 03/02/24 Nurse's Note: OV 02.03.24 Pt here for c/o abdominal pressure she has been experiencing for about a month. She takes pantoprazole daily. Has never had an EGD or colonoscopy. [facility] Medical History Bradycardia Vitamin D deficiency Iron deficiency Fatigue Anxiety Depression Hypothyroidism Body mass index [BMI] 45.0-49.9, adult Obesity VINEET I (cervical intraepithelial neoplasia I) Abnormal Pap smear of cervix PCOS (polycystic ovarian syndrome) Surgical History History of tonsillectomy Family History Grandfather Heart diseaseMother DiabetesGrandmother Diabetes Social History current occupational status: employed current occupation: [employer] Smoking Status: Current some day smoker tobacco [...] to the office today for establishment with [facility]. She has a PMHx of VINEET I, anxiety, depression, PCOS, hypothyroidism, iron deficiency, bradycardia and hydrosalpinx. She is here today for evaluation of abdominal/epigastric pressure which has been persistent for over a month now. She was seen in the ED here at [facility] about a month ago with normal [...] denies n/v, heartburn, diarrhea constipation or melena. [facility] ED 9.06.14; visit for abdominal pain and dark stool [...] Appearance: average body habitus and well nourished [facility] Head: normal to inspection Ears: hearing grossly [...] or ulcer. S (more content not included)... [facility]10-18-2024 NoteHNO ID: [id number] Author: ARDEN HANNA APRN.COMPLIANCE TESTING ANALYST Service: ? Author Type: Nurse Practitioner Type: [...] Patient understands and is agreeable. Arden Hanna APRN.[facility]10-18-[facility] History of Present illness Narrative* Arden Hanna APRN.COMPLIANCE TESTING ANALYST - 02/06/2024 1:15 PM EDT This note was created using EnviroMissionriter. Subjective Gabrielle Cooper is a 28 year [...] agreeable. Arden Hanna APRN.KIA documented in this encounterUc Health05-10-2024 NoteHNO ID: [id number] Author: JENNY MARTINO APRN.KIA Service: ? Author Type: Nurse Practitioner Type: [...] HENT: Head: Normocephalic and atraumatic. Mouth/Throat: Lips: [place]. Mouth: Mucous membranes are moist. Pulmonary: Effort: [...] - AMOXICILLIN 875 MG TABLET Jenny Martino APRN.[facility]05-10-2024 History of Present illness Narrative* Jenny Martino APRN.KIA - 08/29/2023 11:57 AM EDT Subjective HPI [...] HENT: Head: Normocephalic and atraumatic. Mouth/Throat: Lips: [place]. Mouth: Mucous membranes are moist. Pulmonary: Effort: [...] worsen - AMOXICILLIN 875 MG TABLET Jenny Maritno APRN.CNP documented in this encounterUc Health03-09-2024 Instructions* Patient Instructions* Carla Way APRN.CNP - 06/28/2023 2:42 PM EST ASSESSMENT/PLAN: 1. [...] Discussed expected course of illness Carla Way APRN.CNP documented in this encounterUc Health03-09-2024 History of Present illness Narrative* Carla Way APRN.CNP - 06/28/2023 2:37 PM EST Subjective HPI [...] nursing note reviewed. Exam conducted with a labor supervisor present. Constitutional: General: She is not in [...] Discussed expected course of illness Carla Way APRN.COMPLIANCE TESTING ANALYST documented in this encounterUc Health07-22-2022 Instructions* Patient Instructions* Trey Sumner MD - 11/09/2021 1:21 PM EDT Drowsy Driving Tips These suggestions will help prevent you from the risk of drowsy driving. 1. If you feel tired or drowsy do not drive. Sleepiness is a major cause of motor vehicle accidentsand accounts for 40% of all fatal crashes reported on the [facility]. No matter how much you think you [...] hours of driving. 8. Drive with a dressmaker garment fitter. Share the driving. Relax in the back seat until it is your time to sharethe driving again. YOU CAN FIND MORE INFORMATION BY VISITING OUR WEBPAGE: [email or web address] documented in this encounterMercy Health07-22-2022 History of Present illness Narrative* Mercy Bruce - 11/09/2021 1:00 PM EDT I contacted patient on 11/08/2021 11:26 AM. Answers were put into visit during pre-charting. Will the patient be in the state [facility] at the time of the telehealth visit? Yes if no, notify your commodity manager & clinical commodity manager of potential issue Confirm mode for the visit (MyChart, 3rd Republican or telephone call): 3rd Republican If MyChart confirm patients knows to login 15 min in advance. If 3rd constitution party confirm how she wants jon contacted [...] their most recent oxygen level in the [id number].Yes Informed patient that if they do not receive link for their video visit within 15 minutes of scheduled appointment time, to contact that office directly to see if clinic is running late? Yes Sleep Patients Only I completed the flowsheets for the [place] Sleepines Scale and FOSQ. Yes * Trey Sumner MD - 11/09/2021 1:00 PM EDT I have had the pleasure of seeing Ms. Gabrielle Cooper [facility] Impression: 1. Snoring, [...] will be better- to be done at [facility]. 2. We discussed treatment options and she is willing to consider CPAP treatment. If the study is positive for obstructive sleep apnea, we will therefore proceed with CPAP therapy. 3. Melatonin 3mg 2 hours prior to desired bedtime; bright light exposure x 30mins first thing when she wakes up. 4. She should never drive if drowsy and should pan puller at a safe place if she [...] suspected SAMIA. Previous sleep study: Yes [facility] 08/07/2021 No sleep apnea. 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 Serum Chemistry:No results found for: SODIUM, POTASSIUM, CHLORIDE, CO2, BUN, CREATSERUM, GLUCOSE HBA1c: No results found for: HGBA1C Thyroid function tests:No results found for: TSH, [id number], [id number], TSHBASELINE, TSHULTRASEN, TSHRFT4 Lipid profile: No results [...] Time to complete visit: Provider location: [place] ACTIVITY TIME Direct synchronous communication with the patient by video or telephone 20minutes Other patient care activities related to this service including chart/data review, coordination of care, and/or preparation of documentation. 5 minutes Total time spent on this service. 25 minutes [facility] History of Present illness Narrative* Med Hdz [...] 24, 2020 6:39 PM [facility] noteNo assessment information availableMer[facility] Work Phone: Evaluation note* Diagnosis Hypersomnia- Primary Hypersomnia, unspecified Morbid obesity with BMI of 40.0-44.9, adult [facility] Diagnosis Onset Date Resolution Status VINEET I (cervical intraepithelial neoplasia I) acute Obesity acute Tobacco use acute Menorrhagia with irregular cycle chronic Encounter for routine gynecological examination noneactive [facility] Work Phone: Evaluation note* Diagnosis Urinary frequency- Primary Vaginal discharge Leukorrhea, not specified as infective documented in this encounter [facility] note* Diagnosis Toothache- Primary Unspecified disorder of the teeth and supporting structures documented in this encounter [facility] note* Diagnosis Elevated blood pressure reading without diagnosis of hypertension- Primary documented in this encounter [facility] note* Diagnosis Dental infection- Primary Acute apical periodontitis of pulpal origin documented in this encounter [facility] note* Diagnosis URI with cough and congestion- Primary documented in this encounter [facility] note* Diagnosis Acute bronchitis, unspecified organism- Primary [facility] Additional Instructions The radiologist felt you are developing pneumonia in your lower lung field and secondary to this take the doxycycline/antibiotic as directed. Continue all the other medications prescribed by the urgent care but please stop using the prednisone as I feel your anxiety and palpitations are related to this. Return to ER should you have any further concernsWSelect [facility] Work Phone: Hospital Discharge instructionsAdditional Instructions Follow-up with gastroenterology again, and let them know that you are in the emergency department. You can return to the emergency department with fever, increased pain, or any new or worsening symptoms as well.[facility] Work Phone: Reason for referral (narrative)No reason for referral information availableBloomington Medical Services Work Phone: Chief Complaint and Reason for Visit Chief Complaint HYPERSOMNIA, FATIGUE ; LM 08/02 & 08/06 Chief Complaint HYPERSOMNIA, FATIGUE ; LM 08/02 & 08/06 THROAT Chief Complaint THROAT HYPERSOMNIA Chief Complaint THROAT HYPERSOMNIA DIZZINESS Chief Complaint Annual ([employer]) Reason for Visit VINEET I (cervical intr [...] Loose stools December 16, 2024 9: 31am Chief Complaint Admit Date 3 M FU October 06, 2024 1:29 pm ABDOMINAL PAIN DIARRHEA December 16 9:31am E-ORDER December 16, 2024 10 :04am DIARHEA December 16, 2024 7: 31pm Chief Complaint Admit Date 3 M FU October 06, 2024 1:29 pm ABDOMINAL PAIN DIARRHEA December 16 9:31am E-ORDER December 16, 2024 10 :04am DIARHEA December 16, 2024 7: 31pm 3 M FU January 06, 2025 1:11pm Reason for Visit Admit Date Axillary lump October 06, 2024 1:29 pm Hypersomnolence October 06, 2024 1:29 pm Hypertension October 06, 2024 1:29 pm Loose stools December 16, 2024 9: 31am Flu vaccine need January 06, 2025 1:11pm Loose stools January 06, 2025 1:11pm Tobacco use January 06, 2025 1:11pm Hypertension January 06, 2025 1:11pm Hypothyroidism January 06, 2025 1:11pm Vitamin D deficiency January 06 1:11pm Family History No Family History Records Found Relationship Condition Age at Onset Recorded Date/T carol grandfather Cardiac disease Unknown mother Diabetes mellitus Unknown grandmother Diabetes mellitus Unknown Advance Directives No Advanced Directives Records Found Advance Directive Response Recorded Date/ Time Living Will No January 30 6:45pm Power of Principal Associate No January 30, 2021 6:45pm Advance Directive Response Recorded Date/ Time Living Will No November 30 5:41pm Power of Principal Associate No November 30 5:41pm Advance Directive Response Recorded Date/ Time Living Will No December 29, 2021 3:24pm Power of Principal Associate No December 3:24pm Advance Directive Response Recorded Date/ Time Living Will No December 29, 2021 2:24pm Power of Principal Associate No December 2:24pm Advance Directive Response Recorded Date/ Time Living Will No July 24, 2023 10:40pm Power of Principal Associate No July 23 10:40pm Advance Directive Response Recorded Date/ Time Living Will No December 28 10:25pm Do you have a Healthcare Power of Principal Associate? No December 29, 2023 10:25pm Advance Directive Response Recorded Date/ Time Living Will No December 28 10:25pm Do you have a Healthcare Power of Principal Associate? No December 29, 2023 10:25pm Do you have a Healthcare Power of Principal Associate? No August 11, 2024 8:18pm Advance Directive Response Recorded Date/ Time Do you have a Healthcare Power of Principal Associate? No August 11, 2024 8:18pm Advance Directive Response Recorded Date/ Time Do you have a Healthcare Power of Principal Associate? No December 16, 2024 8:06pm Summary Purpose Additional Source Comments Goals (unrecognized [...] Referred To Contact Sleep Medicine Diagnoses Hypersomnia Raya Serrano CNP [address] [place] [address] [facility] [address] [place] [address] Referral ID Status Reason Start Date Expiration Date V isits Requested Visits Authorized [id number] New Request 10/31/2021 11/25/2022 1 1 Reason [...] section and content) DATE CREATED AUTHOR 12/27/2021 [facility] DATE CREATED AUTHOR AUTHOR'S ORGANIZ ATION 12/26/2023 [facility] DATE CREATED AUTHOR AUTHOR'S ORGANIZ ATION 08/23/2024 [facility] DATE CREATED AUTHOR AUTHOR'S ORGANIZ ATION 02/25/2025 [facility] Care Teams (unrecognized sec tion and content) Team Status: Active Member Role Status Dates [facility] Family Provider Active [facility] Primary Care Provider A ctive Team Status: Inactive Member Role Status Dates Raya Serrano , VOICE TEACHER-C Primary Care Provider, Referring P lionel Active Diane Vasquez VOICE TEACHER, VOICE TEACHER-C Attending Provider Active Team Status: Inactive Member Role Status Dates [facility] Primary Care Provider A ctive Blanka Cerna VOICE TEACHER, VOICE TEACHER-C Attending Provider Active Board Attendant Relationship Specialty Start Date End Date Gage Logan PCP - General Family Medicine 10/07/18 Team Status: Inactive Member Role Status Dates [facility] Primary Care Provider A ctive Dr. Sam Esquivel , DO Emergency Provider Active Board Attendant Relationship Specialty Start Date End Date Gage Logan PCP - General Family Medicine 10/07/18 Board Attendant Relationship Specialty Start Date End Date Gage Logan CNP PCP - General Family Medicine 10/07/18 Board Attendant Relationship Specialty Start Date End Date NehemiahTonyaBlanka, NP [address] [place] [address] PCP - General Family Medicine 02/06/24 Board Attendant Relationship Specialty Start Date End Date NehemiahBlankaGLENN [address] [place] [address] PCP - General Family Medicine 02/06/24 Team Status: Active Member Role Status Dates Dr. Lenore Meier MD Primary Care Provider Active Team Status: Inactive Member Role Status Dates Blanka Cerna VSC, VOICE TEACHER-C Primary Care Provider Activ e Start: March 22, 2024 End: March 22, 2024 Blanka LEONARDC, VOICE TEACHER-C Referring Provider Active Start: March 22, 2024 End: March 22, 2024 Agapito PRABHAKAR PA Attending Provider Active Start: March 22, 2024 End: March 22, 2024 Team Status: Inactive Member Role Status Dates Blanka LEONARDC, VOICE TEACHER-C Primary Care Provider Activ e Start: April 12, 2024 End: April 12, 2024 AKI Seaman Attending Provider Active Start: April 12, 2024 End: April 12, 2024 AKI Seaman Referring Provider Active Start: April 12, 2024 End: April 12, 2024 Team Status: Inactive Member Role Status Dates Blanka LEONARDC, VOICE TEACHER-C Primary Care Provider Activ e Start: May 06, 2024 End: May 06, 2024 Kathy Welsh VSC, VOICE TEACHER-C Attending Provider Active Start: May 06, 2024 End: May 06, 2024 Team Status: Inactive Member Role Status Dates Blanka LEONARDC, VOICE TEACHER-C Primary Care Provider Activ e Start: May 07, 2024 End: May 07, 2024 Blanka SIMMONS, VOICE TEACHER-C Referring Provider Active Start: May 07, 2024 End: May 07, 2024 AKI Seaman Attending Provider Active Start: May 07, 2024 End: May 07, 2024 Team Status: Inactive Member Role Status Dates Blanka Cerna VSC, VOICE TEACHER-C Primary Care Provider Activ e Start: June 30, 2024 End: June 30, 2024 Blanka LEONARDC, VOICE TEACHER-C Referring Provider Active Start: June 30, 2024 [...] Inactive Member Role Status Dates Diane Vasquez VOICE TEACHER, VOICE TEACHER-C Attending Provider Active Start: July 21, 2024 End: July 21, 2024 Diane Vasquez VOICE TEACHER, VOICE TEACHER-C Referring Provider Active Start: July 21, 2024 End: July 21, 2024 Dr. Lenore Meier MD Primary Care Provider Active Start: July 21, 2024 End: July 21, 2024 Board Attendant Relationship Specialty Start Date End Date Blanka Ceran NP [address] [place] [address] PCP - General Family Medicine 02/06/24 Team Status: Inactive Member Role Status Dates Dr. Lenore Meier MD Primary Care Provider Active Start: August 11, 2024 End: August 11, 2024 Dr. Nathen Jacobo DO Emergency Provider Activ e Start: August 11, 2024 End: August 11, 2024 Board Attendant Relationship Specialty Start Date End Date Blanka Cerna NP [address] [place] [address] PCP - General Family Medicine 02/06/24 Team [...] December 16, 2024 End: December 16, 2024 Team Status: Active Member Role/Relationship Status Dates Dr. Lenore Meier MD Primary Care Provider Active Start: December 16, 2024 AKI Seaman Attending Provider Active Start: December 16, 2024 AKI Seaman Referring Provider Active Start: December 16, 2024 Team Status: Inactive Member Role/Relationship Status Dates Dr. Lenore eMier MD Primary Care Provider Active Start: December 16, 2024 End: December 16, 2024 Stef Jaimes MD Emergency Provider Active Star t: December 16, 2024 End: December 16, 2024 Team Status: Inactive Member Role/Relationship Status Dates Dr. Lenore Meier MD Primary Care Provider Active Start: December 16, 2024 End: December 16, 2024 AKI Seaman Attending Provider Active Start: December 16, 2024 End: December 16, 2024 AKI Seaman Referring Provider Active Start: December 16, 2024 End: December 16, 2024 Team Status: Inactive Member Role/Relationship Status Dates Dr. Lenore Meier MD Primary Care Provider Active Start: December 16, 2024 End: December 16, 2024 Stef Jaimes MD Attending Provider Active Star t: December 16, 2024 End: December 16, 2024 Stef Jaimes MD Emergency Provider Active Star t: December 16, 2024 End: December 16, 2024 Team Status: Inactive Member Role/Relationship Status Dates Dr. Lenore Meier MD Primary care physician Activ e Start: October 06, 2024 End: October 06, 2024 Dr. Lenore Meier MD Attending physician Active Start: October 06, 2024 End: October 06, 2024 Dr. Lenore Meier MD Referring Provider Active Start: October 06, 2024 End: October 06, 2024 Team Status: Inactive Member Role/Relationship Status Dates Dr. Lenore Meier MD Primary care physician Activ e Start: December 16, 2024 End: December 16, 2024 Dr. Lenore Meier MD Referring Provider Active Start: December 16, 2024 End: December 16, 2024 AKI Seaman Attending physician Active Start: December 16, 2024 End: December 16, 2024 Team Status: Inactive Member Role/Relationship Status Dates Dr. Lenore Meier MD Primary care physician Activ e Start: December 16, 2024 End: December 16, 2024 AKI Seaman Attending physician Active Start: December 16, 2024 End: December 16, 2024 AKI Seaman Referring Provider Active Start: December 16, 2024 End: December 16, 2024 Team Status: Inactive Member Role/Relationship Status Dates Dr. Lenore Meier MD Primary care physician Activ e Start: December 16, 2024 End: December 16, 2024 Stef Jaimes MD Attending physician Active Sta rt: December 16, 2024 End: December 16, 2024 Stef Jaimes MD Emergency Department Physician Active Start: December 16, 2024 End: December 16, 2024 Team Status: Inactive Member Role/Relationship Status Dates Dr. Lenore Meier MD Attending physician Active Start: January 06, 2025 End: January 06, 2025 Dr. Lenore Meier MD Referring Provider Active Start: January 06, 2025 End: January 06, 2025 Source Comments (unrecognize d section and content) In the event this informatio n is protected by the Federal Confidentiality of Alcohol and Drug Abuse Patient Records regulations: The Federal rules restrict any use of the information to criminally investigate or prosecute any alcohol or drug abuse patient.[facility] HealthIn the event this information is protected by the Federal Confidentiality of Alcohol and Drug Abuse Patient Records regulations: The Federal rules restrict any use of the information to criminally investigate or prosecute any alcohol or drug abuse patient.[facility] HealthIn the event this information is protected by the Federal Confidentiality of Alcohol and Drug Abuse Patient Records regulations: The Federal rules restrict any use of the information to criminally investigate or prosecute any alcohol or drug abuse patient.[facility] HealthIn the event this information is protected by the Federal Confidentiality of Alcohol and Drug Abuse Patient Records regulations: The Federal rules restrict any use of the information to criminally investigate or prosecute any alcohol or drug abuse patient.[facility] HealthIn the event this information is protected by the Federal Confidentiality of Alcohol and Drug Abuse Patient Records regulations: The Federal rules restrict any use of the information to criminally investigate or prosecute any alcohol or drug abuse patient.[facility] HealthIn the event this information is protected by the Federal Confidentiality of Alcohol and Drug Abuse Patient Records regulations: The Federal rules restrict any use of the information to criminally investigate or prosecute any alcohol or drug abuse patient.[facility] HealthIn the event this information is protected by the Federal Confidentiality of Alcohol and Drug Abuse Patient Records regulations: The Federal rules restrict any use of the information to criminally investigate or prosecute any alcohol or drug abuse patient.[facility] FOR RECORDS PERTAINING TO PATIENTS WHO ARE [...] BE BASED ON THE PRIMARY CLINICAL RECORDS. [facility]. provides no warranty or guarantee of the accuracy or completeness of information in this document.
[2025-04-07] MEDS: Lactated Ringers 1,000 ML 15 ML IV (08:21)
--- NOTE | 2025-04-07 08:29 | PCM.PRE.AN2 ---
ASA Classification* ASA Classification ASA Classification: 2 Assessment & Plan Anesthesia* Anesthesia Assessment Anesthesia Assessment: Discussed sedation and/or anesthesia options, risks, benefits, and alternatives with patient/parents/legal guardian/POA. Questions invited. The patient/parents/legal guardian/POA seems to understand and agrees to proceed with anesthesia plan. Reviewed the physical assessment, medical history, allergy history and patient home medications list prior to surgery/procedure/anesthetic and documented any changes. Performed airway and anesthesia risk assessments. Anesthesia Type Anesthesia Type: MAC History Source History Obtained from:: Patient and Chart Anesthesia Focused Assessment* Temperature: 97.4 F Pulse Rate: 86 Respiratory Rate: 16 Pulse Ox: 98 Oxygen Delivery Method: Room Air Airway Assessment Mouth opens: >3 cm Mallampati Score: II Teeth Condition: Intact Neck Range of motion (ROM): Full ROM Labs Anesthesia Preop lab: CBC WBC, (4.4-11.0) 18.3 K/mm3 H 12/16/24, 20:40 RBC, (4.2-5.4) 4.40 M/mm3 12/16/24, 20:40 Hgb, (12.0-15.0) 12.9 g/dL 12/16/24, 20:40 Hct, (37-47) 39.1 % 12/16/24, 20:40 Plt Count, (150-450) 391 K/mm3 12/16/24, 20:40 CHEMISTRY Potassium, (3.3-5.1) 3.4 mmol/L 12/16/24, 20:40 Sodium, (133-145) 139 mmol/L 12/16/24, 20:40 BUN, (4-19) 8 mg/dL 12/16/24, 20:40 Creatinine, (0.70-1.20) 0.72 mg/dL 12/16/24, 20:40 Glucose, (70-99) 93 mg/dL 12/16/24, 20:40 TSH, (0.358-3.740) 2.640 uIU/mL 05/06/24, 15:52 COAG Urine Test Negative Negative 03/02/24, 11:59 [facility]st Clinic Negative 10/15/17, 15:06 Pre-Assessment Diagnosis/Proposed Procedure Planned Operative Procedure(s): COLONOSCOPY, EGD Anesthesia History 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 When Was Last Pacemaker Check QUESTION #4 FULL TEXT: You/Your Family Experience fever (hyperthermia) with Anesthesia Last Oral Intake Last Oral intake: Last Oral Intake NPO since 23:30 04/07/25 08:00 Meds taken in AM with sips of No 04/07/25 08:00 water? 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 craft worker electrician Female Yes 04/06/25 10:44 HX of Motion Sickness No 04/06/25 10:44 HX of N/V After Surgery No 04/06/25 10:44 Non-Smoker No 04/06/25 10:44 Duration of Surgery greater No 04/06/25 10:44 than 60 minutes Number of Risk Factors 1 04/06/25 10:44 PONV Score Low Risk 04/06/25 10:44 Height & Weight Height & Weight: Anesthesia: Height & Weight Height 5 ft 6.93 in 04/07/25 08:00 Weight: 129.274 kg 04/07/25 08:00 Body Mass Index (BMI) 44.7 04/07/25 08:00 Respiratory Assessment Respiratory Assessment - qualified craft worker electrician: Respiratory Tract Infection Hx - qualified craft worker electrician Hx Respiratory Tract Infection No 04/06/25 10:44 STOP Sleep Apnea STOP Sleep Apnea - qualified craft worker electrician: STOP Sleep Apnea - qualified craft worker electrician Hx Hypertension Yes: CONTROLLED WITH MED 04/06/25 10:44 Hx Sleep Apnea No 04/06/25 10:44 CPAP BIPAP Do you snore loudly (louder No 04/06/25 10:44 than talking or can be heard Do you often feel tired/ No 04/06/25 10:44 fatigued/ sleepy during daytime? Has anyone observed you stop No 04/06/25 10:44 breathing during sleep? STOP Results Negative 04/06/25 10:44 QUESTION #5 FULL TEXT : Do you snore loudly (louder than talking or can be heard through closed doors)? 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 Specify any problems Hx of Preganancy in last 3 No 04/06/25 10:44 Months Nurse Filling Out Transfusion VCHRISTIN 04/06/25 10:44 & Questions: Date: 04/06/25 04/06/25 10:44 Time: 10:45 04/06/25 10:44 Patient unable to answer at this time (ie. confused, unrespo /Reproduction History /Reproductive History - qualified craft worker electrician: /Reproductive Hx- qualified craft worker electrician Hx Now No 04/06/25 10:44 Gestational Age (in weeks): EDC: Hx Hx Para Hx Section SAB No 04/06/25 10:44 Does the father of the baby or his family experience fever w Father of the baby Malignant Hypertension history comment Active Medications Active Medications: Current Medications Generic Name Dose Route Start Last Admin Trade Name Freq PRN Reason Stop Dose Admin Lactated Ringer's 1,000 mls @ 15 mls/hr 04/07/25 08:15 04/07/25 08:21 IV 15 mls/hr .Q48H ANA Administration PFSH Medical History Cardiology follow-up encounter Encounter for vitamin deficiency screening Elevated hemoglobin A1c Morbid obesity Flu vaccine need Axillary lump Hypertension Dermatitis Hypersomnolence Rash Thyroid disease Low iron Heartburn Gastric reflux Smoker Bradycardia Vitamin D deficiency Iron deficiency Fatigue COVID-19 Anxiety Depression Hypothyroidism Body mass index [BMI] 45.0-49.9, adult Obesity VINEET I (cervical intraepithelial neoplasia I) Abnormal Pap smear of cervix PCOS (polycystic ovarian syndrome) Home Medications ?Medication ?Instructions ?Recorded ?Last Taken ?Type cholecalciferol (vitamin D3) 1,250 50,000 unit PO QWEEK 05/30/17 Unknown History mcg (50,000 unit) capsule ferrous sulfate 325 mg (65 mg 325 mg PO DAILY 12/26/23 04/04/25 History iron) tablet norethindrone (contraceptive) 0.35 0.35 mg PO QDAY #84 tabs 03/02/24 03/02/24 Rx mg tablet (Jacquelin) amlodipine 5 mg tablet 5 mg PO QDAY #30 tabs 10/06/24 Unknown Rx levothyroxine 75 mcg tablet 75 mcg PO DAILY #90 tabs 02/14/25 Unknown Rx omeprazole 40 mg capsule,delayed 40 mg PO QDAY #60 caps 03/09/25 Unknown Rx release spironolactone 50 mg tablet 50 mg PO DAILY 04/06/25 Unknown History Allergy/AdvReac Type Severity Reaction Status Date / Time amoxicillin Allergy Intermediate Rash Verified 04/06/25 10:39 clindamycin Allergy Rash Verified 04/06/25 10:39 Family History Grandfather Heart disease Mother Diabetes Grandmother Diabetes Surgical History Hx of esophagogastroduodenoscopy History of tonsillectomy Social History adopted: No household members: family current occupational status: employed current occupation: [employer] Smoking Status: Current every day smoker tobacco type: cigarettes alcohol intake: never substance use type: does not use caffeine: Yes frequency: 3-4 times per week seatbelt use: always do you feel safe at home: Yes additional social history: single Review of Systems (Anesthesia) ROS Narrative System reviewed and no additional complaints, except as documented.
[2025-04-07 08:40] LABS: Internal QC Validated? YES +Cl - CLEAR BKGD; Pregnancy, Serum, hCG Quali. NEGATIVE Negative
--- NOTE | 2025-04-07 08:45 | COLBX_PTH ---
PATIENT: RAMY RIVERA LOC: EN U#:[id number] AGE/SX: 29/F ROOM: RE04/07/[address]: Dr. Kaleb Power DO : 1995 BED: DIS: 04/07/2025 SPEC #: [id number] RECD: 04/07/25 12:10 STATUS: BIGG REMarixa #: [id number] DARREN: 04/07/25 08:[address]: Kaleb Power DEPT: SURGICAL PATHOLOGY RECD BY: Domo Clemente ENTERED: 04/07/25 14:18 SP TYPE: COLON BX OTHR DR: Dr. Lenore Meier MD Tissues: A - Esophagus, NOS B - Gastric mucous membrane C - Gastric mucous membrane D - Ileum, NOS Procedures: Immunohistochemical Stains Surgery Specimen Level IV HEADER OPERATION: Colonoscopy, EGD with biopsy PRE-OP DIAGNOSIS: Loose stools, constipation, epigastric pain TISSUE SUBMITTED: A- Distal esophagus biopsy, B- Gastric antrum biopsy, C- Gastric body biopsy, D- Terminal ileum biopsy MICROSCOPIC DIAGNOSIS A. Esophagus, distal, biopsy: Cardio-oxyntic mucosa, negative for goblet cell metaplasia. Scant squamous mucosa with reactive changes. B. Stomach, antrum, biopsy: Oxyntic and antral mucosa with features of reactive gastropathy. IHC negative for H. pylori organisms. C. Stomach, body, biopsy: Oxyntic mucosa with features of reactive gastropathy. Superficial pigment positive for iron (iron special stain) - see note. IHC negative for H. pylori organisms. Note: The iron pigment suggests ingestion of iron-containing compound/medication. Recommend clinical correlation. D. Large intestine, terminal ileum, biopsy: No specific pathologic change. MICROSCOPIC DESCRIPTION Slides are reviewed. All matched controls reacted appropriately. These tests were developed and their performance characteristics determined by [facility]. They may not have been cleared or approved by the U.S. Food and Drug Administration. The FDA has determined that such clearance or approval is not necessary. The above immunohistochemical markers are viewed by the Pathologist. GROSS DESCRIPTION A. Received in fixative is one container labeled with the patient's name and designated Distal esophagus biopsy. The specimen consists of two irregular fragments of espinosa tissue, each measuring 0.3 cm. The specimen is totally submitted in one cassette. B. Received in fixative is one container labeled with the patient's name and designated Gastric antrum biopsy. The specimen consists of one irregular fragment of espinosa tissue that measures 0.6 cm. The specimen is totally submitted in one cassette. C. Received in fixative is one container labeled with the patient's name and designated Gastric body biopsy. The specimen consists of two irregular fragments of espinosa tissue that measure 0.3 and 0.7 cm. The specimen is totally submitted in one cassette. D. Received in fixative is one container labeled with the patient's name and designated Terminal ileum biopsy. The specimen consists of one irregular fragment of espinosa tissue that measures 0.6 cm. The specimen is totally submitted in one cassette. [place] 04/07/2025 CPT:77704s4,8834x2,72154
--- NOTE | 2025-04-07 08:57 | PCM.HP.STD ---
HPI - General General Date of Admission: 04/07/25 Date of Service: 04/07/25 Chief Complaint: Abdominal pain and change in bowel habits HPI Narrative RAMY RIVERA, is a 29 F who presents for egd and colonoscopy [facility] ED 9.2.14; abd pain and dark stool. normal work up. CT abd/pelvis .24;CT abdomen pelvis .24; Possible hydrosalpinx on the right. Otherwise no acute disease. Recommend pelvic ultrasound. BGI established 24 w/ abd/epigastric pain and pressure for one month. EGD 03.02.24; - Normal esophagus. - Bilious gastric fluid. - Erythematous mucosa in the gastric body. Biopsied. - Erythematous duodenopathy. GES 04.12.24; 53 minutes normal OV 05.07.24 Pt has been doing well. She is no longer having abd/epigastric pain. She has been on omeprazole 40 mg which she feels has helped. She has also been adhering to a gastroparesis diet. She is having new issues with constipation. Her stools are large an much harder to pass than usual. She is having a bm once a day or every couple of days. She was on amoxicillin recently which helped with her bowels. She is not taking any stool softeners or laxatives. OV 12.16.24 patient having loose stool over the past 2 months. She is having loose stool 3-4 times per day. She describes it as watery and yellow. Symptoms are not related to oral intake and can happen randomly. She has abdominal cramping prior to the bowel movement. She denies nocturnal symptoms. Patient typically has constipation. Drinking Kefir did help her stools become a little bit more formed. [facility] ER 12/16/2024: Lab work largely unremarkable. CT of the abdomen and pelvis without abnormalities. Discharged. Stool 12/16/2024 calprotectin elevated 282, negative for enteric pathogens C. difficile and O&P. Recommended colonoscopy Calprotectin 02/14/2025: 36 OV 03/09/2025 - Patient having constipation with a bowel movement daily that is hard and small -Endorses straining and subsequent hemorrhoid development, hemorrhoid is tender -Having left upper quadrant abdominal pain, improves with oral intake -Taking PPI daily [facility] Medical History Cardiology follow-up encounter Encounter for vitamin deficiency screening Elevated hemoglobin A1c Morbid obesity Flu vaccine need Axillary lump Hypertension Dermatitis Hypersomnolence Rash Thyroid disease Low iron Heartburn Gastric reflux Smoker Bradycardia Vitamin D deficiency Iron deficiency Fatigue COVID-19 Anxiety Depression Hypothyroidism Body mass index [BMI] 45.0-49.9, adult Obesity VINEET I (cervical intraepithelial neoplasia I) Abnormal Pap smear of cervix PCOS (polycystic ovarian syndrome) Home Medications ?Medication ?Instructions ?Recorded ?Last Taken ?Type cholecalciferol (vitamin D3) 1,250 50,000 unit PO QWEEK 05/30/17 Unknown History mcg (50,000 unit) capsule ferrous sulfate 325 mg (65 mg 325 mg PO DAILY 12/26/23 04/04/25 History iron) tablet norethindrone (contraceptive) 0.35 0.35 mg PO QDAY #84 tabs 03/02/24 03/02/24 Rx mg tablet (Jacquelin) amlodipine 5 mg tablet 5 mg PO QDAY #30 tabs 10/06/24 Unknown Rx levothyroxine 75 mcg tablet 75 mcg PO DAILY #90 tabs 02/14/25 Unknown Rx omeprazole 40 mg capsule,delayed 40 mg PO QDAY #60 caps 03/09/25 Unknown Rx release spironolactone 50 mg tablet 50 mg PO DAILY 04/06/25 Unknown History Allergy/AdvReac Type Severity Reaction Status Date / Time amoxicillin Allergy Intermediate Rash Verified 04/06/25 10:39 clindamycin Allergy Rash Verified 04/06/25 10:39 Family History Grandfather Heart disease Mother Diabetes Grandmother Diabetes Surgical History Hx of esophagogastroduodenoscopy History of tonsillectomy Social History adopted: No household members: family current occupational status: employed current occupation: [employer] Smoking Status: Current every day smoker tobacco type: cigarettes alcohol intake: never substance use type: does not use caffeine: Yes frequency: 3-4 times per week seatbelt use: always do you feel safe at home: Yes additional social history: single ROS Constitutional Constitutional: Denies fatigue, fever(s), poor appetite, weight gain or weight loss Gastrointestinal Gastrointestinal: Denies belching, bloating, change in bowel habits, change in stool character, chewing difficulty, coffee ground emesis, constipation, cramping, diarrhea, dyspepsia, dysphagia, early satiety, excessive flatus, fecal incontinence, heartburn, hematemesis, hematochezia, hemorrhoids, loose stools, melena, nausea, odynophagia, rectal bleeding, tenesmus, vomiting or weight changes Patient's Goals Of Care . What would you like to achieve or improve as a result of your hospital stay?: none Vital Signs Vital Signs Vital Signs: 04/07/25 08:00 04/07/25 08:00 04/07/25 08:31 Temperature 97.4 F L 97.4 F L Temperature Source Temporal Pulse Rate 86 86 Respiratory Rate 16 16 Respiratory Pattern Normal Blood Pressure Source Monitor Blood Pressure Position Semi-Fowlers Pulse Ox 98 98 Oxygen Delivery Method Room Air Room Air Weight Weight: 285 lb Body Mass Index (BMI) 44.7 Physical Exam Const alert, oriented x3, no apparent distress and healthy appearing General Appearance: cooperative GI normal to inspection, nondistended, normoactive bowel sounds, soft to palpation, non-tender and non-distended Percussion: normal to percussion Rectal Exam: deferred Results Lab / Micro Data Labs: Laboratory Results - last 24 hr 04/07/25 08:23: Serum , Qual NEGATIVE Assessment & Plan Assessment/Plan (1) Loose stools: (2) Constipation: (3) Epigastric pain: PLAN: Assessment and Plan Assessment and Plan (1) Loose stools: Status: Acute (2) Constipation: Status: Acute Plan: [place] is a 29-year-old female patient with past medical history of hypothyroidism, PCOS, depression, obesity, tobacco use, hypertension and constipation here today for follow-up. Patient last seen in November 2024 for diarrhea. Stool testing revealed an elevated calprotectin and was recommended to have a colonoscopy however she did not have this done. Repeat stool test from January was within normal limits. Patient denies any further diarrhea but is now having constipation with daily bowel movements that are large and difficult to pass. Due to continued GI issues I recommended colonoscopy and she was agreeable to proceed. I recommended she take Colace daily to keep her bowels more regular and ensure adequate bowel preparation prior to her colonoscopy. Patient also having left upper quadrant abdominal pain over the last 2 months. Patient may have gas bloat syndrome or inflammation in her stomach. Recommended EGD in conjunction with colonoscopy - Colonoscopy - EGD - Continue PPI - Start stool softener - Follow-up after procedures Note: Portions of this note may have been selectively carried forward from previous documentation to ensure continuity and accuracy of the clinical record. All imported information has been reviewed and updated as necessary to reflect the current patient status, findings, and clinical decision-making for this encounter. [employer] speech recognition appeals specialist software was used to create portions of this document. Sound alike and misspelled words, as well as other appeals specialist errors may be contained in the documentation. (3) Epigastric pain: Status: Acute Medications: Refilled omeprazole 40 mg PO QDAY 60 caps 3RF ]
--- NOTE | 2025-04-07 09:42 | PCM.POST.ANE ---
Anesthesia: Postop Eval I Current Vital Signs Temperature: 97.2 F Pulse Rate: 72 Blood Pressure: 123/65 Respiratory Rate: 16 Pulse Ox: 99 Oxygen Delivery Method: Room Air Assessment Airway patent: Yes Spontaneous unlabored respirations: Yes Mental status: Awake and Calm nausea: No Vomiting: No Anesthesia Complication: No Fluid Hydration Crystalloid volume administer (ml): 800 Total IV fluid infused: 800 Progress Note Anesthesia document: Postop Eval 1 completed: Yes
--- NOTE | 2025-04-07 09:43 | OP.PROVAT_ITS ---
04/07/2025 Lenore Meier MD [address] [place] [address] [place] [address] Re : Upper GI endoscopy procedure for Gabrielle Cooper Dear Dr. Meier This procedure was performed on March. My impressions and recommendations are as follows: Impressions : - Z-line irregular, 35 cm from the incisors. Biopsied. - Erythematous mucosa in the gastric body and antrum. Biopsied. - No gross lesions in the entire examined duodenum. Recommendations : - Discharge patient to home. - Resume previous diet. - Continue present medications. - Await pathology results. - Repeat upper endoscopy today for surveillance. My findings are described in the full procedure note, which is enclosed. If I can be of further assistance, please feel free to contact me at . Sincerely, Kaleb Power, 04/07/2025 9:42:56 AM This report has been signed electronically.
--- NOTE | 2025-04-07 09:43 | OP.EGD_ITS ---
Patient Name: Gabrielle Cooper Procedure Date: 04/07/2025 9:00 AM Date of : 1995 Age: 29 Procedure: Upper GI endoscopy Indications: Epigastric abdominal pain, Abdominal pain in the left upper quadrant, Abdominal pain in the right lower quadrant Providers: Kaleb Power DO Referring MD: Lenore Meier MD Medicines: Monitored Anesthesia Care Patient Profile: This is a 29 year old female. Refer to note in patient chart for documentation of history and physical. Patient has symptoms of chronic right upper quadrant abdominal pain and chronic epigastric abdominal pain. Complications: No immediate complications. Procedure: Pre-Anesthesia Assessment: - Prior to the procedure, a History and Physical was performed, and patient medications and allergies were reviewed. The patient is competent. The risks and benefits of the procedure and the sedation options and risks were discussed with the patient. All questions were answered and informed consent was obtained. Patient identification and proposed procedure were verified by the physician in the pre-procedure area. Mental Status Examination: alert and oriented. Airway Examination: normal oropharyngeal airway and neck mobility. Respiratory Examination: clear to auscultation. CV Examination: normal. Prophylactic Antibiotics: The patient does not require prophylactic antibiotics. Prior Anticoagulants: The patient has taken no anticoagulant or antiplatelet agents except for NSAID medication. ASA Grade Assessment: II - A patient with mild systemic disease. After reviewing the risks and benefits, the patient was deemed in satisfactory condition to undergo the procedure. The anesthesia plan was to use monitored anesthesia care (MAC). Immediately prior to administration of medications, the patient was re-assessed for adequacy to receive sedatives. The heart rate, respiratory rate, oxygen saturations, blood pressure, adequacy of pulmonary ventilation, and response to care were monitored throughout the procedure. The physical status of the patient was re-assessed after the procedure. After obtaining informed consent, the endoscope was passed under direct vision. Throughout the procedure, the patient's blood pressure, pulse, and oxygen saturations were monitored continuously. The pediatric colonoscope was introduced through the mouth, and advanced to the third part of the duodenum. Small bowel enteroscopy was deemed necessary. The upper GI endoscopy was accomplished without difficulty. The patient tolerated the procedure well. Scope In: 9:17:13 AM Scope Out: 9:21:58 AM Total Procedure Duration Time 0 hours 4 minutes 45 seconds Findings: The Z-line was irregular and was found 35 cm from the incisors. Biopsies were taken with a cold forceps for histology. Verification of patient identification for the specimen was done. Estimated blood loss was minimal. Patchy mildly erythematous mucosa without bleeding was found in the gastric body and in the gastric antrum. Biopsies were taken with a cold forceps for histology. Biopsies were taken with a cold forceps for Helicobacter pylori testing. Verification of patient identification for the specimen was done. Estimated blood loss was minimal. No gross lesions were noted in the entire examined duodenum. Impression: - Z-line irregular, 35 cm from the incisors. Biopsied. - Erythematous mucosa in the gastric body and antrum. Biopsied. - No gross lesions in the entire examined duodenum. Recommendation: - Discharge patient to home. - Resume previous diet. - Continue present medications. - Await pathology results. - Repeat upper endoscopy today for surveillance. Procedure Code(s): --- Professional --- 76840, Small intestinal endoscopy, enteroscopy beyond second portion of duodenum, not including ileum; with biopsy, single or multiple CPT copyright 2021 [employer]. All rights reserved. The codes documented in this report are preliminary and upon energy management specialist review may be revised to meet current compliance requirements. Kaleb Power DO 04/07/2025 9:42:56 AM This report has been signed electronically. Number of Addenda: 0 Note Initiated On: 04/07/2025 9:00 AM
--- NOTE | 2025-04-07 09:46 | OP.COLON_ITS ---
Patient Name: Gabrielle Cooper Procedure Date: 04/07/2025 9:22 AM Date of : 1995 Age: 29 Procedure: Colonoscopy Indications: Clinically significant diarrhea of unexplained origin Providers: Kaleb Power DO Referring MD: Lenore Meier MD Medicines: Monitored Anesthesia Care Patient Profile: This is a 29 year old female. Refer to note in patient chart for documentation of history and physical. Patient has symptoms of chronic right upper quadrant abdominal pain and chronic epigastric abdominal pain. Last Colonoscopy: none. The patient's first colonoscopy is today. Complications: No immediate complications. Procedure: Pre-Anesthesia Assessment: - Prior to the procedure, a History and Physical was performed, and patient medications and allergies were reviewed. The patient is competent. The risks and benefits of the procedure and the sedation options and risks were discussed with the patient. All questions were answered and informed consent was obtained. Patient identification and proposed procedure were verified by the physician in the pre-procedure area. Mental Status Examination: alert and oriented. Airway Examination: normal oropharyngeal airway and neck mobility. Respiratory Examination: clear to auscultation. CV Examination: normal. Prophylactic Antibiotics: The patient does not require prophylactic antibiotics. Prior Anticoagulants: The patient has taken no anticoagulant or antiplatelet agents except for NSAID medication. ASA Grade Assessment: II - A patient with mild systemic disease. After reviewing the risks and benefits, the patient was deemed in satisfactory condition to undergo the procedure. The anesthesia plan was to use monitored anesthesia care (MAC). Immediately prior to administration of medications, the patient was re-assessed for adequacy to receive sedatives. The heart rate, respiratory rate, oxygen saturations, blood pressure, adequacy of pulmonary ventilation, and response to care were monitored throughout the procedure. The physical status of the patient was re-assessed after the procedure. After I obtained informed consent, the scope was passed under direct vision. Throughout the procedure, the patient's blood pressure, pulse, and oxygen saturations were monitored continuously. The pediatric colonoscope was introduced through the anus and advanced to the terminal ileum. The colonoscopy was performed without difficulty. The patient tolerated the procedure well. The quality of the bowel preparation was adequate. The terminal ileum, ileocecal valve, appendiceal orifice, and rectum were photographed. Scope In: 9:23:50 AM Scope Withdrawal Time 0 hours 6 minutes 37 seconds Scope Out: 9:33:04 AM Total Procedure Duration Time 0 hours 9 minutes 14 seconds Findings: The perianal and digital rectal examinations were normal. The colon (entire examined portion) appeared normal. Patchy mild inflammation characterized by erosions and erythema was found in the terminal ileum. Biopsies were taken with a cold forceps for histology. Verification of patient identification for the specimen was done. Estimated blood loss was minimal. Impression: - The entire examined colon is normal. - Mild inflammation was found in the ileum secondary to ileitis. Biopsied. Recommendation: - Discharge patient to home. - Resume previous diet. - Continue present medications. - Await pathology results. - Repeat colonoscopy (date not yet determined) for surveillance based on pathology results. Procedure Code(s): --- Professional --- 08314, Colonoscopy, flexible; with biopsy, single or multiple CPT copyright 2021 [employer]. All rights reserved. The codes documented in this report are preliminary and upon inpatient coder review may be revised to meet current compliance requirements. Kaleb Power DO 04/07/2025 9:46:23 AM This report has been signed electronically. Number of Addenda: 0 Note Initiated On: 04/07/2025 9:22 AM
--- NOTE | 2025-04-07 09:47 | OP.PROVAT_ITS ---
04/07/2025 Lenore Meier MD [address] [place] [address] [place] [address] Re : Colonoscopy procedure for Gabrielle Cooper Dear Dr. Meier This procedure was performed on March. My impressions and recommendations are as follows: Impressions : - The entire examined colon is normal. - Mild inflammation was found in the ileum secondary to ileitis. Biopsied. Recommendations : - Discharge patient to home. - Resume previous diet. - Continue present medications. - Await pathology results. - Repeat colonoscopy (date not yet determined) for surveillance based on pathology results. My findings are described in the full procedure note, which is enclosed. If I can be of further assistance, please feel free to contact me at . Sincerely, Kaleb Power, 04/07/2025 9:46:23 AM This report has been signed electronically.
--- NOTE | 2025-04-07 12:49 | PCM.POSTANE2 ---
Anesthesia Postop Eval I Sum Postop Eval Completion status Anesthesia document: Postop Eval 1 completed: Yes Anesthesia Postop Eval I Summary Anesthesia Postop Eval I Summary: Anesthesia Postop Eval I: Assessment Summary Airway patent Yes 04/07/25 09:43 [email or web address] Spontaneous unlabored Yes 04/07/25 09:43 [email or web address] respirations Mental status Awake,Calm 04/07/25 09:43 [email or web address] nausea No 04/07/25 09:43 [email or web address] Vomiting No 04/07/25 09:43 [email or web address] Anesthesia Postop Eval I: Fluid Summary Crystalloid volume administer 800 04/07/25 09:43 [email or web address] (ml) Colloids volume administered ( ml) Blood Product volume administered (ml) Total IV fluid infused 800 04/07/25 09:43 [email or web address] Anesthesia Postop Eval I: Summary Notes Anesthesia Complication No 04/07/25 09:43 [email or web address] Anesthesia Complication Comment: Post-operative progress note Anesthesia: Postop Eval II Evaluation Mental status: Awake and Calm Pain Level: 1 nausea: No Vomiting: No Complications Anesthesia Complication: No
== END 2025-04-07 10:19 | disposition home or self-care (01) ==
LOC: EN 07:44 → AC 07:44
PROVIDERS: Anesthesiology; PCP Internal Medicine; Referring Provider Internal Medicine; Visit Provider Internal Medicine Gastroenterology
PROC: 0DJD8ZZ Inspection of Lower Intestinal Tract, Via Natural or Artificial Opening Endoscopic (ICD-10-PCS; CPT 45378; principal; 2025-04-07 08:40)
DX: K52.9 Noninfective gastroenteritis and colitis, unspecified (principal); K59.00 Constipation, unspecified; F17.210 Nicotine dependence, cigarettes, uncomplicated; I10 Essential (primary) hypertension; Z79.899 Other long term (current) drug therapy; K21.9 Gastro-esophageal reflux disease without esophagitis; R10.13 Epigastric pain
CPT/HCPCS: 45380; 44361; 84703; 88305; 88342; J2405